=== PATIENT | female | born 1945 | race Caucasian/White ===

== ENCOUNTER 2017-03-15 09:43 | Outpatient (RCR) | payer MEDICARE, SELFPAY | END 2017-04-03 23:59 | LOC: NS 09:43 | PROVIDERS: Family Provider Internal Medicine; PCP Internal Medicine; Visit Provider Internal Medicine | DX: E11.65 Type 2 diabetes mellitus with hyperglycemia (principal); E23.2 Diabetes insipidus; Z71.3 Dietary counseling and surveillance | CPT/HCPCS: 97803 ==

== ENCOUNTER → 2017-04-09 09:12 | Outpatient (CLI) | payer MEDICARE, SELFPAY ==
[2017-02-08 08:31] VITALS: BMI 37.8
[2017-02-08 09:07] VITALS: BP 148/72
[2017-04-10 08:54] LABS: PTHIN 168.1 pg/mL (18.4-80.1)
== END ==
PROVIDERS: Family Provider Internal Medicine; PCP Internal Medicine; Visit Provider Internal Medicine Nephrology
DX: E21.3 Hyperparathyroidism, unspecified (principal)
CPT/HCPCS: 36415; 83970

== ENCOUNTER 2017-04-18 09:30 | Outpatient (RCR) | payer MEDICARE, SELFPAY ==
[2017-02-08 08:31] VITALS: BMI 37.8
[2017-02-08 09:07] VITALS: BP 148/72
== END 2017-04-18 09:31 ==
LOC: NS 09:30
PROVIDERS: Family Provider Internal Medicine; PCP Internal Medicine; Visit Provider Internal Medicine
DX: E11.65 Type 2 diabetes mellitus with hyperglycemia (principal); E23.2 Diabetes insipidus; Z68.38 Body mass index [BMI] 38.0-38.9, adult; Z71.3 Dietary counseling and surveillance
CPT/HCPCS: 97803

== ENCOUNTER → 2017-04-29 10:37 | Outpatient (CLI) | payer MEDICARE, SELFPAY ==
[2017-04-29 16:34] LABS: Albumin, Serum 3.4 g/dL (3.2-5.0); BUN 39 mg/dL (7-18); Calcium,Total 8.6 mg/dL (8.5-10.1); Chloride 111 mmol/L (98-107); Creatinine, Serum 1.77 mg/dL (0.55-1.02); EST Glomerular Filtration Rate 30 mL/min (>60); Est Glom Filt Rate - Afr Amer 36 mL/min (>60); Glucose 195 mg/dL (74-106); Phosphorus 4.2 mg/dL (2.5-4.9); Potassium 4.4 mmol/L (3.5-5.1); Sodium Level 142 mmol/L (136-145)
== END ==
LOC: MTLAB 10:39 → POLAB3 14:54
PROVIDERS: Family Provider Internal Medicine; PCP Internal Medicine; Visit Provider Internal Medicine Nephrology
DX: N18.3 Chronic kidney disease, stage 3 (moderate) (principal)
CPT/HCPCS: 36415; 80069

== ENCOUNTER → 2017-04-30 11:54 | Outpatient (CLI) | payer MEDICARE, SELFPAY ==
[2017-04-30 14:12] LABS: Protein, Urine (Random) 175.6 mg/dL (<11.9); Protein:Creat Ratio 2201 mg/g CRE (0-200)
== END ==
PROVIDERS: Family Provider Internal Medicine; PCP Internal Medicine; Visit Provider Internal Medicine Nephrology
DX: E11.22 Type 2 diabetes mellitus with diabetic chronic kidney disease (principal)
CPT/HCPCS: 82570; 84156

== ENCOUNTER → 2017-05-16 08:44 | Outpatient (CLI) | payer MEDICARE, SELFPAY ==
--- NOTE | 2017-05-16 08:47 | RDU_ITS ---
Reason For Study: renovascular HTN Right Renal Artery Left Renal Artery Right renal artery ostium 167/30.6 Left renal artery ostium 137/14.7 RSV/EDV. PSV/EDV. Right renal artery proximal Left renal artery proximal PSV/EDV 144/18.3 PSV/EDV. 182/18.3 . Right renal artery mid 156/15.9 Left renal artery mid 121/18.3 PSV/EDV. PSV/EDV . Right renal artery distal 125/18.3 Left renal artery distal 132/18.3 PSV/EDV. PSV/EDV. Right Renal Parenchyma Left Renal Parenchyma Upper Pole Medula 36.0/7.75 Left upper pole medulla 57.4/8.56 PSV/EDV. PSV/EDV . Right upper pole medulla EDR .22 . Left upper pole medulla EDR .15 . Right upper pole medulla R.I. .78 . Left upper pole medulla R.I. .85 . Upper [place] Cortx 22.6 PSV/EDV. UP Cortex 25.1 PSV/EDV. Right upper pole cortex EDR 0 . Left upper pole cortex EDR 0 . Right upper pole cortex R.I. 1.0 . Left upper pole cortex R.I. 1.0 . Right lower Pole medulla 26.3/5.5 Left lower Pole medulla 35.6/5.47 PSV/EDV . PSV/EDV . Right lower pole medulla EDR .21 . Left lower pole medulla EDR .15 . Right lower pole medulla R.I. .79 . Left lower pole medulla R.I. .85 . Lower Pole Cortex 13.8/3.97 Lower Pole Cortx 20.1 PSV/EDV. PSV/EDV. Left lower pole cortex EDR 0 . Right lower pole cortex EDR .29 . Left lower pole cortex R.I. 1.0 . Right lower pole cortex R.I. .71 . Left Renal Hilar Right Renal Hilar Left hilar acceleration time 81 Right hilar acceleration time 59 m/sec. m/sec. LT Hilar avg 52.6/7.33 PSV/EDV . Right Hilar avg 60.6/6.38 PSV/EDV. Left Renal Dimensions Right Renal Dimensions Left kidney size 11.1 cm . Right kidney size 11.2 cm . Left cortical dimension 1.34 cm . Right cortical dimension 1.46 cm . Aorta Proximal abdominal aorta 1.38 x 1.46 cm . Proximal abdominal aorta peak systolic velocity is 107 cm/sec . Limited views of the Aorta due to bowel gas and pt body habitus. Interpretation Summary <60% stenosis bilateral renal arteries with renal artery to aortic ratio not possible secondary to mildly elevated aortic velocity. Maintained renal length at 11.2 cm on the right and 11.1 cm on the left. Notably abnormal renal resistivity indices consistent with intrinsic renal parenchymal disease. Findings are not significantly different from a previous exam of 02/20/13 regarding renal artery flow. Ordering Physician: Ivanna Aguilar Performed By: Reyes Moreno RVT
== END ==
PROVIDERS: Family Provider Internal Medicine; PCP Internal Medicine; Visit Provider Internal Medicine Nephrology
DX: I15.0 Renovascular hypertension (principal)
CPT/HCPCS: 93975

== ENCOUNTER → 2017-05-20 07:15 | Outpatient (CLI) | payer MEDICARE, SELFPAY ==
[2017-05-20 10:10] LABS: Absolute Lymphocyte Count 1.49 X10^3/ul (0.83-4.51); Absolute Neutrophil Count 5.5 X10^3/uL (2.0-7.7); Basophil# 0.02 X10^3/uL; Basophil% 0.2 % (0-1); Eosinophil# 0.72 X10^3/uL; Eosinophils% 8.3 % (0-5); Hematocrit 30.3 % (37-47); Hemoglobin 10.1 g/dl (12.0-15.0); Lymphocyte # 1.49 X10^3/ul (4.0); Lymphocyte % 17.2 % (19-41); Mean Corp Hgb Conc 33.3 g/gl (32-36); Mean Corpuscular Hgb 30.4 pg (27.0-32.0); Mean Corpuscular Volume 91.3 fL (81-99); Mean Platelet Vol. 10.7 fl (6.2-12.0); Monocyte# 0.89 X10^3/uL; Monocyte% 10.3 % (0-10); Neutrophil # 5.52 X10^3/uL (2.7-7.7); Neutrophil % 63.9 % (47-70); POSITIVE COUNT NO; POSITIVE DIFFERENTIAL NO; POSITIVE MORPHOLOGY NO; Platelet Count 168 K/mm3 (150-450); RBC Distribution Width CV 13.2 % (11.6-14.6); RBC Distribution Width SD 43.8 fl (35.1-43.9); Red Blood Count 3.32 M/mm3 (4.2-5.4); White Blood Count 8.7 K/mm3 (4.4-11.0)
[2017-05-20 10:41] LABS: ALB/GLOB Ratio 1.1 RATIO (0.9-2.4); AST(SGOT) 22 U/L (15-37); Alanine Aminotransfer ALT/SGPT 36 U/L (13-56); Albumin, Serum 3.5 g/dL (3.2-5.0); Alkaline Phosphatase 83 U/L (45-117); Anion Gap 8 (5-15); BUN 36 mg/dL (7-18); BUN/Creat Ratio 18.8 RATIO (10-20); Calcium,Total 8.5 mg/dL (8.5-10.1); Chloride 113 mmol/L (98-107); Creatinine, Serum 1.92 mg/dL (0.55-1.02); EST Glomerular Filtration Rate 27 mL/min (>60); Est Glom Filt Rate - Afr Amer 33 mL/min (>60); Globulin 3.2 g/dL (2.2-4.2); Glucose 65 mg/dL (74-106); Potassium 4.1 mmol/L (3.5-5.1); Protein, Total 6.7 g/dL (6.4-8.2); Sodium Level 143 mmol/L (136-145)
== END ==
PROVIDERS: Family Provider Internal Medicine; PCP Internal Medicine; Visit Provider Internal Medicine Rheumatology
DX: L40.59 Other psoriatic arthropathy (principal); K21.0 Gastro-esophageal reflux disease with esophagitis; M17.0 Bilateral primary osteoarthritis of knee; L40.8 Other psoriasis; M65.30 Trigger finger, unspecified finger; E10.9 Type 1 diabetes mellitus without complications; I10 Essential (primary) hypertension
CPT/HCPCS: 36415; 80053; 85025

== ENCOUNTER → 2017-05-22 11:34 | Outpatient (CLI) | payer MEDICARE, SELFPAY ==
[2017-05-22 14:45] LABS: Hemoglobin A1c 6.6 % (4.2-6.3)
== END ==
PROVIDERS: Family Provider Internal Medicine; PCP Internal Medicine; Visit Provider Nurse Practitioner Family
DX: E11.9 Type 2 diabetes mellitus without complications (principal); Z79.4 Long term (current) use of insulin
CPT/HCPCS: 36415; 82043; 82570; 83036

== ENCOUNTER → 2017-05-28 11:26 | Outpatient (CLI) | payer MEDICARE, SELFPAY ==
[2017-05-28 14:54] LABS: Microalbumin:Creatinine Ratio 895.8 mg/g CRE (<30 mg/g CRE)
== END ==
PROVIDERS: Family Provider Internal Medicine; PCP Internal Medicine; Visit Provider Internal Medicine
DX: E11.9 Type 2 diabetes mellitus without complications (principal); Z79.4 Long term (current) use of insulin
CPT/HCPCS: 82043; 82570

== ENCOUNTER → 2017-06-07 11:21 | Outpatient (CLI) | payer MEDICARE, SELFPAY ==
[2017-06-07 13:11] LABS: Albumin, Serum 3.5 g/dL (3.2-5.0); BUN 32 mg/dL (7-18); BUN/Creat Ratio 17.5 RATIO (10-20); Calcium,Total 8.9 mg/dL (8.5-10.1); Chloride 113 mmol/L (98-107); Creatinine, Serum 1.83 mg/dL (0.55-1.02); EST Glomerular Filtration Rate 29 mL/min (>60); Est Glom Filt Rate - Afr Amer 35 mL/min (>60); Glucose 101 mg/dL (74-106); Potassium 4.4 mmol/L (3.5-5.1); Sodium Level 144 mmol/L (136-145)
== END ==
PROVIDERS: Family Provider Internal Medicine; PCP Internal Medicine; Visit Provider Internal Medicine Nephrology
DX: N18.3 Chronic kidney disease, stage 3 (moderate) (principal)
CPT/HCPCS: 36415; 80069

== ENCOUNTER → 2017-07-08 09:03 | Outpatient (CLI) | payer MEDICARE, SELFPAY ==
[2017-07-08 09:55] LABS: Absolute Lymphocyte Count 1.41 X10^3/ul (0.83-4.51); Absolute Neutrophil Count 5.4 X10^3/uL (2.0-7.7); Basophil# 0.03 X10^3/uL; Basophil% 0.4 % (0-1); Eosinophils% 8.4 % (0-5); Hematocrit 29.6 % (37-47); Hemoglobin 9.8 g/dl (12.0-15.0); Lymphocyte # 1.41 X10^3/ul (4.0); Lymphocyte % 16.9 % (19-41); Mean Corp Hgb Conc 33.1 g/gl (32-36); Mean Corpuscular Hgb 30.7 pg (27.0-32.0); Mean Corpuscular Volume 92.8 fL (81-99); Mean Platelet Vol. 10.4 fl (6.2-12.0); Monocyte# 0.77 X10^3/uL; Monocyte% 9.2 % (0-10); Neutrophil # 5.41 X10^3/uL (2.7-7.7); Neutrophil % 64.9 % (47-70); Platelet Count 163 K/mm3 (150-450); RBC Distribution Width CV 13.9 % (11.6-14.6); RBC Distribution Width SD 45.5 fl (35.1-43.9); Red Blood Count 3.19 M/mm3 (4.2-5.4); White Blood Count 8.3 K/mm3 (4.4-11.0)
[2017-07-08 10:14] LABS: POSITIVE COUNT NO; POSITIVE DIFFERENTIAL NO; POSITIVE MORPHOLOGY NO
[2017-07-08 10:18] LABS: AST(SGOT) 19 U/L (15-37); Alanine Aminotransfer ALT/SGPT 33 U/L (13-56); Albumin, Serum 3.3 g/dL (3.2-5.0); Alkaline Phosphatase 77 U/L (45-117); Anion Gap 7 (5-15); BUN 28 mg/dL (7-18); BUN/Creat Ratio 15.6 RATIO (10-20); Calcium,Total 8.6 mg/dL (8.5-10.1); Chloride 117 mmol/L (98-107); Creatinine, Serum 1.79 mg/dL (0.55-1.02); EST Glomerular Filtration Rate 30 mL/min (>60); Est Glom Filt Rate - Afr Amer 36 mL/min (>60); Globulin 3.3 g/dL (2.2-4.2); Glucose 106 mg/dL (74-106); Potassium 4.5 mmol/L (3.5-5.1); Protein, Total 6.6 g/dL (6.4-8.2); Sodium Level 146 mmol/L (136-145)
== END ==
PROVIDERS: Family Provider Internal Medicine; PCP Internal Medicine; Visit Provider Internal Medicine Rheumatology
DX: L40.59 Other psoriatic arthropathy (principal); M17.0 Bilateral primary osteoarthritis of knee; L40.8 Other psoriasis; M65.30 Trigger finger, unspecified finger; E10.9 Type 1 diabetes mellitus without complications; I10 Essential (primary) hypertension; K21.0 Gastro-esophageal reflux disease with esophagitis
CPT/HCPCS: 36415; 80053; 85025

== ENCOUNTER 2017-08-02 05:57 | Inpatient (IN) | payer MEDICARE, SELFPAY ==
[2017-08-02] VITALS (14 sets, daily range): BP systolic 160–233; BP diastolic 52–84; PULSE 66–87; RESP 11–20; TEMP 36.7–36.9; O2SAT 94–97; BMI 36.6
--- NOTE | 2017-08-02 06:00 | ED.RN ---
CALLED FOR EKG PER RN REQUEST, PULLED OLD EKG'S FOR
--- NOTE | 2017-08-02 06:35 | RAD_ITS ---
STUDY: X-RAY CHEST REASON FOR EXAM: Female, 71 years old. Shortness of breath TECHNIQUE: PA and lateral views of the chest. COMPARISON: February 19, 2013 FINDINGS: There are monitoring devices. There is interstitial accentuation. There are right perihilar and lower lung groundglass opacities. There is thickening of the fissure and blunting of the right costophrenic recess with small effusion. There is mild cardiac enlargement. Normal mediastinum and everardo. There is prominence of the pulmonary hilar arteries and peripheral pulmonary arteries, consistent with congestive heart failure (CHF). Normal visualized aortic arch and descending thoracic aorta. Normal visualized thoracic spine. Normal visualized ribs, clavicles, and shoulders. There is no demonstrated abnormality of the visualized soft tissue structures of the upper abdomen. RAD/Chest PA and Lateral IMPRESSION: CHF with right lower lung infiltrate or edema. Small pleural effusion. Electronically Signed: Sreekanth Guadarrama MD at 8:08 EDT , Service support ,
--- NOTE | 2017-08-02 06:35 | EKG12_ITS ---
Test Reason : Blood Pressure : / mmHG Vent. Rate : 075 BPM Atrial Rate : 075 BPM P-R Int : 132 ms QRS Dur : 084 ms QT Int : 390 ms P-R-T Axes : 059 024 059 degrees QTc Int : 435 ms Sinus rhythm with occasional Premature ventricular complexes Nonspecific ST abnormality Abnormal ECG Confirmed by EVA HEALY ([id number]), state editor GABRIELLE CORDERO ([id number]) on 08/12/2017 6:21:39 PM Referred By: AIDA Confirmed By:EVA HEALY
--- NOTE | 2017-08-02 06:37 | ED.VISSUMM ---
- ER Visit Summary Date of Service: 08/02/17 Chief Complaint: Dyspnea History of Present Illness: The patient is a 71 F increasing dyspnea over the past month. Symptoms worse with exertion. No chest pains. No cough. Increased leg swelling over the past couple weeks. No history of coronary disease or congestive heart failure. Denies recent travel, surgeries, or immobilizations. No history of PE or DVT. History of malignant hypertension on medications. States 3 chronic kidney disease with creatinine at baseline at 3 followed by nephrology, Dr. Aguilar. Denies headaches nausea, vomiting. States has been noticing intermittent dark stools over the past 5 weeks. 10 days ago started on iron supplements for anemia with blood checks by her application operations engineer. Denies any NSAID use. She does take baby aspirins. Physical Examination: General: Alert and oriented ?3, no acute distress HEENT: Normocephalic, atraumatic. Mild pale conjunctiva moist mucosa membranes Neck: supple, nontender. Cardiovascular: Regular rate and rhythm, no murmurs Respiratory: Normal breath sounds, symmetric, no distress Abdomen: Soft, nontender, nondistended Rectal: Extremities: Nontender, no edema, pulses intact ?4 Neuro: no focal neurological deficits. skin: Mild pallor Test Results: [] Emergency Department Course and Treatment: Patient worked up for her dyspnea symptoms. Pulse ox stable. Heart rate stable. She elevated blood pressure on arrival, monitoring transiently slowly improving. She history of malignant hypertension on multiple medications along with renal artery stenosis, she states her blood pressure normally runs high and fluctuates. Denies headaches or chest pains. No clinical leg swelling. Labs and images obtained. Patient will be signed out to morning physician for follow-up on testing. Treatment Plan: [] Disposition: Pending Impression: 1. Dyspnea This note was generated with [employer] software. It may contain incorrect words, spelling, and punctuation that were not noted in review of the chart prior to signing ED Disposition - Plan for ED Patient: Disposition: Acute Care Hospital [facility] Chief Complaint: Shortness of Breath
[2017-08-02 06:44] LABS: Absolute Lymphocyte Count 1.45 X10^3/ul (0.83-4.51); Basophil# 0.02 X10^3/uL; Basophil% 0.3 % (0-1); Eosinophil# 0.68 X10^3/uL; Eosinophils% 8.8 % (0-5); Hematocrit 28.3 % (37-47); Hemoglobin 9.3 g/dl (12.0-15.0); Lymphocyte # 1.45 X10^3/ul (4.0); Lymphocyte % 18.7 % (19-41); Mean Corp Hgb Conc 32.9 g/gl (32-36); Mean Corpuscular Hgb 29.7 pg (27.0-32.0); Mean Corpuscular Volume 90.4 fL (81-99); Mean Platelet Vol. 10.3 fl (6.2-12.0); Monocyte# 0.63 X10^3/uL; Monocyte% 8.1 % (0-10); Neutrophil # 4.95 X10^3/uL (2.7-7.7); Platelet Count 154 K/mm3 (150-450); RBC Distribution Width CV 14.3 % (11.6-14.6); RBC Distribution Width SD 46.9 fl (35.1-43.9); Red Blood Count 3.13 M/mm3 (4.2-5.4); White Blood Count 7.7 K/mm3 (4.4-11.0)
[2017-08-02 06:49] LABS: POSITIVE COUNT NO; POSITIVE DIFFERENTIAL NO; POSITIVE MORPHOLOGY NO
--- NOTE | 2017-08-02 06:59 | NURSING ---
BLUE TOP HEMOLIZED, LAB WILL REPRINT LABEL
[2017-08-02 07:03] LABS: Anion Gap 8 (5-15); BUN 29 mg/dL (7-18); BUN/Creat Ratio 15.8 RATIO (10-20); Calcium,Total 8.6 mg/dL (8.5-10.1); Chloride 116 mmol/L (98-107); Creatinine, Serum 1.84 mg/dL (0.55-1.02); EST Glomerular Filtration Rate 29 mL/min (>60); Est Glom Filt Rate - Afr Amer 35 mL/min (>60); Glucose 158 mg/dL (74-106); Potassium 4.2 mmol/L (3.5-5.1); Sodium Level 145 mmol/L (136-145)
--- NOTE | 2017-08-02 07:37 | NURSING ---
BLUE TOP NEEDS REDRAWN, RN AWARE
--- NOTE | 2017-08-02 08:25 | NURSING ---
CALLED LAB, TALKED TO ОЛЕГ IN [facility]. BTNP WILL BE [address] SEGURA AWARE
[2017-08-02 08:32] LABS: International Normalized Ratio 1.1; Prothrombin Time (Protime)PT. 13.7 SECONDS (11.7-14.9)
[2017-08-02 08:33] LABS: Partial Thromboplast Time 29.2 Seconds (24.1-36.2)
[2017-08-02] MEDS: Ipratropium/Albuterol Sulfate 3 ML AMPUL.NEB INHALATION (08:49)
--- NOTE | 2017-08-02 08:51 | NURSING ---
DR KARINE SEGURA
--- NOTE | 2017-08-02 08:52 | NURSING ---
PCU DYSPNEA, CHF, ANEMIA KARINE SEGURA
--- NOTE | 2017-08-02 08:53 | ED.VISSUMM ---
- ER Visit Summary Date of Service: 08/02/17 Chief Complaint: [Dyspnea] History of Present Illness: The patient is a 71 F [presented to ER with complaint of dyspnea and was fully evaluated by Dr. Gutierrez Aguilar. Care of patient turned over to me awaiting lab results and final disposition. Patient's chest x-ray was interpreted by radiology as CHF with edema in the right lower lobe. Patient became very dyspneic on return from restroom and tachypneic with respiratory rate in the mid 20s. Patient had some expiratory wheezes noted. Patient was ordered a DuoNeb aerosol and 40 mg of Lasix IV.] Physical Examination: [] Test Results: [BT BUILDING CUSTODIAN pending.] Emergency Department Course and Treatment: [] Treatment Plan: [Admit for further workup and evaluation of her new onset CHF] Disposition: [Admit] Impression: [Dyspnea CHF Anemia] This note was generated with [employer] dictation software. It may contain incorrect words, spelling, and punctuation that were not noted in review of the chart prior to signing ED Disposition - Plan for ED Patient: Chief Complaint: Shortness of Breath Referrals: Hamzah Wallis MD [Primary Care Provider] -
--- NOTE | 2017-08-02 08:59 | CASEMGMT ---
Social Work Note SW in to complete initial assessment. Introduced self and role at [facility]. Pt presents with pleasant affect as evidenced by smiling throughout conversation, and is accompanied by her spouse during assessment. Reports to live with her spouse in a one-story home with three entry steps. Denies access issues and is independent with ADL's. Still drives. No DME in the home, but does not anticipate need for DME at discharge. Confirms that her HCPOA is her spouse, Marcos, and believes we have her advanced directives on file. Confirms that her PCP is Dr. Wallis and her preferred pharmacy is [facility] in [place]. Other specialists she sees are Dr. Hui, Dr. Aguilar and Dr. Mace. Anticipates returning home at discharge. RN CM to follow for discharge planning as needed. Plan: Home Yuliet Clayton, SOCIAL PROBLEMS SPECIALIST, TUBE COREMAKER
[2017-08-02] MEDS: Furosemide 40 MG/4 ML Vial IV ×2 (09:30→17:06)
--- NOTE | 2017-08-02 10:10 | NURSING ---
CALLED LAB, TALKED TO ОЛЕГ. BTNP WILL BE DONE IN 7 MIN.
[2017-08-02 10:18] LABS: BNP,B-Type NATRIURETIC PEPTIDE 281.9 pg/mL (0-100)
--- NOTE | 2017-08-02 10:25 | NURSING ---
PT WITH SYSTOLIC BP OF >200 CONTINUES AND OFFGOING MD AWARE WELL DAYSHIFT DRGanga WITH NO ORDERS
--- NOTE | 2017-08-02 10:42 | ECHOD_ITS ---
Reason For Study: CHF Procedure This was a 2D Doppler, Color Flow transthoracic echocardiogram. Exam performed portable in patient room. Left Ventricle Moderate concentric left ventricular hypertrophy. The estimated ejection fraction is 65 %. Stage 2 diastolic dysfunction. No regional wall motion abnormalities noted. Right Ventricle Normal size and thickness. Normal systolic function. Atria The left atrium is moderately enlarged. Normal right atrium. Normal atrial septum. Mitral Valve The mitral valve is structurally normal. No prolapse or stenosis seen. Trivial mitral valve insufficiency. Tricuspid Valve Normal tricuspid valve. Trivial tricuspid valve insufficiency. Right ventricular systolic pressure estimated to be 51 mmHg. Moderate pulmonary hypertension. Aortic Valve Normal aortic valve. Trisinus/trileaflet aortic valve. Pulmonic Valve Normal pulmonic valve. Trivial pulmonic valve insufficiency. Great Vessels Normal aortic root. Normal arch. Normal inferior vena cava. Inferior vena cava collapse with sniff. Pericardium/Pleural No pericardial effusion. MMode/2D Measurements & Calculations LVIDd: 4.7 cm IVSd: 1.5 cm Ao root diam: 3.1 cm LVIDs: 2.7 cm LVPWd: 1.3 cm LA dimension: 4.4 cm FS: 43.1 % LAV(MOD-bp): 77.4 ml LA A4 area: 25.4 cm2 RA A4 area: 19.7 cm2 LAV(MOD-bp) Indexed: 37.7 ml/m2 LAV(MOD-sp2): 59.1 ml LAV(MOD-sp4): 86.8 ml Time Measurements MV dec time: 0.16 sec Doppler Measurements & Calculations MV E max oj: 110.4 cm/sec Lat Peak E' Oj: 8.6 cm/sec Med Peak E' Oj: 7.2 cm/sec MV A max oj: 91.3 cm/sec E/E' lat: 12.9 E/E' med: 15.3 MV E/A: 1.2 MV V2 max: 124.1 cm/sec MV P1/2t max oj: 124.1 cm/sec Ao V2 max: 155.9 cm/sec MV max P.2 mmHg MV P1/2t: 79.0 msec Ao max P.7 mmHg MV V2 mean: 73.1 cm/sec MV dec slope: 460.3 cm/sec2 Ao V2 mean: 95.3 cm/sec MV mean P.5 mmHg MVA(P1/2t): 2.8 cm2 Ao mean P.3 mmHg MV V2 VTI: 37.3 cm Ao V2 VTI: 32.8 cm LV V1 max: 113.4 cm/sec PA V2 max: 129.5 cm/sec TR max oj: 337.5 cm/sec LV V1 max P.1 mmHg TR max P.6 mmHg LV V1 mean P.6 mmHg LV V1 mean: 76.1 cm/sec LV V1 VTI: 28.0 cm Interpretation Summary Moderate concentric left ventricular hypertrophy. The estimated ejection fraction is 65 %. Stage 2 diastolic dysfunction. The left atrium is moderately enlarged. Trivial mitral valve insufficiency. Trivial tricuspid valve insufficiency. Right ventricular systolic pressure estimated to be 51 mmHg. Moderate pulmonary hypertension. Compared to echo report dated 02/19/2013, LV function has remained the same, but RVSP has increased from 30 to 51 mm Hg. Ordering Physician: Bebeto Lubin Referring Physician: Hamzah Wallis Performed By: Rock Moura RCS
[2017-08-02 11:35] LABS: Bedside Glucose 176 mg/dL (70-110)
--- NOTE | 2017-08-02 12:08 | PCM.HP.STD ---
<Greg Guerra - Last Filed: 08/02/17 12:08> Problem List (1) CHF (congestive heart failure) Status: Acute (2) GERD (gastroesophageal reflux disease) Status: Acute (3) Chronic kidney disease, stage 3 (moderate) Status: Chronic (4) HLD (hyperlipidemia) Status: Chronic (5) HTN (hypertension) Status: Chronic (6) Diabetes mellitus Status: Chronic History of Present Illness Date of Admission: 08/02/17 Chief Complaint: sob The patient is a 71 year old F with a hx of uncontrolled HTN, TIA, obesity, dmt2, CKDIII, HLD, GERD, who presented to the ER with increased SOB for the last month most severely the last 2 days with increased wheezing and swelling of her legs. She is worse with light exertion, even walking across the room. She has a hx of HTN and nonspecific palpitations for which she sees Dr. Hui. She does not have a history of CHF. She has noticed increased weight gain of 15 pounds. She sleeps with the head of her bed raised and wakes up in the morning coughing, SOB, and wheezing. She has no hx of COPD/asthma/smoking. She has no fevers or chills. She has no difficulty emptying her bladder and has been urinating frequently since receiving lasix in the ER. She does have some midsternal chest pain that she associates with eating. She denies any recent changes to her cardiac medications. [] Past Medical History Past Medical History (Chronic Problems): Chronic Problems (Last Reviewed 07/10/17 @ 13:35 by Christal De Leon) Bilateral edema of lower extremity (Chronic) Shortness of breath (Chronic) GERD (gastroesophageal reflux disease) (Chronic) Uncontrolled hypertension (Chronic) Chronic kidney disease, stage 3 (moderate) (Chronic) HLD (hyperlipidemia) (Chronic) HTN (hypertension) (Chronic) Type 2 diabetes mellitus treated with insulin (Chronic) Controlled type 2 diabetes mellitus with insulin therapy (Chronic) Left carotid bruit (Chronic) HTN (hypertension), malignant (Chronic) 5 drug therapy Rheumatoid arthritis (Chronic) Diabetes mellitus (Chronic) History of diverticulosis (Chronic) History of esophageal reflux (Chronic) Simple obesity (Chronic) Psoriasis (Chronic) Systolic hypertension with cerebrovascular disease (Chronic) multiple lacunar strokes related to HTN left tongue deviation Renal artery atherosclerosis (Chronic) moderate 3 renal arteries on left, anatomical variation Medical History: Medical History (Last Reviewed 07/10/17 @ 13:35 by Christal De Leon) Uncontrolled hypertension (Chronic) I10 Chronic kidney disease, stage 3 (moderate) (Chronic) N18.3 HLD (hyperlipidemia) (Chronic) E78.5 HTN (hypertension) (Chronic) I10 Hx of mini strokes Chronic osteoarthritis M19.90 GERD (gastroesophageal reflux disease) K21.9 GERD (gastroesophageal reflux disease) K21.9 Hyperlipidemia E78.5 Hypertension I10 Neuropathy G62.9 kidney ds Allergies amlodipine Allergy (Verified 08/02/17 06:48) Unknown azithromycin [From Zithromax] Allergy (Verified 08/02/17 06:48) Unknown bumetanide Allergy (Verified 08/02/17 06:48) Unknown chlorthalidone Allergy (Verified 08/02/17 06:48) Unknown clonidine HCl [From Catapres] Allergy (Verified 08/02/17 06:48) Rash diltiazem Allergy (Verified 08/02/17 06:48) Unknown furosemide Allergy (Verified 08/02/17 06:48) Unknown gemfibrozil Allergy (Verified 08/02/17 06:48) Unknown hydralazine [Hydralazine] Allergy (Verified 08/02/17 06:48) Swelling losartan [Losartan] Allergy (Verified 08/02/17 06:48) Unknown minoxidil Allergy (Verified 08/02/17 06:48) Unknown nifedipine Allergy (Verified 08/02/17 06:48) Unknown simvastatin [From Zocor] Allergy (Verified 08/02/17 06:48) Unknown triamterene [From Dyazide] Allergy (Verified 08/02/17 06:48) Unknown valdecoxib [From Bextra] Allergy (Verified 08/02/17 06:48) Unknown verapamil [Verapamil] Allergy (Verified 08/02/17 06:48) Unknown atorvastatin Adverse Reaction (Unknown, Verified 08/02/17 10:56) Swelling and cramping of the legs clonidine [From Catapres] Adverse Reaction (Unknown, Verified 08/02/17 10:56) Unknown esomeprazole [From Nexium] Adverse Reaction (Unknown, Verified 08/02/17 10:56) Swelling metformin [From Glucophage] Adverse Reaction (Unknown, Verified 08/02/17 10:56) Other kidney fxn worsened rosuvastatin [From Crestor] Adverse Reaction (Unknown, Unverified 08/02/17 10:56) leg cramps/ swelling atorvastatin calcium [From Lipitor] Adverse Reaction (Verified 08/02/17 06:48) Leg cramps/aching celecoxib [From Celebrex] Adverse Reaction (Verified 08/02/17 06:48) Leg aching hydrochlorothiazide Adverse Reaction (Verified 08/02/17 06:48) Legs aching indapamide Adverse Reaction (Verified 08/02/17 06:48) Other insulin detemir [From Levemir] Adverse Reaction (Verified 08/02/17 06:48) Unknown lansoprazole [From Prevacid] Adverse Reaction (Verified 08/02/17 06:48) Legs aching metformin HCl [From Glucophage] Adverse Reaction (Verified 08/02/17 06:48) Diarrhea pravastatin Adverse Reaction (Verified 08/02/17 06:48) Legs aching rosuvastatin calcium [From Crestor] Adverse Reaction (Verified 08/02/17 06:48) Legs aching amiloride + hydrochlorothiazide Adverse Reaction (Unknown, Uncoded 08/02/17 06:48) Unknown Home Medications: Ambulatory Orders Medication Instructions Recorded Carvedilol [Coreg] 25 mg PO BID 10/31/16 Hydroxychloroquine [Plaquenil] 200 mg PO BIDCM 10/31/16 traMADol [Ultram (G)] 50 mg PO Q4H PRN PRN 10/31/16 ascorbate calcium 500 mg capsule 500 mg PO QDAY 02/07/17 lisinopril 40 mg tablet 40 mg PO QDAY 02/07/17 aspirin 81 mg tablet,delayed 81 mg PO QDAY 02/13/17 release coenzyme Q10 100 mg capsule 100 mg PO QDAY 02/13/17 glucose 4 gram chewable tablet 4 g PO ONCE PRN #30 tab 02/13/17 doxazosin 2 mg tablet 2 mg PO QDAY #30 tab 03/06/17 insulin glargine (U-100) 100 50 unit SC QDAY ml 04/12/17 unit/mL (3 mL) subcutaneous pen omeprazole 20 mg capsule,delayed 20 mg PO BID cap 06/11/17 release amlodipine 10 mg tablet 10 mg PO DAILY tab 07/25/17 furosemide 20 mg tablet 20 mg PO QDAY tab 07/25/17 Glimepiride [Amaryl] 2 mg PO QDAY 08/02/17 Surgical History: Surgical History (Last Reviewed 07/10/17 @ 13:35 by Christal De Leon) History of appendectomy Z90.49 S/P breast lumpectomy Z98.890 benign gallbladder removed surgery on finger due to infection Surgical History: appendectomy, cholecystectomy Psychiatric History: 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psych hx [employer] History: 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[employer] history Lives: Spouse/ Significant Other Smoking Status: Never smoker Tobacco Use: Non-smoker Alcohol: None Drugs: None - *Family History Maternal Family History: Family History (Last Reviewed 07/10/17 @ 13:35 by Christal De Leon) Mother Diabetes Heart disease CVA (cerebral vascular accident) Myocardial infarction Father Cancer Brother Kidney disease Sister Diabetes Hypertension Mother Diabetes Heart disease CVA (cerebral vascular accident) Myocardial infarction Father Cancer Sister Hypertension Diabetes History Items: 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history Review of Systems Constitutional: Denies: Chills, Fever, Weight Change HEENT: Denies: Head Aches, Sinus Congestion, Sinus Drainage Cardiovascular: Reports: Chest Pressure, Edema. Denies: Chest Pain, Palpitations Respiratory: Reports: Cough, Shortness of Breath, Shortness of breath at rest, Shortness of breath upon exertion, Sputum production, Wheezing Gastrointestinal: Denies: Abdominal Pain, Nausea, Vomiting Genitourinary: Denies: Dysuria Musculoskeletal: Denies: Joint Pain, Joint Tenderness Skin: Denies: Rash, Wounds Neurological: Denies: Numbness, Tingling, Focal weakness Psychiatric: Denies: Anxiety, Depression, Homicidal Ideations, Suicidal Ideations Hematologic/ Lymphatic: Denies: Easy Bruising, Easy Bleeding VTE Information - Inpt Only VTE Present on Admission: No VTE Mechan Device Prophylaxis: None VTE Pharm Prophylaxis ordered?: Yes Patient Problems: Active and Suspected Problems (Last Reviewed 07/10/17 @ 13:35 by Christal De Leon) CHF (congestive heart failure) (Acute) - Physical Exam General: Alert, Oriented x3, Cooperative HEENT: Atraumatic, PERRLA, EOMI, Normocephalic Neck: Supple, No JVD, Negative Carotid Bruits Lungs: Wheezes - faint end exp Cardiovascular: Regular rate, No murmurs Abdomen: Bowel Sounds Present, Soft, Non Tender Extremities: Capillary Refill Less than 3 Seconds, Edema - 2+ pitting edema BLE Skin: No rashes, No breakdown Musculoskeletal: No Tenderness to Palpation of Joints or Extremities Neurological: Cranial nerves II-XII grossly intact Psych/Mental Status: Normal Affect, Appropriate, Alert and oriented to time, place, person, mood and affect Vital Signs Temp Pulse Resp BP Pulse Ox 98.3 F 75 14 221/84 H 94 08/02/17 10:52 08/02/17 10:52 08/02/17 10:52 08/02/17 10:53 08/02/17 10:52 Oxygen Delivery Method Room Air Weight: 99.881 kg Body Mass Index (BMI) 36.6 Laboratory Tests Past 24 Hrs 08/02/17 11:00 Troponin I < 0.015 POC Glucose 08/02/17 11:16 POC Glucose 176 H Assessment/Plan All Active Problems (Last Reviewed 07/10/17 @ 13:35 by Christal De Leon) CHF (congestive heart failure) (Acute) 1. Acute CHF exacerbation - subtype unclear. Pt of Dr. Hui, no prior hx. Maintain on tele. Provide IV lasix. -cxr c/w CHF, elevated BNP -BL LE edema, 15 pound weight gain, + orthopnea -Obtain Echo -maintain on tele -trop neg x 2. -already on carlos, BB 2. HTN urgency - as evidenced by Systolic >200 in the presence of heart failure, DC hydralazine as she has allergy - swelling. Add IV lopressor. Numerous drug allergies to antihtn agents. 3. CKD III - trend. Pt of Dr. Aguilar 4. DMt2 with obesity - continue home insulin + SSI 5. Anemia - normocytic - trend. Stool occult blood neg. Suspect 2/2 chronic dz, CKD. 6. Hx of psoriasis - on plaquenil 7. HLD - statin allergic. 8. Hx TIA - on asa, statin intolerant, needs improved HTN control. DVT ppx: heparin DC planning: home when stable This patient was seen by Greg Guerra PA-C under the supervision of Doctor Tristian. <Bebeto Lubin - Last Filed: 08/02/17 16:36> Problem List (1) CHF (congestive heart failure) Status: Acute (2) GERD (gastroesophageal reflux disease) Status: Chronic Qualifiers: (3) Uncontrolled hypertension Status: Chronic (4) Chronic kidney disease, stage 3 (moderate) Status: Chronic (5) HLD (hyperlipidemia) Status: Chronic (6) HTN (hypertension) Status: Chronic Qualifiers: (7) Type 2 diabetes mellitus treated with insulin Status: Chronic (8) HTN (hypertension), malignant Status: Chronic Comment: 5 drug therapy (9) Rheumatoid arthritis Status: Chronic Qualifiers: Rheumatoid arthritis location: multiple sites Rheumatoid factor presence: unspecified presence Qualified Code(s): M06.9 - Rheumatoid arthritis, unspecified; M06.9 - Rheumatoid arthritis, unspecified; M06.9 - Rheumatoid arthritis, unspecified; M06.9 - Rheumatoid arthritis, unspecified (10) History of diverticulosis Status: Chronic (11) History of esophageal reflux Status: Chronic (12) Simple obesity Status: Chronic (13) Psoriasis Status: Chronic History of Present Illness The patient is a 71 year old F is with a long month long history of shortness of breath on exertion. In the emergency room patient had a BMP that was slightly elevated in the 200s chest x-ray is negative. Concern was for the patient's symptoms and was for heart failure. Patient herself denies any chest pain but did receive Lasix in the emergency room. [] Past Medical History Medical History: Medical History (Last Reviewed 08/02/17 @ 16:33 by Bebeto Lubin DO) Uncontrolled hypertension (Chronic) I10 Chronic kidney disease, stage 3 (moderate) (Chronic) N18.3 HLD (hyperlipidemia) (Chronic) E78.5 HTN (hypertension) (Chronic) I10 Hx of mini strokes Chronic osteoarthritis M19.90 GERD (gastroesophageal reflux disease) K21.9 GERD (gastroesophageal reflux disease) K21.9 Hyperlipidemia E78.5 Hypertension I10 Neuropathy G62.9 kidney ds Allergies amlodipine Allergy (Verified 08/02/17 06:48) Unknown azithromycin [From Zithromax] Allergy (Verified 08/02/17 06:48) Unknown bumetanide Allergy (Verified 08/02/17 06:48) Unknown chlorthalidone Allergy (Verified 08/02/17 06:48) Unknown clonidine HCl [From Catapres] Allergy (Verified 08/02/17 06:48) Rash diltiazem Allergy (Verified 08/02/17 06:48) Unknown furosemide Allergy (Verified 08/02/17 06:48) Unknown gemfibrozil Allergy (Verified 08/02/17 06:48) Unknown hydralazine [Hydralazine] Allergy (Verified 08/02/17 06:48) Swelling losartan [Losartan] Allergy (Verified 08/02/17 06:48) Unknown minoxidil Allergy (Verified 08/02/17 06:48) Unknown nifedipine Allergy (Verified 08/02/17 06:48) Unknown simvastatin [From Zocor] Allergy (Verified 08/02/17 06:48) Unknown triamterene [From Dyazide] Allergy (Verified 08/02/17 06:48) Unknown valdecoxib [From Bextra] Allergy (Verified 08/02/17 06:48) Unknown verapamil [Verapamil] Allergy (Verified 08/02/17 06:48) Unknown atorvastatin Adverse Reaction (Unknown, Verified 08/02/17 10:56) Swelling and cramping of the legs clonidine [From Catapres] Adverse Reaction (Unknown, Verified 08/02/17 10:56) Unknown esomeprazole [From Nexium] Adverse Reaction (Unknown, Verified 08/02/17 10:56) Swelling metformin [From Glucophage] Adverse Reaction (Unknown, Verified 08/02/17 10:56) Other kidney fxn worsened rosuvastatin [From Crestor] Adverse Reaction (Unknown, Verified 08/02/17 16:25) leg cramps/ swelling atorvastatin calcium [From Lipitor] Adverse Reaction (Verified 08/02/17 06:48) Leg cramps/aching celecoxib [From Celebrex] Adverse Reaction (Verified 08/02/17 06:48) Leg aching hydrochlorothiazide Adverse Reaction (Verified 08/02/17 06:48) Legs aching indapamide Adverse Reaction (Verified 08/02/17 06:48) Other insulin detemir [From Levemir] Adverse Reaction (Verified 08/02/17 06:48) Unknown lansoprazole [From Prevacid] Adverse Reaction (Verified 08/02/17 06:48) Legs aching metformin HCl [From Glucophage] Adverse Reaction (Verified 08/02/17 06:48) Diarrhea pravastatin Adverse Reaction (Verified 08/02/17 06:48) Legs aching rosuvastatin calcium [From Crestor] Adverse Reaction (Verified 08/02/17 06:48) Legs aching amiloride + hydrochlorothiazide Adverse Reaction (Unknown, Uncoded 08/02/17 06:48) Unknown Surgical History: Surgical History (Last Reviewed 07/10/17 @ 13:35 by Christal De Leon) History of appendectomy Z90.49 S/P breast lumpectomy Z98.890 benign gallbladder removed surgery on finger due to infection Surgical History: appendectomy, cholecystectomy Psychiatric History: 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psych hx [employer] History: 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[employer] history Lives: Spouse/ Significant Other Smoking Status: Never smoker Tobacco Use: Non-smoker Alcohol: None Drugs: None - *Family History Maternal Family History: Family History (Last Reviewed 08/02/17 @ 16:33 by Bebeto Lubin DO) Mother Diabetes Heart disease CVA (cerebral vascular accident) Myocardial infarction Father Cancer Brother Kidney disease Sister Diabetes Hypertension Mother Diabetes Heart disease CVA (cerebral vascular accident) Myocardial infarction Father Cancer Sister Hypertension Diabetes Review of Systems Constitutional: Denies: Chills, Fever, Weight Change HEENT: Denies: Head Aches, Sinus Congestion, Sinus Drainage Cardiovascular: Reports: Chest Pressure, Edema. Denies: Chest Pain, Palpitations Respiratory: Reports: Cough, Shortness of Breath, Shortness of breath at rest, Shortness of breath upon exertion, Sputum production, Wheezing Gastrointestinal: Denies: Abdominal Pain, Nausea, Vomiting Genitourinary: Denies: Dysuria Musculoskeletal: Denies: Joint Pain, Joint Tenderness Skin: Denies: Rash, Wounds Neurological: Denies: Focal weakness, Numbness, Tingling Psychiatric: Denies: Anxiety, Depression, Homicidal Ideations, Suicidal Ideations Hematologic/ Lymphatic: Denies: Easy Bruising, Easy Bleeding VTE Information - Inpt Only VTE Present on Admission: No VTE Mechan Device Prophylaxis: None VTE Pharm Prophylaxis ordered?: Yes - Physical Exam General: Alert, Cooperative, - - No respiratory distress. No conversational dyspnea. HEENT: Atraumatic, Normocephalic Neck: No Nodes, Thyroid Normal Size and Texture Lungs: Clear to auscultation, Normal air movement, No rhonchi, No wheeze Cardiovascular: Regular rate, Regular Rhythm, Normal S1, Normal S2 Abdomen: Bowel Sounds Present, Soft, Non Tender, Non-Distended Extremities: No Calf Tenderness, Edema Skin: No rashes, No breakdown Musculoskeletal: No Tenderness to Palpation of Joints or Extremities, No Muscle Wasting Neurological: Neuro grossly intact, Sensory exam intact to light touch and pain Psych/Mental Status: Normal Affect, Appropriate Vital Signs Temp Pulse Resp BP Pulse Ox 36.7 C 69 16 160/78 H 96 08/02/17 16:25 08/02/17 16:25 08/02/17 16:25 08/02/17 16:25 08/02/17 16:25 Oxygen Delivery Method Room Air Weight: 99.881 kg Body Mass Index (BMI) 36.6 Intake and Output for Last 24 Hours 07/31/17 08/01/17 08/02/17 23:59 23:59 23:59 Intake Total 120 / 120 Balance 120 / 120 Laboratory Tests Past 24 Hrs 08/02/17 08/02/17 11:00 13:30 Troponin I < 0.015 < 0.015 POC Glucose 08/02/17 11:16 POC Glucose 176 H Chest x-ray reviewed and showed no acute process. Assessment/Plan Patient seen and examined independently. Data reviewed. I agree with the above note by the physician legislative assistant. 1. Suspected acute CHF exacerbation Echocardiogram pending Continue with IV Lasix for now Given the patient's symptoms would be concerned about right heart failure. Patient does endorse that her tells her she snores. 2. Hypertensive urgency Blood pressure was in the 200s systolic in the emergency room but has improved into the 160s for now. 3. Advanced care planning: Patient wishes to be full CODE STATUS at this time. Code Visit Inpatient E&M: [id number] Init Hosp L3
[2017-08-02] MEDS: Carvedilol 25 MG Tablet PO ×2 (12:17→21:18)
[2017-08-02] MEDS: Glimepiride 2 MG Tablet PO (12:17)
[2017-08-02] MEDS: Heparin Injection (Vial) 5,000 UNIT/ML VIAL 5000 UNIT SC ×2 (12:18→21:18)
[2017-08-02] MEDS: Aspirin E.C. 81 MG Tablet PO (12:18)
--- NOTE | 2017-08-02 12:18 | HP.PCM_ITS ---
<Greg Guerra - Last Filed: 08/02/17 12:08> Problem List (1) CHF (congestive heart failure) Status: Acute (2) GERD (gastroesophageal reflux disease) Status: Acute (3) Chronic kidney disease, stage 3 (moderate) Status: Chronic (4) HLD (hyperlipidemia) Status: Chronic (5) HTN (hypertension) Status: Chronic (6) Diabetes mellitus Status: Chronic History of Present Illness Date of Admission: 08/02/17 Chief Complaint: sob The patient is a 71 year old F with a hx of uncontrolled HTN, TIA, obesity, dmt2 , CKDIII, HLD, GERD, who presented to the ER with increased SOB for the last month most severely the last 2 days with increased wheezing and swelling of her legs. She is worse with light exertion, even walking across the room. She has a hx of HTN and nonspecific palpitations for which she sees Dr. Hui. She does not have a history of CHF. She has noticed increased weight gain of 15 pounds. She sleeps with the head of her bed raised and wakes up in the morning coughing , SOB, and wheezing. She has no hx of COPD/asthma/smoking. She has no fevers or chills. She has no difficulty emptying her bladder and has been urinating frequently since receiving lasix in the ER. She does have some midsternal chest pain that she associates with eating. She denies any recent changes to her cardiac medications. [] Past Medical History Past Medical History (Chronic Problems): Chronic Problems (Last Reviewed 07/10/17 @ 13:35 by Christal De Leon) Bilateral edema of lower extremity (Chronic) Shortness of breath (Chronic) GERD (gastroesophageal reflux disease) (Chronic) Uncontrolled hypertension (Chronic) Chronic kidney disease, stage 3 (moderate) (Chronic) HLD (hyperlipidemia) (Chronic) HTN (hypertension) (Chronic) Type 2 diabetes mellitus treated with insulin (Chronic) Controlled type 2 diabetes mellitus with insulin therapy (Chronic) Left carotid bruit (Chronic) HTN (hypertension), malignant (Chronic) 5 drug therapy Rheumatoid arthritis (Chronic) Diabetes mellitus (Chronic) History of diverticulosis (Chronic) History of esophageal reflux (Chronic) Simple obesity (Chronic) Psoriasis (Chronic) Systolic hypertension with cerebrovascular disease (Chronic) multiple lacunar strokes related to HTN left tongue deviation Renal artery atherosclerosis (Chronic) moderate 3 renal arteries on left, anatomical variation Medical History: Medical History (Last Reviewed 07/10/17 @ 13:35 by Christal De Leon) Uncontrolled hypertension (Chronic) I10 Chronic kidney disease, stage 3 (moderate) (Chronic) N18.3 HLD (hyperlipidemia) (Chronic) E78.5 HTN (hypertension) (Chronic) I10 Hx of mini strokes Chronic osteoarthritis M19.90 GERD (gastroesophageal reflux disease) K21.9 GERD (gastroesophageal reflux disease) K21.9 Hyperlipidemia E78.5 Hypertension I10 Neuropathy G62.9 kidney ds Allergies amlodipine Allergy (Verified 08/02/17 06:48) Unknown azithromycin [From Zithromax] Allergy (Verified 08/02/17 06:48) Unknown bumetanide Allergy (Verified 08/02/17 06:48) Unknown chlorthalidone Allergy (Verified 08/02/17 06:48) Unknown clonidine HCl [From Catapres] Allergy (Verified 08/02/17 06:48) Rash diltiazem Allergy (Verified 08/02/17 06:48) Unknown furosemide Allergy (Verified 08/02/17 06:48) Unknown gemfibrozil Allergy (Verified 08/02/17 06:48) Unknown hydralazine [Hydralazine] Allergy (Verified 08/02/17 06:48) Swelling losartan [Losartan] Allergy (Verified 08/02/17 06:48) Unknown minoxidil Allergy (Verified 08/02/17 06:48) Unknown nifedipine Allergy (Verified 08/02/17 06:48) Unknown simvastatin [From Zocor] Allergy (Verified 08/02/17 06:48) Unknown triamterene [From Dyazide] Allergy (Verified 08/02/17 06:48) Unknown valdecoxib [From Bextra] Allergy (Verified 08/02/17 06:48) Unknown verapamil [Verapamil] Allergy (Verified 08/02/17 06:48) Unknown atorvastatin Adverse Reaction (Unknown, Verified 08/02/17 10:56) Swelling and cramping of the legs clonidine [From Catapres] Adverse Reaction (Unknown, Verified 08/02/17 10:56) Unknown esomeprazole [From Nexium] Adverse Reaction (Unknown, Verified 08/02/17 10:56) Swelling metformin [From Glucophage] Adverse Reaction (Unknown, Verified 08/02/17 10:56) Other kidney fxn worsened rosuvastatin [From Crestor] Adverse Reaction (Unknown, Unverified 08/02/17 10:56 ) leg cramps/ swelling atorvastatin calcium [From Lipitor] Adverse Reaction (Verified 08/02/17 06:48) Leg cramps/aching celecoxib [From Celebrex] Adverse Reaction (Verified 08/02/17 06:48) Leg aching hydrochlorothiazide Adverse Reaction (Verified 08/02/17 06:48) Legs aching indapamide Adverse Reaction (Verified 08/02/17 06:48) Other insulin detemir [From Levemir] Adverse Reaction (Verified 08/02/17 06:48) Unknown lansoprazole [From Prevacid] Adverse Reaction (Verified 08/02/17 06:48) Legs aching metformin HCl [From Glucophage] Adverse Reaction (Verified 08/02/17 06:48) Diarrhea pravastatin Adverse Reaction (Verified 08/02/17 06:48) Legs aching rosuvastatin calcium [From Crestor] Adverse Reaction (Verified 08/02/17 06:48) Legs aching amiloride + hydrochlorothiazide Adverse Reaction (Unknown, Uncoded 08/02/17 06: 48) Unknown Home Medications: Ambulatory Orders Medication Instructions Recorded Carvedilol [Coreg] 25 mg PO BID 10/31/16 Hydroxychloroquine [Plaquenil] 200 mg PO BIDCM 10/31/16 traMADol [Ultram (G)] 50 mg PO Q4H PRN PRN 10/31/16 ascorbate calcium 500 mg capsule 500 mg PO QDAY 02/07/17 lisinopril 40 mg tablet 40 mg PO QDAY 02/07/17 aspirin 81 mg tablet,delayed 81 mg PO QDAY 02/13/17 release coenzyme Q10 100 mg capsule 100 mg PO QDAY 02/13/17 glucose 4 gram chewable tablet 4 g PO ONCE PRN #30 tab 02/13/17 doxazosin 2 mg tablet 2 mg PO QDAY #30 tab 03/06/17 insulin glargine (U-100) 100 50 unit SC QDAY ml 04/12/17 unit/mL (3 mL) subcutaneous pen omeprazole 20 mg capsule,delayed 20 mg PO BID cap 06/11/17 release amlodipine 10 mg tablet 10 mg PO DAILY tab 07/25/17 furosemide 20 mg tablet 20 mg PO QDAY tab 07/25/17 Glimepiride [Amaryl] 2 mg PO QDAY 08/02/17 Surgical History: Surgical History (Last Reviewed 07/10/17 @ 13:35 by Christal De Leon) History of appendectomy Z90.49 S/P breast lumpectomy Z98.890 benign gallbladder removed surgery on finger due to infection Surgical History: appendectomy, cholecystectomy Psychiatric History: 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psych hx [employer] History: 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 Lives: Spouse/ Significant Other Smoking Status: Never smoker Tobacco Use: Non-smoker Alcohol: None Drugs: None - *Family History Maternal Family History: Family History (Last Reviewed 07/10/17 @ 13:35 by Christal De Leon) Mother Diabetes Heart disease CVA (cerebral vascular accident) Myocardial infarction Father Cancer Brother Kidney disease Sister Diabetes Hypertension Mother Diabetes Heart disease CVA (cerebral vascular accident) Myocardial infarction Father Cancer Sister Hypertension Diabetes History Items: 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history Review of Systems Constitutional: Denies: Chills, Fever, Weight Change HEENT: Denies: Head Aches, Sinus Congestion, Sinus Drainage Cardiovascular: Reports: Chest Pressure, Edema. Denies: Chest Pain, Palpitations Respiratory: Reports: Cough, Shortness of Breath, Shortness of breath at rest, Shortness of breath upon exertion, Sputum production, Wheezing Gastrointestinal: Denies: Abdominal Pain, Nausea, Vomiting Genitourinary: Denies: Dysuria Musculoskeletal: Denies: Joint Pain, Joint Tenderness Skin: Denies: Rash, Wounds Neurological: Denies: Numbness, Tingling, Focal weakness Psychiatric: Denies: Anxiety, Depression, Homicidal Ideations, Suicidal Ideations Hematologic/ Lymphatic: Denies: Easy Bruising, Easy Bleeding VTE Information - Inpt Only VTE Present on Admission: No VTE Mechan Device Prophylaxis: None VTE Pharm Prophylaxis ordered?: Yes Patient Problems: Active and Suspected Problems (Last Reviewed 07/10/17 @ 13:35 by Christal De Leon ) CHF (congestive heart failure) (Acute) - Physical Exam General: Alert, Oriented x3, Cooperative HEENT: Atraumatic, PERRLA, EOMI, Normocephalic Neck: Supple, No JVD, Negative Carotid Bruits Lungs: Wheezes - faint end exp Cardiovascular: Regular rate, No murmurs Abdomen: Bowel Sounds Present, Soft, Non Tender Extremities: Capillary Refill Less than 3 Seconds, Edema - 2+ pitting edema BLE Skin: No rashes, No breakdown Musculoskeletal: No Tenderness to Palpation of Joints or Extremities Neurological: Cranial nerves II-XII grossly intact Psych/Mental Status: Normal Affect, Appropriate, Alert and oriented to time, place, person, mood and affect Vital Signs Temp Pulse Resp BP Pulse Ox 98.3 F 75 14 221/84 H 94 08/02/17 10:52 08/02/17 10:52 08/02/17 10:52 08/02/17 10:53 08/02/17 10:52 Oxygen Delivery Method Room Air Weight: 99.881 kg Body Mass Index (BMI) 36.6 Laboratory Tests Past 24 Hrs 08/02/17 11:00 Troponin I < 0.015 POC Glucose 08/02/17 11:16 POC Glucose 176 H Assessment/Plan All Active Problems (Last Reviewed 07/10/17 @ 13:35 by Christal De Leon) CHF (congestive heart failure) (Acute) 1. Acute CHF exacerbation - subtype unclear. Pt of Dr. Hui, no prior hx. Maintain on tele. Provide IV lasix. -cxr c/w CHF, elevated BNP -BL LE edema, 15 pound weight gain, + orthopnea -Obtain Echo -maintain on tele -trop neg x 2. -already on carlos, BB 2. HTN urgency - as evidenced by Systolic >200 in the presence of heart failure , DC hydralazine as she has allergy - swelling. Add IV lopressor. Numerous drug allergies to antihtn agents. 3. CKD III - trend. Pt of Dr. Aguilar 4. DMt2 with obesity - continue home insulin + SSI 5. Anemia - normocytic - trend. Stool occult blood neg. Suspect 2/2 chronic dz, CKD. 6. Hx of psoriasis - on plaquenil 7. HLD - statin allergic. 8. Hx TIA - on asa, statin intolerant, needs improved HTN control. DVT ppx: heparin DC planning: home when stable This patient was seen by Greg Guerra PA-C under the supervision of Doctor Tristian. <Bebeto Lubin - Last Filed: 08/02/17 16:36> Problem List (1) CHF (congestive heart failure) Status: Acute (2) GERD (gastroesophageal reflux disease) Status: Chronic Qualifiers: (3) Uncontrolled hypertension Status: Chronic (4) Chronic kidney disease, stage 3 (moderate) Status: Chronic (5) HLD (hyperlipidemia) Status: Chronic (6) HTN (hypertension) Status: Chronic Qualifiers: (7) Type 2 diabetes mellitus treated with insulin Status: Chronic (8) HTN (hypertension), malignant Status: Chronic Comment: 5 drug therapy (9) Rheumatoid arthritis Status: Chronic Qualifiers: Rheumatoid arthritis location: multiple sites Rheumatoid factor presence: unspecified presence Qualified Code(s): M06.9 - Rheumatoid arthritis, unspecified; M06.9 - Rheumatoid arthritis, unspecified; M06.9 - Rheumatoid arthritis, unspecified; M06.9 - Rheumatoid arthritis, unspecified (10) History of diverticulosis Status: Chronic (11) History of esophageal reflux Status: Chronic (12) Simple obesity Status: Chronic (13) Psoriasis Status: Chronic History of Present Illness The patient is a 71 year old F is with a long month long history of shortness of breath on exertion. In the emergency room patient had a BMP that was slightly elevated in the 200s chest x-ray is negative. Concern was for the patient's symptoms and was for heart failure. Patient herself denies any chest pain but did receive Lasix in the emergency room. [] Past Medical History Medical History: Medical History (Last Reviewed 08/02/17 @ 16:33 by Bebeto Lubin DO) Uncontrolled hypertension (Chronic) I10 Chronic kidney disease, stage 3 (moderate) (Chronic) N18.3 HLD (hyperlipidemia) (Chronic) E78.5 HTN (hypertension) (Chronic) I10 Hx of mini strokes Chronic osteoarthritis M19.90 GERD (gastroesophageal reflux disease) K21.9 GERD (gastroesophageal reflux disease) K21.9 Hyperlipidemia E78.5 Hypertension I10 Neuropathy G62.9 kidney ds Allergies amlodipine Allergy (Verified 08/02/17 06:48) Unknown azithromycin [From Zithromax] Allergy (Verified 08/02/17 06:48) Unknown bumetanide Allergy (Verified 08/02/17 06:48) Unknown chlorthalidone Allergy (Verified 08/02/17 06:48) Unknown clonidine HCl [From Catapres] Allergy (Verified 08/02/17 06:48) Rash diltiazem Allergy (Verified 08/02/17 06:48) Unknown furosemide Allergy (Verified 08/02/17 06:48) Unknown gemfibrozil Allergy (Verified 08/02/17 06:48) Unknown hydralazine [Hydralazine] Allergy (Verified 08/02/17 06:48) Swelling losartan [Losartan] Allergy (Verified 08/02/17 06:48) Unknown minoxidil Allergy (Verified 08/02/17 06:48) Unknown nifedipine Allergy (Verified 08/02/17 06:48) Unknown simvastatin [From Zocor] Allergy (Verified 08/02/17 06:48) Unknown triamterene [From Dyazide] Allergy (Verified 08/02/17 06:48) Unknown valdecoxib [From Bextra] Allergy (Verified 08/02/17 06:48) Unknown verapamil [Verapamil] Allergy (Verified 08/02/17 06:48) Unknown atorvastatin Adverse Reaction (Unknown, Verified 08/02/17 10:56) Swelling and cramping of the legs clonidine [From Catapres] Adverse Reaction (Unknown, Verified 08/02/17 10:56) Unknown esomeprazole [From Nexium] Adverse Reaction (Unknown, Verified 08/02/17 10:56) Swelling metformin [From Glucophage] Adverse Reaction (Unknown, Verified 08/02/17 10:56) Other kidney fxn worsened rosuvastatin [From Crestor] Adverse Reaction (Unknown, Verified 08/02/17 16:25) leg cramps/ swelling atorvastatin calcium [From Lipitor] Adverse Reaction (Verified 08/02/17 06:48) Leg cramps/aching celecoxib [From Celebrex] Adverse Reaction (Verified 08/02/17 06:48) Leg aching hydrochlorothiazide Adverse Reaction (Verified 08/02/17 06:48) Legs aching indapamide Adverse Reaction (Verified 08/02/17 06:48) Other insulin detemir [From Levemir] Adverse Reaction (Verified 08/02/17 06:48) Unknown lansoprazole [From Prevacid] Adverse Reaction (Verified 08/02/17 06:48) Legs aching metformin HCl [From Glucophage] Adverse Reaction (Verified 08/02/17 06:48) Diarrhea pravastatin Adverse Reaction (Verified 08/02/17 06:48) Legs aching rosuvastatin calcium [From Crestor] Adverse Reaction (Verified 08/02/17 06:48) Legs aching amiloride + hydrochlorothiazide Adverse Reaction (Unknown, Uncoded 08/02/17 06: 48) Unknown Surgical History: Surgical History (Last Reviewed 07/10/17 @ 13:35 by Christal De Leon) History of appendectomy Z90.49 S/P breast lumpectomy Z98.890 benign gallbladder removed surgery on finger due to infection Surgical History: appendectomy, cholecystectomy Psychiatric History: 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psych hx [employer] History: 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 Lives: Spouse/ Significant Other Smoking Status: Never smoker Tobacco Use: Non-smoker Alcohol: None Drugs: None - *Family History Maternal Family History: Family History (Last Reviewed 08/02/17 @ 16:33 by Bebeto Lubin DO) Mother Diabetes Heart disease CVA (cerebral vascular accident) Myocardial infarction Father Cancer Brother Kidney disease Sister Diabetes Hypertension Mother Diabetes Heart disease CVA (cerebral vascular accident) Myocardial infarction Father Cancer Sister Hypertension Diabetes Review of Systems Constitutional: Denies: Chills, Fever, Weight Change HEENT: Denies: Head Aches, Sinus Congestion, Sinus Drainage Cardiovascular: Reports: Chest Pressure, Edema. Denies: Chest Pain, Palpitations Respiratory: Reports: Cough, Shortness of Breath, Shortness of breath at rest, Shortness of breath upon exertion, Sputum production, Wheezing Gastrointestinal: Denies: Abdominal Pain, Nausea, Vomiting Genitourinary: Denies: Dysuria Musculoskeletal: Denies: Joint Pain, Joint Tenderness Skin: Denies: Rash, Wounds Neurological: Denies: Focal weakness, Numbness, Tingling Psychiatric: Denies: Anxiety, Depression, Homicidal Ideations, Suicidal Ideations Hematologic/ Lymphatic: Denies: Easy Bruising, Easy Bleeding VTE Information - Inpt Only VTE Present on Admission: No VTE Mechan Device Prophylaxis: None VTE Pharm Prophylaxis ordered?: Yes - Physical Exam General: Alert, Cooperative, - - No respiratory distress. No conversational dyspnea. HEENT: Atraumatic, Normocephalic Neck: No Nodes, Thyroid Normal Size and Texture Lungs: Clear to auscultation, Normal air movement, No rhonchi, No wheeze Cardiovascular: Regular rate, Regular Rhythm, Normal S1, Normal S2 Abdomen: Bowel Sounds Present, Soft, Non Tender, Non-Distended Extremities: No Calf Tenderness, Edema Skin: No rashes, No breakdown Musculoskeletal: No Tenderness to Palpation of Joints or Extremities, No Muscle Wasting Neurological: Neuro grossly intact, Sensory exam intact to light touch and pain Psych/Mental Status: Normal Affect, Appropriate Vital Signs Temp Pulse Resp BP Pulse Ox 36.7 C 69 16 160/78 H 96 08/02/17 16:25 08/02/17 16:25 08/02/17 16:25 08/02/17 16:25 08/02/17 16:25 Oxygen Delivery Method Room Air Weight: 99.881 kg Body Mass Index (BMI) 36.6 Intake and Output for Last 24 Hours 07/31/17 08/01/17 08/02/17 23:59 23:59 23:59 Intake Total 120 / 120 Balance 120 / 120 Laboratory Tests Past 24 Hrs 08/02/17 08/02/17 11:00 13:30 Troponin I < 0.015 < 0.015 POC Glucose 08/02/17 11:16 POC Glucose 176 H Chest x-ray reviewed and showed no acute process. Assessment/Plan Patient seen and examined independently. Data reviewed. I agree with the above note by the physician psychiatric technician assistant. 1. Suspected acute CHF exacerbation * Echocardiogram pending * Continue with IV Lasix for now * Given the patient's symptoms would be concerned about right heart failure. Patient does endorse that her tells her she snores. 2. Hypertensive urgency * Blood pressure was in the 200s systolic in the emergency room but has improved into the 160s for now. 3. Advanced care planning: Patient wishes to be full CODE STATUS at this time. Code Visit Inpatient E&M: 17822 Init Hosp L3
[2017-08-02] MEDS: amLODIPine 10 MG Tablet PO (12:19)
[2017-08-02] MEDS: Lisinopril 40 MG Tablet PO (12:19)
[2017-08-02] MEDS: Pantoprazole Sodium 20 MG Tablet PO ×2 (12:20→21:18)
[2017-08-02] MEDS: Doxazosin 1 MG Tablet 2 MG PO (12:20)
[2017-08-02] MEDS: Ascorbic Acid 500 MG Tablet PO (12:20)
--- NOTE | 2017-08-02 14:41 | CASEMGMT ---
RN CM Assessment Completed. DC PLAN: home. -Pt states is independent, no needs identified. Beverly YEPEZN RN ACM
[2017-08-02] MEDS: Metoprolol Tartrate 5 MG/5 ML Vial IV (15:31)
[2017-08-02] MEDS: Hydroxychloroquine 200 MG Tablet PO (17:07)
--- NOTE | 2017-08-02 17:12 | NURSING ---
checked pt blood sugar, reading of 50. gave pt 240 ml of orange juice, cookies and pt eating potato soup for dinner. will reassess
[2017-08-02 17:16] LABS: Bedside Glucose 50 mg/dL (70-110)
[2017-08-02 22:35] LABS: Bedside Glucose 90 mg/dL (70-110)
[2017-08-03] VITALS (16 sets, daily range): BP systolic 118–205; BP diastolic 52–81; PULSE 62–75; RESP 16–20; TEMP 36.6–37.1; O2SAT 95–99
[2017-08-03] MEDS: 0.9% NaCl Peripheral Flush Adult/Peds IV ×2 (00:16→07:24)
[2017-08-03] MEDS: Metoprolol Tartrate 5 MG/5 ML Vial IV ×3 (00:16→16:23)
[2017-08-03 06:44] LABS: Anion Gap 10 (5-15); BUN 34 mg/dL (7-18); BUN/Creat Ratio 17.5 RATIO (10-20); Calcium,Total 8.8 mg/dL (8.5-10.1); Chloride 116 mmol/L (98-107); Creatinine, Serum 1.94 mg/dL (0.55-1.02); EST Glomerular Filtration Rate 27 mL/min (>60); Est Glom Filt Rate - Afr Amer 33 mL/min (>60); Estimated Creatinine Clearance 24.28 ml/min; Glucose 65 mg/dL (74-106); Sodium Level 149 mmol/L (136-145)
[2017-08-03 07:00] LABS: Bedside Glucose 85 mg/dL (70-110)
[2017-08-03] MEDS: Glimepiride 2 MG Tablet PO (08:15)
[2017-08-03] MEDS: Aspirin E.C. 81 MG Tablet PO (08:15)
[2017-08-03] MEDS: Hydroxychloroquine 200 MG Tablet PO ×2 (08:16→16:28)
[2017-08-03] MEDS: Doxazosin 1 MG Tablet 2 MG PO ×2 (08:16→11:16)
[2017-08-03] MEDS: Heparin Injection (Vial) 5,000 UNIT/ML VIAL 5000 UNIT SC ×2 (08:16→21:15)
[2017-08-03] MEDS: Carvedilol 25 MG Tablet PO ×2 (08:16→21:15)
[2017-08-03] MEDS: Furosemide 40 MG/4 ML Vial IV (08:17)
[2017-08-03] MEDS: amLODIPine 10 MG Tablet PO (08:17)
[2017-08-03] MEDS: Pantoprazole Sodium 20 MG Tablet PO ×2 (08:17→21:15)
[2017-08-03] MEDS: Lisinopril 40 MG Tablet PO (08:18)
[2017-08-03] MEDS: Ascorbic Acid 500 MG Tablet PO (08:18)
[2017-08-03 11:26] LABS: Bedside Glucose 144 mg/dL (70-110)
--- NOTE | 2017-08-03 15:21 | PCM.PROGNOTE ---
<Greg Guerra - Last Filed: 08/03/17 15:21> Patient Problems: Active and Suspected Problems (Last Reviewed 08/02/17 @ 16:33 by Bebeto Lubin DO) CHF (congestive heart failure) (Acute) Subjective: No shortness of breath, edema is drastically improved overnight. No chest pain, dizziness, lightheadedness, palpitations. No headache. No blurry vision. Blood pressure remains significantly elevated. Patient has had no reaction to Lasix despite listed allergy. - Physical Exam General: Alert, Oriented x3, Cooperative HEENT: Atraumatic, PERRLA, EOMI, Normocephalic Neck: Supple, No JVD, Negative Carotid Bruits Lungs: Clear to auscultation, Normal air movement Cardiovascular: Regular rate, No murmurs Abdomen: Bowel Sounds Present, Soft, Non Tender Extremities: No edema, Capillary Refill Less than 3 Seconds Skin: No rashes, No breakdown Musculoskeletal: No Tenderness to Palpation of Joints or Extremities Neurological: Cranial nerves II-XII grossly intact Psych/Mental Status: Normal Affect, Appropriate, Alert and oriented to time, place, person, mood and affect Vital Signs Temp Pulse Resp BP Pulse Ox 98.1 F 66 18 144/81 H 96 08/03/17 11:17 08/03/17 11:17 08/03/17 11:17 08/03/17 11:17 08/03/17 11:17 Oxygen Delivery Method Room Air Weight: 98.1 kg Body Mass Index (BMI) 36.6 Intake and Output for Last 24 Hours 08/01/17 08/02/17 08/03/17 23:59 23:59 23:59 Intake Total 780 / 780 60 / 60 Output Total 1480 / 1480 210 / 210 Balance -700 / -700 -150 / -150 Laboratory Tests Past 24 Hrs 08/03/17 06:15 Sodium 149 H Potassium 4.0 Chloride 116 H Carbon Dioxide 23.0 Anion Gap 10 BUN 34 H Creatinine 1.94 H Estim Creat Clear Calc 24.28 Est GFR (MDRD) Af Amer 33 L Est GFR (MDRD) Non-Af 27 L BUN/Creatinine Ratio 17.5 Glucose 65 L Calcium 8.8 POC Glucose 08/03/17 08/03/17 08/02/17 11:14 06:51 21:17 POC Glucose 144 H 85 90 08/02/17 17:02 POC Glucose 50 L Medical Necessity - Tobacco Use Smoking Status: Never smoker Tobacco Use: Non-smoker Assessment/Plan All Active Problems (Last Reviewed 08/02/17 @ 16:33 by Bebeto Lubin DO) CHF (congestive heart failure) (Acute) 1. Acute CHF exacerbation -significantly improved, will transition to p.o. Lasix. Creatinine has increased, will recheck BMP in the morning. 2. HTN urgency - as evidenced by Systolic >200 in the presence of heart failure. -Increased Cardura, seems to have improved since the additional dose this morning. -As needed Lopressor -If remains uncontrolled will need to trial other agents that have questionable allergic reactions 3. CKD III - trend. Pt of Dr. Aguilar 4. DMt2 with obesity - continue home insulin + SSI 5. Anemia - normocytic -chronic. 6. Hx of psoriasis - on plaquenil 7. HLD - statin allergic. 8. Hx TIA - on asa, statin intolerant, needs improved HTN control. DVT ppx: heparin DC planning: home when stable, probably tomorrow This patient was seen by Greg Guerra PA-C under the supervision of Doctor Tristian. <Bebeto Lubin - Last Filed: 08/03/17 15:41> Subjective: Better. Less dyspnea on exertion. Decreased edema in the lower extremities. - Physical Exam General: Alert HEENT: Atraumatic, Normocephalic Neck: No JVD Lungs: Clear to auscultation, Normal air movement, No rhonchi, No wheeze Abdomen: Bowel Sounds Present, Soft, Non Tender, Non-Distended Extremities: No Calf Tenderness Skin: No rashes, No breakdown Psych/Mental Status: Normal Affect, Appropriate Vital Signs Temp Pulse Resp BP Pulse Ox 36.7 C 66 18 144/81 H 96 08/03/17 11:17 08/03/17 11:17 08/03/17 11:17 08/03/17 11:17 08/03/17 11:17 Oxygen Delivery Method Room Air Weight: 98.1 kg Body Mass Index (BMI) 36.6 Intake and Output for Last 24 Hours 08/01/17 08/02/17 08/03/17 23:59 23:59 23:59 Intake Total 780 / 780 60 / 60 Output Total 1480 / 1480 210 / 210 Balance -700 / -700 -150 / -150 Laboratory Tests Past 24 Hrs 08/03/17 06:15 Sodium 149 H Potassium 4.0 Chloride 116 H Carbon Dioxide 23.0 Anion Gap 10 BUN 34 H Creatinine 1.94 H Estim Creat Clear Calc 24.28 Est GFR (MDRD) Af Amer 33 L Est GFR (MDRD) Non-Af 27 L BUN/Creatinine Ratio 17.5 Glucose 65 L Calcium 8.8 POC Glucose 08/03/17 08/03/17 08/02/17 11:14 06:51 21:17 POC Glucose 144 H 85 90 08/02/17 17:02 POC Glucose 50 L Assessment/Plan Patient seen and examined independently. Data reviewed. I agree with the above note by the physician senior care assistant. 1. Acute CHF exacerbation Overall improved. Lasix transitioned over to oral. Continue to monitor for now. 2. Hypertensive urgency Still with systolic blood pressure in the 200s at times but overall improved. Continue to monitor while she is here in the hospital. I would be concerned the patient may have some flash pulmonary edema due to her poorly controlled blood pressure but will monitor. Code Visit Inpatient E&M: 30820 Subs Hosp L2
--- NOTE | 2017-08-03 15:25 | PN_ITS ---
<Greg Guerra - Last Filed: 08/03/17 15:21> Patient Problems: Active and Suspected Problems (Last Reviewed 08/02/17 @ 16:33 by Bebeto Lubin DO) CHF (congestive heart failure) (Acute) Subjective: No shortness of breath, edema is drastically improved overnight. No chest pain , dizziness, lightheadedness, palpitations. No headache. No blurry vision. Blood pressure remains significantly elevated. Patient has had no reaction to Lasix despite listed allergy. - Physical Exam General: Alert, Oriented x3, Cooperative HEENT: Atraumatic, PERRLA, EOMI, Normocephalic Neck: Supple, No JVD, Negative Carotid Bruits Lungs: Clear to auscultation, Normal air movement Cardiovascular: Regular rate, No murmurs Abdomen: Bowel Sounds Present, Soft, Non Tender Extremities: No edema, Capillary Refill Less than 3 Seconds Skin: No rashes, No breakdown Musculoskeletal: No Tenderness to Palpation of Joints or Extremities Neurological: Cranial nerves II-XII grossly intact Psych/Mental Status: Normal Affect, Appropriate, Alert and oriented to time, place, person, mood and affect Vital Signs Temp Pulse Resp BP Pulse Ox 98.1 F 66 18 144/81 H 96 08/03/17 11:17 08/03/17 11:17 08/03/17 11:17 08/03/17 11:17 08/03/17 11:17 Oxygen Delivery Method Room Air Weight: 98.1 kg Body Mass Index (BMI) 36.6 Intake and Output for Last 24 Hours 08/01/17 08/02/17 08/03/17 23:59 23:59 23:59 Intake Total 780 / 780 60 / 60 Output Total 1480 / 1480 210 / 210 Balance -700 / -700 -150 / -150 Laboratory Tests Past 24 Hrs 08/03/17 06:15 Sodium 149 H Potassium 4.0 Chloride 116 H Carbon Dioxide 23.0 Anion Gap 10 BUN 34 H Creatinine 1.94 H Estim Creat Clear Calc 24.28 Est GFR (MDRD) Af Amer 33 L Est GFR (MDRD) Non-Af 27 L BUN/Creatinine Ratio 17.5 Glucose 65 L Calcium 8.8 POC Glucose 08/03/17 08/03/17 08/02/17 11:14 06:51 21:17 POC Glucose 144 H 85 90 08/02/17 17:02 POC Glucose 50 L Medical Necessity - Tobacco Use Smoking Status: Never smoker Tobacco Use: Non-smoker Assessment/Plan All Active Problems (Last Reviewed 08/02/17 @ 16:33 by Bebeto Lubin DO) CHF (congestive heart failure) (Acute) 1. Acute CHF exacerbation -significantly improved, will transition to p.o. Lasix. Creatinine has increased, will recheck BMP in the morning. 2. HTN urgency - as evidenced by Systolic >200 in the presence of heart failure. -Increased Cardura, seems to have improved since the additional dose this morning. -As needed Lopressor -If remains uncontrolled will need to trial other agents that have questionable allergic reactions 3. CKD III - trend. Pt of Dr. Aguilar 4. DMt2 with obesity - continue home insulin + SSI 5. Anemia - normocytic -chronic. 6. Hx of psoriasis - on plaquenil 7. HLD - statin allergic. 8. Hx TIA - on asa, statin intolerant, needs improved HTN control. DVT ppx: heparin DC planning: home when stable, probably tomorrow This patient was seen by Greg Guerra PA-C under the supervision of Doctor Tristian. <Bebeto Lubin - Last Filed: 08/03/17 15:41> Subjective: Better. Less dyspnea on exertion. Decreased edema in the lower extremities. - Physical Exam General: Alert HEENT: Atraumatic, Normocephalic Neck: No JVD Lungs: Clear to auscultation, Normal air movement, No rhonchi, No wheeze Abdomen: Bowel Sounds Present, Soft, Non Tender, Non-Distended Extremities: No Calf Tenderness Skin: No rashes, No breakdown Psych/Mental Status: Normal Affect, Appropriate Vital Signs Temp Pulse Resp BP Pulse Ox 36.7 C 66 18 144/81 H 96 08/03/17 11:17 08/03/17 11:17 08/03/17 11:17 08/03/17 11:17 08/03/17 11:17 Oxygen Delivery Method Room Air Weight: 98.1 kg Body Mass Index (BMI) 36.6 Intake and Output for Last 24 Hours 08/01/17 08/02/17 08/03/17 23:59 23:59 23:59 Intake Total 780 / 780 60 / 60 Output Total 1480 / 1480 210 / 210 Balance -700 / -700 -150 / -150 Laboratory Tests Past 24 Hrs 08/03/17 06:15 Sodium 149 H Potassium 4.0 Chloride 116 H Carbon Dioxide 23.0 Anion Gap 10 BUN 34 H Creatinine 1.94 H Estim Creat Clear Calc 24.28 Est GFR (MDRD) Af Amer 33 L Est GFR (MDRD) Non-Af 27 L BUN/Creatinine Ratio 17.5 Glucose 65 L Calcium 8.8 POC Glucose 08/03/17 08/03/17 08/02/17 11:14 06:51 21:17 POC Glucose 144 H 85 90 08/02/17 17:02 POC Glucose 50 L Assessment/Plan Patient seen and examined independently. Data reviewed. I agree with the above note by the physician printing assistant. 1. Acute CHF exacerbation * Overall improved. Lasix transitioned over to oral. Continue to monitor for now. 2. Hypertensive urgency * Still with systolic blood pressure in the 200s at times but overall improved. Continue to monitor while she is here in the hospital. I would be concerned the patient may have some flash pulmonary edema due to her poorly controlled blood pressure but will monitor. Code Visit Inpatient E&M: 78222 Subs Hosp L2
[2017-08-03 16:20] LABS: Bedside Glucose 41 mg/dL (70-110)
[2017-08-03 16:35] LABS: Bedside Glucose 65 mg/dL (70-110)
[2017-08-03 17:05] LABS: Bedside Glucose 109 mg/dL (70-110)
[2017-08-03 21:25] LABS: Bedside Glucose 84 mg/dL (70-110)
[2017-08-04] VITALS (9 sets, daily range): BP systolic 151–169; BP diastolic 68–83; PULSE 63–71; RESP 16–18; TEMP 36.7–37.2; O2SAT 96–98
[2017-08-04] MEDS: Metoprolol Tartrate 5 MG/5 ML Vial IV (04:22)
[2017-08-04 04:26] LABS: Bedside Glucose 53 mg/dL (70-110)
[2017-08-04 05:41] LABS: Bedside Glucose 112 mg/dL (70-110)
[2017-08-04 06:22] LABS: Anion Gap 10 (5-15); BUN 37 mg/dL (7-18); BUN/Creat Ratio 18.3 RATIO (10-20); Calcium,Total 8.3 mg/dL (8.5-10.1); Chloride 113 mmol/L (98-107); Creatinine, Serum 2.02 mg/dL (0.55-1.02); EST Glomerular Filtration Rate 26 mL/min (>60); Est Glom Filt Rate - Afr Amer 31 mL/min (>60); Estimated Creatinine Clearance 23.32 ml/min; Glucose 117 mg/dL (74-106); Potassium 3.7 mmol/L (3.5-5.1); Sodium Level 147 mmol/L (136-145)
[2017-08-04 07:11] LABS: Bedside Glucose 98 mg/dL (70-110)
[2017-08-04] MEDS: Glimepiride 2 MG Tablet PO (07:59)
[2017-08-04] MEDS: Aspirin E.C. 81 MG Tablet PO (07:59)
[2017-08-04] MEDS: Hydroxychloroquine 200 MG Tablet PO (07:59)
[2017-08-04] MEDS: Pantoprazole Sodium 20 MG Tablet PO (09:28)
[2017-08-04] MEDS: Carvedilol 25 MG Tablet PO (09:28)
[2017-08-04] MEDS: Lisinopril 40 MG Tablet PO (09:29)
[2017-08-04] MEDS: amLODIPine 10 MG Tablet PO (09:29)
[2017-08-04] MEDS: Ascorbic Acid 500 MG Tablet PO (09:29)
[2017-08-04] MEDS: Doxazosin 4 MG Tablet PO (09:33)
[2017-08-04] MEDS: Heparin Injection (Vial) 5,000 UNIT/ML VIAL 5000 UNIT SC (09:33)
[2017-08-04] MEDS: Furosemide 40 MG Tablet PO (09:33)
[2017-08-04 11:15] LABS: Bedside Glucose 202 mg/dL (70-110)
--- NOTE | 2017-08-04 11:45 | DCINST_ITS ---
- Discharge Diagnoses Current Active Problems: Current Active and Chronic Problems (Last Reviewed 08/02/17 @ 16:33 by Bebeto Lubin DO) CHF (congestive heart failure) (Acute) You will use the following diet at home:: Calorie/Carbohydrate Controlled ( specify 1200, 1400, etc) - 1800 ivjay / day, Cardiac - <2 g sodium daily Your food should be the consistency of: Regular Your liquids should be the consistency of: Regular/Thin Discharge Activity: Return to Normal Activity Additional Instructions: LATHA wrap or compression socks for edema. Check weight daily in the morning upon waking, and record them in a log. Allergies/Adverse Reactions: Allergies azithromycin [From Zithromax] Allergy (Verified 08/02/17 06:48) Unknown bumetanide Allergy (Verified 08/02/17 06:48) Unknown chlorthalidone Allergy (Verified 08/02/17 06:48) Unknown clonidine HCl [From Catapres] Allergy (Verified 08/02/17 06:48) Rash diltiazem Allergy (Verified 08/02/17 06:48) Unknown gemfibrozil Allergy (Verified 08/02/17 06:48) Unknown hydralazine [Hydralazine] Allergy (Verified 08/02/17 06:48) Swelling losartan [Losartan] Allergy (Verified 08/02/17 06:48) Unknown minoxidil Allergy (Verified 08/02/17 06:48) Unknown nifedipine Allergy (Verified 08/02/17 06:48) Unknown simvastatin [From Zocor] Allergy (Verified 08/02/17 06:48) Unknown triamterene [From Dyazide] Allergy (Verified 08/02/17 06:48) Unknown valdecoxib [From Bextra] Allergy (Verified 08/02/17 06:48) Unknown verapamil [Verapamil] Allergy (Verified 08/02/17 06:48) Unknown atorvastatin Adverse Reaction (Unknown, Verified 08/02/17 10:56) Swelling and cramping of the legs clonidine [From Catapres] Adverse Reaction (Unknown, Verified 08/02/17 10:56) Unknown esomeprazole [From Nexium] Adverse Reaction (Unknown, Verified 08/02/17 10:56) Swelling metformin [From Glucophage] Adverse Reaction (Unknown, Verified 08/02/17 10:56) Other kidney fxn worsened rosuvastatin [From Crestor] Adverse Reaction (Unknown, Verified 08/02/17 16:25) leg cramps/ swelling atorvastatin calcium [From Lipitor] Adverse Reaction (Verified 08/02/17 06:48) Leg cramps/aching celecoxib [From Celebrex] Adverse Reaction (Verified 08/02/17 06:48) Leg aching hydrochlorothiazide Adverse Reaction (Verified 08/02/17 06:48) Legs aching indapamide Adverse Reaction (Verified 08/02/17 06:48) Other insulin detemir [From Levemir] Adverse Reaction (Verified 08/02/17 06:48) Unknown lansoprazole [From Prevacid] Adverse Reaction (Verified 08/02/17 06:48) Legs aching metformin HCl [From Glucophage] Adverse Reaction (Verified 08/02/17 06:48) Diarrhea pravastatin Adverse Reaction (Verified 08/02/17 06:48) Legs aching rosuvastatin calcium [From Crestor] Adverse Reaction (Verified 08/02/17 06:48) Legs aching amiloride + hydrochlorothiazide Adverse Reaction (Unknown, Uncoded 08/02/17 06: 48) Unknown Medications to take at Discharge Carvedilol [Coreg] 25 mg PO BID 10/31/16 Hydroxychloroquine [Plaquenil] 200 mg PO BIDCM 10/31/16 traMADol [Ultram] 50 mg PO Q4H PRN PRN 10/31/16 ascorbate calcium 500 mg capsule 500 mg PO QDAY 02/07/17 lisinopril 40 mg tablet 40 mg PO QDAY 02/07/17 aspirin 81 mg tablet,delayed release 81 mg PO QDAY 02/13/17 coenzyme Q10 100 mg capsule 100 mg PO QDAY 02/13/17 glucose 4 gram chewable tablet 4 g PO ONCE PRN #30 tab 02/13/17 omeprazole 20 mg capsule,delayed release 20 mg PO BID cap 06/11/17 amlodipine 10 mg tablet 10 mg PO DAILY tab 07/25/17 Glimepiride [Amaryl] 2 mg PO QDAY 08/02/17 Doxazosin Mesylate [Cardura] 4 mg PO DAILY #30 tab 08/04/17 Furosemide [Lasix] 40 mg PO DAILY #30 tab 08/04/17 Insulin Glargine [Lantus SoloStar Pen] 35 units SC DAILY pen 08/04/17 The following prescriptions were given: Doxazosin Mesylate [Cardura] 4 mg PO DAILY #30 tab Furosemide [Lasix] 40 mg PO DAILY #30 tab Primary Care Physician: Hamzah Wallis MD [Primary Care Provider] - Please follow up with your Primary Care Physician in: 2 weeks Please Follow Up With: Clifford Hui MD When: Keep current appointment Please Follow Up With: Ivanna Aguilar DO When: 1-2 weeks Proposed Discharge Date: 08/04/17
--- NOTE | 2017-08-04 13:52 | DS.PCM_ITS ---
<Greg Guerra - Last Filed: 08/04/17 13:41> Discharge Date and Diagnosis Date of Admission: 08/02/17 Date of Discharge: 08/04/17 - Primary Discharge Diagnosis Acute Diastolic CHF HTN urgency Moderate pulmonary htn CKD III DMt2 with hypoglycemia Chronic normocytic anemia, suspect 2/2 chronic dz HLD Hx TIA - Secondary Discharge Diagnosis Chronic Problems (Last Reviewed 08/02/17 @ 16:33 by Bebeto Lubin DO) Bilateral edema of lower extremity (Chronic) Shortness of breath (Chronic) GERD (gastroesophageal reflux disease) (Chronic) Uncontrolled hypertension (Chronic) Chronic kidney disease, stage 3 (moderate) (Chronic) HLD (hyperlipidemia) (Chronic) HTN (hypertension) (Chronic) Type 2 diabetes mellitus treated with insulin (Chronic) Controlled type 2 diabetes mellitus with insulin therapy (Chronic) Left carotid bruit (Chronic) HTN (hypertension), malignant (Chronic) 5 drug therapy Rheumatoid arthritis (Chronic) Diabetes mellitus (Chronic) History of diverticulosis (Chronic) History of esophageal reflux (Chronic) Simple obesity (Chronic) Psoriasis (Chronic) Systolic hypertension with cerebrovascular disease (Chronic) multiple lacunar strokes related to HTN left tongue deviation Renal artery atherosclerosis (Chronic) moderate 3 renal arteries on left, anatomical variation Hospital Course and Treatment Imaging Results: Echo: Interpretation Summary Moderate concentric left ventricular hypertrophy. The estimated ejection fraction is 65 %. Stage 2 diastolic dysfunction. The left atrium is moderately enlarged. Trivial mitral valve insufficiency. Trivial tricuspid valve insufficiency. Right ventricular systolic pressure estimated to be 51 mmHg. Moderate pulmonary hypertension. Compared to echo report dated 02/19/2013, LV function has remained the same, but RVSP has increased from 30 to 51 mm Hg. RAD/Chest PA and Lateral IMPRESSION: CHF with right lower lung infiltrate or edema. Small pleural effusion. Operations: None Procedures: 2-D Echocardiogram Summary of Care Provided: Physical exam on day of discharge: General: Resting comfortably NAD Psych: A/Ox3 normal affect HEENT: PEARRLA AT NC Neck: Supple NT CV: RRR no m/t/r/g/h Resp: CTA Abd: [id number] Soft NT no guarding or rigidity Ext: DP2+= no edema Skin: W/D normal turgor Lymph/Heme: No active bleeding or adenopathy Neuro: CN2-12 intact Hospital course: The patient is a 71 year old F with a hx of uncontrolled HTN - pt of Dr. Hui, CKD III - pt of Dr. Aguilar, HLD, DMt2, prior TIA, GERD, who presented to the ER with increased SOB for about a month severely worsening the 2 days prior to admission, with increased wheezing and swelling of her BLE. She had also noted 15 pound weight gain as well. She had an elevated BNP, CXR c/w CHF, and edema c/ w CHF. BP was poorly controlled in the 200s systolic and she had numerous medication allergies to antihypertensives. She was admitted to PCU and started on IV lasix. She responded very well to this with dramatic improvement in her edema and SOB. She underwent an echo which showed preserved EF at 65% with grade 2 diastolic dyfxn, modereately enlarged Left atrium, moderate LVH, moderate pulmonary HTN with RVSP 51 mmHg. She continued to have severely elevated BP, but it did respond to increasing her cardura dose. Her edema and SOB were resolved, so she was discharged home in stable condition. Her creatinine had somewhat bumped, so we advised her to follow up with nephrology. She has an appointment with her senior compliance analyst Dr. Hui next week and we advised her to keep this and have a BMP in 3 days. She should also follow up with her PCP. I did also advise her to start checking daily weights and keeping a log, and that she should call her physician if she experiences a 5 pound weight gain in 24 hours, and that she needs to restrict her sodium in her diet with a goal of less than 2 g per day. This patient was seen by Greg Guerra PA-C under the supervision of Doctor Tristian. [] Discharge Diet: Low fat/ Low Cholesterol, 1800 Calorie Control Diet, 2000 mg Sodium Diet Discharge Activity: Return to Normal Activity Home Medications: Medications to take at Discharge Carvedilol [Coreg] 25 mg PO BID 10/31/16 Hydroxychloroquine [Plaquenil] 200 mg PO BIDCM 10/31/16 traMADol [Ultram] 50 mg PO Q4H PRN PRN 10/31/16 ascorbate calcium 500 mg capsule 500 mg PO QDAY 02/07/17 lisinopril 40 mg tablet 40 mg PO QDAY 02/07/17 aspirin 81 mg tablet,delayed release 81 mg PO QDAY 02/13/17 coenzyme Q10 100 mg capsule 100 mg PO QDAY 02/13/17 glucose 4 gram chewable tablet 4 g PO ONCE PRN #30 tab 02/13/17 omeprazole 20 mg capsule,delayed release 20 mg PO BID cap 06/11/17 amlodipine 10 mg tablet 10 mg PO DAILY tab 07/25/17 Glimepiride [Amaryl] 2 mg PO QDAY 08/02/17 Doxazosin Mesylate [Cardura] 4 mg PO DAILY #30 tab 08/04/17 Furosemide [Lasix] 40 mg PO DAILY #30 tab 08/04/17 Insulin Glargine [Lantus SoloStar Pen] 35 units SC DAILY pen 08/04/17 Following Prescrptions Were Given to Patient: Doxazosin Mesylate [Cardura] 4 mg PO DAILY #30 tab Furosemide [Lasix] 40 mg PO DAILY #30 tab Primary Care Physician: Hamzah Wallis MD [Primary Care Provider] - Please follow up with your Primary Care Physician in: 2 weeks Please Follow Up With: Clifford Hui MD When: Keep current appointment Please Follow Up With: Ivanna Aguilar DO When: 1-2 weeks Additional Instructions: Daily weights, sodium restriction, Dameon wraps or compression socks for edema Disposition: Home Minutes spent on discharge:: 35 Patient Condition:: Stable Medical Necessity - Tobacco Use Smoking Status: Never smoker Tobacco Use: Non-smoker Meaningful Use Info Meaningful Use Diagnoses (Choose all that apply): CHF - CHF DAMEON/ARB ordered at discharge?: Yes Documented LVEF (%): 65 <Bebeto Lubin - Last Filed: 08/04/17 14:26> Discharge Date and Diagnosis - Secondary Discharge Diagnosis Chronic Problems (Last Reviewed 08/02/17 @ 16:33 by Bebeto Lubin DO) Bilateral edema of lower extremity (Chronic) Shortness of breath (Chronic) GERD (gastroesophageal reflux disease) (Chronic) Uncontrolled hypertension (Chronic) Chronic kidney disease, stage 3 (moderate) (Chronic) HLD (hyperlipidemia) (Chronic) HTN (hypertension) (Chronic) Type 2 diabetes mellitus treated with insulin (Chronic) Controlled type 2 diabetes mellitus with insulin therapy (Chronic) Left carotid bruit (Chronic) HTN (hypertension), malignant (Chronic) 5 drug therapy Rheumatoid arthritis (Chronic) Diabetes mellitus (Chronic) History of diverticulosis (Chronic) History of esophageal reflux (Chronic) Simple obesity (Chronic) Psoriasis (Chronic) Systolic hypertension with cerebrovascular disease (Chronic) multiple lacunar strokes related to HTN left tongue deviation Renal artery atherosclerosis (Chronic) moderate 3 renal arteries on left, anatomical variation Hospital Course and Treatment Operations: None Procedures: 2-D Echocardiogram Summary of Care Provided: Patient seen and examined independently. Data reviewed. I agree with the above note by the physician family medicine physician assistant. The patient is a 71 year old F presents with shortness of breath. Chest x-ray showed some subtle edema and BNP was slightly elevated at 282. Patient was started on IV Lasix. Additionally, patient was noted to be in hypertensive urgency with systolic over the 200s. Patient diuresed well with the IV Lasix but I did have to be changed over to oral as her creatinine went from 1.84-1.94 and today is 2.02. Patient will continue with the Lasix. Patient is also on other medications for blood pressure which for the most part are at their maximum allowable limits. Patient continue with Lasix and hopefully that will help with her blood pressure. Patient's recent blood pressure was 151/82. Patient does have chronic kidney disease stage III-IV. Patient is scheduled to see Dr. Aguilar in the coming months. Patient will be following up with Dr. Hui next week. [] Discharge Diet: Low fat/ Low Cholesterol, 1800 Calorie Control Diet, 2000 mg Sodium Diet Discharge Activity: Return to Normal Activity Disposition: Home Patient Condition:: Stable Meaningful Use Info Meaningful Use Diagnoses (Choose all that apply): CHF - CHF DAMEON/ARB ordered at discharge?: Yes Documented LVEF (%): 65 Code Visit Inpatient E&M: 79403 Disch Hosp
== END 2017-08-04 13:24 | disposition home or self-care (01) | DRG 291 ==
LOC: ED 06:43 → PCU 09:59
PROVIDERS: Physician Assistant; Emergency Provider Emergency Medicine; Family Provider Internal Medicine; PCP Internal Medicine
DX: I13.0 Hypertensive heart and chronic kidney disease with heart failure and stage 1 through stage 4 chronic kidney disease, or unspecified chronic kidney disease (principal); I50.31 Acute diastolic (congestive) heart failure; N18.3 Chronic kidney disease, stage 3 (moderate); E11.22 Type 2 diabetes mellitus with diabetic chronic kidney disease; E78.5 Hyperlipidemia, unspecified; E66.9 Obesity, unspecified; Z68.36 Body mass index [BMI] 36.0-36.9, adult; L40.9 Psoriasis, unspecified; Z79.899 Other long term (current) drug therapy; Z86.73 Personal history of transient ischemic attack (TIA), and cerebral infarction without residual deficits; I16.0 Hypertensive urgency; I27.20 Pulmonary hypertension, unspecified; D63.8 Anemia in other chronic diseases classified elsewhere; E11.649 Type 2 diabetes mellitus with hypoglycemia without coma; K21.9 Gastro-esophageal reflux disease without esophagitis; Z79.4 Long term (current) use of insulin; M06.9 Rheumatoid arthritis, unspecified
CPT/HCPCS: 36415; 71046; 80048; 82274; 82962; 83880; 84484; 85025; 85610; 85730; 93005; 93306; 94640; 99285; Q9957; A4216; J1940

== ENCOUNTER → 2017-08-07 08:37 | Outpatient (CLI) | payer MEDICARE, SELFPAY ==
--- NOTE | 2017-08-07 08:37 | DT_ITS ---
This patient was seen during an EMR downtime August 05, 2017 - August 12, 2017. This patient may have a combination of paper and electronic documentation or all paper documentation. All documentation is viewable within the e-chart portion of [employer] for each patient visit.
[2017-08-12 15:35] LABS: Anion Gap 10 (5-15); BUN 39 mg/dL (7-18); BUN/Creat Ratio 18.8 RATIO (10-20); Calcium,Total 8.7 mg/dL (8.5-10.1); Chloride 113 mmol/L (98-107); Creatinine, Serum 2.07 mg/dL (0.55-1.02); EST Glomerular Filtration Rate 25 mL/min (>60); Est Glom Filt Rate - Afr Amer 30 mL/min (>60); Glucose 159 mg/dL (74-106); Potassium 4.7 mmol/L (3.5-5.1); Sodium Level 144 mmol/L (136-145)
== END ==
PROVIDERS: Family Provider Internal Medicine; PCP Internal Medicine; Visit Provider Physician Assistant
DX: I50.9 Heart failure, unspecified (principal); Z79.899 Other long term (current) drug therapy
CPT/HCPCS: 36415; 80048

== ENCOUNTER → 2017-09-24 14:52 | Outpatient (CLI) | payer MEDICARE, SELFPAY ==
[2017-09-24 18:03] LABS: Absolute Lymphocyte Count 1.46 X10^3/ul (0.83-4.51); Absolute Neutrophil Count 5.8 X10^3/uL (2.0-7.7); Basophil# 0.02 X10^3/uL; Basophil% 0.2 % (0-1); Eosinophil# 0.55 X10^3/uL; Eosinophils% 6.4 % (0-5); Hematocrit 31.9 % (37-47); Hemoglobin 10.7 g/dl (12.0-15.0); Lymphocyte # 1.46 X10^3/ul (4.0); Lymphocyte % 16.9 % (19-41); Mean Corp Hgb Conc 33.5 g/gl (32-36); Mean Corpuscular Hgb 29.4 pg (27.0-32.0); Mean Corpuscular Volume 87.6 fL (81-99); Mean Platelet Vol. 10.7 fl (6.2-12.0); Monocyte# 0.77 X10^3/uL; Monocyte% 8.9 % (0-10); Neutrophil # 5.81 X10^3/uL (2.7-7.7); Neutrophil % 67.5 % (47-70); Platelet Count 197 K/mm3 (150-450); Red Blood Count 3.64 M/mm3 (4.2-5.4); White Blood Count 8.6 K/mm3 (4.4-11.0)
[2017-09-24 18:16] LABS: POSITIVE COUNT NO; POSITIVE DIFFERENTIAL NO; POSITIVE MORPHOLOGY NO
[2017-09-24 18:23] LABS: Hemoglobin A1c 8.2 % (4.2-6.3)
[2017-09-24 19:07] LABS: ALB/GLOB Ratio 0.9 RATIO (0.9-2.4); AST(SGOT) 18 U/L (15-37); Alanine Aminotransfer ALT/SGPT 34 U/L (13-56); Albumin, Serum 3.4 g/dL (3.2-5.0); Alkaline Phosphatase 93 U/L (45-117); Anion Gap 9 (5-15); BUN 40 mg/dL (7-18); BUN/Creat Ratio 21.2 RATIO (10-20); Calcium,Total 8.8 mg/dL (8.5-10.1); Chloride 112 mmol/L (98-107); Creatinine, Serum 1.89 mg/dL (0.55-1.02); EST Glomerular Filtration Rate 28 mL/min (>60); Est Glom Filt Rate - Afr Amer 34 mL/min (>60); Ferritin 99 ng/mL (8-252); Globulin 3.7 g/dL (2.2-4.2); Glucose 163 mg/dL (74-106); Iron 43 ug/dL (50-170); Iron Binding Capacity,Total 276 ug/dL (250-450); Protein, Total 7.1 g/dL (6.4-8.2); Sodium Level 144 mmol/L (136-145); T4 Free Direct 1.12 ng/dL (0.76-1.46); Thyroid Stim Hormone (TSH) 2.61 uIU/mL (0.358-3.74)
== END ==
PROVIDERS: Family Provider Internal Medicine; PCP Internal Medicine; Visit Provider Internal Medicine
DX: I50.33 Acute on chronic diastolic (congestive) heart failure (principal); Z79.4 Long term (current) use of insulin; E11.9 Type 2 diabetes mellitus without complications; I10 Essential (primary) hypertension
CPT/HCPCS: 36415; 80053; 82728; 83036; 83540; 83550; 84439; 84443; 85025

== ENCOUNTER → 2017-10-03 08:54 | Outpatient (CLI) | payer MEDICARE, SELFPAY ==
--- NOTE | 2017-10-03 11:11 | PFT ---
INTRODUCTION: The patient is a 71-year-old female that presents for pulmonary function testing secondary to a diagnosis of shortness of breath. Respiratory therapy reports good patient effort. Bronchodilators were used during testing. INTERPRETATION: Forced expiration spirometry demonstrates no evidence of a large airways obstructive ventilatory defect. There was no significant response to aerosolized bronchodilators, based upon strict ATS criteria. Spirograms are of good quality and plateau normally. Body plethysmography was performed and reveals a decreased TLC to 4.1 L, 82% of predicted, indicative of a mild restrictive ventilatory defect. The remainder of the lung volumes are symmetrically reduced. Diffusing capacity by single breath CO is severely reduced at 38% of predicted. IMPRESSION: These pulmonary function studies demonstrate the presence of a mild restrictive ventilatory defect with a disproportionate severe reduction in diffusing capacity. This pattern could represent the presence of evolving interstitial lung process and/or pulmonary vascular disorder, such as pulmonary hypertension.
== END ==
PROVIDERS: Family Provider Internal Medicine; PCP Internal Medicine; Visit Provider Internal Medicine
DX: R06.02 Shortness of breath (principal)
CPT/HCPCS: 94060; 94726; 94729

== ENCOUNTER → 2017-10-08 09:38 | Outpatient (CLI) | payer MEDICARE, SELFPAY ==
[2017-10-08 12:37] LABS: Hematocrit 32.4 % (37-47); Mean Corpuscular Hgb 30.2 pg (27.0-32.0); Mean Platelet Vol. 11.6 fl (6.2-12.0); Platelet Count 191 K/mm3 (150-450); RBC Distribution Width CV 12.6 % (11.6-14.6); RBC Distribution Width SD 39.8 fl (35.1-43.9); Red Blood Count 3.64 M/mm3 (4.2-5.4); White Blood Count 11.9 K/mm3 (4.4-11.0)
[2017-10-08 12:38] LABS: Scan Indicated on CBC? Y/N NO
[2017-10-08 12:45] LABS: Protein, Urine (Random) 116.8 mg/dL (<11.9); Protein:Creat Ratio 531 mg/g CRE (0-200)
[2017-10-08 12:47] LABS: Albumin, Serum 3.4 g/dL (3.2-5.0); BUN 60 mg/dL (7-18); BUN/Creat Ratio 26.2 RATIO (10-20); Calcium,Total 8.9 mg/dL (8.5-10.1); Chloride 107 mmol/L (98-107); Creatinine, Serum 2.29 mg/dL (0.55-1.02); EST Glomerular Filtration Rate 22 mL/min (>60); Est Glom Filt Rate - Afr Amer 27 mL/min (>60); Glucose 264 mg/dL (74-106); Potassium 3.7 mmol/L (3.5-5.1); Sodium Level 144 mmol/L (136-145)
[2017-10-09 09:54] LABS: PTHIN 194.6 pg/mL (18.4-80.1)
== END ==
PROVIDERS: Family Provider Internal Medicine; PCP Internal Medicine; Visit Provider Internal Medicine Nephrology
DX: N18.3 Chronic kidney disease, stage 3 (moderate) (principal); E11.22 Type 2 diabetes mellitus with diabetic chronic kidney disease
CPT/HCPCS: 36415; 80069; 82570; 83970; 84156; 85027

== ENCOUNTER → 2017-10-15 09:49 | Outpatient (CLI) | payer MEDICARE, SELFPAY | PROVIDERS: Family Provider Internal Medicine; PCP Internal Medicine; Visit Provider Internal Medicine | DX: Z12.31 Encounter for screening mammogram for malignant neoplasm of breast (principal) | CPT/HCPCS: 77063; 77067 ==

== ENCOUNTER → 2017-10-18 20:33 | Outpatient (CLI) | payer MEDICARE, SELFPAY | PROVIDERS: Family Provider Internal Medicine; PCP Internal Medicine; Visit Provider Internal Medicine | DX: G47.30 Sleep apnea, unspecified (principal) | CPT/HCPCS: 95810 ==

== ENCOUNTER → 2017-10-28 11:17 | Outpatient (CLI) | payer MEDICARE, SELFPAY ==
[2017-10-28 14:00] LABS: Albumin, Serum 3.1 g/dL (3.2-5.0); BUN 36 mg/dL (7-18); BUN/Creat Ratio 19.4 RATIO (10-20); Calcium,Total 8.8 mg/dL (8.5-10.1); Chloride 111 mmol/L (98-107); Creatinine, Serum 1.86 mg/dL (0.55-1.02); EST Glomerular Filtration Rate 28 mL/min (>60); Est Glom Filt Rate - Afr Amer 34 mL/min (>60); Glucose 182 mg/dL (74-106); Potassium 4.1 mmol/L (3.5-5.1); Sodium Level 142 mmol/L (136-145)
== END ==
PROVIDERS: Family Provider Internal Medicine; PCP Internal Medicine; Visit Provider Internal Medicine Nephrology
DX: N17.9 Acute kidney failure, unspecified (principal); N18.3 Chronic kidney disease, stage 3 (moderate); E11.22 Type 2 diabetes mellitus with diabetic chronic kidney disease
CPT/HCPCS: 36415; 80069

== ENCOUNTER → 2017-12-10 14:57 | Outpatient (CLI) | payer MEDICARE, SELFPAY ==
[2017-12-10 17:55] LABS: Albumin, Serum 3.6 g/dL (3.2-5.0); BUN 45 mg/dL (7-18); BUN/Creat Ratio 21.6 RATIO (10-20); Calcium,Total 9.1 mg/dL (8.5-10.1); Chloride 116 mmol/L (98-107); Creatinine, Serum 2.08 mg/dL (0.55-1.02); EST Glomerular Filtration Rate 25 mL/min (>60); Est Glom Filt Rate - Afr Amer 30 mL/min (>60); Glucose 235 mg/dL (74-106); Phosphorus 3.3 mg/dL (2.5-4.9); Potassium 5.1 mmol/L (3.5-5.1); Sodium Level 143 mmol/L (136-145)
== END ==
PROVIDERS: Family Provider Internal Medicine; PCP Internal Medicine; Visit Provider Internal Medicine Nephrology
DX: N17.9 Acute kidney failure, unspecified (principal)
CPT/HCPCS: 36415; 80069

== ENCOUNTER → 2017-12-17 20:00 | Outpatient (CLI) | payer MEDICARE, SELFPAY | PROVIDERS: Family Provider Internal Medicine; PCP Internal Medicine; Visit Provider Nurse Practitioner Acute Care | DX: G47.33 Obstructive sleep apnea (adult) (pediatric) (principal) | CPT/HCPCS: 95811 ==

== ENCOUNTER → 2017-12-25 15:27 | Outpatient (CLI) | payer MEDICARE, SELFPAY ==
[2017-12-25 17:13] LABS: PTHIN 139.4 pg/mL (18.4-80.1)
== END ==
PROVIDERS: Family Provider Internal Medicine; PCP Internal Medicine; Visit Provider Internal Medicine Nephrology
DX: E21.3 Hyperparathyroidism, unspecified (principal)
CPT/HCPCS: 36415; 83970

== ENCOUNTER → 2017-12-31 11:04 | Outpatient (CLI) | payer MEDICARE, SELFPAY ==
[2017-12-31 11:54] LABS: Absolute Lymphocyte Count 1.36 X10^3/ul (0.83-4.51); Absolute Neutrophil Count 6.9 X10^3/uL (2.0-7.7); Basophil# 0.01 X10^3/uL; Basophil% 0.1 % (0-1); Eosinophil# 0.22 X10^3/uL; Eosinophils% 2.4 % (0-5); Hematocrit 30.3 % (37-47); Hemoglobin 10.2 g/dl (12.0-15.0); Lymphocyte # 1.36 X10^3/ul (4.0); Lymphocyte % 14.7 % (19-41); Mean Corp Hgb Conc 33.7 g/gl (32-36); Mean Corpuscular Hgb 30.3 pg (27.0-32.0); Mean Corpuscular Volume 89.9 fL (81-99); Mean Platelet Vol. 9.8 fl (6.2-12.0); Monocyte# 0.68 X10^3/uL; Monocyte% 7.4 % (0-10); Neutrophil # 6.93 X10^3/uL (2.7-7.7); Neutrophil % 75.1 % (47-70); Platelet Count 155 K/mm3 (150-450); RBC Distribution Width CV 13.6 % (11.6-14.6); RBC Distribution Width SD 43.1 fl (35.1-43.9); Red Blood Count 3.37 M/mm3 (4.2-5.4); White Blood Count 9.2 K/mm3 (4.4-11.0)
[2017-12-31 11:55] LABS: POSITIVE COUNT NO; POSITIVE DIFFERENTIAL NO; POSITIVE MORPHOLOGY NO
[2017-12-31 12:11] LABS: BUN 39 mg/dL (7-18); Creatinine, Serum 1.97 mg/dL (0.55-1.02); EST Glomerular Filtration Rate 27 mL/min (>60); Glucose 218 mg/dL (74-106)
[2017-12-31 12:12] LABS: AST(SGOT) 20 U/L (15-37); Alanine Aminotransfer ALT/SGPT 35 U/L (13-56); Albumin, Serum 3.6 g/dL (3.2-5.0); Alkaline Phosphatase 89 U/L (45-117); Anion Gap 11 (5-15); BUN/Creat Ratio 19.8 RATIO (10-20); Calcium,Total 8.9 mg/dL (8.5-10.1); Chloride 112 mmol/L (98-107); Est Glom Filt Rate - Afr Amer 32 mL/min (>60); Globulin 3.7 g/dL (2.2-4.2); Potassium 4.5 mmol/L (3.5-5.1); Protein, Total 7.3 g/dL (6.4-8.2); Sodium Level 141 mmol/L (136-145)
== END ==
PROVIDERS: Family Provider Internal Medicine; PCP Internal Medicine; Referring Provider Internal Medicine Rheumatology; Visit Provider Internal Medicine Rheumatology
DX: L40.59 Other psoriatic arthropathy (principal); M17.0 Bilateral primary osteoarthritis of knee; L40.8 Other psoriasis; M65.30 Trigger finger, unspecified finger; E10.9 Type 1 diabetes mellitus without complications; I10 Essential (primary) hypertension; K21.0 Gastro-esophageal reflux disease with esophagitis
CPT/HCPCS: 36415; 80053; 85025

== ENCOUNTER → 2018-01-20 12:37 | Outpatient (CLI) | payer MEDICARE, SELFPAY ==
[2018-01-20 06:15] VITALS: BMI 35.3
[2018-01-20 15:04] LABS: Albumin, Serum 3.5 g/dL (3.2-5.0); BUN 43 mg/dL (7-18); BUN/Creat Ratio 18.7 RATIO (10-20); Calcium,Total 8.9 mg/dL (8.5-10.1); Chloride 112 mmol/L (98-107); EST Glomerular Filtration Rate 22 mL/min (>60); Est Glom Filt Rate - Afr Amer 27 mL/min (>60); Glucose 263 mg/dL (74-106); Phosphorus 4.2 mg/dL (2.5-4.9); Potassium 4.9 mmol/L (3.5-5.1); Sodium Level 143 mmol/L (136-145)
== END ==
LOC: LAB.FUTURE 12:38 → MTLAB 12:40
PROVIDERS: Family Provider Internal Medicine; PCP Internal Medicine; Referring Provider Internal Medicine Nephrology; Visit Provider Internal Medicine Nephrology
DX: N18.4 Chronic kidney disease, stage 4 (severe) (principal)
CPT/HCPCS: 36415; 80069

== ENCOUNTER → 2018-03-13 14:01 | Outpatient (CLI) | payer MEDICARE, SELFPAY ==
[2018-02-13 14:54] VITALS: BMI 36.0
[2018-03-13 15:50] LABS: Albumin, Serum 3.3 g/dL (3.2-5.0); BUN 33 mg/dL (7-18); BUN/Creat Ratio 16.8 RATIO (10-20); Calcium,Total 9.2 mg/dL (8.5-10.1); Chloride 110 mmol/L (98-107); Creatinine, Serum 1.97 mg/dL (0.55-1.02); EST Glomerular Filtration Rate 27 mL/min (>60); Est Glom Filt Rate - Afr Amer 32 mL/min (>60); Glucose 216 mg/dL (74-106); Phosphorus 3.7 mg/dL (2.5-4.9); Potassium 4.4 mmol/L (3.5-5.1); Sodium Level 143 mmol/L (136-145)
[2018-03-13 15:54] LABS: PTHIN 106.8 pg/mL (18.4-80.1)
== END ==
PROVIDERS: Family Provider Internal Medicine; PCP Internal Medicine; Referring Provider Internal Medicine Nephrology; Visit Provider Internal Medicine Nephrology
DX: N18.4 Chronic kidney disease, stage 4 (severe) (principal); N25.81 Secondary hyperparathyroidism of renal origin
CPT/HCPCS: 36415; 80069; 83970

== ENCOUNTER → 2018-04-03 10:46 | Outpatient (CLI) | payer MEDICARE, SELFPAY ==
[2018-03-21 11:05] VITALS: BMI 36.0
--- NOTE | 2018-04-03 10:55 | BD_ITS ---
STUDY: DUAL ENERGY X-RAY ABSORPTIOMETRY / DXA REASON FOR EXAM: Female, 72 years old. The patient is postmenopausal. Loss of height. TECHNIQUE: Bone Mineral Density (BMD) measurements of lumbar spine and bilateral hips were obtained. COMPARISON: Comparison is made with prior study dated December 14, 2010. FINDINGS: Lumbar Spine (L1-L4): g/cm2 (1.400) / T-score (1.9) / Z-score (3.6) Findings are suggestive of normal bone density with a low fracture risk. Left Femur Total: g/cm2 (0.927) / T-score (-0.6) / Z-score (0.9) Left Femoral Neck: g/cm2 (0.691) / T-score (-2.5) / Z-score (-0.8) Right Femur Total: g/cm2 (0.976) / T-score (-0.3) / Z-score (1.3) Right Femoral Neck: g/cm2 (0.750) / T-score (-2.1) / Z-score (-0.3) The T-Scores on the most recent prior examination were: Lumbar Spine (L1-L4): There has been improvement of bone density since the previous examination. Left Femur Total: which represents a worsening of 15.7%. Right Femur Total: which represents a worsening of 11.3%. BD/Dexa Bone Density Study IMPRESSION: The patient is considered osteopenic as outlined below according to World Jon Organization (WHO) criteria with a high fracture risk. There has been worsening of bone density since the previous examination. Reference Information: The T-score is the number of standard deviations above or below the standard which is normal for young adults at their peak bone mineral density. The World Health Organization (WHO) interprets the T-scores as follows: Above -1 Normal bone density Between -1 and -2.5 Osteopenia Equal to / or below -2.5 Osteoporosis As a practical clinical guideline, osteopenia may be graded as follows: Mild -1 through -1.5 Moderate -1.6 through -2.0 Severe -2.1 through -2.4 The Z-score is the number of standard deviations above or below age-matched controls. A Z-score of less than -1.5 would be considered abnormal. References: 1. NIH Osteoporosis and Related Bone Diseases http://www.osteo.org 2. International Society for Clinical Densitometry http://www.iscd.org 3. National Osteoporosis Foundation http://www.nof.org Electronically Signed: Warren Coombs MD at 9:31 EST , Service support ,
== END ==
PROVIDERS: Family Provider Internal Medicine; PCP Internal Medicine; Referring Provider Internal Medicine; Visit Provider Internal Medicine
DX: Z78.0 Asymptomatic menopausal state (principal)
CPT/HCPCS: 77080

== ENCOUNTER → 2018-05-19 11:44 | Outpatient (CLI) | payer MEDICARE, SELFPAY ==
[2018-03-21 11:05] VITALS: BMI 36.0
[2018-05-19 14:02] LABS: Absolute Lymphocyte Count 1.29 X10^3/ul (0.83-4.51); Basophil# 0.03 X10^3/uL; Basophil% 0.3 % (0-1); Eosinophil# 0.35 X10^3/uL; Eosinophils% 3.7 % (0-5); Hematocrit 30.7 % (37-47); Hemoglobin 9.8 g/dl (12.0-15.0); Lymphocyte # 1.29 X10^3/ul (4.0); Lymphocyte % 13.5 % (19-41); Mean Corp Hgb Conc 31.9 g/gl (32-36); Mean Corpuscular Hgb 28.7 pg (27.0-32.0); Mean Platelet Vol. 10.8 fl (6.2-12.0); Monocyte# 0.93 X10^3/uL; Monocyte% 9.7 % (0-10); Neutrophil # 6.96 X10^3/uL (2.7-7.7); Neutrophil % 72.6 % (47-70); Platelet Count 185 K/mm3 (150-450); RBC Distribution Width CV 13.7 % (11.6-14.6); RBC Distribution Width SD 43.7 fl (35.1-43.9); Red Blood Count 3.41 M/mm3 (4.2-5.4); White Blood Count 9.6 K/mm3 (4.4-11.0)
[2018-05-19 14:06] LABS: POSITIVE COUNT NO; POSITIVE DIFFERENTIAL NO; POSITIVE MORPHOLOGY NO
[2018-05-19 14:15] LABS: AST(SGOT) 15 U/L (15-37); Alanine Aminotransfer ALT/SGPT 25 U/L (13-56); Albumin, Serum 3.6 g/dL (3.2-5.0); Alkaline Phosphatase 89 U/L (45-117); Anion Gap 5 (5-15); BUN 39 mg/dL (7-18); BUN/Creat Ratio 15.9 RATIO (10-20); Calcium,Total 8.8 mg/dL (8.5-10.1); Chloride 115 mmol/L (98-107); Creatinine, Serum 2.46 mg/dL (0.55-1.02); EST Glomerular Filtration Rate 21 mL/min (>60); Est Glom Filt Rate - Afr Amer 25 mL/min (>60); Globulin 3.6 g/dL (2.2-4.2); Glucose 229 mg/dL (74-106); Potassium 4.4 mmol/L (3.5-5.1); Protein, Total 7.2 g/dL (6.4-8.2); Sodium Level 140 mmol/L (136-145)
== END ==
PROVIDERS: Family Provider Internal Medicine; PCP Internal Medicine; Referring Provider Internal Medicine Rheumatology; Visit Provider Internal Medicine Rheumatology
DX: L40.59 Other psoriatic arthropathy (principal); M17.0 Bilateral primary osteoarthritis of knee; L40.8 Other psoriasis; M65.30 Trigger finger, unspecified finger; E10.9 Type 1 diabetes mellitus without complications; I10 Essential (primary) hypertension; K21.0 Gastro-esophageal reflux disease with esophagitis
CPT/HCPCS: 36415; 80053; 85025

== ENCOUNTER → 2018-07-08 11:13 | Outpatient (CLI) | payer MEDICARE, SELFPAY ==
[2018-06-06 14:34] VITALS: BMI 36.0
[2018-07-08 13:49] LABS: Absolute Lymphocyte Count 1.32 X10^3/ul (0.83-4.51); Absolute Neutrophil Count 5.7 X10^3/uL (2.0-7.7); Basophil# 0.02 X10^3/uL; Basophil% 0.2 % (0-1); Eosinophil# 0.37 X10^3/uL; Eosinophils% 4.5 % (0-5); Hemoglobin 10.8 g/dl (12.0-15.0); Lymphocyte # 1.32 X10^3/ul (4.0); Lymphocyte % 16.1 % (19-41); Mean Corp Hgb Conc 32.7 g/gl (32-36); Mean Corpuscular Hgb 28.4 pg (27.0-32.0); Mean Corpuscular Volume 86.8 fL (81-99); Mean Platelet Vol. 10.7 fl (6.2-12.0); Monocyte# 0.82 X10^3/uL; Neutrophil # 5.65 X10^3/uL (2.7-7.7); Platelet Count 164 K/mm3 (150-450); RBC Distribution Width CV 13.9 % (11.6-14.6); RBC Distribution Width SD 42.7 fl (35.1-43.9); White Blood Count 8.2 K/mm3 (4.4-11.0)
[2018-07-08 13:51] LABS: POSITIVE COUNT NO; POSITIVE DIFFERENTIAL NO; POSITIVE MORPHOLOGY NO
[2018-07-08 14:18] LABS: AST(SGOT) 20 U/L (15-37); Alanine Aminotransfer ALT/SGPT 26 U/L (13-56); Albumin, Serum 3.6 g/dL (3.2-5.0); Alkaline Phosphatase 87 U/L (45-117); Anion Gap 8 (5-15); BUN 34 mg/dL (7-18); BUN/Creat Ratio 15.7 RATIO (10-20); Calcium,Total 8.9 mg/dL (8.5-10.1); Chloride 111 mmol/L (98-107); Creatinine, Serum 2.16 mg/dL (0.55-1.02); EST Glomerular Filtration Rate 24 mL/min (>60); Est Glom Filt Rate - Afr Amer 29 mL/min (>60); Globulin 3.7 g/dL (2.2-4.2); Glucose 239 mg/dL (74-106); Potassium 4.2 mmol/L (3.5-5.1); Protein, Total 7.3 g/dL (6.4-8.2); Sodium Level 142 mmol/L (136-145)
== END ==
PROVIDERS: Family Provider Internal Medicine; PCP Internal Medicine; Referring Provider Internal Medicine Rheumatology; Visit Provider Internal Medicine Rheumatology
DX: L40.59 Other psoriatic arthropathy (principal); M79.7 Fibromyalgia; M17.0 Bilateral primary osteoarthritis of knee; L40.8 Other psoriasis; M65.30 Trigger finger, unspecified finger; M47.897 Other spondylosis, lumbosacral region
CPT/HCPCS: 36415; 80053; 85025

== ENCOUNTER → 2018-07-18 10:13 | Outpatient (CLI) | payer MEDICARE, SELFPAY ==
[2018-06-06 14:34] VITALS: BMI 36.0
[2018-07-18 12:33] LABS: Hematocrit 30.9 % (37-47); Hemoglobin 10.2 g/dl (12.0-15.0); Mean Corpuscular Hgb 28.7 pg (27.0-32.0); Mean Platelet Vol. 10.9 fl (6.2-12.0); Platelet Count 144 K/mm3 (150-450); RBC Distribution Width CV 13.9 % (11.6-14.6); RBC Distribution Width SD 42.5 fl (35.1-43.9); Red Blood Count 3.55 M/mm3 (4.2-5.4); White Blood Count 8.6 K/mm3 (4.4-11.0)
[2018-07-18 12:35] LABS: Scan Indicated on CBC? Y/N NO
[2018-07-18 12:45] LABS: PTHIN 163.3 pg/mL (18.4-80.1)
[2018-07-18 12:47] LABS: Albumin, Serum 3.5 g/dL (3.2-5.0); BUN 42 mg/dL (7-18); BUN/Creat Ratio 16.6 RATIO (10-20); Calcium,Total 8.7 mg/dL (8.5-10.1); Chloride 110 mmol/L (98-107); Creatinine, Serum 2.53 mg/dL (0.55-1.02); EST Glomerular Filtration Rate 20 mL/min (>60); Est Glom Filt Rate - Afr Amer 24 mL/min (>60); Glucose 422 mg/dL (74-106); Phosphorus 4.1 mg/dL (2.5-4.9); Potassium 4.7 mmol/L (3.5-5.1); Sodium Level 136 mmol/L (136-145)
== END ==
PROVIDERS: Family Provider Internal Medicine; PCP Internal Medicine; Referring Provider Internal Medicine Nephrology; Visit Provider Internal Medicine Nephrology
DX: N18.4 Chronic kidney disease, stage 4 (severe) (principal); N25.81 Secondary hyperparathyroidism of renal origin
CPT/HCPCS: 36415; 80069; 83970; 85027

== ENCOUNTER → 2018-08-20 | Outpatient (CLI) | payer MEDICARE, SELFPAY ==
[2018-06-06 14:34] VITALS: BMI 36.0
--- NOTE | 2018-08-20 13:42 | ECHOD_ITS ---
Reason For Study: PHTN Procedure This was a 2D Doppler, Color Flow transthoracic echocardiogram. Exam performed in department. Left Ventricle Mild concentric left ventricular hypertrophy. The estimated ejection fraction is 65 %. Stage 1 diastolic dysfunction. No regional wall motion abnormalities noted. Right Ventricle Normal size and thickness. Normal systolic function. Atria Normal left atrium. Normal right atrium. Normal atrial septum. Mitral Valve The mitral valve is structurally normal. No prolapse or stenosis seen. Trivial mitral valve insufficiency. Tricuspid Valve Normal tricuspid valve. Mild (1+) tricuspid valve insufficiency. Right ventricular systolic pressure estimated to be 53 mmHg. Moderate pulmonary hypertension. Aortic Valve Trisinus/trileaflet aortic valve. Trivial aortic valve insufficiency. Pulmonic Valve Normal pulmonic valve. Trivial pulmonic valve insufficiency. Great Vessels Normal aortic root. Normal arch. Normal inferior vena cava. Inferior vena cava collapse with sniff. Pericardium/Pleural No pericardial effusion. MMode/2D Measurements & Calculations LVIDd: 5.0 cm IVSd: 1.4 cm Ao root diam: 2.8 cm LVIDs: 3.5 cm LVPWd: 1.3 cm RVDd: 3.5 cm FS: 29.4 % LAV(MOD-bp): 63.6 ml LA A4 area: 21.9 cm2 LA dimension(2D): 4.3 cm LAV(MOD-bp) Indexed: 32.2 ml/m2 LAV(MOD-sp2): 49.2 ml LAV(MOD-sp4): 69.0 ml RA A4 area: 10.3 cm2 Doppler Measurements & Calculations MV E max oj: 97.9 cm/sec Lat Peak E' Oj: 6.5 cm/sec Med Peak E' Oj: 4.5 cm/sec MV A max oj: 90.8 cm/sec E/E' lat: 15.1 E/E' med: 21.9 MV E/A: 1.1 Ao V2 max: 141.6 cm/sec LV V1 max: 110.8 cm/sec PA V2 max: 107.6 cm/sec Ao max P.0 mmHg LV V1 max P.9 mmHg TR max oj: 330.7 cm/sec TR max P.0 mmHg Interpretation Summary The estimated ejection fraction is 65 %. Stage 1 diastolic dysfunction. Trivial mitral valve insufficiency. Mild (1+) tricuspid valve insufficiency. Right ventricular systolic pressure estimated to be 53 mmHg. Moderate pulmonary hypertension. Trivial aortic valve insufficiency. Compared to echo report dated 08/03/2017, no appreciable changes noted. Ordering Physician: Josué Amaro Referring Physician: Hamzah Wallis Performed By: Natalia Bonilla RDCS
== END | disposition home or self-care (01) ==
LOC: CVS 13:41
PROVIDERS: Family Provider Internal Medicine; PCP Internal Medicine; Referring Provider Internal Medicine Critical Care Medicine; Visit Provider Internal Medicine Critical Care Medicine
DX: I27.20 Pulmonary hypertension, unspecified (principal); R60.0 Localized edema; G47.33 Obstructive sleep apnea (adult) (pediatric)
CPT/HCPCS: 93306

== ENCOUNTER → 2018-09-09 10:42 | Outpatient (CLI) | payer MEDICARE, SELFPAY ==
[2018-02-05 08:44] VITALS: BMI 34.8
[2018-09-05 15:25] VITALS: BMI 37.0
[2018-09-09 11:00] VITALS: PULSE 102; PULSE 103; PULSE 104; PULSE 70; PULSE 75; PULSE 90; PULSE 93; PULSE 99; O2SAT 95; O2SAT 97; O2SAT 98; O2SAT 99
--- NOTE | 2018-09-09 15:23 | PCM.PSN.6M ---
PSN 6 Minute Walk Test - 6 Minute Walk Test 6 Minute Walk Test: 6 Minute Walk Test PSN:6-Minute Walk Test Start: 09/09/18 11:17 Freq: Status: Active Protocol: RESP.6MINW Document 09/09/18 11:00 HG (Rec: 09/09/18 11:19 HG [id number]) 6 Minute Walk Test Date Performed 09/09/18 Time Performed 11:00 Height 5 ft 4 in Weight: 93.44 kg Weight in Pounds 206.[address]: Josué Amaro Assistive device used: None Pre-test Oxygen Delivery Method Room Air Pulse Ox (%) 98 Pulse Rate (60-100 beats/min) 75 Dyspnea Saige Scale (0-10) 0 Exertion Saige Scale (6-20) 6 1st minute Oxygen Delivery Method Room Air Pulse Ox (%) 97 Pulse Rate (60-100 beats/min) 70 2nd minute Oxygen Delivery Method Room Air Pulse Ox (%) 95 Pulse Rate (60-100 beats/min) 90 3rd minute Oxygen Delivery Method Room Air Pulse Ox (%) 98 Pulse Rate (60-100 beats/min) 99 4th minute Oxygen Delivery Method Room Air Pulse Ox (%) 99 Pulse Rate (60-100 beats/min) 102 H Reported Symptoms Increased Work of Breathing 5th minute Oxygen Delivery Method Room Air Pulse Ox (%) 98 Pulse Rate (60-100 beats/min) 104 H Reported Symptoms Increased Work of Breathing 6th minute Oxygen Delivery Method Room Air Pulse Ox (%) 95 Pulse Rate (60-100 beats/min) 103 H Reported Symptoms Increased Work of Breathing Post-test Oxygen Delivery Method Room Air Pulse Ox (%) 97 Pulse Rate (60-100 beats/min) 93 Dyspnea Saige Scale (0-10) 3 Exertion Saige Scale (6-20) 13 Full Laps Walked 16 Partial Lap, Number of Tiles Walked 0 Total Distance Walked (ft) 944 - Interpretation Interpretation: The patient was able to ambulate 944 feet over the course of 6 minutes on room air with no significant desaturation and mild tachycardia. These findings are consistent with deconditioning. - Recommendations Recommendations: No supplemental oxygen is indicated at this time.
== END ==
PROVIDERS: Family Provider Internal Medicine; PCP Internal Medicine; Referring Provider Internal Medicine Critical Care Medicine; Visit Provider Internal Medicine Critical Care Medicine
DX: R06.02 Shortness of breath (principal)
CPT/HCPCS: 94618

== ENCOUNTER → 2018-09-25 13:19 | Outpatient (CLI) | payer MEDICARE, SELFPAY ==
[2018-08-22 10:21] VITALS: BMI 37.0
[2018-09-05 15:25] VITALS: BMI 37.0
--- NOTE | 2018-09-25 14:40 | PFTCOMP_ITS ---
COMPLETE PULMONARY FUNCTION TEST INTERPRETATION Brief HPI: Patient is a 72 year old female, currently under the care of myself, who presents to [facility] for complete pulmonary function tests secondary to diagnosis of dyspnea. Respiratory therapist reports good effort and reproducible results. Interpretation: Forced expiration spirometry shows no large airways obstructive ventilatory defect with an FEV1 of 70% predicted. There is no significant bronchodilator response by strict ATS criteria. Spirograms are of good quality and plateau normally. The respiratory flow volume loop shows a normal pattern. Lung volumes by body plethysmography show a reduced total lung capacity at 3.57 L, 74% predicted. All other lung volumes are reduced symmetrically. Diffusion capacity by carbon monoxide is decreased at 28% predicted. The airway resistance is elevated. Compared to previous pulmonary function tests from 10/03/2017, there is been a significant reduction in all measured values by at least 13%. Impression: Mild restrictive ventilatory defect with a severe reduction in diffusing capacity and significant worsening compared to previous study.
== END ==
PROVIDERS: Family Provider Internal Medicine; PCP Internal Medicine; Referring Provider Nurse Practitioner Acute Care; Visit Provider Nurse Practitioner Acute Care
DX: R06.02 Shortness of breath (principal)
CPT/HCPCS: 94060; 94726; 94729

== ENCOUNTER → 2018-09-30 10:46 | Outpatient (CLI) | payer MEDICARE, SELFPAY ==
[2018-09-05 15:25] VITALS: BMI 37.0
[2018-09-30 12:10] LABS: Hematocrit 29.3 % (37-47); Mean Corp Hgb Conc 34.1 g/dL (32-36); Mean Corpuscular Hgb 30.2 pg (27.0-32.0); Mean Corpuscular Volume 88.5 fL (81-99); Mean Platelet Vol. 10.7 fl (6.2-12.0); Platelet Count 132 K/mm3 (150-450); RBC Distribution Width CV 13.5 % (11.6-14.6); RBC Distribution Width SD 43.8 fl (35.1-43.9); Red Blood Count 3.31 M/mm3 (4.2-5.4); White Blood Count 7.3 K/mm3 (4.4-11.0)
[2018-09-30 12:36] LABS: Albumin, Serum 3.3 g/dL (3.2-5.0); BUN 37 mg/dL (7-18); BUN/Creat Ratio 18.2 RATIO (10-20); Calcium,Total 8.5 mg/dL (8.5-10.1); Chloride 114 mmol/L (98-107); Creatinine, Serum 2.03 mg/dL (0.55-1.02); EST Glomerular Filtration Rate 26 mL/min (>60); Est Glom Filt Rate - Afr Amer 31 mL/min (>60); Glucose 247 mg/dL (74-106); Potassium 4.2 mmol/L (3.5-5.1); Sodium Level 143 mmol/L (136-145)
== END ==
PROVIDERS: Family Provider Internal Medicine; PCP Internal Medicine; Referring Provider Internal Medicine Nephrology; Visit Provider Internal Medicine Nephrology
DX: N18.4 Chronic kidney disease, stage 4 (severe) (principal); N25.81 Secondary hyperparathyroidism of renal origin; E11.22 Type 2 diabetes mellitus with diabetic chronic kidney disease; N17.9 Acute kidney failure, unspecified
CPT/HCPCS: 36415; 80069; 82570; 83970; 84156; 85027

== ENCOUNTER → 2018-10-01 14:09 | Outpatient (CLI) | payer MEDICARE, SELFPAY ==
[2018-09-05 15:25] VITALS: BMI 37.0
[2018-10-01 15:58] LABS: Protein, Urine (Random) 249.7 mg/dL (<11.9); Protein:Creat Ratio 1403 mg/g CRE (0-200)
== END ==
PROVIDERS: Family Provider Internal Medicine; PCP Internal Medicine; Referring Provider Internal Medicine Nephrology; Visit Provider Internal Medicine Nephrology
DX: N18.4 Chronic kidney disease, stage 4 (severe) (principal); N17.9 Acute kidney failure, unspecified; E11.22 Type 2 diabetes mellitus with diabetic chronic kidney disease; N25.81 Secondary hyperparathyroidism of renal origin
CPT/HCPCS: 82570; 84156

== ENCOUNTER 2018-12-08 05:13 | Observation (INO) | payer MEDICARE, SELFPAY ==
[2018-11-27 10:08] VITALS: BMI 36.4
[2018-12-08] VITALS (14 sets, daily range): BP systolic 174–214; BP diastolic 40–105; PULSE 61–88; RESP 15–18; TEMP 36.6–37.1; O2SAT 94–98; BMI 39.2; BMI 37.3
--- NOTE | 2018-12-08 05:33 | RAD_ITS ---
STUDY: X-RAY CHEST REASON FOR EXAM: Female, 73 years old. Chest pain TECHNIQUE: Portable chest COMPARISON: 08/02/2017 FINDINGS: The lungs are clear and expanded. There is no demonstrated pleural abnormality. There is stable cardiomegaly. Normal mediastinum and everardo. Normal visualized pulmonary arteries. Normal visualized aortic arch and descending thoracic aorta. Normal visualized thoracic spine. Normal visualized ribs, clavicles, and shoulders. There is no demonstrated abnormality of the visualized soft tissue structures of the upper abdomen. RAD/Chest 1 View (Portable) IMPRESSION: Stable cardiomegaly Electronically Signed: Aaron Yeh, at 5:57 EDT Tel , Service support ,
--- NOTE | 2018-12-08 05:33 | EKG12_ITS ---
Test Reason : CP Blood Pressure : / mmHG Vent. Rate : 067 BPM Atrial Rate : 067 BPM P-R Int : 134 ms QRS Dur : 094 ms QT Int : 414 ms P-R-T Axes : 057 022 049 degrees QTc Int : 437 ms Normal sinus rhythm Normal ECG Confirmed by SUMAN BALTAZAR, BARRY ([id number]), photographic editor SHRUTHI MCFARLANE ([id number]) on 12/10/2018 1:41:22 PM Referred By: SHARLA Confirmed By:BARRY WILL MD
--- NOTE | 2018-12-08 05:34 | ED.DCSUM_ITS ---
- ER Visit Summary Date of Service: 12/08/18 Chief Complaint: Chest pain History of Present Illness: The patient is a 73 F who presents with chest pain that began this morning. Patient states she woke up and noted some pain in her chest. Patient states the pain is over the left lower sternal area and epig astric area. Patient describes the pain as stabbing. Patient states this lasted 1 to 2 hours. Patient states the pain has resolved by now. Patient states nothing makes it better or worse. Patient admits to a cough and some shortness of breath. Patient also admits to some lightheadedness and palpitations. Patient denies any diaphoresis. Patient denies any nausea or vomiting. Physical Examination: Vital signs are stable except for an elevated blood pressure of 184/105. Patient is afebrile. Patient is in no acute distress. Oral mucosa is pink and moist. Neck is supple. Trachea is midline. There is no JVD noted. Heart was regular rate and rhythm. Lungs are clear and equal bilaterally. Abdomen is soft. Bowel sounds are normal. There is no tenderness. There is no guarding noted. Skin is warm dry. Cranial nerves II through XII are intact. There are no focal motor or sensory deficits noted. Test Results: EKG showed normal sinus rhythm with a rate of 67. There are no acute ST or T wave changes noted. This was unchanged compared to previous EKG dated 08/02/2017. Portable chest x-ray was obtained and showed cardiomegaly. The re is no acute cardiopulmonary process. This was interpreted by the radiologist and myself. CBC showed a mild anemia with hemoglobin of 9.4. This was stable compared to previous results. Basic metabolic profile showed a creatinine of 2.05. This was also stable compared to previous results. Troponin was less than 0.015. Emergency Department Course and Treatment: Patient was given aspirin. Patient has a HEART score of 5. Patient is a MIR risk score of 3. Patient has not had a recent stress test. Patient is feeling better on reevaluation. Given her risk factors and increased HEART and MIR risk scores, patient was discussed with the hospitalist. She will be in to evaluate the patient and admit the patient to her service. Disposition: Admit to hospital Impression: 1. Chest pain This note was generated with [employer] Guides[employer] software. It may contain incorrect words, spelling, and punctuation that were not noted in review of the chart prior to signing ED Disposition - Plan for ED Patient: Disposition: Acute Care Hospital [facility], [place] Diagnosis: Chest pain Referrals: Hamzah Wallis MD [Primary Care Provider] -
[2018-12-08 06:01] LABS: Absolute Lymphocyte Count 1.84 X10^3/uL (0.83-4.51); Basophil# 0.03 X10^3/uL; Basophil% 0.3 % (0-1); Eosinophils% 5.4 % (0-5); Hematocrit 28.5 % (37-47); Hemoglobin 9.4 g/dL (12.0-15.0); Lymphocyte # 1.84 X10^3/ul (4.0); Lymphocyte % 19.7 % (19-41); Mean Corpuscular Volume 91.1 fL (81-99); Mean Platelet Vol. 10.7 fl (6.2-12.0); Monocyte# 0.89 X10^3/uL; Monocyte% 9.5 % (0-10); NRBC Flagged by Analyzer 0 % (0-5); Neutrophil # 6.01 X10^3/uL (2.7-7.7); Neutrophil % 64.6 % (47-70); Platelet Count 155 K/mm3 (150-450); RBC Distribution Width CV 13.2 % (11.6-14.6); RBC Distribution Width SD 43.7 fl (35.1-43.9); Red Blood Count 3.13 M/mm3 (4.2-5.4); White Blood Count 9.3 K/mm3 (4.4-11.0)
[2018-12-08 06:04] LABS: Anion Gap 9 (5-15); BUN 30 mg/dL (7-18); BUN/Creat Ratio 14.6 RATIO (10-20); Calcium,Total 8.4 mg/dL (8.5-10.1); Chloride 114 mmol/L (98-107); Creatinine, Serum 2.05 mg/dL (0.55-1.02); EST Glomerular Filtration Rate 25 mL/min (>60); Est Glom Filt Rate - Afr Amer 31 mL/min (>60); Estimated Creatinine Clearance 20.52 ml/min; Glucose 89 mg/dL (74-106); Potassium 4.1 mmol/L (3.5-5.1); Sodium Level 146 mmol/L (136-145)
[2018-12-08] MEDS: Aspirin 81 MG TAB.CHEW 324 MG PO (06:07)
--- NOTE | 2018-12-08 07:46 | ECHOD_ITS ---
Reason For Study: CP Procedure This was a 2D Doppler, Color Flow transthoracic echocardiogram. Exam performed portable in patient room. Left Ventricle Moderate concentric left ventricular hypertrophy. The estimated ejection fraction is 65 %. Stage 2 diastolic dysfunction. No regional wall motion abnormalities noted. Right Ventricle Normal size and thickness. Normal systolic function. Atria The left atrium is mildly enlarged. Normal right atrium. Normal atrial septum. Mitral Valve The mitral valve is structurally normal. No prolapse or stenosis seen. Trivial mitral valve insufficiency. Tricuspid Valve Normal tricuspid valve. Mild (1+) tricuspid valve insufficiency. Right ventricular systolic pressure estimated to be 49 mmHg. Moderate pulmonary hypertension. Aortic Valve Normal aortic valve. Trisinus/trileaflet aortic valve. Pulmonic Valve Normal pulmonic valve. Great Vessels Normal aortic root. Normal arch. Normal inferior vena cava. Inferior vena cava collapse with sniff. Pericardium/Pleural No pericardial effusion. MMode/2D Measurements & Calculations LVIDd: 4.7 cm IVSd: 1.5 cm Ao root diam: 3.3 cm LVIDs: 2.3 cm LVPWd: 1.3 cm LA dimension: 4.3 cm RVDd: 3.5 cm FS: 51.4 % LAV(MOD-bp): 70.3 ml LA A4 area: 22.1 cm2 RA A4 area: 14.5 cm2 LAV(MOD-bp) Indexed: 34.9 ml/m2 LAV(MOD-sp2): 61.8 ml LAV(MOD-sp4): 67.4 ml Time Measurements MV dec time: 0.19 sec Doppler Measurements & Calculations MV E max oj: 124.4 cm/sec Lat Peak E' Oj: 7.2 cm/sec Med Peak E' Oj: 5.9 cm/sec MV A max oj: 94.8 cm/sec E/E' lat: 17.2 E/E' med: 21.2 MV E/A: 1.3 MV V2 max: 133.0 cm/sec MV P1/2t max oj: 133.0 cm/sec Ao V2 max: 152.7 cm/sec MV max P.1 mmHg MV P1/2t: 54.9 msec Ao max P.3 mmHg MV V2 mean: 73.2 cm/sec MV dec slope: 709.2 cm/sec2 Ao V2 mean: 98.2 cm/sec MV mean P.5 mmHg MVA(P1/2t): 4.0 cm2 Ao mean P.4 mmHg MV V2 VTI: 36.1 cm Ao V2 VTI: 34.8 cm LV V1 max: 105.7 cm/sec PA V2 max: 122.4 cm/sec TR max oj: 328.8 cm/sec LV V1 max P.5 mmHg TR max P.2 mmHg LV V1 mean P.3 mmHg LV V1 mean: 72.0 cm/sec LV V1 VTI: 29.0 cm Interpretation Summary Moderate concentric left ventricular hypertrophy. The estimated ejection fraction is 65 %. Stage 2 diastolic dysfunction. The left atrium is mildly enlarged. Trivial mitral valve insufficiency. Mild (1+) tricuspid valve insufficiency. Right ventricular systolic pressure estimated to be 49 mmHg. Moderate pulmonary hypertension. Compared to echo report dated 08/20/2018, no appreciable changes noted. Ordering Physician: Jessi Cardoza Referring Physician: Hamzah Wallis Performed By: Rock Moura RCS
--- NOTE | 2018-12-08 07:46 | EKG12_ITS ---
Test Reason : CP ADMISSION Blood Pressure : / mmHG Vent. Rate : 066 BPM Atrial Rate : 066 BPM P-R Int : 130 ms QRS Dur : 090 ms QT Int : 424 ms P-R-T Axes : 052 019 070 degrees QTc Int : 444 ms Normal sinus rhythm Nonspecific T wave abnormality Abnormal ECG Confirmed by SUMAN BALTAZAR, BARRY ([id number]), news assignment editor SHRUTHI MCFARLANE ([id number]) on 12/10/2018 2:36:55 PM Referred By: JANETH Confirmed By:BARRY WILL MD
--- NOTE | 2018-12-08 08:17 | PCM.HP.STD ---
Problem List (1) Chest pain Status: Acute (2) Cough Status: Acute (3) Pulmonary hypertension Status: Chronic Comment: RVSP 53 (4) Bilateral edema of lower extremity Status: Chronic (5) KHANG (obstructive sleep apnea) Status: Chronic (6) CKD (chronic kidney disease), stage IV Status: Chronic (7) Hypersomnolence Status: Chronic (8) Bilateral edema of lower extremity Status: Chronic (9) GERD (gastroesophageal reflux disease) Status: Chronic Qualifiers: (10) Uncontrolled hypertension Status: Chronic (11) HLD (hyperlipidemia) Status: Chronic Qualifiers: Comment: untreated (12) Type 2 diabetes mellitus treated with insulin Status: Chronic (13) Left carotid bruit Status: Chronic (14) Rheumatoid arthritis Status: Chronic Qualifiers: (15) History of diverticulosis Status: Chronic (16) History of esophageal reflux Status: Chronic (17) Psoriasis Status: Chronic (18) Systolic hypertension with cerebrovascular disease Status: Chronic Comment: multiple lacunar strokes related to HTN left tongue deviation (19) Renal artery atherosclerosis Status: Chronic Comment: moderate 3 renal arteries on left, anatomical variation (20) Chronic renal failure, stage 4 (severe) Status: Chronic (21) Morbid obesity Status: Chronic Comment: BMI 39 on 12/08/18 (22) Chronic diastolic (congestive) heart failure Status: Chronic History of Present Illness Date of Admission: 12/08/18 Chief Complaint: Chest pain The patient is a 73 year old F past medical history of hypertension, diabetes mellitus type 2, GERD, hyperlipidemia, KHANG, morbid obesity, chronic renal failure stage IV, pulmonary hypertension, renal artery atherosclerosis and stage I diastolic dysfunction presented to the emergency department at [facility] early in the morning on 12/08/2018 complaining of chest pain located beneath the left breast. The chest pain started at rest while she was lying in bed, it did not wake her up she had just been to the bathroom. There was no radiation of the pain and there was no diaphoresis, no nausea, no shortness of breath, no palpitations and no lightheadedness. Lasted for a few hours and then went away by itself. EKG in the emergency room was normal. There was no ST elevation or significant ST or T wave changes. Chest x-ray showed cardiomegaly but no pleural effusions, infiltrates or pulmonary vascular congestion. Initial troponin was less than 0.015. Hemoglobin is low at 9.4 with normochromic normocytic indices. Platelets and white blood cell count were within normal limits. Sodium is increased at 146 and the chloride is 114. The BUN is 30 and the creatinine is 2.05 which is within her baseline. Creatinine clearance is 20.5. She is being admitted to a monitored bed on PCU. Dr. Lovelace has been consulted. IF the CE's are negative will proceed with t a Dobutamine stress ECHO in the AM. She is compliant with BIPAP and she follows with Dr. Josué Amaro. Her last sleep study was approximately 1 year ago. Her compliance rate in September 2018 was 83% of the time for an average of 4 hours and 58 minutes on BiPAP 14/11 PFTs in September 2018 showed a mild restrictive ventilatory defect with a severe reduction in diffusing capacity and significant worsening compared to previous study. 6-minute walk in September 2018 with no significant desaturation and no supplemental oxygen was prescribed. Past Medical History Past Medical History (Chronic Problems): Chronic Problems (Last Reviewed 12/08/18 @ 08:40 by Jessi Cardoza DO) Chronic renal failure, stage 4 (severe) (Chronic) Morbid obesity (Chronic) BMI 39 on 12/08/18 Chronic diastolic (congestive) heart failure (Chronic) Pulmonary hypertension (Chronic) RVSP 53 Bilateral edema of lower extremity (Chronic) KHANG (obstructive sleep apnea) (Chronic) CKD (chronic kidney disease), stage IV (Chronic) Hypersomnolence (Chronic) Bilateral edema of lower extremity (Chronic) GERD (gastroesophageal reflux disease) (Chronic) Uncontrolled hypertension (Chronic) HLD (hyperlipidemia) (Chronic) untreated Type 2 diabetes mellitus treated with insulin (Chronic) Left carotid bruit (Chronic) Rheumatoid arthritis (Chronic) History of diverticulosis (Chronic) History of esophageal reflux (Chronic) Psoriasis (Chronic) Systolic hypertension with cerebrovascular disease (Chronic) multiple lacunar strokes related to HTN left tongue deviation Renal artery atherosclerosis (Chronic) moderate 3 renal arteries on left, anatomical variation Medical History: Medical History (Last Reviewed 12/08/18 @ 08:40 by Jessi Cardoza DO) CKD (chronic kidney disease), stage IV (Chronic) N18.4 Hypersomnolence (Chronic) G47.10 Bilateral edema of lower extremity (Chronic) R60.0 GERD (gastroesophageal reflux disease) (Chronic) K21.9 Uncontrolled hypertension (Chronic) I10 HLD (hyperlipidemia) (Chronic) E78.5 untreated Type 2 diabetes mellitus treated with insulin (Chronic) E11.9, Z79.4 Left carotid bruit (Chronic) R09.89 Rheumatoid arthritis (Chronic) M06.9 History of diverticulosis (Chronic) Z87.19 History of esophageal reflux (Chronic) Z87.19 Psoriasis (Chronic) L40.9 Systolic hypertension with cerebrovascular disease (Chronic) I67.4 multiple lacunar strokes related to HTN left tongue deviation Renal artery atherosclerosis (Chronic) I70.1 moderate 3 renal arteries on left, anatomical variation Chronic osteoarthritis M19.90 GERD (gastroesophageal reflux disease) K21.9 GERD (gastroesophageal reflux disease) K21.9 Hyperlipidemia E78.5 Hypertension I10 Neuropathy G62.9 kidney ds Acute on chronic diastolic (congestive) heart failure (Resolved) I50.33 HTN (hypertension), malignant (Resolved) I10 5 drug therapy Hx of mini strokes Allergies calcium Allergy (Unknown, Verified 12/08/18 05:17) constipation furosemide Allergy (Unknown, Verified 12/08/18 05:17) Constpation bumetanide Allergy (Verified 12/08/18 05:17) Unknown chlorthalidone Allergy (Verified 12/08/18 05:17) Unknown clonidine HCl [From Catapres] Allergy (Verified 12/08/18 05:17) Rash diltiazem Allergy (Verified 12/08/18 05:17) Unknown gemfibrozil Allergy (Verified 12/08/18 05:17) Unknown hydralazine [Hydralazine] Allergy (Verified 12/08/18 05:17) Swelling losartan [Losartan] Allergy (Verified 12/08/18 05:17) Unknown minoxidil Allergy (Verified 12/08/18 05:17) Unknown nifedipine Allergy (Verified 12/08/18 05:17) Unknown simvastatin [From Zocor] Allergy (Verified 12/08/18 05:17) Unknown triamterene [From Dyazide] Allergy (Verified 12/08/18 05:17) Unknown valdecoxib [From Bextra] Allergy (Verified 12/08/18 05:17) Unknown verapamil [Verapamil] Allergy (Verified 12/08/18 05:17) Unknown atorvastatin Adverse Reaction (Unknown, Verified 12/08/18 05:17) Swelling and cramping of the legs clonidine [From Catapres] Adverse Reaction (Unknown, Verified 12/08/18 05:17) Unknown esomeprazole [From Nexium] Adverse Reaction (Unknown, Verified 12/08/18 05:17) Swelling metformin [From Glucophage] Adverse Reaction (Unknown, Verified 12/08/18 05:17) Other kidney fxn worsened rosuvastatin [From Crestor] Adverse Reaction (Unknown, Verified 12/08/18 05:17) leg cramps/ swelling atorvastatin calcium [From Lipitor] Adverse Reaction (Verified 12/08/18 05:17) Leg cramps/aching celecoxib [From Celebrex] Adverse Reaction (Verified 12/08/18 05:17) Leg aching hydrochlorothiazide Adverse Reaction (Verified 12/08/18 05:17) Legs aching indapamide Adverse Reaction (Verified 12/08/18 05:17) Other insulin detemir [From Levemir] Adverse Reaction (Verified 12/08/18 05:17) Unknown lansoprazole [From Prevacid] Adverse Reaction (Verified 12/08/18 05:17) Legs aching metformin HCl [From Glucophage] Adverse Reaction (Verified 12/08/18 05:17) Diarrhea pravastatin Adverse Reaction (Verified 12/08/18 05:17) Legs aching rosuvastatin calcium [From Crestor] Adverse Reaction (Verified 12/08/18 05:17) Legs aching amiloride + hydrochlorothiazide Adverse Reaction (Unknown, Uncoded 12/08/18 05:17) Unknown Home Medications: Ambulatory Orders Medication Instructions Recorded Hydroxychloroquine [Plaquenil] 200 mg PO BIDCM 10/31/16 calcitriol 0.25 mcg capsule 0.25 mcg PO DAILY 11/01/17 tramadol 50 mg tablet 50 mg PO Q4H PRN PRN tab 11/01/17 coenzyme Q10 100 mg capsule 100 mg PO DAILY 02/13/18 doxazosin 4 mg tablet 2 mg PO QHS tab 10/21/18 Amlodipine Besylate 7 mg PO DAILY 12/08/18 Ascorbate Calcium [Calcium 500 mg PO DAILY 12/08/18 Ascorbate] Ascorbate Calcium/Bioflavonoid 500 mg PO DAILY 12/08/18 [Jeannette-C 500 mg Tablet] Aspirin [Aspirin, Baby] 81 mg PO DAILY@0800 12/08/18 Carvedilol 25 mg PO BID 12/08/18 Dextrose [Glucose] 4 gm PO PRN PRN 12/08/18 Ferrous Gluconate [Iron] 65 mg PO DAILY 12/08/18 Furosemide 40 mg PO DAILY 12/08/18 Glimepiride [Amaryl] 2 mg PO DAILY 12/08/18 Insulin Glargine,Hum.rec.anlog 35 unit SUBCUT DAILY 12/08/18 [Basaglar Kwikpen U-100] Lisinopril [Zestril] 40 mg PO QDAY 12/08/18 Omeprazole 20 mg PO BID 12/08/18 Sitagliptin Phosphate [Januvia] 50 mg PO DAILY 12/08/18 Spironolactone 50 mg PO DAILY 12/08/18 Surgical History: Surgical History (Last Reviewed 12/08/18 @ 08:40 by Jessi Cardoza DO) History of appendectomy Z90.49 S/P breast lumpectomy Z98.890 benign gallbladder removed surgery on finger due to infection Surgical History: appendectomy, cholecystectomy Psychiatric History: 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psych hx 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 Lives: Spouse/ Significant Other Smoking Status: Never smoker Tobacco Use: Non-smoker Alcohol: None Drugs: None - *Family History Maternal Family History: Family History (Last Reviewed 12/08/18 @ 08:41 by Jessi Cardoza DO) Mother Diabetes Heart disease CVA (cerebral vascular accident) Myocardial infarction Father Cancer Brother Kidney disease Sister Diabetes Hypertension Mother Diabetes Heart disease CVA (cerebral vascular accident) Myocardial infarction Father Cancer Sister Hypertension Diabetes History Items: 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history Review of Systems Constitutional: Denies: Chills, Fever, Weight Change HEENT: Denies: Head Aches, Nasal Congestion, Sinus Congestion, Sinus Drainage, Sore Throat Cardiovascular: Reports: Chest Pain, Edema, Palpitations - she has these occasionally but she had no Palpitations with the chest pain today. Denies: Light Headedness, Orthopnea, Paroxysmal Noc. Dyspnea, Syncope Respiratory: Reports: Cough - dry cough with occasional wheezing. Denies any hx of asthma or COPD. Denies: Shortness of breath at rest, Sputum production Gastrointestinal: Denies: Abdominal Pain, Nausea, Vomiting Genitourinary: Denies: Dysuria Musculoskeletal: Reports: Joint Tenderness. Denies: Joint Pain, Leg Pain Skin: Denies: Rash, Wounds Neurological: Reports: Numbness - inher feet. Denies: Focal weakness, Tingling Psychiatric: Denies: Anxiety, Depression, Homicidal Ideations, Suicidal Ideations Endocrine: Denies: Hx of Thyroiditis Hematologic/ Lymphatic: Denies: Easy Bruising, Easy Bleeding, Hx of blood clot VTE Information - Inpt Only VTE Present on Admission: No VTE Mechan Device Prophylaxis: SCD's, Knee High JOANNA Hose VTE Pharm Prophylaxis ordered?: Yes Patient Problems: Active and Suspected Problems (Last Reviewed 12/08/18 @ 08:40 by Jessi Cardoza DO) Chest pain (Acute) - Physical Exam General: Alert, Oriented x3, Cooperative, No apparent distress, Well developed, Well nourished HEENT: Atraumatic, PERRLA, EOMI, Normocephalic Oral: Dry Mucosa, - - Tongue deviates left Neck: Supple, No JVD, Negative Carotid Bruits, No Nodes, Trachea Midline, - - Brisk carotid upstroke with good pulse volume Lungs: Clear to auscultation, No rhonchi, No wheeze, No rales, Diminished Cardiovascular: Regular rate, Regular Rhythm, Normal S1, Normal S2, No murmurs, No rub noted, No Gallop Abdomen: Bowel Sounds Present, Soft, Non Tender, Non-Distended, No Hepato-splenomegaly Extremities: No clubbing, No cyanosis, No edema, Capillary Refill Less than 3 Seconds, No Calf Tenderness, Peripheral Pulses Normal Skin: No rashes, No breakdown Musculoskeletal: No Tenderness to Palpation of Joints or Extremities Neurological: Cranial nerves II-XII grossly intact, Neuro grossly intact Psych/Mental Status: Normal Affect, Appropriate Vital Signs Temp Pulse Resp BP Pulse Ox 98.4 F 61 15 206/61 H 98 12/08/18 05:13 12/08/18 07:04 12/08/18 07:04 12/08/18 07:04 12/08/18 07:04 Oxygen Flow Rate (L/min) 2 Oxygen Delivery Method Room Air Weight: 217 lb 6.012 oz Body Mass Index (BMI) 37.3 Finger Stick Blood Glucose 175 Laboratory Tests Past 24 Hrs 12/08/18 12/08/18 05:20 05:20 WBC 9.3 RBC 3.13 L Hgb 9.4 L Hct 28.5 L MCV 91.1 MCH 30.0 MCHC 33.0 RDW Std Deviation 43.7 RDW Coeff of Pepe 13.2 Plt Count 155 MPV 10.7 Immature Gran % (Auto) 0.500 Neut % (Auto) 64.6 Lymph % (Auto) 19.7 Glasscock % (Auto) 9.5 Eos % (Auto) 5.4 H Baso % (Auto) 0.3 Absolute Neuts (auto) 6.0 Absolute Lymphs (auto) 1.84 Nucleated RBC % 0 Sodium 146 H Potassium 4.1 Chloride 114 H Carbon Dioxide 23.0 Anion Gap 9 BUN 30 H Creatinine 2.05 H Estim Creat Clear Calc 20.52 Est GFR (MDRD) Af Amer 31 L Est GFR (MDRD) Non-Af 25 L BUN/Creatinine Ratio 14.6 Glucose 89 Calcium 8.4 L Troponin I < 0.015 Assessment/Plan All Active Problems (Last Reviewed 12/08/18 @ 08:40 by Jessi Cardoza DO) Chest pain (Acute) Cough (Acute) Acute on chronic diastolic (congestive) heart failure (Resolved) HTN (hypertension), malignant (Resolved) Impressions 1. Atypical chest pain in a patient with multiple risk factors for coronary artery disease and a heart score of 5. EKG revealed no ischemic changes and no ST elevation. Initial troponin was less than 0.015. Echocardiogram has been ordered. Dr. Lovelace was consulted. If serial CE's are negative will order Dobutamine stress ECHO for the AM. 2. Normochromic normocytic anemia-possibly secondary to stage IV chronic renal failure 3. Hypernatremia 4. Diabetes mellitus type 2 5. KHANG-compliant with BiPAP 6. Hyperlipidemia-LDL is 110 with an low HDL of 44 - her heart score is 5 and ASCVD risk calculator shows a 10 year risk of cardiac events of almost 30 %. Started on Atorvastatin 10 mg....she is agreeable to this. 7. Pulmonary hypertension with a PA systolic estimated at 53 consistent with moderate pulmonary hypertension. Followed by Dr. Amaro 8. Chronic renal failure stage IV-follows with Dr. Ivanna Aguilar 9. GERD 10. Uncontrolled hypertension 11. Rheumatoid arthritis-follows with Dr. flood and is on Plaquenil 200 mg twice daily 12. Morbid obesity 13. Chronic diastolic congestive heart failure-follows with Dr. Hui Code Visit OBSV E&M: [id number] Initial observation care L3
--- NOTE | 2018-12-08 08:27 | STE_ITS ---
Reason For Study: Chest Pain Stress Results Protocol: Dobutamine Stress Echo Maximum Predicted HR: 148 bpm Target HR: 126 bpm % Maximum Predicted HR: 67 % Heart Stage Duration Rate BP Comment (mm:ss) (bpm) BP 182/74 Prior to Test, NTG 0.4 MG Given SL X 1, BP after NTG 150/60; Test Began, BP Increased to 250/70 at 30 MCGS Dobutamine; Test Stopped Baseline 72 148/60and Hydralazine 10 MG Given IVP Per Order; BP Prior to Resuming Test was 148/60. Dobutamine Restarted at 10 MCGS DSE 10 MCG 3:00 76 158/60No Chest Pain DSE 20 MCG 3:00 86 184/52No Chest Pain DSE 30 MCG 3:37 99 182/60No Chest Pain; Mild Headache DSE 40 MCG 1:50 86 240/64No Chest Pain; Moderate Headache; Atropine 0.5 MG Given IVP Recovery 83 164/62No Chest Pain; No Headache Stress Duration: 11:27 mm:ss Maximum Stress HR: 99 bpm METS: 1 Baseline Echocardiogram Findings The estimated ejection fraction is 65 %. Stress Echo Wall motion Data Resting WM Intermediate WM Stress WM Resting Wall Motion Wall Motion Stress No regional wall motion No regional wall motion abnormalities noted. abnormalities noted. EKG Data The baseline ECG displays normal sinus rhythm. The patient was titrated from 10 mcg to a maximum of 40 mcg of dobutamine during the stress. The maximum heart rate attained was 100 beats per minute. This was 67% of maximum predicted heart rate. During dobutamine infusion, there were no ST or T wave changes noted to suggest ischemia. No clinical angina was noted. Interpretation Summary The estimated ejection fraction is 65 %. Normal, adequate, dobutamine echocardiogram. Negative for ischemia by EKG and echocardiographic criteria. No anginal symptoms noted. Rare PVCs noted. Hypertensive blood pressure response to dobutamine despite sublingual nitroglycerin and IV hydralazine. Although the patient's heart rate did not reach target, heart rate pressure product of 21,120 demonstrates an adequate test. Test terminated due to exaggerated and hypertensive blood pressure response to dobutamine. Final LVEF is 75%. Patient tolerated procedure well. Ordering Physician: Arleen Cardoza Referring Physician: Richi Lovelace Performed By: Ruby Wood RDCS, RVT
[2018-12-08 08:57] LABS: Hemoglobin A1c 7.3 % (4.2-6.3)
[2018-12-08 09:01] LABS: Cholesterol 179 mg/dL (200); High Density Lipoprotein 44 mg/dL; Triglycerides 125 mg/dL; Very Low Density Lipoprotein 25 mg/dL (5-40)
--- NOTE | 2018-12-08 10:03 | CASEMGMT ---
POA form scanned into summary tab of echart. Pt does not have a separate living will but the living will provisions are addressed in pt's POA form. Pt has Marcos Hobson listed as Healthcare POA. [facility]
--- NOTE | 2018-12-08 11:39 | CON.PCM_ITS ---
Problem List (1) Chest pain Status: Acute (2) Morbid obesity Status: Chronic Comment: BMI 39 on 12/08/18 (3) Chronic diastolic (congestive) heart failure Status: Chronic (4) Pulmonary hypertension Status: Chronic Comment: RVSP 53 (5) Bilateral edema of lower extremity Status: Chronic (6) KHANG (obstructive sleep apnea) Status: Chronic (7) Type 2 diabetes mellitus treated with insulin Status: Chronic (8) Systolic hypertension with cerebrovascular disease Status: Chronic Comment: multiple lacunar strokes related to HTN left tongue deviation Reason for Consult Date of Consultation: 12/08/18 Reason for Consultation: Chest pain, dyspnea on exertion, shortness of breath, diabetes, chronic renal insufficiency, morbid obesity, obstructive sleep apnea History of Present Illness: The patient is a 73 year old F with a history of morbid obesity, diabetes, h ypertension, hypercholesterolemia, no previous known coronary artery disease, markedly decreased DLCO, previous TIA with complete resolution several years ago, previously seen by Dr. Hui. Patient was in good health up until around 3 AM this morning when she went up to go to the bathroom, came back to her bed and developed midsternal chest pressure which was described as a dullness and heaviness, nonradiating, with no associated shortness of breath or dyspnea on exertion. When this did not improve she came to the emergency room for further evaluation. Upon arrival her EKG was performed which showed normal sinus rhythm, no acute changes. Her initial troponin was negative. Her chest x-ray was negative. Her most recent echocardiogram was in 2016 which showed normal intact LV function w ith an EF of 65% and at least moderate pulmonary hypertension with an RVSP of 53 mmHg. I see no old stress test in the computer in the recent past. On further history the patient reports that over the last month she has had progressively worsening dyspnea on exertion walking on a flat surface. She is unable to walk upstairs due to her arthritis. She denies any exertional chest pain or anginal symptoms. She has never had a coronary catheterization. She reports that she is compliant with her CPAP on a regular basis and sees Dr. Amaro as an outpatient. Her most recent PFTs as of 09/16/2018 are as follows: Mild restrictive ventilatory defect with a severe reduction in diffusing capacity and significant worsening compared to previous study. The patient is compliant with her medications, and unfortunately is unable to take statins or gemfibrozil. [] Past Medical History Allergies/Adverse Reactions: Allergies calcium Allergy (Unknown, Verified 12/08/18 05:17) constipation furosemide Allergy (Unknown, Verified 12/08/18 05:17) Constpation bumetanide Allergy (Verified 12/08/18 05:17) Unknown chlorthalidone Allergy (Verified 12/08/18 05:17) Unknown clonidine HCl [From Catapres] Allergy (Verified 12/08/18 05:17) Rash diltiazem Allergy (Verified 12/08/18 05:17) Unknown gemfibrozil Allergy (Verified 12/08/18 05:17) Unknown hydralazine [Hydralazine] Allergy (Verified 12/08/18 05:17) Swelling losartan [Losartan] Allergy (Verified 12/08/18 05:17) Unknown minoxidil Allergy (Verified 12/08/18 05:17) Unknown nifedipine Allergy (Verified 12/08/18 05:17) Unknown simvastatin [From Zocor] Allergy (Verified 12/08/18 05:17) Unknown triamterene [From Dyazide] Allergy (Verified 12/08/18 05:17) Unknown valdecoxib [From Bextra] Allergy (Verified 12/08/18 05:17) Unknown verapamil [Verapamil] Allergy (Verified 12/08/18 05:17) Unknown atorvastatin Adverse Reaction (Unknown, Verified 12/08/18 05:17) Swelling and cramping of the legs clonidine [From Catapres] Adverse Reaction (Unknown, Verified 12/08/18 05:17) Unknown esomeprazole [From Nexium] Adverse Reaction (Unknown, Verified 12/08/18 05:17) Swelling metformin [From Glucophage] Adverse Reaction (Unknown, Verified 12/08/18 05:17) Other kidney fxn worsened rosuvastatin [From Crestor] Adverse Reaction (Unknown, Verified 12/08/18 05:17) leg cramps/ swelling atorvastatin calcium [From Lipitor] Adverse Reaction (Verified 12/08/18 05:17) Leg cramps/aching celecoxib [From Celebrex] Adverse Reaction (Verified 12/08/18 05:17) Leg aching hydrochlorothiazide Adverse Reaction (Verified 12/08/18 05:17) Legs aching indapamide Adverse Reaction (Verified 12/08/18 05:17) Other insulin detemir [From Levemir] Adverse Reaction (Verified 12/08/18 05:17) Unknown lansoprazole [From Prevacid] Adverse Reaction (Verified 12/08/18 05:17) Legs aching metformin HCl [From Glucophage] Adverse Reaction (Verified 12/08/18 05:17) Diarrhea pravastatin Adverse Reaction (Verified 12/08/18 05:17) Legs aching rosuvastatin calcium [From Crestor] Adverse Reaction (Verified 12/08/18 05:17) Legs aching amiloride + hydrochlorothiazide Adverse Reaction (Unknown, Uncoded 12/08/18 05:17) Unknown Home Medications: Ambulatory Orders Medication Instructions Recorded Hydroxychloroquine [Plaquenil] 200 mg PO BIDCM 10/31/16 calcitriol 0.25 mcg capsule 0.25 mcg PO DAILY 11/01/17 tramadol 50 mg tablet 50 mg PO Q4H PRN PRN tab 11/01/17 coenzyme Q10 100 mg capsule 100 mg PO DAILY 02/13/18 doxazosin 4 mg tablet 2 mg PO QHS tab 10/21/18 Amlodipine Besylate 7 mg PO DAILY 12/08/18 Ascorbate Calcium [Calcium 500 mg PO DAILY 12/08/18 Ascorbate] Ascorbate Calcium/Bioflavonoid 500 mg PO DAILY 12/08/18 [Jeannette-C 500 mg Tablet] Aspirin [Aspirin, Baby] 81 mg PO DAILY@0800 12/08/18 Carvedilol 25 mg PO BID 12/08/18 Dextrose [Glucose] 4 gm PO PRN PRN 12/08/18 Ferrous Gluconate [Iron] 65 mg PO DAILY 12/08/18 Furosemide 40 mg PO DAILY 12/08/18 Glimepiride [Amaryl] 2 mg PO DAILY 12/08/18 Insulin Glargine,Hum.rec.anlog 35 unit SUBCUT DAILY 12/08/18 [Basaglar Kwikpen U-100] Lisinopril [Zestril] 40 mg PO QDAY 12/08/18 Omeprazole 20 mg PO BID 12/08/18 Sitagliptin Phosphate [Januvia] 50 mg PO DAILY 12/08/18 Spironolactone 50 mg PO DAILY 12/08/18 Past Medical History (Chronic Problems): Chronic Problems (Last Reviewed 12/08/18 @ 08:40 by Jessi Cardoza DO) Chronic renal failure, stage 4 (severe) (Chronic) Morbid obesity (Chronic) BMI 39 on 12/08/18 Chronic diastolic (congestive) heart failure (Chronic) Pulmonary hypertension (Chronic) RVSP 53 Bilateral edema of lower extremity (Chronic) KHANG (obstructive sleep apnea) (Chronic) CKD (chronic kidney disease), stage IV (Chronic) Hypersomnolence (Chronic) Bilateral edema of lower extremity (Chronic) GERD (gastroesophageal reflux disease) (Chronic) Uncontrolled hypertension (Chronic) HLD (hyperlipidemia) (Chronic) untreated Type 2 diabetes mellitus treated with insulin (Chronic) Left carotid bruit (Chronic) Rheumatoid arthritis (Chronic) History of diverticulosis (Chronic) History of esophageal reflux (Chronic) Psoriasis (Chronic) Systolic hypertension with cerebrovascular disease (Chronic) multiple lacunar strokes related to HTN left tongue deviation Renal artery atherosclerosis (Chronic) moderate 3 renal arteries on left, anatomical variation Surgical History: appendectomy, cholecystectomy Psychiatric History: 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: 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 - *Family History Maternal Family History: Family History (Last Reviewed 12/08/18 @ 08:41 by Jessi Cardoza DO) Mother Diabetes Heart disease CVA (cerebral vascular accident) Myocardial infarction Father Cancer Brother Kidney disease Sister Diabetes Hypertension Mother Diabetes Heart disease CVA (cerebral vascular accident) Myocardial infarction Father Cancer Sister Hypertension Diabetes History Items: 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history Lives: Spouse/ Significant Other Smoking Status: Never smoker Tobacco Use: Non-smoker Alcohol: None Drugs: None Review of Systems - Review of Systems General: Denies: Fever, Night Sweats, Fatigue Cardiovascular: Reports: Chest Discomfort, Chest Discomfort at Rest, Shortness of Breath, Shortness of Breath with Exertion, Peripheral Edema. Denies: Orthopnea, PND, Palpitations, Lightheadedness, Dizziness, Near Syncope, Syncope Respiratory: Denies: Cough, Sputum Production, Hemoptysis Gastrointestinal: Denies: Hematemesis, Hematochezia, Melena Genitourinary: Denies: Dysuria, Hematuria Skin: Denies: Rash Subjectve: Patient is resting comfortably, no acute distress. Objective: Vital Signs Temp Pulse Resp BP Pulse Ox 98.4 F 65 15 206/61 H 98 12/08/18 05:13 12/08/18 08:05 12/08/18 07:04 12/08/18 07:04 12/08/18 07:04 Oxygen Flow Rate (L/min) 2 Oxygen Delivery Method Room Air Weight: 217 lb 6.012 oz Body Mass Index (BMI) 37.3 Finger Stick Blood Glucose 175 General: Awake, Alert, Oriented x 3 HEENT: PERRL, EOMI, Sclera Non Icteric Neck: Supple, Good ROM, No Lymph Node Enlargement Lungs: Clear to auscultation Cardiovascular: Regular Rhythm, Normal S2, No Rubs, No Gallops Murmur Murmur: Grade 2/6, Holosystolic Vascular: No Carotid Bruits, Normal Femoral Pulses, Normal Radial Pulses, Normal Dorsalis Pedal Pulse, Normal Posterior Tibial Pulses Abdomen: Bowel Sounds Present, Soft, Non Tender, No HSM, No Organomegaly Extremities: No Cyanosis, No Clubbing, No edema Neurological: No Focal Motor or Sensory Deficit 12/08/18 05:20: WBC 9.3, RBC 3.13 L, Hgb 9.4 L, Hct 28.5 L, MCV 91.1, MCH 30.0, MCHC 33.0, Plt Count 155, MPV 10.7, Immature Gran % (Auto) 0.500, Neut % (Auto) 64.6, Lymph % (Auto) 19.7, Ritchie % (Auto) 9.5, Eos % (Auto) 5.4 H, Baso % (Auto) 0.3, Absolute Neuts (auto) 6.0, Nucleated RBC % 0 12/08/18 05:20: Sodium 146 H, Potassium 4.1, Chloride 114 H, Carbon Dioxide 23.0, Anion Gap 9, BUN 30 H, Creatinine 2.05 H, Est GFR (MDRD) Af Amer 31 L, Est GFR (MDRD) Non-Af 25 L, BUN/Creatinine Ratio 14.6, Glucose 89, Calcium 8.4 L, Troponin I < 0.015 12/08/18 08:24: Troponin I < 0.015 12/08/18 08:24: Triglycerides 125, Cholesterol 179, LDL Cholesterol 110, VLDL Cholesterol 25, HDL Cholesterol 44 12/08/18 08:24: Hemoglobin A1c 7.3 H Rhythm: EKG: ECHO: Stress Test: Cardiac Cath: PCI: CT Surgery: Holter monitor: EPS: PPM: CXR: Chest CT Scan: Assessment/Plan 1. New onset chest pain: The patient has new onset midsternal chest pain which is nonradiating and no associated shortness of breath, diaphoresis. Her EKG is unremarkable and shows no dynamic changes. Her initial troponin is negative and we are awaiting a second 1. Her most recent echocardiogram from 08/20/2018 shows intact LV function with an EF of 65% and an RVSP of approximately 53 mmHg consistent with at least moderate pulmonary hypertension. I recommend the patient undergo a non-walking dobutamine echocardiogram to assess for possible ischemia given her chest pain and her risk factors. If this is grossly abnormal for ischemia, the patient may require diagnostic coronary a ngiogram as well as a right heart catheterization to confirm her pulmonary pressures. If however it is negative for inducible ischemia, I would recommend continuing baby aspirin, spironolactone, Lasix, Coreg, and lisinopril. We may want to consider discontinuation of her amlodipine as it may be contributing to her lower extremity edema, and switching her to Imdur 30 mg p.o. daily for systemic hypertension and pulmonary arterial hypertension control. If the patient requires a catheterization she will need to be loaded with 300 mg of Plavix x1 followed by 75 mg p.o. daily. 2. Pulmonary hypertension: The patient has at least moderate pulmonary hypertension by echocardiogram which may be a combination of her obstructive sleep apnea and acutely reduced DLCO on PFTs. Again she may benefit from discontinuation of amlodipine and switching to Fish is a pulmonary vasodilator. 3. Hyperlipidemia: Unfortunately the patient is unable to tolerate statins or gemfibrozil. Continue therapeutic lifestyle changes. 4. Thank you very much for the opportunity to precipitate in the cardiac care of your patient. Consultation time took place between 830 and 9 AM. 5. If the patient's stress test is negative for inducible ischemia, she may be discharged home to follow up with Dr. Hui. Code Visit Inpatient E&M: 20137 Init Hosp L2
[2018-12-08] MEDS: amLODIPine 5 MG Tablet PO (11:54)
[2018-12-08] MEDS: Pantoprazole Sodium 20 MG Tablet PO ×2 (11:54→22:30)
[2018-12-08] MEDS: hydrALAZINE 50 MG Tablet PO (11:57)
[2018-12-08] MEDS: Aspirin E.C. 81 MG Tablet PO (11:57)
[2018-12-08 12:06] LABS: Bedside Glucose 169 mg/dL (70-110)
[2018-12-08] MEDS: Carvedilol 25 MG Tablet PO ×2 (15:03→22:30)
[2018-12-08] MEDS: Hydroxychloroquine 200 MG Tablet PO (16:35)
[2018-12-08 16:45] LABS: Bedside Glucose 113 mg/dL (70-110)
[2018-12-08] MEDS: Furosemide 40 MG Tablet PO (17:53)
[2018-12-08] MEDS: Isosorbide Mononitrate 30 MG Tablet PO (17:53)
[2018-12-08] MEDS: Doxazosin 4 MG Tablet PO (22:30)
[2018-12-08] MEDS: Atorvastatin Calcium 10 MG Tablet PO (22:30)
[2018-12-08] MEDS: hydrALAZINE 50 MG Tablet 100 MG PO (22:31)
[2018-12-08 22:45] LABS: Bedside Glucose 169 mg/dL (70-110)
[2018-12-09] VITALS (8 sets, daily range): BP systolic 156–175; BP diastolic 48–66; PULSE 62–76; RESP 18; TEMP 36.7–37.4; O2SAT 98–99
[2018-12-09] MEDS: hydrALAZINE 50 MG Tablet 100 MG PO ×2 (04:59→13:29)
[2018-12-09 07:16] LABS: Bedside Glucose 158 mg/dL (70-110)
[2018-12-09] MEDS: Calcitriol 0.25 MCG Capsule PO (08:17)
[2018-12-09] MEDS: Lisinopril 40 MG Tablet PO (08:17)
[2018-12-09] MEDS: LINAGLIPTIN 5 MG TABLET PO (08:17)
[2018-12-09] MEDS: Glimepiride 2 MG Tablet PO (08:17)
[2018-12-09] MEDS: Furosemide 40 MG Tablet PO (08:17)
[2018-12-09] MEDS: Aspirin E.C. 81 MG Tablet PO (08:17)
[2018-12-09] MEDS: Pantoprazole Sodium 20 MG Tablet PO (08:17)
[2018-12-09] MEDS: Hydroxychloroquine 200 MG Tablet PO (08:18)
[2018-12-09] MEDS: Carvedilol 25 MG Tablet PO (08:18)
[2018-12-09] MEDS: Isosorbide Mononitrate 30 MG Tablet PO (08:18)
--- NOTE | 2018-12-09 09:00 | PCM.PN.CARD ---
Subjectve: Patient feeling much better this morning after blood pressure has been better controlled. No 24-hour events. Telemetry negative. Objective: Vital Signs Temp Pulse Resp BP Pulse Ox 98.1 F 76 18 156/48 H 98 12/09/18 08:06 12/09/18 08:06 12/09/18 08:06 12/09/18 08:06 12/09/18 08:06 Oxygen Flow Rate (L/min) 2 Oxygen Delivery Method Room Air Weight: 217 lb 6.012 oz Body Mass Index (BMI) 37.3 Finger Stick Blood Glucose 175 Intake and Output for Last 24 Hours 12/07/18 12/08/18 12/09/18 23:59 23:59 23:59 Intake Total 810 / 1050 240 / 240 Balance 810 / 1050 240 / 240 General: Awake, Alert, Oriented x 3 HEENT: PERRL, EOMI, Sclera Non Icteric Neck: Supple, Good ROM, No Lymph Node Enlargement Lungs: Clear to auscultation Cardiovascular: Regular Rhythm, Normal S1, Normal S2, No Murmurs, No Rubs, No Gallops Vascular: No Carotid Bruits, Normal Femoral Pulses, Normal Radial Pulses, Normal Dorsalis Pedal Pulse, Normal Posterior Tibial Pulses Abdomen: Bowel Sounds Present, Soft, Non Tender, No HSM, No Organomegaly Extremities: No Cyanosis, No Clubbing, No edema Neurological: No Focal Motor or Sensory Deficit 12/08/18 08:24: Triglycerides 125, Cholesterol 179, LDL Cholesterol 110, VLDL Cholesterol 25, HDL Cholesterol 44 12/08/18 11:26: Troponin I < 0.015 Rhythm: EKG: ECHO: EF of 65%, RVSP of 53 mmHg. Stress Test: Negative for inducible ischemia despite not achieving heart rate, rate pressure product was adequate. Cardiac Cath: PCI: CT Surgery: Holter monitor: EPS: PPM: CXR: Chest CT Scan: Medical Necessity - Tobacco Use Smoking Status: Never smoker Tobacco Use: Non-smoker Assessment/Plan 1. New onset chest pain: The patient has new onset midsternal chest pain which is nonradiating and no associated shortness of breath, diaphoresis. Her EKG is unremarkable and shows no dynamic changes. Her initial troponin is negative times 2. Her most recent echocardiogram from 08/20/2018 shows intact LV function with an EF of 65% and an RVSP of approximately 53 mmHg consistent with at least moderate pulmonary hypertension. Patient underwent a dobutamine echocardiogram yesterday, with hypertensive blood pressure response to dobutamine despite sublingual nitroglycerin and IV hydralazine. Nonetheless her rate pressure product demonstrated that it was an adequate test, and she had no overt ischemia or chest pain symptoms during infusion. Therefore, I do not believe she requires a diagnostic coronary angiogram at this time. Once the patient is able to ambulate with adequate blood pressure control, she may be discharged home. 2. Pulmonary hypertension: The patient has at least moderate pulmonary hypertension by echocardiogram which may be a combination of her obstructive sleep apnea and acutely reduced DLCO on PFTs. Given her lower extremity edema, I recommend discontinuation of her amlodipine, and switching her to Imdur 30 mg p.o. daily and titrating up from there. In addition we will increase her lisinopril to 40 mg a day, increase Lasix to 40 mg p.o. twice daily, continue Coreg 25 mg p.o. twice daily, and hydralazine 100 mg 3 times daily for pulmonary and systemic vasodilatation. I believe a good portion of the patient's symptoms are related to significant systemic and pulmonary hypertension. I believe she already sees Dr. Amaro and may benefit from additional pulmonary vasodilatation therapy under his guidance. 3. Hyperlipidemia: Unfortunately the patient is unable to tolerate statins or gemfibrozil. Continue therapeutic lifestyle changes. 4. Thank you very much for the opportunity to precipitate in the cardiac care of your patient. Discussed with Dr. Cardoza. 5. She may be discharged home to follow up with Dr. Hui to discharge. Code Visit Inpatient E&M: 22210 Subs Hosp L2
--- NOTE | 2018-12-09 10:00 | CASEMGMT ---
Case Management Progress Note: This financial underwriter went to patient bedside, introduced self and role. Explained and reviewed with patient PADILLA form in regards to current treatment this hospital admission. Notified patient that outpatient billing is determined by her insurance policy and status during hospital stay is reviewed for changes in condition that may warrant inpatient stay. Patient states understanding and PADILLA form signed and placed in patient chart. Patient provided a copy of PADILLA form. Denies any questions or concerns at this time. Althea Gonzalez RNCM
[2018-12-09 11:50] LABS: Bedside Glucose 207 mg/dL (70-110)
--- NOTE | 2018-12-09 13:32 | PCM.DC ---
- Discharge Diagnoses Current Active Problems: Current Active and Chronic Problems (Last Reviewed 12/08/18 @ 08:40 by Jessi Cardoza DO) Chest pain (Acute) Chronic renal failure, stage 4 (severe) (Chronic) Morbid obesity (Chronic) BMI 39 on 12/08/18 Chronic diastolic (congestive) heart failure (Chronic) You will use the following diet at home:: Calorie/Carbohydrate Controlled (specify 1200, 1400, etc), Cardiac - low fat and low salt Your food should be the consistency of: Regular Your liquids should be the consistency of: Regular/Thin Discharge Activity: Return to Normal Activity, - - Try and exercise or 30 minutes 5 times a week. For people with arthritis who have trouble walking water exercise is very therapeutic because it offloads weight and takes the stress off the joints. You can swim at the high school or at the in [place] or exercise in the pool at [facility]. Another good exercise for people with arthritis is a Nu-step. This is a machine they have at health point that you sit on and push pedals and pull on handles with your arms......it is non-weight bearing. It will take a while to build your exercise tolerance up but, it will help control the blood sugars, help with weight loss and be good for your heart. I go there and there is a good crowd of us old folks on M, W, F and everyone is very nice. There are folks well into their 80's exercising.....that is how you get to be in your 80's and 90's/regular exercise. The memebership is not very expensive and some people have insurance that will pay for the membership. Call your doctor if you observe: Fever of 101 or Higher, Inability to urinate, Shortness of breath, Dizziness, Fainting spells, Chest pain Instructions: Aerobic Exercise for a Healthy Heart Additional Instructions: 1. Your heart squeezes well but it does not relax well.....this is called diastolic dysfunction and you have a history of diastolic congestive heart failure. It is very important to control the BP and get rid of excess fluid with diastolic CHF. Dr. Lovelace has increased the Lasix to twice a day and added a medication called Imdur to help with this. I started you on Hydralazine for BP and we discontinued the Amlodipine because a major side effect is to cause swelling in the legs. 2. The stress test was negative this time BUT, with DM, High LDL (bad cholesterol), uncontrolled high blood pressure, low HDL (good cholesterol and age your risk for having a cardiac event over the next 10 years is almost 30%. We have to do everything we can to prevent future cardiac events and strokes. This means good BS control, good BP control, weight loss and getting the LDL down to 70 or less. I have started you on a very low dose of Lipitor to get the LDL down. Dr. Wallis will want you recheck the cholesterol and the liver in about 6 weeks to see how the lipitor is working. Your BP is comiong down with the changes in the medications. You have not had any side effects yet with the chnages in the medications. If you think one of the medications is causing a side effect do NOT stop the medication without talking with Dr. Wallis first. Severe allergic reactions include rash and itching, SOB/wheezing and very low BP. Most of the medications that you list as allergies are not allergies, they are side effects of the drug. For instance Lasix causes constipation because it decreases the fluid in the body and this makes the stool hard and makes you constipated. this is not an allergy......this is just what happens with diuretics. To counterattack this you may need to start a stool softener like Miralax of Metamucil to help prevent constipation. Always discuss ANY problems you are having with medications with Dr. Wallis prior to stopping the medication......sometimes we will need to change the medication but, sometimes it is not a allergy and we can continue the medication. 4. Try and lose some weight. Even a 10 lb weight loss can bring the BP down. The process stripper's have a program at the hospital called [employer]. All you will need is a referral from Dr. Wallis to be seen. 5. You can do this.....commit to becoming more healthy so you can enjoy your rao years for many years to come. Pending Tests on Discharge: none Allergies/Adverse Reactions: Allergies calcium Allergy (Unknown, Verified 12/08/18 05:17) constipation furosemide Allergy (Unknown, Verified 12/08/18 05:17) Constpation bumetanide Allergy (Verified 12/08/18 05:17) Unknown chlorthalidone Allergy (Verified 12/08/18 05:17) Unknown clonidine HCl [From Catapres] Allergy (Verified 12/08/18 05:17) Rash diltiazem Allergy (Verified 12/08/18 05:17) Unknown gemfibrozil Allergy (Verified 12/08/18 05:17) Unknown hydralazine [Hydralazine] Allergy (Verified 12/08/18 05:17) Swelling losartan [Losartan] Allergy (Verified 12/08/18 05:17) Unknown minoxidil Allergy (Verified 12/08/18 05:17) Unknown nifedipine Allergy (Verified 12/08/18 05:17) Unknown simvastatin [From Zocor] Allergy (Verified 12/08/18 05:17) Unknown triamterene [From Dyazide] Allergy (Verified 12/08/18 05:17) Unknown valdecoxib [From Bextra] Allergy (Verified 12/08/18 05:17) Unknown verapamil [Verapamil] Allergy (Verified 12/08/18 05:17) Unknown atorvastatin Adverse Reaction (Unknown, Verified 12/08/18 05:17) Swelling and cramping of the legs clonidine [From Catapres] Adverse Reaction (Unknown, Verified 12/08/18 05:17) Unknown esomeprazole [From Nexium] Adverse Reaction (Unknown, Verified 12/08/18 05:17) Swelling metformin [From Glucophage] Adverse Reaction (Unknown, Verified 12/08/18 05:17) Other kidney fxn worsened rosuvastatin [From Crestor] Adverse Reaction (Unknown, Verified 12/08/18 05:17) leg cramps/ swelling atorvastatin calcium [From Lipitor] Adverse Reaction (Verified 12/08/18 05:17) Leg cramps/aching celecoxib [From Celebrex] Adverse Reaction (Verified 12/08/18 05:17) Leg aching hydrochlorothiazide Adverse Reaction (Verified 12/08/18 05:17) Legs aching indapamide Adverse Reaction (Verified 12/08/18 05:17) Other insulin detemir [From Levemir] Adverse Reaction (Verified 12/08/18 05:17) Unknown lansoprazole [From Prevacid] Adverse Reaction (Verified 12/08/18 05:17) Legs aching metformin HCl [From Glucophage] Adverse Reaction (Verified 12/08/18 05:17) Diarrhea pravastatin Adverse Reaction (Verified 12/08/18 05:17) Legs aching rosuvastatin calcium [From Crestor] Adverse Reaction (Verified 12/08/18 05:17) Legs aching amiloride + hydrochlorothiazide Adverse Reaction (Unknown, Uncoded 12/08/18 05:17) Unknown Medications to take at Discharge Hydroxychloroquine [Plaquenil] 200 mg PO BIDCM 10/31/16 calcitriol 0.25 mcg capsule 0.25 mcg PO DAILY 11/01/17 tramadol 50 mg tablet 50 mg PO Q4H PRN PRN tab 11/01/17 coenzyme Q10 100 mg capsule 100 mg PO DAILY 02/13/18 Ascorbate Calcium [Calcium Ascorbate] 500 mg PO DAILY 12/08/18 Ascorbate Calcium/Bioflavonoid [Jeannette-C 500 mg Tablet] 500 mg PO DAILY 12/08/18 Aspirin [Aspirin, Baby] 81 mg PO DAILY@0800 12/08/18 Carvedilol 25 mg PO BID 12/08/18 Dextrose [Glucose] 4 gm PO PRN PRN 12/08/18 Ferrous Gluconate [Iron] 65 mg PO DAILY 12/08/18 Glimepiride [Amaryl] 2 mg PO DAILY 12/08/18 Insulin Glargine,Hum.rec.anlog [Basaglar Kwikpen U-100] 35 unit SUBCUT DAILY 12/08/18 Lisinopril [Zestril] 40 mg PO QDAY 12/08/18 Omeprazole 20 mg PO BID 12/08/18 Sitagliptin Phosphate [Januvia] 50 mg PO DAILY 12/08/18 Spironolactone 50 mg PO DAILY 12/08/18 Atorvastatin Calcium [Lipitor] 10 mg PO QHS #30 tab 12/09/18 Doxazosin Mesylate 4 mg PO QHS #0 tab 12/09/18 Furosemide [Lasix] 40 mg PO BID@1000,1800 #60 tab 12/09/18 Hydralazine HCl 100 mg PO TID #90 tab 12/09/18 Isosorbide Mononitrate [Imdur] 30 mg PO DAILY #30 tab 12/09/18 The following prescriptions were given: Hydralazine HCl 100 mg PO TID #90 tab Transmission Status: Pending to [id number] Isosorbide Mononitrate [Imdur] 30 mg PO DAILY #30 tab Transmission Status: Pending to [id number] Furosemide [Lasix] 40 mg PO BID@1000,1800 #60 tab Transmission Status: Pending to [id number] Atorvastatin Calcium [Lipitor] 10 mg PO QHS #30 tab Transmission Status: Pending to [id number] Primary Care Physician: Hamzah Wallis MD [Primary Care Provider] - Please follow up with your Primary Care Physician in: 1 week Test Results: Test results from this visit will be discussed in further detail at your follow-up appointment, if applicable. Please Follow Up With: Clifford Hui MD When: 1 month Proposed Discharge Date: 12/09/18
--- NOTE | 2018-12-09 14:01 | DS.PCM_ITS ---
Discharge Date and Diagnosis - Problem List Patient Problems: Active and Suspected Problems (Last Reviewed 12/08/18 @ 08:40 by Jessi Cardoza DO) Chest pain (Acute) Date of Admission: 12/08/18 Date of Discharge: 12/09/18 - Primary Discharge Diagnosis Active and Suspected Problems (Last Reviewed 12/08/18 @ 08:40 by Jessi Cardoza DO) Chest pain (Acute) - Secondary Discharge Diagnosis Chronic Problems (Last Reviewed 12/08/18 @ 08:40 by Jessi Cardoza DO) Chronic renal failure, stage 4 (severe) (Chronic) Morbid obesity (Chronic) BMI 39 on 12/08/18 Chronic diastolic (congestive) heart failure (Chronic) Pulmonary hypertension (Chronic) RVSP 53 KHANG (obstructive sleep apnea) (Chronic) Hypersomnolence (Chronic) Bilateral edema of lower extremity (Chronic) GERD (gastroesophageal reflux disease) (Chronic) Uncontrolled hypertension (Chronic) HLD (hyperlipidemia) (Chronic) Type 2 diabetes mellitus treated with insulin (Chronic) Left carotid bruit (Chronic) Rheumatoid arthritis (Chronic) History of diverticulosis (Chronic) Psoriasis (Chronic) Systolic hypertension with cerebrovascular disease (Chronic) multiple lacunar strokes related to HTN left tongue deviation Renal artery atherosclerosis (Chronic) moderate 3 renal arteries on left, anatomical variation Hospital Course and Treatment Imaging Results: Clinical Impression(s) from Imaging Studies Chest X-Ray 12/08/18 05:33 IMPRESSION: Stable cardiomegaly Electronically Signed: Aaron Yeh, at 5:57 EDT Tel , Service support , Laboratory Tests 12/09/18 12/09/18 12/08/18 Range/Units 11:44 06:47 22:27 WBC (4.4-11.0) K/mm3 RBC (4.2-5.4) M/mm3 Hgb (12.0-15.0) g/dL Hct (37-47) % MCV (81-99) fL MCH (27.0-32.0) pg MCHC (32-36) g/dL RDW Std Deviation (35.1-43.9) fl RDW Coeff of Pepe (11.6-14.6) % Plt Count (150-450) K/mm3 MPV (6.2-12.0) fl Immature Gran % (Auto) (0.0-0.9) % Neut % (Auto) (47-70) % Lymph % (Auto) (19-41) % Harris % (Auto) (0-10) % Eos % (Auto) (0-5) % Baso % (Auto) (0-1) % Absolute Neuts (auto) (2.0-7.7) X10^3/uL Absolute Lymphs (auto) (0.83-4.51) X10^3/uL Nucleated RBC % (0-5) % Sodium (136-145) mmol/L Potassium (3.5-5.1) mmol/L Chloride (98-107) mmol/L Carbon Dioxide (21.0-32.0) mmol/L Anion Gap (5-15) BUN (7-18) mg/dL Creatinine (0.55-1.02) mg/dL Estim Creat Clear Calc ml/min Est GFR (MDRD) Af Amer (>60) mL/min Est GFR (MDRD) Non-Af (>60) mL/min BUN/Creatinine Ratio (10-20) RATIO Glucose (74-106) mg/dL Hemoglobin A1c (4.2-6.3) % Calcium (8.5-10.1) mg/dL Troponin I (<0.045) ng/mL Triglycerides ( - 199) mg/dL Cholesterol (200) mg/dL LDL Cholesterol (0-130) mg/dL VLDL Cholesterol (5-40) mg/dL HDL Cholesterol (40 - ) mg/dL POC Glucose 207 H 158 H 169 H (70-110) mg/dL 12/08/18 12/08/18 12/08/18 Range/Units 16:34 12:02 11:26 WBC (4.4-11.0) K/mm3 RBC (4.2-5.4) M/mm3 Hgb (12.0-15.0) g/dL Hct (37-47) % MCV (81-99) fL MCH (27.0-32.0) pg MCHC (32-36) g/dL RDW Std Deviation (35.1-43.9) fl RDW Coeff of Pepe (11.6-14.6) % Plt Count (150-450) K/mm3 MPV (6.2-12.0) fl Immature Gran % (Auto) (0.0-0.9) % Neut % (Auto) (47-70) % Lymph % (Auto) (19-41) % Harris % (Auto) (0-10) % Eos % (Auto) (0-5) % Baso % (Auto) (0-1) % Absolute Neuts (auto) (2.0-7.7) X10^3/uL Absolute Lymphs (auto) (0.83-4.51) X10^3/uL Nucleated RBC % (0-5) % Sodium (136-145) mmol/L Potassium (3.5-5.1) mmol/L Chloride (98-107) mmol/L Carbon Dioxide (21.0-32.0) mmol/L Anion Gap (5-15) BUN (7-18) mg/dL Creatinine (0.55-1.02) mg/dL Estim Creat Clear Calc ml/min Est GFR (MDRD) Af Amer (>60) mL/min Est GFR (MDRD) Non-Af (>60) mL/min BUN/Creatinine Ratio (10-20) RATIO Glucose (74-106) mg/dL Hemoglobin A1c (4.2-6.3) % Calcium (8.5-10.1) mg/dL Troponin I < 0.015 (<0.045) ng/mL Triglycerides ( - 199) mg/dL Cholesterol (200) mg/dL LDL Cholesterol (0-130) mg/dL VLDL Cholesterol (5-40) mg/dL HDL Cholesterol (40 - ) mg/dL POC Glucose 113 H 169 H (70-110) mg/dL 12/08/18 12/08/18 12/08/18 Range/Units 08:24 08:24 08:24 WBC (4.4-11.0) K/mm3 RBC (4.2-5.4) M/mm3 Hgb (12.0-15.0) g/dL Hct (37-47) % MCV (81-99) fL MCH (27.0-32.0) pg MCHC (32-36) g/dL RDW Std Deviation (35.1-43.9) fl RDW Coeff of Pepe (11.6-14.6) % Plt Count (150-450) K/mm3 MPV (6.2-12.0) fl Immature Gran % (Auto) (0.0-0.9) % Neut % (Auto) (47-70) % Lymph % (Auto) (19-41) % Harris % (Auto) (0-10) % Eos % (Auto) (0-5) % Baso % (Auto) (0-1) % Absolute Neuts (auto) (2.0-7.7) X10^3/uL Absolute Lymphs (auto) (0.83-4.51) X10^3/uL Nucleated RBC % (0-5) % Sodium (136-145) mmol/L Potassium (3.5-5.1) mmol/L Chloride (98-107) mmol/L Carbon Dioxide (21.0-32.0) mmol/L Anion Gap (5-15) BUN (7-18) mg/dL Creatinine (0.55-1.02) mg/dL Estim Creat Clear Calc ml/min Est GFR (MDRD) Af Amer (>60) mL/min Est GFR (MDRD) Non-Af (>60) mL/min BUN/Creatinine Ratio (10-20) RATIO Glucose (74-106) mg/dL Hemoglobin A1c 7.3 H (4.2-6.3) % Calcium (8.5-10.1) mg/dL Troponin I < 0.015 (<0.045) ng/mL Triglycerides 125 ( - 199) mg/dL Cholesterol 179 (200) mg/dL LDL Cholesterol 110 (0-130) mg/dL VLDL Cholesterol 25 (5-40) mg/dL HDL Cholesterol 44 (40 - ) mg/dL POC Glucose (70-110) mg/dL 12/08/18 12/08/18 Range/Units 05:20 05:20 WBC 9.3 (4.4-11.0) K/mm3 RBC 3.13 L (4.2-5.4) M/mm3 Hgb 9.4 L (12.0-15.0) g/dL Hct 28.5 L (37-47) % MCV 91.1 (81-99) fL MCH 30.0 (27.0-32.0) pg MCHC 33.0 (32-36) g/dL RDW Std Deviation 43.7 (35.1-43.9) fl RDW Coeff of Pepe 13.2 (11.6-14.6) % Plt Count 155 (150-450) K/mm3 MPV 10.7 (6.2-12.0) fl Immature Gran % (Auto) 0.500 (0.0-0.9) % Neut % (Auto) 64.6 (47-70) % Lymph % (Auto) 19.7 (19-41) % Harris % (Auto) 9.5 (0-10) % Eos % (Auto) 5.4 H (0-5) % Baso % (Auto) 0.3 (0-1) % Absolute Neuts (auto) 6.0 (2.0-7.7) X10^3/uL Absolute Lymphs (auto) 1.84 (0.83-4.51) X10^3/uL Nucleated RBC % 0 (0-5) % Sodium 146 H (136-145) mmol/L Potassium 4.1 (3.5-5.1) mmol/L Chloride 114 H (98-107) mmol/L Carbon Dioxide 23.0 (21.0-32.0) mmol/L Anion Gap 9 (5-15) BUN 30 H (7-18) mg/dL Creatinine 2.05 H (0.55-1.02) mg/dL Estim Creat Clear Calc 20.52 ml/min Est GFR (MDRD) Af Amer 31 L (>60) mL/min Est GFR (MDRD) Non-Af 25 L (>60) mL/min BUN/Creatinine Ratio 14.6 (10-20) RATIO Glucose 89 (74-106) mg/dL Hemoglobin A1c (4.2-6.3) % Calcium 8.4 L (8.5-10.1) mg/dL Troponin I < 0.015 (<0.045) ng/mL Triglycerides ( - 199) mg/dL Cholesterol (200) mg/dL LDL Cholesterol (0-130) mg/dL VLDL Cholesterol (5-40) mg/dL HDL Cholesterol (40 - ) mg/dL POC Glucose (70-110) mg/dL Dr. Richi [facility] Operations: None Procedures: 2-D Echocardiogram - Interpretation Summary Moderate concentric left ventricular hypertrophy. The estimated ejection fraction is 65 %. Stage 2 diastolic dysfunction. The left atrium is mildly enlarged. Trivial mitral valve insufficiency. Mild (1+) tricuspid valve insufficiency. Right ventricular systolic pressure estimated to be 49 mmHg. Moderate pulmonary hypertension. Compared to echo report dated 08/20/2018, no appreciable changes noted., Stress test - Interpretation Summary The estimated ejection fraction is 65 %. Normal, adequate, dobutamine echocardiogram. Negative for ischemia by EKG and echocardiographic criteria. No anginal symptoms noted. Rare PVCs noted. Hypertensive blood pressure response to dobutamine despite sublingual nitroglycerin and IV hydralazine. Although the patient's heart rate did not reach target, heart rate pressure product of 21,120 demonstrates an adequate test. Test terminated due to exaggerated and hypertensive blood pressure response to dobutamine. Final LVEF is 75%. Patient tolerated procedure well. Summary of Care Provided: The patient is a 73 year old F with a past medical history of hypertension, diabetes mellitus type 2, GERD, hyperlipidemia, KHANG(compliant with BIPAP, morbid obesity, chronic renal failure stage IV, pulmonary hypertension, renal artery atherosclerosis and stage I diastolic dysfunction who presented to the emergency department at [facility] early in the morning on 12/08/2018 complaining of chest pain located beneath the left breast. The chest pain started at rest while she was lying in bed, it did not wake her up she had just been to the bathroom. There was no radiation of the pain and there was no diaphoresis, no nausea, no shortness of breath, no palpitations and no lightheadedness. The pain lasted for a few hours and then went away by itself. Vital signs at presentation to the emergency room were temperature 98.4, pulse rate 80, blood pressure 184/105, respiratory rate 18 and she was 98% saturated on room air. EKG in the emergency room was normal. There was no ST elevation or significant ST or T wave changes. Chest x-ray showed cardiomegaly but no pleural effusions, infiltrates or pulmonary vascular congestion. Initial troponin was less than 0.015. Hemoglobin was low at 9.4 with normochromic normocytic indices. Platelets and white blood cell count were within normal limits. Sodium was increased at 146 and the chloride was 114. The BUN is 30 and the creatinine is 2.05 which is within her baseline. Creatinine clearance was 20.5. She was admitted to a monitored bed on PCU. Dr. Lovelace was consulted and an ECHO was ordered. The second troponin was less than 0.015. A transthoracic echocardiogram showed moderate concentric left ventricular hypertrophy with an estimated ejection fraction of 65% and no wall motion abn ormalities. Review of stage I diastolic dysfunction has now progressed to be stage II diastolic dysfunction. Left atrium was mildly enlarged and there was no significant valvular heart disease. The right ventricular systolic pressure was estimated to be 49. She underwent a dobutamine stress echo that showed an ejection fraction of 65% and it was negative for stress-induced ischemia. Dr. Lovelace discontinued Amlodipine due to a complaint of leg swelling. He started her on Imdur and increased the Lasix to BID. Hydralazine was added to her drug regimen and she was started on Lipitor 10 mg Q HS. The LDL was 110 with a low HDL of 44. Triglycerides were normal at 125. Hemoglobin A1c was 7.3. Telemetry showed NSR with frequent PVC's and no NSVT. Blood pressure on 12/09/2018 at 8 AM was 156/48. A recheck blood pressure just prior to discharge was 163/66 and still not optimally controlled but hydralazine and Imdur have recently been started. She had no CP, no SOB, no muscle pain and no lightheadedness at the time of DC. She was agreeable to trying the low dose Atorvastatin and Hydralazine. We discussed trying to lose some weight to aid in BS and BP control. Her goals of treatment were explained and were BP < 130/80, LDL <70, HGBA1C less than 7. She may benefit from a referral to the [facility] program at the hospital run by the lead javascript engineer's for diet counselling. I suggested she consider a membership to [facility] and that way she will have access to machines for aerobic exercise without weight bearing. She is going to follow up with Dr. Wallis in 1 week for a BP check and a BMP and mag. She will follow up with Dr. Hui in 1 month. PHYSICAL EXAM: GENERAL: alert, oriented X 3, Cooperative, NAD ORAL: dry mucosa, no mucosal lesions, tongue deviates to the left NECK: No JVD, supple, trachea midline, brisk carotid upstroke with good pulse volume LUNGS: CTA, symmetric chest expansion, diminished HEART: RRR, Normal S1 and S2, no rub, no gallop, no murmur ABDOMEN: soft, NT, ND, BS present, no guarding with palpation EXTREMITIES: no edema, no cyanosis, no calf tenderness SKIN: No rashes, no breakdown NEUROLOGIC: no focal neurologic deficits PSYCH: appropriate, normal affect, pleasant This note was generated with [employer] dictation software. It may contain incorrect words, spelling, and punctuation that were not noted in checking the note before signing. Patient Problems: Active and Suspected Problems (Last Reviewed 12/08/18 @ 08:40 by Jessi Cardoza DO) Chest pain (Acute) - Physical Exam Vital Signs Temp Pulse Resp BP Pulse Ox 99.4 F H 73 18 163/66 H 98 12/09/18 13:27 12/09/18 13:29 12/09/18 13:27 12/09/18 13:29 12/09/18 13:27 Oxygen Flow Rate (L/min) 2 Oxygen Delivery Method Room Air Weight: 217 lb 6.012 oz Body Mass Index (BMI) 37.3 Finger Stick Blood Glucose 175 Intake and Output for Last 24 Hours 12/07/18 12/08/18 12/09/18 23:59 23:59 23:59 Intake Total 810 / 1050 240 / 240 Balance 810 / 1050 240 / 240 POC Glucose 12/09/18 12/09/18 12/08/18 11:44 06:47 22:27 POC Glucose 207 H 158 H 169 H 12/08/18 16:34 POC Glucose 113 H Discharge Activity: Return to Normal Activity, - - Try and exercise or 30 minutes 5 times a week. For people with arthritis who have trouble walking water exercise is very therapeutic because it offloads weight and takes the stress off the joints. You can swim at the high school or at the in [place] or exercise in the pool at [facility]. Another good exercise for people with arthritis is a Nu-step. This is a machine they have at [facility] that you sit on and push pedals and pull on handles with your arms......it is non-weight bearing. It will take a while to build your exercise tolerance up but, it will help control the blood sugars, help with weight loss and be good for your heart. I go there and there is a good crowd of us old folks on M, W, F and everyone is very nice. There are folks well into their 80's exercising.....that is how you get to be in your 80's and 90's/regular exercise. The memebership is not very expensive and some people have insurance that will pay for the membership. Call your doctor if you observe: Fever of 101 or Higher, Inability to urinate, Shortness of breath, Dizziness, Fainting spells, Chest pain Home Medications: Medications to take at Discharge Hydroxychloroquine [Plaquenil] 200 mg PO BIDCM 10/31/16 calcitriol 0.25 mcg capsule 0.25 mcg PO DAILY 11/01/17 tramadol 50 mg tablet 50 mg PO Q4H PRN PRN tab 11/01/17 coenzyme Q10 100 mg capsule 100 mg PO DAILY 02/13/18 Ascorbate Calcium [Calcium Ascorbate] 500 mg PO DAILY 12/08/18 Ascorbate Calcium/Bioflavonoid [Jeannette-C 500 mg Tablet] 500 mg PO DAILY 12/08/18 Aspirin [Aspirin, Baby] 81 mg PO DAILY@0800 12/08/18 Carvedilol 25 mg PO BID 12/08/18 Dextrose [Glucose] 4 gm PO PRN PRN 12/08/18 Ferrous Gluconate [Iron] 65 mg PO DAILY 12/08/18 Glimepiride [Amaryl] 2 mg PO DAILY 12/08/18 Insulin Glargine,Hum.rec.anlog [Basaglar Kwikpen U-100] 35 unit SUBCUT DAILY 12/08/18 Lisinopril [Zestril] 40 mg PO QDAY 12/08/18 Omeprazole 20 mg PO BID 12/08/18 Sitagliptin Phosphate [Januvia] 50 mg PO DAILY 12/08/18 Spironolactone 50 mg PO DAILY 12/08/18 Atorvastatin Calcium [Lipitor] 10 mg PO QHS #30 tab 12/09/18 Doxazosin Mesylate 4 mg PO QHS #0 tab 12/09/18 Furosemide [Lasix] 40 mg PO BID@1000,1800 #60 tab 12/09/18 Hydralazine HCl 100 mg PO TID #90 tab 12/09/18 Isosorbide Mononitrate [Imdur] 30 mg PO DAILY #30 tab 12/09/18 Following Prescrptions Were Given to Patient: Hydralazine HCl 100 mg PO TID #90 tab Transmission Status: Pending to [id number] Isosorbide Mononitrate [Imdur] 30 mg PO DAILY #30 tab Transmission Status: Pending to [id number] Furosemide [Lasix] 40 mg PO BID@1000,1800 #60 tab Transmission Status: Pending to [id number] Atorvastatin Calcium [Lipitor] 10 mg PO QHS #30 tab Transmission Status: Pending to [id number] Primary Care Physician: Hamzah Wallis MD [Primary Care Provider] - Please follow up with your Primary Care Physician in: 1 week Please Follow Up With: Clifford Hui MD When: 1 month Patient Instructions: Aerobic Exercise for a Healthy Heart Minutes spent on discharge:: 35 Patient Condition:: Good Medical Necessity - Tobacco Use Smoking Status: Never smoker Tobacco Use: Non-smoker Meaningful Use Info Meaningful Use Diagnoses (Choose all that apply): None applicable Code Visit OBSV E&M: 21527 Observation care discharge
== END 2018-12-09 14:01 | disposition home or self-care (01) ==
LOC: ED 07:04 → PCU 12-09 06:06
PROVIDERS: Admitting Provider Internal Medicine; Emergency Provider Emergency Medicine; Family Provider Internal Medicine; PCP Internal Medicine; Visit Provider Internal Medicine
DX: R07.89 Other chest pain (principal); R42 Dizziness and giddiness; I13.0 Hypertensive heart and chronic kidney disease with heart failure and stage 1 through stage 4 chronic kidney disease, or unspecified chronic kidney disease; E11.22 Type 2 diabetes mellitus with diabetic chronic kidney disease; N18.4 Chronic kidney disease, stage 4 (severe); I50.32 Chronic diastolic (congestive) heart failure; G47.33 Obstructive sleep apnea (adult) (pediatric); E66.01 Morbid (severe) obesity due to excess calories; L40.9 Psoriasis, unspecified; E11.40 Type 2 diabetes mellitus with diabetic neuropathy, unspecified; K21.9 Gastro-esophageal reflux disease without esophagitis; I27.20 Pulmonary hypertension, unspecified; E78.5 Hyperlipidemia, unspecified; D64.9 Anemia, unspecified; E87.0 Hyperosmolality and hypernatremia; Z79.899 Other long term (current) drug therapy; Z79.82 Long term (current) use of aspirin; Z71.3 Dietary counseling and surveillance; Z68.37 Body mass index [BMI] 37.0-37.9, adult; Z79.4 Long term (current) use of insulin
CPT/HCPCS: 36415; 71045; 80048; 80061; 82962; 83036; 84484; 85025; 93005; 93017; 93306; 93350; 99218; 99284; J7040; Q9957; A4216; G0378

== ENCOUNTER → 2018-12-26 13:22 | Outpatient (CLI) | payer MEDICARE, SELFPAY ==
[2018-12-08 08:12] VITALS: BMI 37.3
[2018-12-26 13:58] LABS: Absolute Lymphocyte Count 1.51 X10^3/uL (0.83-4.51); Absolute Neutrophil Count 7.4 X10^3/uL (2.0-7.7); Basophil# 0.04 X10^3/uL; Basophil% 0.4 % (0-1); Eosinophils% 6.6 % (0-5); Hematocrit 29.2 % (37-47); Hemoglobin 9.6 g/dL (12.0-15.0); Lymphocyte # 1.51 X10^3/ul (4.0); Lymphocyte % 14.2 % (19-41); Mean Corp Hgb Conc 32.9 g/dL (32-36); Mean Corpuscular Hgb 30.3 pg (27.0-32.0); Mean Corpuscular Volume 92.1 fL (81-99); Monocyte# 0.93 X10^3/uL; Monocyte% 8.7 % (0-10); NRBC Flagged by Analyzer 0 % (0-5); Neutrophil % 69.6 % (47-70); Platelet Count 171 K/mm3 (150-450); RBC Distribution Width CV 13.1 % (11.6-14.6); RBC Distribution Width SD 44.1 fl (35.1-43.9); Red Blood Count 3.17 M/mm3 (4.2-5.4); White Blood Count 10.6 K/mm3 (4.4-11.0)
[2018-12-26 14:36] LABS: ALB/GLOB Ratio 1.1 RATIO (0.9-2.4); AST(SGOT) 22 U/L (15-37); Alanine Aminotransfer ALT/SGPT 24 U/L (13-56); Albumin, Serum 3.5 g/dL (3.2-5.0); Alkaline Phosphatase 76 U/L (45-117); Anion Gap 7 (5-15); BUN 35 mg/dL (7-18); BUN/Creat Ratio 15.6 RATIO (10-20); Calcium,Total 8.3 mg/dL (8.5-10.1); Chloride 114 mmol/L (98-107); Creatinine, Serum 2.25 mg/dL (0.55-1.02); EST Glomerular Filtration Rate 23 mL/min (>60); Est Glom Filt Rate - Afr Amer 28 mL/min (>60); Globulin 3.1 g/dL (2.2-4.2); Glucose 175 mg/dL (74-106); Potassium 3.8 mmol/L (3.5-5.1); Protein, Total 6.6 g/dL (6.4-8.2); Sodium Level 142 mmol/L (136-145)
== END ==
PROVIDERS: Family Provider Internal Medicine; PCP Internal Medicine; Referring Provider Internal Medicine Rheumatology; Visit Provider Internal Medicine Rheumatology
DX: L40.59 Other psoriatic arthropathy (principal); M79.7 Fibromyalgia; M15.9 Polyosteoarthritis, unspecified; M17.0 Bilateral primary osteoarthritis of knee; L40.8 Other psoriasis; M65.30 Trigger finger, unspecified finger; M47.897 Other spondylosis, lumbosacral region; K21.0 Gastro-esophageal reflux disease with esophagitis; E11.9 Type 2 diabetes mellitus without complications
CPT/HCPCS: 36415; 80053; 85025

== ENCOUNTER → 2019-01-13 10:45 | Outpatient (CLI) | payer MEDICARE, SELFPAY ==
[2019-01-13 10:26] VITALS: BMI 36.6
[2019-01-13 12:24] LABS: Absolute Neutrophil Count 5.4 X10^3/uL (2.0-7.7); Basophil# 0.04 X10^3/uL; Basophil% 0.5 % (0-1); Eosinophil# 0.63 X10^3/uL; Eosinophils% 7.7 % (0-5); Hematocrit 31.5 % (37-47); Hemoglobin 9.9 g/dL (12.0-15.0); Lymphocyte % 15.9 % (19-41); Mean Corp Hgb Conc 31.4 g/dL (32-36); Mean Corpuscular Hgb 29.4 pg (27.0-32.0); Mean Corpuscular Volume 93.5 fL (81-99); Mean Platelet Vol. 11.7 fl (6.2-12.0); Monocyte# 0.75 X10^3/uL; Monocyte% 9.2 % (0-10); NRBC Flagged by Analyzer 0 % (0-5); Neutrophil % 66.2 % (47-70); Platelet Count 161 K/mm3 (150-450); RBC Distribution Width CV 13.4 % (11.6-14.6); Red Blood Count 3.37 M/mm3 (4.2-5.4); White Blood Count 8.2 K/mm3 (4.4-11.0)
[2019-01-13 13:03] LABS: AST(SGOT) 24 U/L (15-37); Alanine Aminotransfer ALT/SGPT 30 U/L (13-56); Albumin, Serum 3.3 g/dL (3.2-5.0); Alkaline Phosphatase 69 U/L (45-117); Anion Gap 7 (5-15); BUN 31 mg/dL (7-18); Calcium,Total 8.3 mg/dL (8.5-10.1); Chloride 115 mmol/L (98-107); Creatinine, Serum 2.38 mg/dL (0.55-1.02); EST Glomerular Filtration Rate 21 mL/min (>60); Est Glom Filt Rate - Afr Amer 26 mL/min (>60); Globulin 3.2 g/dL (2.2-4.2); Glucose 215 mg/dL (74-106); Magnesium 1.7 mg/dL (1.6-2.6); Potassium 4.1 mmol/L (3.5-5.1); Protein, Total 6.5 g/dL (6.4-8.2); Sodium Level 146 mmol/L (136-145)
== END ==
PROVIDERS: Family Provider Internal Medicine; PCP Internal Medicine; Visit Provider Internal Medicine
DX: R07.9 Chest pain, unspecified (principal); N18.4 Chronic kidney disease, stage 4 (severe); I12.9 Hypertensive chronic kidney disease with stage 1 through stage 4 chronic kidney disease, or unspecified chronic kidney disease
CPT/HCPCS: 36415; 80053; 83735; 85025

== ENCOUNTER → 2019-01-28 11:12 | Outpatient (CLI) | payer MEDICARE, SELFPAY ==
[2019-01-13 10:26] VITALS: BMI 36.6
[2019-01-23 14:47] VITALS: BMI 36.6
--- NOTE | 2019-01-28 11:15 | BI_ITS ---
MAMMOGRAPHY - BILATERAL SCREENING 3-D TOMOSYNTHESIS REASON FOR EXAM: Female, 73 years old. PERTINENT HISTORY: No significant family history. TECHNIQUE: 2-D mammograms and 3-D Tomosynthesis of the breast (s) were performed. CAD was performed. COMPARISON: October 15, 2017. FINDINGS: The breast composition is fatty Scattered benign calcifications are seen. No dense spiculated masses or suspicious microcalcifications are identified. No architectural distortion is identified. There is no skin thickening or nipple retraction. A metallic clip is seen around 10:00 o'clock on the left. There has been no significant change since the prior study of October 15, 2017 BI/SCREEN MAMM (CAD) W/MAURY BILAT IMPRESSION: No mammographic signs of malignancy. Routine yearly mammograms recommended. ASSESSMENT CATEGORY: BIRADS Category 1: Negative. A letter regarding these results will be sent to the patient by the facility within 30 days. FOLLOW UP RECOMMENDATION: Yearly follow up mammogram recommended. (A) Approximately 10% of breast cancers are not detected by mammography. A normal mammogram should not delay biopsy of a clinically suspicious abnormality. As the is seen. Computed central canal and Electronically Signed: Angela Garcia, at 11:34 EST Tel , Service support ,
== END ==
PROVIDERS: Family Provider Internal Medicine; PCP Internal Medicine; Referring Provider Internal Medicine; Visit Provider Internal Medicine
DX: Z12.31 Encounter for screening mammogram for malignant neoplasm of breast (principal)
CPT/HCPCS: 77063; 77067

== ENCOUNTER → 2019-02-16 13:19 | Outpatient (CLI) | payer MEDICARE, SELFPAY ==
[2019-01-23 14:47] VITALS: BMI 36.6
[2019-02-16 15:08] LABS: Hematocrit 31.9 % (37-47); Hemoglobin 10.2 g/dL (12.0-15.0); Mean Corpuscular Hgb 29.1 pg (27.0-32.0); Mean Corpuscular Volume 91.1 fL (81-99); Mean Platelet Vol. 11.6 fl (6.2-12.0); Platelet Count 169 K/mm3 (150-450); RBC Distribution Width CV 13.1 % (11.6-14.6); White Blood Count 9.1 K/mm3 (4.4-11.0)
[2019-02-16 15:20] LABS: Albumin, Serum 3.5 g/dL (3.2-5.0); BUN 34 mg/dL (7-18); BUN/Creat Ratio 13.9 RATIO (10-20); Calcium,Total 8.5 mg/dL (8.5-10.1); Chloride 110 mmol/L (98-107); Creatinine, Serum 2.44 mg/dL (0.55-1.02); EST Glomerular Filtration Rate 21 mL/min (>60); Est Glom Filt Rate - Afr Amer 25 mL/min (>60); Glucose 191 mg/dL (74-106); Phosphorus 4.4 mg/dL (2.5-4.9); Potassium 3.8 mmol/L (3.5-5.1); Sodium Level 141 mmol/L (136-145)
[2019-02-16 15:29] LABS: BNP,B-Type NATRIURETIC PEPTIDE 220.8 pg/mL (0-100)
== END ==
PROVIDERS: Family Provider Internal Medicine; PCP Internal Medicine; Referring Provider Internal Medicine Nephrology; Visit Provider Internal Medicine Nephrology
DX: N17.9 Acute kidney failure, unspecified (principal); N18.4 Chronic kidney disease, stage 4 (severe); D63.1 Anemia in chronic kidney disease; N25.81 Secondary hyperparathyroidism of renal origin
CPT/HCPCS: 36415; 80069; 83880; 85027

== ENCOUNTER → 2019-02-26 11:55 | Outpatient (CLI) | payer MEDICARE, SELFPAY ==
[2019-01-23 14:47] VITALS: BMI 36.6
[2019-02-26 13:01] LABS: PTHIN 329.7 pg/mL (18.4-80.1)
== END ==
PROVIDERS: Family Provider Internal Medicine; PCP Internal Medicine; Visit Provider Internal Medicine Nephrology
DX: N25.81 Secondary hyperparathyroidism of renal origin (principal)
CPT/HCPCS: 36415; 83970

== ENCOUNTER → 2019-03-27 10:23 | Outpatient (CLI) | payer MEDICARE, SELFPAY ==
[2019-03-20 10:32] VITALS: BMI 36.6
[2019-03-27 12:48] LABS: Anion Gap 7 (5-15); BUN 28 mg/dL (7-18); BUN/Creat Ratio 12.9 RATIO (10-20); Calcium,Total 8.7 mg/dL (8.5-10.1); Chloride 111 mmol/L (98-107); Creatinine, Serum 2.17 mg/dL (0.55-1.02); EST Glomerular Filtration Rate 24 mL/min (>60); Est Glom Filt Rate - Afr Amer 29 mL/min (>60); Glucose 150 mg/dL (74-106); Potassium 3.8 mmol/L (3.5-5.1); Sodium Level 143 mmol/L (136-145)
== END ==
PROVIDERS: PCP Internal Medicine; Referring Provider Nurse Practitioner Family; Visit Provider Nurse Practitioner Family
DX: I10 Essential (primary) hypertension (principal)
CPT/HCPCS: 36415; 80048

== ENCOUNTER → 2019-04-15 14:07 | Outpatient (CLI) | payer MEDICARE, SELFPAY ==
[2019-04-14 10:33] VITALS: BMI 36.6
== END ==
PROVIDERS: PCP Internal Medicine; Referring Provider Internal Medicine; Visit Provider Internal Medicine
DX: E11.9 Type 2 diabetes mellitus without complications (principal)
CPT/HCPCS: 82043; 82570

== ENCOUNTER → 2019-04-23 10:41 | Outpatient (CLI) | payer MEDICARE, SELFPAY ==
[2018-11-27 10:08] VITALS: BMI 36.4
[2019-04-14 10:33] VITALS: BMI 36.6
--- NOTE | 2019-04-23 15:29 | PFTCOMP_ITS ---
COMPLETE PULMONARY FUNCTION TEST INTERPRETATION Brief HPI: Patient is a 73 year old female, currently under the care of myself, who presents to [facility] for complete pulmonary function tests secondary to diagnosis of pulmonary hypertension. Respiratory therapist reports good effort and reproducible results. Interpretation: Forced expiration spirometry shows no large airways obstructive ventilatory defect with an FEV1 of 72% predicted. There is no significant bronchodilator response by strict ATS criteria. Spirograms are of good quality and plateau normally. The respiratory flow volume loop shows a normal pattern. Lung volumes by body plethysmography show a decreased total lung capacity at 3.24 L, 68% predicted. All other lung volumes are reduced symmetrically. Diffusion capacity by carbon monoxide is decreased at 44% predicted. The airway resistance is slightly elevated. Compared to previous pulmonary function tests from 09/25/2018, there is been a significant improvement in DLCO by 36%. Impression: Mild restrictive ventilatory defect with a disproportionate reduction in diffusing capacity and some improvement compared to previous study.
== END ==
PROVIDERS: Family Provider Internal Medicine; PCP Internal Medicine; Referring Provider Internal Medicine Critical Care Medicine; Visit Provider Internal Medicine Critical Care Medicine
DX: I27.20 Pulmonary hypertension, unspecified (principal)
CPT/HCPCS: 94060; 94726; 94729

== ENCOUNTER → 2019-07-28 14:03 | Outpatient (CLI) | payer MEDICARE, SELFPAY ==
[2019-07-28 11:14] VITALS: BMI 35.4
[2019-07-28 15:19] LABS: Hemoglobin A1c 7.3 % (3.8-5.6)
[2019-07-28 15:23] LABS: ALB/GLOB Ratio 0.9 RATIO (0.9-2.4); AST(SGOT) 19 U/L (15-37); Alanine Aminotransfer ALT/SGPT 24 U/L (13-56); Albumin, Serum 3.2 g/dL (3.2-5.0); Alkaline Phosphatase 86 U/L (45-117); Anion Gap 8 (5-15); BUN 39 mg/dL (7-18); BUN/Creat Ratio 16.3 RATIO (10-20); Calcium,Total 8.8 mg/dL (8.5-10.1); Chloride 111 mmol/L (98-107); Creatinine, Serum 2.39 mg/dL (0.55-1.02); EST Glomerular Filtration Rate 21 mL/min (>60); Est Glom Filt Rate - Afr Amer 26 mL/min (>60); Globulin 3.4 g/dL (2.2-4.2); Glucose 226 mg/dL (74-106); Potassium 3.9 mmol/L (3.5-5.1); Protein, Total 6.6 g/dL (6.4-8.2); Sodium Level 143 mmol/L (136-145)
== END ==
PROVIDERS: PCP Internal Medicine; Referring Provider Internal Medicine; Visit Provider Internal Medicine
DX: E11.9 Type 2 diabetes mellitus without complications (principal)
CPT/HCPCS: 80053; 82043; 82570; 83036

== ENCOUNTER → 2019-09-07 10:04 | Outpatient (CLI) | payer MEDICARE, SELFPAY ==
[2019-05-05 08:05] VITALS: BMI 35.4
[2019-08-14 10:57] VITALS: BMI 35.4
[2019-09-07 12:55] LABS: Hemoglobin 8.7 g/dL (12.0-15.0); Mean Corp Hgb Conc 31.1 g/dL (32-36); Mean Corpuscular Hgb 29.7 pg (27.0-32.0); Mean Corpuscular Volume 95.6 fL (81-99); Mean Platelet Vol. 11.1 fl (6.2-12.0); Platelet Count 142 K/mm3 (150-450); RBC Distribution Width CV 13.8 % (11.6-14.6); RBC Distribution Width SD 48.3 fl (35.1-43.9); Red Blood Count 2.93 M/mm3 (4.2-5.4); White Blood Count 8.4 K/mm3 (4.4-11.0)
[2019-09-07 13:20] LABS: PTHIN 175.2 pg/mL (18.4-80.1); Protein:Creat Ratio 4257 mg/g CRE (0-200)
[2019-09-07 13:39] LABS: Albumin, Serum 3.3 g/dL (3.2-5.0); BUN 44 mg/dL (7-18); BUN/Creat Ratio 19.2 RATIO (10-20); Calcium,Total 8.8 mg/dL (8.5-10.1); Chloride 114 mmol/L (98-107); Creatinine, Serum 2.29 mg/dL (0.55-1.02); EST Glomerular Filtration Rate 22 mL/min (>60); Est Glom Filt Rate - Afr Amer 27 mL/min (>60); Ferritin 112 ng/mL (8-252); Glucose 187 mg/dL (74-106); Iron 50 ug/dL (50-170); Iron Binding Capacity,Total 269 ug/dL (250-450); PERCENT IRON SATURATION 18.6 % (15.0-55.0); Phosphorus 3.9 mg/dL (2.5-4.9); Potassium 3.7 mmol/L (3.5-5.1); Sodium Level 146 mmol/L (136-145)
== END ==
PROVIDERS: PCP Internal Medicine; Referring Provider Internal Medicine Nephrology; Visit Provider Internal Medicine Nephrology
DX: E11.22 Type 2 diabetes mellitus with diabetic chronic kidney disease (principal); N18.4 Chronic kidney disease, stage 4 (severe); D63.8 Anemia in other chronic diseases classified elsewhere; N25.81 Secondary hyperparathyroidism of renal origin
CPT/HCPCS: 36415; 80069; 82570; 82728; 83540; 83550; 83970; 84156; 85027

== ENCOUNTER → 2019-09-17 11:46 | Outpatient (CLI) | payer MEDICARE, SELFPAY ==
[2019-09-15 15:41] VITALS: BMI 35.2
[2019-09-17 11:53] LABS: Mucous, Urine 0 SEEN /hpf (<or=2+); Red Blood Cells-Urine 0 SEEN /hpf (0-5)
[2019-09-17 12:36] LABS: Color, Urine Yellow (Yellow); Glucose, Dipstick Normal (Normal); Ketone-Dipstick 5 mg/dl (Negative); Leukocyte Esterase-Dipstick 25 /ul (Negative); Nitrite-Dipstick Negative (Negative); Occult Blood-Urine Negative /ul (Negative); Protein-Dipstick 500 mg/dl (Negative); Urine Bilirubin Dipstick Negative (Negative); Urine Clarity Sl. Cloudy (Clear); Urine Urobilinogen Normal (Normal)
[2019-09-17 13:11] LABS: Bacteria 2+ /hpf (None Seen); Squamous Epithelial Cells - UA 0-5 SEEN /hpf (5-10); White Blood Cells 0-5 SEEN /hpf (0-5)
== END ==
PROVIDERS: PCP Internal Medicine; Referring Provider Internal Medicine Medical Oncology; Visit Provider Internal Medicine Medical Oncology
DX: E21.3 Hyperparathyroidism, unspecified (principal); D63.8 Anemia in other chronic diseases classified elsewhere
CPT/HCPCS: 81001; 82274

== ENCOUNTER 2019-10-12 07:44 | Day surgery (SDC) | payer MEDICARE, SELFPAY ==
--- NOTE | 2019-09-29 08:24 | HP_ITS ---
Intake Vital Signs 09/29/19 BMI 34.7 09/29/19 Height 5 ft 4 in 09/29/19 Weight: 203 lb 8 oz 09/29/19 BMI 34.9 09/29/19 BP 211/67 H 09/29/19 Blood Pressure Location Rt brachial 09/29/19 Position Sitting 09/29/19 Respiration 18 09/29/19 Pulse 69 09/29/19 Pulse Source Monitor 09/29/19 Temp 96.5 F L 09/29/19 Temp Source Temporal 09/29/19 Pulse Oximetry (%) 98 09/29/19 Oxygen Delivery Method room air Intake Visit Reasons: Blood in stool Chief Complaint: positive occult blood/c-scope Communications Advisor Required: No Is patient in pain?: No Allergies calcium Allergy (Unknown, Verified 09/29/19 08:21) constipation furosemide Allergy (Unknown, Verified 09/29/19 08:21) Constpation amiloride Allergy (Verified 09/29/19 08:21) NEEDS FOLLOW-UP amlodipine Allergy (Verified 09/29/19 08:21) NEEDS FOLLOW-UP azithromycin [From Zithromax Z-Rickey] Allergy (Verified 09/29/19 08:21) NEEDS FOLLOW-UP bumetanide Allergy (Verified 09/29/19 08:21) Unknown chlorthalidone Allergy (Verified 09/29/19 08:21) Unknown clonidine HCl [From Catapres] Allergy (Verified 09/29/19 08:21) Rash diltiazem Allergy (Verified 09/29/19 08:21) Unknown gemfibrozil Allergy (Verified 09/29/19 08:21) Unknown hydralazine [Hydralazine] Allergy (Verified 09/29/19 08:21) Swelling lisinopril Allergy (Verified 09/29/19 08:21) NEEDS FOLLOW-UP losartan [Losartan] Allergy (Verified 09/29/19 08:21) Unknown minoxidil Allergy (Verified 09/29/19 08:21) Unknown nifedipine Allergy (Verified 09/29/19 08:21) Unknown simvastatin [From Zocor] Allergy (Verified 09/29/19 08:21) Unknown triamterene [From Dyazide] Allergy (Verified 09/29/19 08:21) Unknown valdecoxib [From Bextra] Allergy (Verified 07/28/20 08:21) Unknown verapamil [Verapamil] Allergy (Verified 09/29/19 08:21) Unknown atorvastatin Adverse Reaction (Unknown, Verified 09/29/19 08:21) Swelling clonidine [From Catapres] Adverse Reaction (Unknown, Verified 09/29/19 08:21) Unknown esomeprazole [From Nexium] Adverse Reaction (Unknown, Verified 09/29/19 08:21) Swelling metformin [From Glucophage] Adverse Reaction (Unknown, Verified 09/29/19 08:21) Other rosuvastatin [From Crestor] Adverse Reaction (Unknown, Verified 09/29/19 08:21) leg cramps/ swelling atorvastatin calcium [From Lipitor] Adverse Reaction (Verified 09/29/19 08:21) Leg cramps/aching celecoxib [From Celebrex] Adverse Reaction (Verified 09/29/19 08:21) Leg aching hydrochlorothiazide Adverse Reaction (Verified 09/29/19 08:21) Legs aching indapamide Adverse Reaction (Verified 09/29/19 08:21) Other insulin detemir [From Levemir] Adverse Reaction (Verified 09/29/19 08:21) Unknown lansoprazole [From Prevacid] Adverse Reaction (Verified 09/29/19 08:21) Legs aching metformin HCl [From Glucophage] Adverse Reaction (Verified 09/29/19 08:21) Diarrhea pravastatin Adverse Reaction (Verified 09/29/19 08:21) Legs aching rosuvastatin calcium [From Crestor] Adverse Reaction (Verified 09/29/19 08:21) Legs aching Medications calcitriol 0.25 mcg capsule 0.25 mcg PO DAILY 11/01/17 [History Confirmed 09/29/19] tramadol 50 mg tablet 50 mg PO DAILY tab 11/01/17 [History Confirmed 09/29/19] atorvastatin 10 mg tablet 10 mg PO QHS #90 tab 12/27/18 [Rx Confirmed 09/29/19] carvedilol 25 mg tablet 25 mg PO BID #180 tab 01/08/19 [Rx Confirmed 09/29/19] insulin glargine 100 unit/mL (3 mL) subcutaneous pen 42 unit SUBCUT DAILY ml 01/13/19 [History Confirmed 09/29/19] valsartan 160 mg tablet 160 mg PO DAILY #30 tab 03/20/19 [Rx Confirmed 09/29/19] lancets See Rx Instructions .ROUTE .MEDSUPPLY #50 ea 04/03/19 [Rx Confirmed 09/29/19] pen needle, diabetic 29 gauge x 1/2 See Rx Instructions .ROUTE .MEDSUPPLY #30 ea 04/03/19 [Rx Confirmed 09/29/19] sitagliptin 100 mg tablet 100 mg PO DAILY #90 tab 07/14/19 [Rx Confirmed 09/29/19] doxazosin 4 mg tablet 8 mg PO BID tab 07/23/19 [History Confirmed 09/29/19] duloxetine 30 mg capsule,delayed release 30 ea PO DAILY 07/23/19 [History Confirmed 09/29/19] furosemide 40 mg tablet 20 mg PO DAILY tab 07/23/19 [History Confirmed 09/29/19] hydroxychloroquine 200 mg tablet 200 mg PO BID tab 07/23/19 [History Confirmed 09/29/19] omeprazole 20 mg capsule,delayed release 20 mg PO DAILY cap 07/23/19 [History Confirmed 09/29/19] hydralazine 100 mg tablet 100 mg PO TID #90 tab 08/05/19 [Rx Confirmed 09/29/19] Ascorbate Calcium/Bioflavonoid [Jeannette-C 500 mg Tablet] 1 ea PO DAILY 09/11/19 [History Confirmed 09/29/19] Grape Seed Extract [Meganatural-Bp] 200 mg PO DAILY 09/11/19 [History Confirmed 09/29/19] Ubidecarenone [Coq-10] 100 mg PO DAILY 09/11/19 [History Confirmed 09/29/19] Iron Carbonyl [Feosol] 45 mg PO DAILY 09/15/19 [History Confirmed 09/29/19] Isosorbide Mononitrate [Isosorbide Mononitrate ER] 60 mg PO DAILY 09/15/19 [History Confirmed 09/29/19] Multivit-Min/FA/Lycopen/Lutein [Centrum Silver Tablet] 1 tab PO DAILY 09/15/19 [History Confirmed 09/29/19] [facility], [facility] Medical History Chronic diastolic (congestive) heart failure (Chronic) Secondary pulmonary arterial hypertension (Chronic) Essential (primary) hypertension (Chronic) HLD (hyperlipidemia) (Chronic) Chronic renal failure, stage 4 (severe) (Chronic) KHANG (obstructive sleep apnea) (Chronic) Hypersomnolence (Chronic) Bilateral edema of lower extremity (Chronic) Diverticular disease (Acute) Hyperkalemia (Acute) Hyperparathyroidism (Acute) Anemia of chronic disease (Chronic) Chronic osteoarthritis (Chronic) GERD (gastroesophageal reflux disease) (Chronic) History of diverticulosis (Chronic) Left carotid bruit (Chronic) Morbid obesity (Chronic) Neuropathy (Chronic) Psoriasis (Chronic) Renal artery atherosclerosis (Chronic) Rheumatoid arthritis (Chronic) Systolic hypertension with cerebrovascular disease (Chronic) Type 2 diabetes mellitus treated with insulin (Chronic) Acute on chronic diastolic (congestive) heart failure (Resolved) HTN (hypertension), malignant (Resolved) Hx of mini strokes (Resolved) Uncontrolled hypertension (Inactive) Surgical History History of appendectomy (Resolved) S/P breast lumpectomy (Resolved) gallbladder removed (Resolved) surgery on finger due to infection (Resolved) Family History Mother Diabetes Heart disease CVA (cerebral vascular accident) Myocardial infarction had [place] in 70s Father Cancer lung, passed at 70 Brother Kidney disease of renal failure at 65. Sister Diabetes Hypertension Mother Diabetes Heart disease CVA (cerebral vascular accident) Myocardial infarction age 70s Father Cancer lung CA Sister Hypertension Diabetes Social History (Updated 09/29/19 @ 08:[address] Richi Le MD) household members: spouse housing: house pets and animals: Yes pets and animals: dog(s) Smoking Status: Never smoker second hand exposure: No alcohol intake: never substance use type: does not use caffeine: Yes Type: tea Number of servings: 4 what type of physical activity do you participate in: walking, weight training, other details: NuStep frequency: 3-4 times per week duration: 15-30 minutes/day seatbelt use: always do you feel safe at home: Yes HPI HPI Surgical H&P: Yes HPI: KAYLI PELAEZ, is a 73 F who presents to the office today for Evaluation for endoscopy. Patient has a hemoglobin of 10.1 and was noted to have blood in her stool. She is not noticing any blood on a regular basis. She is not complaining of any abdominal pain. Patient does have a history of gastroesophageal reflux disease and does take omeprazole on a regular basis. She is asymptomatic at the current time. Patient states that she has had a colonoscopy in the remote past but cannot remember exactly when it was done she also states that she is never had an EGD. ROS General General: Yes fatigue; no weight change, appetite, colon cancer, breast cancer or weakness HEENT HEENT: No difficulty swallowing, eye injury, eye surgery, swollen glands or hoarseness Endo Endocrine: Yes diabetes mellitus; no thyroid disease, thyroid cancer, Hair loss, heat intolerance or cold intolerance Skin Skin: Yes rash; no changing moles Breast Breast: No left breast lump, right breast lump, nipple discharge, breast pain, abnormal mammogram, abnormal US or breast enlargement Musc Musculoskeletal: Yes back problems, arthritis and rheumatoid arthritis; no gout or joint pain Cardio Cardiovascular: Yes heart disease and high blood pressure; no murmur, pacemaker, atrial fibrillation, heart attack, heart stent, palpitations, shortness of breat with exertion or chest pain Psych Psychiatric: No depression, anxiety or hearing voices Resp Respiratory: Yes shortness of breath, Yes sleep apnea, No cough, No COPD, No asthma, No emphysema, No wheezing Gastro Gastrointestinal: No abdominal pain, No nausea or vomiting, Yes diarrhea, Yes constipation, No blood in stool, Yes acid reflux, No hemorrhoids, No ulcers, No gallbladder problem, No black,tarry stools Mert Hematologic: No blood thinners, No blood disorders, No bleeding, Yes anemia, No blood clots Neuro Neurologic: No system reviewed and no additional complaints, except as docu, No as per HPI, No abnormal walking, No abnormal hearing, No abnormal movements, No abnormal speech, No behavioral changes, No burning sensations, No confusion, No seizure-like activity, No unsteadiness, No dizziness, No localized weakness, No frequent falls, No headache(s), No lack of coordination, No loss of vision, No memory loss, Yes numbness, No other visual disturbances, No radiating pain, No restless legs, No sensory deficit, No fainting, Yes tingling, No tremor(s), No weakness, No other Exam Const General: no acute distress, well developed, well hydrated Orientation: oriented to person, oriented to place, oriented to time [facility] Head: normocephalic, atraumatic Ears: external ears normal Mouth: moist mucous membranes Eyes Sclera: sclerae normal Pupils: normal by confrontation Neck Neck: no lymphadenopathy noted Neck mass: No Thyroid: thyroid normal, symmetrical Chest Chest palpation & inspection: normal inspection of the chest Breast Palpation: No nipple discharge Resp Effort & Inspection: normal respiratory effort Auscultation: clear to auscultation bilaterally Percussion: percussion normal Cardio Rate: regular rate Rhythm: regular rhythm Heart Sounds: no murmurs GI Palpation: soft, no hepatosplenomegaly, no masses, nontender Rectal Exam: other Other: Rectal exam deferred. Extrem General: normal to inspection, no clubbing, cyanosis or edema Assessment & Plan Problems 1. Anemia due to chronic kidney disease, unspecified CKD stage N18.9 2. Heme positive stool R19.5 Plan I have discussed the above with the patient. I have offered the patient colonoscopy As well as an EGD for evaluation. I have explained the risks/benefits of the procedure and described the procedure. I have discussed the risks with the patient, including but not limited to: infection, bleeding, perforation of the GI tract requiring emergency surgery, inability to complete the procedure, injury to any internal organs, complications of anesthesia, etc. - the patient understands and agrees to proceed. I have answered all the patient's questions to the patient's satisfaction and the patient has no further questions. The patient has been given instructions for the colon cleansing preparation. Coding Level of Care Code Off vis,new,level 3 Diagnoses Anemia due to chronic kidney disease, unspecified CKD stage N18.9 ??Anemia type: due to chronic kidney disease ??Chronic kidney disease stage: unspecified stage Heme positive stool R19.5 COVID (Procedure Consent) Procedure Criteria Procedure Criteria: Yes Elective The surgeon/proceduralist and patient have discussed in detail the risk of exposure to and/or potential harm posed by the COVID-19 virus with having a surgery/procedure at this time versus the risk of? delaying the surgery/procedure. It is not possible to know either the risk of delaying the surgery or procedure or chance of getting an infection with perfect accuracy, but a joint decision was made between the patient and the surgeon/proceduralist ?to proceed at this time with the scheduled surgery/procedure as indicated on the consent form. 09/29/19 0824 <Electronically signed by Rcihi reed MD> Date _ Richi Le MD I have re-examined the patient. There are no clinical changes since date of exam.
[2019-09-29 09:03] VITALS: BMI 34.7
[2019-10-12 08:31] VITALS: BP 222/67; PULSE 70; RESP 18; TEMP 36.4; O2SAT 98; BMI 35.1
[2019-10-12] MEDS: Lactated Ringers 1,000 ML 100 ML IV (08:50)
[2019-10-12 08:56] LABS: Bedside Glucose 219 mg/dL (70-110)
--- NOTE | 2019-10-12 09:00 | EGD_PTH ---
PATIENT: KAYLI PELAEZ LOC: EN U#:[id number] AGE/SX: 73/F ROOM: RE10/12/[address]: Dr. Richi Le MD : 1945 BED: DIS: 10/12/2019 SPEC #: [id number] RECD: 10/12/19 10:24 STATUS: LEE CHICHI #: [id number] MAKAYLA: 10/12/19 09:[address]: Richi Le DEPT: SURGICAL PATHOLOGY RECD BY: Jacky Bradley ENTERED: 10/12/19 11:04 SP TYPE: EGD BIOPSY OT DR: Dr. Hamzah Wallis MD Tissues: A - Gastric mucous membrane B - Stomach, NOS Procedures: Surgery Specimen Level IV HEADER OPERATION: Colonoscopy, EGD ([facility]) PRE-OP DIAGNOSIS: Anemia, heme-positive stool TISSUE SUBMITTED: A - Antrum biopsy for histo and H. pylori, B - Fundic gland polyp biopsy MICROSCOPIC DIAGNOSIS A. Antrum biopsy: Mild gastritis. See microscopic description and comment. B. Fundic gland polyp, biopsy: Consistent with hyperplastic/inflammatory polyp. EUGENIA:perry 10/13/19 COMMENT A. The results of immunohistochemistry for Helicobacter pylori will be reported separately ([id number]). MICROSCOPIC DESCRIPTION Slides are reviewed. A. The specimen shows fragments of gastric mucosa with chronic inflammatory cell infiltrates in the lamina propria consisting of lymphocytes and plasma cells, consistent with mild chronic gastritis. GROSS DESCRIPTION A - Received in fixative is one container labeled with the patient's name and designated antrum biopsy. The specimen consists of two irregular fragments of light beckett soft tissue that in aggregate measure 0.5 x 0.3 x 0.1 cm. The specimen is totally submitted in one cassette. B - Received in fixative is one container labeled with the patient's name and designated fundic gland polyp. The specimen consists of one irregular fragment of light beckett soft tissue that measures 0.3 x 0.3 x 0.1 cm. The specimen is totally submitted in one cassette. / SJ:perry 10/12/19 TC:3 CPT: 10248 x2
--- NOTE | 2019-10-12 09:00 | IMM_PTH ---
PATIENT: KAYLI PELAEZ LOC: EN U#:[id number] AGE/SX: 73/F ROOM: RE10/12/[address]: Dr. Richi Le MD : 1945 BED: DIS: 10/12/2019 SPEC #: [id number] RECD: 10/12/19 11:39 STATUS: SOUSalbador REQ #: [id number] MAKAYLA: 10/12/19 09:[address]: Richi Le DEPT: IMMUNOHISTOCHEMISTRY RECD BY: Shayna Ernandez ENTERED: 10/12/19 11:40 SP TYPE: IMMUNO OTHR DR: Dr. Hamzah Wallis MD Tissues: A - Stomach, NOS Procedures: H Pylori (initial) PHYSICIAN & INSTITUTION [place] [id number] SPECIMEN INFORMATION: Tissue Source: A - Antrum biopsy Clinical Info: Anemia, heme-positive stool Specimen Number: [id number] CPT code: 53718 METHODOLOGY: Deparaffinized sections of prefer/formalin-fixed tissue or PAP/DQ stained slides are incubated with monoclonal/polyclonal antibodies/oligonucleotide probes. Localization is made via biotin free immunoperoxidase method. Appropriate controls are performed and reacted as expected. Results on target cell population are indicated in the following table: RESULTS: ANTIBODY / CLONE RESULT Block A H Pylori (polyclonal) negative These tests were developed and their performance characteristics determined by [facility]. They may not have been cleared or approved by the U.S. Food and Drug Administration. The FDA has determined that such clearance or approval is not necessary. INTERPRETATION: A. Antrum biopsy: Negative for Helicobacter pylori organisms. SJ:perry 10/13/19
--- NOTE | 2019-10-12 09:20 | OP.CCLET_ITS ---
10/12/2019 Hamzah Wallis MD [address] [place] [address] [place] [address] Re : Upper GI endoscopy procedure for Gisel Hobson Dear Dr. Wallis This procedure was performed on Saturday, October 12, 2019. My impressions and recommendations are as follows: Impressions : - Normal esophagus. - A few gastric polyps. Resected and retrieved. - Normal stomach. Biopsied. - Normal examined duodenum. No specimens collected. Recommendations : - Discharge patient to home. - Resume previous diet. - Continue present medications. - Await pathology results. - Repeat upper endoscopy (date not yet determined) for surveillance. - Return to primary care physician (date not yet determined). My findings are described in the full procedure note, which is enclosed. If I can be of further assistance, please feel free to contact me at Doctor phone number(s): , Fax: [phone], Work: . Sincerely, MD Richi Stuart MD 10/12/2019 9:20:12 AM This report has been signed electronically.
--- NOTE | 2019-10-12 09:20 | OP.EGD_ITS ---
Patient Name: Gisel Hobson Procedure Date: 10/12/2019 8:51 AM Date of : 1945 Age: 73 Procedure: Upper GI endoscopy Indications: Unexplained iron deficiency anemia Providers: Richi Le MD Referring MD: Hamzah Wallis MD Medicines: See the Anesthesia note for documentation of the administered medications Patient Profile: This is a 73 year old female. Refer to note in patient chart for documentation of history and physical. Complications: No immediate complications. Procedure: Pre-Anesthesia Assessment: - Prior to the procedure, a History and Physical was performed, and patient medications and allergies were reviewed. The patient's tolerance of previous anesthesia was also reviewed. The risks and benefits of the procedure and the sedation options and risks were discussed with the patient. All questions were answered, and informed consent was obtained. Prior Anticoagulants: The patient has taken no previous anticoagulant or antiplatelet agents. ASA Grade Assessment: III - A patient with severe systemic disease. After reviewing the risks and benefits, the patient was deemed in satisfactory condition to undergo the procedure. After obtaining informed consent, the endoscope was passed under direct vision. Throughout the procedure, the patient's blood pressure, pulse, and oxygen saturations were monitored continuously. The Endoscope was introduced through the mouth, and advanced to the second part of duodenum. The upper GI endoscopy was accomplished without difficulty. The patient tolerated the procedure well. Scope In: 9:00:26 AM Scope Out: 9:03:07 AM Total Procedure Duration Time 0 hours 2 minutes 41 seconds Findings: The examined esophagus was normal. A few 3 mm sessile polyps with no bleeding and no stigmata of recent bleeding were found in the gastric antrum. The polyp was removed with a jumbo cold forceps. Resection and retrieval were complete. The entire examined stomach was normal. Biopsies were taken with a cold forceps for Helicobacter pylori testing. The examined duodenum was normal. No biopsies or other specimens were collected for this exam. Impression: - Normal esophagus. - A few gastric polyps. Resected and retrieved. - Normal stomach. Biopsied. - Normal examined duodenum. No specimens collected. Recommendation: - Discharge patient to home. - Resume previous diet. - Continue present medications. - Await pathology results. - Repeat upper endoscopy (date not yet determined) for surveillance. - Return to primary care physician (date not yet determined). Procedure Code(s): --- Professional --- 69848, Esophagogastroduodenoscopy, flexible, transoral; with biopsy, single or multiple Diagnosis Code(s): --- Professional --- K31.7, Polyp of stomach and duodenum D50.9, Iron deficiency anemia, unspecified CPT copyright 2017 [employer]. All rights reserved. The codes documented in this report are preliminary and upon account adjuster review may be revised to meet current compliance requirements. MD Richi Stuart MD 10/12/2019 9:20:12 AM This report has been signed electronically. Number of Addenda: 0 Note Initiated On: 10/12/2019 8:51 AM
--- NOTE | 2019-10-12 09:22 | OP.COLON_ITS ---
Patient Name: Gisel Hobson Procedure Date: 10/12/2019 9:03 AM Date of : 1945 Age: 73 Procedure: Colonoscopy Indications: Heme positive stool, Unexplained iron deficiency anemia Providers: Richi Le MD Referring MD: Hamzah Wallis MD Medicines: See the Anesthesia note for documentation of the administered medications Patient Profile: This is a 73 year old female. Refer to note in patient chart for documentation of history and physical. Last Colonoscopy: more than 10 years ago. Complications: No immediate complications. Procedure: Pre-Anesthesia Assessment: - Prior to the procedure, a History and Physical was performed, and patient medications and allergies were reviewed. The patient's tolerance of previous anesthesia was also reviewed. The risks and benefits of the procedure and the sedation options and risks were discussed with the patient. All questions were answered, and informed consent was obtained. Prior Anticoagulants: The patient has taken no previous anticoagulant or antiplatelet agents. ASA Grade Assessment: III - A patient with severe systemic disease. After reviewing the risks and benefits, the patient was deemed in satisfactory condition to undergo the procedure. After I obtained informed consent, the scope was passed under direct vision. Throughout the procedure, the patient's blood pressure, pulse, and oxygen saturations were monitored continuously. The adult colonoscope was introduced through the anus and advanced to the cecum, identified by appendiceal orifice and ileocecal valve. The colonoscopy was performed without difficulty. The patient tolerated the procedure well. The quality of the bowel preparation was good. Scope In: 9:05:18 AM Scope Withdrawal Time 0 hours 6 minutes 3 seconds Scope Out: 9:14:35 AM Total Procedure Duration Time 0 hours 9 minutes 17 seconds Findings: The exam was otherwise without abnormality on direct and retroflexion views. Impression: - The examination was otherwise normal on direct and retroflexion views. - No specimens collected. Recommendation: - Discharge patient to home. - Resume previous diet. - Continue present medications. - Repeat colonoscopy in 10 years for screening purposes. - Return to primary care physician (date not yet determined). Procedure Code(s): --- Professional --- 47057, Colonoscopy, flexible; diagnostic, including collection of specimen(s) by brushing or washing, when performed (separate procedure) Diagnosis Code(s): --- Professional --- R19.5, Other fecal abnormalities D50.9, Iron deficiency anemia, unspecified CPT copyright 2017 [employer]. All rights reserved. The codes documented in this report are preliminary and upon rn traveling review may be revised to meet current compliance requirements. MD Richi Stuart MD 10/12/2019 9:21:50 AM This report has been signed electronically. Number of Addenda: 0 Note Initiated On: 10/12/2019 9:03 AM
--- NOTE | 2019-10-12 09:22 | OP.CCLET_ITS ---
10/12/2019 Hamzah Wallis MD [address] [place] [address] [place] [address] Re : Colonoscopy procedure for Gisel Hobson Dear Dr. Wallis This procedure was performed on Saturday, October 12, 2019. My impressions and recommendations are as follows: Impressions : - The examination was otherwise normal on direct and retroflexion views. - No specimens collected. Recommendations : - Discharge patient to home. - Resume previous diet. - Continue present medications. - Repeat colonoscopy in 10 years for screening purposes. - Return to primary care physician (date not yet determined). My findings are described in the full procedure note, which is enclosed. If I can be of further assistance, please feel free to contact me at Doctor phone number(s): , Fax: [phone], Work: . Sincerely, MD Richi Stuart MD 10/12/2019 9:21:50 AM This report has been signed electronically.
[2019-10-12 09:23] VITALS: BP 155/53; BP 222/67; PULSE 64; RESP 18; TEMP 36.2; O2SAT 97
[2019-10-12 09:25] VITALS: BP 174/45; BP 222/67; PULSE 65; RESP 16; O2SAT 96
[2019-10-12 09:30] VITALS: BP 182/73; BP 222/67; PULSE 68; RESP 16; O2SAT 97
[2019-10-12 09:34] VITALS: BP 169/75; BP 222/67; PULSE 71; RESP 16; TEMP 36.4; O2SAT 97
[2019-10-12 09:57] VITALS: BP 222/67
== END 2019-10-12 10:03 | disposition home or self-care (01) ==
LOC: EN 07:44 → AC 07:46
PROVIDERS: Anesthesiology; PCP Internal Medicine; Referring Provider Internal Medicine; Visit Provider Surgery
PROC: 0DJD8ZZ Inspection of Lower Intestinal Tract, Via Natural or Artificial Opening Endoscopic (ICD-10-PCS; CPT 45378; principal; 2019-10-12 08:55)
DX: K29.50 Unspecified chronic gastritis without bleeding (principal); D50.9 Iron deficiency anemia, unspecified; K31.7 Polyp of stomach and duodenum; R19.5 Other fecal abnormalities; D63.1 Anemia in chronic kidney disease; K21.9 Gastro-esophageal reflux disease without esophagitis; G47.33 Obstructive sleep apnea (adult) (pediatric); E78.5 Hyperlipidemia, unspecified; I12.9 Hypertensive chronic kidney disease with stage 1 through stage 4 chronic kidney disease, or unspecified chronic kidney disease; E66.01 Morbid (severe) obesity due to excess calories; I70.1 Atherosclerosis of renal artery; M06.9 Rheumatoid arthritis, unspecified; N18.2 Chronic kidney disease, stage 2 (mild); Z79.4 Long term (current) use of insulin; Z88.1 Allergy status to other antibiotic agents; Z88.6 Allergy status to analgesic agent; Z88.8 Allergy status to other drugs, medicaments and biological substances
CPT/HCPCS: 43239; 45378; 82962; 87635; 88305; 88342; 94799; J7120; J2405; U0003

== ENCOUNTER → 2019-10-20 13:36 | Outpatient (CLI) | payer MEDICARE, SELFPAY ==
[2019-10-12 08:31] VITALS: BMI 35.1
[2019-10-20 15:29] LABS: Absolute Neutrophil Count 4.5 X10^3/uL (2.0-7.7); Basophil# 0.02 X10^3/uL; Basophil% 0.3 % (0-1); Eosinophil# 0.38 X10^3/uL; Eosinophils% 5.7 % (0-5); Hematocrit 30.1 % (37-47); Lymphocyte % 15.1 % (19-41); Mean Corp Hgb Conc 33.2 g/dL (32-36); Mean Corpuscular Hgb 30.2 pg (27.0-32.0); Mean Corpuscular Volume 90.9 fL (81-99); Mean Platelet Vol. 11.5 fl (6.2-12.0); Monocyte# 0.67 X10^3/uL; Monocyte% 10.1 % (0-10); NRBC Flagged by Analyzer 0 % (0-5); Neutrophil # 4.54 X10^3/uL (2.7-7.7); Neutrophil % 68.3 % (47-70); Platelet Count 139 K/mm3 (150-450); RBC Distribution Width CV 12.6 % (11.6-14.6); RBC Distribution Width SD 41.9 fl (35.1-43.9); Red Blood Count 3.31 M/mm3 (4.2-5.4); White Blood Count 6.6 K/mm3 (4.4-11.0)
[2019-10-20 15:41] LABS: ALB/GLOB Ratio 1.1 RATIO (0.9-2.4); AST(SGOT) 29 U/L (15-37); Alanine Aminotransfer ALT/SGPT 37 U/L (13-56); Albumin, Serum 3.5 g/dL (3.2-5.0); Alkaline Phosphatase 64 U/L (45-117); Anion Gap 5 (5-15); BUN 40 mg/dL (7-18); Calcium,Total 8.8 mg/dL (8.5-10.1); Chloride 112 mmol/L (98-107); EST Glomerular Filtration Rate 20 mL/min (>60); Est Glom Filt Rate - Afr Amer 24 mL/min (>60); Globulin 3.2 g/dL (2.2-4.2); Glucose 157 mg/dL (74-106); Potassium 3.7 mmol/L (3.5-5.1); Protein, Total 6.7 g/dL (6.4-8.2); Sodium Level 142 mmol/L (136-145)
[2019-10-20 15:44] LABS: LDH 261 U/L (84-246)
== END ==
PROVIDERS: Internal Medicine Medical Oncology; PCP Internal Medicine; Referring Provider Internal Medicine Rheumatology; Visit Provider Internal Medicine Rheumatology
DX: L40.59 Other psoriatic arthropathy (principal); M79.7 Fibromyalgia; M17.0 Bilateral primary osteoarthritis of knee; L40.8 Other psoriasis; M65.30 Trigger finger, unspecified finger; M47.897 Other spondylosis, lumbosacral region; K21.0 Gastro-esophageal reflux disease with esophagitis; E11.9 Type 2 diabetes mellitus without complications; I10 Essential (primary) hypertension
CPT/HCPCS: 36415; 80053; 83615; 85025

== ENCOUNTER → 2019-12-25 10:56 | Outpatient (CLI) | payer MEDICARE, SELFPAY ==
[2019-11-23 10:54] VITALS: BMI 35.2
[2019-12-25 12:16] LABS: Absolute Lymphocyte Count 0.92 X10^3/uL (0.83-4.51); Absolute Neutrophil Count 6.9 X10^3/uL (2.0-7.7); Basophil# 0.03 X10^3/uL; Basophil% 0.3 % (0-1); Eosinophil# 0.46 X10^3/uL; Hematocrit 29.4 % (37-47); Hemoglobin 9.6 g/dL (12.0-15.0); Lymphocyte # 0.92 X10^3/ul (4.0); Lymphocyte % 10.1 % (19-41); Mean Corp Hgb Conc 32.7 g/dL (32-36); Mean Corpuscular Hgb 30.8 pg (27.0-32.0); Mean Corpuscular Volume 94.2 fL (81-99); Mean Platelet Vol. 11.5 fl (6.2-12.0); Monocyte# 0.76 X10^3/uL; Monocyte% 8.3 % (0-10); NRBC Flagged by Analyzer 0 % (0-5); Neutrophil # 6.92 X10^3/uL (2.7-7.7); Neutrophil % 76.1 % (47-70); Platelet Count 156 K/mm3 (150-450); RBC Distribution Width CV 12.9 % (11.6-14.6); Red Blood Count 3.12 M/mm3 (4.2-5.4); White Blood Count 9.1 K/mm3 (4.4-11.0)
[2019-12-25 12:32] LABS: ALB/GLOB Ratio 1.1 RATIO (0.9-2.4); AST(SGOT) 25 U/L (15-37); Alanine Aminotransfer ALT/SGPT 34 U/L (13-56); Albumin, Serum 3.6 g/dL (3.2-5.0); Alkaline Phosphatase 66 U/L (45-117); Anion Gap 9 (5-15); BUN 53 mg/dL (7-18); BUN/Creat Ratio 15.5 RATIO (10-20); Calcium,Total 8.7 mg/dL (8.5-10.1); Chloride 111 mmol/L (98-107); Creatinine, Serum 3.41 mg/dL (0.55-1.02); EST Glomerular Filtration Rate 14 mL/min (>60); Est Glom Filt Rate - Afr Amer 17 mL/min (>60); Globulin 3.2 g/dL (2.2-4.2); Glucose 160 mg/dL (74-106); Potassium 4.3 mmol/L (3.5-5.1); Protein, Total 6.8 g/dL (6.4-8.2); Sodium Level 142 mmol/L (136-145)
== END ==
PROVIDERS: PCP Internal Medicine; Referring Provider Internal Medicine Rheumatology; Visit Provider Internal Medicine Rheumatology
DX: L40.59 Other psoriatic arthropathy (principal); M79.7 Fibromyalgia; M17.0 Bilateral primary osteoarthritis of knee; L40.8 Other psoriasis; M65.30 Trigger finger, unspecified finger; M47.897 Other spondylosis, lumbosacral region; E11.9 Type 2 diabetes mellitus without complications; I10 Essential (primary) hypertension
CPT/HCPCS: 36415; 80053; 85025

== ENCOUNTER → 2020-01-12 09:43 | Outpatient (CLI) | payer MEDICARE, SELFPAY ==
[2019-08-14 10:57] VITALS: BMI 35.4
[2019-11-23 10:54] VITALS: BMI 35.2
[2020-01-12 12:23] LABS: Hematocrit 28.4 % (37-47); Hemoglobin 9.2 g/dL (12.0-15.0); Mean Corp Hgb Conc 32.4 g/dL (32-36); Mean Corpuscular Hgb 30.5 pg (27.0-32.0); Mean Platelet Vol. 11.4 fl (6.2-12.0); Platelet Count 147 K/mm3 (150-450); RBC Distribution Width CV 12.6 % (11.6-14.6); RBC Distribution Width SD 43.5 fl (35.1-43.9); Red Blood Count 3.02 M/mm3 (4.2-5.4); White Blood Count 7.5 K/mm3 (4.4-11.0)
[2020-01-12 12:41] LABS: Albumin, Serum 3.5 g/dL (3.2-5.0); BUN 61 mg/dL (7-18); Calcium,Total 8.6 mg/dL (8.5-10.1); Chloride 115 mmol/L (98-107); EST Glomerular Filtration Rate 17 mL/min (>60); Est Glom Filt Rate - Afr Amer 21 mL/min (>60); Glucose 166 mg/dL (74-106); Potassium 4.3 mmol/L (3.5-5.1); Sodium Level 145 mmol/L (136-145)
[2020-01-12 12:42] LABS: PTHIN 208.7 pg/mL (18.4-80.1)
== END ==
PROVIDERS: PCP Internal Medicine; Referring Provider Internal Medicine Nephrology; Visit Provider Internal Medicine Nephrology
DX: N18.4 Chronic kidney disease, stage 4 (severe) (principal)
CPT/HCPCS: 36415; 80069; 83970; 85027

== ENCOUNTER 2020-03-09 12:06 | Observation (INO) | payer MEDICARE, SELFPAY ==
[2020-03-09] VITALS (13 sets, daily range): BP systolic 180–211; BP diastolic 48–67; PULSE 63–83; RESP 16–69; TEMP 35.8–37.6; O2SAT 93–100; BMI 38.2; BMI 40.2; BMI 37.9
--- NOTE | 2020-03-09 12:09 | EKG12_ITS ---
Test Reason : CODE BLUE Blood Pressure : / mmHG Vent. Rate : 072 BPM Atrial Rate : 072 BPM P-R Int : 136 ms QRS Dur : 094 ms QT Int : 458 ms P-R-T Axes : 063 053 111 degrees QTc Int : 501 ms Suspect unspecified pacemaker failure Normal sinus rhythm Nonspecific ST and T wave abnormality Prolonged QT Abnormal ECG Confirmed by CINDY BALTAZAR, BRYAN ([id number]), managing editor JAN URBAN ([id number]) on 03/11/2020 8:38:18 AM Referred By: IMELDA Confirmed By:BRYAN WHITE MD
--- NOTE | 2020-03-09 12:09 | CT_ITS ---
STUDY: CT CERVICAL SPINE WITHOUT CONTRAST REASON FOR EXAM: Female, 74 years old. PATIENT HAD A SYNCOPAL EPISODE FELL AND CODED. RADIATION DOSAGE (If Supplied By Facility): CTDIvol = ( 33.61 ) mGy, DLP = ( 842.55 ) mGycm TECHNIQUE: High resolution transaxial imaging was performed without contrast material. Sagittal and coronal images were reconstructed. Individualized dose optimization techniques were used for this CT. COMPARISON: None FINDINGS: Normal craniovertebral junction. There are degenerative changes of the anterior atlantoaxial articulation. Normal odontoid process. Normal cervical lordosis. Normal vertebral bodies and posterior osseous elements. C2-3: Normal endplates. Normal disc height and morphology. Normal central canal and intervertebral neuroforamina. C3-4: Normal endplates. Normal disc height and morphology. Normal central canal and intervertebral neuroforamina. C4-5: Normal endplates. Normal disc height and morphology. Normal central canal and intervertebral neuroforamina. C5-6: Moderate degree of disc space narrowing. Uncovertebral arthrosis. Mild degree of bilateral neural foraminal stenosis. C6-7: Moderate degree of disc space narrowing. Spondylosis. No significant stenosis is seen. C7-T1: Normal endplates. Normal disc height and morphology. Normal central canal and intervertebral neuroforamina. Normal visualized soft tissue structures. CT/Spine Cervical without Contras IMPRESSION: Multilevel degenerative changes, as described above. Electronically Signed: Warren Coombs, at 13:20 EST , Service support ,
--- NOTE | 2020-03-09 12:10 | CM.ED ---
Social Work Responding to Code Blue. Patient spouse present, Marcos. Support provided. Marcos wanting to be with patient in room. This social worker palliative care facilitated Marcos being with patient in room. Will continue to follow as needed. Juli MONTENEGRO, SERENITY
--- NOTE | 2020-03-09 12:20 | CM.ED ---
Social Work This social services assistant following up with patient spouse, Marcos in room. Patient is now speaking with staff and alert. Marcos reports I am doing fine. Marcos reports understanding of current situation and plan of care. Juli MONTENEGRO, SERENITY
--- NOTE | 2020-03-09 12:42 | CHAPLAIN ---
Type of Pastoral Visit ___ Initial Visit ___ Follow-up Visit ___ On-call Visit ___ General Patient Visit ___ Spiritual Assessment ___ Family Conference ___ Bereavement ___ Rapid Response _x__ Code Blue ___ Other (describe below) Pastoral Care Referral From ___ Patient ___ Family ___ Nurse ___ Physician ___ Dressing Room Porter ___ Sculpture Conservator _x__ Other (describe below) Sacrament/Intervention ___ Active listening ___ Anointing ___ Nondenominational ___ Bereavement ___ Communion ___ Asya exploration ___ ___ Life review ___ Prayer ___ Reconciliation ___ Sacrament of Sick _x__ Supportive presence ___ Wedding ___ Other (describe below) Pastoral Comments on stand by as medical team worked on patient; spouse had been offered support by JOSE DAVID and he was in room with the patient during life saving measures; pt responded to measures; JOSE DAVID states that spouse appears to be doing ok; reminded staff of availability of this industrial electrical engineer as needed
--- NOTE | 2020-03-09 12:45 | CT_ITS ---
STUDY: CT BRAIN WITHOUT CONTRAST REASON FOR EXAM: Female, 74 years old. PATIENT HAD A SYNCOPAL EPISODE FELL AND CODED. RADIATION DOSAGE (If Supplied By Facility): CTDIvol = ( 44.99 ) mGy, DLP = ( 779.24 ) mGycm TECHNIQUE: Transaxial CT imaging of the brain was performed without administration of intravenous contrast material. Individualized dose optimization techniques were used for this CT. COMPARISON: No relevant priors. FINDINGS: Normal soft tissue structures. There is hyperostosis frontalis internus. There is mild cerebral atrophy with widening of the extra-axial spaces and ventricular dilatation. There are areas of decreased attenuation within the white matter tracts of the supratentorial brain, consistent with microvascular disease changes. Stable old lacunar infarct in the left basal ganglion. Normal brainstem. Normal cerebellum. There is no intracranial hemorrhage. There are no findings of an acute ischemic infarction. Normal visualized paranasal sinuses. CT/Brain/Head without Contrast IMPRESSION: Chronic involutional changes of the brain. Electronically Signed: Warren Coombs, at 13:08 EST , Service support ,
[2020-03-09 12:46] LABS: Absolute Lymphocyte Count 0.91 X10^3/uL (0.83-4.51); Absolute Neutrophil Count 6.4 X10^3/uL (2.0-7.7); Basophil# 0.06 X10^3/uL; Basophil% 0.7 % (0-1); Eosinophil# 0.96 X10^3/uL; Eosinophils% 10.6 % (0-5); Hematocrit 26.9 % (37-47); Hemoglobin 8.5 g/dL (12.0-15.0); Lymphocyte # 0.91 X10^3/ul (4.0); Mean Corp Hgb Conc 31.6 g/dL (32-36); Mean Corpuscular Hgb 30.2 pg (27.0-32.0); Mean Corpuscular Volume 95.7 fL (81-99); Mean Platelet Vol. 11.5 fl (6.2-12.0); Monocyte# 0.59 X10^3/uL; Monocyte% 6.5 % (0-10); NRBC Flagged by Analyzer 0 % (0-5); Neutrophil # 6.38 X10^3/uL (2.7-7.7); Neutrophil % 70.1 % (47-70); Platelet Count 140 K/mm3 (150-450); RBC Distribution Width CV 14.5 % (11.6-14.6); RBC Distribution Width SD 50.7 fl (35.1-43.9); Red Blood Count 2.81 M/mm3 (4.2-5.4); White Blood Count 9.1 K/mm3 (4.4-11.0)
[2020-03-09 12:48] LABS: Anion Gap 11 (5-15); BUN 47 mg/dL (7-18); BUN/Creat Ratio 15.9 RATIO (10-20); Chloride 116 mmol/L (98-107); Creatinine, Serum 2.96 mg/dL (0.55-1.02); EST Glomerular Filtration Rate 17 mL/min (>60); Est Glom Filt Rate - Afr Amer 20 mL/min (>60); Estimated Creatinine Clearance 14.62 ml/min; Glucose 216 mg/dL (74-106); Potassium 3.9 mmol/L (3.5-5.1); Sodium Level 142 mmol/L (136-145)
--- NOTE | 2020-03-09 12:55 | RAD_ITS ---
STUDY: X-RAY CHEST REASON FOR EXAM: Female, 74 years old. Syncope TECHNIQUE: Single AP portable view of the chest. COMPARISON: Comparison is made with prior study 12/08/2018. FINDINGS: EKG electrodes are seen. The lungs are clear and expanded. There is no demonstrated pleural abnormality. There is mild cardiac enlargement. Normal mediastinum and everardo. Normal visualized pulmonary arteries. There is atherosclerotic calcification of the aortic arch with tortuosity. There are diffuse degenerative changes of the visualized thoracic spine. Normal visualized ribs, clavicles, and shoulders. There is no demonstrated abnormality of the visualized soft tissue structures of the upper abdomen. RAD/Chest 1 View (Portable) IMPRESSION: Cardiomegaly. The lungs are clear. Electronically Signed: Warren Coombs, at 13:45 EST , Service support ,
--- NOTE | 2020-03-09 13:12 | ED.DCSUM_ITS ---
- ER Visit Summary Date of Service: 03/09/20 Chief Complaint: [Unresponsive episode] History of Present Illness: The patient is a 74 F [presents to the emergency department after sustaining an unresponsive episode today. Patient apparently was getting an injection of Neupogen and after 20 minutes left the department and was leaving the hospital to go out to the car where her was waiting and apparently she collapsed and hit her head on the side of the car. I have a rapid response team was called and on arrival nursing staff stated that the patient had agonal respirations and a thready pulse. Patient was attempting to speak and answer questions but then apparently became completely unresponsive on route to the hospital emergency department and lost the pulse therefore CPR was initiated by nursing staff. CPR was in progress as patient arrived. states that she had otherwise been feeling well and has not been feeling ill recently. Patient does have history of hypertension, diabetes, chronic kidney disease, and history of CHF. I had the staff discontinue CPR and transfer her to our cot and we were preparing to intubate the patient. When we placed her on her monitor patient had a normal sinus rhythm and when we felt for pulse she had a normal carotid as well as radial and femoral pulse therefore CPR was discontinued. Patient began to open her eyes and answer questions. GCS went from initially a 3 to 15 in short order.] Patient denied any chest pain or headache or any complaints. When security reviewed the videotape she was noted that patient struck her head on the car. Physical Examination: [HEENT-PERRLA, EOMI. Cranial nerves II through XII grossly intact. TMs clear. Mucous membranes moist. No adenopathy. No external evidence of trauma to her head. Cardiovascular-regular rate and rhythm without murmur or ectopy Lungs-clear to auscultation, chest wall stable without crepitus or subcu emphysema Abdomen-normoactive bowel sounds, soft, nontender, no rebound or rigidity, no peritoneal signs. Patient had a small area of ecchymosis to her abdomen. SPECT the ecchymosis is from insulin injections. Extremities-intact ?4, normal range of motion, normal pulses, atraumatic] Test Results: [EKG obtained arrival shows sinus rhythm with a ventricular rate of [address] changes. CBC with differential showed a white count 9.1, hemoglobin 8.5, hematocrit 27, plates 140. Chemistries unremarkable. BUN was 47 and creatinine 2.96. Troponin was less than 0.015. CT scan of the brain without contrast was obtained which on my interpretation I do not appreciate any intracranial hemorrhage or skull fracture however official report from radiology pending. CT of the C-spine obtained interpreted by myself initially as degenerative changes without evidence of fractures or dislocations and again official radiology report pending. Chest x-ray obtained read by myself as poor inspiration with some mild cardiomegaly and without any evidence of pneumothorax or acute disease process. Official radiology report pending.] Emergency Department Course and Treatment: [Line established. Patient placed on a criminal justice professor.] Treatment Plan: [Admit] Disposition: [Admit] Impression: [Syncope-etiology uncertain Closed head injury Renal insufficiency Closed head injury] This note was generated with Be Spotted dictation software. It may contain incorrect words, spelling, and punctuation that were not noted in review of the chart prior to signing ED Disposition - Plan for ED Patient: Referrals: Hamzah Wallis MD [Primary Care Provider] -
--- NOTE | 2020-03-09 13:24 | NURSING ---
1145 PERSONAL SERVICE REPRESENTATIVE CALLED 1153 CODE BLUE CALLED BOTH BEFORE PATIENT CAME TO ER
--- NOTE | 2020-03-09 13:25 | NURSING ---
PCU KARINE OBS SYNCOPE, RENAL INSUFFICIENCY, HEAD INJURY
--- NOTE | 2020-03-09 13:31 | NURSING ---
DR MILTON IN ROOM
[2020-03-09] MEDS: 0.9% Normal Saline 1,000 ML 150 ML IV (13:34)
--- NOTE | 2020-03-09 13:44 | HP.PCM_ITS ---
Problem List (1) Dyspnea on minimal exertion Status: Chronic (2) Type 2 diabetes mellitus Status: Chronic Qualifiers: (3) Anemia Status: Chronic Qualifiers: (4) GI bleed Status: Resolved Qualifiers: (5) Gastritis determined by endoscopy Status: Chronic (6) Chronic diastolic (congestive) heart failure Status: Chronic (7) Secondary pulmonary arterial hypertension Status: Chronic (8) Essential (primary) hypertension Status: Chronic (9) HLD (hyperlipidemia) Status: Chronic Qualifiers: Comment: (10) Chronic renal failure, stage 4 (severe) Status: Chronic (11) KHANG (obstructive sleep apnea) Status: Chronic (12) Hypersomnolence Status: Chronic (13) Bilateral edema of lower extremity Status: Chronic (14) Syncope Status: Acute History of Present Illness Date of Admission: 03/09/20 Chief Complaint: syncope The patient is a 74 year old F leaving the infusion center where she had received Epo. Patient was feeling unsteady and not well. Was rest herself against a wall. Patient was good to be picked up by her and then she passed out. A rapid response team was called. No pulse was obtained and CPR was initiated. Patient was sent to the emergency room where she was found to be in normal sinus rhythm and did have a pulse. CPR was discontinued. Patient was alert and oriented shortly thereafter. Patient was actually hypertensive in the emergency room with systolics over 200. Patient has no recollection of the events. Patient states that she has been chronically short of breath with exertion. She denies any fever chills nor any contact with anyone with COVID- 19. [] Past Medical History Past Medical History (Chronic Problems): Chronic Problems (Last Reviewed 03/09/20 @ 10:15 by Ani Davalos) Dyspnea on minimal exertion (Chronic) Type 2 diabetes mellitus (Chronic) Anemia (Chronic) Gastritis determined by endoscopy (Chronic) Chronic diastolic (congestive) heart failure (Chronic) Secondary pulmonary arterial hypertension (Chronic) Essential (primary) hypertension (Chronic) HLD (hyperlipidemia) (Chronic) Chronic renal failure, stage 4 (severe) (Chronic) KHANG (obstructive sleep apnea) (Chronic) Hypersomnolence (Chronic) Bilateral edema of lower extremity (Chronic) Medical History: Medical History (Last Reviewed 03/09/20 @ 13:[address] Bebeto Lubin DO) Chronic diastolic (congestive) heart failure (Chronic) I50.32 Secondary pulmonary arterial hypertension (Chronic) I27.21 Essential (primary) hypertension (Chronic) I10 HLD (hyperlipidemia) (Chronic) E78.5 Chronic renal failure, stage 4 (severe) (Chronic) N18.4 KHANG (obstructive sleep apnea) (Chronic) G47.33 Hypersomnolence (Chronic) G47.10 Bilateral edema of lower extremity (Chronic) R60.0 Diverticular disease K57.90 Hyperkalemia E87.5 Hyperparathyroidism E21.3 Anemia of chronic disease D63.8 Chronic osteoarthritis M19.90 GERD (gastroesophageal reflux disease) K21.9 History of diverticulosis Z87.19 Left carotid bruit R09.89 Morbid obesity E66.01 BMI 39 on 12/08/18 Neuropathy G62.9 Psoriasis L40.9 Renal artery atherosclerosis I70.1 moderate 3 renal arteries on left, anatomical variation Rheumatoid arthritis M06.9 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 multiple lacunar strokes related to HTN left tongue deviation Type 2 diabetes mellitus treated with insulin E11.9, Z79.4 Acute on chronic diastolic (congestive) heart failure (Resolved) I50.33 HTN (hypertension), malignant (Resolved) I10 5 drug therapy Hx of mini strokes Uncontrolled hypertension I10 Allergies calcium Allergy (Unknown, Verified 03/09/20 12:28) constipation furosemide Allergy (Unknown, Verified 03/09/20 12:28) Constpation amiloride Allergy (Verified 03/09/20 12:28) NEEDS FOLLOW-UP azithromycin [From Zithromax Z-Rickey] Allergy (Verified 03/09/20 12:28) NEEDS FOLLOW-UP bumetanide Allergy (Verified 03/09/20 12:28) Unknown chlorthalidone Allergy (Verified 03/09/20 12:28) Unknown clonidine HCl [From Catapres] Allergy (Verified 03/09/20 12:28) Rash diltiazem Allergy (Verified 03/09/20 12:28) Unknown gemfibrozil Allergy (Verified 03/09/20 12:28) Unknown hydralazine [Hydralazine] Allergy (Verified 03/09/20 12:28) Swelling lisinopril Allergy (Verified 03/09/20 12:28) NEEDS FOLLOW-UP losartan [Losartan] Allergy (Verified 03/09/20 12:28) Unknown minoxidil Allergy (Verified 03/09/20 12:) Unknown nifedipine Allergy (Verified 03/09/20:) Unknown simvastatin [From Zocor] Allergy (Verified 03/09/20) Unknown triamterene [From Dyazide] Allergy (Verified 03/09/20:) Unknown valdecoxib [From Bextra] Allergy (Verified 03/09/20 12:) Unknown verapamil [Verapamil] Allergy (Verified 03/09/20) Unknown atorvastatin Adverse Reaction (Unknown, Verified 03/09/20) Swelling and cramping of the legs clonidine [From Catapres] Adverse Reaction (Unknown, Verified 03/09/20:) Unknown esomeprazole [From Nexium] Adverse Reaction (Unknown, Verified 03/09/20) Swelling metformin [From Glucophage] Adverse Reaction (Unknown, Verified 03/09/20) Other kidney fxn worsened rosuvastatin [From Crestor] Adverse Reaction (Unknown, Verified 03/09/20) leg cramps/ swelling atorvastatin calcium [From Lipitor] Adverse Reaction (Verified 03/09/20:) Leg cramps/aching celecoxib [From Celebrex] Adverse Reaction (Verified 03/09/20:) Leg aching hydrochlorothiazide Adverse Reaction (Verified 03/09/20:) Legs aching indapamide Adverse Reaction (Verified 03/09/20:) Other insulin detemir [From Levemir] Adverse Reaction (Verified 03/09/20:) Unknown lansoprazole [From Prevacid] Adverse Reaction (Verified 03/09/20:) Legs aching metformin HCl [From Glucophage] Adverse Reaction (Verified 03/09/20 12:) Diarrhea pravastatin Adverse Reaction (Verified 03/09/20 12:) Legs aching rosuvastatin calcium [From Crestor] Adverse Reaction (Verified 03/09/20:) Legs aching Home Medications: Ambulatory Orders Medication Instructions Recorded Ubidecarenone [Coq-10] 100 mg PO DAILY 09/11/19 Multivit-Min/FA/Lycopen/Lutein 1 tab PO DAILY 09/15/19 [Centrum Silver Tablet] atorvastatin 10 mg tablet 10 mg PO QHS #90 tab 09/29/19 calcitriol 0.25 mcg capsule 0.25 mcg PO DAILY #90 cap 09/29/19 duloxetine 30 mg capsule,delayed 30 mg PO DAILY #90 cap 09/29/19 release sitagliptin 100 mg tablet 100 mg PO DAILY #90 tab 09/29/19 Doxazosin Mesylate [Cardura] 4 mg PO BID 10/06/19 Hydroxychloroquine [Plaquenil] 200 mg PO BIDCM 10/06/19 Iron,Carbonyl [Carbonyl Iron] 65 mg PO DAILY 10/06/19 hydralazine 100 mg tablet 100 mg PO TID #270 tab 10/28/19 furosemide 40 mg tablet 20 mg PO DAILY tab 11/03/19 omeprazole 20 mg capsule,delayed 20 mg PO DAILY cap 11/13/19 release tramadol 50 mg tablet 50 mg PO TID PRN tab 11/13/19 carvedilol 25 mg tablet 25 mg PO BID #180 tab 01/13/20 Ascorbate Calcium/Bioflavonoid 1 tab PO DAILY 03/09/20 [Jeannette-C 500 mg Tablet] Insulin Glargine [Lantus SoloStar 38 unit SC DAILY 03/09/20 Pen] Isosorbide Mononitrate [Isosorbide 60 mg PO DAILY 03/09/20 Mononitrate ER] Valsartan [Diovan] 160 mg PO DAILY 03/09/20 Surgical History: Surgical History (Last Reviewed 03/09/20 @ 13:[address] Bebeto Lubin DO) History of appendectomy Z90.49 S/P breast lumpectomy Z98.890 benign gallbladder removed surgery on finger due to infection Surgical History: appendectomy, cholecystectomy Psychiatric History: 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psych hx [employer] History: 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[employer] history Smoking Status: Never smoker - *Family History Maternal Family History: Family History (Last Reviewed 03/09/20 @ 13:[address] Bebeto Lubin DO) Mother Diabetes Heart disease CVA (cerebral vascular accident) Myocardial infarction Father Cancer Brother Kidney disease Sister Diabetes Hypertension Mother Diabetes Heart disease CVA (cerebral vascular accident) Myocardial infarction Father Cancer Sister Hypertension Diabetes History Items: 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history Review of Systems Constitutional: Denies: Anorexia, Chills, Fever, Night Sweats Eyes: Denies: Blurred vision, Double vision HEENT: Denies: Head Aches, Sinus Congestion, Sinus Drainage Cardiovascular: Denies: Chest Pain, Palpitations Respiratory: Reports: Shortness of breath upon exertion. Denies: Cough, Shortness of breath at rest, Sputum production Gastrointestinal: Denies: Abdominal Pain, Nausea, Vomiting Genitourinary: Denies: Dysuria Musculoskeletal: Denies: Joint Pain, Joint Tenderness Skin: Denies: Rash, Wounds Neurological: Denies: Numbness, Tingling, Focal weakness Comment: All review of systems were negative except as mentioned above in the history of present illness and the other review of systems. VTE Information - Inpt Only VTE Present on Admission: No VTE Mechan Device Prophylaxis: None VTE Pharm Prophylaxis ordered?: No Reason prophylaxis not ordered:: Treatment Not Indicated - Physical Exam Vitals/I&O's: Vital Signs Temp Pulse Resp BP Pulse Ox 36.1 C L 65 17 180/61 H 97 03/09/20 12:33 03/09/20 13:32 03/09/20 13:32 03/09/20 13:32 03/09/20 13:32 Oxygen Flow Rate (L/min) 2 Oxygen Delivery Method Nasal Cannula Weight: 106.3 kg Body Mass Index (BMI) 40.2 Finger Stick Blood Glucose 175 General: Alert, Cooperative, No apparent distress HEENT: Atraumatic, PERRLA, EOMI, Normocephalic Oral: Moist Mucosa, No Gingival or Mucosal Lesions/ Ulcerations Neck: No Nodes, Thyroid Normal Size and Texture Lungs: Clear to auscultation, Normal air movement, No rhonchi, No wheeze, No rales Cardiovascular: Regular rate, Regular Rhythm, Normal S1, Normal S2 Abdomen: Bowel Sounds Present, Soft, Non Tender, Non-Distended, No Hepato- splenomegaly Extremities: No edema, No Calf Tenderness Skin: No rashes, No breakdown Musculoskeletal: No Tenderness to Palpation of Joints or Extremities, No Muscle Wasting Neurological: Cranial nerves II-XII grossly intact, Motor Exam 5/5 strength throughout, Muscle tone normal Psych/Mental Status: Appropriate, Flat Affect Laboratory Results 03/09/20 12:14: WBC 9.1, RBC 2.81 L, Hgb 8.5 L, Hct 26.9 L, MCV 95.7, MCH 30.2, MCHC 31.6 L, RDW Std Deviation 50.7 H, RDW Coeff of Pepe 14.5, Plt Count 140 L, MPV 11.5, Immature Gran % (Auto) 2.100 H, Neut % (Auto) 70.1 H, Lymph % (Auto) 10.0 L, [place] % (Auto) 6.5, Eos % (Auto) 10.6 H, Baso % (Auto) 0.7, Absolute Neuts (auto) 6.4, Absolute Lymphs (auto) 0.91, Nucleated RBC % 0 03/09/20 12:14: Sodium 142, Potassium 3.9, Chloride 116 H, Carbon Dioxide 15.0 L , Anion Gap 11, BUN 47 H, Creatinine 2.96 H, Estim Creat Clear Calc 14.62, Est GFR (MDRD) Af Amer 20 L, Est GFR (MDRD) Non-Af 17 L, BUN/Creatinine Ratio 15.9, Glucose 216 H, Calcium 8.0 L, Troponin I < 0.015 EKG reviewed and showed normal sinus rhythm with some baseline artifact and some PVCs. No other acute changes noted. Chest x-ray reviewed and showed no acute infiltrate or pulmonary vascular congestion. Clinical Impression(s) from Imaging Studies Cervical Spine CT 03/09/20 12:09 IMPRESSION: Multilevel degenerative changes, as described above. Electronically Signed: Warren Coombs, at 13:20 EST , Service support , Brain CT 03/09/20 12:45 IMPRESSION: Chronic involutional changes of the brain. Electronically Signed: Warren Coombs, at 13:08 EST , Service support , Chest X-Ray 03/09/20 12:55 IMPRESSION: Cardiomegaly. The lungs are clear. Electronically Signed: Warren Coombs, at 13:45 EST , Service support , Current Medications Sodium Chloride () 1,000 mls @ 150 mls/hr IV .[id number] JUANITA Last Admin: 03/09/20 13:34 Dose: 150 mls/hr Documented by: Assessment/Plan All Active Problems (Last Reviewed 03/09/20 @ 10:15 by Ani Davalos) GI bleed (Resolved) Syncope (Acute) Acute on chronic diastolic (congestive) heart failure (Resolved) Chest pain (Resolved) HTN (hypertension), malignant (Resolved) 1. syncope: suspect vasovagal. Rule infectious etiology: COVID 19 and UTI. Check orthostatic vital signs. Hold furosemide. CPR performed in field, but likely could not palpate weak pulse rather than cardiopulmonary arrest given rapid resolution of symptoms. Monitor on telemetry. Cycle troponins. Check echo (last done Dec 2018). Was feeling short of breath with ambulation (chronic), check ambulatory pulse ox prior to dc. 2. HTN urgency: likely was hypotensive during event. Continue home meds (carvedilol, dardura, hydralazine, idsosorbide and valsartan. PRN IV hydralazine. 3. DM2: insulin-dependent. continue basal insulin + SSI. 4. Anemia: received Epo today. Doubt a factor into her presentation. Monitor H/H. 5. VTE prophylaxis: not indicated as she is observation status at this time. 6. Advanced care planning: pt unsure. Will leave as full code at this time. OBSV E&M: [id number] Initial observation care L3
--- NOTE | 2020-03-09 16:14 | ECHOD_ITS ---
Reason For Study: syncope Procedure This was a 2D Doppler, Color Flow transthoracic echocardiogram. The study was technically difficult. Due to body habitus. Left Ventricle Normal LV size. Moderate concentric left ventricular hypertrophy. Left ventricular systolic function is normal. The estimated ejection fraction is 65 %. Stage 2 diastolic dysfunction. No regional wall motion abnormalities noted. Right Ventricle Normal RV size. Normal systolic function. Atria The left atrium is mildly enlarged. Normal right atrium. Mitral Valve Bileaflet diffuse mitral valve thickening. Mild (1+) eccentric mitral valve insufficiency. Tricuspid Valve Normal tricuspid valve. Mild to moderate (1-2+) tricuspid valve insufficiency. Pulmonary artery systolic pressure is 52 mmHg. Aortic Valve Normal aortic valve. Pulmonic Valve Normal pulmonic valve. Great Vessels Normal aortic root. The pulmonary artery is normal size. Normal inferior vena cava. Pericardium/Pleural Small pericardial effusion. MMode/2D Measurements & Calculations LVIDd: 5.4 cm IVSd: 1.4 cm Ao root diam: 3.0 cm LVIDs: 3.5 cm LVPWd: 1.2 cm FS: 35.3 % LAV(MOD-bp): 83.0 ml LA A4 area: 24.5 cm2 LA dimension(2D): 4.5 cm LAV(MOD-bp) Indexed: 39.7 ml/m2 LAV(MOD-sp2): 77.8 ml LAV(MOD-sp4): 79.7 ml Time Measurements MV dec time: 0.21 sec Doppler Measurements & Calculations MV E max oj: 119.7 cm/sec Lat Peak E' Oj: 7.0 cm/sec Med Peak E' Oj: 6.0 cm/sec MV A max oj: 85.3 cm/sec E/E' lat: 17.2 E/E' med: 19.9 MV E/A: 1.4 Ao V2 max: 151.2 cm/sec LV V1 max: 105.8 cm/sec PA V2 max: 113.0 cm/sec Ao max P.1 mmHg LV V1 max P.5 mmHg TR max oj: 344.9 cm/sec TR max P.6 mmHg Interpretation Summary Normal LV size. Moderate concentric left ventricular hypertrophy. Left ventricular systolic function is normal. The estimated ejection fraction is 65 %. Stage 2 diastolic dysfunction. The left atrium is mildly enlarged. Ordering Physician: Bebeto Lubin Referring Physician: Hamzah Wallis Performed By: Ruby Wood RDCS, RVT
[2020-03-09 16:37] LABS: Magnesium 2.4 mg/dL (1.6-2.6)
[2020-03-09] MEDS: hydrALAZINE 50 MG Tablet 100 MG PO ×2 (17:08→21:34)
[2020-03-09] MEDS: Hydroxychloroquine 200 MG Tablet PO (17:09)
[2020-03-09 17:15] LABS: Bedside Glucose 102 mg/dL (70-110)
[2020-03-09 17:29] LABS: Bacteria 0 SEEN /hpf (None Seen); Mucous, Urine 0 SEEN /hpf (<or=2+)
[2020-03-09 17:36] LABS: Color, Urine Yellow (Yellow); Glucose, Dipstick Normal (Normal); Ketone-Dipstick Negative (Negative); Leukocyte Esterase-Dipstick Negative /ul (Negative); Nitrite-Dipstick Negative (Negative); Occult Blood-Urine 10 /ul (Negative); Protein-Dipstick 500 mg/dl (Negative); Urine Bilirubin Dipstick Negative (Negative); Urine Clarity Clear (Clear); Urine Urobilinogen Normal (Normal)
[2020-03-09 17:44] LABS: Amorphous Sediment 2+; Red Blood Cells-Urine 0-5 SEEN /hpf (0-5); Squamous Epithelial Cells - UA 0-5 SEEN /hpf (5-10); White Blood Cells 0-5 SEEN /hpf (0-5)
[2020-03-09 17:45] LABS: Hyaline Cast 0-5 SEEN /lpf (0-5)
[2020-03-09] MEDS: Acetaminophen 325 MG Tablet 650 MG PO (18:50)
[2020-03-09] MEDS: Carvedilol 25 MG Tablet PO (21:34)
[2020-03-09] MEDS: Atorvastatin Calcium 10 MG Tablet PO (21:34)
[2020-03-09] MEDS: Doxazosin 4 MG Tablet PO (21:34)
[2020-03-09] MEDS: Insulin Lispro 100 UNIT/ML INSULN.PEN SC (21:39)
[2020-03-09 21:50] LABS: Bedside Glucose 157 mg/dL (70-110)
[2020-03-10] VITALS (16 sets, daily range): BP systolic 123–188; BP diastolic 51–77; PULSE 66–82; RESP 18; TEMP 37.1–37.3; O2SAT 92–97
[2020-03-10] MEDS: Acetaminophen 325 MG Tablet 650 MG PO ×2 (01:00→07:54)
--- NOTE | 2020-03-10 01:22 | PCS.PANDOC ---
PANDEMIC DOCUMENTATION INITIATED: Date: 03/10/2020 Time: 7297
[2020-03-10 02:53] LABS: Absolute Lymphocyte Count 1.18 X10^3/uL (0.83-4.51); Absolute Neutrophil Count 7.2 X10^3/uL (2.0-7.7); Basophil# 0.03 X10^3/uL; Basophil% 0.3 % (0-1); Eosinophil# 0.47 X10^3/uL; Eosinophils% 4.8 % (0-5); Hematocrit 25.2 % (37-47); Hemoglobin 7.9 g/dL (12.0-15.0); Lymphocyte # 1.18 X10^3/ul (4.0); Mean Corp Hgb Conc 31.3 g/dL (32-36); Mean Corpuscular Volume 95.8 fL (81-99); Mean Platelet Vol. 10.3 fl (6.2-12.0); Monocyte# 0.98 X10^3/uL; Monocyte% 9.9 % (0-10); NRBC Flagged by Analyzer 0 % (0-5); Neutrophil # 7.16 X10^3/uL (2.7-7.7); Neutrophil % 72.6 % (47-70); Platelet Count 148 K/mm3 (150-450); RBC Distribution Width CV 14.8 % (11.6-14.6); Red Blood Count 2.63 M/mm3 (4.2-5.4); White Blood Count 9.9 K/mm3 (4.4-11.0)
[2020-03-10 03:09] LABS: Anion Gap 8 (5-15); BUN 47 mg/dL (7-18); Calcium,Total 8.6 mg/dL (8.5-10.1); Chloride 117 mmol/L (98-107); Creatinine, Serum 2.77 mg/dL (0.55-1.02); EST Glomerular Filtration Rate 18 mL/min (>60); Est Glom Filt Rate - Afr Amer 22 mL/min (>60); Estimated Creatinine Clearance 15.62 ml/min; Glucose 91 mg/dL (74-106); Potassium 3.3 mmol/L (3.5-5.1); Sodium Level 145 mmol/L (136-145)
[2020-03-10] MEDS: 0.9% Saline Lock 10 ML Syringe IV ×2 (03:36→07:55)
[2020-03-10] MEDS: hydrALAZINE 20 MG/ML Vial 10 MG IV (03:36)
[2020-03-10] MEDS: hydrALAZINE 50 MG Tablet 100 MG PO ×3 (06:37→21:44)
[2020-03-10 06:51] LABS: Bedside Glucose 99 mg/dL (70-110)
[2020-03-10] MEDS: Multivitamins,Ther W-Minerals Tablet 1 TABLET PO (07:54)
[2020-03-10] MEDS: Hydroxychloroquine 200 MG Tablet PO ×2 (07:54→17:58)
[2020-03-10] MEDS: Ascorbic Acid 500 MG Tablet PO (09:42)
[2020-03-10] MEDS: Calcitriol 0.25 MCG Capsule PO (09:42)
[2020-03-10] MEDS: Carvedilol 25 MG Tablet PO ×2 (09:43→21:45)
[2020-03-10] MEDS: LINAGLIPTIN 5 MG TABLET PO (09:43)
[2020-03-10] MEDS: Isosorbide Mononitrate 60 MG Tablet PO (09:43)
[2020-03-10] MEDS: Doxazosin 4 MG Tablet PO ×2 (09:43→21:44)
[2020-03-10] MEDS: Pantoprazole Sodium 20 MG Tablet PO (09:43)
[2020-03-10] MEDS: DULoxetine Hcl 30 MG Capsule PO (09:43)
[2020-03-10] MEDS: Insulin Lispro 100 UNIT/ML INSULN.PEN SC (10:59)
[2020-03-10 11:06] LABS: Bedside Glucose 163 mg/dL (70-110)
--- NOTE | 2020-03-10 12:09 | PCM.PN.HOSP ---
Patient Problems: Active and Suspected Problems (Last Reviewed 03/09/20 @ 13:[address] Bebeto Lubin, DO) Syncope (Acute) Subjective: Patient seen and examined. She was admitted with a complaint of syncope. She went to see her oncologist on account of anemia and seizure was waiting for her to pick her up but she felt lightheaded and unsteady. She passed out and a rapid response was called. CPR was initiated as no pulse was obtained. However she was subsequently revived after CPR and sent to the ER where she did have a pulse and was found to be normal sinus rhythm. She was markedly hypertensive in the ER with systolic over 200. She has no complaints this morning and feels well. Review of symptoms otherwise negative. Labs and vitals reviewed. BP still remains elevated with blood pressure up in the 180s systolic. Vitals/I&O's: Vital Signs Temp Pulse Resp BP Pulse Ox 98.8 F 73 18 188/61 H 96 03/10/20 09:40 03/10/20 09:40 03/10/20 09:40 03/10/20 09:40 03/10/20 09:40 Oxygen Flow Rate (L/min) 2 Oxygen Delivery Method Room Air Weight: 222 lb 0.088 oz Body Mass Index (BMI) 37.9 Finger Stick Blood Glucose 175 Orthostatic Vital Signs Start: 03/10/20 06:32 Freq: q24h Status: Active Protocol: Activity Type Activity Date Activity User E-Sign Co-Sign Detail Recorded Client Recorded Date Recorded By Document 03/10/20 06:32 [id number] 03/10/20 06:37 TM 03/10/20 06:32 Orthostatic Vitals Standing -Blood Pressure (90/60-120/80 mm Hg) 162/77 H -Extremity Use Left Arm -Pulse Rate (60-100 beats/min) 80 Sitting -Blood Pressure (90/60-120/80 mm Hg) 160/67 H -Extremity Use Left Arm -Pulse Rate (60-100 beats/min) 77 Lying -Blood Pressure (90/60-120/80 mm Hg) 156/60 H -Extremity Use Left Arm -Pulse Rate (60-100 beats/min) 74 Intake and Output for Last 24 Hours 03/08/20 03/09/20 03/10/20 23:59 23:59 23:59 Intake Total 815 / 935 120 / 120 Output Total 400 / 400 Balance 815 / 535 -280 / -280 General: Alert, Oriented x3, Cooperative HEENT: Atraumatic, PERRLA, EOMI, Normocephalic Oral: Dry Mucosa Neck: Supple, No JVD, Negative Carotid Bruits Lungs: Clear to auscultation, Normal air movement, No rhonchi, No wheeze, No rales Cardiovascular: Regular rate, Regular Rhythm, Normal S1, Normal S2, No murmurs Abdomen: Bowel Sounds Present, Soft, Non Tender, Non-Distended, No Hepato-splenomegaly Extremities: No clubbing, No cyanosis, No edema, Capillary Refill Less than 3 Seconds Skin: No rashes, No breakdown Musculoskeletal: No Tenderness to Palpation of Joints or Extremities Lymphatic: No Cervical, Supraclavicular, or Inguinal Adenopathy Neurological: Cranial nerves II-XII grossly intact, Neuro grossly intact, Motor Exam 5/5 strength throughout Psych/Mental Status: Normal Affect, Appropriate, Alert and oriented to time, place, person, mood and affect Microbiology Past 72 Hours 03/09/20 14:12 Mucosa - Nose SARS-CoV-2 Antigen (Rapid) - Final Laboratory Results 03/09/20 12:14: WBC 9.1, RBC 2.81 L, Hgb 8.5 L, Hct 26.9 L, MCV 95.7, MCH 30.2, MCHC 31.6 L, RDW Std Deviation 50.7 H, RDW Coeff of Pepe 14.5, Plt Count 140 L, MPV 11.5, Immature Gran % (Auto) 2.100 H, Neut % (Auto) 70.1 H, Lymph % (Auto) 10.0 L, [place] % (Auto) 6.5, Eos % (Auto) 10.6 H, Baso % (Auto) 0.7, Absolute Neuts (auto) 6.4, Absolute Lymphs (auto) 0.91, Nucleated RBC % 0 03/09/20 12:14: Sodium 142, Potassium 3.9, Chloride 116 H, Carbon Dioxide 15.0 L, Anion Gap 11, BUN 47 H, Creatinine 2.96 H, Estim Creat Clear Calc 14.62, Est GFR (MDRD) Af Amer 20 L, Est GFR (MDRD) Non-Af 17 L, BUN/Creatinine Ratio 15.9, Glucose 216 H, Calcium 8.0 L, Troponin I < 0.015 03/09/20 12:14: Magnesium 2.4 03/09/20 17:00: POC Glucose 102 03/09/20 17:15: Urine Color Yellow, Urine Clarity Clear, Urine pH 5.0, Ur Specific [place] 1.020, Urine Protein 500 H, Urine Glucose (UA) Normal, Urine Ketones Negative, Urine Occult Blood 10 H, Urine Nitrite Negative, Urine Bilirubin Negative, Urine Urobilinogen Normal, Ur Leukocyte Esterase Negative, Urine RBC 0-5 SEEN, Urine WBC 0-5 SEEN, Ur Squamous Epith Cells 0-5 SEEN, Amorphous Sediment 2+, Urine Bacteria 0 SEEN, Hyaline Casts 0-5 SEEN, Urine Mucus 0 SEEN 03/09/20 21:29: Troponin I 0.061 H 03/09/20 21:35: POC Glucose 157 H 03/10/20 00:30: Troponin I 0.054 H 03/10/20 02:46: WBC 9.9, RBC 2.63 L, Hgb 7.9 L, Hct 25.2 L, MCV 95.8, MCH 30.0, MCHC 31.3 L, RDW Std Deviation 51.0 H, RDW Coeff of [place] 14.8 H, Plt Count 148 L, MPV 10.3, Immature Gran % (Auto) 0.400, Neut % (Auto) 72.6 H, Lymph % (Auto) 12.0 L, [place] % (Auto) 9.9, Eos % (Auto) 4.8, Baso % (Auto) 0.3, Absolute Neuts (auto) 7.2, Absolute Lymphs (auto) 1.18, Nucleated RBC % 0 03/10/20 02:46: Sodium 145, Potassium 3.3 L, Chloride 117 H, Carbon Dioxide 20.0 L, Anion Gap 8, BUN 47 H, Creatinine 2.77 H, Estim Creat Clear Calc 15.62, Est GFR (MDRD) Af Amer 22 L, Est GFR (MDRD) Non-Af 18 L, BUN/Creatinine Ratio 17.0, Glucose 91, Calcium 8.6 03/10/20 02:46: Troponin I 0.048 H 03/10/20 06:41: POC Glucose 99 03/10/20 10:57: POC Glucose 163 H Diagnostic Data Cervical Spine CT 03/09/20 12:09 IMPRESSION: Multilevel degenerative changes, as described above. Electronically Signed: Warren Coombs, at 13:20 EST , Service support , Brain CT 03/09/20 12:45 IMPRESSION: Chronic involutional changes of the brain. Electronically Signed: Warren Malvin, at 13:08 EST , Service support , Chest X-Ray 03/09/20 12:55 IMPRESSION: Cardiomegaly. The lungs are clear. Electronically Signed: Warren Reyesmel, at 13:45 EST , Service support , Current Medications Acetaminophen (Acetaminophen 325 Mg Tablet) 650 mg PO Q6H PRN PRN PRN Reason: Pain Score 1-10/Temp > 100.7 F Last Admin: 03/10/20 07:54 Dose: 650 mg Documented by: Ascorbic Acid (Ascorbic Acid 500 Mg Tablet) 500 mg PO DAILY [facility] Last Admin: 03/10/20 09:42 Dose: 500 mg Documented by: Atorvastatin Calcium (Atorvastatin Calcium 10 Mg Tablet) 10 mg PO QHS [facility] Last Admin: 03/09/20 21:34 Dose: 10 mg Documented by: Calcitriol (Calcitriol 0.25 Mcg Capsule) 0.25 mcg PO DAILY [facility] Last Admin: 03/10/20 09:42 Dose: 0.25 mcg Documented by: Carvedilol (Carvedilol 25 Mg Tablet) 25 mg PO BID [facility] Last Admin: 03/10/20 09:43 Dose: 25 mg Documented by: Dextrose (Dextrose 50%-Water 25 Gm/50 Ml Disp.Syrin) 0 gm IV X1 PRN; Protocol PRN Reason: Hypoglycemia Doxazosin Mesylate (Doxazosin 4 Mg Tablet) 4 mg PO BID [facility] Last Admin: 03/10/20 09:43 Dose: 4 mg Documented by: Duloxetine HCl (Duloxetine Hcl 30 Mg Capsule) 30 mg PO DAILY [facility] Last Admin: 03/10/20 09:43 Dose: 30 mg Documented by: Glucagon (Glucagon 1 Mg/Ml Syringe) 1 mg IM .X1 PRN PRN Reason: Hypoglycemia Hydralazine HCl (Hydralazine 50 Mg Tablet) 100 mg PO TID [facility] Last Admin: 03/10/20 06:37 Dose: 100 mg Documented by: Hydralazine HCl (Hydralazine 20 Mg/Ml Vial) 10 mg IV Q4H PRN PRN PRN Reason: BLOOD PRESSURE Last Admin: 03/10/20 03:36 Dose: 10 mg Documented by: Hydroxychloroquine Sulfate ([facility]ine 200 Mg Tablet) [facility] Last Admin: 03/10/20 07:54 Dose: 200 mg Documented by: Insulin Glargine (Insulin Glargine 100 Units/Ml Pen) 38 units SC DAILY [facility] Last Admin: 03/10/20 10:59 Dose: 38 units Documented by: Insulin Human Lispro (Insulin Lispro 100 Unit/Ml Insuln.Pen) 0 unit [facility]; Protocol Last Admin: 03/10/20 10:59 Dose: 1 units Documented by: Iron (Iron Carbonyl 45 Mg Capsule) 45 mg PO DAILY [facility] Last Admin: 03/10/20 09:43 Dose: 45 mg Documented by: Isosorbide Mononitrate (Isosorbide Mononitrate 60 Mg Tablet) 60 mg PO DAILY [facility] Last Admin: 03/10/20 09:43 Dose: 60 mg Documented by: Linagliptin (Linagliptin 5 Mg Tablet) 5 mg PO DAILY [facility] Last Admin: 03/10/20 09:43 Dose: 5 mg Documented by: Multivitamins/Minerals (Multivitamins,Ther W-Minerals Tablet) [facility] Last Admin: 03/10/20 07:54 Dose: 1 tablet Documented by: Non-Formulary Medication (Valsartan) 160 mg PO DAILY [facility] Ondansetron HCl (Ondansetron 4 Mg/2 Ml Vial) 4 mg IV Q8H PRN PRN PRN Reason: NAUSEA/VOMITING Pantoprazole Sodium (Pantoprazole Sodium 20 Mg Tablet) 20 mg PO DAILY [facility] Last Admin: 03/10/20 09:43 Dose: 20 mg Documented by: Sodium Chloride (0.9% Saline Lock 10 Ml Syringe) 10 - 40 ml IV UD PRN PRN Reason: SALINE FLUSH Last Admin: 03/10/20 07:55 Dose: 10 ml Documented by: STROKE Vital Signs/Narrative: Vital Signs Temp Pulse Resp BP Pulse Ox 03/10/20 09:40 98.8 F 73 18 188/61 H 96 Medical Necessity - Tobacco Use Smoking Status: Never smoker Tobacco Use: Non-smoker Assessment/Plan All Active Problems (Last Reviewed 03/09/20 @ 13:[address] Bebeto Lubin, DO) GI bleed (Resolved) Syncope (Acute) Acute on chronic diastolic (congestive) heart failure (Resolved) Chest pain (Resolved) HTN (hypertension), malignant (Resolved) #Syncope Orthostatics were positive. Syncope was likely vasovagal. Furosemide on hold. Initial troponin trended up slightly to 0.061 but this was likely due to the CPR she had. PT OT on board. Fall precautions. Hydrate very gently with half-normal saline. 2D echo showed moderate concentric left ventricular hypertrophy with normal EF of 65% and stage II diastolic dysfunction with no regional wall motion abnormalities noted. #Hypertensive emergency Blood pressure was up in the 200s on admission and has remained poorly controlled. Blood pressure now in the 180 systolic. On carvedilol 25 mg twice daily, Cardura 4 mg twice daily and valsartan 160 mg daily. Also on hydralazine IV hydralazine prn. will adjust patient's meds based on her BP trend #Chrobic anemia; follows with hematology. Received an epogen shot yesterday. Trend hemoglobin. Globin today 7.9. # Type 2 diabetes mellitus: Linagliptin. Also on Lantus 38 units daily. Insulin sliding scale. Accu-Cheks AC at bedtime. Hypokalemia: Potassium is 3.3 today. Will replace #CKD stage 4: eGFR is 18,. and Cr is 2.77. This is chronic. Will monitor DVT prophylaxis: Lovenox CODE STATUS: Full code OBSV E&M: 44245 Subsequent observation care L2
--- NOTE | 2020-03-10 13:59 | CASEMGMT ---
This RN CM to room with PADILLA form at this time, explanation done-pt voices understanding, and signs PADILLA form at this time. Original to chart and copy to chart at this time. Pt has copy of MCR IP vs OBS booklet at bedside already. Pt declines need for HHC or OP therapy at this time. Pt/ aware to notify if she changes her mind or she can call PCP once home if she feels she needs HHC or OP, voices understanding. SStaten CHANO CM
[2020-03-10 16:40] LABS: Bedside Glucose 224 mg/dL (70-110)
[2020-03-10 17:45] LABS: Bedside Glucose 87 mg/dL (70-110)
[2020-03-10] MEDS: Atorvastatin Calcium 10 MG Tablet PO (21:46)
[2020-03-10 21:55] LABS: Bedside Glucose 139 mg/dL (70-110)
[2020-03-11] VITALS (13 sets, daily range): BP systolic 128–196; BP diastolic 48–77; PULSE 66–78; RESP 18; TEMP 36.8–37.2; O2SAT 95–98
[2020-03-11] MEDS: Acetaminophen 325 MG Tablet 650 MG PO ×2 (00:15→09:19)
[2020-03-11] MEDS: hydrALAZINE 20 MG/ML Vial 10 MG IV (03:47)
[2020-03-11] MEDS: 0.9% Saline Lock 10 ML Syringe IV (03:48)
[2020-03-11 06:36] LABS: Absolute Lymphocyte Count 1.14 X10^3/uL (0.83-4.51); Absolute Neutrophil Count 7.2 X10^3/uL (2.0-7.7); Basophil# 0.04 X10^3/uL; Basophil% 0.4 % (0-1); Eosinophil# 0.89 X10^3/uL; Eosinophils% 8.9 % (0-5); Hematocrit 25.2 % (37-47); Lymphocyte # 1.14 X10^3/ul (4.0); Lymphocyte % 11.4 % (19-41); Mean Corp Hgb Conc 31.7 g/dL (32-36); Mean Corpuscular Hgb 30.4 pg (27.0-32.0); Mean Corpuscular Volume 95.8 fL (81-99); Mean Platelet Vol. 10.6 fl (6.2-12.0); Monocyte# 0.72 X10^3/uL; Monocyte% 7.2 % (0-10); NRBC Flagged by Analyzer 0 % (0-5); Neutrophil # 7.18 X10^3/uL (2.7-7.7); Neutrophil % 71.6 % (47-70); Platelet Count 150 K/mm3 (150-450); RBC Distribution Width CV 14.8 % (11.6-14.6); Red Blood Count 2.63 M/mm3 (4.2-5.4)
[2020-03-11] MEDS: hydrALAZINE 50 MG Tablet 100 MG PO (06:40)
[2020-03-11 06:58] LABS: Anion Gap 6 (5-15); BUN 43 mg/dL (7-18); BUN/Creat Ratio 15.5 RATIO (10-20); Calcium,Total 8.6 mg/dL (8.5-10.1); Chloride 118 mmol/L (98-107); Creatinine, Serum 2.78 mg/dL (0.55-1.02); EST Glomerular Filtration Rate 18 mL/min (>60); Est Glom Filt Rate - Afr Amer 22 mL/min (>60); Estimated Creatinine Clearance 15.56 ml/min; Glucose 73 mg/dL (74-106); Potassium 3.5 mmol/L (3.5-5.1); Sodium Level 145 mmol/L (136-145)
[2020-03-11 08:33] LABS: Bedside Glucose 77 mg/dL (70-110)
[2020-03-11] MEDS: Hydroxychloroquine 200 MG Tablet PO (09:12)
[2020-03-11] MEDS: Pantoprazole Sodium 20 MG Tablet PO (09:12)
[2020-03-11] MEDS: DULoxetine Hcl 30 MG Capsule PO (09:12)
[2020-03-11] MEDS: Ascorbic Acid 500 MG Tablet PO (09:12)
[2020-03-11] MEDS: Calcitriol 0.25 MCG Capsule PO (09:12)
[2020-03-11] MEDS: Multivitamins,Ther W-Minerals Tablet 1 TABLET PO (09:12)
[2020-03-11] MEDS: Doxazosin 4 MG Tablet PO (09:12)
[2020-03-11] MEDS: LINAGLIPTIN 5 MG TABLET PO (09:13)
[2020-03-11] MEDS: Isosorbide Mononitrate 60 MG Tablet PO (09:13)
[2020-03-11] MEDS: Carvedilol 25 MG Tablet PO (09:13)
[2020-03-11] MEDS: Furosemide 20 MG Tablet PO (09:18)
[2020-03-11 11:16] LABS: Bedside Glucose 118 mg/dL (70-110)
--- NOTE | 2020-03-11 11:32 | DCINST_ITS ---
- Discharge Diagnoses Current Active Problems: Current Active and Chronic Problems (Last Reviewed 03/09/20 @ 13:[address] Bebeto Lubin, DO) Dyspnea on minimal exertion (Chronic) Type 2 diabetes mellitus (Chronic) Anemia (Chronic) Gastritis determined by endoscopy (Chronic) Syncope (Acute) Chronic diastolic (congestive) heart failure (Chronic) Secondary pulmonary arterial hypertension (Chronic) Essential (primary) hypertension (Chronic) HLD (hyperlipidemia) (Chronic) Chronic renal failure, stage 4 (severe) (Chronic) KHANG (obstructive sleep apnea) (Chronic) Hypersomnolence (Chronic) Bilateral edema of lower extremity (Chronic) You will use the following diet at home:: Cardiac Your food should be the consistency of: Regular Your liquids should be the consistency of: Regular/Thin Discharge Activity: Return to Normal Activity Weight Bearing Status: Weight bearing as tolerated Call your doctor if you observe: Shortness of breath, Dizziness, Fainting spells, Swelling in the ankles, Chest pain Instructions: Possible Causes of Dizziness or Fainting, ED Fainting, Vagal Reaction, ED Fainting, Uncertain Cause Additional Instructions: check BP at home morning and evening, and present BP log to your PCP for medication adjustment as needed. Allergies/Adverse Reactions: Allergies calcium Allergy (Unknown, Verified 03/09/20 12:28) constipation furosemide Allergy (Unknown, Verified 03/09/20 12:28) Constpation amiloride Allergy (Verified 03/09/20 12:28) NEEDS FOLLOW-UP azithromycin [From Zithromax Z-Rickey] Allergy (Verified 03/09/20 12:28) NEEDS FOLLOW-UP bumetanide Allergy (Verified 03/09/20 12:28) Unknown chlorthalidone Allergy (Verified 03/09/20 12:28) Unknown clonidine HCl [From Catapres] Allergy (Verified 03/09/20 12:28) Rash diltiazem Allergy (Verified 03/09/20 12:28) Unknown gemfibrozil Allergy (Verified 03/09/20 12:28) Unknown hydralazine [Hydralazine] Allergy (Verified 03/09/20 12:28) Swelling lisinopril Allergy (Verified 03/09/20 12:28) NEEDS FOLLOW-UP losartan [Losartan] Allergy (Verified 03/09/20 12:28) Unknown minoxidil Allergy (Verified 03/09/20 12:28) Unknown nifedipine Allergy (Verified 03/09/20:) Unknown simvastatin [From Zocor] Allergy (Verified 03/09/20 12:) Unknown triamterene [From Dyazide] Allergy (Verified 03/09/20:) Unknown valdecoxib [From Bextra] Allergy (Verified 03/09/20:) Unknown verapamil [Verapamil] Allergy (Verified 03/09/20 12:) Unknown atorvastatin Adverse Reaction (Unknown, Verified 03/09/20) Swelling and cramping of the legs clonidine [From Catapres] Adverse Reaction (Unknown, Verified 03/09/20:) Unknown esomeprazole [From Nexium] Adverse Reaction (Unknown, Verified 03/09/20) Swelling metformin [From Glucophage] Adverse Reaction (Unknown, Verified 03/09/20) Other kidney fxn worsened rosuvastatin [From Crestor] Adverse Reaction (Unknown, Verified 03/09/20 12:) leg cramps/ swelling atorvastatin calcium [From Lipitor] Adverse Reaction (Verified 03/09/20:) Leg cramps/aching celecoxib [From Celebrex] Adverse Reaction (Verified 03/09/20:) Leg aching hydrochlorothiazide Adverse Reaction (Verified 03/09/20:) Legs aching indapamide Adverse Reaction (Verified 03/09/20:) Other insulin detemir [From Levemir] Adverse Reaction (Verified 03/09/20:) Unknown lansoprazole [From Prevacid] Adverse Reaction (Verified 03/09/20:) Legs aching metformin HCl [From Glucophage] Adverse Reaction (Verified 03/09/20 12:) Diarrhea pravastatin Adverse Reaction (Verified 03/09/20:) Legs aching rosuvastatin calcium [From Crestor] Adverse Reaction (Verified 03/09/20 12:) Legs aching Medications to take at Discharge Ubidecarenone [Coq-10] 100 mg PO DAILY 09/11/19 Multivit-Min/FA/Lycopen/Lutein [Centrum Silver Tablet] 1 tab PO DAILY 09/15/19 atorvastatin 10 mg tablet 10 mg PO QHS #90 tab 09/29/19 calcitriol 0.25 mcg capsule 0.25 mcg PO DAILY #90 cap 09/29/19 duloxetine 30 mg capsule,delayed release 30 mg PO DAILY #90 cap 09/29/19 sitagliptin 100 mg tablet 100 mg PO DAILY #90 tab 09/29/19 Doxazosin Mesylate [Cardura] 4 mg PO BID 10/06/19 Hydroxychloroquine [Plaquenil] 200 mg PO BIDCM 10/06/19 Iron,Carbonyl [Carbonyl Iron] 65 mg PO DAILY 10/06/19 hydralazine 100 mg tablet 100 mg PO TID #270 tab 10/28/19 furosemide 40 mg tablet 20 mg PO DAILY tab 11/03/19 omeprazole 20 mg capsule,delayed release 20 mg PO DAILY cap 11/13/19 tramadol 50 mg tablet 50 mg PO TID PRN tab 11/13/19 carvedilol 25 mg tablet 25 mg PO BID #180 tab 01/13/20 Ascorbate Calcium/Bioflavonoid [Jeannette-C 500 mg Tablet] 1 tab PO DAILY 03/09/20 Insulin Glargine [Lantus SoloStar Pen] 38 unit SC DAILY 03/09/20 Isosorbide Mononitrate [Isosorbide Mononitrate ER] 60 mg PO DAILY 03/09/20 Valsartan [Diovan] 160 mg PO DAILY 03/09/20 Primary Care Physician: Hamzah Wallis MD [Primary Care Provider] - Please follow up with your Primary Care Physician in: 1-2 weeks Test Results: Test results from this visit will be discussed in further detail at your follow- up appointment, if applicable. Proposed Discharge Date: 03/11/20
--- NOTE | 2020-03-11 11:35 | DS.PCM_ITS ---
Discharge Date and Diagnosis - Problem List Patient Problems: Active and Suspected Problems (Last Reviewed 03/09/20 @ 13:[address] Bebeto Lubin DO) Syncope (Acute) Date of Admission: 03/09/20 Date of Discharge: 03/11/20 - Primary Discharge Diagnosis Acute Problems: Active Problems (Last Reviewed 03/09/20 @ 13:[address] Bebeto Lubin DO) Syncope (Acute) - Secondary Discharge Diagnosis Chronic Problems: Chronic Problems (Last Reviewed 03/09/20 @ 13:[address] Bebeto Lubin DO) Dyspnea on minimal exertion (Chronic) Type 2 diabetes mellitus (Chronic) Anemia (Chronic) Gastritis determined by endoscopy (Chronic) Chronic diastolic (congestive) heart failure (Chronic) Secondary pulmonary arterial hypertension (Chronic) Essential (primary) hypertension (Chronic) HLD (hyperlipidemia) (Chronic) Chronic renal failure, stage 4 (severe) (Chronic) KHANG (obstructive sleep apnea) (Chronic) Hypersomnolence (Chronic) Bilateral edema of lower extremity (Chronic) Hospital Course and Treatment Imaging Results: Diagnostic Data Cervical Spine CT 03/09/20 12:09 IMPRESSION: Multilevel degenerative changes, as described above. Electronically Signed: Warren Coombs, at 13:20 EST , Service support , Brain CT 03/09/20 12:45 IMPRESSION: Chronic involutional changes of the brain. Electronically Signed: Warren Coombs, at 13:08 EST , Service support , Chest X-Ray 03/09/20 12:55 IMPRESSION: Cardiomegaly. The lungs are clear. Electronically Signed: Warren Coombs, at 13:45 EST , Service support , Operations: None Procedures: None Summary of Care Provided: The patient is a 74 year old F with a past medical history as outlined was admitted through the ED on 03/09/2020 after she passed out at the outpatient center. Patient has a history of chronic anemia and has been following up with hematology. 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 After her appointment, whilst waiting for her to bring the car around, she started feeling unsteady on her feet. She felt dizzy and lightheaded and was resting itself against the wall when she passed out. Rapid response was called. Apparently, no pulse was obtained and CPR was started. However on arrival in the ED, she was found to be normal sinus rhythm and did have a pulse at that time so CPR was discontinued. Patient came around and was very alert and oriented. She was markedly hypertensive in the ED with systolic blood pressure of over 200. Review of systems is otherwise negative. She was admitted and managed for syncope likely vasovagal. She was hydrated with IV f luids. Orthostatics checked was positive. Diuretics were held. Initial troponin trended up slightly to 0.061 but this was thought to be due to the CPR that she had had. 2D echo done showed concentric left ventricular hypertrophy with EF of 65% and stage II diastolic dysfunction with no regional wall motion abnormalities noted. Patient's blood pressure still remained elevated above 1 was checked with a manual machine, blood pressure was down to 128/60. Patient did tell me that her blood pressure has been elevated and was usually in [id number] and 190s systolic and she had been following up with PCP for this. Patient remained stable and did not have any episodes of syncope throughout the admission. He was counseled to keep a blood pressure log at home and check her blood pressure in the mornings and evenings. She is to follow-up with her PCP with his blood pressure log for her medications to be adjusted as needed. She was discharged home on her home medications of furosemide, carvedilol, Cardura and valsartan as well as hydralazine. She is to follow-up with her primary care doctor in 1 to 2 weeks. Patient seen and examined prior to discharge. She had no complaints and felt well. Review of symptoms otherwise negative. Labs and vitals reviewed. Home medication reviewed and reconciled. O/e: Vital Signs Temp Pulse Resp BP Pulse Ox 98.2 F 66 18 154/77 H 98 03/11/20 14:17 03/11/20 14:17 03/11/20 14:17 03/11/20 14:17 03/11/20 14:17 [] General: Alert, Oriented x3, Cooperative HEENT: Atraumatic, PERRLA, EOMI, Normocephalic Oral: Dry Mucosa Neck: Supple, No JVD, Negative Carotid Bruits Lungs: Clear to auscultation, Normal air movement, No rhonchi, No wheeze, No rales Cardiovascular: Regular rate, Regular Rhythm, Normal S1, Normal S2, No murmurs Abdomen: Bowel Sounds Present, Soft, Non Tender, Non-Distended, No Hepato- splenomegaly Extremities: No clubbing, No cyanosis, No edema, Capillary Refill Less than 3 Seconds Skin: No rashes, No breakdown Musculoskeletal: No Tenderness to Palpation of Joints or Extremities Lymphatic: No Cervical, Supraclavicular, or Inguinal Adenopathy Neurological: Cranial nerves II-XII grossly intact, Neuro grossly intact, Motor Exam 5/5 strength throughout Psych/Mental Status: Normal Affect, Appropriate, Alert and oriented to time, place, person, mood and affect None is for discharge home today. Patient counseled to keep well-hydrated at home. Patient Problems: Active and Suspected Problems (Last Reviewed 03/09/20 @ 13:[address] Bebeto Lubin, DO) Syncope (Acute) - Physical Exam Vitals/I&O's: Vital Signs Temp Pulse Resp BP Pulse Ox 98.7 F 66 18 128/60 H 97 03/11/20 09:29 03/11/20 10:54 03/11/20 09:29 03/11/20 10:28 03/11/20 09:38 Oxygen Flow Rate (L/min) 2 Oxygen Delivery Method Room Air Weight: 222 lb 10.67 oz Body Mass Index (BMI) 37.9 Finger Stick Blood Glucose 175 Orthostatic Vital Signs Start: 03/10/20 06:32 Freq: q24h Status: Active Protocol: Activity Type Activity Date Activity User E-Sign Co-Sign Detail Recorded Client Recorded Date Recorded By Document 03/11/20 06:32 AMERICO [id number] 03/11/20 06:49 AMERICO 03/11/20 06:32 Orthostatic Vitals Standing -Blood Pressure (90/60-120/80 mm Hg) 179/59 H -Extremity Use Right Arm -Pulse Rate (60-100 beats/min) 74 Sitting -Blood Pressure (90/60-120/80 mm Hg) 163/48 H -Extremity Use Right Arm -Pulse Rate (60-100 beats/min) 78 Lying -Blood Pressure (90/60-120/80 mm Hg) 152/52 H -Extremity Use Right Arm -Pulse Rate (60-100 beats/min) 73 Intake and Output for Last 24 Hours 03/09/20 03/10/20 03/11/20 23:59 23:59 23:59 Intake Total 815 / 935 1460 / 1460 240 / 240 Output Total 400 / 400 Balance 815 / 535 1060 / 1060 240 / 240 Microbiology Past 72 Hours 03/09/20 14:12 Mucosa - Nose SARS-CoV-2 Antigen (Rapid) - Final Laboratory Results 03/09/20 11:59: POC Glucose 224 H 03/10/20 17:39: POC Glucose 87 03/10/20 21:42: POC Glucose 139 H 03/11/20 05:50: WBC 10.0, RBC 2.63 L, Hgb 8.0 L, Hct 25.2 L, MCV 95.8, MCH 30.4, MCHC 31.7 L, RDW Std Deviation 51.0 H, RDW Coeff of Pepe 14.8 H, Plt Count 150, MPV 10.6, Immature Gran % (Auto) 0.500, Neut % (Auto) 71.6 H, Lymph % (Auto) 11.4 L, [place] % (Auto) 7.2, Eos % (Auto) 8.9 H, Baso % (Auto) 0.4, Absolute Neuts (auto) 7.2, Absolute Lymphs (auto) 1.14, Nucleated RBC % 0 03/11/20 05:50: Sodium 145, Potassium 3.5, Chloride 118 H, Carbon Dioxide 21.0, Anion Gap 6, BUN 43 H, Creatinine 2.78 H, Estim Creat Clear Calc 15.56, Est GFR (MDRD) Af Amer 22 L, Est GFR (MDRD) Non-Af 18 L, BUN/Creatinine Ratio 15.5, Glucose 73 L, Calcium 8.6 03/11/20 06:37: POC Glucose 77 03/11/20 10:51: POC Glucose 118 H Current Medications Acetaminophen (Acetaminophen 325 Mg Tablet) 650 mg PO Q6H PRN PRN PRN Reason: Pain Score 1-10/Temp > 100.7 F Last Admin: 03/11/20 09:19 Dose: 650 mg Documented by: Ascorbic Acid (Ascorbic Acid 500 Mg Tablet) 500 mg PO DAILY [facility] Last Admin: 03/11/20 09:12 Dose: 500 mg Documented by: Atorvastatin Calcium (Atorvastatin Calcium 10 Mg Tablet) 10 mg PO QHS [facility] Last Admin: 03/10/20 21:46 Dose: 10 mg Documented by: Calcitriol (Calcitriol 0.25 Mcg Capsule) 0.25 mcg PO DAILY [facility] Last Admin: 03/11/20 09:12 Dose: 0.25 mcg Documented by: Carvedilol (Carvedilol 25 Mg Tablet) 25 mg PO BID [facility] Last Admin: 03/11/20 09:13 Dose: 25 mg Documented by: Dextrose (Dextrose 50%-Water 25 Gm/50 Ml Disp.Syrin) 0 gm IV X1 PRN; Protocol PRN Reason: Hypoglycemia Doxazosin Mesylate (Doxazosin 4 Mg Tablet) 4 mg PO BID [facility] Last Admin: 03/11/20 09:12 Dose: 4 mg Documented by: Duloxetine HCl (Duloxetine Hcl 30 Mg Capsule) 30 mg PO DAILY [facility] Last Admin: 03/11/20 09:12 Dose: 30 mg Documented by: Furosemide (Furosemide 20 Mg Tablet) 20 mg PO DAILY [facility] Last Admin: 03/11/20 09:18 Dose: 20 mg Documented by: Glucagon (Glucagon 1 Mg/Ml Syringe) 1 mg IM .X1 PRN PRN Reason: Hypoglycemia Hydralazine HCl (Hydralazine 50 Mg Tablet) 100 mg PO TID [facility] Last Admin: 03/11/20 06:40 Dose: 100 mg Documented by: Hydralazine HCl (Hydralazine 20 Mg/Ml Vial) 10 mg IV Q4H PRN PRN PRN Reason: BLOOD PRESSURE Last Admin: 03/11/20 03:47 Dose: 10 mg Documented by: [facility]xychloroquine Sulfate ([facility] 200 [facility]) [facility] Last Admin: 03/11/20 09:12 Dose: 200 mg Documented by: Insulin Glargine (Insulin Glargine 100 Units/Ml Pen) 38 units SC DAILY [facility] Last Admin: 03/11/20 09:14 Dose: 38 units Documented by: Insulin Human Lispro (Insulin Lispro 100 Unit/Ml Insuln.Pen) 0 unit SC ACHS [facility]; Protocol Last Admin: 03/11/20 11:17 Dose: Not Given Documented by: Iron (Iron Carbonyl 45 Mg Capsule) 45 mg PO DAILY [facility] Last Admin: 03/11/20 09:13 Dose: 45 mg Documented by: Isosorbide Mononitrate (Isosorbide Mononitrate 60 Mg Tablet) 60 mg PO DAILY [facility] Last Admin: 03/11/20 09:13 Dose: 60 mg Documented by: Linagliptin (Linagliptin 5 Mg Tablet) 5 mg PO DAILY [facility] Last Admin: 03/11/20 09:13 Dose: 5 mg Documented by: Multivitamins/Minerals (Multivitamins,Ther W-Minerals Tablet) [facility] Last Admin: 03/11/20 09:12 Dose: 1 tablet Documented by: Ondansetron HCl (Ondansetron 4 Mg/2 Ml Vial) 4 mg IV Q8H PRN PRN PRN Reason: NAUSEA/VOMITING Pantoprazole Sodium (Pantoprazole Sodium 20 Mg Tablet) 20 mg PO DAILY [facility] Last Admin: 03/11/20 09:12 Dose: 20 mg Documented by: Sodium Chloride (0.9% Saline Lock 10 Ml Syringe) 10 - 40 ml IV UD PRN PRN Reason: SALINE FLUSH Last Admin: 03/11/20 03:48 Dose: 20 ml Documented by: Valsartan (Valsartan 160 Mg Tablet) 160 mg PO DAILY [facility] Last Admin: 03/11/20 09:13 Dose: 160 mg Documented by: Discharge Activity: Return to Normal Activity Weight Bearing Status: Weight bearing as tolerated Call your doctor if you observe: Shortness of breath, Dizziness, Fainting spells, Swelling in the ankles, Chest pain Home Medications: Medications to take at Discharge Ubidecarenone [Coq-10] 100 mg PO DAILY 09/11/19 Multivit-Min/FA/Lycopen/Lutein [Centrum Silver Tablet] 1 tab PO DAILY 09/15/19 atorvastatin 10 mg tablet 10 mg PO QHS #90 tab 09/29/19 calcitriol 0.25 mcg capsule 0.25 mcg PO DAILY #90 cap 09/29/19 duloxetine 30 mg capsule,delayed release 30 mg PO DAILY #90 cap 09/29/19 sitagliptin 100 mg tablet 100 mg PO DAILY #90 tab 09/29/19 Doxazosin Mesylate [Cardura] 4 mg PO BID 10/06/19 Hydroxychloroquine [Plaquenil] 200 mg PO BIDCM 10/06/19 Iron,Carbonyl [Carbonyl Iron] 65 mg PO DAILY 10/06/19 hydralazine 100 mg tablet 100 mg PO TID #270 tab 10/28/19 furosemide 40 mg tablet 20 mg PO DAILY tab 11/03/19 omeprazole 20 mg capsule,delayed release 20 mg PO DAILY cap 11/13/19 tramadol 50 mg tablet 50 mg PO TID PRN tab 11/13/19 carvedilol 25 mg tablet 25 mg PO BID #180 tab 01/13/20 Ascorbate Calcium/Bioflavonoid [Jeannette-C 500 mg Tablet] 1 tab PO DAILY 03/09/20 Insulin Glargine [Lantus SoloStar Pen] 38 unit SC DAILY 03/09/20 Isosorbide Mononitrate [Isosorbide Mononitrate ER] 60 mg PO DAILY 03/09/20 Valsartan [Diovan] 160 mg PO DAILY 03/09/20 Primary Care Physician: Hamzah Wallis MD [Primary Care Provider] - Please follow up with your Primary Care Physician in: 1-2 weeks Patient Instructions: Possible Causes of Dizziness or Fainting, ED Fainting, Vagal Reaction, ED Fainting, Uncertain Cause Disposition: Home Minutes spent on discharge:: 45 Patient Condition:: Stable Medical Necessity - Tobacco Use Smoking Status: Never smoker Tobacco Use: Non-smoker Meaningful Use Info Meaningful Use Diagnoses (Choose all that apply): None applicable Inpatient E&M: [id number] [facility]
--- NOTE | 2020-03-11 12:35 | CASEMGMT ---
Therapy is just recommending WW for pt at this time and after speaking with , pt states they do not have a WW at home. Pt states has gotten equipment from [employer] at this time and would prefer to use them at this time. Order faxed to [employer] at this time and call to [facility] [place] to notify of referral, voices understanding. Pt states no further questions/concerns/needs at this time. SStleonard MADDEN CM
== END 2020-03-11 11:41 | disposition home or self-care (01) ==
LOC: ED 12:34 → PCU 15:26
PROVIDERS: Emergency Provider Emergency Medicine; PCP Internal Medicine; Visit Provider Student in an Organized Health Care Education/Training Program
DX: R55 Syncope and collapse (principal); E11.22 Type 2 diabetes mellitus with diabetic chronic kidney disease; I13.0 Hypertensive heart and chronic kidney disease with heart failure and stage 1 through stage 4 chronic kidney disease, or unspecified chronic kidney disease; I50.32 Chronic diastolic (congestive) heart failure; I27.21 Secondary pulmonary arterial hypertension; E78.5 Hyperlipidemia, unspecified; N18.4 Chronic kidney disease, stage 4 (severe); G47.33 Obstructive sleep apnea (adult) (pediatric); E11.40 Type 2 diabetes mellitus with diabetic neuropathy, unspecified; R60.0 Localized edema; E66.01 Morbid (severe) obesity due to excess calories; K21.9 Gastro-esophageal reflux disease without esophagitis; Z68.39 Body mass index [BMI] 39.0-39.9, adult; M19.90 Unspecified osteoarthritis, unspecified site; L40.9 Psoriasis, unspecified; I70.1 Atherosclerosis of renal artery; M06.9 Rheumatoid arthritis, unspecified; Z79.899 Other long term (current) drug therapy; Z79.4 Long term (current) use of insulin; I16.1 Hypertensive emergency; E87.6 Hypokalemia; N17.9 Acute kidney failure, unspecified; D63.1 Anemia in chronic kidney disease
CPT/HCPCS: 36415; 70450; 71045; 72125; 80048; 80053; 81001; 82728; 82962; 83540; 83550; 83735; 84484; 85025; 87426; 93005; 93306; 96361; 96374; 96376; 97162; 97166; 97530; 99218; 99285; J7030; A4216; G0378; Q5106

== ENCOUNTER 2020-04-08 14:55 | Inpatient (IN) | payer MEDICARE, SELFPAY ==
[2020-04-06 13:49] VITALS: BMI 40.3
[2020-04-08] VITALS (15 sets, daily range): BP systolic 178–227; BP diastolic 51–83; PULSE 72–80; RESP 16–24; TEMP 36.6–37.2; O2SAT 95–99; BMI 41.8; BMI 38.9
--- NOTE | 2020-04-08 15:24 | EKG12_ITS ---
Test Reason : Blood Pressure : / mmHG Vent. Rate : 073 BPM Atrial Rate : 073 BPM P-R Int : 138 ms QRS Dur : 098 ms QT Int : 424 ms P-R-T Axes : 066 034 091 degrees QTc Int : 467 ms Normal sinus rhythm Cannot rule out Anterior infarct , age undetermined Abnormal ECG Confirmed by SUMAN BALTAZAR, BARRY ([id number]), editorial specialist JAN URBAN ([id number]) on 04/11/2020 2:18:59 PM Referred By: ALBERT Confirmed By:BARRY WILL MD
--- NOTE | 2020-04-08 15:27 | ED.VIS.DYS ---
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 Negative for: Fever, Sweats Chest Pain: None Narrative: 74-year-old female states she went to ENT because she is having trouble breathing through her nose and has been feeling very congested, she was so short of breath while there that she was sent directly here to the emergency department. She states she has been having shortness of breath probably for a couple months but it had not been this bad until the last several days especially. Her legs have been a lot more swollen than usual. She has had to sleep in a recliner for the last several weeks due to orthopnea. She denies having any chest pain, fevers, chills, contact with coronavirus that she knows of, or having had COVID-19 in the past. She has a history of congestive heart failure. She states she is on no diuretic and declares multiple adverse side effects to diuretics. - Past Medical History (1) Anemia Status: Chronic (2) Chronic diastolic (congestive) heart failure Status: Chronic (3) Chronic renal failure, stage 4 (severe) Status: Chronic (4) Essential (primary) hypertension Status: Chronic (5) HLD (hyperlipidemia) Status: Chronic Comment: (6) KHANG (obstructive sleep apnea) Status: Chronic (7) Secondary pulmonary arterial hypertension Status: Chronic (8) Type 2 diabetes mellitus Status: Chronic Past Medical History - Allergies and Home Meds Allergies/Adverse Reactions: Allergies calcium Allergy (Unknown, Verified 04/06/20 13:47) constipation furosemide Allergy (Unknown, Verified 04/06/20 13:47) Constpation amiloride Allergy (Verified 04/06/20 13:47) NEEDS FOLLOW-UP azithromycin [From Zithromax Z-Rickey] Allergy (Verified 04/06/20 13:47) NEEDS FOLLOW-UP bumetanide Allergy (Verified 04/06/20 13:47) Unknown chlorthalidone Allergy (Verified 04/06/20 13:47) Unknown clonidine HCl [From Catapres] Allergy (Verified 04/06/20 13:47) Rash diltiazem Allergy (Verified 04/06/20 13:47) Unknown gemfibrozil Allergy (Verified 04/06/20 13:47) Unknown hydralazine [Hydralazine] Allergy (Verified 04/06/20 13:47) Swelling lisinopril Allergy (Verified 04/06/20 13:47) NEEDS FOLLOW-UP losartan [Losartan] Allergy (Verified 04/06/20 13:47) Unknown minoxidil Allergy (Verified 04/06/20 13:47) Unknown nifedipine Allergy (Verified 04/06/20 13:47) Unknown simvastatin [From Zocor] Allergy (Verified 04/06/20 13:47) Unknown triamterene [From Dyazide] Allergy (Verified 04/06/20 13:47) Unknown valdecoxib [From Bextra] Allergy (Verified 04/06/20 13:47) Unknown verapamil [Verapamil] Allergy (Verified 04/06/20 13:47) Unknown atorvastatin Adverse Reaction (Unknown, Verified 04/06/20 13:47) Swelling and cramping of the legs clonidine [From Catapres] Adverse Reaction (Unknown, Verified 04/06/20 13:47) Unknown esomeprazole [From Nexium] Adverse Reaction (Unknown, Verified 04/06/20 13:47) Swelling metformin [From Glucophage] Adverse Reaction (Unknown, Verified 04/06/20 13:47) Other kidney fxn worsened rosuvastatin [From Crestor] Adverse Reaction (Unknown, Verified 04/06/20 13:47) leg cramps/ swelling atorvastatin calcium [From Lipitor] Adverse Reaction (Verified 04/06/20 13:47) Leg cramps/aching celecoxib [From Celebrex] Adverse Reaction (Verified 04/06/20 13:47) Leg aching hydrochlorothiazide Adverse Reaction (Verified 04/06/20 13:47) Legs aching indapamide Adverse Reaction (Verified 04/06/20 13:47) Other insulin detemir [From Levemir] Adverse Reaction (Verified 04/06/20 13:47) Unknown lansoprazole [From Prevacid] Adverse Reaction (Verified 04/06/20 13:47) Legs aching metformin HCl [From Glucophage] Adverse Reaction (Verified 04/06/20 13:47) Diarrhea pravastatin Adverse Reaction (Verified 04/06/20 13:47) Legs aching rosuvastatin calcium [From Crestor] Adverse Reaction (Verified 04/06/20 13:47) Legs aching Primary Care Physician: Hamzah Wallis MD [Primary Care Provider] - Doctors: cardiology: Korina Surgical History: appendectomy, cholecystectomy Lives: Spouse/ Significant Other Smoking Status: Never smoker - Family History Maternal Family History: Family History (Last Reviewed 04/06/20 @ 13:47 by Ani Davalos) Mother Diabetes Heart disease CVA (cerebral vascular accident) Myocardial infarction Father Cancer Brother Kidney disease Sister Diabetes Hypertension Mother Diabetes Heart disease CVA (cerebral vascular accident) Myocardial infarction Father Cancer Sister Hypertension Diabetes Family History: Reports: 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history Review of Systems General: Reports: Malaise. Denies: Chills, Fever, Sweats Eyes: Denies: Visual changes - bilaterally, Diplopia ENT: Denies: Bilateral ear pain, Rhinorrhea, Sore throat Cardiovascular: Denies: Chest pain, Palpitations Respiratory: Reports: Dyspnea, Cough - chronic, BACK PANEL PADDER, unchanged, Dyspnea on exertion, Orthopnea, Paroxysmal nocturnal dyspnea. Denies: Sputum Gastrointestinal: Denies: Abdominal pain, Nausea, Vomiting, Diarrhea, Melena, Hematochezia Genitourinary: Denies: Dysuria, Hematuria, Frequency Musculoskeletal: Reports: Swelling. Denies: Myalgias, Back pain, Extremity Pain Skin: Denies: Rash, Wounds Neurological: Denies: Headache, Weakness, Numbness Physical Exam Vital Signs/Narrative: Vital Signs Temp Pulse Resp BP Pulse Ox 04/08/20 15:05 97.9 F 74 18 226/51 H 95 04/08/20 14:57 97.9 F 74 18 226/51 H 95 Inital Vital Signs reviewed: Yes General: Well nourished, Well developed, No Acute Distress - but tachypneic at rest Head: Normocephalic, Atraumatic Eyes: Perrl, EOMI ENT: Moist mucous membranes, No rhinorrhea Neck: Supple, Nontender, - - +JVD Cardiovascular: Regular rate, Regular rhythm, No murmurs Respiratory: No distress, Chest nontender, Wheezing. Negative for: Rales, Rhonchi Abdomen: Soft, Nontender, Nondistended, Normal bowel sounds Back: Nontender, Normal Inspection Extremities: Nontender, Edema - 3+ BLE to knees, symmetric. Negative for: Calf Tenderness Skin: Normal color, No rash, No Trauma Neurological: Alert, Oriented x3, Cranial nerves II-XII grossly intact, Normal Strength, Normal Sensation Psychological: Normal affect, Normal Mood Diagnostic/Tx/Re-eval Chest X-Ray - ED: 1 View, Read by ED Physician, CHF Impressions Chest X-Ray 04/08/20 16:05 IMPRESSION: Mild pulmonary vascular congestion. Electronically Signed: Josué Murdock MD at 16:21 EST Tel , Service support , 04/08/20 16:05 Chest 1 View (Portable) [RAD] Stat 04/08/20 15:50 Mucosa - Nose SARS-CoV-2 Antigen (Rapid) - Final Laboratory Results 04/08/20 04/08/20 15:50 15:50 WBC 7.8 RBC 2.70 L Hgb 8.1 L Hct 25.3 L MCV 93.7 MCH 30.0 MCHC 32.0 RDW Std Deviation 52.1 H RDW Coeff of Pepe 15.3 H Plt Count 90 L MPV 12.0 Immature Gran % (Auto) 0.400 Neut % (Auto) 76.7 H Lymph % (Auto) 6.9 L [place] % (Auto) 8.4 Eos % (Auto) 7.2 H Baso % (Auto) 0.4 Absolute Neuts (auto) 6.0 Absolute Lymphs (auto) 0.54 L Nucleated RBC % 0 Sodium 143 Potassium 4.3 Chloride 117 H Carbon Dioxide 19.0 L Anion Gap 7 BUN 33 H Creatinine 3.11 H Estim Creat Clear Calc 13.91 Est GFR (MDRD) Af Amer 19 L Est GFR (MDRD) Non-Af 16 L BUN/Creatinine Ratio 10.6 Glucose 212 H Calcium 9.2 Troponin I 0.030 - Rhythm Strip Rhythm Strip: Sinus Rhythm Rate: 73 Ectopy: None - EKG Initial EKG Interpretation: Sinus Rhythm, No Acute Injury Pattern Treatment - Dyspnea: NTG SL, - - zaroxylyn - Medical Decision Making Initially was going to give the patient Lasix, but it showed up on her allergy list which is lengthy. Therefore she was given a dose of Zaroxolyn and nitroglycerin. She states she is breathing a little better but her blood pressure still around 220 systolic. Her work-up is consistent with decompensated congestive heart failure. On further discussion with her about her Lasix, as she initially stated that she was not on a diuretic, she states that she is supposed to be taking her Lasix but stopped taking it a couple of months ago because she was getting short of breath and swollen and thought that meant she was allergic to it. I cleared this up with her, she does not get angioedema or hives/urticaria, and I think the symptoms are more indicative of her congestive heart failure for which she needs the Lasix. She understood that and so I also gave her a dose of Lasix. She is not hypoxic however has respiratory insufficiency given that she is dyspneic with rest, so plan is to admit to the hospital. Her Covid test is negative. Discussed with the hospitalist Dr. Aguilar. ED Disposition - Plan for ED Patient: Disposition: Acute Care Hospital [facility] Diagnosis: Acute exacerbation of CHF (congestive heart failure), Acute respiratory insufficiency, Anemia in chronic kidney disease (CKD), Chronic renal failure, stage 4 (severe) Referrals: Hamzah Wallis MD [Primary Care Provider] -
[2020-04-08] MEDS: metOLazone 5 MG Tablet PO (15:56)
--- NOTE | 2020-04-08 16:05 | RAD_ITS ---
STUDY: X-RAY CHEST REASON FOR EXAM: Female, 74 years old. Shortness of breath TECHNIQUE: Frontal view of the chest COMPARISON: 03/09/20 FINDINGS: There are mild congestive changes noted. The lungs are otherwise clear. There are no pleural effusions. There is no pneumothorax. The heart is large, but stable. In size. The visualized osseous structures are within normal limits. RAD/Chest 1 View (Portable) IMPRESSION: Mild pulmonary vascular congestion. Electronically Signed: Josué Murdock MD at 16:21 EST Tel , Service support ,
[2020-04-08 16:35] LABS: Anion Gap 7 (5-15); BUN 33 mg/dL (7-18); BUN/Creat Ratio 10.6 RATIO (10-20); Calcium,Total 9.2 mg/dL (8.5-10.1); Chloride 117 mmol/L (98-107); Creatinine, Serum 3.11 mg/dL (0.55-1.02); EST Glomerular Filtration Rate 16 mL/min (>60); Est Glom Filt Rate - Afr Amer 19 mL/min (>60); Estimated Creatinine Clearance 13.91 ml/min; Glucose 212 mg/dL (74-106); Potassium 4.3 mmol/L (3.5-5.1); Sodium Level 143 mmol/L (136-145)
[2020-04-08] MEDS: Nitroglycerin SL (ED/IMG/CATH) 0.4 MG TABLET SUBLINGUAL (16:45)
[2020-04-08 17:18] LABS: Absolute Lymphocyte Count 0.54 X10^3/uL (0.83-4.51); Basophil# 0.03 X10^3/uL; Basophil% 0.4 % (0-1); Eosinophil# 0.56 X10^3/uL; Eosinophils% 7.2 % (0-5); Hematocrit 25.3 % (37-47); Hemoglobin 8.1 g/dL (12.0-15.0); Lymphocyte # 0.54 X10^3/ul (4.0); Lymphocyte % 6.9 % (19-41); Mean Corpuscular Volume 93.7 fL (81-99); Monocyte# 0.65 X10^3/uL; Monocyte% 8.4 % (0-10); NRBC Flagged by Analyzer 0 % (0-5); Neutrophil # 5.97 X10^3/uL (2.7-7.7); Neutrophil % 76.7 % (47-70); POSITIVE COUNT YES; POSITIVE DIFFERENTIAL YES; Platelet Count 90 K/mm3 (150-450); RBC Distribution Width CV 15.3 % (11.6-14.6); RBC Distribution Width SD 52.1 fl (35.1-43.9); White Blood Count 7.8 K/mm3 (4.4-11.0)
[2020-04-08 17:20] LABS: Differential Indicated SCAN CRITERIA MET
[2020-04-08 17:28] LABS: Anisocytosis RARE; Macrocytosis RARE; Red Cell Morphology N CHROM NORMAL (NORM C&C)
[2020-04-08 17:29] LABS: Hypochromasia RARE; Platelet Estimate MOD DEC (ADEQ)
[2020-04-08] MEDS: Furosemide 40 MG/4 ML Vial IV (17:49)
--- NOTE | 2020-04-08 18:28 | HP.PCM_ITS ---
History of Present Illness Date of Admission: 04/08/20 Ms. Hobson is a 74 year old WF with an extensive past medical history that includes HFpEF, anemia of chronic renal disease, OA, CKD stage IV, diverticular disease, HTN, GERD, diverticulosis, HPL, TIA, secondary hyperparathyroidism, morbid obesity, KHANG, psoriasis, rheumatoid arthritis, PAH, DM 2, and chronic pain who presented to the emergency department on 04/08/2020 with a chief complaint of shortness of breath. [place] [id number] with a syncopal episode and she states that since then she has had some increasing shortness of breath that has progressively gotten worse with time. At admission her blood pressure had been markedly elevated and per her primary care follow-up note this is been an issue for a couple years prior to that admission. She also notes that her legs have been much more swollen than usual and her confirms this. She has been sleeping in her recliner at home as it is difficult for her to lie flat secondary to orthopnea. She complains of chills but denies fevers, chest pain, nausea, vomiting, tingling, numbness, or weakness. She denied being on a diuretic but her med reconciliation shows that she is on Lasix 40 mg a day at home. She has chronic kidney disease and follows with Dr. Aguilar. She is afebrile with a normal heart rate but is considerably hypertensive in the emergency department with blood pressure ranges 178/80 3-2 27/53. Her respiratory rate is within normal limits and her oxygen saturations are 96 to 99% on 2 L nasal cannula. Her CBC shows a chronic stable anemia with a hemoglobin of 8.1, thrombocytopenia with a platelet count of 90,000. Her BMP shows a serum chloride of 117, carbon dioxide of 19, a BUN of 33 and a creatinine of 3.11 which appears close to her baseline, her troponin was 0.03 is actually improved when compared to previous troponins and her BUN was 1188 which is her highest of record here. X-ray shows mild pulmonary vascular congestion. She had a recent echo done on 03/10/2020 that showed normal LV size with moderate concentric LVH, EF of 65%, stage II diastolic dysfunction and a mildly enlarged left atrium. She will be admitted to PCU for further diuresis. Past Medical History Past Medical History (Chronic Problems): Chronic Problems (Last Reviewed 04/06/20 @ 13:47 by Ani Davalos) Dyspnea on minimal exertion (Chronic) Type 2 diabetes mellitus (Chronic) Anemia (Chronic) Gastritis determined by endoscopy (Chronic) Acute exacerbation of CHF (congestive heart failure) (Chronic) Anemia in chronic kidney disease (CKD) (Chronic) Chronic diastolic (congestive) heart failure (Chronic) Secondary pulmonary arterial hypertension (Chronic) Essential (primary) hypertension (Chronic) HLD (hyperlipidemia) (Chronic) Chronic renal failure, stage 4 (severe) (Chronic) KHANG (obstructive sleep apnea) (Chronic) Hypersomnolence (Chronic) Bilateral edema of lower extremity (Chronic) Medical History: Medical History (Last Reviewed 04/08/20 @ 19:[address] Ale Aguilar, DO) Chronic diastolic (congestive) heart failure (Chronic) I50.32 Secondary pulmonary arterial hypertension (Chronic) I27.21 Essential (primary) hypertension (Chronic) I10 HLD (hyperlipidemia) (Chronic) E78.5 Chronic renal failure, stage 4 (severe) (Chronic) N18.4 KHANG (obstructive sleep apnea) (Chronic) G47.33 Hypersomnolence (Chronic) G47.10 Bilateral edema of lower extremity (Chronic) R60.0 Diverticular disease K57.90 Hyperkalemia E87.5 Hyperparathyroidism E21.3 Anemia of chronic disease D63.8 Chronic osteoarthritis M19.90 GERD (gastroesophageal reflux disease) K21.9 History of diverticulosis Z87.19 Left carotid bruit R09.89 Morbid obesity E66.01 BMI 39 on 12/08/18 Neuropathy G62.9 Psoriasis L40.9 Renal artery atherosclerosis I70.1 moderate 3 renal arteries on left, anatomical variation Rheumatoid arthritis M06.9 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 multiple lacunar strokes related to HTN left tongue deviation Type 2 diabetes mellitus treated with insulin E11.9, Z79.4 Acute on chronic diastolic (congestive) heart failure (Resolved) I50.33 HTN (hypertension), malignant (Resolved) I10 5 drug therapy Hx of mini strokes Uncontrolled hypertension I10 Allergies calcium Allergy (Unknown, Verified 04/06/20 13:47) constipation furosemide Allergy (Unknown, Verified 04/06/20 13:47) Constpation amiloride Allergy (Verified 04/06/20 13:47) NEEDS FOLLOW-UP azithromycin [From Zithromax Z-Rickey] Allergy (Verified 04/06/20 13:47) NEEDS FOLLOW-UP bumetanide Allergy (Verified 04/06/20 13:47) Unknown chlorthalidone Allergy (Verified 04/06/20 13:47) Unknown clonidine HCl [From Catapres] Allergy (Verified 04/06/20 13:47) Rash diltiazem Allergy (Verified 04/06/20 13:47) Unknown gemfibrozil Allergy (Verified 04/06/20 13:47) Unknown hydralazine [Hydralazine] Allergy (Verified 04/06/20 13:47) Swelling lisinopril Allergy (Verified 04/06/20 13:47) NEEDS FOLLOW-UP losartan [Losartan] Allergy (Verified 04/06/20 13:47) Unknown minoxidil Allergy (Verified 04/06/20 13:47) Unknown nifedipine Allergy (Verified 04/06/20 13:47) Unknown simvastatin [From Zocor] Allergy (Verified 04/06/20 13:47) Unknown triamterene [From Dyazide] Allergy (Verified 04/06/20 13:47) Unknown valdecoxib [From Bextra] Allergy (Verified 04/06/20 13:47) Unknown verapamil [Verapamil] Allergy (Verified 04/06/20 13:47) Unknown atorvastatin Adverse Reaction (Unknown, Verified 04/06/20 13:47) Swelling and cramping of the legs clonidine [From Catapres] Adverse Reaction (Unknown, Verified 04/06/20 13:47) Unknown esomeprazole [From Nexium] Adverse Reaction (Unknown, Verified 04/06/20 13:47) Swelling metformin [From Glucophage] Adverse Reaction (Unknown, Verified 04/06/20 13:47) Other kidney fxn worsened rosuvastatin [From Crestor] Adverse Reaction (Unknown, Verified 04/06/20 13:47) leg cramps/ swelling atorvastatin calcium [From Lipitor] Adverse Reaction (Verified 04/06/20 13:47) Leg cramps/aching celecoxib [From Celebrex] Adverse Reaction (Verified 04/06/20 13:47) Leg aching hydrochlorothiazide Adverse Reaction (Verified 04/06/20 13:47) Legs aching indapamide Adverse Reaction (Verified 04/06/20 13:47) Other insulin detemir [From Levemir] Adverse Reaction (Verified 04/06/20 13:47) Unknown lansoprazole [From Prevacid] Adverse Reaction (Verified 04/06/20 13:47) Legs aching metformin HCl [From Glucophage] Adverse Reaction (Verified 04/06/20 13:47) Diarrhea pravastatin Adverse Reaction (Verified 04/06/20 13:47) Legs aching rosuvastatin calcium [From Crestor] Adverse Reaction (Verified 04/06/20 13:47) Legs aching Home Medications: Ambulatory Orders Medication Instructions Recorded atorvastatin 10 mg tablet 10 mg PO QHS #90 tab 09/29/19 calcitriol 0.25 mcg capsule 0.25 mcg PO DAILY #90 cap 09/29/19 duloxetine 30 mg capsule,delayed 30 mg PO DAILY #90 cap 09/29/19 release sitagliptin 100 mg tablet 100 mg PO DAILY #90 tab 09/29/19 Doxazosin Mesylate [Cardura] 4 mg PO BID 10/06/19 Hydroxychloroquine [Plaquenil] 200 mg PO BIDCM 10/06/19 Iron,Carbonyl [Carbonyl Iron] 65 mg PO DAILY 10/06/19 hydralazine 100 mg tablet 100 mg PO TID #270 tab 10/28/19 tramadol 50 mg tablet 50 mg PO TID PRN tab 11/13/19 carvedilol 25 mg tablet 25 mg PO BID #180 tab 01/13/20 Ascorbate Calcium/Bioflavonoid 1 tab PO DAILY 03/09/20 [Jeannette-C 500 mg Tablet] Insulin Glargine [Lantus SoloStar 38 unit SC DAILY 03/09/20 Pen] Isosorbide Mononitrate [Isosorbide 60 mg PO DAILY 03/09/20 Mononitrate ER] coenzyme Q10 100 mg capsule 100 mg PO DAILY cap 03/23/20 furosemide 40 mg tablet 40 mg PO DAILY tab 03/23/20 omeprazole 20 mg capsule,delayed 20 mg PO DAILY #90 cap 04/04/20 release Amlodipine [Norvasc] 5 mg PO DAILY 04/08/20 Surgical History: Surgical History (Last Reviewed 04/08/20 @ 19:[address] Ale Aguilar DO) History of appendectomy Z90.49 S/P breast lumpectomy Z98.890 benign gallbladder removed surgery on finger due to infection Surgical History: appendectomy, cholecystectomy Psychiatric History: 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psych hx RENAL DIALYSIS RN History: 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RENAL DIALYSIS RN history Lives: Spouse/ Significant Other Smoking Status: Never smoker Tobacco Use: Non-smoker Alcohol: None Drugs: None - *Family History Maternal Family History: Family History (Last Reviewed 04/08/20 @ 19:[address] Ale Aguilar DO) Mother Diabetes Heart disease CVA (cerebral vascular accident) Myocardial infarction Father Cancer Brother Kidney disease Sister Diabetes Hypertension Mother Diabetes Heart disease CVA (cerebral vascular accident) Myocardial infarction Father Cancer Sister Hypertension Diabetes History Items: 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history Review of Systems Constitutional: Reports: Chills, Weakness. Denies: Anorexia, Fever, Night Sweats, Malaise, Weight Change Eyes: Denies: Blurred vision, Cataracts, Conjunctivae Inflammation, Double vision, Drainage, Eyelid Inflammation, Pain, Vision Change HEENT: Reports: Difficulty Hearing. Denies: Ear Pain, Eye Pain, Hard of Hearing, Head Aches, Nasal bleeding, Nasal Congestion, Post Nasal Drip, Sinus Congestion, Sinus Drainage, Sore Throat, Visual Changes Cardiovascular: Reports: Edema, Orthopnea. Denies: Chest Pain, Claudication, Chest Pressure, Chest Tightness, Heaviness, Light Headedness, Palpitations, Paroxysmal Noc. Dyspnea, Syncope Respiratory: Reports: Shortness of Breath, Shortness of breath upon exertion. Denies: Cough, Hemoptysis, Pleuritic Pain, Shortness of breath at rest, Sputum production, Wheezing Gastrointestinal: Reports: Diarrhea - Chronic. Denies: Abdominal Pain, Constipation, Dyspepsia, Hematemesis, Hematochezia, Nausea, Melena, Vomiting Genitourinary: Reports: Incontinence, Nocturia. Denies: Dysuria, Frequency, Hematuria, Hesitancy, Retention, Urgency Musculoskeletal: Denies: Back Pain, Joint Pain, Joint stiffness, Joint swelling, Joint Tenderness, Muscle pain, Neck Pain Skin: Denies: Dryness, Jaundice, Lesions, Pruritis, Rash, Skin Changes, Wounds Neurological: Denies: Balance problems, Blurred vision, Double vision, Change in Speech, Slurred speech, Confusion, Difficulty swallowing, Focal weakness, Headaches, Incoordination, Numbness, Tingling, Tremor, Seizures Psychiatric: Denies: Anxiety, Depression Endocrine: Denies: Change in Body Habitus, Heat/ Cold Intolerance, Polydipsia, Polyuria Hematologic/ Lymphatic: Denies: Adenopathy, Anemia, Easy Bruising, Easy Bleeding, Petechiae, Purpura VTE Information - Inpt Only VTE Present on Admission: No VTE Mechan Device Prophylaxis: SCD's VTE Pharm Prophylaxis ordered?: Yes Patient Problems: Active and Suspected Problems (Last Reviewed 04/06/20 @ 13:47 by Ani Davalos) Acute respiratory insufficiency (Acute) - Physical Exam Vitals/I&O's: Vital Signs Temp Pulse Resp BP Pulse Ox 98.0 F 77 18 221/61 H 96 04/08/20 17:28 04/08/20 17:51 04/08/20 17:51 04/08/20 17:51 04/08/20 17:51 Oxygen Flow Rate (L/min) 2 Oxygen Delivery Method Nasal Cannula Weight: 110.4 kg Body Mass Index (BMI) 41.8 Finger Stick Blood Glucose 175 General: Alert, Oriented x3, Cooperative, No apparent distress, Well developed, Well nourished, - - An older white female who appears older than stated age, sitting up in bed, at bedside, appears very tired but nontoxic HEENT: Atraumatic, PERRLA, EOMI, EAC Clear Oral: Moist Mucosa, No Gingival or Mucosal Lesions/ Ulcerations, - - Short thick neck Neck: Supple, Negative Carotid Bruits, No Nodes, No Nuchal Rigidity, Trachea Midline, Thyroid Normal Size and Texture, JVD, Bilateral, - - Positive hepatojugular reflux Lungs: No rhonchi, No wheeze, Diminished - Lateral bases, Rales - Bilateral bases, Short of Breath - Especially with longer conversations Cardiovascular: Regular rate, Regular Rhythm, Normal S1, Normal S2, No murmurs, No Ectopic Activity, No rub noted, - - S4 present Abdomen: Bowel Sounds Present, Soft, Non Tender, Non-Distended, Obese Extremities: No clubbing, No cyanosis, Capillary Refill Less than 3 Seconds, Edema - 2+ bilateral lower extremity pitting edema, Peripheral Pulses Normal Skin: No rashes, No breakdown, - - Lower extremity skin appears taut and shiny Musculoskeletal: No Tenderness to Palpation of Joints or Extremities, No Muscle Wasting, Arthritic Changes Lymphatic: No Cervical, Supraclavicular, or Inguinal Adenopathy Neurological: Cranial nerves II-XII grossly intact, Neuro grossly intact, Muscle tone normal, Coordination normal Psych/Mental Status: Appropriate, Flat Affect Microbiology Past 72 Hours 04/08/20 15:50 Mucosa - Nose SARS-CoV-2 Antigen (Rapid) - Final Laboratory Results 04/08/20 15:50: WBC 7.8, RBC 2.70 L, Hgb 8.1 L, Hct 25.3 L, MCV 93.7, MCH 30.0, MCHC 32.0, RDW Std Deviation 52.1 H, RDW Coeff of Pepe 15.3 H, Plt Count 90 L, MPV 12.0, Immature Gran % (Auto) 0.400, Neut % (Auto) 76.7 H, Lymph % (Auto) 6.9 L, Glynn % (Auto) 8.4, Eos % (Auto) 7.2 H, Baso % (Auto) 0.4, Absolute Neuts (auto) 6.0, Absolute Lymphs (auto) 0.54 L, Nucleated RBC % 0, Differential Comment SEE COMMENT, Platelet Estimate MOD DEC, RBC Morphology N CHROM, Hypochromasia RARE, Anisocytosis RARE, Macrocytosis RARE 04/08/20 15:50: Sodium 143, Potassium 4.3, Chloride 117 H, Carbon Dioxide 19.0 L , Anion Gap 7, BUN 33 H, Creatinine 3.11 H, Estim Creat Clear Calc 13.91, Est GFR (MDRD) Af Amer 19 L, Est GFR (MDRD) Non-Af 16 L, BUN/Creatinine Ratio 10.6, Glucose 212 H, Calcium 9.2, Troponin I 0.030 04/08/20 15:50: B-Natriuretic Peptide 1188.0 H Current Medications Acetaminophen (Acetaminophen 325 Mg Tablet) 650 mg PO Q6H PRN PRN PRN Reason: Pain Score 1-10/Temp > 100.7 F Al Hydroxide/Mg Hydroxide (Mag Hydrox/Al Hydrox/Simeth 30 Ml Udc) 30 ml PO Q6H PRN PRN PRN Reason: Gastric Burning Albuterol Sulfate (Albuterol 2.5 Mg/3 Ml Vial.Neb.) 2.5 mg INHALATION Q2H PRN PRN PRN Reason: SOB/Wheezing Amlodipine Besylate (Amlodipine 5 Mg Tablet) 5 mg PO DAILY [facility] Atorvastatin Calcium (Atorvastatin Calcium 10 Mg Tablet) 10 mg PO QHS [facility] Calcitriol (Calcitriol 0.25 Mcg Capsule) 0.25 mcg PO DAILY [facility] Carvedilol (Carvedilol 25 Mg Tablet) 25 mg PO BID [facility] Doxazosin Mesylate (Doxazosin 4 Mg Tablet) 4 mg PO BID [facility] Duloxetine HCl (Duloxetine Hcl 30 Mg Capsule) 30 mg PO DAILY [facility] Heparin Sodium (Porcine) (Heparin Injection (Vial) 5,000 Unit/Ml Vial) 5,000 unit SC Q8 [facility] Hydroxychloroquine Sulfate (Hydroxychloroquine 200 Mg Tablet) [facility] Furosemide 500 mg/ N/A 50 mls @ 1 mls/hr CONT INF .Q50H [facility] Insulin Glargine (Insulin Glargine 100 Units/Ml Pen) 38 units SC DAILY [facility] Insulin Human Lispro (Insulin Lispro 100 Unit/Ml Insuln.Pen) 0 unit SC ACHS [facility]UAN[facility]; Protocol Iron (Iron Carbonyl 45 Mg Capsule) 65 mg PO DAILY [facility] Isosorbide Mononitrate (Isosorbide Mononitrate 60 Mg Tablet) 60 mg PO DAILY [facility] Melatonin (Melatonin 3 Mg Tablet) 3 mg PO QHS PRN PRN PRN Reason: INSOMNIA Nitroglycerin (Nitroglycerin Oint 1 Inch Packet) 1 inch TD X1 ONE Stop: 04/08/20 18:22 Non-Formulary Medication (Hydralazine Hcl) 100 mg PO TID [facility] Non-Formulary Medication (Omeprazole) 20 mg PO DAILY [facility] Ondansetron HCl (Ondansetron 4 Mg/2 Ml Vial) 4 mg IV Q8H PRN PRN PRN Reason: NAUSEA/VOMITING Senna/Docusate Sodium (Senna/Docusate Sodium 1 Tablet) 2 tablet PO BID PRN PRN PRN Reason: Constipation Sodium Chloride (0.9% Saline Lock 10 Ml Syringe) 10 - 40 ml IV UD PRN PRN Reason: SALINE FLUSH Tramadol HCl (Tramadol 50 Mg Tablet) 50 mg PO TID PRN PRN Reason: Pain Score 1-10 Assessment/Plan All Active Problems (Last Reviewed 04/06/20 @ 13:47 by Ani Davalos) GI bleed (Resolved) Syncope (Acute) Acute respiratory insufficiency (Acute) Acute on chronic diastolic (congestive) heart failure (Resolved) Chest pain (Resolved) HTN (hypertension), malignant (Resolved) Acute hypoxic respiratory insufficiency secondary to decompensated HFpEF -No need to repeat echo as patient just had one earlier this month -chest x-ray shows volume overload -Continue supplemental oxygen and wean as able -I suspect her heart failure at this time is related to her severe hypertension and volume overload(40 mg of Lasix is lately not enough given her renal failure) -BNP is 1188 -Initiate Lasix drip -Monitor serum creatinine closely -Strict I's and O's -Daily weights--> it appears that the patient is a at least 3 pounds since her last office visit with her primary care physician in mid March -Cardiac diet with fluid restriction at 1500 cc -Telemetry -Nitropaste -May need to continue metolazone addition to Lasix if patient tolerates at discharge Hypertensive urgency -Continue carvedilol 25 mg twice daily -Continue Cardura 4 mg twice daily -Continue hydralazine 100 mg 3 times daily -Continue Norvasc 5 mg daily -Continue isosorbide mononitrate 60 mg daily -Nitropaste -May need further titration of medications if blood pressure remains elevated -Current goal blood pressure is systolic of approximately 180 secondary to marked elevation Non anion gap metabolic acidosis secondary to hyperchloremia -Repeat BMP in a.m. -Diuresis CKD stage IV -This is nonoliguric renal failure -Creatinine appears close to baseline -Watch closely with diuresis -Consider nephrology consult if creatinine worsens HPL -Continue statin Chronic anemia secondary to renal disease -Hemoglobin is stable -Repeat CBC in a.m. -Sinew iron supplementation Thrombocytopenia -Appears somewhat chronic -Repeat CBC in a.m. -Okay for DVT prophylaxis at this time -Should improve with volume contraction DM-2 -Continue Lantus 38 units at at bedtime -SSI -Hold oral diabetic medications Depression -Continue duloxetine GERD -Continue PPI KHANG -Patient noncompliant Morbid obesity -Recommend weight loss -Complicates overall medical complexity RA -Continue chloroquine DVT prophylaxis -Subcu heparin 3 times daily CODE STATUS -DNR CCA no intubation Inpatient E&M: 52034 Init Hosp L3
[2020-04-08] MEDS: Nitroglycerin Oint 1 INCH PACKET TD (18:54)
[2020-04-08] MEDS: hydrALAZINE 50 MG Tablet 100 MG PO (18:56)
[2020-04-08] MEDS: Furosemide 500 MG in Empty Viaflex 50 mL 1 EACH CONT INF (20:02)
[2020-04-08] MEDS: 0.9% Saline Lock 10 ML Syringe IV (20:05)
[2020-04-08] MEDS: Atorvastatin Calcium 10 MG Tablet PO (22:28)
[2020-04-08] MEDS: Carvedilol 25 MG Tablet PO (22:28)
[2020-04-08] MEDS: Heparin Injection (Vial) 5,000 UNIT/ML VIAL 5000 UNIT SC (22:28)
[2020-04-08] MEDS: Doxazosin 4 MG Tablet PO (22:28)
[2020-04-08 22:35] LABS: Bedside Glucose 170 mg/dL (70-110)
--- NOTE | 2020-04-08 22:47 | PCS.PANDOC ---
PANDEMIC DOCUMENTATION INITIATED: Date: 04/08/2020 Time: 190
[2020-04-09] VITALS (19 sets, daily range): BP systolic 122–201; BP diastolic 51–85; PULSE 62–78; RESP 16–22; TEMP 36.4–37.3; O2SAT 95–100
[2020-04-09] MEDS: hydrALAZINE 20 MG/ML Vial 5 MG IV ×2 (00:58→11:26)
[2020-04-09] MEDS: 0.9% Saline Lock 10 ML Syringe IV ×4 (00:59→23:17)
[2020-04-09] MEDS: Albuterol 2.5 MG/3 ML VIAL.NEB. INHALATION (01:40)
[2020-04-09] MEDS: Sodium Chloride 0.65% 1 SPRAY SPRAY.BTL 2 SPRAY NASAL ×3 (02:29→20:46)
[2020-04-09] MEDS: Heparin Injection (Vial) 5,000 UNIT/ML VIAL 5000 UNIT SC ×3 (06:31→23:17)
[2020-04-09] MEDS: hydrALAZINE 50 MG Tablet 100 MG PO ×3 (06:33→20:47)
[2020-04-09 06:41] LABS: Bedside Glucose 158 mg/dL (70-110)
[2020-04-09 07:57] LABS: Absolute Lymphocyte Count 0.77 X10^3/uL (0.83-4.51); Absolute Neutrophil Count 6.3 X10^3/uL (2.0-7.7); Basophil# 0.03 X10^3/uL; Basophil% 0.3 % (0-1); Eosinophils% 8.1 % (0-5); Hematocrit 25.6 % (37-47); Lymphocyte # 0.77 X10^3/ul (4.0); Lymphocyte % 8.9 % (19-41); Mean Corp Hgb Conc 31.3 g/dL (32-36); Mean Corpuscular Hgb 29.5 pg (27.0-32.0); Mean Corpuscular Volume 94.5 fL (81-99); Mean Platelet Vol. 10.7 fl (6.2-12.0); Monocyte# 0.79 X10^3/uL; Monocyte% 9.2 % (0-10); NRBC Flagged by Analyzer 0 % (0-5); Neutrophil % 73.2 % (47-70); Platelet Count 124 K/mm3 (150-450); RBC Distribution Width CV 15.2 % (11.6-14.6); RBC Distribution Width SD 52.7 fl (35.1-43.9); Red Blood Count 2.71 M/mm3 (4.2-5.4); White Blood Count 8.6 K/mm3 (4.4-11.0)
[2020-04-09 08:16] LABS: Anion Gap 9 (5-15); BUN 33 mg/dL (7-18); BUN/Creat Ratio 10.7 RATIO (10-20); Calcium,Total 9.1 mg/dL (8.5-10.1); Chloride 113 mmol/L (98-107); Creatinine, Serum 3.08 mg/dL (0.55-1.02); EST Glomerular Filtration Rate 16 mL/min (>60); Est Glom Filt Rate - Afr Amer 19 mL/min (>60); Estimated Creatinine Clearance 14.05 ml/min; Glucose 182 mg/dL (74-106); Magnesium 2.1 mg/dL (1.6-2.6); Phosphorus 4.4 mg/dL (2.5-4.9); Potassium 3.5 mmol/L (3.5-5.1); Sodium Level 144 mmol/L (136-145)
[2020-04-09] MEDS: Hydroxychloroquine 200 MG Tablet PO ×2 (08:29→16:39)
[2020-04-09] MEDS: Doxazosin 4 MG Tablet PO ×2 (08:29→20:47)
[2020-04-09] MEDS: Carvedilol 25 MG Tablet PO ×2 (08:29→20:47)
[2020-04-09] MEDS: DULoxetine Hcl 30 MG Capsule PO (08:30)
[2020-04-09] MEDS: Isosorbide Mononitrate 60 MG Tablet PO (08:30)
[2020-04-09] MEDS: amLODIPine 5 MG Tablet PO (08:31)
[2020-04-09] MEDS: Pantoprazole Sodium 20 MG Tablet PO (08:31)
[2020-04-09] MEDS: Calcitriol 0.25 MCG Capsule PO (08:32)
[2020-04-09 11:41] LABS: Bedside Glucose 191 mg/dL (70-110)
--- NOTE | 2020-04-09 13:53 | PCM.PN.HOSP ---
Patient Problems: Active and Suspected Problems (Last Reviewed 04/08/20 @ 19:[address] Ale Aguilar, DO) Acute respiratory insufficiency (Acute) Subjective: Doing well, no issues overnight. Feels little bit better than yesterday. Swelling is little bit improved Vitals/I&O's: Vital Signs Temp Pulse Resp BP Pulse Ox 98.2 F 66 17 184/85 H 98 04/09/20 08:06 04/09/20 11:26 04/09/20 08:06 04/09/20 11:26 04/09/20 08:06 Oxygen Flow Rate (L/min) 2 Oxygen Delivery Method Nasal Cannula Weight: 224 lb 6.889 oz Body Mass Index (BMI) 38.9 Finger Stick Blood Glucose 175 Intake and Output for Last 24 Hours 04/07/20 04/08/20 04/09/20 23:59 23:59 23:59 Intake Total 100 / 100 430 / 430 Output Total 2150 / 2150 Balance 100 / 100 -1720 / -1720 General: Alert, Oriented x3, Cooperative, No apparent distress HEENT: Atraumatic, PERRLA, EOMI, Normocephalic Oral: Moist Mucosa Neck: Supple, No JVD Lungs: Normal air movement, No rhonchi, No wheeze, No rales, Diminished Cardiovascular: Regular rate, Regular Rhythm, Normal S1, Normal S2, No murmurs Abdomen: Soft, Non Tender, Non-Distended, No Hepato-splenomegaly Extremities: No edema, Capillary Refill Less than 3 Seconds Skin: No rashes, No breakdown Neurological: Neuro grossly intact, Sensory exam intact to light touch and pain Psych/Mental Status: Normal Affect, Appropriate Microbiology Past 72 Hours 04/08/20 15:50 Mucosa - Nose SARS-CoV-2 Antigen (Rapid) - Final Laboratory Results 04/08/20 15:50: WBC 7.8, RBC 2.70 L, Hgb 8.1 L, Hct 25.3 L, MCV 93.7, MCH 30.0, MCHC 32.0, RDW Std Deviation 52.1 H, RDW Coeff of Pepe 15.3 H, Plt Count 90 L, MPV 12.0, Immature Gran % (Auto) 0.400, Neut % (Auto) 76.7 H, Lymph % (Auto) 6.9 L, [place] % (Auto) 8.4, Eos % (Auto) 7.2 H, Baso % (Auto) 0.4, Absolute Neuts (auto) 6.0, Absolute Lymphs (auto) 0.54 L, Nucleated RBC % 0, Differential Comment SEE COMMENT, Platelet Estimate MOD DEC, RBC Morphology N CHROM, Hypochromasia RARE, Anisocytosis RARE, Macrocytosis RARE 04/08/20 15:50: Sodium 143, Potassium 4.3, Chloride 117 H, Carbon Dioxide 19.0 L, Anion Gap 7, BUN 33 H, Creatinine 3.11 H, Estim Creat Clear Calc 13.91, Est GFR (MDRD) Af Amer 19 L, Est GFR (MDRD) Non-Af 16 L, BUN/Creatinine Ratio 10.6, Glucose 212 H, Calcium 9.2, Troponin I 0.030 04/08/20 15:50: B-Natriuretic Peptide 1188.0 H 04/08/20 22:25: POC Glucose 170 H 04/09/20 06:27: POC Glucose 158 H 04/09/20 07:12: WBC 8.6, RBC 2.71 L, Hgb 8.0 L, Hct 25.6 L, MCV 94.5, MCH 29.5, MCHC 31.3 L, RDW Std Deviation 52.7 H, RDW Coeff of Pepe 15.2 H, Plt Count 124 L, MPV 10.7, Immature Gran % (Auto) 0.300, Neut % (Auto) 73.2 H, Lymph % (Auto) 8.9 L, [place] % (Auto) 9.2, Eos % (Auto) 8.1 H, Baso % (Auto) 0.3, Absolute Neuts (auto) 6.3, Absolute Lymphs (auto) 0.77 L, Nucleated RBC % 0 04/09/20 07:12: Sodium 144, Potassium 3.5, Chloride 113 H, Carbon Dioxide 22.0, Anion Gap 9, BUN 33 H, Creatinine 3.08 H, Estim Creat Clear Calc 14.05, Est GFR (MDRD) Af Amer 19 L, Est GFR (MDRD) Non-Af 16 L, BUN/Creatinine Ratio 10.7, Glucose 182 H, Calcium 9.1, Phosphorus 4.4, Magnesium 2.1 04/09/20 11:17: POC Glucose 191 H Current Medications Acetaminophen (Acetaminophen 325 Mg Tablet) 650 mg PO Q6H PRN PRN PRN Reason: Pain Score 1-10/Temp > 100.7 F Al Hydroxide/Mg Hydroxide (Mag Hydrox/Al Hydrox/Simeth 30 Ml Udc) 30 ml PO Q6H PRN PRN PRN Reason: Gastric Burning Albuterol Sulfate (Albuterol 2.5 Mg/3 Ml Vial.Neb.) 2.5 mg INHALATION Q2H PRN PRN PRN Reason: SOB/Wheezing Last Admin: 04/09/20 01:40 Dose: 2.5 mg Documented by: Amlodipine Besylate (Amlodipine 5 Mg Tablet) 5 mg PO DAILY [facility] Last Admin: 04/09/20 08:31 Dose: 5 mg Documented by: Atorvastatin Calcium (Atorvastatin Calcium 10 Mg Tablet) 10 mg PO QHS [facility] Last Admin: 04/08/20 22:28 Dose: 10 mg Documented by: Calcitriol (Calcitriol 0.25 Mcg Capsule) 0.25 mcg PO DAILY [facility] Last Admin: 04/09/20 08:32 Dose: 0.25 mcg Documented by: Carvedilol (Carvedilol 25 Mg Tablet) 25 mg PO BID [facility] Last Admin: 04/09/20 08:29 Dose: 25 mg Documented by: Doxazosin Mesylate (Doxazosin 4 Mg Tablet) 4 mg PO BID [facility] Last Admin: 04/09/20 08:29 Dose: 4 mg Documented by: Duloxetine HCl (Duloxetine Hcl 30 Mg Capsule) 30 mg PO DAILY [facility] Last Admin: 04/09/20 08:30 Dose: 30 mg Documented by: Heparin Sodium (Porcine) (Heparin Injection (Vial) 5,000 Unit/Ml Vial) 5,000 unit SC Q8 [facility] Last Admin: 04/09/20 06:31 Dose: 5,000 unit Documented by: Hydralazine HCl (Hydralazine 50 Mg Tablet) 100 mg PO TID [facility] Last Admin: 04/09/20 06:33 Dose: 100 mg Documented by: Hydralazine HCl (Hydralazine 20 Mg/Ml Vial) 5 mg IV Q4H PRN PRN PRN Reason: SBP > 180 Last Admin: 04/09/20 11:26 Dose: 5 mg Documented by: Hydroxychloroquine Sulfate ([facility] 200 [facility]) [facility] Last Admin: 04/09/20 08:29 Dose: 200 mg Documented by: Furosemide 500 mg/ N/A 50 mls @ 1 mls/hr CONT INF .Q50H [facility] Last Admin: 04/08/20 20:02 Dose: 10 mg/hr, 1 mls/hr Documented by: Insulin Glargine (Insulin Glargine 100 Units/Ml Pen) 38 units SC DAILY [facility] Last Admin: 04/09/20 08:30 Dose: 38 units Documented by: Insulin Human Lispro (Insulin Lispro 100 Unit/Ml Insuln.Pen) 0 unit SC ACHS [facility]; Protocol Last Admin: 04/09/20 11:18 Dose: Not Given Documented by: Iron (Iron Carbonyl 45 Mg Capsule) 45 mg PO DAILY [facility] Last Admin: 04/09/20 08:30 Dose: 45 mg Documented by: Isosorbide Mononitrate (Isosorbide Mononitrate 60 Mg Tablet) 60 mg PO DAILY [facility] Last Admin: 04/09/20 08:30 Dose: 60 mg Documented by: Melatonin (Melatonin 3 Mg Tablet) 3 mg PO QHS PRN PRN PRN Reason: INSOMNIA Ondansetron HCl (Ondansetron 4 Mg/2 Ml Vial) 4 mg IV Q8H PRN PRN PRN Reason: NAUSEA/VOMITING Pantoprazole Sodium (Pantoprazole Sodium 20 Mg Tablet) 20 mg PO DAILY [facility] Last Admin: 04/09/20 08:31 Dose: 20 mg Documented by: Senna/Docusate Sodium (Senna/Docusate Sodium 1 Tablet) 2 tablet PO BID PRN PRN PRN Reason: Constipation Sodium Chloride (0.9% Saline Lock 10 Ml Syringe) 10 - 40 ml IV UD PRN PRN Reason: SALINE FLUSH Last Admin: 04/09/20 11:27 Dose: 10 ml Documented by: Sodium Chloride (Sodium Chloride 0.65% 1 [place].Btl) 2 spray NASAL TID PRN PRN PRN Reason: NASAL DRYNESS Last Admin: 04/09/20 08:35 Dose: 2 spray Documented by: Tramadol HCl (Tramadol 50 Mg Tablet) 50 mg PO TID PRN PRN Reason: Pain Score 1-10 STROKE Vital Signs/Narrative: Vital Signs Pulse BP BP 04/09/20 11:26 66 184/85 H 04/09/20 11:23 184/55 H 04/09/20 10:17 66 Medical Necessity - Tobacco Use Smoking Status: Never smoker Tobacco Use: Non-smoker Assessment/Plan All Active Problems (Last Reviewed 04/08/20 @ 19:[address] Ale Aguilar, DO) GI bleed (Resolved) Syncope (Acute) Acute respiratory insufficiency (Acute) Acute on chronic diastolic (congestive) heart failure (Resolved) Chest pain (Resolved) HTN (hypertension), malignant (Resolved) 1. Acute hypoxic respiratory insufficiency secondary to acute on chronic diastolic CHF/hypertensive urgency/HLD -Continue with Lasix drip -Blood pressure is stable, continue with her home blood pressure medications -Continue with statin -Continue with nasal cannula 2 L -BNP of 1188 partly secondary to her CKD 4 -Tricked I's and O's, and fluid restriction 1500 cc -We will likely need to be discharged on increased Lasix dose 2. DM 2/morbid obesity/CKD/anemia of chronic disease -Creatinine is improving on the Lasix drip -Hemoglobin is stable -Continue with Lantus 38 units at night, sliding scale insulin. We will hold her home medications -Discussed lifestyle modifications, her BMI is 38. -Accu-Cheks AC at bedtime 3. Depression/anxiety -Stable -Continue Cymbalta 4. GERD - -Continue with Plaquenil -Continue PPI 5. KHANG -Noncompliant 6. RA -Stable -Continue with Plaquenil DVT: Heparin Inpatient E&M: 22786 Subs Hosp L2
--- NOTE | 2020-04-09 16:39 | NURSING ---
Blood sugar 86. No adverse reaction noted. Offered snack/juice while waiting for dinner to arrive. Patient refused.
[2020-04-09 17:06] LABS: Bedside Glucose 86 mg/dL (70-110)
[2020-04-09] MEDS: Atorvastatin Calcium 10 MG Tablet PO (20:47)
[2020-04-09] MEDS: Ondansetron 4 MG/2 ML Vial IV (23:17)
[2020-04-09 23:30] LABS: Bedside Glucose 96 mg/dL (70-110)
[2020-04-10] VITALS (16 sets, daily range): BP systolic 150–169; BP diastolic 64–77; PULSE 61–76; RESP 16–20; TEMP 36.6–37.2; O2SAT 92–97
[2020-04-10] MEDS: Heparin Injection (Vial) 5,000 UNIT/ML VIAL 5000 UNIT SC ×3 (06:00→21:32)
[2020-04-10] MEDS: hydrALAZINE 50 MG Tablet 100 MG PO ×3 (06:00→21:32)
[2020-04-10] MEDS: Furosemide 500 MG in Empty Viaflex 50 mL 1 EACH CONT INF (06:32)
[2020-04-10 06:55] LABS: Bedside Glucose 88 mg/dL (70-110)
[2020-04-10 07:17] LABS: Absolute Lymphocyte Count 1.01 X10^3/uL (0.83-4.51); Absolute Neutrophil Count 5.9 X10^3/uL (2.0-7.7); Basophil# 0.02 X10^3/uL; Basophil% 0.2 % (0-1); Eosinophil# 0.72 X10^3/uL; Eosinophils% 8.4 % (0-5); Hematocrit 25.2 % (37-47); Lymphocyte # 1.01 X10^3/ul (4.0); Lymphocyte % 11.7 % (19-41); Mean Corp Hgb Conc 31.7 g/dL (32-36); Mean Corpuscular Hgb 30.1 pg (27.0-32.0); Mean Corpuscular Volume 94.7 fL (81-99); Monocyte# 0.88 X10^3/uL; Monocyte% 10.2 % (0-10); NRBC Flagged by Analyzer 0 % (0-5); Neutrophil # 5.94 X10^3/uL (2.7-7.7); Neutrophil % 69.2 % (47-70); Platelet Count 124 K/mm3 (150-450); RBC Distribution Width SD 51.4 fl (35.1-43.9); Red Blood Count 2.66 M/mm3 (4.2-5.4); White Blood Count 8.6 K/mm3 (4.4-11.0)
[2020-04-10 07:47] LABS: Anion Gap 8 (5-15); BUN 35 mg/dL (7-18); BUN/Creat Ratio 10.5 RATIO (10-20); Calcium,Total 8.8 mg/dL (8.5-10.1); Chloride 111 mmol/L (98-107); Creatinine, Serum 3.34 mg/dL (0.55-1.02); EST Glomerular Filtration Rate 14 mL/min (>60); Est Glom Filt Rate - Afr Amer 17 mL/min (>60); Estimated Creatinine Clearance 12.95 ml/min; Glucose 78 mg/dL (74-106); Potassium 3.3 mmol/L (3.5-5.1); Sodium Level 143 mmol/L (136-145)
[2020-04-10] MEDS: Doxazosin 4 MG Tablet PO ×2 (09:38→21:32)
[2020-04-10] MEDS: Calcitriol 0.25 MCG Capsule PO (09:38)
[2020-04-10] MEDS: DULoxetine Hcl 30 MG Capsule PO (09:38)
[2020-04-10] MEDS: Hydroxychloroquine 200 MG Tablet PO ×2 (09:38→17:21)
[2020-04-10] MEDS: amLODIPine 5 MG Tablet PO (09:38)
[2020-04-10] MEDS: Pantoprazole Sodium 20 MG Tablet PO (09:38)
[2020-04-10] MEDS: Carvedilol 25 MG Tablet PO ×2 (09:39→21:32)
[2020-04-10] MEDS: Isosorbide Mononitrate 60 MG Tablet PO (09:40)
[2020-04-10 09:56] LABS: Bedside Glucose 112 mg/dL (70-110)
--- NOTE | 2020-04-10 12:15 | PCM.PN.HOSP ---
Patient Problems: Active and Suspected Problems (Last Reviewed 04/08/20 @ 19:[address] Ale Aguilar, DO) Acute respiratory insufficiency (Acute) Subjective: Doing well, seems to be breathing little bit better. Swelling is significantly improved and she is down 8 pounds. Vitals/I&O's: Vital Signs Temp Pulse Resp BP Pulse Ox 99.0 F 70 16 167/69 H 97 04/10/20 09:34 04/10/20 09:34 04/10/20 09:34 04/10/20 09:34 04/10/20 09:34 Oxygen Flow Rate (L/min) 2 Oxygen Delivery Method Nasal Cannula Weight: 219 lb 9.286 oz Body Mass Index (BMI) 38.9 Finger Stick Blood Glucose 175 Intake and Output for Last 24 Hours 04/08/20 04/09/20 04/10/20 23:59 23:59 23:59 Intake Total 100 / 100 1030 / 1030 154.5 / 154.5 Output Total 3550 / 3550 250 / 250 Balance 100 / 100 -2520 / -2520 -95.5 / -95.5 General: Alert, Oriented x3, Cooperative, No apparent distress HEENT: Atraumatic, PERRLA, EOMI, Normocephalic Oral: Moist Mucosa Neck: Supple, No JVD Lungs: Normal air movement, No rhonchi, No wheeze, No rales, Diminished Cardiovascular: Regular rate, Regular Rhythm, Normal S1, Normal S2, No murmurs Abdomen: Soft, Non Tender, Non-Distended, No Hepato-splenomegaly Extremities: No edema, Capillary Refill Less than 3 Seconds Skin: No rashes, No breakdown Neurological: Neuro grossly intact, Sensory exam intact to light touch and pain Psych/Mental Status: Normal Affect, Appropriate Microbiology Past 72 Hours 04/08/20 15:50 Mucosa - Nose SARS-CoV-2 Antigen (Rapid) - Final Laboratory Results 04/09/20 16:36: POC Glucose 86 04/09/20 23:12: POC Glucose 96 04/10/20 05:45: WBC 8.6, RBC 2.66 L, Hgb 8.0 L, Hct 25.2 L, MCV 94.7, MCH 30.1, MCHC 31.7 L, RDW Std Deviation 51.4 H, RDW Coeff of Pepe 15.0 H, Plt Count 124 L, MPV 11.0, Immature Gran % (Auto) 0.300, Neut % (Auto) 69.2, Lymph % (Auto) 11.7 L, [place] % (Auto) 10.2 H, Eos % (Auto) 8.4 H, Baso % (Auto) 0.2, Absolute Neuts (auto) 5.9, Absolute Lymphs (auto) 1.01, Nucleated RBC % 0 04/10/20 05:45: Sodium 143, Potassium 3.3 L, Chloride 111 H, Carbon Dioxide 24.0, Anion Gap 8, BUN 35 H, Creatinine 3.34 H, Estim Creat Clear Calc 12.95, Est GFR (MDRD) Af Amer 17 L, Est GFR (MDRD) Non-Af 14 L, BUN/Creatinine Ratio 10.5, Glucose 78, Calcium 8.8 04/10/20 06:31: POC Glucose 88 04/10/20 09:30: POC Glucose 112 H Current Medications Acetaminophen (Acetaminophen 325 Mg Tablet) 650 mg PO Q6H PRN PRN PRN Reason: Pain Score 1-10/Temp > 100.7 F Al Hydroxide/Mg Hydroxide (Mag Hydrox/Al Hydrox/Simeth 30 Ml Udc) 30 ml PO Q6H PRN PRN PRN Reason: Gastric Burning Albuterol Sulfate (Albuterol 2.5 Mg/3 Ml Vial.Neb.) 2.5 mg INHALATION Q2H PRN PRN PRN Reason: SOB/Wheezing Last Admin: 04/09/20 01:40 Dose: 2.5 mg Documented by: Amlodipine Besylate (Amlodipine 5 Mg Tablet) 5 mg PO DAILY [facility] Last Admin: 04/10/20 09:38 Dose: 5 mg Documented by: Atorvastatin Calcium (Atorvastatin Calcium 10 Mg Tablet) 10 mg PO QHS [facility] Last Admin: 04/09/20 20:47 Dose: 10 mg Documented by: Calcitriol (Calcitriol 0.25 Mcg Capsule) 0.25 mcg PO DAILY [facility] Last Admin: 04/10/20 09:38 Dose: 0.25 mcg Documented by: Carvedilol (Carvedilol 25 Mg Tablet) 25 mg PO BID [facility] Last Admin: 04/10/20 09:39 Dose: 25 mg Documented by: Doxazosin Mesylate (Doxazosin 4 Mg Tablet) 4 mg PO BID [facility] Last Admin: 04/10/20 09:38 Dose: 4 mg Documented by: Duloxetine HCl (Duloxetine Hcl 30 Mg Capsule) 30 mg PO DAILY [facility] Last Admin: 04/10/20 09:38 Dose: 30 mg Documented by: Furosemide (Furosemide 40 Mg/4 Ml Vial) 40 mg IV BID@1000,1800 [facility] Heparin Sodium (Porcine) (Heparin Injection (Vial) 5,000 Unit/Ml Vial) 5,000 unit SC Q8 [facility] Last Admin: 04/10/20 06:00 Dose: 5,000 unit Documented by: Hydralazine HCl (Hydralazine 50 Mg Tablet) 100 mg PO TID [facility] Last Admin: 04/10/20 06:00 Dose: 100 mg Documented by: Hydralazine HCl (Hydralazine 20 Mg/Ml Vial) 5 mg IV Q4H PRN PRN PRN Reason: SBP > 180 Last Admin: 04/09/20 11:26 Dose: 5 mg Documented by: Hydroxychloroquine Sulfate (Hydroxychloroquine 200 Mg Tablet) 200 mg PO BIDCM [facility] Last Admin: 04/10/20 09:38 Dose: 200 mg Documented by: Insulin Glargine (Insulin Glargine 100 Units/Ml Pen) 38 units SC DAILY [facility] Last Admin: 04/10/20 09:40 Dose: 38 units Documented by: Insulin Human Lispro (Insulin Lispro 100 Unit/Ml Insuln.Pen) 0 unit SC ACHS [facility]; Protocol Last Admin: 04/10/20 06:31 Dose: Not Given Documented by: Iron (Iron Carbonyl 45 Mg Capsule) 45 mg PO DAILY [facility] Last Admin: 04/10/20 09:39 Dose: 45 mg Documented by: Isosorbide Mononitrate (Isosorbide Mononitrate 60 Mg Tablet) 60 mg PO DAILY [facility] Last Admin: 04/10/20 09:40 Dose: 60 mg Documented by: Melatonin (Melatonin 3 Mg Tablet) 3 mg PO QHS PRN PRN PRN Reason: INSOMNIA Ondansetron HCl (Ondansetron 4 Mg/2 Ml Vial) 4 mg IV Q8H PRN PRN PRN Reason: NAUSEA/VOMITING Last Admin: 04/09/20 23:17 Dose: 4 mg Documented by: Pantoprazole Sodium (Pantoprazole Sodium 20 Mg Tablet) 20 mg PO DAILY [facility] Last Admin: 04/10/20 09:38 Dose: 20 mg Documented by: Senna/Docusate Sodium (Senna/Docusate Sodium 1 Tablet) 2 tablet PO BID PRN PRN PRN Reason: Constipation Sodium Chloride (0.9% Saline Lock 10 Ml Syringe) 10 - 40 ml IV UD PRN PRN Reason: SALINE FLUSH Last Admin: 04/09/20 23:17 Dose: 10 ml Documented by: Sodium Chloride (Sodium Chloride 0.65% 1 [place].Btl) 2 spray NASAL TID PRN PRN PRN Reason: NASAL DRYNESS Last Admin: 04/09/20 20:46 Dose: 2 spray Documented by: Tramadol HCl (Tramadol 50 Mg Tablet) 50 mg PO TID PRN PRN Reason: Pain Score 1-10 STROKE Vital Signs/Narrative: Vital Signs Temp Pulse Resp BP Pulse Ox 04/10/20 09:34 99.0 F 70 16 167/69 H 97 Medical Necessity - Tobacco Use Smoking Status: Never smoker Tobacco Use: Non-smoker Assessment/Plan All Active Problems (Last Reviewed 04/08/20 @ 19:[address] Ale Aguilar, DO) GI bleed (Resolved) Syncope (Acute) Acute respiratory insufficiency (Acute) Acute on chronic diastolic (congestive) heart failure (Resolved) Chest pain (Resolved) HTN (hypertension), malignant (Resolved) 1. Acute hypoxic respiratory insufficiency secondary to acute on chronic diastolic CHF/hypertensive urgency/HLD -Transition to twice daily dosing of her Lasix, creatinine zari to 3.34 -Blood pressure is stable, continue with her home blood pressure medications -Continue with statin -Continue with nasal cannula 2 L, wean as able -BNP of 1188 partly secondary to her CKD 4 -Direct I's and O's, and fluid restriction 1500 cc -We will likely need to be discharged on increased Lasix dose 2. DM 2/morbid obesity/CKD/anemia of chronic disease -Hemoglobin is stable -Continue with Lantus 38 units at night, sliding scale insulin. We will hold her home medications -Discussed lifestyle modifications, her BMI is 38. -Accu-Cheks AC at bedtime 3. Depression/anxiety -Stable -Continue Cymbalta 4. GERD -Stable -Continue PPI 5. KHANG -Noncompliant 6. RA -Stable -Continue with Plaquenil DVT: Heparin Inpatient E&M: 25959 Subs Hosp L2
[2020-04-10 12:51] LABS: Bedside Glucose 141 mg/dL (70-110)
[2020-04-10] MEDS: Furosemide 40 MG/4 ML Vial IV (17:23)
[2020-04-10] MEDS: 0.9% Saline Lock 10 ML Syringe IV (17:23)
[2020-04-10 17:40] LABS: Bedside Glucose 95 mg/dL (70-110)
[2020-04-10] MEDS: Atorvastatin Calcium 10 MG Tablet PO (21:32)
[2020-04-10 22:21] LABS: Bedside Glucose 110 mg/dL (70-110)
[2020-04-11] VITALS (11 sets, daily range): BP systolic 135–170; BP diastolic 58–72; PULSE 71–77; RESP 18; TEMP 37–37.3; O2SAT 86–94
[2020-04-11] MEDS: Acetaminophen 325 MG Tablet 650 MG PO (03:13)
[2020-04-11] MEDS: Heparin Injection (Vial) 5,000 UNIT/ML VIAL 5000 UNIT SC (06:43)
[2020-04-11] MEDS: hydrALAZINE 50 MG Tablet 100 MG PO ×2 (06:43→15:43)
[2020-04-11 07:00] LABS: Anion Gap 8 (5-15); BUN 41 mg/dL (7-18); BUN/Creat Ratio 11.3 RATIO (10-20); Calcium,Total 8.7 mg/dL (8.5-10.1); Chloride 114 mmol/L (98-107); Creatinine, Serum 3.63 mg/dL (0.55-1.02); EST Glomerular Filtration Rate 13 mL/min (>60); Est Glom Filt Rate - Afr Amer 16 mL/min (>60); Estimated Creatinine Clearance 11.92 ml/min; Glucose 97 mg/dL (74-106); Potassium 3.5 mmol/L (3.5-5.1); Sodium Level 147 mmol/L (136-145)
[2020-04-11 07:01] LABS: Bedside Glucose 93 mg/dL (70-110)
--- NOTE | 2020-04-11 08:08 | PCM.PN.HOSP ---
Patient Problems: Active and Suspected Problems (Last Reviewed 04/08/20 @ 19:[address] Ale Aguilar DO) Acute respiratory insufficiency (Acute) Vitals/I&O's: Vital Signs Temp Pulse Resp BP Pulse Ox 99.1 F 72 18 170/72 H 92 04/11/20 03:10 04/11/20 07:00 04/11/20 03:10 04/11/20 06:43 04/11/20 03:10 Oxygen Flow Rate (L/min) 2 Oxygen Delivery Method Room Air Weight: 214 lb 8.156 oz Body Mass Index (BMI) 38.9 Finger Stick Blood Glucose 175 Intake and Output for Last 24 Hours 04/09/20 04/10/20 04/11/20 23:59 23:59 23:59 Intake Total 1030 / 1030 819.97 / 819.97 60 / 60 Output Total 3550 / 3550 1600 / 1600 550 / 550 Balance -2520 / -2520 -780.03 / -780.03 -490 / -490 Microbiology Past 72 Hours 04/08/20 15:50 Mucosa - Nose SARS-CoV-2 Antigen (Rapid) - Final Laboratory Results 04/10/20 09:30: POC Glucose 112 H 04/10/20 12:39: POC Glucose 141 H 04/10/20 17:14: POC Glucose 95 04/10/20 21:28: POC Glucose 110 04/11/20 06:00: Sodium 147 H, Potassium 3.5, Chloride 114 H, Carbon Dioxide 25.0, Anion Gap 8, BUN 41 H, Creatinine 3.63 H, Estim Creat Clear Calc 11.92, Est GFR (MDRD) Af Amer 16 L, Est GFR (MDRD) Non-Af 13 L, BUN/Creatinine Ratio 11.3, Glucose 97, Calcium 8.7 04/11/20 06:39: POC Glucose 93 Current Medications Acetaminophen (Acetaminophen 325 Mg Tablet) 650 mg PO Q6H PRN PRN PRN Reason: Pain Score 1-10/Temp > 100.7 F Last Admin: 04/11/20 03:13 Dose: 650 mg Documented by: Al Hydroxide/Mg Hydroxide (Mag Hydrox/Al Hydrox/Simeth 30 Ml Udc) 30 ml PO Q6H PRN PRN PRN Reason: Gastric Burning Albuterol Sulfate (Albuterol 2.5 Mg/3 Ml Vial.Neb.) 2.5 mg INHALATION Q2H PRN PRN PRN Reason: SOB/Wheezing Last Admin: 04/09/20 01:40 Dose: 2.5 mg Documented by: Amlodipine Besylate (Amlodipine 10 Mg Tablet) 10 mg PO DAILY [facility] Atorvastatin Calcium (Atorvastatin Calcium 10 Mg Tablet) 10 mg PO QHS [facility] Last Admin: 04/10/20 21:32 Dose: 10 mg Documented by: Calcitriol (Calcitriol 0.25 Mcg Capsule) 0.25 mcg PO DAILY [facility] Last Admin: 04/10/20 09:38 Dose: 0.25 mcg Documented by: Carvedilol (Carvedilol 25 Mg Tablet) 25 mg PO BID [facility] Last Admin: 04/10/20 21:32 Dose: 25 mg Documented by: Doxazosin Mesylate (Doxazosin 4 Mg Tablet) 4 mg PO BID [facility] Last Admin: 04/10/20 21:32 Dose: 4 mg Documented by: Duloxetine HCl (Duloxetine Hcl 30 Mg Capsule) 30 mg PO DAILY [facility] Last Admin: 04/10/20 09:38 Dose: 30 mg Documented by: Furosemide (Furosemide 40 Mg Tablet) 40 mg PO DAILY [facility] Heparin Sodium (Porcine) (Heparin Injection (Vial) 5,000 Unit/Ml Vial) 5,000 unit SC Q8 [facility] Last Admin: 04/11/20 06:43 Dose: 5,000 unit Documented by: Hydralazine HCl (Hydralazine 50 Mg Tablet) 100 mg PO TID [facility] Last Admin: 04/11/20 06:43 Dose: 100 mg Documented by: Hydralazine HCl (Hydralazine 20 Mg/Ml Vial) 5 mg IV Q4H PRN PRN PRN Reason: SBP > 180 Last Admin: 04/09/20 11:26 Dose: 5 mg Documented by: Hydralazine HCl (Hydralazine 20 Mg/Ml Vial) 10 mg IV Q4H PRN PRN PRN Reason: SBP > 160 Hydroxychloroquine Sulfate (Hydroxychloroquine 200 Mg Tablet) 200 mg PO BIDCM [facility] Last Admin: 04/10/20 17:21 Dose: 200 mg Documented by: Insulin Glargine (Insulin Glargine 100 Units/Ml Pen) 38 units SC DAILY [facility] Last Admin: 04/10/20 09:40 Dose: 38 units Documented by: Insulin Human Lispro (Insulin Lispro 100 Unit/Ml Insuln.Pen) 0 unit SC ACHS [facility]; Protocol Last Admin: 04/11/20 06:44 Dose: Not Given Documented by: Iron (Iron Carbonyl 45 Mg Capsule) 45 mg PO DAILY [facility] Last Admin: 04/10/20 09:39 Dose: 45 mg Documented by: Isosorbide Mononitrate (Isosorbide Mononitrate 60 Mg Tablet) 60 mg PO DAILY [facility] Last Admin: 04/10/20 09:40 Dose: 60 mg Documented by: Melatonin (Melatonin 3 Mg Tablet) 3 mg PO QHS PRN PRN PRN Reason: INSOMNIA Ondansetron HCl (Ondansetron 4 Mg/2 Ml Vial) 4 mg IV Q8H PRN PRN PRN Reason: NAUSEA/VOMITING Last Admin: 04/09/20 23:17 Dose: 4 mg Documented by: Pantoprazole Sodium (Pantoprazole Sodium 20 Mg Tablet) 20 mg PO DAILY [facility] Last Admin: 04/10/20 09:38 Dose: 20 mg Documented by: Senna/Docusate Sodium (Senna/Docusate Sodium 1 Tablet) 2 tablet PO BID PRN PRN PRN Reason: Constipation Sodium Chloride (0.9% Saline Lock 10 Ml Syringe) 10 - 40 ml IV UD PRN PRN Reason: SALINE FLUSH Last Admin: 04/10/20 17:23 Dose: 20 ml Documented by: Sodium Chloride (Sodium Chloride 0.65% 1 [place].Btl) 2 spray NASAL TID PRN PRN PRN Reason: NASAL DRYNESS Last Admin: 04/09/20 20:46 Dose: 2 spray Documented by: Tramadol HCl (Tramadol 50 Mg Tablet) 50 mg PO TID PRN PRN Reason: Pain Score 1-10 STROKE Vital Signs/Narrative: Vital Signs Pulse BP BP 04/11/20 07:00 72 04/11/20 06:43 74 170/72 H 04/11/20 06:42 74 170/72 H Medical Necessity - Tobacco Use Smoking Status: Never smoker Tobacco Use: Non-smoker Assessment/Plan All Active Problems (Last Reviewed 04/08/20 @ 19:[address] Ale Aguilar DO) GI bleed (Resolved) Syncope (Acute) Acute respiratory insufficiency (Acute) Acute on chronic diastolic (congestive) heart failure (Resolved) Chest pain (Resolved) HTN (hypertension), malignant (Resolved)
[2020-04-11] MEDS: Carvedilol 25 MG Tablet PO (08:31)
[2020-04-11] MEDS: Doxazosin 4 MG Tablet PO (08:31)
[2020-04-11] MEDS: Hydroxychloroquine 200 MG Tablet PO (08:31)
[2020-04-11] MEDS: Isosorbide Mononitrate 60 MG Tablet PO (08:32)
[2020-04-11] MEDS: DULoxetine Hcl 30 MG Capsule PO (08:32)
[2020-04-11] MEDS: Pantoprazole Sodium 20 MG Tablet PO (08:33)
[2020-04-11] MEDS: Calcitriol 0.25 MCG Capsule PO (08:33)
[2020-04-11] MEDS: amLODIPine 10 MG Tablet PO (09:15)
[2020-04-11] MEDS: Furosemide 40 MG Tablet PO (09:15)
--- NOTE | 2020-04-11 10:30 | CASEMGMT ---
CHANO CORTEZ assessement: Face to Face with patient for initial transition planning/care coordination assessment. CHANO CORTEZ introduced self and role at [facility], pt voices understanding and consents to assessment at this time. Pt is sitting up in chair on room air in no distress at this time. Pt is A/Ox4 at this time and answers all questions appropriately at this time. Care providers, pharmacy, and demographics verified at this time. Presentation: Increasing SOB over last couple weeks Admitting dx: Decompensated HFpEF PCP: Kadi Specialists: Korina, cardio; Jeff, nephro; [facility] body man Preferred Pharmacy: [facility] Insurance: [employer] Prescription Benefit: [employer] Living Will/HPOA: Pt has LW/HPOA and is aware that they are on file at [facility] at this time. Pt's HPOA is , Marcos Hobson. LNOK: Marcos Hboson, ; Silvia Hobson, daughter Living Arrangements: Pt states lives with in 1 story home with laundry in basement. Pt states daughter has been helping with laundry. Pt states is normally independent with ADL's. Transportation: Pt states drives self and states no transportation concerns at this time. DME/HHC: Pt states has the following DME: cane, WW, and shower chair. CM to follow for home oxygen qualification. Pt states no hx of HHC or SNF. Pt provided with list of in-network HHC agencies at this time. Pt states no concerns with going home at time of discharge. Pt is retired. Pt states does not smoke or drink ETOH. Pt states no further concerns/needs at this time. CM to follow for PT/OT evals, home oxygen testing, and for any further discharge planning/needs. Advised pt to ask for CM if any further questions/concerns/needs arise, voices understanding. Pt Goal: Home Plan: Home w/ HHC, possible home oxygen. [place] CHANO CORTEZ
--- NOTE | 2020-04-11 11:07 | CASEMGMT ---
Addendum entered by Elida Best 04/11/20 15:46: Call to Rylee at [facility] and she states they can take pt at this time and she is aware that pt discharging today. Pt is ready for discharge. Jael MADDEN CM Addendum entered by Elida Best 04/11/20 13:20: Pt is agreeable to [facility] SN, PT/OT at this time and had previously been provided in-network list of [facility] agencies. Pt states no preference for [facility] agency at this time. Referral faxed to [facility] at this time and call to [facility] to notify of referral at this time. CM to follow. Jael MADDEN CM Original Note: Per Willie MADDEN, pt does qualify for 2L home oxygen w/ exertion at this time. After list of local in-network DME providers, pt states preference is for [facility] as she has used them recently for DME. Order faxed to [facility] at this time. Call to [facility] to notify of referral and probable d/c today, voices understanding. CM to follow. Jael MADDEN CM
[2020-04-11 11:35] LABS: Bedside Glucose 107 mg/dL (70-110)
--- NOTE | 2020-04-11 11:35 | DCINST_ITS ---
- Discharge Diagnoses Current Active Problems: Current Active and Chronic Problems (Last Reviewed 04/08/20 @ 19:[address] Ale Aguilar, DO) 1. Acute hypoxic respiratory insufficiency secondary to acute on chronic diastolic CHF exacerbation 2. Hypertensive urgency 3. Acute on Chronic Stage IV Kidney Disease 4. 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 Anemia, Fe deficiency/AOCD 6. Hyperlipidemia 7. Obesity 8. Rheumatoid arthritis 9. History of CVA 10. History of moderate renal artery atherosclerosis You will use the following diet at home:: Calorie/Carbohydrate Controlled (specify 1200, 1400, etc) - 1800 ADA, cardiac, low protein/low potassium diet. Recommend 1 additional week of limited fluid intake to 1500 ml daily. Your food should be the consistency of: Regular Your liquids should be the consistency of: Regular/Thin Discharge Activity: - - Continue usage of oxygen with activity as you were noted to drop your oxygenation with activity but maintain appropriate levels with usage of 2L. Please continue until weaned to off by your primary care physician. May resume sexual activity in: 10-14 days Weight Bearing Status: Weight bearing as tolerated Call your doctor if you observe: Fever of 101 or Higher, Inability to urinate, Inability to have a bowel movement, Shortness of breath, Dizziness, Fainting spells, Chest pain, Uncontrolled pain, - - Monitor your weight and if recurrent increase >5 lbs contact your Occupational Therapy Instructor/Primary care physicain to review options. Instructions: What Is Heart Failure?, Heart Failure: Warning Signs of a Flare- Up, Heart Failure: Tracking Your Weight, Heart Failure: Being Active, Taking Medications for Your Heart, ED Chronic Kidney Disease (CKD), ED Diet for Chronic Kidney Disease, Taking Your Blood Pressure, High Blood Pressure and Kidney Disease, Taking Blood Pressure Medications, Traveling with Oxygen, Using Oxygen Safely, Using Oxygen at Home Additional Instructions: Please continue your current medication regimen including the altered Januvia secondary to your worsening renal function. We have maintained you at discharge on lasix 40 mg daily only because of your creatinine rise. Please have repeat basic metabolic panel at follow-up with Dr. Aguilar (nephrology) this coming Saturday at follow-up and review your admission. Please continue your supplemental oxygen until appropriately weaned to off by either your primary care physician or Cardiology. Allergies/Adverse Reactions: Allergies calcium Allergy (Unknown, Verified 04/06/20 13:47) constipation furosemide Allergy (Unknown, Verified 04/06/20 13:47) Constpation amiloride Allergy (Verified 04/06/20 13:47) NEEDS FOLLOW-UP azithromycin [From Zithromax Z-Rickey] Allergy (Verified 04/06/20 13:47) NEEDS FOLLOW-UP bumetanide Allergy (Verified 04/06/20 13:47) Unknown chlorthalidone Allergy (Verified 04/06/20 13:47) Unknown clonidine HCl [From Catapres] Allergy (Verified 04/06/20 13:47) Rash diltiazem Allergy (Verified 04/06/20 13:47) Unknown gemfibrozil Allergy (Verified 04/06/20 13:47) Unknown hydralazine [Hydralazine] Allergy (Verified 04/06/20 13:47) Swelling lisinopril Allergy (Verified 04/06/20 13:47) NEEDS FOLLOW-UP losartan [Losartan] Allergy (Verified 04/06/20 13:47) Unknown minoxidil Allergy (Verified 04/06/20 13:47) Unknown nifedipine Allergy (Verified 04/06/20 13:47) Unknown simvastatin [From Zocor] Allergy (Verified 04/06/20 13:47) Unknown triamterene [From Dyazide] Allergy (Verified 04/06/20 13:47) Unknown valdecoxib [From Bextra] Allergy (Verified 04/06/20 13:47) Unknown verapamil [Verapamil] Allergy (Verified 04/06/20 13:47) Unknown atorvastatin Adverse Reaction (Unknown, Verified 04/06/20 13:47) Swelling and cramping of the legs clonidine [From Catapres] Adverse Reaction (Unknown, Verified 04/06/20 13:47) Unknown esomeprazole [From Nexium] Adverse Reaction (Unknown, Verified 04/06/20 13:47) Swelling metformin [From Glucophage] Adverse Reaction (Unknown, Verified 04/06/20 13:47) Other kidney fxn worsened rosuvastatin [From Crestor] Adverse Reaction (Unknown, Verified 04/06/20 13:47) leg cramps/ swelling atorvastatin calcium [From Lipitor] Adverse Reaction (Verified 04/06/20 13:47) Leg cramps/aching celecoxib [From Celebrex] Adverse Reaction (Verified 04/06/20 13:47) Leg aching hydrochlorothiazide Adverse Reaction (Verified 04/06/20 13:47) Legs aching indapamide Adverse Reaction (Verified 04/06/20 13:47) Other insulin detemir [From Levemir] Adverse Reaction (Verified 04/06/20 13:47) Unknown lansoprazole [From Prevacid] Adverse Reaction (Verified 04/06/20 13:47) Legs aching metformin HCl [From Glucophage] Adverse Reaction (Verified 04/06/20 13:47) Diarrhea pravastatin Adverse Reaction (Verified 04/06/20 13:47) Legs aching rosuvastatin calcium [From Crestor] Adverse Reaction (Verified 04/06/20 13:47) Legs aching Medications to take at Discharge atorvastatin 10 mg tablet 10 mg PO QHS #90 tab 09/29/19 calcitriol 0.25 mcg capsule 0.25 mcg PO DAILY #90 cap 09/29/19 duloxetine 30 mg capsule,delayed release 30 mg PO DAILY #90 cap 09/29/19 Doxazosin Mesylate [Cardura] 4 mg PO BID 10/06/19 Hydroxychloroquine [Plaquenil] 200 mg PO BIDCM 10/06/19 Iron,Carbonyl [Carbonyl Iron] 65 mg PO DAILY 10/06/19 hydralazine 100 mg tablet 100 mg PO TID #270 tab 10/28/19 tramadol 50 mg tablet 50 mg PO TID PRN tab 11/13/19 carvedilol 25 mg tablet 25 mg PO BID #180 tab 01/13/20 Ascorbate Calcium/Bioflavonoid [Jeannette-C 500 mg Tablet] 1 tab PO DAILY 03/09/20 Insulin Glargine [Lantus SoloStar Pen] 38 unit SC DAILY 03/09/20 Isosorbide Mononitrate [Isosorbide Mononitrate ER] 60 mg PO DAILY 03/09/20 coenzyme Q10 100 mg capsule 100 mg PO DAILY cap 03/23/20 furosemide 40 mg tablet 40 mg PO DAILY tab 03/23/20 omeprazole 20 mg capsule,delayed release 20 mg PO DAILY #90 cap 04/04/20 Amlodipine [Norvasc] 5 mg PO DAILY 04/08/20 Amlodipine [Norvasc] 10 mg PO DAILY #30 tab 04/11/20 Sitagliptin Phosphate [Januvia] 25 mg PO DAILY #30 tab 04/11/20 The following prescriptions were given: Sitagliptin Phosphate [Januvia] 25 mg PO DAILY #30 tab Transmission Status: Pending to [id number] Amlodipine [Norvasc] 10 mg PO DAILY #30 tab Transmission Status: Pending to [id number] Primary Care Physician: Hamzah Wallis MD [Primary Care Provider] - Please follow up with your Primary Care Physician in: Follow-up within 2-3 days to review admission. Test Results: Test results from this visit will be discussed in further detail at your follow- up appointment, if applicable. Please Follow Up With: Ivanna Aguilar DO When: Keep current Saturday appt. Have repeat BMP at your visit. Please Follow Up With: Clifford Hui MD When: Please follow-up within 2-4 weeks, may see HANGER OFF. Proposed Discharge Date: 04/11/20
--- NOTE | 2020-04-11 11:44 | PCM.DC.SUM ---
Discharge Date and Diagnosis - Problem List Patient Problems: Active and Suspected Problems (Last Reviewed 04/08/20 @ 19:[address] Ale Aguilar DO) Acute respiratory insufficiency (Acute) Date of Admission: 04/08/20 Date of Discharge: 04/11/20 - Primary Discharge Diagnosis Acute Problems: Active Problems (Last Reviewed 04/08/20 @ 19:[address] Ale Aguilar DO) 1. Acute hypoxic respiratory insufficiency secondary to acute on chronic diastolic CHF exacerbation 2. Hypertensive urgency 3. Acute on Chronic Stage IV Kidney Disease 4. 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 Anemia, Fe deficiency/AOCD 6. Hyperlipidemia 7. Obesity 8. Rheumatoid arthritis 9. History of CVA 10. History of moderate renal artery atherosclerosis - Secondary Discharge Diagnosis Chronic Problems: Chronic Problems (Last Reviewed 04/08/20 @ 19:[address] Ale Aguilar DO) Dyspnea on minimal exertion (Chronic) Type 2 diabetes mellitus (Chronic) Anemia (Chronic) Gastritis determined by endoscopy (Chronic) Acute exacerbation of CHF (congestive heart failure) (Chronic) Anemia in chronic kidney disease (CKD) (Chronic) Chronic diastolic (congestive) heart failure (Chronic) Secondary pulmonary arterial hypertension (Chronic) Essential (primary) hypertension (Chronic) HLD (hyperlipidemia) (Chronic) Chronic renal failure, stage 4 (severe) (Chronic) KHANG (obstructive sleep apnea) (Chronic) Hypersomnolence (Chronic) Bilateral edema of lower extremity (Chronic) Hospital Course and Treatment Discussed case with patient Hat Lining Blocker Dr. Aguilar, no formal consult placed Operations: None Procedures: EKG Summary of Care Provided: The patient is a 74 y/o F w/ PMHx: Chronic diastolic CHF, HTN, HLD, CKD stage IV, Diabetes mellitus type II, Obesity, Chronic anemia/Fe deficiency anemia, Rheumatoid arthritis, Hx CVA, Hx moderate renal artery atherosclerosis who presented to the [facility] ED on 04/08/20 with history of worsening dyspnea, worse with exertion with weight gain, lower extremity swelling, orthopnea prompting ED evaluation. Work-up in the ED included CBC with stable anemia of hemoglobin 8.1, BMP with BUN/creatinine 33/3.11 similar to her prior baseline, troponin 0 0.03 improved from previously with a BNP of 1188, chest x-ray with pulmonary vascular congestion evident. Patient had a recent echocardiogram 03/10/2020 with normal LV size, moderate concentric LVH, EF 65%, stage II diastolic dysfunction, mildly enlarged left atrium. Patient was admitted to the PCU, maintain on telemetry monitoring, continued with IV Lasix diuresis until oral transition once clinically improved, monitor I's and O's, maintained on intake restriction, continued medical therapy, magnesium level obtained and noted to be normal, echocardiogram as noted recently performed thus not repeated. Patient clinically improved and discussed case with patient's wood technologist as recent upcoming planned visit 2 days following plan discharge date. Patient renal function did increase to BUN/creatinine 41/3.63 felt secondary to recent IV Lasix diuresis with resumption at discharge of oral 40 mg once daily per prior. Encourage patient to continue fluid restriction. Given patient clinical improvement and per her report returned to baseline oxygenation assessment was performed prior to her planned discharge with noted 93% on room air at rest however with exertion patient did decrease to 86% but improved to 94% with 2 L supplementation. Patient blood pressures also significantly improved with BP regimen adjustments were continued upon discharge to home. Patient felt appropriate still for discharge to home therefore discharged with continued oxygen supplementation with planned close early follow-up with her PCP as well as cardiology and nephrology with planned repeat renal function assessment with nephrology at her follow-up appointment on 04/13/2020. DAY OF DISCHARGE PROGRESS NOTE: Subjective: Patient without acute event overnight per self and nursing report. Patient feels as though she is returned to her baseline with decreased weight dropped from initial presentation self-reported to 43 pounds however waited at 1830 on the same day to 27 pounds down at discharge to 219 pounds with resolved lower extremity edema as well as resolve dyspnea even with exertion despite oxygen need. Patient denies fever, chills, nausea, emesis, abdominal pain, chest pain or dyspnea. Patient agreeable to discharge to home on oxygen given oxygenation trial as noted. Patient will be discharged with follow-up with primary care physician within 3-5 days in addition to follow-up with cardiology and nephrology. Objective: T 98.6, heart rate 71, BP 135/58, respiratory rate 18, 93% on room air at rest. Physical Examination: General: awake, alert, oriented x 3 and cooperative, seated upright in the PCU bed, NAD. Skin: normal color, turgor, no icterus, cyanosis. HEENT: AT/NC, EOMI, PERRLA, MMM. Lungs: CTA bilaterally, moderate effort, mild decrease BL bases, no rales, ronchi or wheezing; Heart: Regular rate and rhythm; no gallop, rub audible. Abdomen: soft, obese, NTTP, ND, normal BS. Extremities: no cyanosis or clubbing, significantly improved bilateral lower extremity edema, Dameon wraps in place and loosening secondary to resolving edema, no longer pitting. Neurological: patient awake, alert, oriented as noted; cognitive function appears intact upon questioning; pupils equally reactive to light and accomodation; cranial nerves II-XII grossly normal, moving all 4 extremities, strength improved, mildly global decreased, nearing baseline. Psychiatric: affect appears normal, no acute evidence of depressive or anxiety feelings. Assessment and Plan: Please see hospital summary above. Patient Problems: Active and Suspected Problems (Last Reviewed 04/08/20 @ 19:[address] Ale Aguilar, DO) Acute respiratory insufficiency (Acute) - Physical Exam Vitals/I&O's: Vital Signs Temp Pulse Resp BP Pulse Ox 99.2 F H 77 18 165/60 H 93 04/11/20 08:28 04/11/20 08:28 04/11/20 08:28 04/11/20 08:28 04/11/20 10:57 Oxygen Flow Rate (L/min) [ 2 AMBULATION with Oxygen] Oxygen Flow Rate (L/min) [ 0 AMBULATING on Room Air] Oxygen Flow Rate (L/min) [At 0 REST on Room Air] Oxygen Flow Rate (L/min) 2 Oxygen Delivery Method Room Air Weight: 219 lb 9.286 oz Body Mass Index (BMI) 38.9 Finger Stick Blood Glucose 175 Intake and Output for Last 24 Hours 04/09/20 04/10/20 04/11/20 23:59 23:59 23:59 Intake Total 1030 / 1030 819.97 / 819.97 60 / 60 Output Total 3550 / 3550 1600 / 1600 550 / 550 Balance -2520 / -2520 -780.03 / -780.03 -490 / -490 Microbiology Past 72 Hours 04/08/20 15:50 Mucosa - Nose SARS-CoV-2 Antigen (Rapid) - Final Laboratory Results 04/10/20 12:39: POC Glucose 141 H 04/10/20 17:14: POC Glucose 95 04/10/20 21:28: POC Glucose 110 04/11/20 06:00: Sodium 147 H, Potassium 3.5, Chloride 114 H, Carbon Dioxide 25.0, Anion Gap 8, BUN 41 H, Creatinine 3.63 H, Estim Creat Clear Calc 11.92, Est GFR (MDRD) Af Amer 16 L, Est GFR (MDRD) Non-Af 13 L, BUN/Creatinine Ratio 11.3, Glucose 97, Calcium 8.7 04/11/20 06:39: POC Glucose 93 04/11/20 11:04: POC Glucose 107 Current Medications Acetaminophen (Acetaminophen 325 Mg Tablet) 650 mg PO Q6H PRN PRN PRN Reason: Pain Score 1-10/Temp > 100.7 F Last Admin: 04/11/20 03:13 Dose: 650 mg Documented by: Al Hydroxide/Mg Hydroxide (Mag Hydrox/Al Hydrox/Simeth 30 Ml Udc) 30 ml PO Q6H PRN PRN PRN Reason: Gastric Burning Albuterol Sulfate (Albuterol 2.5 Mg/3 Ml Vial.Neb.) 2.5 mg INHALATION Q2H PRN PRN PRN Reason: SOB/Wheezing Last Admin: 04/09/20 01:40 Dose: 2.5 mg Documented by: Amlodipine Besylate (Amlodipine 10 Mg Tablet) 10 mg PO DAILY [facility] Last Admin: 04/11/20 09:15 Dose: 10 mg Documented by: Atorvastatin Calcium (Atorvastatin Calcium 10 Mg Tablet) 10 mg PO QHS [facility] Last Admin: 04/10/20 21:32 Dose: 10 mg Documented by: Calcitriol (Calcitriol 0.25 Mcg Capsule) 0.25 mcg PO DAILY [facility] Last Admin: 04/11/20 08:33 Dose: 0.25 mcg Documented by: Carvedilol (Carvedilol 25 Mg Tablet) 25 mg PO BID [facility] Last Admin: 04/11/20 08:31 Dose: 25 mg Documented by: Doxazosin Mesylate (Doxazosin 4 Mg Tablet) 4 mg PO BID [facility] Last Admin: 04/11/20 08:31 Dose: 4 mg Documented by: Duloxetine HCl (Duloxetine Hcl 30 Mg Capsule) 30 mg PO DAILY [facility] Last Admin: 04/11/20 08:32 Dose: 30 mg Documented by: Furosemide (Furosemide 40 Mg Tablet) 40 mg PO DAILY [facility] Last Admin: 04/11/20 09:15 Dose: 40 mg Documented by: Heparin Sodium (Porcine) (Heparin Injection (Vial) 5,000 Unit/Ml Vial) 5,000 unit SC Q8 [facility] Last Admin: 04/11/20 06:43 Dose: 5,000 unit Documented by: Hydralazine HCl (Hydralazine 50 Mg Tablet) 100 mg PO TID [facility] Last Admin: 04/11/20 06:43 Dose: 100 mg Documented by: Hydralazine HCl (Hydralazine 20 Mg/Ml Vial) 5 mg IV Q4H PRN PRN PRN Reason: SBP > 180 Last Admin: 04/09/20 11:26 Dose: 5 mg Documented by: Hydralazine HCl (Hydralazine 20 Mg/Ml Vial) 10 mg IV Q4H PRN PRN PRN Reason: SBP > 160 Hydroxychloroquine Sulfate (Hydroxychloroquine 200 Mg Tablet) 200 mg PO BIDCM [facility] Last Admin: 04/11/20 08:31 Dose: 200 mg Documented by: Insulin Glargine (Insulin Glargine 100 Units/Ml Pen) 38 units SC DAILY [facility] Last Admin: 04/11/20 08:35 Dose: 38 units Documented by: Insulin Human Lispro (Insulin Lispro 100 Unit/Ml Insuln.Pen) 0 unit SC [facility]; Protocol Last Admin: 04/11/20 11:22 Dose: Not Given Documented by: Iron (Iron Carbonyl 45 Mg Capsule) 45 mg PO DAILY [facility] Last Admin: 04/11/20 08:32 Dose: 45 mg Documented by: Isosorbide Mononitrate (Isosorbide Mononitrate 60 Mg Tablet) 60 mg PO DAILY [facility] Last Admin: 04/11/20 08:32 Dose: 60 mg Documented by: Melatonin (Melatonin 3 Mg Tablet) 3 mg PO QHS PRN PRN PRN Reason: INSOMNIA Nutritional Formula (Lactose Free) (Glucerna Shake 120 Ml Liquid) 120 ml PO TIDCM [facility] Ondansetron HCl (Ondansetron 4 Mg/2 Ml Vial) 4 mg IV Q8H PRN PRN PRN Reason: NAUSEA/VOMITING Last Admin: 04/09/20 23:17 Dose: 4 mg Documented by: Pantoprazole Sodium (Pantoprazole Sodium 20 Mg Tablet) 20 mg PO DAILY [facility] Last Admin: 04/11/20 08:33 Dose: 20 mg Documented by: Senna/Docusate Sodium (Senna/Docusate Sodium 1 Tablet) 2 tablet PO BID PRN PRN PRN Reason: Constipation Sodium Chloride (0.9% Saline Lock 10 Ml Syringe) 10 - 40 ml IV UD PRN PRN Reason: SALINE FLUSH Last Admin: 04/10/20 17:23 Dose: 20 ml Documented by: Sodium Chloride (Sodium Chloride 0.65% 1 [place]y Langley.Btl) 2 spray NASAL TID PRN PRN PRN Reason: NASAL DRYNESS Last Admin: 04/09/20 20:46 Dose: 2 spray Documented by: Tramadol HCl (Tramadol 50 Mg Tablet) 50 mg PO TID PRN PRN Reason: Pain Score 1-10 Discharge Activity: - - Continue usage of oxygen with activity as you were noted to drop your oxygenation with activity but maintain appropriate levels with usage of 2L. Please continue until weaned to off by your primary care physician. May resume sexual activity in: 10-14 days Weight Bearing Status: Weight bearing as tolerated Call your doctor if you observe: Fever of 101 or Higher, Inability to urinate, Inability to have a bowel movement, Shortness of breath, Dizziness, Fainting spells, Chest pain, Uncontrolled pain, - - Monitor your weight and if recurrent increase >5 lbs contact your Dining Room Helper/Primary care physicain to review options. Home Medications: Medications to take at Discharge atorvastatin 10 mg tablet 10 mg PO QHS #90 tab 09/29/19 calcitriol 0.25 mcg capsule 0.25 mcg PO DAILY #90 cap 09/29/19 duloxetine 30 mg capsule,delayed release 30 mg PO DAILY #90 cap 09/29/19 Doxazosin Mesylate [Cardura] 4 mg PO BID 10/06/19 Hydroxychloroquine [Plaquenil] 200 mg PO BIDCM 10/06/19 Iron,Carbonyl [Carbonyl Iron] 65 mg PO DAILY 10/06/19 hydralazine 100 mg tablet 100 mg PO TID #270 tab 10/28/19 tramadol 50 mg tablet 50 mg PO TID PRN tab 11/13/19 carvedilol 25 mg tablet 25 mg PO BID #180 tab 01/13/20 Ascorbate Calcium/Bioflavonoid [Jeannette-C 500 mg Tablet] 1 tab PO DAILY 03/09/20 Insulin Glargine [Lantus SoloStar Pen] 38 unit SC DAILY 03/09/20 Isosorbide Mononitrate [Isosorbide Mononitrate ER] 60 mg PO DAILY 03/09/20 coenzyme Q10 100 mg capsule 100 mg PO DAILY cap 03/23/20 furosemide 40 mg tablet 40 mg PO DAILY tab 03/23/20 omeprazole 20 mg capsule,delayed release 20 mg PO DAILY #90 cap 04/04/20 Amlodipine [Norvasc] 10 mg PO DAILY #30 tab 04/11/20 Sitagliptin Phosphate [Januvia] 25 mg PO DAILY #30 tab 04/11/20 Following Prescriptions Were Given to Patient: Sitagliptin Phosphate [Januvia] 25 mg PO DAILY #30 tab Transmission Status: Received by [id number] Amlodipine [Norvasc] 10 mg PO DAILY #30 tab Transmission Status: Received by [id number] Primary Care Physician: Hamzah Wallis MD [Primary Care Provider] - Please follow up with your Primary Care Physician in: Follow-up within 2-3 days to review admission. Please Follow Up With: Ivanna Aguilar DO When: Keep current Saturday appt. Have repeat BMP at your visit. Please Follow Up With: Clifford Hui MD When: Please follow-up within 2-4 weeks, may see ART OBJECTS SALESPERSON. Patient Instructions: What Is Heart Failure?, Heart Failure: Warning Signs of a Flare-Up, Heart Failure: Tracking Your Weight, Heart Failure: Being Active, Traveling with Oxygen, Using Oxygen Safely, Using Oxygen at Home, Taking Medications for Your Heart, Taking Your Blood Pressure, High Blood Pressure and Kidney Disease, Taking Blood Pressure Medications, ED Chronic Kidney Disease (CKD), ED Diet for Chronic Kidney Disease Disposition: Home with Home Health Minutes spent on discharge:: 35 Patient Condition:: Fair Medical Necessity - Tobacco Use Smoking Status: Never smoker Tobacco Use: Non-smoker Meaningful Use Info Meaningful Use Diagnoses (Choose all that apply): CHF - CHF DAMEON/ARB ordered at discharge?: No Reason DAMEON/ARB not ordered?: Worsening renal function Documented LVEF (%): 65 Inpatient E&M: 62156 Disch Hosp
[2020-04-11] MEDS: Ondansetron 4 MG/2 ML Vial IV (12:01)
[2020-04-11] MEDS: Glucerna Shake 120 ML LIQUID PO (12:06)
--- NOTE | 2020-04-11 12:10 | PHA.DC.MC ---
Pharmacy Service has performed discharge medication reconciliation and counseling for this patient. The patient was counseled on the following discharge medications and changes in medications for homegoing were reviewed. 1. NORVASC 5mg --> 10MG DOSE CHANGE 2. JANUVIA 100MG --> 25MG DOSE CHANGE The Reason for Use, instructions for use, and potential side effects were reviewed for all new medications. The patient's questions regarding all of their medications were answered. The patient was able to verbally demonstrate an understanding of their discharge medications. Home Medications atorvastatin 10 mg tablet 10 mg PO QHS #90 tab 09/29/19 calcitriol 0.25 mcg capsule 0.25 mcg PO DAILY #90 cap 09/29/19 duloxetine 30 mg capsule,delayed release 30 mg PO DAILY #90 cap 09/29/19 Doxazosin Mesylate [Cardura] 4 mg PO BID 10/06/19 Hydroxychloroquine [Plaquenil] 200 mg PO BIDCM 10/06/19 Iron,Carbonyl [Carbonyl Iron] 65 mg PO DAILY 10/06/19 hydralazine 100 mg tablet 100 mg PO TID #270 tab 10/28/19 tramadol 50 mg tablet 50 mg PO TID PRN tab 11/13/19 carvedilol 25 mg tablet 25 mg PO BID #180 tab 01/13/20 Ascorbate Calcium/Bioflavonoid [Jeannette-C 500 mg Tablet] 1 tab PO DAILY 03/09/20 Insulin Glargine [Lantus SoloStar Pen] 38 unit SC DAILY 03/09/20 Isosorbide Mononitrate [Isosorbide Mononitrate ER] 60 mg PO DAILY 03/09/20 coenzyme Q10 100 mg capsule 100 mg PO DAILY cap 03/23/20 furosemide 40 mg tablet 40 mg PO DAILY tab 03/23/20 omeprazole 20 mg capsule,delayed release 20 mg PO DAILY #90 cap 04/04/20 Amlodipine [Norvasc] 10 mg PO DAILY #30 tab 04/11/20 Sitagliptin Phosphate [Januvia] 25 mg PO DAILY #30 tab 04/11/20 The patient's discharge medication list was reviewed for discrepancies and discrepancies were resolved.
--- NOTE | 2020-04-12 11:48 | CASEMGMT ---
[facility] PHONE CALL DC DATE: 04/11/20 DC Disposition: Home Diagnosis on Discharge: LACE/STRATA: 01/04 Transition of care to [facility]. Call to Starr @ [facility]. They have contacted patient and start of care is tomorrow. Beverly NELSON RN AC
== END 2020-04-11 16:44 | disposition home health service (06) | DRG 291 ==
LOC: ED 17:34 → PCU 18:50
PROVIDERS: Family Medicine; Admitting Provider Internal Medicine; Emergency Provider Emergency Medicine; PCP Internal Medicine; Visit Provider Family Medicine
DX: I13.0 Hypertensive heart and chronic kidney disease with heart failure and stage 1 through stage 4 chronic kidney disease, or unspecified chronic kidney disease (principal); I50.33 Acute on chronic diastolic (congestive) heart failure; N18.4 Chronic kidney disease, stage 4 (severe); E87.2 Acidosis; Z68.41 Body mass index [BMI] 40.0-44.9, adult; E11.22 Type 2 diabetes mellitus with diabetic chronic kidney disease; I16.0 Hypertensive urgency; E87.8 Other disorders of electrolyte and fluid balance, not elsewhere classified; D63.1 Anemia in chronic kidney disease; D69.6 Thrombocytopenia, unspecified; F32.9 Major depressive disorder, single episode, unspecified; K21.9 Gastro-esophageal reflux disease without esophagitis; G47.33 Obstructive sleep apnea (adult) (pediatric); E66.01 Morbid (severe) obesity due to excess calories; M06.9 Rheumatoid arthritis, unspecified; Z79.4 Long term (current) use of insulin; Z91.19 Patient's noncompliance with other medical treatment and regimen; E78.5 Hyperlipidemia, unspecified; F41.9 Anxiety disorder, unspecified; D50.9 Iron deficiency anemia, unspecified; Z86.73 Personal history of transient ischemic attack (TIA), and cerebral infarction without residual deficits; Z66 Do not resuscitate; Z79.899 Other long term (current) drug therapy; Z82.3 Family history of stroke; Z82.49 Family history of ischemic heart disease and other diseases of the circulatory system; Z83.3 Family history of diabetes mellitus; Z90.49 Acquired absence of other specified parts of digestive tract; I70.1 Atherosclerosis of renal artery; I27.21 Secondary pulmonary arterial hypertension; R09.89 Other specified symptoms and signs involving the circulatory and respiratory systems; R06.89 Other abnormalities of breathing
CPT/HCPCS: 36415; 71045; 80048; 80053; 82728; 82962; 83540; 83550; 83615; 83735; 83880; 83970; 84100; 84484; 85025; 87426; 93005; 94640; 97110; 97116; 97162; 97530; 99251; 99285; A4216; G0463; J1940; J2405

== ENCOUNTER → 2020-04-20 12:41 | Outpatient (CLI) | payer MEDICARE, SELFPAY ==
[2020-04-08 18:30] VITALS: BMI 38.9
--- NOTE | 2020-04-20 12:50 | VDUE_ITS ---
Reason For Study: CKD stage 4 Right Arm Left Arm Right Cephalic Vein at the wrist measures Left Cephalic Vein at the wrist measures 0.16 x 0.16 cm. 0.13 x 0.15 cm. Right Cephalic Vein in the forearm measures Left Cephalic Vein in the forearm measures 0.15 x 0.15 cm. 0.20 x 0.20 cm. Right Cephalic Vein below antecub measures Left Cephalic Vein below antecub measures 0.18 x 0.18 cm. 0.24 x 0.24 cm. Right Cephalic Vein above antecub measures Left Cephalic Vein above antecub measures 0.14 x 0.13 cm. 0.18 x 0.16 cm. Right Cephalic Vein mid bicep measures 0.09 Left Cephalic Vein at mid bicep measures x 0.10 cm. 0.13 x 0.13 cm. Right Cephalic Vein at the shoulder measures Left Cephalic Vein at the shoulder measures 0.13 x 0.14 cm. 0.12 x 0.13 cm. Right Basilic Vein at the origin measures Basilic vein at origin measures 0.41 x 0.42 0.36 x 0.35 cm. cm. Right Basilic Vein mid bicep measures 0.28 x Basilic vein at bicep measures 0.37 x 0.37 0.28 cm. cm. Right Basilic Vein above antecub measures Basilic vein above antecub measures 0.40 x 0.37 x 0.38 cm. 0.39 cm. Right Brachial artery measures 0.35 x 0.35 Left Brachial artery measures 0.38 x 0.39 cm cm with a velocity of 190.6 cm/sec. with a velocity of 134.4 cm/sec. Right Radial artery measures 0.24 x 0.22 cm Left Radial artery measures 0.26 x 0.27 cm with a velocity of 88.8 cm/sec. with a velocity of 110.6 cm/sec. Interpretation Summary Patent and compressible bilateral upper extremity cephalic and basilic veins as noted. It is of note that bilateral cephalic veins appeared generally small. Bilateral upper arm basilic veins would appear to be adequate for fistula creation. Bilateral brachial and radial arteries of normal diameter and flow Ordering Physician: Ivanna Aguilar Referring Physician: Hamzah Wallis Performed By: Elida Aggarwal RVT ?
== END ==
PROVIDERS: PCP Internal Medicine; Referring Provider Internal Medicine Nephrology; Visit Provider Internal Medicine Nephrology
DX: Z01.818 Encounter for other preprocedural examination (principal); N18.4 Chronic kidney disease, stage 4 (severe)
CPT/HCPCS: 93970

== ENCOUNTER 2020-05-06 05:25 | Day surgery (SDC) | payer MEDICARE, SELFPAY ==
[2020-04-26 13:32] VITALS: BMI 36.6
[2020-04-29 14:51] VITALS: BMI 36.3
--- NOTE | 2020-05-04 11:46 | EKG12_ITS ---
Test Reason : PREOP Blood Pressure : / mmHG Vent. Rate : 069 BPM Atrial Rate : 069 BPM P-R Int : 130 ms QRS Dur : 100 ms QT Int : 432 ms P-R-T Axes : 059 017 091 degrees QTc Int : 462 ms Normal sinus rhythm Nonspecific ST and T wave abnormality Abnormal ECG Confirmed by SUMAN BALTAZAR, BARRY ([id number]), senior technical editor SHRUTHI MCFARLANE ([id number]) on 05/05/2020 1:07:17 PM Referred By: Aaron Devi Confirmed By:BARRY WILL MD
[2020-05-04 13:29] LABS: Hematocrit 22.9 % (37-47); Hemoglobin 7.3 g/dL (12.0-15.0); Mean Corp Hgb Conc 31.9 g/dL (32-36); Mean Corpuscular Hgb 29.8 pg (27.0-32.0); Mean Corpuscular Volume 93.5 fL (81-99); Mean Platelet Vol. 11.2 fl (6.2-12.0); Platelet Count 119 K/mm3 (150-450); RBC Distribution Width SD 51.2 fl (35.1-43.9); Red Blood Count 2.45 M/mm3 (4.2-5.4); White Blood Count 8.3 K/mm3 (4.4-11.0)
[2020-05-04 13:52] LABS: Anion Gap 9 (5-15); BUN 62 mg/dL (7-18); BUN/Creat Ratio 15.5 RATIO (10-20); Calcium,Total 9.1 mg/dL (8.5-10.1); Chloride 116 mmol/L (98-107); Creatinine, Serum 4.01 mg/dL (0.55-1.02); EST Glomerular Filtration Rate 12 mL/min (>60); Est Glom Filt Rate - Afr Amer 14 mL/min (>60); Glucose 108 mg/dL (74-106); Potassium 3.8 mmol/L (3.5-5.1); Sodium Level 145 mmol/L (136-145)
[2020-05-06] VITALS (7 sets, daily range): BP systolic 99–195; BP diastolic 47–73; PULSE 63–68; RESP 16–18; TEMP 36.2–37; O2SAT 92–97; BMI 36.8
--- NOTE | 2020-05-06 06:07 | PCM.HP.BLA ---
Problem List (1) Anemia in chronic kidney disease (CKD) Status: Chronic Qualifiers: Chronic kidney disease stage: stage 4 (severe) Qualified Code(s): N18.4 - Chronic kidney disease, stage 4 (severe); D63.1 - Anemia in chronic kidney disease History and Physical Date of Admission: 05/06/20 Intake Visit Reasons: FISTULA, VM 04/13 Chief Complaint: discuss fistula Gastroenterology Physician Required: No Is patient in pain?: No Allergies calcium Allergy (Unknown, Verified 04/26/20 13:32) constipation furosemide Allergy (Unknown, Verified 04/26/20 13:32) Constpation amiloride Allergy (Verified 04/26/20 13:32) NEEDS FOLLOW-UP azithromycin [From Zithromax Z-Rickey] Allergy (Verified 04/26/20 13:32) NEEDS FOLLOW-UP bumetanide Allergy (Verified 04/26/20 13:32) Unknown chlorthalidone Allergy (Verified 04/26/20 13:32) Unknown clonidine HCl [From Catapres] Allergy (Verified 04/26/20 13:32) Rash diltiazem Allergy (Verified 04/26/20 13:32) Unknown gemfibrozil Allergy (Verified 04/26/20 13:32) Unknown hydralazine [Hydralazine] Allergy (Verified 04/26/20 13:32) Swelling lisinopril Allergy (Verified 04/26/20 13:32) NEEDS FOLLOW-UP losartan [Losartan] Allergy (Verified 04/26/20 13:32) Unknown minoxidil Allergy (Verified 04/26/20 13:32) Unknown nifedipine Allergy (Verified 04/26/20 13:32) Unknown simvastatin [From Zocor] Allergy (Verified 04/26/20 13:32) Unknown triamterene [From Dyazide] Allergy (Verified 04/26/20 13:32) Unknown valdecoxib [From Bextra] Allergy (Verified 04/26/20 13:32) Unknown verapamil [Verapamil] Allergy (Verified 04/26/20 13:32) Unknown atorvastatin Adverse Reaction (Unknown, Verified 04/26/20 13:32) Swelling clonidine [From Catapres] Adverse Reaction (Unknown, Verified 04/26/20 13:32) Unknown esomeprazole [From Nexium] Adverse Reaction (Unknown, Verified 04/26/20 13:32) Swelling metformin [From Glucophage] Adverse Reaction (Unknown, Verified 04/26/20 13:32) Other rosuvastatin [From Crestor] Adverse Reaction (Unknown, Verified 04/26/20 13:32) leg cramps/ swelling atorvastatin calcium [From Lipitor] Adverse Reaction (Verified 04/26/20 13:32) Leg cramps/aching celecoxib [From Celebrex] Adverse Reaction (Verified 04/26/20 13:32) Leg aching hydrochlorothiazide Adverse Reaction (Verified 04/26/20 13:32) Legs aching indapamide Adverse Reaction (Verified 04/26/20 13:32) Other insulin detemir [From Levemir] Adverse Reaction (Verified 04/26/20 13:32) Unknown lansoprazole [From Prevacid] Adverse Reaction (Verified 04/26/20 13:32) Legs aching metformin HCl [From Glucophage] Adverse Reaction (Verified 04/26/20 13:32) Diarrhea pravastatin Adverse Reaction (Verified 04/26/20 13:32) Legs aching rosuvastatin calcium [From Crestor] Adverse Reaction (Verified 04/26/20 13:32) Legs aching Medications atorvastatin 10 mg tablet 10 mg PO QHS #90 tab 09/29/19 [Rx Confirmed 04/26/20] calcitriol 0.25 mcg capsule 0.25 mcg PO DAILY #90 cap 09/29/19 [Rx Confirmed 04/26/20] duloxetine 30 mg capsule,delayed release 30 mg PO DAILY #90 cap 09/29/19 [Rx Confirmed 04/26/20] Doxazosin Mesylate [Cardura] 4 mg PO BID 10/06/19 [History Confirmed 04/26/20] Hydroxychloroquine [Plaquenil] 200 mg PO BIDCM 10/06/19 [History Confirmed 04/26/20] Iron,Carbonyl [Carbonyl Iron] 65 mg PO DAILY 10/06/19 [History Confirmed 04/26/20] hydralazine 100 mg tablet 100 mg PO TID #270 tab 10/28/19 [Rx Confirmed 04/26/20] tramadol 50 mg tablet 50 mg PO TID PRN tab 11/13/19 [History Confirmed 04/26/20] carvedilol 25 mg tablet 25 mg PO BID #180 tab 01/13/20 [Rx Confirmed 04/26/20] Ascorbate Calcium/Bioflavonoid [Jeannette-C 500 mg Tablet] 1 tab PO DAILY 03/09/20 [History Confirmed 04/26/20] Insulin Glargine [Lantus SoloStar Pen] 38 unit SC DAILY 03/09/20 [History Confirmed 04/26/20] Isosorbide Mononitrate [Isosorbide Mononitrate ER] 60 mg PO DAILY 03/09/20 [History Confirmed 04/26/20] coenzyme Q10 100 mg capsule 100 mg PO DAILY cap 03/23/20 [History Confirmed 04/26/20] omeprazole 20 mg capsule,delayed release 20 mg PO DAILY #90 cap 04/04/20 [Rx Confirmed 04/26/20] Amlodipine [Norvasc] 10 mg PO DAILY #30 tab 04/11/20 [Rx Confirmed 04/26/20] Sitagliptin Phosphate [Januvia] 25 mg PO DAILY #30 tab 04/11/20 [Rx Confirmed 04/26/20] furosemide 40 mg tablet 40 mg PO DAILY #90 tab 04/13/20 [Rx Confirmed 04/26/20] PFS Medical History Chronic diastolic (congestive) heart failure (Chronic) Secondary pulmonary arterial hypertension (Chronic) Essential (primary) hypertension (Chronic) HLD (hyperlipidemia) (Chronic) Chronic renal failure, stage 4 (severe) (Chronic) KHANG (obstructive sleep apnea) (Chronic) Hypersomnolence (Chronic) Bilateral edema of lower extremity (Chronic) Diverticular disease (Acute) Hyperkalemia (Acute) Hyperparathyroidism (Acute) Anemia of chronic disease (Chronic) Chronic osteoarthritis (Chronic) GERD (gastroesophageal reflux disease) (Chronic) History of diverticulosis (Chronic) Left carotid bruit (Chronic) Morbid obesity (Chronic) Neuropathy (Chronic) Psoriasis (Chronic) Renal artery atherosclerosis (Chronic) Rheumatoid arthritis (Chronic) Systolic hypertension with cerebrovascular disease (Chronic) Type 2 diabetes mellitus treated with insulin (Chronic) Acute on chronic diastolic (congestive) heart failure (Resolved) HTN (hypertension), malignant (Resolved) Hx of mini strokes (Resolved) Uncontrolled hypertension (Inactive) Surgical History History of appendectomy (Resolved) S/P breast lumpectomy (Resolved) gallbladder removed (Resolved) surgery on finger due to infection (Resolved) Family History Mother Diabetes Heart disease CVA (cerebral vascular accident) Myocardial infarction had IA in 70s Father Cancer lung, passed at 70 Brother Kidney disease of renal failure at 65. Sister Diabetes Hypertension Mother Diabetes Heart disease CVA (cerebral vascular accident) Myocardial infarction age 70s Father Cancer lung CA Sister Hypertension Diabetes Social History (Updated 04/26/20 @ 13:[address] Aaron Devi MD) Smoking Status: Never smoker HPI HPI HPI: KAYLI PELAEZ, is a 74 F who presents to the office today forSurgical consultation regarding stage IV chronic renal sufficiency and need for a arteriovenous hemodialysis fistula. The patient is referred by Dr. Ivanna Aguilar and a written copy my surgical consult recommendations will return to her. The patient states that she has been hospitalized twice this past year. Most recently she was in congestive heart failure. She had retained a significant amount of fluid. She states that she is now improving. She is doing physical therapy to try to regain some of her strength. As noted below on April 20, 2020 she had bilateral upper extremity vein mapping. This demonstrates that bilateral cephalic veins are quite small likely due to repetitive accessing during her hospitalizations. Her bilateral upper arm basilic veins however are adequate. As of April 08, 2020 Covid testing was negative As of April 11, 2020 BUN was 41 with a creatinine of 3.63 and an estimated GFR of 13 The patient is right arm dominant. She was brought in on a wheelchair however she is able to get up on the exam table with minimal assist. She claims that previously she had some wheezingWhen she was fluid overloaded but that is resolved. She denies any chest pain. She states that she does not recall having had coronary catheterization or coronary stents. She is not on any anticoagulants. She previously was on a low-dose aspirin 81 mg daily. That was in the past. She thinks that she just simply stopped taking it. [facility] [place] [address] Saphenous Vein Mapping, Bilat 04/20/20 1258 MR#: [id number] Name: KAYLI PELAEZ [facility] #:[id number] : 1945 74From: Aaron Devi MD Attending Dr: Dr. Ivanna Aguilar, DOStatus: REG CLI Ordering Dr: Ivanna Aguilar DODate: 04/20/20 Location:CVSSex:FC Admitted: Reason For Study: CKD stage 4 Right Arm Left Arm Right Cephalic Vein at the wrist measures Left Cephalic Vein at the wrist measures 0.16 x 0.16 cm. 0.13 x 0.15 cm. Right Cephalic Vein in the forearm measures Left Cephalic Vein in the forearm measures 0.15 x 0.15 cm. 0.20 x 0.20 cm. Right Cephalic Vein below antecub measures Left Cephalic Vein below antecub measures 0.18 x 0.18 cm. 0.24 x 0.24 cm. Right Cephalic Vein above antecub measures Left Cephalic Vein above antecub measures 0.14 x 0.13 cm. 0.18 x 0.16 cm. Right Cephalic Vein mid bicep measures 0.09 Left Cephalic Vein at mid bicep measures x 0.10 cm. 0.13 x 0.13 cm. Right Cephalic Vein at the shoulder measures Left Cephalic Vein at the shoulder measures 0.13 x 0.14 cm. 0.12 x 0.13 cm. Right Basilic Vein at the origin measures Basilic vein at origin measures 0.41 x 0.42 0.36 x 0.35 cm. cm. Right Basilic Vein mid bicep measures 0.28 x Basilic vein at bicep measures 0.37 x 0.37 0.28 cm. cm. Right Basilic Vein above antecub measures Basilic vein above antecub measures 0.40 x 0.37 x 0.38 cm. 0.39 cm. Right Brachial artery measures 0.35 x 0.35 Left Brachial artery measures 0.38 x 0.39 cm cm with a velocity of 190.6 cm/sec. with a velocity of 134.4 cm/sec. Right Radial artery measures 0.24 x 0.22 cm Left Radial artery measures 0.26 x 0.27 cm with a velocity of 88.8 cm/sec. with a velocity of 110.6 cm/sec. Interpretation Summary Patent and compressible bilateral upper extremity cephalic and basilic veins as noted. It is of note that bilateral cephalic veins appeared generally small. Bilateral upper arm basilic veins would appear to be adequate for fistula creation. Bilateral brachial and radial arteries of normal diameter and flow Ordering Physician: Ivanna Aguilar Referring Physician: Hamzah Wallis Performed By: Elida Aggarwal RVT ? 04/20/20 1610 Date Aaron Devi MD HPI HPI HPI: KAYLI PELAEZ, is a 74 F who presents to the office today for ROS General General: Yes fatigue; no weight change, appetite, colon cancer, breast cancer or weakness HEENT HEENT: No difficulty swallowing, eye injury, eye surgery, swollen glands or hoarseness Endo Endocrine: Yes diabetes mellitus; no thyroid disease, thyroid cancer, Hair loss, heat intolerance or cold intolerance Skin Skin: No rash or changing moles Breast Breast: No left breast lump, right breast lump, nipple discharge, breast pain, abnormal mammogram, abnormal US or breast enlargement Musc Musculoskeletal: Yes arthritis and rheumatoid arthritis; no back problems, gout or joint pain Cardio Cardiovascular: Yes heart disease and high blood pressure; no murmur, pacemaker, atrial fibrillation, heart attack, heart stent, palpitations, shortness of breat with exertion or chest pain Psych Psychiatric: No depression, anxiety or hearing voices Resp Respiratory: Yes shortness of breath, Yes sleep apnea, No cough, No COPD, No asthma, No emphysema, No wheezing Gastro Gastrointestinal: No abdominal pain, No nausea or vomiting, Yes diarrhea, Yes constipation, No blood in stool, Yes acid reflux, No hemorrhoids, No ulcers, No gallbladder problem, No black,tarry stools Mert Hematologic: No blood thinners, No blood disorders, No bleeding, Yes anemia, No blood clots Neuro Neurologic: No system reviewed and no additional complaints, except as docu, No as per HPI, No abnormal walking, No abnormal hearing, No abnormal movements, No abnormal speech, No behavioral changes, No burning sensations, No confusion, No seizure-like activity, No unsteadiness, No dizziness, No localized weakness, No frequent falls, No headache(s), No lack of coordination, No loss of vision, No memory loss, No numbness, No other visual disturbances, No radiating pain, No restless legs, No sensory deficit, No fainting, No tingling, No tremor(s), No weakness, No other Exam Const General: cooperative, comfortable, no acute distress Nutritional Appearance: obese Orientation: alert, awake HENHI Head: normal to inspection Eyes General: appearance normal, both eyes and all related structures Chest Chest palpation & inspection: normal inspection of the chest Breast Palpation: No nipple discharge Resp Other: Slightly diminished respiratory excursion, clear however throughout Cardio Rate: regular rate Rhythm: regular rhythm Heart Sounds: no murmurs GI Palpation: soft Auscultation: normal bowel sounds Other: Notably overweight,, Nontender Skin General: no rashes or lesions noted Extrem Other: Mild bilateral extremity nonpitting edema I performed ultrasound inspection of the left upper extremity. The basilic vein was noted and its patent and compressible although deeply placed. There appears to be an antecubital communication that directly overlies the brachial artery Psych Affect: normal affect Assessment & Plan Problems 1. Chronic renal failure, stage 4 (severe) N18.4 Plan I have recommended to the patient that she initiate a 81 mg aspirin daily and take that every other day. This will facilitate maintenance of her arteriovenous hemodialysis fistula. I have offered her a left upper arm stage I brachial to basilic arteriovenous hemodialysis fistula creation. As noted the basilic vein/antecubital component passes directly over the antecubital space and brachial artery. I believe that stage I could be achieved rather expeditiously. I have discussed with the patient and her present the technique, benefit, risks, alternatives. The patient is very much aware that a future stage II transposition will be required. She has had an opportunity to ask and have questions answered. She is interested in pursuing creation of the fistula knowing that it could take up to 3 months for full maturation. She is aware that additional intervention may Be required to help with maturation or maintain patency. Very much appreciate the kind opportunity of assisting with his surgical care Copy: Dr. Ivanna Aguilar and Dr Hamzah Devi M.D., F.A.C.S. Coding Level of Care Code 61831 Diagnoses Chronic renal failure, stage 4 (severe) N18.4 I have re-examined the patient. There are no clinical changes since date of exam. Procedure Criteria Procedure Type: Elective COVID Risk Discussion: The surgeon/proceduralist and patient have discussed in detail the risk of exposure to and/or potential harm posed by the COVID-19 virus with having a surgery/procedure at this time versus the risk of delaying the surgery/procedure. It is not possible to know either the risk of delaying the surgery or procedure or chance of getting an infection with perfect accuracy, but a joint decision was made between the patient and the surgeon/proceduralist to proceed at this time with the scheduled surgery/procedure as indicated on the consent form.
--- NOTE | 2020-05-06 06:08 | DCINST_ITS ---
Discharge Diet: Renal Diet Discharge Activity: May Not Drive - for 2-3 days or while taking narcotic pain medications., May Shower, May Take a Tub Bath - in 5 days. Lifting Restrictions: 5 pounds Keep extremity elevated above heart level: - - Keep arm elevated above the heart level for 3 days. Additional Activity Instructions:: Exercise hand vigorously with a stress ball. Call your doctor if your incision/area has: Continuous Slow Oozing, Sudden Increased Bleeding - apply pressure and call your doctor., Increased Pain/ Swelling, Increased Redness, Foul Smelling Discharge Call your doctor if you observe: Fever of 101 or Higher Suture Line Care: Avoid Pulling/Pushing, Avoid Pinching/Bending Cleanse incision/area with: Keep Dressing Clean & Dry Additional Dressing/Incision Instructions:: Change or remove dressing in 1-2 days. May protect with a gauze bandaid. Allergies/Adverse Reactions: Allergies calcium Allergy (Unknown, Verified 05/06/20 05:59) constipation furosemide Allergy (Unknown, Verified 05/06/20 05:59) Constpation amiloride Allergy (Verified 05/06/20 05:59) NEEDS FOLLOW-UP azithromycin [From Zithromax Z-Rickey] Allergy (Verified 05/06/20 05:59) NEEDS FOLLOW-UP bumetanide Allergy (Verified 05/06/20 05:59) Unknown chlorthalidone Allergy (Verified 05/06/20 05:59) Unknown clonidine HCl [From Catapres] Allergy (Verified 05/06/20 05:59) Rash diltiazem Allergy (Verified 05/06/20 05:59) Unknown gemfibrozil Allergy (Verified 05/06/20 05:59) Unknown hydralazine [Hydralazine] Allergy (Verified 05/06/20 05:59) Swelling lisinopril Allergy (Verified 05/06/20 05:59) NEEDS FOLLOW-UP losartan [Losartan] Allergy (Verified 05/06/20 05:59) Unknown minoxidil Allergy (Verified 05/06/20 05:59) Unknown nifedipine Allergy (Verified 05/06/20 05:59) Unknown simvastatin [From Zocor] Allergy (Verified 05/06/20 05:59) Unknown triamterene [From Dyazide] Allergy (Verified 05/06/20 05:59) Unknown valdecoxib [From Bextra] Allergy (Verified 03/05/21 05:59) Unknown verapamil [Verapamil] Allergy (Verified 05/06/20 05:59) Unknown atorvastatin Adverse Reaction (Unknown, Verified 05/06/20 05:59) Swelling and cramping of the legs clonidine [From Catapres] Adverse Reaction (Unknown, Verified 05/06/20 05:59) Unknown esomeprazole [From Nexium] Adverse Reaction (Unknown, Verified 05/06/20 05:59) Swelling metformin [From Glucophage] Adverse Reaction (Unknown, Verified 05/06/20 05:59) Other kidney fxn worsened rosuvastatin [From Crestor] Adverse Reaction (Unknown, Verified 05/06/20 05:59) leg cramps/ swelling atorvastatin calcium [From Lipitor] Adverse Reaction (Verified 05/06/20 05:59) Leg cramps/aching celecoxib [From Celebrex] Adverse Reaction (Verified 05/06/20 05:59) Leg aching hydrochlorothiazide Adverse Reaction (Verified 05/06/20 05:59) Legs aching indapamide Adverse Reaction (Verified 05/06/20 05:59) Other insulin detemir [From Levemir] Adverse Reaction (Verified 05/06/20 05:59) Unknown lansoprazole [From Prevacid] Adverse Reaction (Verified 05/06/20 05:59) Legs aching metformin HCl [From Glucophage] Adverse Reaction (Verified 05/06/20 05:59) Diarrhea pravastatin Adverse Reaction (Verified 05/06/20 05:59) Legs aching rosuvastatin calcium [From Crestor] Adverse Reaction (Verified 05/06/20 05:59) Legs aching Medications to take at Discharge atorvastatin 10 mg tablet 10 mg PO QHS #90 tab 09/29/19 calcitriol 0.25 mcg capsule 0.25 mcg PO DAILY #90 cap 09/29/19 duloxetine 30 mg capsule,delayed release 30 mg PO DAILY #90 cap 09/29/19 Doxazosin Mesylate [Cardura] 4 mg PO BID 10/06/19 Hydroxychloroquine [Plaquenil] 200 mg PO BIDCM 10/06/19 Iron,Carbonyl [Carbonyl Iron] 65 mg PO DAILY 10/06/19 hydralazine 100 mg tablet 100 mg PO TID #270 tab 10/28/19 tramadol 50 mg tablet 50 mg PO DAILY tab 11/13/19 carvedilol 25 mg tablet 25 mg PO BID #180 tab 01/13/20 Insulin Glargine [Lantus SoloStar Pen] 38 unit SC DAILY 03/09/20 Isosorbide Mononitrate [Isosorbide Mononitrate ER] 60 mg PO LUNCH 03/09/20 coenzyme Q10 100 mg capsule 50 mg PO DAILY cap 03/23/20 omeprazole 20 mg capsule,delayed release 20 mg PO DAILY #90 cap 04/04/20 Sitagliptin Phosphate [Januvia] 25 mg PO DAILY #30 tab 04/11/20 furosemide 40 mg tablet 40 mg PO DAILY #90 tab 04/13/20 amoxicillin 875 mg tablet 875 tab PO BID 04/29/20 Amlodipine [Norvasc] 10 mg PO LUNCH 05/03/20 Ascorbate Calcium/Bioflavonoid [Jeannette-C 500 mg Tablet] 1 ea PO DAILY 05/03/20 Aspirin [Adult Low Dose Aspirin EC] 81 mg PO DAILY 05/03/20 Cyanocobalamin [Vitamin B12] 2,000 mcg PO DAILY@0800 05/03/20 Valsartan 80 mg PO QHS 05/03/20 Primary Care Physician: Hamzah Wallis MD [Primary Care Provider] - Test Results: Test results from this visit will be discussed in further detail at your follow- up appointment, if applicable. Please Follow Up With: Aaron Devi MD - [phone] When: Call to make an appointment for suture removal and follow up in 10 days
[2020-05-06 06:30] LABS: Bedside Glucose 171 mg/dL (70-110)
[2020-05-06] MEDS: Bupivacaine Mpf 0.5% 30 ML VIAL (07:49)
[2020-05-06] MEDS: Heparin Injection (Vial) 5,000 UNIT/ML VIAL 5000 UNIT (07:49)
[2020-05-06] MEDS: Lidocaine 1% (30 ml sdv) 30 ML Vial (07:49)
--- NOTE | 2020-05-06 08:47 | PCM.OPRPT ---
Problem List (1) Anemia in chronic kidney disease (CKD) Status: Chronic Qualifiers: Chronic kidney disease stage: stage 4 (severe) Qualified Code(s): N18.4 - Chronic kidney disease, stage 4 (severe); D63.1 - Anemia in chronic kidney disease Report of Operation Date of Procedure: 05/06/20 Pre-Operative Diagnosis: Stage IV chronic renal insufficiency Post-Operative Diagnosis: Same Surgery/Procedure Performed:: Stage I left upper extremity basilic vein to brachial artery arteriovenous hemodialysis fistula creation Description of Surgical Findings:: Timeout and informed consent was obtained. 74-year-old female was taken to the operating place upon the table. She underwent monitored anesthesia care. Clean procedure no antibiotics required. The left upper extremity was sterilely prepped and draped. 1% lidocaine mixed 50-50 with 0.5% Marcaine was used as a local anesthetic. Total of 15 cc was used. Local was instilled. An oblique incision was made in the left antecubital space. Sharp and blunt dissection was used to identify the basilic vein. It was circumferentially dissected free. Side branches were secured with hemoclips. Small the anatomy was closed with a [id number] suture of 7-0 Prolene. Then sharp and blunt dissection was used to identify the brachial artery and it was circumferentially controlled. The patient then received 2000 units of heparin IV. After adequate circulating time peripheral vascular clamps were placed on the brachial artery. The vein was ligated distally with a Hemoclip and then it was spatulated. A arteriotomy was created with 11 blade and extended with Burr scissors. A end-to-side venous to arterial anastomosis was created with running 7-0 Prolene. Prior to completion there was good antegrade and retrograde flow. The anastomosis was completed a single repair suture of 7-0 Prolene was required. There was good flow in the fistula with a palpable thrill. Hemostasis was intact. The hand was viable. The wound was closed with a deep layer of interrupted 3-0 Vicryl and then a running septic or 4-0 Monocryl. Steri-Strips Telfa tape dressings applied. Sponge and instrument and needle counts were reported to the surgeon to be correct. Specimens none. Drains none. Blood loss minimal. The patient was taken to the recovery area in satisfactory edition without apparent complication Aaron Devi M.D., F.A.C.S. Type of Anesthesia:: Local MAC Anesthesiologist: Kelly Leggett
== END 2020-05-06 10:32 | disposition home or self-care (01) ==
LOC: SDC 05:26 → AC 05:26
PROVIDERS: PCP Internal Medicine; Referring Provider Surgery; Visit Provider Surgery
PROC: (CPT 36821; principal; 2020-05-06 07:15)
DX: I13.0 Hypertensive heart and chronic kidney disease with heart failure and stage 1 through stage 4 chronic kidney disease, or unspecified chronic kidney disease (principal); N18.4 Chronic kidney disease, stage 4 (severe); D63.1 Anemia in chronic kidney disease; I27.21 Secondary pulmonary arterial hypertension; K21.9 Gastro-esophageal reflux disease without esophagitis; G47.33 Obstructive sleep apnea (adult) (pediatric); E78.5 Hyperlipidemia, unspecified; I50.32 Chronic diastolic (congestive) heart failure; E11.22 Type 2 diabetes mellitus with diabetic chronic kidney disease; Z79.4 Long term (current) use of insulin; Z79.82 Long term (current) use of aspirin; Z88.1 Allergy status to other antibiotic agents; Z88.6 Allergy status to analgesic agent; Z88.8 Allergy status to other drugs, medicaments and biological substances
CPT/HCPCS: 36821; 36415; 80048; 82962; 85027; 87426; 93005; C9803; J7120; J2405

== ENCOUNTER 2020-05-10 11:57 | Outpatient (RCR) | payer MEDICARE, SELFPAY ==
[2020-05-06 05:56] VITALS: BMI 36.8
[2020-05-10] MEDS: COVID-19 VACC, MRNA(PFIZER)/PF 30 MCG/0.3 ML SYRINGE IM (13:38)
[2020-05-31] MEDS: COVID-19 VACC, MRNA(PFIZER)/PF 30 MCG/0.3 ML SYRINGE IM (13:30)
== END 2020-08-09 23:59 ==
LOC: IMMUN 11:57
PROVIDERS: PCP Internal Medicine; Visit Provider Family Medicine
DX: Z23 Encounter for immunization (principal)
CPT/HCPCS: 0001A; 0002A; 91300

== ENCOUNTER → 2020-05-18 09:20 | Outpatient (CLI) | payer MEDICARE, SELFPAY ==
[2020-04-08 18:30] VITALS: BMI 38.9
[2020-05-06 05:56] VITALS: BMI 36.8
[2020-05-18 10:04] LABS: 24 Hour Urine Protein 1223.8 mg/24HR (<150 MG/24HR); 24HR. UA Prot. Total Volume 1250 mL; Urine Protein (24 Hour) 97.9 mg/dL (<11.9)
[2020-05-18 10:58] LABS: Hematocrit 21.3 % (37-47); Hemoglobin 6.6 g/dL (12.0-15.0); Mean Corpuscular Volume 96.8 fL (81-99); Platelet Count 169 K/mm3 (150-450); RBC Distribution Width CV 16.1 % (11.6-14.6); White Blood Count 8.1 K/mm3 (4.4-11.0)
[2020-05-18 11:37] LABS: Albumin, Serum 3.7 g/dL (3.2-5.0); BUN 68 mg/dL (7-18); BUN/Creat Ratio 15.4 RATIO (10-20); Chloride 116 mmol/L (98-107); Creatinine, Serum 4.41 mg/dL (0.55-1.02); EST Glomerular Filtration Rate 10 mL/min (>60); Est Glom Filt Rate - Afr Amer 13 mL/min (>60); Glucose 115 mg/dL (74-106); Potassium 3.9 mmol/L (3.5-5.1); Sodium Level 144 mmol/L (136-145)
[2020-05-18 12:17] LABS: Creat.Clear Total Volume 1250 mL; Creatinine Clearance 15 ml/min (100-200); Creatinine Serum Creat 4.4 mg/dL (0.6-1.0); Creatinine Urine 74.6 mg/dL (NO RANGE EST.); EST Glomerular Filtration Rate 10 mL/min (>60); Est Glom Filt Rate - Afr Amer 13 mL/min (>60)
== END ==
PROVIDERS: PCP Internal Medicine; Referring Provider Internal Medicine Nephrology; Visit Provider Internal Medicine Nephrology
DX: N18.4 Chronic kidney disease, stage 4 (severe) (principal); D63.8 Anemia in other chronic diseases classified elsewhere
CPT/HCPCS: 36415; 80069; 81050; 82575; 84156; 85027

== ENCOUNTER → 2020-06-09 12:41 | Outpatient (CLI) | payer MEDICARE, SELFPAY ==
[2020-05-06 05:56] VITALS: BMI 36.8
[2020-06-08 11:02] VITALS: BMI 37.0
--- NOTE | 2020-06-09 12:44 | AVDS_ITS ---
Reason For Study: Venous outflow obstruction LEFT Inflow artery, 229.6/49.4 cm/sec. Inflow artery, 512.3 ml/min. Prox anastomosis, 388.3/77.9 cm/sec. Prox anastomosis, 562.4 ml/min. Prox graft, 406.5/101.5cm/sec. Prox graft, 404.7 ml/min. Mid graft, 59.7/17.9 cm/sec. Mid graft, 434.9 ml/min. Distal graft, 28.2/10.7 cm/sec. Distal graft, 218.3 ml/min Outflow vein, 47.4/15.1 cm/sec. Outflow vein, 327.1 ml/min. Pseudoaneurysm noted at proximal graft measuring approximently 2.1 x 2.3 cm. With a neck measuring approximently 0.29 cm. Prelim called to Miri. VL/AV Fistula/Dialysis Graft Scan Interpretation Summary Diminished flow left forearm arteriovenous fistula with 2.1 x 2.3 cm pseudoaneu rysm proximal fistula with a 0.29cm neck. Ordering Physician: Deborah Osborn Referring Physician: Hamzah Wallis Performed By: Elida Aggarwal RVT
== END ==
PROVIDERS: PCP Internal Medicine; Referring Provider Surgery; Visit Provider Surgery
DX: N18.4 Chronic kidney disease, stage 4 (severe) (principal)
CPT/HCPCS: 93990

== ENCOUNTER → 2020-06-23 14:40 | Outpatient (CLI) | payer MEDICARE, SELFPAY ==
[2020-06-22 13:36] VITALS: BMI 35.9
[2020-06-23 15:11] LABS: Hematocrit 26.2 % (37-47); Mean Corp Hgb Conc 30.5 g/dL (32-36); Mean Corpuscular Hgb 29.7 pg (27.0-32.0); Mean Corpuscular Volume 97.4 fL (81-99); Mean Platelet Vol. 11.3 fl (6.2-12.0); Platelet Count 140 K/mm3 (150-450); RBC Distribution Width CV 16.2 % (11.6-14.6); RBC Distribution Width SD 56.5 fl (35.1-43.9); Red Blood Count 2.69 M/mm3 (4.2-5.4); White Blood Count 8.4 K/mm3 (4.4-11.0)
== END ==
PROVIDERS: PCP Internal Medicine; Visit Provider Internal Medicine Nephrology
DX: N18.9 Chronic kidney disease, unspecified (principal); D63.1 Anemia in chronic kidney disease
CPT/HCPCS: 36415; 85027

== ENCOUNTER → 2020-07-08 09:35 | Outpatient (CLI) | payer MEDICARE, SELFPAY ==
[2020-06-22 13:36] VITALS: BMI 35.9
[2020-07-06 14:35] VITALS: BMI 34.1
--- NOTE | 2020-07-08 09:37 | AVDS_ITS ---
Reason For Study: Malfunction of vascular device. LEFT Inflow artery, 154.5/17.1 cm/sec. Inflow artery, 284.9 ml/min. Prox anastomosis, 269 cm/sec. Prox anastomosis, 203 ml/min. Prox graft, 239.7/114.3 cm/sec. Prox graft, 68.1 ml/min. Mid graft, 136.3/19.7 cm/sec. Mid graft, 523.3 ml/min. Distal graft, 43.5/14.9 cm/sec. Distal graft, 200.6 ml/min Outflow vein, 46.8/19.3 cm/sec. Outflow vein, 278.5 ml/min. Pseudoaneurysm noted at proximal graft measuring approximently 2.14 x 3.22 x 2.89 cm. With a neck measuring approximently 0.26 cm. VL/AV Fistula/Dialysis Graft Scan Interpretation Summary Diminished flow throughout the left upper extremity arteriovenous fistula. 2.14 x 3.22 x 2.89 cm pseudoaneurysm proximal fistula with neck measuring 0.26 cm This has enlarged since the previous examination of June 09, 2020 Ordering Physician: Aaron Devi Referring Physician: Hamzah Wallis Performed By: Elida Aggarwal RVT
== END ==
PROVIDERS: PCP Internal Medicine; Referring Provider Surgery; Visit Provider Surgery
DX: T82.898A Other specified complication of vascular prosthetic devices, implants and grafts, initial encounter (principal)
CPT/HCPCS: 93990

== ENCOUNTER → 2020-07-13 09:35 | Outpatient (CLI) | payer MEDICARE, SELFPAY ==
[2020-07-06 14:35] VITALS: BMI 34.1
[2020-07-12 07:42] VITALS: BMI 33.6
--- NOTE | 2020-07-13 11:47 | OP.PCM_ITS ---
Report of Operation Date of Procedure: 07/13/20 Pre-Operative Diagnosis: Pseudoaneurysm left antecubital space related to a bra chial to basilic arteriovenous hemodialysis fistula Post-Operative Diagnosis: Same Surgery/Procedure Performed:: Ultrasound-guided thrombin injection left antecubital space brachial to basilic arteriovenous hemodialysis fistula pseudoaneurysm Description of Surgical Findings:: The patient was taken to an ultrasound location. The left arm was gently extended and prepped with Betadine. Under ultrasound guidance 1% lidocaine was instilled as a local anesthetic. 1 cc was used. Then under ultrasound guidance thrombin 5000 units was selected. Under ultrasound guidance carefully at the furthest distance away from the jet point of the pseudoaneurysm 0.1 cc was injected. That caused immediate thrombosis of the pseudoaneurysm. Images were obtained suggesting continued to flow in the fistula and in the brachial artery. The patient pre and post procedure had an excellent 3+ left radial pulse. Her hand is completely asymptomatic. It has good color and good warmth. She had no discomfort whatsoever throughout the procedure. The patient now will be observed for 1 hour prior to discharge. It is anticipated that a duplex exam of her pseudoaneurysm of the left upper arm will be pursued tomorrow for immediate follow-up. Aaron Devi M.D., F.A.C.S. tube machine operator: Deborah Osborn Type of Anesthesia: Local
== END ==
PROVIDERS: PCP Internal Medicine; Referring Provider Surgery; Visit Provider Surgery
DX: T82.510D Breakdown (mechanical) of surgically created arteriovenous fistula, subsequent encounter (principal); T82.898A Other specified complication of vascular prosthetic devices, implants and grafts, initial encounter; I72.1 Aneurysm of artery of upper extremity
CPT/HCPCS: 93931

== ENCOUNTER → 2020-07-14 12:43 | Outpatient (CLI) | payer MEDICARE, SELFPAY ==
[2020-07-12 07:42] VITALS: BMI 33.6
[2020-07-14 10:28] VITALS: BMI 34.1
== END ==
PROVIDERS: PCP Internal Medicine; Referring Provider Physician Assistant; Visit Provider Physician Assistant
DX: T82.510A Breakdown (mechanical) of surgically created arteriovenous fistula, initial encounter (principal); N18.4 Chronic kidney disease, stage 4 (severe); D63.1 Anemia in chronic kidney disease
CPT/HCPCS: 36415; 85025; 93931; 96365; 96366; 96372; J1756; J7050; Q5106

== ENCOUNTER → 2020-07-28 07:23 | Outpatient (CLI) | payer MEDICARE, SELFPAY ==
[2020-07-25 11:11] VITALS: BMI 33.6
[2020-07-27 13:30] VITALS: BMI 34.1
[2020-07-28 10:44] LABS: PTHIN 160.5 pg/mL (18.4-80.1)
[2020-07-28 11:18] LABS: Albumin, Serum 3.5 g/dL (3.2-5.0); BUN 43 mg/dL (7-18); BUN/Creat Ratio 13.6 RATIO (10-20); Calcium,Total 9.1 mg/dL (8.5-10.1); Chloride 113 mmol/L (98-107); Creatinine, Serum 3.17 mg/dL (0.55-1.02); EST Glomerular Filtration Rate 15 mL/min (>60); Est Glom Filt Rate - Afr Amer 18 mL/min (>60); Glucose 104 mg/dL (74-106); Phosphorus 5.3 mg/dL (2.5-4.9); Potassium 3.4 mmol/L (3.5-5.1); Sodium Level 145 mmol/L (136-145)
== END ==
PROVIDERS: PCP Internal Medicine; Referring Provider Internal Medicine Nephrology; Visit Provider Internal Medicine Nephrology
DX: N18.4 Chronic kidney disease, stage 4 (severe) (principal); N25.81 Secondary hyperparathyroidism of renal origin
CPT/HCPCS: 36415; 80069; 83970

== ENCOUNTER → 2020-08-02 10:38 | Outpatient (CLI) | payer MEDICARE, SELFPAY ==
[2020-07-18 09:08] VITALS: BMI 33.6
[2020-08-02 05:40] VITALS: BMI 34.1
== END ==
PROVIDERS: PCP Internal Medicine; Referring Provider Surgery; Visit Provider Surgery
DX: T82.510A Breakdown (mechanical) of surgically created arteriovenous fistula, initial encounter (principal)
CPT/HCPCS: 93931

== ENCOUNTER 2020-08-04 12:38 | Day surgery (SDC) | payer MEDICARE, SELFPAY ==
[2020-07-18 09:08] VITALS: BMI 33.6
[2020-08-03 13:04] VITALS: BMI 33.8
[2020-08-04] VITALS (12 sets, daily range): BP systolic 175–199; BP diastolic 61–92; PULSE 67–72; RESP 16–18; TEMP 36.6–36.8; O2SAT 93–98; BMI 32.8
--- NOTE | 2020-08-04 13:41 | PCM.HP.BLA ---
History and Physical Date of Admission: 08/04/20 Intake Visit Reasons: discuss US/ OR Chief Complaint: check fistula Honey Producer Required: No Is patient in pain?: No Allergies calcium Allergy (Unknown, Verified 08/02/20 12:24) constipation amiloride Allergy (Verified 08/02/20 12:24) NEEDS FOLLOW-UP azithromycin [From Zithromax Z-Rickey] Allergy (Verified 08/02/20 12:24) NEEDS FOLLOW-UP bumetanide Allergy (Verified 08/02/20 12:24) Unknown chlorthalidone Allergy (Verified 08/02/20 12:24) Unknown clonidine HCl [From Catapres] Allergy (Verified 08/02/20 12:24) Rash diltiazem Allergy (Verified 08/02/20 12:) Unknown gemfibrozil Allergy (Verified 08/02/20:24) Unknown lisinopril Allergy (Verified 08/02/20:24) NEEDS FOLLOW-UP losartan [Losartan] Allergy (Verified 08/02/20 12:24) Unknown minoxidil Allergy (Verified 08/02/20:) Unknown nifedipine Allergy (Verified 08/02/20 12:24) Unknown simvastatin [From Zocor] Allergy (Verified 08/02/20 12:24) Unknown triamterene [From Dyazide] Allergy (Verified 08/02/20:24) Unknown valdecoxib [From Bextra] Allergy (Verified 08/02/20:24) Unknown verapamil [Verapamil] Allergy (Verified 08/02/20 12:24) Unknown atorvastatin Adverse Reaction (Unknown, Verified 08/02/20 12:24) Swelling clonidine [From Catapres] Adverse Reaction (Unknown, Verified 08/02/20 12:24) Unknown esomeprazole [From Nexium] Adverse Reaction (Unknown, Verified 08/02/20 12:24) Swelling metformin [From Glucophage] Adverse Reaction (Unknown, Verified 08/02/20 12:24) Other rosuvastatin [From Crestor] Adverse Reaction (Unknown, Verified 08/02/20 12:24) leg cramps/ swelling atorvastatin calcium [From Lipitor] Adverse Reaction (Verified 08/02/20 12:24) Leg cramps/aching celecoxib [From Celebrex] Adverse Reaction (Verified 08/02/20 12:24) Leg aching hydrochlorothiazide Adverse Reaction (Verified 08/02/20 12:24) Legs aching indapamide Adverse Reaction (Verified 08/02/20 12:24) Other insulin detemir [From Levemir] Adverse Reaction (Verified 08/02/20 12:24) Unknown lansoprazole [From Prevacid] Adverse Reaction (Verified 08/02/20 12:24) Legs aching metformin HCl [From Glucophage] Adverse Reaction (Verified 08/02/20 12:24) Diarrhea pravastatin Adverse Reaction (Verified 08/02/20 12:24) Legs aching rosuvastatin calcium [From Crestor] Adverse Reaction (Verified 08/02/20 12:24) Legs aching Medications atorvastatin 10 mg tablet 10 mg PO QHS #90 tablet 09/29/19 [Rx Confirmed 08/02/20] iron, carbonyl 65 mg PO DAILY 10/06/19 [History Confirmed 08/02/20] hydralazine 100 mg tablet 100 mg PO TID #270 tablet 10/28/19 [Rx Confirmed 08/02/20] tramadol 50 mg tablet 50 mg PO DAILY tablet 11/13/19 [History Confirmed 08/02/20] carvedilol 25 mg tablet 25 mg PO BID #180 tablet 01/13/20 [Rx Confirmed 08/02/20] coenzyme Q10 100 mg capsule 50 mg PO DAILY cap 03/23/20 [History Confirmed 08/02/20] omeprazole 20 mg capsule,delayed release 20 mg PO DAILY #90 cap 04/04/20 [Rx Confirmed 08/02/20] ascorbate calcium-bioflavonoid [Jeannette-C with Bioflavonoids] 1 each PO DAILY 05/03/20 [History Confirmed 08/02/20] cyanocobalamin (vitamin B-12) 2,000 mcg PO DAILY@0800 05/03/20 [History Confirmed 08/02/20] pen needle, diabetic 29 gauge x 1/2 #100 each 05/17/20 [Rx Confirmed 08/02/20] disability placard #1 each 05/27/20 [Rx Confirmed 08/02/20] valsartan 80 mg tablet See Rx Instructions .ROUTE .COMPLEX #30 tab 06/08/20 [Rx Confirmed 08/02/20] doxazosin 4 mg tablet 4 mg PO BID tablet 06/13/20 [History Confirmed 08/02/20] furosemide 40 mg tablet 20 mg PO DAILY tablet 06/13/20 [History Confirmed 08/02/20] isosorbide mononitrate 60 mg tablet,extended release 24 hr 60 mg PO LUNCH tablet 06/13/20 [History Confirmed 08/02/20] sitagliptin 25 mg tablet 25 mg PO DAILY tablet 06/13/20 [History Confirmed 08/02/20] insulin glargine 100 unit/mL (3 mL) subcutaneous pen 15 unit SC DAILY #15 ml 06/24/20 [Rx Confirmed 08/02/20] hydroxychloroquine 200 mg tablet 200 mg PO DAILY tab 07/06/20 [History Confirmed 08/02/20] amlodipine 10 mg PO DAILY 07/28/20 [History Confirmed 08/02/20] calcitriol [Rocaltrol] 0.25 mcg PO DAILY 07/28/20 [History Confirmed 08/02/20] [facility] Medical History Acute on chronic diastolic (congestive) heart failure Anemia Anemia of chronic disease Bilateral edema of lower extremity Cataract Chronic diastolic (congestive) heart failure Chronic osteoarthritis Chronic renal failure, stage 4 (severe) Diverticular disease Essential (primary) hypertension GERD (gastroesophageal reflux disease) History of diverticulosis HLD (hyperlipidemia) HTN (hypertension), malignant Hx of mini strokes Hyperkalemia Hyperparathyroidism Hypersomnolence Intraocular pressure increase Left carotid bruit Morbid obesity Neuropathy KHANG (obstructive sleep apnea) Problem with dialysis access Pseudoaneurysm of arteriovenous dialysis fistula Psoriasis Renal artery atherosclerosis Rheumatoid arthritis 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 Sister Diabetes Hypertension Mother Diabetes Heart disease CVA (cerebral vascular accident) Myocardial infarction age 70s Father Cancer lung CA Sister Hypertension Diabetes Social History (Reviewed 08/02/20 @ 12:24 by Raya Kumar household members: spouse housing: house pets and animals: Yes pets and animals: dog(s) Smoking Status: Never smoker alcohol intake: never substance use type: does not use caffeine: Yes Type: tea Number of servings: 4 what type of physical activity do you participate in: none seatbelt use: always do you feel safe at home: Yes HPI HPI HPI: KAYLI PELAEZ, is a 74 F who presents to the office today for ongoing surgical consultation regarding a pseudoaneurysm at a left upper arm brachial basilic arteriovenous hemodialysis fistula creation site. I did attempt ultrasound-guided thrombin injection. This initially seemed to progress well. A follow-up duplex imaging exam however demonstrated reestablished flow. The patient initially had a stage I left upper extremity brachiobasilic arteriovenous hemodialysis fistula created per myself Report of Operation Date of Procedure: 07/13/20 Pre-Operative Diagnosis: Pseudoaneurysm left antecubital space related to a brachial to basilic arteriovenous hemodialysis fistula Post-Operative Diagnosis: Same Surgery/Procedure Performed:: Ultrasound-guided thrombin injection left antecubital space brachial to basilic arteriovenous hemodialysis fistula pseudoaneurysm Description of Surgical Findings:: The patient was taken to an ultrasound location. The left arm was gently extended and prepped with Betadine. Under ultrasound guidance 1% lidocaine was instilled as a local anesthetic. 1 cc was used. Then under ultrasound guidance thrombin 5000 units was selected. Under ultrasound guidance carefully at the furthest distance away from the jet point of the pseudoaneurysm 0.1 cc was injected. That caused immediate thrombosis of the pseudoaneurysm. Images were obtained suggesting continued to flow in the fistula and in the brachial artery. The patient pre and post procedure had an excellent 3+ left radial pulse. Her hand is completely asymptomatic. It has good color and good warmth. She had no discomfort whatsoever throughout the procedure. The patient now will be observed for 1 hour prior to discharge. It is anticipated that a duplex exam of her pseudoaneurysm of the left upper arm will be pursued tomorrow for immediate follow-up. Aaron Devi M.D., F.A.C.S. director of sales marketing: Deborah Osborn Type of Anesthesia: Local ROS General General: Yes weight change and fatigue; No appetite, colon cancer, breast cancer or weakness HEENT HEENT: No difficulty swallowing, eye injury, eye surgery, swollen glands or hoarseness Endo Endocrine: Yes diabetes mellitus; No thyroid disease, thyroid cancer, Hair loss, heat intolerance or cold intolerance Skin Skin: No rash or changing moles Musc Musculoskeletal: Yes arthritis and rheumatoid arthritis; No back problems, gout or joint pain Cardio Cardiovascular: Yes heart disease and high blood pressure; No murmur, pacemaker, atrial fibrillation, heart attack, heart stent, palpitations, shortness of breat with exertion or chest pain Psych Psychiatric: No depression, anxiety or hearing voices Resp Respiratory: Yes shortness of breath, Yes sleep apnea, No cough, No COPD, No asthma, No emphysema and No wheezing Gastro Gastrointestinal: No abdominal pain, No nausea or vomiting, Yes diarrhea, Yes constipation, No blood in stool, Yes acid reflux, No hemorrhoids, No ulcers, No gallbladder problem and No black,tarry stools Mert Hematologic: No blood thinners, No blood disorders, No bleeding, Yes anemia and No blood clots Neuro Neurologic: No weakness Exam Const General: cooperative and comfortable HENWA Head: normal to inspection Ears: hearing grossly normal bilaterally Chest Chest palpation & inspection: normal inspection of the chest Resp Effort & Inspection: normal respiratory effort Auscultation: clear to auscultation bilaterally Cardio Rate: regular rate Other: Soft 2/6 systolic ejection murmur GI Palpation: soft and nontender Auscultation: normal bowel sounds Skin General: no rashes or lesions noted Neuro General: patient alert, patient awake and patient oriented x3 Extrem Other: Left antecubital space pulsatile pseudoaneurysm, erythema has resolved, well-healed surgical incision, nontender, 3+ left radial pulse, 2+ left ulnar pulse, hand is warm and viable Psych Affect: normal affect Assessment and Plan Assessment and Plan (1) Pseudoaneurysm of arteriovenous dialysis fistula: Status: Acute Qualifiers: Encounter type: subsequent encounter Qualified Code(s): T82.510D - Breakdown (mechanical) of surgically created arteriovenous fistula, subsequent encounter Plan Details Additional Comments: I had a thorough discussion with the patient and her today. The patient's hemoglobin has recovered to 9.6. I performed a thrombin injection of her left antecubital pseudoaneurysm however it has rapidly reconstituted flow. I do not believe that this will be a good long-term resolution. I propose for her a direct exploration of the area. I anticipate potential opportunity to salvage the fistula but an equally potential opportunity to have this sacrifice the fistula. I may need to use portion of the vein is a patchy graft for the brachial artery. She is complaining of some intermittent prickly sensations. She is aware that this is neurologic in origin. She is aware that tissue planes will be distorted. She is aware that this may be technically a very challenging procedure to accomplish. I anticipate placing a blood pressure cuff to the left upper extremity. She likely will require anticoagulation in order to perform the procedure. She is aware of the technique, benefit, risk and alternatives. She is aware of potential ischemia to the left hand and difficulties with reestablishing left brachial arterial flow. She has had an opportunity to ask and have questions answered. The pseudoaneurysm currently is not at its maximum size but is recannulating quickly. I do not believe that reinjection will provide a long-term resolution. She has had an opportunity to ask and have questions answered. We will schedule and proceed at her discretion. Aaron Devi M.D., F.A.C.S. Coding Level of Care Code Off vis,est,level 2 Diagnoses Pseudoaneurysm of arteriovenous dialysis fistula T82.510D Encounter type: subsequent encounter I have re-examined the patient. There are no clinical changes since date of exam.
--- NOTE | 2020-08-04 13:43 | PCM.DC ---
Discharge Instructions Diet Discharge Diet: Renal Diet Activity Discharge Activity: May Not Drive (for 2-3 days or while taking narcotic pain medications.), May Shower and May Take a Tub Bath (in 5 days.) Lifting Restrictions: 5 pounds Keep extremity elevated above heart level: - (Keep arm elevated above the heart level for 3 days.) Dressing / Incision Call your doctor if your incision/area has: Continuous Slow Oozing, Sudden Increased Bleeding (apply pressure and call your doctor.), Increased Pain/ Swelling, Increased Redness and Foul Smelling Discharge Call your doctor if you observe: Fever of 101 or Higher Suture Line Care: Avoid Pulling/Pushing and Avoid Pinching/Bending Cleanse incision/area with: Keep Dressing Clean & Dry Additional Dressing/Incision Instructions:: Change or remove dressing in one day. May protect with a gauze bandaid. Follow Up Care Please Follow Up With: Aaron Devi MD When: Please call [phone] for office appointment on August 10, 2020 for wound inspection and suture removal Elevate your left arm for comfort Leave the elastic dressing on for 2 to 3 days if well tolerated Test Results: Test results from this visit will be discussed in further detail at your follow-up appointment, if applicable. Discharge Plan Admission Primary Reason for Your Visit: Pseudoaneurysm left upper arm brachial to basilic arteriovenous hemodialysi Attending Provider: Aaron Devi Primary Care Provider: Hamzah Wallis Discharge Orders/Prescriptions Prescriptions: No Action atorvastatin 10 mg tablet 10 mg PO QHS Qty: 90 RF: 3 Januvia 25 mg tablet 25 mg PO DAILY RF: 0 furosemide [Lasix] 40 mg tablet 20 mg PO DAILY RF: 0 insulin glargine 100 unit/mL (3 mL) insulin pen 15 unit SC DAILY Qty: 15 RF: 3 tramadol 50 mg tablet 50 mg PO DAILY RF: 0 coenzyme Q10 100 mg capsule 50 mg PO DAILY RF: 0 iron, carbonyl 45 MG tablet 65 mg PO DAILY RF: 0 doxazosin [Cardura] 4 mg tablet 4 mg PO BID RF: 0 hydroxychloroquine [Plaquenil] 200 mg tablet 200 mg PO DAILY RF: 0 isosorbide mononitrate 60 mg tablet extended release 24 hr 60 mg PO LUNCH RF: 0 cyanocobalamin (vitamin B-12) 500 MCG tablet 2,000 mcg PO DAILY@0800 RF: 0 Jeannette-C with Bioflavonoids 1 EACH tablet 1 each PO DAILY RF: 0 calcitriol [Rocaltrol] 0.25 mcg capsule 0.25 mcg PO DAILY RF: 0 amlodipine 10 mg tablet 10 mg PO DAILY RF: 0 hydralazine 100 mg tablet 100 mg PO TID Qty: 270 RF: 3 carvedilol 25 mg tablet 25 mg PO BID Qty: 180 RF: 3 omeprazole 20 mg capsule,delayed release(DR/EC) 20 mg PO DAILY Qty: 90 RF: 1 (DME) pen needle, diabetic [BD Ultra-Fine Orig Pen Needle] 29 gauge x 1/2 needle See Rx Instructions .ROUTE .MEDSUPPLY Qty: 100 RF: 3 (DME) disability placard See Rx Instructions .Route .MEDSUPPLY Qty: 1 RF: 0 valsartan 80 mg tablet 80 mg PO DAILY Qty: 90 RF: 0 Referrals / Follow Up: Hamzah Wallis MD [Primary Care Provider] - Disposition Disposition (needs filled in before D/C Order can be placed): Home, self care
[2020-08-04] MEDS: 0.9% Normal Saline 1,000 ML 100 ML IV (13:45)
[2020-08-04 13:50] LABS: Bedside Glucose 139 mg/dL (70-110)
[2020-08-04] MEDS: Cefazolin 2 GM in 0.9% Normal Saline 100 ML IV (14:15)
[2020-08-04] MEDS: Bupivacaine Mpf 0.5% 30 ML VIAL (15:50)
[2020-08-04] MEDS: Lidocaine 1% (30 ml sdv) 30 ML Vial (15:54)
--- NOTE | 2020-08-04 16:08 | OP.PCM_ITS ---
Problems Associated Problem List Diagnoses (1) Pseudoaneurysm of arteriovenous dialysis fistula: Report of Operation Date of Procedure: 08/04/20 Pre-Operative Diagnosis: Pseudoaneurysm left upper extremity brachial to basilic arteriovenous hemodialysis fistula Post-Operative Diagnosis: Same Surgery/Procedure Performed:: Left upper arm exploration with repair brachial artery and control of pseudoaneurysm with ligation of basilic vein Description of Surgical Findings:: Timeout and informed consent was obtained. The patient was taken to the operating placed supine on the table. She underwent general anesthesia. Ancef 2 g were given intravenously. The left upper extremity was sterilely prepped draped. A tourniquet was applied. The patient received 9000 units of heparin. After 3 minutes circulating time the tourniquet was insufflated to initially 300 mmHg pressure and then that was decreased to 290 mmHg pressure. An oblique incision was made at the left antecubital space at the site of the previous incision. The periincisional areas anesthetized with 1% lidocaine mixed 50-50 with 0.5% Marcaine. A total of 12 cc was used. Blunt dissection was used dissect around the pseudoaneurysm. I then made an incision in the anterior surface of the pseudoaneurysm dissected down was able to see what I thought was suture line there is clot within the aneurysm there was evidence of pulsatile flow. At that site I then secured that with several [id number] sutures of 6-0 Prolene. The in order to see that site the tourniquet was deflated. Radial pulse could be felt throughout. No further bleeding was coming from the apparent defect site. The radial artery was intact. Because of the amount of soft tissue distortion identifying precisely the brachial artery and fistula connection was not possible. I felt that I had controlled the source of the pseudoaneurysm bleeding. I felt that further attempts at identification would likely be brought with potential harm. [place] that identify the basilic vein outflow and ligated that with a [id number] suture of 3-0 Vicryl. I then reapproximated the pseudoaneurysm sac and placed FloSeal internally. There was diffuse tissue ooze from the sharply and bluntly dissected tissue around the pseudoaneurysm site closed FloSeal and then Surgicel and pressure to help control that. I approximated the skin incision with interrupted 3-0 Vicryl subdermal stitches and then multiple simple sutures of 4-0 nylon. Direct pressure continue to be held throughout the procedure. At the completion felt that hemostasis was intact with a good viable hand. Telfa soft roll Dameon wrap applied. Sponge and instrument and needle counts reported to the surgeon be correct. It is of note that once the site of the bleeding had been identified and the Prolene sutures inserted the patient received 30 mg of protamine as reversal. She was subsequently taken to the recovery room in satisfactory condition no apparent complication Specimen none. Drains none. Blood loss 150 cc Aaron Devi M.D., F.A.C.S. Type of Anesthesia: General and Local Anesthesiologist: Silvio Maher
[2020-08-04] MEDS: hydrALAZINE 20 MG/ML Vial 5 MG IV (16:30)
== END 2020-08-04 18:29 | disposition home or self-care (01) ==
LOC: SDC 12:39 → AC 12:40
PROVIDERS: PCP Internal Medicine; Referring Provider Surgery; Visit Provider Surgery
PROC: (CPT 37607; principal; 2020-08-04 14:50)
DX: T82.510D Breakdown (mechanical) of surgically created arteriovenous fistula, subsequent encounter (principal); I72.1 Aneurysm of artery of upper extremity; Z88.1 Allergy status to other antibiotic agents; Z88.6 Allergy status to analgesic agent; Z88.8 Allergy status to other drugs, medicaments and biological substances; Z99.2 Dependence on renal dialysis; E78.5 Hyperlipidemia, unspecified; G47.33 Obstructive sleep apnea (adult) (pediatric); I13.0 Hypertensive heart and chronic kidney disease with heart failure and stage 1 through stage 4 chronic kidney disease, or unspecified chronic kidney disease; E11.22 Type 2 diabetes mellitus with diabetic chronic kidney disease; N18.4 Chronic kidney disease, stage 4 (severe); I50.32 Chronic diastolic (congestive) heart failure; D63.1 Anemia in chronic kidney disease; Z79.4 Long term (current) use of insulin
CPT/HCPCS: 01844; 36833; 82962; J7040; J2405

== ENCOUNTER → 2020-09-21 07:21 | Outpatient (CLI) | payer MEDICARE, SELFPAY ==
[2020-09-07 13:59] VITALS: BMI 34.1
[2020-09-14 13:14] VITALS: BMI 34.1
== END ==
PROVIDERS: PCP Internal Medicine; Referring Provider Surgery; Visit Provider Surgery
DX: N18.5 Chronic kidney disease, stage 5 (principal); D63.1 Anemia in chronic kidney disease; N25.81 Secondary hyperparathyroidism of renal origin; T82.510A Breakdown (mechanical) of surgically created arteriovenous fistula, initial encounter
CPT/HCPCS: 36415; 85025; 93931; 96372; Q5106

== ENCOUNTER 2020-10-10 07:45 | Day surgery (SDC) | payer MEDICARE, SELFPAY ==
[2020-09-07 13:59] VITALS: BMI 34.1
[2020-09-30 13:04] VITALS: BMI 33.1
[2020-10-10] VITALS (10 sets, daily range): BP systolic 212–238; BP diastolic 53–73; PULSE 72–85; RESP 16; TEMP 36.2–36.7; O2SAT 95–98; BMI 32.3
[2020-10-10 09:20] LABS: Bedside Glucose 196 mg/dL (70-110)
[2020-10-10 10:08] LABS: Hematocrit 33.3 % (37-47); Hemoglobin 10.6 g/dL (12.0-15.0); Mean Corp Hgb Conc 31.8 g/dL (32-36); Mean Corpuscular Hgb 29.2 pg (27.0-32.0); Mean Corpuscular Volume 91.7 fL (81-99); Mean Platelet Vol. 10.2 fl (6.2-12.0); Platelet Count 144 K/mm3 (150-450); RBC Distribution Width CV 16.2 % (11.6-14.6); RBC Distribution Width SD 54.5 fl (35.1-43.9); Red Blood Count 3.63 M/mm3 (4.2-5.4); White Blood Count 10.2 K/mm3 (4.4-11.0)
[2020-10-10 10:25] LABS: Anion Gap 9 (5-15); BUN 53 mg/dL (7-18); BUN/Creat Ratio 14.7 RATIO (10-20); Calcium,Total 9.3 mg/dL (8.5-10.1); Chloride 113 mmol/L (98-107); Creatinine, Serum 3.61 mg/dL (0.55-1.02); EST Glomerular Filtration Rate 13 mL/min (>60); Est Glom Filt Rate - Afr Amer 16 mL/min (>60); Estimated Creatinine Clearance 11.99 ml/min; Glucose 185 mg/dL (74-106); Potassium 3.7 mmol/L (3.5-5.1); Sodium Level 142 mmol/L (136-145)
[2020-10-10] MEDS: Vancomycin IV 1,000 MG/200 ML BAG 200 MG IV (11:15)
--- NOTE | 2020-10-10 11:25 | HP.PCM_ITS ---
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 Required: No Is patient in pain?: No Allergies calcium Allergy (Unknown, Verified 09/27/20 13:42) constipation amiloride Allergy (Verified 09/27/20 13:42) NEEDS FOLLOW-UP azithromycin [From Zithromax Z-Rickey] Allergy (Verified 09/27/20 13:42) NEEDS FOLLOW-UP bumetanide Allergy (Verified 09/27/20 13:42) Unknown chlorthalidone Allergy (Verified 09/27/20 13:42) Unknown clonidine HCl [From Catapres] Allergy (Verified 09/27/20 13:42) Rash diltiazem Allergy (Verified 09/27/20 13:42) Unknown gemfibrozil Allergy (Verified 09/27/20 13:42) Unknown lisinopril Allergy (Verified 09/27/20 13:42) NEEDS FOLLOW-UP losartan [Losartan] Allergy (Verified 09/27/20 13:42) Unknown minoxidil Allergy (Verified 09/27/20 13:42) Unknown nifedipine Allergy (Verified 09/27/20 13:42) Unknown simvastatin [From Zocor] Allergy (Verified 09/27/20 13:42) Unknown triamterene [From Dyazide] Allergy (Verified 09/27/20 13:42) Unknown valdecoxib [From Bextra] Allergy (Verified 09/27/20 13:42) Unknown verapamil [Verapamil] Allergy (Verified 09/27/20 13:42) Unknown atorvastatin Adverse Reaction (Unknown, Verified 09/27/20 13:42) Swelling clonidine [From Catapres] Adverse Reaction (Unknown, Verified 09/27/20 13:42) Unknown esomeprazole [From Nexium] Adverse Reaction (Unknown, Verified 09/27/20 13:42) Swelling metformin [From Glucophage] Adverse Reaction (Unknown, Verified 09/27/20 13:42) Other rosuvastatin [From Crestor] Adverse Reaction (Unknown, Verified 09/27/20 13:42) leg cramps/ swelling atorvastatin calcium [From Lipitor] Adverse Reaction (Verified 09/27/20 13:42) Leg cramps/aching celecoxib [From Celebrex] Adverse Reaction (Verified 09/27/20 13:42) Leg aching hydrochlorothiazide Adverse Reaction (Verified 09/27/20 13:42) Legs aching indapamide Adverse Reaction (Verified 09/27/20 13:42) Other insulin detemir [From Levemir] Adverse Reaction (Verified 09/27/20 13:42) Unknown lansoprazole [From Prevacid] Adverse Reaction (Verified 09/27/20 13:42) Legs aching metformin HCl [From Glucophage] Adverse Reaction (Verified 09/27/20 13:42) Diarrhea pravastatin Adverse Reaction (Verified 09/27/20 13:42) Legs aching rosuvastatin calcium [From Crestor] Adverse Reaction (Verified 09/27/20 13:42) Legs aching Medications atorvastatin 10 mg tablet 10 mg PO QHS #90 tablet 09/29/19 [Rx Confirmed 09/27/20] iron, carbonyl 65 mg PO DAILY 10/06/19 [History Confirmed 09/27/20] hydralazine 100 mg tablet 100 mg PO TID #270 tablet 10/28/19 [Rx Confirmed 09/27/20] tramadol 50 mg tablet 50 mg PO DAILY tablet 11/13/19 [History Confirmed 09/27/20] carvedilol 25 mg tablet 25 mg PO BID #180 tablet 01/13/20 [Rx Confirmed 09/27/20] coenzyme Q10 100 mg capsule 50 mg PO DAILY cap 03/23/20 [History Confirmed 09/27/20] ascorbate calcium-bioflavonoid [Jeannette-C with Bioflavonoids] 1 each PO DAILY 05/03/20 [History Confirmed 09/27/20] cyanocobalamin (vitamin B-12) 2,000 mcg PO DAILY@0800 05/03/20 [History Confirmed 09/27/20] pen needle, diabetic 29 gauge x 1/2 #100 each 05/17/20 [Rx Confirmed 09/27/20] disability placard #1 each 05/27/20 [Rx Confirmed 09/27/20] doxazosin 4 mg tablet 4 mg PO BID tablet 06/13/20 [History Confirmed 09/27/20] furosemide 40 mg tablet 20 mg PO DAILY tablet 06/13/20 [History Confirmed 09/27/20] isosorbide mononitrate 60 mg tablet,extended release 24 hr 60 mg PO LUNCH tablet 06/13/20 [History Confirmed 09/27/20] insulin glargine 100 unit/mL (3 mL) subcutaneous pen 15 unit SC DAILY #15 ml 06/24/20 [Rx Confirmed 09/27/20] hydroxychloroquine 200 mg tablet 200 mg PO DAILY tab 07/06/20 [History Confirmed 09/27/20] amlodipine 10 mg PO DAILY 07/28/20 [History Confirmed 09/27/20] calcitriol [Rocaltrol] 0.25 mcg PO DAILY 07/28/20 [History Confirmed 09/27/20] valsartan 80 mg tablet 80 mg PO DAILY #90 tablet 08/03/20 [Rx Confirmed 09/27/20] Januvia 25 mg tablet 25 mg PO DAILY #90 tab NS 08/16/20 [Rx Confirmed 09/27/20] omeprazole 20 mg capsule,delayed release 20 mg PO DAILY #90 cap 09/22/20 [Rx Confirmed 09/27/20] Is last menstrual period known: No Post menopausal: Yes Patient : No Nurse's Note: pt BP very elevated--pt states this has become her normal despite medication and Dr. Wallis is aware, note will be sent to PCP to ensure their knowledge. pt states even with home reading it is only minimally better than this number. pt advised if BP is this high day of surgery anesthesia may refuse to sedate. pt verbalizes understanding. [facility] Medical History Acute on chronic diastolic (congestive) heart failure Anemia Anemia of chronic disease Bilateral edema of lower extremity Cataract Chronic diastolic (congestive) heart failure Chronic osteoarthritis Chronic renal failure, stage 4 (severe) Diverticular disease Essential (primary) hypertension GERD (gastroesophageal reflux disease) History of diverticulosis HLD (hyperlipidemia) HTN (hypertension), malignant Hx of mini strokes Hyperkalemia Hyperparathyroidism Hypersomnolence Intraocular pressure increase Left carotid bruit Morbid obesity Neuropathy KHANG (obstructive sleep apnea) Problem with dialysis access Pseudoaneurysm of arteriovenous dialysis fistula Psoriasis Renal artery atherosclerosis Rheumatoid arthritis 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 Sister Diabetes Hypertension Mother Diabetes Heart disease CVA (cerebral vascular accident) Myocardial infarction age 70s Father Cancer lung CA Sister Hypertension Diabetes Social History household members: spouse housing: house pets and animals: Yes pets and animals: dog(s) Smoking Status: Never smoker alcohol intake: never substance use type: does not use caffeine: Yes Type: tea Number of servings: 4 what type of physical activity do you participate in: none seatbelt use: always do you feel safe at home: Yes HPI HPI HPI: KAYLI PELAEZ, is a 74 F who presents to the office today for wound check Previous notes reflect the following She denies fever, chills. She is not currently on dialysis. She has routine follow-up with Dr. Ivanna Aguilar Patient's previous history: Patient has noted a decrease in swelling. She has been taking the recommended dosage of antibiotics. Her culture returned as Staph aureus. She has noted another area along the incision which has opened and started to drain bloody serous drainage. Patient notes improvement in pain. She has two days left of antibiotics. Patient is a 74 y/o F I am following for pseudoaneurysm of the left upper extremity fistula. Dr. Devi performed a left upper extremity exploration with repair brachial artery and control of pseudoaneurysm with ligation of basilic vein on 08/04/20. Patient tolerated the procedure well. She notes some discomfort. She has been elevating her arm and using ice for swelling. She is not currently on dialysis. Dr. Aguilar is her correction officer head. Her most recent appointment with Dr. Aguilar was last week. Per patient, Dr. Aguilar's recommendation is to continue with a fistula creation with patient needing dialysis in the near future. Patient notes she is continuing to work with hematology on hemoglobin level. Patient returned to our office yesterday, 08/31, for an update history and physical and schedule a fistula creation. She has unfortunately noted a change at the area of the previous incision of the left upper extremity. She stated on Saturday she noted the area was warm and erythematous. Dr. Devi performed an incision and drainage in return had a large amount of pus come from the wound. Patient was placed Augmentin x 10 days. She has not started this medication as of her appointment today. She notes pain in the area. She returns today for a dressing change and re-evaluation. Culture preliminary is showing staph aureus. Dr. Devi will plan to perform a right upper extremity brachial to basilic arteriovenous fistula creation in October. Patient will be re-evaluated in 2 weeks. Patient will need pre-op antibiotics for this procedure which will cover for Staph Aureus. Update H&P will be completed at next appointment. Patient thinks that her left antecubital space has improved. It is of note that on September 21, 2020 of duplex exam was performed at that left upper extremity. The pseudoaneurysm previously seen is no longer vascularized and currently measures 1.45 x 2.35 x 2.38 cm. The left brachial artery is patent proximally and throughout that area. The left radial and ulnar artery are patent. She claims that occasionally feels twinges of discomfort. No fever or chills. The redness has abated but has left her slightly hyperpigmented. She has no left hand pain. ROS General General: Yes weight change and fatigue; No appetite, colon cancer, breast cancer or weakness HEENT HEENT: No difficulty swallowing, eye injury, eye surgery, swollen glands or hoarseness Endo Endocrine: Yes diabetes mellitus; No thyroid disease, thyroid cancer, Hair loss, heat intolerance or cold intolerance Skin Skin: No rash or changing moles Musc Musculoskeletal: Yes arthritis and rheumatoid arthritis; No back problems, gout or joint pain Cardio Cardiovascular: Yes heart disease and high blood pressure; No murmur, pacemaker, atrial fibrillation, heart attack, heart stent, palpitations, shortness of breat with exertion or chest pain Psych Psychiatric: No depression, anxiety or hearing voices Resp Respiratory: Yes shortness of breath, Yes sleep apnea, No cough, No COPD, No asthma, No emphysema and No wheezing Gastro Gastrointestinal: No abdominal pain, No nausea or vomiting, Yes diarrhea, Yes constipation, No blood in stool, Yes acid reflux, No hemorrhoids, No ulcers, No gallbladder problem and No black,tarry stools Mert Hematologic: No blood thinners, No blood disorders, No bleeding, Yes anemia and No blood clots Neuro Neurologic: No weakness Exam Const General: cooperative, comfortable and no acute distress Nutritional Appearance: obese [facility] Head: normal to inspection Eyes General: appearance normal, both eyes and all related structures Resp Effort & Inspection: normal respiratory effort Auscultation: clear to auscultation bilaterally Cardio Rate: regular rate Rhythm: regular rhythm GI Palpation: soft Skin Other: Left antecubital space hyperpigmented. Soft and spongy. Nontender. Brachial pulses easily palpable and transmitted. No bruit. No drainage. Extrem Other: Right upper extremity unremarkable. No visible superficial veins. Brachial artery is 2+. Right radial artery diminished at 1-2+. Psych Affect: normal affect COVID (Procedure Consent) Procedure Criteria Procedure Criteria: Yes Elective The surgeon/proceduralist and patient have discussed in detail the risk of exposure to and/or potential harm posed by the COVID-19 virus with having a surgery/procedure at this time versus the risk of delaying the surgery/procedure. It is not possible to know either the risk of delaying the surgery or procedure or chance of getting an infection with perfect accuracy, but a joint decision was made between the patient and the surgeon/proceduralist to proceed at this time with the scheduled surgery/procedure as indicated on the consent form. Assessment and Plan Assessment and Plan (1) Chronic renal failure, stage 4 (severe): Status: Chronic Plan - Dr. Aaron Devi MD: 74-year-old female seems to be making steady slow progress regarding her left antecubital space and previously staph infected pseudoaneurysm repair of the brachial artery. She is currently scheduled on October 10, 2020 to have an attempt at the right upper extremity. This would be stage I. She is clearly aware of the technique, benefit, risk, alternatives. She is aware that we would anticipate IV vancomycin being given. She has had an opportunity to ask and have questions answered. We will proceed as noted. Because of her difficulty with staph infection in the left antecubital space I would anticipate the patient arriving an extra hour early and be initiated on vancomycin therapy at the appropriate 1 hour infusion prior to be taken back to surgery. She has had an opportunity ask and have questions answered. She is agreeable to proceeding. Copy: Dr. Ivanna Aguilar and Dr. Hamzah Devi M.D., F.A.C.S. Coding Level of Care Code Off vis,est,level 2 Diagnoses Chronic renal failure, stage 4 (severe) N18.4 I have re-examined the patient. There are no clinical changes since date of exam. Aaron Devi M.D., F.A.C.S.
--- NOTE | 2020-10-10 11:27 | EX.PCM.DISCH ---
Discharge Instructions Procedure Fistula Diet Discharge Diet: Renal Diet Activity Discharge Activity: May Not Drive (for 2-3 days or while taking narcotic pain medications.), May Shower and May Take a Tub Bath (in 5 days.) Lifting Restrictions: 5 pounds Keep extremity elevated above heart level: - (Keep arm elevated above the heart level for 3 days.) Dressing / Incision Call your doctor if your incision/area has: Continuous Slow Oozing, Sudden Increased Bleeding (apply pressure and call your doctor.), Increased Pain/ Swelling, Increased Redness and Foul Smelling Discharge Call your doctor if you observe: Fever of 101 or Higher Suture Line Care: Avoid Pulling/Pushing and Avoid Pinching/Bending Cleanse incision/area with: Keep Dressing Clean & Dry Additional Dressing/Incision Instructions:: Change or remove dressing in one day. May protect with a gauze bandaid. Follow Up Care Please Follow Up With: Aaron Devi MD When: Call [phone] to make an appointment for suture removal and follow up in 1 week. Test Results: Test results from this visit will be discussed in further detail at your follow-up appointment, if applicable. Discharge Plan Admission Attending Provider: Aaron Devi Primary Care Provider: Hamzah Wallis Discharge Orders/Prescriptions Prescriptions: No Action atorvastatin 10 mg tablet 10 mg PO QHS Qty: 90 RF: 3 (DME) blood sugar diagnostic Strip See Rx Instructions .ROUTE .MEDSUPPLY Qty: 10 RF: 0 tramadol 50 mg tablet 50 mg PO DAILY RF: 0 coenzyme Q10 100 mg capsule 50 mg PO DAILY RF: 0 iron, carbonyl 45 MG tablet 65 mg PO DAILY RF: 0 doxazosin [Cardura] 4 mg tablet 4 mg PO BID RF: 0 hydroxychloroquine [Plaquenil] 200 mg tablet 200 mg PO BID RF: 0 isosorbide mononitrate 60 mg tablet extended release 24 hr 60 mg PO LUNCH RF: 0 cyanocobalamin (vitamin B-12) 500 MCG tablet 2,000 mcg PO DAILY@0800 RF: 0 Jeannette-C with Bioflavonoids 1 EACH tablet 1 each PO DAILY RF: 0 calcitriol [Rocaltrol] 0.25 mcg capsule 0.25 mcg PO DAILY RF: 0 amlodipine 10 mg tablet 10 mg PO LUNCH RF: 0 furosemide [Lasix] 40 mg tablet 40 mg PO DAILY RF: 0 valsartan 160 mg tablet 160 mg PO DAILY RF: 0 Januvia 25 mg tablet 25 mg PO DAILY RF: 0 hydralazine 100 mg tablet 100 mg PO TID Qty: 270 RF: 3 carvedilol 25 mg tablet 25 mg PO BID Qty: 180 RF: 3 (DME) pen needle, diabetic [BD Ultra-Fine Orig Pen Needle] 29 gauge x 1/2 needle See Rx Instructions .ROUTE .MEDSUPPLY Qty: 100 RF: 3 (DME) disability placard See Rx Instructions .Route .MEDSUPPLY Qty: 1 RF: 0 omeprazole 20 mg capsule,delayed release(DR/EC) 20 mg PO DAILY Qty: 90 RF: 1
[2020-10-10] MEDS: Bupivacaine Mpf 0.5% 30 ML VIAL (12:30)
[2020-10-10] MEDS: Lidocaine 1% (30 ml sdv) 30 ML Vial (12:30)
[2020-10-10] MEDS: Heparin Injection (Vial) 5,000 UNIT/ML VIAL 5000 UNIT (12:30)
[2020-10-10] MEDS: Protamine Sulfate 50 MG/5 ML Vial IV (13:00)
--- NOTE | 2020-10-10 13:02 | OP.PCM_ITS ---
Problems Associated Problem List Diagnoses (1) Chronic renal failure, stage 4 (severe): Report of Operation Date of Procedure: 10/10/20 Pre-Operative Diagnosis: Stage IV chronic renal insufficiency in need of arteriovenous hemodialysis access Post-Operative Diagnosis: Same Surgery/Procedure Performed:: Stage I right upper extremity brachial to basilic arteriovenous fistula creation Description of Surgical Findings:: Timeout and informed consent was obtained. 74-year-old female was taken to the operating placed upon the table underwent monitored anesthesia care. Because of previous wound infection issues left upper extremity she received a gram of vancomycin intravenously. Right upper extremity was sterilely prepped and draped after ultrasound mapping was performed. 1% lidocaine mixed 50-50 with 0.5% Marcaine was used as a local anesthetic. 8 cc was used. A slightly oblique incision was created sharp blunt dissection was used to identify the basilic vein this was dissected free to a branch point. Then sharp and blunt dissection was used to identify the brachial artery. The patient received 5000 units of heparin intravenously. The vein was ligated distally with hemoclips and then at the branch point was spatulated. Peripheral vascular clamps were placed on the brachial artery and 11 blade used to make an arteriotomy which was extended with Burr scissors. A end-to-side venous to arterial anastomosis was created with running 7-0 Prolene. Widely patent anastomosis was achieved. A single repair suture of 7-0 Prolene was utilized. At the completion there was an excellent cobra head. There was excellent flow and a palpable thrill. Hand was viable with a 3+ radial pulse. The patient received 20 mg of protamine as reversal. The subcutaneous tissue was approximated up to 3-0 Vicryl. Skin edges proximal and running subdermal 4- 0 Monocryl. Steri-Strips Telfa OpSite dressings applied. Specimen none. Drains none. Blood loss minimal. The patient was taken to recovery area in satisfactory addition without apparent complication Aaron Devi M.D., F.A.C.S. Surgeon: Aaron Devi
--- NOTE | 2020-10-10 15:28 | SUR.PHASEII ---
Pressure held for 15 mintues on right AV fistula op site per Dr. Devi orders. Dressing changed per order with telfa and microprore tape. Patient tolerated. Educated on bleeding. Will monitor for 30 minutes more; 1545 will be 30 minutes of monitoring post pressure held.
== END 2020-10-10 16:58 | disposition home or self-care (01) ==
LOC: SDC 07:45 → AC 07:47
PROVIDERS: PCP Internal Medicine; Referring Provider Surgery; Visit Provider Surgery
PROC: (CPT 36821; principal; 2020-10-10 10:45)
DX: I12.9 Hypertensive chronic kidney disease with stage 1 through stage 4 chronic kidney disease, or unspecified chronic kidney disease (principal); N18.4 Chronic kidney disease, stage 4 (severe); I72.1 Aneurysm of artery of upper extremity; Z88.1 Allergy status to other antibiotic agents; Z88.6 Allergy status to analgesic agent; Z88.8 Allergy status to other drugs, medicaments and biological substances; E66.9 Obesity, unspecified; D63.1 Anemia in chronic kidney disease; G47.33 Obstructive sleep apnea (adult) (pediatric); E11.22 Type 2 diabetes mellitus with diabetic chronic kidney disease; Z79.4 Long term (current) use of insulin; M06.9 Rheumatoid arthritis, unspecified
CPT/HCPCS: 01844; 36821; 80048; 82962; 85027; J7030

== ENCOUNTER → 2020-11-10 10:39 | Outpatient (CLI) | payer MEDICARE, SELFPAY ==
[2020-09-28 10:59] VITALS: BMI 32.9
== END ==
PROVIDERS: PCP Internal Medicine; Referring Provider Surgery; Visit Provider Surgery
DX: I72.1 Aneurysm of artery of upper extremity (principal)
CPT/HCPCS: 93931

== ENCOUNTER → 2020-12-15 12:18 | Outpatient (CLI) | payer MEDICARE, SELFPAY ==
[2020-12-14 10:41] LABS: Hematocrit 29.8 % (37-47); Hemoglobin 9.6 g/dL (12.0-15.0); Mean Corp Hgb Conc 32.2 g/dL (32-36); Mean Corpuscular Hgb 29.9 pg (27.0-32.0); Mean Corpuscular Volume 92.8 fL (81-99); Mean Platelet Vol. 10.2 fl (6.2-12.0); Platelet Count 160 K/mm3 (150-450); RBC Distribution Width CV 16.9 % (11.6-14.6); RBC Distribution Width SD 56.7 fl (35.1-43.9); Red Blood Count 3.21 M/mm3 (4.2-5.4); White Blood Count 11.2 K/mm3 (4.4-11.0)
[2020-12-14 11:11] LABS: Anion Gap 9 (5-15); BUN 45 mg/dL (7-18); BUN/Creat Ratio 11.3 RATIO (10-20); Calcium,Total 8.6 mg/dL (8.5-10.1); Chloride 115 mmol/L (98-107); Creatinine, Serum 3.98 mg/dL (0.55-1.02); EST Glomerular Filtration Rate 12 mL/min (>60); Est Glom Filt Rate - Afr Amer 14 mL/min (>60); Glucose 185 mg/dL (74-106); Potassium 3.4 mmol/L (3.5-5.1); Sodium Level 146 mmol/L (136-145)
[2020-12-15 08:23] VITALS: BP 176/52; PULSE 65; RESP 16; TEMP 36.7; O2SAT 96; BMI 34.9
[2020-12-15] MEDS: Vancomycin IV 1,000 MG/200 ML BAG 200 MG IV (09:00)
[2020-12-15 09:36] LABS: Bedside Glucose 154 mg/dL (70-110)
--- NOTE | 2020-12-15 09:45 | PCM.HP.BLA ---
History and Physical Date of Admission: 12/15/20 Intake Visit Reasons: Recheck Fistula Chief Complaint: F/u for Anemia and retacrit therapy. Allergies calcium Allergy (Unknown, Verified 11/29/20 13:41) constipation amiloride Allergy (Verified 11/29/20 13:41) NEEDS FOLLOW-UP azithromycin [From Zithromax Z-Rickey] Allergy (Verified 11/29/20 13:41) NEEDS FOLLOW-UP bumetanide Allergy (Verified 11/29/20 13:41) Unknown chlorthalidone Allergy (Verified 11/29/20 13:41) Unknown clonidine HCl [From Catapres] Allergy (Verified 11/29/20 13:41) Rash diltiazem Allergy (Verified 11/29/20 13:41) Unknown gemfibrozil Allergy (Verified 11/29/20 13:41) Unknown lisinopril Allergy (Verified 11/29/20 13:41) NEEDS FOLLOW-UP losartan [Losartan] Allergy (Verified 11/29/20 13:41) Unknown minoxidil Allergy (Verified 11/29/20 13:41) Unknown nifedipine Allergy (Verified 11/29/20 13:41) Unknown simvastatin [From Zocor] Allergy (Verified 11/29/20 13:41) Unknown triamterene [From Dyazide] Allergy (Verified 11/29/20 13:41) Unknown valdecoxib [From Bextra] Allergy (Verified 11/29/20 13:41) Unknown verapamil [Verapamil] Allergy (Verified 11/29/20 13:41) Unknown atorvastatin Adverse Reaction (Unknown, Verified 11/29/20 13:41) Swelling clonidine [From Catapres] Adverse Reaction (Unknown, Verified 11/29/20 13:41) Unknown esomeprazole [From Nexium] Adverse Reaction (Unknown, Verified 11/29/20 13:41) Swelling metformin [From Glucophage] Adverse Reaction (Unknown, Verified 11/29/20 13:41) Other rosuvastatin [From Crestor] Adverse Reaction (Unknown, Verified 11/29/20 13:41) leg cramps/ swelling atorvastatin calcium [From Lipitor] Adverse Reaction (Verified 11/29/20 13:41) Leg cramps/aching celecoxib [From Celebrex] Adverse Reaction (Verified 11/29/20 13:41) Leg aching hydrochlorothiazide Adverse Reaction (Verified 11/29/20 13:41) Legs aching indapamide Adverse Reaction (Verified 11/29/20 13:41) Other insulin detemir [From Levemir] Adverse Reaction (Verified 11/29/20 13:41) Unknown lansoprazole [From Prevacid] Adverse Reaction (Verified 11/29/20 13:41) Legs aching metformin HCl [From Glucophage] Adverse Reaction (Verified 11/29/20 13:41) Diarrhea pravastatin Adverse Reaction (Verified 11/29/20 13:41) Legs aching rosuvastatin calcium [From Crestor] Adverse Reaction (Verified 11/29/20 13:41) Legs aching Medications atorvastatin 10 mg tablet 10 mg PO QHS #90 tablet 09/29/19 [Rx Confirmed 11/29/20] iron, carbonyl 65 mg PO DAILY 10/06/19 [History Confirmed 11/29/20] tramadol 50 mg tablet 50 mg PO DAILY tablet 11/13/19 [History Confirmed 11/29/20] carvedilol 25 mg tablet 25 mg PO BID #180 tablet 01/13/20 [Rx Confirmed 11/29/20] coenzyme Q10 100 mg capsule 50 mg PO DAILY cap 03/23/20 [History Confirmed 11/29/20] ascorbate calcium-bioflavonoid [Jeannette-C with Bioflavonoids] 1 each PO DAILY 05/03/20 [History Confirmed 11/29/20] cyanocobalamin (vitamin B-12) 2,000 mcg PO DAILY@0800 05/03/20 [History Confirmed 11/29/20] pen needle, diabetic 29 gauge x 1/2 #100 each 05/17/20 [Rx Confirmed 11/29/20] disability placard #1 each 05/27/20 [Rx Confirmed 11/29/20] doxazosin 4 mg tablet 4 mg PO BID tablet 06/13/20 [History Confirmed 11/29/20] isosorbide mononitrate 60 mg tablet,extended release 24 hr 60 mg PO LUNCH tablet 06/13/20 [History Confirmed 11/29/20] hydroxychloroquine 200 mg tablet 200 mg PO BID tab 07/06/20 [History Confirmed 11/29/20] amlodipine 10 mg PO LUNCH 07/28/20 [History Confirmed 11/29/20] calcitriol [Rocaltrol] 0.25 mcg PO DAILY 07/28/20 [History Confirmed 11/29/20] omeprazole 20 mg capsule,delayed release 20 mg PO DAILY #90 cap 09/22/20 [Rx Confirmed 11/29/20] blood sugar diagnostic #10 ea 09/30/20 [History Confirmed 11/29/20] furosemide [Lasix] 40 mg PO DAILY 10/07/20 [History Confirmed 11/29/20] sitagliptin [Januvia] 25 mg PO DAILY 10/07/20 [History Confirmed 11/29/20] valsartan 160 mg PO DAILY 10/07/20 [History Confirmed 11/29/20] blood sugar diagnostic #100 ea 10/17/20 [Rx Confirmed 11/29/20] hydralazine 100 mg tablet 100 mg PO TID #270 tablet 11/02/20 [Rx Confirmed 11/29/20] [facility] Medical History Acute on chronic diastolic (congestive) heart failure Ambulates with cane Anemia Anemia of chronic disease Bilateral edema of lower extremity Blackout Cataract Cataracts, bilateral Chronic diastolic (congestive) heart failure Chronic osteoarthritis Chronic renal failure, stage 4 (severe) CPAP (continuous positive airway pressure) dependence Diverticular disease Easy bruising ESRD (end stage renal disease) Essential (primary) hypertension Eye pressure GERD (gastroesophageal reflux disease) History of CHF (congestive heart failure) History of diverticulosis HLD (hyperlipidemia) HTN (hypertension), malignant Hx of mini strokes Hyperkalemia Hyperparathyroidism Hypersomnolence Intraocular pressure increase Left carotid bruit Morbid obesity Neuropathy Non-smoker KHANG (obstructive sleep apnea) Problem with dialysis access Pseudoaneurysm of arteriovenous dialysis fistula Psoriasis Renal artery atherosclerosis Rheumatoid arthritis Secondary pulmonary arterial hypertension Shortness of breath on exertion Systolic hypertension with cerebrovascular disease Type 2 diabetes mellitus treated with insulin Uncontrolled hypertension Surgical History gallbladder removed History of appendectomy History of arteriovenostomy for renal dialysis (~05/2020) History of colonoscopy S/P breast lumpectomy surgery on finger due to infection Family History Mother Diabetes Heart disease CVA (cerebral vascular accident) Myocardial infarction had [place] in 70s Father Cancer lung, passed at 70 Brother Kidney disease of renal failure at 65. Sister Diabetes Hypertension Mother Diabetes Heart disease CVA (cerebral vascular accident) Myocardial infarction age 70s Father Cancer lung CA Sister Hypertension Diabetes Social History household members: spouse housing: house pets and animals: Yes pets and animals: dog(s) Smoking Status: Never smoker alcohol intake: never substance use type: does not use caffeine: Yes Type: tea Number of servings: 4 what type of physical activity do you participate in: none seatbelt use: always do you feel safe at home: Yes HPI HPI HPI: KAYLI PELAEZ, is a 74 F who presents to the office today for chronic renal failure. Dr. Devi performed stage I right upper extremity brachial to basilic arteriovenous fistula creation on 10/10/20. Patient returns for a follow-up. The fistula appears to be maturing well without any concerns or issues. She is not currently on dialysis. She does note slight amount of coldness to the right hand and some numbness/tingling of the posterior aspect of the thumb. Dr. Aguilar is her family practice doctor. She is a Jehovah Witness. She follows with hematology for chronic anemia and iron supplementation. ROS General General: Yes weight change and fatigue; No appetite, colon cancer, breast cancer or weakness HEENT HEENT: No difficulty swallowing, eye injury, eye surgery, swollen glands or hoarseness Endo Endocrine: Yes diabetes mellitus; No thyroid disease, thyroid cancer, Hair loss, heat intolerance or cold intolerance Skin Skin: No rash or changing moles Musc Musculoskeletal: Yes arthritis and rheumatoid arthritis; No back problems, gout or joint pain Cardio Cardiovascular: Yes heart disease and high blood pressure; No murmur, pacemaker, atrial fibrillation, heart attack, heart stent, palpitations, shortness of breat with exertion or chest pain Psych Psychiatric: No depression, anxiety or hearing voices Resp Respiratory: Yes shortness of breath, Yes sleep apnea, No cough, No COPD, No asthma, No emphysema and No wheezing Gastro Gastrointestinal: No abdominal pain, No nausea or vomiting, Yes diarrhea, Yes constipation, No blood in stool, Yes acid reflux, No hemorrhoids, No ulcers, No gallbladder problem and No black,tarry stools Mert Hematologic: No blood thinners, No blood disorders, No bleeding, Yes anemia and No blood clots Neuro Neurologic: No weakness Exam Const General: cooperative, healthy appearing, comfortable and no acute distress [facility] Head: normal to inspection Ears: hearing grossly normal bilaterally Eyes General: appearance normal, both eyes and all related structures Neck Neck: normal visual inspection Neck mass: No Resp Effort & Inspection: normal respiratory effort Cardio Rate: regular rate Rhythm: regular rhythm GI Inspection: normal to inspection Skin General: no rashes or lesions noted Other: left upper extremity- with dark staining of the skin from previous fistula site and clotting of the fistula. Neuro General: no focal motor deficits and CN's II-XI intact bilaterally Extrem General: normal to inspection Other: right upper extremity AV fistula- excellent pulse, bruit and thrill. Psych Appearance: grossly normal Affect: normal affect COVID (Procedure Consent) Procedure Criteria Procedure Criteria: Yes Elective The surgeon/proceduralist and patient have discussed in detail the risk of exposure to and/or potential harm posed by the COVID-19 virus with having a surgery/procedure at this time versus the risk of delaying the surgery/procedure. It is not possible to know either the risk of delaying the surgery or procedure or chance of getting an infection with perfect accuracy, but a joint decision was made between the patient and the surgeon/proceduralist to proceed at this time with the scheduled surgery/procedure as indicated on the consent form. Assessment and Plan Assessment and Plan (1) Chronic renal failure, stage 4 (severe): Status: Chronic Plan - Deborah SAUCEDO PABrittneyC: Dr. Devi will plan to perform stage II transposition of the right upper extremity brachial to basilic arteriovenous fistula. Procedure details, risks and benefits have been explained. Patient and her have had the opportunity to ask and have questions answered. Patient verbally understands and agrees with the plan. Patient is a Jehovah Witness and request not to receive blood products. She is not on any blood thinners. I have re-examined the patient. There are no clinical changes since date of exam. Aaron Devi M.D., F.A.C.S.
[2020-12-15 10:26] LABS: Bedside Glucose 175 mg/dL (70-110)
--- NOTE | 2020-12-15 10:40 | SUR.PREOP ---
pt c/o dizziness and nausea. snack given. bs 175, b/p 157/44, pulse 73, resp 18, temp 98.7 zofran given will cont to monitor
[2020-12-15 10:43] LABS: Absolute Lymphocyte Count 0.64 X10^3/uL (0.83-4.51); Absolute Neutrophil Count 4.9 X10^3/uL (2.0-7.7); Basophil# 0.03 X10^3/uL; Basophil% 0.4 % (0-1); Eosinophils% 14.9 % (0-5); Hematocrit 28.6 % (37-47); Hemoglobin 9.1 g/dL (12.0-15.0); Lymphocyte # 0.64 X10^3/ul (0.83-4.51); Lymphocyte % 8.7 % (19-41); Mean Corp Hgb Conc 31.8 g/dL (32-36); Mean Corpuscular Volume 94.4 fL (81-99); Mean Platelet Vol. 10.3 fl (6.2-12.0); Monocyte# 0.67 X10^3/uL; Monocyte% 9.1 % (0-10); NRBC Flagged by Analyzer 0 % (0-5); Neutrophil # 4.88 X10^3/uL (2.7-7.7); Platelet Count 141 K/mm3 (150-450); RBC Distribution Width CV 17.2 % (11.6-14.6); RBC Distribution Width SD 58.4 fl (35.1-43.9); Red Blood Count 3.03 M/mm3 (4.2-5.4); White Blood Count 7.4 K/mm3 (4.4-11.0)
[2020-12-15 11:05] LABS: BNP,B-Type NATRIURETIC PEPTIDE 540.1 pg/mL (0-100)
[2020-12-15 11:17] LABS: Anion Gap 10 (5-15); BUN 47 mg/dL (7-18); BUN/Creat Ratio 11.6 RATIO (10-20); Calcium,Total 8.7 mg/dL (8.5-10.1); Chloride 113 mmol/L (98-107); Creatinine, Serum 4.05 mg/dL (0.55-1.02); EST Glomerular Filtration Rate 12 mL/min (>60); Est Glom Filt Rate - Afr Amer 14 mL/min (>60); Estimated Creatinine Clearance 10.52 ml/min; Glucose 185 mg/dL (74-106); Potassium 3.2 mmol/L (3.5-5.1); Sodium Level 144 mmol/L (136-145)
== END ==
PROVIDERS: PCP Internal Medicine; Referring Provider Surgery; Visit Provider Surgery
DX: M79.89 Other specified soft tissue disorders (principal); R06.09 Other forms of dyspnea; Z53.09 Procedure and treatment not carried out because of other contraindication; E11.9 Type 2 diabetes mellitus without complications; D64.9 Anemia, unspecified; K29.70 Gastritis, unspecified, without bleeding; R55 Syncope and collapse; I50.9 Heart failure, unspecified; R06.89 Other abnormalities of breathing; N18.4 Chronic kidney disease, stage 4 (severe); D63.1 Anemia in chronic kidney disease; E61.1 Iron deficiency; E78.5 Hyperlipidemia, unspecified; I13.0 Hypertensive heart and chronic kidney disease with heart failure and stage 1 through stage 4 chronic kidney disease, or unspecified chronic kidney disease
CPT/HCPCS: 36415; 80048; 82962; 83880; 85025; 85027; J7040; J2405

== ENCOUNTER → 2020-12-26 07:48 | Outpatient (CLI) | payer MEDICARE, SELFPAY ==
[2020-12-26 10:19] LABS: Absolute Lymphocyte Count 0.91 X10^3/uL (0.83-4.51); Absolute Neutrophil Count 5.9 X10^3/uL (2.0-7.7); Basophil# 0.08 X10^3/uL; Basophil% 0.6 % (0-1); Eosinophils% 37.9 % (0-5); Hematocrit 28.9 % (37-47); Hemoglobin 9.2 g/dL (12.0-15.0); Lymphocyte # 0.91 X10^3/ul (0.83-4.51); Lymphocyte % 7.3 % (19-41); Mean Corp Hgb Conc 31.8 g/dL (32-36); Mean Corpuscular Hgb 30.1 pg (27.0-32.0); Mean Corpuscular Volume 94.4 fL (81-99); Mean Platelet Vol. 10.4 fl (6.2-12.0); Monocyte# 0.83 X10^3/uL; Monocyte% 6.7 % (0-10); NRBC Flagged by Analyzer 0 % (0-5); Neutrophil # 5.85 X10^3/uL (2.7-7.7); Neutrophil % 47.3 % (47-70); POSITIVE DIFFERENTIAL YES; Platelet Count 158 K/mm3 (150-450); RBC Distribution Width CV 16.9 % (11.6-14.6); RBC Distribution Width SD 57.2 fl (35.1-43.9); Red Blood Count 3.06 M/mm3 (4.2-5.4); White Blood Count 12.4 K/mm3 (4.4-11.0)
[2020-12-26 10:24] LABS: Eosinophil# 4.69 X10^3/uL
[2020-12-26 10:25] LABS: Differential Indicated SCAN CRITERIA MET
[2020-12-26 10:33] LABS: ALB/GLOB Ratio 0.8 RATIO (0.9-2.4); AST(SGOT) 20 U/L (15-37); Alanine Aminotransfer ALT/SGPT 26 U/L (13-56); Albumin, Serum 2.8 g/dL (3.2-5.0); Alkaline Phosphatase 81 U/L (45-117); Anion Gap 11 (5-15); BUN 50 mg/dL (7-18); BUN/Creat Ratio 11.2 RATIO (10-20); Calcium,Total 8.7 mg/dL (8.5-10.1); Chloride 112 mmol/L (98-107); Creatinine, Serum 4.45 mg/dL (0.55-1.02); EST Glomerular Filtration Rate 10 mL/min (>60); Est Glom Filt Rate - Afr Amer 12 mL/min (>60); Globulin 3.4 g/dL (2.2-4.2); Glucose 163 mg/dL (74-106); Potassium 3.2 mmol/L (3.5-5.1); Protein, Total 6.2 g/dL (6.4-8.2); Sodium Level 145 mmol/L (136-145); Uric Acid 11.1 mg/dL (2.6-6.0)
[2020-12-26 10:46] LABS: Differential Comment SCANNED; Hypochromasia 1+; Platelet Estimate ADEQUATE (ADEQ)
[2020-12-27 13:21] LABS: Pathologist Review Reviewed
== END ==
PROVIDERS: PCP Internal Medicine; Referring Provider Internal Medicine Rheumatology; Visit Provider Internal Medicine Rheumatology
DX: L40.59 Other psoriatic arthropathy (principal); M79.7 Fibromyalgia; M17.0 Bilateral primary osteoarthritis of knee; L40.8 Other psoriasis; M65.311 Trigger thumb, right thumb; M47.897 Other spondylosis, lumbosacral region; K21.00 Gastro-esophageal reflux disease with esophagitis, without bleeding; E11.9 Type 2 diabetes mellitus without complications; I10 Essential (primary) hypertension
CPT/HCPCS: 36415; 80053; 84550; 85025

== ENCOUNTER 2021-01-12 08:46 | Day surgery (SDC) | payer MEDICARE, SELFPAY ==
[2021-01-09 09:52] LABS: Hematocrit 31.8 % (37-47); Mean Corp Hgb Conc 31.4 g/dL (32-36); Mean Corpuscular Hgb 29.5 pg (27.0-32.0); Mean Corpuscular Volume 93.8 fL (81-99); Mean Platelet Vol. 9.8 fl (6.2-12.0); Platelet Count 126 K/mm3 (150-450); RBC Distribution Width CV 15.6 % (11.6-14.6); RBC Distribution Width SD 54.2 fl (35.1-43.9); Red Blood Count 3.39 M/mm3 (4.2-5.4); White Blood Count 7.7 K/mm3 (4.4-11.0)
[2021-01-09 10:45] LABS: Anion Gap 9 (5-15); BUN 54 mg/dL (7-18); BUN/Creat Ratio 12.5 RATIO (10-20); Chloride 114 mmol/L (98-107); Creatinine, Serum 4.32 mg/dL (0.55-1.02); EST Glomerular Filtration Rate 11 mL/min (>60); Est Glom Filt Rate - Afr Amer 13 mL/min (>60); Glucose 132 mg/dL (74-106); Potassium 3.7 mmol/L (3.5-5.1); Sodium Level 144 mmol/L (136-145)
[2021-01-12] VITALS (14 sets, daily range): BP systolic 150–183; BP diastolic 44–58; PULSE 62–69; RESP 16–18; TEMP 36.2–36.7; O2SAT 90–99; BMI 32.3
[2021-01-12 10:01] LABS: Bedside Glucose 186 mg/dL (70-110)
[2021-01-12] MEDS: Vancomycin IV 1,000 MG/200 ML BAG 200 MG IV (10:33)
--- NOTE | 2021-01-12 11:34 | HP.PCM_ITS ---
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: No Is patient in pain?: No Allergies calcium Allergy (Unknown, Verified 01/03/21:) constipation amiloride Allergy (Verified 01/03/21:) NEEDS FOLLOW-UP azithromycin [From Zithromax Z-Rickey] Allergy (Verified 01/03/21:) NEEDS FOLLOW-UP bumetanide Allergy (Verified 01/03/21:) Unknown chlorthalidone Allergy (Verified 01/03/21) Unknown clonidine HCl [From Catapres] Allergy (Verified 01/03/21:) Rash diltiazem Allergy (Verified 01/03/21) Unknown gemfibrozil Allergy (Verified 01/03/21) Unknown lisinopril Allergy (Verified 01/03/21:) NEEDS FOLLOW-UP losartan [Losartan] Allergy (Verified 01/03/21:) Unknown minoxidil Allergy (Verified 01/03/21:) Unknown nifedipine Allergy (Verified 01/03/21:) Unknown simvastatin [From Zocor] Allergy (Verified 01/03/21:) Unknown triamterene [From Dyazide] Allergy (Verified 01/03/21:) Unknown valdecoxib [From Bextra] Allergy (Verified 01/03/21:) Unknown verapamil [Verapamil] Allergy (Verified 01/03/21 13:) Unknown atorvastatin Adverse Reaction (Unknown, Verified 01/03/21:) Swelling clonidine [From Catapres] Adverse Reaction (Unknown, Verified 01/03/21:) Unknown esomeprazole [From Nexium] Adverse Reaction (Unknown, Verified 01/03/21 13:) Swelling metformin [From Glucophage] Adverse Reaction (Unknown, Verified 01/03/21:) Other rosuvastatin [From Crestor] Adverse Reaction (Unknown, Verified 01/03/21:) leg cramps/ swelling atorvastatin calcium [From Lipitor] Adverse Reaction (Verified 01/03/21 13:31) Leg cramps/aching celecoxib [From Celebrex] Adverse Reaction (Verified 01/03/21 13:31) Leg aching hydrochlorothiazide Adverse Reaction (Verified 01/03/21 13:31) Legs aching indapamide Adverse Reaction (Verified 01/03/21 13:31) Other insulin detemir [From Levemir] Adverse Reaction (Verified 01/03/21 13:31) Unknown lansoprazole [From Prevacid] Adverse Reaction (Verified 01/03/21 13:31) Legs aching metformin HCl [From Glucophage] Adverse Reaction (Verified 01/03/21 13:31) Diarrhea pravastatin Adverse Reaction (Verified 01/03/21 13:31) Legs aching rosuvastatin calcium [From Crestor] Adverse Reaction (Verified 01/03/21 13:31) Legs aching Medications atorvastatin 10 mg tablet 10 mg PO QHS #90 tablet 09/29/19 [Rx Confirmed 01/03/21] iron, carbonyl 65 mg PO DAILY 10/06/19 [History Confirmed 01/03/21] tramadol 50 mg tablet 50 mg PO DAILY tablet 11/13/19 [History Confirmed 01/03/21] coenzyme Q10 100 mg capsule 50 mg PO DAILY cap 03/23/20 [History Confirmed 01/03/21] ascorbate calcium-bioflavonoid [Jeannette-C with Bioflavonoids] 1 each PO DAILY 05/03/20 [History Confirmed 01/03/21] cyanocobalamin (vitamin B-12) 2,000 mcg PO DAILY@0800 05/03/20 [History Confirmed 01/03/21] pen needle, diabetic 29 gauge x 1/2 #100 each 05/17/20 [Rx Confirmed 01/03/21] disability placard #1 each 05/27/20 [Rx Confirmed 01/03/21] isosorbide mononitrate 60 mg tablet,extended release 24 hr 60 mg PO LUNCH tablet 06/13/20 [History Confirmed 01/03/21] hydroxychloroquine 200 mg tablet 200 mg PO BID tab 07/06/20 [History Confirmed 01/03/21] amlodipine 10 mg PO LUNCH 07/28/20 [History Confirmed 01/03/21] calcitriol [Rocaltrol] 0.25 mcg PO DAILY 07/28/20 [History Confirmed 01/03/21] omeprazole 20 mg capsule,delayed release 20 mg PO DAILY #90 cap 09/22/20 [Rx Confirmed 01/03/21] blood sugar diagnostic #10 ea 09/30/20 [History Confirmed 01/03/21] valsartan 160 mg PO DAILY 10/07/20 [History Confirmed 01/03/21] blood sugar diagnostic #100 ea 10/17/20 [Rx Confirmed 01/03/21] hydralazine 100 mg tablet 100 mg PO TID #270 tablet 11/02/20 [Rx Confirmed 01/03] sodium bicarbonate 650 mg PO BID 12/08/20 [History Confirmed 01/03/21] furosemide 40 mg tablet 40 mg PO BID tab 12/15/20 [History Confirmed 01/03/21] potassium chloride 10 mEq capsule,extended release 10 meq PO DAILY #30 cap 12/15/20 [Rx Confirmed 01/03/21] carvedilol 25 mg tablet 25 mg PO BID #180 tablet 12/29/20 [Rx Confirmed 01/03/21] sitagliptin 25 mg tablet 25 mg PO DAILY #90 tab 12/29/20 [Rx Confirmed 01/03/21] doxazosin 4 mg tablet 8 mg PO BID tab 01/03/21 [History Confirmed 01/03/21] [facility] Medical History (Updated 01/03/21 @ 15:45 by Deborah SAUCEDO, PA-C) (HFpEF) heart failure with preserved ejection fraction Acute on chronic diastolic (congestive) heart failure Ambulates with cane Anemia Anemia Anemia of chronic disease Bilateral edema of lower extremity Blackout Cataract Cataracts, bilateral Chronic diastolic (congestive) heart failure Chronic osteoarthritis Chronic renal failure, stage 4 (severe) CPAP (continuous positive airway pressure) dependence Diverticular disease Easy bruising ESRD (end stage renal disease) Essential (primary) hypertension Eye pressure Flatulence, eructation and gas pain Gastritis determined by endoscopy GERD (gastroesophageal reflux disease) GI bleed History of CHF (congestive heart failure) History of diverticulosis HLD (hyperlipidemia) HTN (hypertension), malignant Hx of mini strokes Hyperkalemia Hyperparathyroidism Hypersomnolence Intraocular pressure increase Left carotid bruit Morbid obesity Neuropathy Non-smoker KHANG (obstructive sleep apnea) Problem with dialysis access Pseudoaneurysm of arteriovenous dialysis fistula Psoriasis Renal artery atherosclerosis Rheumatoid arthritis Secondary pulmonary arterial hypertension Shortness of breath on exertion Syncope Systolic hypertension with cerebrovascular disease Type 2 diabetes mellitus treated with insulin Uncontrolled hypertension Surgical History gallbladder removed History of appendectomy History of arteriovenostomy for renal dialysis (~05/2020) History of arteriovenous graft History of colonoscopy S/P breast lumpectomy surgery on finger due to infection Family History Mother Diabetes Heart disease CVA (cerebral vascular accident) Myocardial infarction had [place] in 70s Father Cancer lung, passed at 70 Brother Kidney disease of renal failure at 65. Sister Diabetes Hypertension Mother Diabetes Heart disease CVA (cerebral vascular accident) Myocardial infarction age 70s Father Cancer lung CA Sister Hypertension Diabetes Social History household members: spouse housing: house pets and animals: Yes pets and animals: dog(s) Smoking Status: Never smoker alcohol intake: never substance use type: does not use caffeine: Yes Type: tea Number of servings: 4 what type of physical activity do you participate in: none seatbelt use: always do you feel safe at home: Yes HPI HPI HPI: KAYLI PELAEZ, is a 74 F who presents to the office today for chronic renal failure. Dr. Devi performed stage I right upper extremity brachial to basilic arteriovenous fistula creation on 10/10/20. Patient returns for a follow- up. The fistula appears to be maturing well without any concerns or issues. She is not currently on dialysis. She does note slight amount of coldness to the ri ght hand and some numbness/tingling of the posterior aspect of the thumb. Dr. Aguilar is her senior account representative. She is a Jehovah Witness. She follows with hematology for chronic anemia and iron supplementation. She presents for an update history and physical. She was previously scheduled for stage II and was canceled the same day due to CHF exacerbation. Patient has been cleared for cardiology, internal medication, and nephrology for the upcoming procedure. Nephrology did increase her blood pressure medication, Cardura from 4 mg to 8 mg BID. She denies any improvement in her blood pressure readings. She currently denies chest pain or shortness of breath. She notes feeling back to her baseline at this time. ROS General General: Yes weight change and fatigue; No appetite, colon cancer, breast cancer or weakness HEENT HEENT: No difficulty swallowing, eye injury, eye surgery, swollen glands or hoarseness Endo Endocrine: Yes diabetes mellitus; No thyroid disease, thyroid cancer, Hair loss, heat intolerance or cold intolerance Skin Skin: No rash or changing moles Musc Musculoskeletal: Yes arthritis and rheumatoid arthritis; No back problems, gout or joint pain Cardio Cardiovascular: Yes heart disease and high blood pressure; No murmur, pacemaker, atrial fibrillation, heart attack, heart stent, palpitations, shortness of breat with exertion or chest pain Psych Psychiatric: No depression, anxiety or hearing voices Resp Respiratory: Yes shortness of breath, Yes sleep apnea, No cough, No COPD, No asthma, No emphysema and No wheezing Gastro Gastrointestinal: No abdominal pain, No nausea or vomiting, Yes diarrhea, Yes constipation, No blood in stool, Yes acid reflux, No hemorrhoids, No ulcers, No gallbladder problem and No black,tarry stools Mert Hematologic: No blood thinners, No blood disorders, No bleeding, Yes anemia and No blood clots Neuro Neurologic: No weakness Exam Const General: cooperative, healthy appearing, comfortable and no acute distress HENMT Head: normal to inspection Eyes General: appearance normal, both eyes and all related structures Neck Neck: normal visual inspection Neck mass: No Resp Effort & Inspection: normal respiratory effort Auscultation: clear to auscultation bilaterally Cardio Rate: regular rate Rhythm: regular rhythm GI Inspection: normal to inspection Palpation: soft Auscultation: normal bowel sounds Skin General: no rashes or lesions noted Neuro General: no focal motor deficits and CN's II-XI intact bilaterally Extrem General: normal to inspection Psych Appearance: grossly normal Affect: normal affect COVID (Procedure Consent) Procedure Criteria Procedure Criteria: Yes Elective The surgeon/proceduralist and patient have discussed in detail the risk of exposure to and/or potential harm posed by the COVID-19 virus with having a surgery/procedure at this time versus the risk of delaying the surgery/procedure. It is not possible to know either the risk of delaying the surgery or procedure or chance of getting an infection with perfect accuracy, but a joint decision was made between the patient and the surgeon/proceduralist to proceed at this time with the scheduled surgery/procedure as indicated on the consent form. Assessment and Plan Assessment and Plan (1) Chronic renal failure, stage 4 (severe): Status: Acute Plan - Deborah SAUCEDO PA-C: Dr. Devi will plan to perform stage II transposition of the right upper extremity brachial to basilic arteriovenous fistula. Procedure details, risks and benefits have been explained. Patient and her have had the opportunity to ask and have questions answered. Patient verbally understands and agrees with the plan. Patient is a Jehovah Witness and request not to receive blood products. She is not on any blood thinners. Patient will need to present to surgery earlier than normal due to need for Vanco. Anesthesia may need to utilize Nitropaste the day of the procedure to assist with blood pressure. I have re-examined the patient. There are no clinical changes since date of exam. Aaron Devi M.D., F.A.C.S.
--- NOTE | 2021-01-12 11:49 | DCINST_ITS ---
Discharge Instructions Procedure Fistula Diet Discharge Diet: Renal Diet Activity Discharge Activity: May Not Drive (for 2-3 days or while taking narcotic pain medications.), May Shower and May Take a Tub Bath (in 5 days.) Lifting Restrictions: 5 pounds Keep extremity elevated above heart level: - (Keep arm elevated above the heart level for 3 days.) Dressing / Incision Call your doctor if your incision/area has: Continuous Slow Oozing, Sudden Increased Bleeding (apply pressure and call your doctor.), Increased Pain/ Swelling, Increased Redness and Foul Smelling Discharge Call your doctor if you observe: Fever of 101 or Higher Suture Line Care: Avoid Pulling/Pushing and Avoid Pinching/Bending Cleanse incision/area with: Keep Dressing Clean & Dry Additional Dressing/Incision Instructions:: Change or remove dressing in one day. May protect with a gauze bandaid. Follow Up Care Please Follow Up With: Aaron Devi MD When: Call [phone] to make an appointment for suture removal and follow up in 1 week. Test Results: Elevate your right arm for comfort and to limit swelling. Keep the elastic wrap in place for 2 days then you may remove it. Leave the Steri- Strips on for an additional week. Please keep the incision clean and dry for 4 days or longer if there is any oozing. Contact the office please for follow-up appointment in 7 to 10 days. Discharge Plan Admission Attending Provider: Aaron Devi Primary Care Provider: Hamzah Wallis Discharge Orders/Prescriptions Prescriptions: No Action atorvastatin 10 mg tablet 10 mg PO QHS Qty: 90 RF: 3 (DME) blood sugar diagnostic Strip See Rx Instructions .ROUTE .MEDSUPPLY Qty: 10 RF: 0 doxazosin [Cardura] 4 mg tablet 4 mg PO BID RF: 0 tramadol 50 mg tablet 50 mg PO DAILY RF: 0 coenzyme Q10 100 mg capsule 50 mg PO DAILY RF: 0 iron, carbonyl 45 MG tablet 65 mg PO DAILY RF: 0 hydroxychloroquine [Plaquenil] 200 mg tablet 200 mg PO BID RF: 0 isosorbide mononitrate 60 mg tablet extended release 24 hr 60 mg PO LUNCH RF: 0 cyanocobalamin (vitamin B-12) 500 MCG tablet 2,000 mcg PO DAILY@0800 RF: 0 Jeannette-C with Bioflavonoids 1 EACH tablet 1 each PO DAILY RF: 0 calcitriol [Rocaltrol] 0.25 mcg capsule 0.25 mcg PO DAILY RF: 0 amlodipine 10 mg tablet 10 mg PO LUNCH RF: 0 valsartan 160 mg tablet 160 mg PO DAILY RF: 0 sodium bicarbonate 650 mg Tablet 650 mg PO BID RF: 0 (DME) pen needle, diabetic [BD Ultra-Fine Orig Pen Needle] 29 gauge x 1/2 needle See Rx Instructions .ROUTE .MEDSUPPLY Qty: 100 RF: 3 (DME) disability placard See Rx Instructions .Route .MEDSUPPLY Qty: 1 RF: 0 omeprazole 20 mg capsule,delayed release(DR/EC) 20 mg PO DAILY Qty: 90 RF: 1 (DME) OneTouch Ultra Test Strip See Rx Instructions .ROUTE .MEDSUPPLY Qty: 100 RF: 3 hydralazine 100 mg tablet 100 mg PO TID Qty: 270 RF: 3 furosemide [Lasix] 40 mg tablet 40 mg PO BID RF: 0 carvedilol 25 mg tablet 25 mg PO BID Qty: 180 RF: 3 Januvia 25 mg tablet 25 mg PO DAILY Qty: 90 RF: 1 potassium chloride 10 mEq capsule, extended release 20 meq PO DAILY Qty: 180 RF: 3
[2021-01-12] MEDS: Lidocaine 1% (30 ml sdv) 30 ML Vial (12:18)
[2021-01-12] MEDS: Bupivacaine Mpf 0.5% 30 ML VIAL (12:18)
[2021-01-12] MEDS: Lidocaine 0.5% (50 ml) 50 ML Vial (12:18)
[2021-01-12] MEDS: Heparin Injection (Vial) 5,000 UNIT/ML VIAL 5000 UNIT (12:18)
--- NOTE | 2021-01-12 14:15 | OP.PCM_ITS ---
Problems Associated Problem List Diagnoses (1) Chronic renal failure, stage 4 (severe): Report of Operation Date of Procedure: 01/12/21 Pre-Operative Diagnosis: Stage IV chronic renal insufficiency Post-Operative Diagnosis: Same Surgery/Procedure Performed:: Stage II transposition right upper extremity basilic vein to brachial artery arteriovenous hemodialysis fistula creation Description of Surgical Findings:: Timeout informed consent was obtained. 75-year-old female was taken to the operating place upon the table where monitored anesthesia care. Throughout the procedure 32 cc of 1% lidocaine mixed 50-50 with 0.5% Marcaine and 32 cc of half percent lidocaine was used as local anesthetic. The right upper extremity was sterilely prepped and draped. The patient did receive vancomycin preoperatively because of her previous history of MRSA. Ultrasound mapping was performed. Local was instilled an oblique longitudinal incision made directly over the basilic vein it was quite deeply located. Tedious sharp and blunt dissection was required to identify the vein. Side branches were secured with 3-0 Vicryl ligatures and 4-0 Vicryl ligatures as well as hemoclips. Tediously the vein was dissected up to the proximal upper arm area. It was of nice caliber. [place] that I had adequate length measured the distance with 2 hemostats and a suture and then made a curvilinear tracking more on the dorsal aspect of the right upper arm. At the distal location I did sharp and blunt dissection to identify the brachial artery and it was circumferentially dissected free. The vein was ligated distally with 3-0 Vicryl suture ligature and then a tunneler was placed in the vein was secured to the tunneler and placed in its much more superficial position.. To have a good positional lie. 11 blade was used to make an arteriotomy which was extended with Burr scissors. End-to-side venous to arterial anastomosis was created with running 7-0 Prolene. Very nice anastomosis was achieved with instant hemostasis. There was a good pulse and thrill. The hand was inspected. Had a brief period of vasospasm but then pinked up nicely. Doppler signals were triphasic at the radial and biphasic the ulnar. And appear to be nicely viable the fistula itself functioning very well. The patient had received 9000 units of heparin prior to arterial clamping. At the completion in aliquots the patient received a total of 40 mg of protamine as reversal. The wound was closed in layers with deep soft tissue pleating sutures of 3-0 Vicryl. Subdermal tissues approximated the same. Skin edges approximated running subicular 4 Monocryl. Steri-Strips Telfa soft roll Dameon wrap applied. Sponge and instrument and needle counts were reported to the surgeon to be correct. Specimens none. Drains none. Blood loss 150 cc. She was taken to the recovery area in satisfactory addition without apparent complication Aaron Devi M.D., F.A.C.S. Surgeon: Aaron Devi Type of Anesthesia: Local MAC Anesthesiologist: Silvio Maher
[2021-01-12] MEDS: Acetaminophen 325 MG Tablet 650 MG PO (16:00)
== END 2021-01-12 17:40 | disposition home or self-care (01) ==
LOC: SDC 08:46 → AC 08:47
PROVIDERS: PCP Internal Medicine; Referring Provider Surgery; Visit Provider Surgery
PROC: (CPT 36819; principal; 2021-01-12 11:45)
DX: I13.0 Hypertensive heart and chronic kidney disease with heart failure and stage 1 through stage 4 chronic kidney disease, or unspecified chronic kidney disease (principal); I50.33 Acute on chronic diastolic (congestive) heart failure; N18.4 Chronic kidney disease, stage 4 (severe); E11.22 Type 2 diabetes mellitus with diabetic chronic kidney disease; G47.33 Obstructive sleep apnea (adult) (pediatric); E78.5 Hyperlipidemia, unspecified; K21.9 Gastro-esophageal reflux disease without esophagitis; D63.1 Anemia in chronic kidney disease; Z88.1 Allergy status to other antibiotic agents; Z88.6 Allergy status to analgesic agent; Z88.8 Allergy status to other drugs, medicaments and biological substances; Z86.14 Personal history of Methicillin resistant Staphylococcus aureus infection
CPT/HCPCS: 01844; 36819; 36415; 80048; 82962; 85025; 85027; J7040; J2405

== ENCOUNTER → 2021-02-23 09:31 | Outpatient (CLI) | payer MEDICARE, SELFPAY ==
[2021-02-23 13:04] LABS: Hepatitis B Surface Antigen Non-Reactive (Nonreactive)
== END ==
PROVIDERS: PCP Internal Medicine; Visit Provider Internal Medicine Nephrology
DX: N18.6 End stage renal disease (principal); N25.81 Secondary hyperparathyroidism of renal origin
CPT/HCPCS: 36415; 87340

== ENCOUNTER 2021-03-09 09:11 | Outpatient (CLI) | payer MEDICARE, SELFPAY ==
--- NOTE | 2021-03-09 09:36 | RAD_ITS ---
STUDY: X-RAY CHEST REASON FOR EXAM: Female, 75 years old. ESRD TECHNIQUE: Frontal and lateral views COMPARISON: 04/08/2020 FINDINGS: The lungs are expanded. Bilateral interstitial densities. Possible patchy basilar infiltrates. Cardiomegaly. Normal mediastinum and everardo. Normal visualized pulmonary arteries. Calcified aortic arch and descending thoracic aorta. Degenerative changes of the thoracic spine. Normal visualized ribs, clavicles, and shoulders. There is no demonstrated abnormality of the visualized soft tissue structures of the upper abdomen. RAD/Chest PA and Lateral IMPRESSION: Bilateral interstitial densities. Possible patchy basilar infiltrates. Cardiomegaly. Electronically Signed: Gregg Merrill DO at 17:02 EST Tel [phone], Service support ,
[2021-03-09 10:42] LABS: Hepatitis B Surface Antibody Non-Reactive
[2021-03-11 10:04] LABS: Hepatitis B Core Ab Total Negative (Negative)
== END 2021-03-09 23:59 | disposition short-term general hospital (02) ==
LOC: RAD 09:13
PROVIDERS: PCP Internal Medicine; Referring Provider Internal Medicine Nephrology; Visit Provider Internal Medicine Nephrology
DX: N18.6 End stage renal disease (principal)
CPT/HCPCS: 36415; 71046; 86704; 86706

== ENCOUNTER 2021-03-30 14:56 | Outpatient (CLI) | payer MEDICARE, SELFPAY ==
[2021-03-30 15:20] LABS: Absolute Lymphocyte Count 0.82 X10^3/uL (0.83-4.51); Absolute Neutrophil Count 3.7 X10^3/uL (2.0-7.7); Basophil# 0.06 X10^3/uL; Basophil% 0.8 % (0-1); Eosinophils% 27.7 % (0-5); Hemoglobin 9.6 g/dL (12.0-15.0); Lymphocyte # 0.82 X10^3/ul (0.83-4.51); Lymphocyte % 10.8 % (19-41); Mean Corpuscular Hgb 30.9 pg (27.0-32.0); Mean Corpuscular Volume 96.5 fL (81-99); Mean Platelet Vol. 9.9 fl (6.2-12.0); Monocyte# 0.85 X10^3/uL; Monocyte% 11.2 % (0-10); NRBC Flagged by Analyzer 0 % (0-5); Neutrophil # 3.74 X10^3/uL (2.7-7.7); Neutrophil % 49.1 % (47-70); POSITIVE DIFFERENTIAL YES; Platelet Count 142 K/mm3 (150-450); RBC Distribution Width CV 15.1 % (11.6-14.6); RBC Distribution Width SD 53.3 fl (35.1-43.9); Red Blood Count 3.11 M/mm3 (4.2-5.4); White Blood Count 7.6 K/mm3 (4.4-11.0)
[2021-03-30 15:43] LABS: Differential Indicated SCAN CRITERIA MET; Eosinophil# 2.11 X10^3/uL
[2021-03-30 15:45] LABS: Anisocytosis RARE; Platelet Estimate ADEQUATE (ADEQ); Red Cell Morphology N CHROM NORMAL (NORM C&C)
[2021-03-30 15:46] LABS: Macrocytosis RARE
[2021-03-30 15:47] LABS: Anion Gap 7 (5-15); BUN 20 mg/dL (7-18); BUN/Creat Ratio 5.3 RATIO (10-20); Calcium,Total 9.1 mg/dL (8.5-10.1); Chloride 107 mmol/L (98-107); Creatinine, Serum 3.74 mg/dL (0.55-1.02); EST Glomerular Filtration Rate 13 mL/min (>60); Est Glom Filt Rate - Afr Amer 15 mL/min (>60); Glucose 148 mg/dL (74-106); Potassium 3.2 mmol/L (3.5-5.1); Sodium Level 141 mmol/L (136-145)
== END 2021-03-30 23:59 | disposition short-term general hospital (02) ==
LOC: PAVLAB 14:57
PROVIDERS: PCP Internal Medicine; Referring Provider Physician Assistant; Visit Provider Physician Assistant
DX: N18.5 Chronic kidney disease, stage 5 (principal)
CPT/HCPCS: 36415; 80048; 85025

== ENCOUNTER 2021-04-06 08:56 | Day surgery (SDC) | payer MEDICARE, SELFPAY ==
[2021-04-05 08:00] VITALS: BMI 30.5
--- NOTE | 2021-04-06 10:19 | PCM.HP.BLA ---
History and Physical Date of Admission: 04/06/21 Intake Visit Reasons: F/U FISTULA CANNULATION Chief Complaint: recheck fistula Director Supply Required: No Is patient in pain?: No Allergies calcium Allergy (Unknown, Verified 03/30/21 14:34) constipation amiloride Allergy (Verified 03/30/21 14:34) NEEDS FOLLOW-UP azithromycin [From Zithromax Z-Rickey] Allergy (Verified 03/30/21 14:34) NEEDS FOLLOW-UP bumetanide Allergy (Verified 03/30/21 14:34) Unknown chlorthalidone Allergy (Verified 03/30/21 14:34) Unknown clonidine HCl [From Catapres] Allergy (Verified 03/30/21 14:34) Rash diltiazem Allergy (Verified 03/30/21 14:34) Unknown gemfibrozil Allergy (Verified 03/30/21 14:34) Unknown lisinopril Allergy (Verified 03/30/21 14:34) NEEDS FOLLOW-UP losartan [Losartan] Allergy (Verified 03/30/21 14:34) Unknown minoxidil Allergy (Verified 03/30/21 14:34) Unknown nifedipine Allergy (Verified 03/30/21 14:34) Unknown simvastatin [From Zocor] Allergy (Verified 03/30/21 14:34) Unknown triamterene [From Dyazide] Allergy (Verified 03/30/21 14:34) Unknown valdecoxib [From Bextra] Allergy (Verified 03/30/21 14:34) Unknown verapamil [Verapamil] Allergy (Verified 03/30/21 14:34) Unknown atorvastatin Adverse Reaction (Unknown, Verified 03/30/21 14:34) Swelling clonidine [From Catapres] Adverse Reaction (Unknown, Verified 03/30/21 14:34) Unknown esomeprazole [From Nexium] Adverse Reaction (Unknown, Verified 03/30/21 14:34) Swelling metformin [From Glucophage] Adverse Reaction (Unknown, Verified 03/30/21 14:34) Other rosuvastatin [From Crestor] Adverse Reaction (Unknown, Verified 03/30/21 14:34) leg cramps/ swelling atorvastatin calcium [From Lipitor] Adverse Reaction (Verified 03/30/21 14:34) Leg cramps/aching celecoxib [From Celebrex] Adverse Reaction (Verified 03/30/21 14:34) Leg aching hydrochlorothiazide Adverse Reaction (Verified 03/30/21 14:34) Legs aching indapamide Adverse Reaction (Verified 03/30/21 14:34) Other insulin detemir [From Levemir] Adverse Reaction (Verified 03/30/21 14:34) Unknown lansoprazole [From Prevacid] Adverse Reaction (Verified 03/30/21 14:34) Legs aching metformin HCl [From Glucophage] Adverse Reaction (Verified 03/30/21 14:34) Diarrhea pravastatin Adverse Reaction (Verified 03/30/21 14:34) Legs aching rosuvastatin calcium [From Crestor] Adverse Reaction (Verified 03/30/21 14:34) Legs aching Medications atorvastatin 10 mg tablet 10 mg PO QHS #90 tablet 09/29/19 [Rx Confirmed 03/30/21] iron, carbonyl 65 mg PO DAILY 10/06/19 [History Confirmed 03/30/21] tramadol 50 mg tablet 50 mg PO DAILY tablet 11/13/19 [History Confirmed 03/30/21] coenzyme Q10 100 mg capsule 50 mg PO DAILY cap 03/23/20 [History Confirmed 03/30/21] Jeannette-C with Bioflavonoids 1 each PO DAILY 05/03/20 [History Confirmed 03/30/21] cyanocobalamin (vitamin B-12) 2,000 mcg PO DAILY@0800 05/03/20 [History Confirmed 03/30/21] pen needle, diabetic 29 gauge x 1/2 #100 each 05/17/20 [Rx Confirmed 03/30/21] disability placard #1 each 05/27/20 [Rx Confirmed 03/30/21] isosorbide mononitrate 60 mg tablet,extended release 24 hr 60 mg PO LUNCH tablet 06/13/20 [History Confirmed 03/30/21] hydroxychloroquine 200 mg tablet 200 mg PO BID tab 07/06/20 [History Confirmed 03/30/21] amlodipine 10 mg PO LUNCH 07/28/20 [History Confirmed 03/30/21] calcitriol [Rocaltrol] 0.25 mcg PO DAILY 07/28/20 [History Confirmed 03/30/21] blood sugar diagnostic #10 ea 09/30/20 [History Confirmed 03/30/21] blood sugar diagnostic #100 ea 10/17/20 [Rx Confirmed 03/30/21] hydralazine 100 mg tablet 100 mg PO TID #270 tablet 11/02/20 [Rx Confirmed 03/30/21] sodium bicarbonate 650 mg PO BID 12/08/20 [History Confirmed 03/30/21] furosemide 40 mg tablet 40 mg PO BID tab 12/15/20 [History Confirmed 03/30/21] carvedilol 25 mg tablet 25 mg PO BID #180 tablet 12/29/20 [Rx Confirmed 03/30/21] sitagliptin 25 mg tablet 25 mg PO DAILY #90 tab 12/29/20 [Rx Confirmed 03/30/21] doxazosin 4 mg tablet 4 mg PO BID tab 01/03/21 [History Confirmed 03/30/21] potassium chloride 10 mEq capsule,extended release 20 meq PO DAILY #180 cap 01/09/21 [Rx Confirmed 03/30/21] omeprazole 20 mg capsule,delayed release 20 mg PO DAILY #90 cap 03/17/21 [Rx Confirmed 03/30/21] valsartan 160 mg tablet 160 mg PO DAILY #90 tab 03/28/21 [Rx Confirmed 03/30/21] Is last menstrual period known: No Post menopausal: Yes Patient : No PFSH Medical History (Updated 03/30/21 @ 14:50 by Deborah SAUCEDO PABrittneyC) (HFpEF) heart failure with preserved ejection fraction Acute on chronic diastolic (congestive) heart failure Ambulates with cane Anemia Anemia Anemia of chronic disease Bilateral edema of lower extremity Blackout Cardiology follow-up encounter Cataract Cataracts, bilateral Chronic diastolic (congestive) heart failure Chronic osteoarthritis Chronic renal failure, stage 4 (severe) Chronic renal failure, stage 5 CPAP (continuous positive airway pressure) dependence Dietary restriction Difficulty swallowing Diverticular disease Easy bruising ESRD (end stage renal disease) Essential (primary) hypertension Eye pressure Flatulence, eructation and gas pain Gastric reflux Gastritis determined by endoscopy GERD (gastroesophageal reflux disease) GI bleed High cholesterol History of CHF (congestive heart failure) History of diverticulosis History of echocardiogram History of edema History of pain when walking History of renal disease History of stress test HLD (hyperlipidemia) HTN (hypertension), malignant Hx of mini strokes Hyperkalemia Hyperparathyroidism Hypersomnolence Intraocular pressure increase Left carotid bruit Leg cramps Morbid obesity Neuropathy Non-smoker KHANG (obstructive sleep apnea) Problem with dialysis access Pseudoaneurysm of arteriovenous dialysis fistula Psoriasis Renal artery atherosclerosis Rheumatoid arthritis Secondary pulmonary arterial hypertension Shortness of breath on exertion Shortness of breath on exertion Syncope Systolic hypertension with cerebrovascular disease TIA (transient ischemic attack) Type 2 diabetes mellitus treated with insulin Uncontrolled hypertension Surgical History gallbladder removed History of appendectomy History of arteriovenostomy for renal dialysis (~05/2020) History of arteriovenous graft History of colonoscopy S/P breast lumpectomy surgery on finger due to infection Family History Mother Diabetes Heart disease CVA (cerebral vascular accident) Myocardial infarction had OR in 70s Father Cancer lung, passed at 70 Brother Kidney disease of renal failure at 65. Sister Diabetes Hypertension Mother Diabetes Heart disease CVA (cerebral vascular accident) Myocardial infarction age 70s Father Cancer lung CA Sister Hypertension Diabetes Social History household members: spouse housing: house pets and animals: Yes pets and animals: dog(s) Smoking Status: Never smoker alcohol intake: never substance use type: does not use caffeine: Yes Type: tea Number of servings: 4 what type of physical activity do you participate in: none seatbelt use: always do you feel safe at home: Yes HPI HPI HPI: KAYLI PELAEZ, is a 75 F who presents to the office today for difficulty with cannulation. Patient started dialysis approximately 2 weeks ago. She has noted 2 out of the 6 times she was unable to cannulate at all. she notes the other 4 times they have had difficulty with access. She has been infiltrated the very first time of access. She has a right upper extremity transposed brachial basilic arteriovenous fistula. She denies any recent hospitalizations or illnesses. ROS General General: Yes weight change and fatigue; No appetite, colon cancer, breast cancer or weakness HEENT HEENT: No difficulty swallowing, eye injury, eye surgery, swollen glands or hoarseness Endo Endocrine: Yes diabetes mellitus; No thyroid disease, thyroid cancer, Hair loss, heat intolerance or cold intolerance Skin Skin: No rash or changing moles Musc Musculoskeletal: Yes arthritis and rheumatoid arthritis; No back problems, gout or joint pain Cardio Cardiovascular: Yes heart disease and high blood pressure; No murmur, pacemaker, atrial fibrillation, heart attack, heart stent, palpitations, shortness of breat with exertion or chest pain Psych Psychiatric: No depression, anxiety or hearing voices Resp Respiratory: Yes shortness of breath, Yes sleep apnea, No cough, No COPD, No asthma, No emphysema and No wheezing Gastro Gastrointestinal: No abdominal pain, No nausea or vomiting, Yes diarrhea, Yes constipation, No blood in stool, Yes acid reflux, No hemorrhoids, No ulcers, No gallbladder problem and No black,tarry stools Mert Hematologic: No blood thinners, No blood disorders, No bleeding, Yes anemia and No blood clots Neuro Neurologic: No weakness Exam Const General: cooperative, healthy appearing, comfortable and no acute distress [facility] Head: normal to inspection Eyes General: appearance normal, both eyes and all related structures Neck Neck: normal visual inspection Neck mass: No Resp Effort & Inspection: normal respiratory effort Auscultation: clear to auscultation bilaterally Cardio Rate: regular rate Rhythm: regular rhythm GI Inspection: normal to inspection Palpation: soft Auscultation: normal bowel sounds Skin General: no rashes or lesions noted Neuro General: no focal motor deficits and CN's II-XI intact bilaterally Extrem Other: Right upper extremity AV fistula- good pulse, bruit and thrill. During ultrasound examination in the office, patient does have multiple turns in the fistula that may be causing difficulty accessing the fistula. Psych Appearance: grossly normal Affect: normal affect COVID (Procedure Consent) Procedure Criteria Procedure Criteria: Yes Elective The surgeon/proceduralist and patient have discussed in detail the risk of exposure to and/or potential harm posed by the COVID-19 virus with having a surgery/procedure at this time versus the risk of delaying the surgery/procedure. It is not possible to know either the risk of delaying the surgery or procedure or chance of getting an infection with perfect accuracy, but a joint decision was made between the patient and the surgeon/proceduralist to proceed at this time with the scheduled surgery/procedure as indicated on the consent form. Assessment and Plan Assessment and Plan (1) Chronic renal failure, stage 5: Status: Chronic Orders: Orders: Basic Metabolic Profile (BMP) Today CBC W/Diff, Automated Today Plan - Deborah SAUCEDO, PABrittneyC: Dr. Devi will plan to perform a right upper extremity fistulogram accessing via retrograde. Patient is a Jehovah Witness. She is not on any blood thinners. Procedure details, risks and benefits have been explained to the patient and her . Patient verbally understands and agrees with the plan. She is at dialysis on Saturday, Saturday and Saturday. We will plan for a Saturday or for the procedure. Dialysis may continue to access the fistula for treatment. Coding Level of Care Code Off vis,est,level 3 Diagnoses Chronic renal failure, stage 5 N18.5 I have re-examined the patient. There are no clinical changes since date of exam.
--- NOTE | 2021-04-06 10:50 | PCM.OPRPT ---
Problems Associated Problem List Diagnoses (1) Problem with dialysis access: Report of Operation Date of Procedure: 04/06/21 Pre-Operative Diagnosis: pROBLEM WITH DIALYSIS ACCESS RIGHT UPPER EXTREMITY Post-Operative Diagnosis: Widely patent transposed right upper extremity basilic vein to brachial artery arteriovenous hemodialysis fistula Surgery/Procedure Performed:: Right upper extremity fistulogram Description of Surgical Findings:: Timeout informed consent was obtained. 75-year-old female was taken to special procedures room. She was mildly hypertensive as she had not taking any of her medications today. In allotments she received a total of 10 mg of hydralazine IV for better blood pressure control. She received 50 mcg of fentanyl and 1 mg of Versed is intravenous sedation. The right upper extremity was sterilely prepped and draped. Ultrasound was used to identify the transposed basilic vein in the mid right upper arm in a location that we get access. Under ultrasound guidance 2% lidocaine was instilled. Micropuncture needle inserted. Micropuncture wire inserted retrograde with flow. 6 Cambodian short sheath dilator was inserted. Using an 0[address] was able to place a 4 Cambodian glide cath into the brachial artery proximal to the anastomosis. Using Isovue contrast at approximately 5 cc/inj. I was able to attain a right upper extremity fistulogram. She tolerated the procedure well catheter and wire were removed sheath was removed U suture of 4-0 nylon was placed hemostasis was intact. The transposed right upper extremity basilic vein has a widely patent anastomosis and the entire length of the basilic vein appears to be widely patent with adequate central venous outflow. There were no findings that would correlate with hemodynamically significant stenosis. Aaron Devi M.D., F.A.C.S. Surgeon: Aaron Devi Type of Anesthesia: Local
== END 2021-04-06 23:59 | disposition home or self-care (01) ==
LOC: CLSP 08:59
PROVIDERS: PCP Internal Medicine; Referring Provider Surgery; Visit Provider Surgery
DX: I13.2 Hypertensive heart and chronic kidney disease with heart failure and with stage 5 chronic kidney disease, or end stage renal disease (principal); I50.32 Chronic diastolic (congestive) heart failure; E11.40 Type 2 diabetes mellitus with diabetic neuropathy, unspecified; E11.22 Type 2 diabetes mellitus with diabetic chronic kidney disease; N18.5 Chronic kidney disease, stage 5; E78.00 Pure hypercholesterolemia, unspecified; E78.5 Hyperlipidemia, unspecified; Z79.84 Long term (current) use of oral hypoglycemic drugs
CPT/HCPCS: 36901; 76937; 99152; 99153; J7040; Q9967; C1769

== ENCOUNTER → 2021-07-24 | Outpatient (CLI) | payer MEDICARE, SELFPAY ==
[2021-07-24 15:23] LABS: Absolute Lymphocyte Count 1.03 X10^3/uL (0.83-4.51); Absolute Neutrophil Count 3.9 X10^3/uL (2.0-7.7); Basophil# 0.03 X10^3/uL; Basophil% 0.5 % (0-1); Eosinophil# 0.39 X10^3/uL; Eosinophils% 6.5 % (0-5); Hematocrit 34.2 % (37-47); Hemoglobin 11.6 g/dL (12.0-15.0); Lymphocyte # 1.03 X10^3/ul (0.83-4.51); Lymphocyte % 17.1 % (19-41); Mean Corp Hgb Conc 33.9 g/dL (32-36); Mean Corpuscular Hgb 32.5 pg (27.0-32.0); Mean Corpuscular Volume 95.8 fL (81-99); Monocyte# 0.66 X10^3/uL; NRBC Flagged by Analyzer 0 % (0-5); Neutrophil # 3.88 X10^3/uL (2.7-7.7); Neutrophil % 64.6 % (47-70); Platelet Count 157 K/mm3 (150-450); RBC Distribution Width CV 12.2 % (11.6-14.6); RBC Distribution Width SD 42.8 fl (35.1-43.9); Red Blood Count 3.57 M/mm3 (4.2-5.4)
[2021-07-24 15:48] LABS: BUN 19 mg/dL (7-18); Creatinine, Serum 2.91 mg/dL (0.55-1.02); Glucose 146 mg/dL (74-106)
[2021-07-24 15:49] LABS: AST(SGOT) 19 U/L (15-37); Alanine Aminotransfer ALT/SGPT 24 U/L (13-56); Albumin, Serum 3.8 g/dL (3.2-5.0); Alkaline Phosphatase 95 U/L (45-117); Anion Gap 8 (5-15); BUN/Creat Ratio 6.5 RATIO (10-20); Calcium,Total 9.7 mg/dL (8.5-10.1); Chloride 99 mmol/L (98-107); EST Glomerular Filtration Rate 17 mL/min (>60); Est Glom Filt Rate - Afr Amer 20 mL/min (>60); Globulin 3.7 g/dL (2.2-4.2); Potassium 3.3 mmol/L (3.5-5.1); Protein, Total 7.5 g/dL (6.4-8.2); Sodium Level 139 mmol/L (136-145); Uric Acid 2.4 mg/dL (2.6-6.0)
== END | disposition home or self-care (01) ==
LOC: MTLAB 12:36
PROVIDERS: PCP Internal Medicine; Referring Provider Internal Medicine Rheumatology; Visit Provider Internal Medicine Rheumatology
DX: L40.59 Other psoriatic arthropathy (principal); E11.9 Type 2 diabetes mellitus without complications; Z79.899 Other long term (current) drug therapy; M79.7 Fibromyalgia; M15.9 Polyosteoarthritis, unspecified; M17.0 Bilateral primary osteoarthritis of knee; L40.8 Other psoriasis; M65.30 Trigger finger, unspecified finger; M47.897 Other spondylosis, lumbosacral region; K21.00 Gastro-esophageal reflux disease with esophagitis, without bleeding; I10 Essential (primary) hypertension
CPT/HCPCS: 36415; 80053; 84550; 85025

== ENCOUNTER → 2021-08-24 | Outpatient (CLI) | payer MEDICARE, SELFPAY ==
[2021-08-25 16:14] LABS: Giardia Lamblia, Stool EIA Negative (Negative)
[2021-08-25 20:41] LABS: Calprotectin, Stool 82 ug/g (0-120)
== END | disposition home or self-care (01) ==
LOC: LABSPEC 08:08
PROVIDERS: PCP Internal Medicine; Referring Provider Nurse Practitioner Adult Health; Visit Provider Nurse Practitioner Adult Health
DX: D84.9 Immunodeficiency, unspecified (principal); K58.9 Irritable bowel syndrome, unspecified; K52.9 Noninfective gastroenteritis and colitis, unspecified
CPT/HCPCS: 83630; 83993; 87177; 87209; 87329; 87506

== ENCOUNTER → 2021-10-31 | Outpatient (CLI) | payer MEDICARE, SELFPAY ==
[2021-10-31 12:25] LABS: Absolute Lymphocyte Count 0.96 X10^3/uL (0.83-4.51); Absolute Neutrophil Count 7.3 X10^3/uL (2.0-7.7); Basophil# 0.04 X10^3/uL; Basophil% 0.4 % (0-1); Eosinophil# 0.32 X10^3/uL; Eosinophils% 3.4 % (0-5); Hematocrit 26.1 % (37-47); Hemoglobin 8.8 g/dL (12.0-15.0); Lymphocyte # 0.96 X10^3/ul (0.83-4.51); Lymphocyte % 10.2 % (19-41); Mean Corp Hgb Conc 33.7 g/dL (32-36); Mean Corpuscular Hgb 31.9 pg (27.0-32.0); Mean Corpuscular Volume 94.6 fL (81-99); Mean Platelet Vol. 12.3 fl (6.2-12.0); Monocyte# 0.78 X10^3/uL; Monocyte% 8.3 % (0-10); NRBC Flagged by Analyzer 0 % (0-5); Neutrophil # 7.28 X10^3/uL (2.7-7.7); Neutrophil % 77.2 % (47-70); Platelet Count 146 K/mm3 (150-450); RBC Distribution Width CV 12.8 % (11.6-14.6); RBC Distribution Width SD 44.3 fl (35.1-43.9); Red Blood Count 2.76 M/mm3 (4.2-5.4); White Blood Count 9.4 K/mm3 (4.4-11.0)
[2021-10-31 12:44] LABS: Vitamin B12 569 pg/mL (211-911)
[2021-10-31 13:01] LABS: ALB/GLOB Ratio 0.9 RATIO (0.9-2.4); AST(SGOT) 15 U/L (15-37); Alanine Aminotransfer ALT/SGPT 22 U/L (13-56); Albumin, Serum 3.1 g/dL (3.2-5.0); Alkaline Phosphatase 85 U/L (45-117); Anion Gap 13 (5-15); BUN 69 mg/dL (7-18); Calcium,Total 9.4 mg/dL (8.5-10.1); Chloride 107 mmol/L (98-107); Creatinine, Serum 9.79 mg/dL (0.55-1.02); EST Glomerular Filtration Rate 4 mL/min (>60); Est Glom Filt Rate - Afr Amer 5 mL/min (>60); Globulin 3.3 g/dL (2.2-4.2); Glucose 259 mg/dL (74-106); Potassium 3.2 mmol/L (3.5-5.1); Protein, Total 6.4 g/dL (6.4-8.2); Sodium Level 144 mmol/L (136-145)
== END | disposition home or self-care (01) ==
LOC: BIMLAB 09:45
PROVIDERS: PCP Internal Medicine; Visit Provider Internal Medicine
DX: G62.9 Polyneuropathy, unspecified (principal); N18.5 Chronic kidney disease, stage 5; E11.9 Type 2 diabetes mellitus without complications
CPT/HCPCS: 36415; 80053; 82607; 85025

== ENCOUNTER → 2021-12-14 | Outpatient (CLI) | payer MEDICARE, SELFPAY ==
--- NOTE | 2021-12-14 14:00 | BI_ITS ---
MAMMOGRAPHY - BILATERAL SCREENING REASON FOR EXAM: Female, 76 years old. Routine annual screening examination. PERTINENT HISTORY: Non-contributory. Remote right excisional breast biopsy. Left stereotactic breast biopsy. TECHNIQUE: Digital bilateral breast maury (3D mammographic acquisition) in the CC and MLO projections. 2-D mediolateral oblique (MLO) and craniocaudad (CC) views of both breasts were obtained. CAD: Full Field Digital Mammography with Computer Added Detection was performed. COMPARISON: Comparison is made with prior study 01/28/2019 and 10/15/2017. FINDINGS: Breast Composition: The breasts are almost entirely fatty. There are no dominant masses or suspicious calcifications. A tissue clip marker is seen in the deep upper medial portion of the left breast No other significant abnormalities are identified. There has been no significant change since the prior study. BI/SCRN MAMM (CAD)W/MAURY BILAT IMPRESSION: Stable bilateral screening mammogram. Yearly follow-up mammogram recommended. (A) ASSESSMENT CATEGORY: BIRADS Category 1: Negative. A letter regarding these results will be sent to the patient by the facility within 30 days. Approximately 10% of breast cancers are not detected by mammography. A normal mammogram should not delay biopsy of a clinically suspicious abnormality. [id number] Electronically Signed: Warren Coombs MD at 15:16 EDT ,
--- NOTE | 2021-12-14 14:28 | BD_ITS ---
STUDY: DUAL ENERGY X-RAY ABSORPTIOMETRY / DXA REASON FOR EXAM: Female, 76 years old. Osteopenia with high fracture risk TECHNIQUE: Bone Mineral Density (BMD) measurements of lumbar spine and bilateral hips were obtained. COMPARISON: Comparison is made with prior study dated 04/03/2018. FINDINGS: Lumbar Spine (L1-L4): g/cm2 (1.254) / T-score (1.9) / Z-score (4.3) Findings are suggestive of normal bone density with a low fracture risk. Left Femur Total: g/cm2 (0.795) / T-score (-1.2) / Z-score (0.6) Left Femoral Neck: g/cm2 (0.547) / T-score (-2.7) / Z-score (-0.6) Right Femur Total: g/cm2 (0.784) / T-score (-1.3) / Z-score (0.5) Right Femoral Neck: g/cm2 (0.646) / T-score (-1.8) / Z-score (0.3) The T-Scores on the most recent prior examination were: Lumbar Spine (L1-L4): There has been improvement of bone density since the previous examination. Left Femur Total: which represents a worsening of 8%. Right Femur Total: which represents a worsening of 13.8%. BD/Dexa Bone Density Study IMPRESSION: The patient is considered osteoporotic as outlined below according to World Jon Organization (WHO) criteria with a high fracture risk. There has been worsening of bone density since the previous examination. Reference Information: The T-score is the number of standard deviations above or below the standard which is normal for young adults at their peak bone mineral density. The World Health Organization (WHO) interprets the T-scores as follows: Above -1 Normal bone density Between -1 and -2.5 Osteopenia Equal to / or below -2.5 Osteoporosis As a practical clinical guideline, osteopenia may be graded as follows: Mild -1 through -1.5 Moderate -1.6 through -2.0 Severe -2.1 through -2.4 The Z-score is the number of standard deviations above or below age-matched controls. A Z-score of less than -1.5 would be considered abnormal. References: 1. NIH Osteoporosis and Related Bone Diseases www osteo.org 2. International Society for Clinical Densitometry www iscd.org 3. National Osteoporosis Foundation www nof.org Electronically Signed: Warren Coombs MD at 13:59 EDT ,
== END | disposition home or self-care (01) ==
LOC: OPBD 13:58
PROVIDERS: PCP Internal Medicine; Visit Provider Internal Medicine
DX: Z12.31 Encounter for screening mammogram for malignant neoplasm of breast (principal); M85.80 Other specified disorders of bone density and structure, unspecified site; Z78.0 Asymptomatic menopausal state
CPT/HCPCS: 77063; 77067; 77080

== ENCOUNTER → 2022-01-31 | Outpatient (CLI) | payer MEDICARE, SELFPAY | END | disposition home or self-care (01) | LOC: LABSPEC 10:38 | PROVIDERS: PCP Internal Medicine; Referring Provider Internal Medicine; Visit Provider Internal Medicine | DX: R19.7 Diarrhea, unspecified (principal) | CPT/HCPCS: 87493 ==

== ENCOUNTER 2022-02-02 13:44 | Inpatient (IN) | payer MEDICARE, SELFPAY ==
[2022-02-02] VITALS (19 sets, daily range): BP systolic 94–156; BP diastolic 43–62; PULSE 72–90; RESP 11–18; TEMP 35.9–36.7; O2SAT 96–100; BMI 27.4; BMI 25.8
--- NOTE | 2022-02-02 14:13 | EDS_ITS ---
HPI History of Present Illness Chief Complaint: General Illness Narrative Narrative: 76-year-old female presenting with nausea, vomiting, diarrhea. This has been ongoing for about 2 weeks. She is now having diffuse abdominal pain and cramping. He had an outpatient stool study performed and came back positive for C. difficile. Her physician sent her over to the emergency room to be evaluated. She has no recent history of antibiotic use. She is not had a fever. She does note that she was recently placed on home dialysis which she does every day this is for end-stage renal disease. She does home peritoneal dialysis. She does note that she has had chronic diarrhea. She has not had any sick contacts with C. difficile colitis. [facility] Medical History (HFpEF) heart failure with preserved ejection fraction Acute on chronic diastolic (congestive) heart failure Ambulates with cane Anemia Anemia of chronic disease Bilateral edema of lower extremity Blackout C. difficile diarrhea Cardiology follow-up encounter Cataracts, bilateral Chronic diarrhea Chronic diastolic (congestive) heart failure Chronic osteoarthritis Chronic renal failure, stage 4 (severe) Chronic renal failure, stage 5 CPAP (continuous positive airway pressure) dependence Diarrhea Dietary restriction Difficulty swallowing Diverticular disease Easy bruising ESRD (end stage renal disease) Essential (primary) hypertension Eye pressure Flatulence, eructation and gas pain Gastritis determined by endoscopy GERD (gastroesophageal reflux disease) GI bleed Health care maintenance High cholesterol History of CHF (congestive heart failure) History of diverticulosis History of echocardiogram History of edema History of pain when walking History of renal disease History of stress test HLD (hyperlipidemia) HTN (hypertension), malignant Hx of mini strokes Hyperkalemia Hyperparathyroidism Hypersomnolence Hypotension Intraocular pressure increase Left carotid bruit Leg cramps Malaise and fatigue Morbid obesity Neuropathy Non-smoker KHANG (obstructive sleep apnea) Problem with dialysis access Problem with dialysis access Pseudoaneurysm of arteriovenous dialysis fistula Psoriasis Renal artery atherosclerosis Rheumatoid arthritis Secondary pulmonary arterial hypertension Shortness of breath on exertion Syncope Systolic hypertension with cerebrovascular disease TIA (transient ischemic attack) Type 2 diabetes mellitus treated with insulin Uncontrolled hypertension Home Medications ascorbate calcium-bioflavonoid 500 mg-200 mg tablet (Jeannette-C with Bioflavonoids) 1 each PO DAILY SUPPLEMENT 05/03/20 [History Last Taken 02/01/22] disability placard #1 ea 03/26/21 [Rx Last Taken Unknown] hydroxychloroquine 200 mg tablet (Plaquenil) 200 mg PO BID arthritis 07/06/20 [History Last Taken 01/31/22] calcitriol 0.25 mcg capsule (Rocaltrol) 0.25 mcg PO DAILY SUPPLEMENT 07/28/20 [History Last Taken 02/01/22] blood sugar diagnostic #10 ea 09/30/20 [History Last Taken Unknown] blood sugar diagnostic ([employer]uch Ultra Test strips) #100 ea 10/17/20 [Rx Last Taken Unknown] valsartan 160 mg tablet 160 mg PO DAILY heart #90 tabs 03/28/21 [Rx Last Taken 02/02/22] isosorbide mononitrate 60 mg tablet,extended release 24 hr 60 mg PO LUNCH heart #90 tabs 03/31/21 [Rx Last Taken 02/01/22] coenzyme Q10 50 mg tablet 50 mg PO DAILY SUPPLEMENT 05/18/21 [History Last Taken 01/31/22] doxazosin 4 mg tablet (Cardura) 4 mg PO DAILY HEART 11/30/21 [History Last Taken 02/01/22] tramadol 50 mg tablet 50 mg PO DAILY MUSCLE RELAXANT 11/30/21 [History Last Taken 02/01/22] cholestyramine-aspartame 4 gram oral powder (Cholestyramine Light) 1 g PO BID diarrhea #239.4 grams 12/06/21 [Rx Last Taken Unknown] carvedilol 25 mg tablet 25 mg PO BID HEART #180 tabs 01/15/22 [Rx Last Taken 02/02/22] amlodipine 10 mg tablet 10 mg PO DAILY BP 02/02/22 [History Last Taken 02/01/22] hydralazine 100 mg tablet 100 mg PO TID ANXIETY 02/02/22 [History Last Taken 02/02/22] insulin glargine 100 unit/mL (3 mL) subcutaneous pen (Lantus Solostar U-100 Insulin) 25 unit subcut DAILY DM 02/02/22 [History Last Taken Unknown] omeprazole 20 mg capsule,delayed release 20 mg PO DAILY GERD 02/02/22 [History Last Taken 02/02/22] pen needle, diabetic 29 gauge x 1/2 (BD Ultra-Fine Original Pen Needle) 02/02/22 [History Last Taken Unknown] vitamin B complex and vitamin C no.20-folic acid 1 mg capsule (Renal Caps) 1 cap PO DAILY SUPPLEMENT 02/02/22 [History Last Taken 02/01/22] Allergy/AdvReac Type Severity Reaction Status Date / Time calcium Allergy Unknown constipatio Verified 02/02/22 13:49 n amiloride Allergy NEEDS Verified 02/02/22 13:49 FOLLOW-UP azithromycin Allergy NEEDS Verified 02/02/22 13:49 [From Zithromax Z-Rickey] FOLLOW-UP bumetanide Allergy Unknown Verified 02/02/22 13:49 chlorthalidone Allergy Unknown Verified 02/02/22 13:49 clonidine HCl [From Catapres] Allergy Rash Verified 02/02/22 13:49 diltiazem Allergy Unknown Verified 02/02/22 13:49 gemfibrozil Allergy Unknown Verified 02/02/22 13:49 lisinopril Allergy NEEDS Verified 02/02/22 13:49 FOLLOW-UP losartan [Losartan] Allergy Unknown Verified 02/02/22 13:49 minoxidil Allergy Unknown Verified 02/02/22 13:49 nifedipine Allergy Unknown Verified 02/02/22 13:49 simvastatin [From Zocor] Allergy Unknown Verified 02/02/22 13:49 triamterene [From Dyazide] Allergy Unknown Verified 02/02/22 13:49 valdecoxib [From Bextra] Allergy Unknown Verified 02/02/22 13:49 verapamil [Verapamil] Allergy Unknown Verified 02/02/22 13:49 atorvastatin AdvReac Unknown Swelling Verified 02/02/22 13:49 esomeprazole [From Nexium] AdvReac Unknown Swelling Verified 02/02/22 13:49 atorvastatin calcium AdvReac Leg Verified 02/02/22 13:49 [From Lipitor] cramps/aching celecoxib [From Celebrex] AdvReac Leg aching Verified 02/02/22 13:49 hydrochlorothiazide AdvReac Legs aching Verified 02/02/22 13:49 indapamide AdvReac Other Verified 02/02/22 13:49 insulin detemir AdvReac Unknown Verified 02/02/22 13:49 [From Levemir] lansoprazole [From Prevacid] AdvReac Legs aching Verified 02/02/22 13:49 metformin HCl AdvReac Diarrhea Verified 02/02/22 13:49 [From Glucophage] pravastatin AdvReac Legs aching Verified 02/02/22 13:49 rosuvastatin calcium AdvReac Legs aching Verified 02/02/22 13:49 [From Crestor] Family History Mother Diabetes Heart disease CVA (cerebral vascular accident) Myocardial infarction had [place] in 70s Father Cancer lung, passed at 70 Brother Kidney disease of renal failure at 65. Sister Diabetes Hypertension Mother Diabetes Heart disease CVA (cerebral vascular accident) Myocardial infarction age 70s Father Cancer lung CA Sister Hypertension Diabetes Surgical History gallbladder removed History of appendectomy History of arteriovenostomy for renal dialysis (~05/2020) History of arteriovenous graft History of colonoscopy S/P breast lumpectomy surgery on finger due to infection Social History household members: spouse housing: house pets and animals: Yes pets and animals: dog(s) Smoking Status: Never smoker alcohol intake: never substance use type: does not use caffeine: Yes Type: tea Number of servings: 4 what type of physical activity do you participate in: none seatbelt use: always do you feel safe at home: Yes ROS ROS ED Constitutional Constitutional ED: Denies chills or fever(s) Eyes Eyes: Denies change in vision ENT ENT ED: Denies rhinorrhea or sore throat Cardiovascular Cardiovascular: Denies chest pain or palpitations Respiratory/Chest Respiratory/Chest: Denies cough or dyspnea Gastrointestinal Gastrointestinal: Reports abdominal pain, diarrhea, nausea and vomiting Genitourinary Genitourinary ED: Denies dysuria or hematuria Musculoskeletal Musculoskeletal: Denies arthralgias Integumentary Denies abscess Psychiatric Psychiatric: Denies anxiety or depression EXAM Physical Exam Const Vital Signs: 02/02/22 13:45 02/02/22 13:47 02/02/22 15:21 Temperature 97.4 F L 97.4 F L Temperature Source Temporal Temporal Pulse Rate 90 90 76 Respiratory Rate 18 18 15 Blood Pressure 94/47 L 94/47 L 156/49 H Blood Pressure Mean 62 62 84 Pulse Ox 100 100 100 Oxygen Delivery Method Room Air Room Air Room Air 02/02/22 15:00 02/02/22 16:00 Temperature 97.5 F L 97.6 F L Temperature Source Oral Oral Pulse Rate 74 79 Respiratory Rate 12 14 Blood Pressure 117/48 L 150/52 H Blood Pressure Mean 71 84 Pulse Ox 100 99 Oxygen Delivery Method Room Air Room Air Positive well nourished General Appearance ED: NAD HEENT Reports moist mucous membranes Negative for trauma Eyes PERRL and EOMs intact bilaterally Chest Wall inspection of chest normal Resp normal respiratory effort and clear to auscultation bilaterally Auscultation: Negative for rales, rhonchi or wheezes Cardio regular rate and regular rhythm GI GI Narrative: Diffuse abdominal tenderness. No peritoneal signs. Neuro oriented x3 and CN's II-XII intact bilaterally Sensorium / Orientation: alert Motor Exam: strength 5/5 throughout Psych mental status grossly normal Skin no rashes or lesions noted MDM MDM MDM Narrative Medical decision making narrative: Reviewed the medical record shows that she is positive for C. difficile and is positive for the toxin. Blood work will be obtained. Patient has not had any treatment for C. difficile as of yet. Her blood pressure is a little low but she is been vomiting. She is given fentanyl for pain, Zofran for nausea, 250 bolus of normal saline. Her blood pressure did improve. CBC shows a leukocytosis of 15.2, hemoglobin hematocrit are stable. Platelets are normal. Creatinine is elevated but the patient has end-stage renal disease and does peritoneal dialysis at home. Her glucose is elevated at 601 and she has known diabetes. She has an anion gap of 20. Lipase was elevated at 1246. CT of the abdomen pelvis was performed which shows atherosclerosis of the aorta and surrounding vessels. Patient's blood pressure did respond to the fluid bolus. She is normotensive. With her nausea and vomiting as well as C. difficile colitis I will admit her. Her nausea is improved with Zofran. After speaking with the hospitalist she recommended an insulin drip given the glucose being elevated at 601. Patient will be admitted to the ICU for this reason. 1. DKA 2. C. difficile colitis 3. Nausea/vomiting 4. Acute pancreatitis Lab Data Attestation: I reviewed the patient's lab results. Labs: Laboratory Results - last 24 hr 02/02/22 02/02/22 14:10 14:10 WBC 15.2 H RBC 3.70 L Hgb 12.2 Hct 34.8 L MCV 94.1 MCH 33.0 H MCHC 35.1 RDW Std Deviation 50.3 H RDW Coeff of Pepe 14.9 H Plt Count 187 MPV 12.1 H Immature Gran % (Auto) 0.500 Neut % (Auto) 81.6 H Lymph % (Auto) 9.1 L Trigg % (Auto) 7.1 Eos % (Auto) 1.4 Baso % (Auto) 0.3 Absolute Neuts (auto) 12.4 H Absolute Lymphs (auto) 1.38 Nucleated RBC % 0 Sodium 130 L Potassium 4.4 Chloride 92 L Carbon Dioxide 18.0 L Anion Gap 20 H BUN 75 H Creatinine 16.40 H* Estim Creat Clear Calc 2.45 Est GFR (MDRD) Af Amer 3 L Est GFR (MDRD) Non-Af 2 L BUN/Creatinine Ratio 4.6 L Glucose 601 H* Calcium 10.3 H Total Bilirubin 0.60 AST 13 L ALT 20 Alkaline Phosphatase 100 Total Protein 7.4 Albumin 3.2 Globulin 4.2 Albumin/Globulin Ratio 0.8 L Lipase 1246 H Radiography Diagnostic Testing: Clinical Impression(s) from Imaging Studies Abdomen/Pelvis CT 02/02/22 14:56 IMPRESSION: Extensive atherosclerotic changes of the aorta and the major visceral branches. Status post cholecystectomy. Electronically Signed: Warren Coombs MD at 15:32 EST , Discharge Plan Triage Chief Complaint: General Illness ED Provider: Wiley Paz Dx/Rx/DC Orders Primary Care Provider: Hamzah Wallis
[2022-02-02 14:24] LABS: Absolute Lymphocyte Count 1.38 X10^3/uL (0.83-4.51); Absolute Neutrophil Count 12.4 X10^3/uL (2.0-7.7); Basophil# 0.05 X10^3/uL; Basophil% 0.3 % (0-1); Eosinophil# 0.21 X10^3/uL; Eosinophils% 1.4 % (0-5); Hematocrit 34.8 % (37-47); Hemoglobin 12.2 g/dL (12.0-15.0); Lymphocyte # 1.38 X10^3/ul (0.83-4.51); Lymphocyte % 9.1 % (19-41); Mean Corp Hgb Conc 35.1 g/dL (32-36); Mean Corpuscular Volume 94.1 fL (81-99); Mean Platelet Vol. 12.1 fl (6.2-12.0); Monocyte# 1.07 X10^3/uL; Monocyte% 7.1 % (0-10); NRBC Flagged by Analyzer 0 % (0-5); Neutrophil # 12.39 X10^3/uL (2.7-7.7); Neutrophil % 81.6 % (47-70); Platelet Count 187 K/mm3 (150-450); RBC Distribution Width CV 14.9 % (11.6-14.6); RBC Distribution Width SD 50.3 fl (35.1-43.9); White Blood Count 15.2 K/mm3 (4.4-11.0)
[2022-02-02] MEDS: Ondansetron 4 MG/2 ML Vial IV ×2 (14:27→22:48)
[2022-02-02] MEDS: fentaNYL 100 MCG/2 ML Ampul 25 MCG IV (14:27)
[2022-02-02 14:53] LABS: ALB/GLOB Ratio 0.8 RATIO (0.9-2.4); AST(SGOT) 13 U/L (15-37); Alanine Aminotransfer ALT/SGPT 20 U/L (13-56); Albumin, Serum 3.2 g/dL (3.2-5.0); Alkaline Phosphatase 100 U/L (45-117); Anion Gap 20 (5-15); BUN 75 mg/dL (7-18); BUN/Creat Ratio 4.6 RATIO (10-20); Calcium,Total 10.3 mg/dL (8.5-10.1); Chloride 92 mmol/L (98-107); EST Glomerular Filtration Rate 2 mL/min (>60); Est Glom Filt Rate - Afr Amer 3 mL/min (>60); Estimated Creatinine Clearance 2.45 ml/min; Globulin 4.2 g/dL (2.2-4.2); Glucose 601 mg/dL (74-106); Lipase 1246 U/L (73-393); Potassium 4.4 mmol/L (3.5-5.1); Protein, Total 7.4 g/dL (6.4-8.2); Sodium Level 130 mmol/L (136-145)
--- NOTE | 2022-02-02 14:56 | CT_ITS ---
STUDY: CT ABDOMEN AND PELVIS WITHOUT CONTRAST REASON FOR EXAM: Female, 76 years old. Abdominal pain, WITH C-DIFF. PERITONEAL DIALYSIS RADIATION DOSAGE (If Supplied By Facility): CTDIvol = ( 8.70 ) mGy, DLP = ( 427.98 ) mGycm TECHNIQUE: Transaxial images were obtained from the dome of the diaphragm to the symphysis pubis without oral contrast, and without intravenous contrast. Sagittal and coronal images were reconstructed. Individualized dose optimization techniques were used for this CT. COMPARISON: None. FINDINGS: The visualized lung bases are unremarkable. Coronary artery calcification. Calcification of the mitral valve annulus. There is a 1.1 cm cyst in the central portion of the right lobe of the liver. There are surgical clips in the gallbladder fossa consistent with a prior cholecystectomy. Normal spleen. Normal pancreas. Normal bilateral adrenal glands. Normal right kidney. Small left renal cyst. Normal visualized stomach. Normal small intestine. Normal colon. The appendix is visualized and appears normal. There is diffuse atherosclerotic calcification of the abdominal aorta and its major visceral branches, without a demonstrated aneurysm. Normal inferior vena cava. Surgical clips are seen in the right hemipelvis peritoneal fat most likely from a prior right renal transplantation. Normal urinary bladder. A peritoneal dialysis catheter is seen within the pelvis. Calcified fibroid uterus. Normal abdominal wall. There are diffuse degenerative changes of the visualized lumbar spine. Minimal anterior listhesis of L4 on L5 secondary to facet joint osteoarthritis. CT/Abdomen/Pelvis without Cont IMPRESSION: Extensive atherosclerotic changes of the aorta and the major visceral branches. Status post cholecystectomy. Electronically Signed: Warren Coombs MD at 15:32 EST ,
--- NOTE | 2022-02-02 16:51 | PCM.HP.STD ---
HPI - General General Date of Admission: 02/02/22 Date of Service: 02/02/22 Chief Complaint: N/V/D HPI Narrative The patient is a 76 y/o F w/ PMHx: ESRD on home daily peritoneal dialysis following with Dr. Aguilar, Chronic anemia/AOCD, HTN, HLD, Chronic Diastolic CHF, GERD, Hx TIA, KHANG, Diabetes mellitus type II who presents to the [facility] ED on 02/02/22 with history of persistent nausea, emesis as well as diarrhea in addition to diffuse abdominal pain and cramping ongoing for at least 2 weeks with recent outpatient stool studies with reportedly positive C. difficile colitis with referral to the ED for evaluation with no recent history of antibiotic use and no recent fevers. She does note that she recently was transition to home dialysis every day specifically peritoneal dialysis. She does have underlying chronic diarrhea however its been more persistent recently. Work-up in the ED included T96.8, heart rate 80, BP initially 92/52 with most recent repeat 156/49, respiratory rate 16, 100% on room air, CBC with WBC 15.2, hemoglobin 12.2, platelet 187 with left shift, CMP with sodium 130, chloride 92, carbon dioxide 18, anion gap elevated at 20, BUN/creatinine 75/16.40, glucose 601, calcium 10.3, hepatic profile with total bilirubin 0.60, AST/ALT 13/20, alk phos 100, lipase 1246, CT abdomen and pelvis with extensive atherosclerotic changes of the aorta and major visceral branches, status postcholecystectomy, normal-appearing pancreas despite elevated lipase. In the ED patient administered fentanyl as well as Zofran therapy, initiated on Insulin drip and administered oral vanc dose x 1. [facility] Medical History (HFpEF) heart failure with preserved ejection fraction Acute on chronic diastolic (congestive) heart failure Ambulates with cane Anemia Anemia of chronic disease Bilateral edema of lower extremity Blackout C. difficile diarrhea Cardiology follow-up encounter Cataracts, bilateral Chronic diarrhea Chronic diastolic (congestive) heart failure Chronic osteoarthritis Chronic renal failure, stage 4 (severe) Chronic renal failure, stage 5 CPAP (continuous positive airway pressure) dependence Diarrhea Dietary restriction Difficulty swallowing Diverticular disease Easy bruising ESRD (end stage renal disease) Essential (primary) hypertension Eye pressure Flatulence, eructation and gas pain Gastritis determined by endoscopy GERD (gastroesophageal reflux disease) GI bleed Health care maintenance High cholesterol History of CHF (congestive heart failure) History of diverticulosis History of echocardiogram History of edema History of pain when walking History of renal disease History of stress test HLD (hyperlipidemia) HTN (hypertension), malignant Hx of mini strokes Hyperkalemia Hyperparathyroidism Hypersomnolence Hypotension Intraocular pressure increase Left carotid bruit Leg cramps Malaise and fatigue Morbid obesity Neuropathy Non-smoker KHANG (obstructive sleep apnea) Problem with dialysis access Problem with dialysis access Pseudoaneurysm of arteriovenous dialysis fistula Psoriasis Renal artery atherosclerosis Rheumatoid arthritis Secondary pulmonary arterial hypertension Shortness of breath on exertion Syncope Systolic hypertension with cerebrovascular disease TIA (transient ischemic attack) Type 2 diabetes mellitus treated with insulin Uncontrolled hypertension Home Medications ascorbate calcium-bioflavonoid 500 mg-200 mg tablet (Jeannette-C with Bioflavonoids) 1 each PO DAILY SUPPLEMENT 05/03/20 [History Last Taken 02/01/22] disability placard #1 ea 05/27/20 [Rx Last Taken Unknown] hydroxychloroquine 200 mg tablet (Plaquenil) 200 mg PO BID arthritis 07/06/20 [History Last Taken 01/31/22] calcitriol 0.25 mcg capsule (Rocaltrol) 0.25 mcg PO DAILY SUPPLEMENT 07/28/20 [History Last Taken 02/01/22] blood sugar diagnostic #10 ea 09/30/20 [History Last Taken Unknown] blood sugar diagnostic ([employer] Ultra Test strips) #100 ea 10/17/20 [Rx Last Taken Unknown] valsartan 160 mg tablet 160 mg PO DAILY heart #90 tabs 03/28/21 [Rx Last Taken 02/02/22] isosorbide mononitrate 60 mg tablet,extended release 24 hr 60 mg PO LUNCH heart #90 tabs 03/31/21 [Rx Last Taken 02/01/22] coenzyme Q10 50 mg tablet 50 mg PO DAILY SUPPLEMENT 05/18/21 [History Last Taken 01/31/22] doxazosin 4 mg tablet (Cardura) 4 mg PO DAILY HEART 11/30/21 [History Last Taken 02/01/22] tramadol 50 mg tablet 50 mg PO DAILY MUSCLE RELAXANT 11/30/21 [History Last Taken 02/01/22] cholestyramine-aspartame 4 gram oral powder (Cholestyramine Light) 1 g PO BID diarrhea #239.4 grams 12/06/21 [Rx Last Taken Unknown] carvedilol 25 mg tablet 25 mg PO BID HEART #180 tabs 01/15/22 [Rx Last Taken 02/02/22] amlodipine 10 mg tablet 10 mg PO DAILY BP 02/02/22 [History Last Taken 02/01/22] hydralazine 100 mg tablet 100 mg PO TID ANXIETY 02/02/22 [History Last Taken 02/02/22] insulin glargine 100 unit/mL (3 mL) subcutaneous pen (Lantus Solostar U-100 Insulin) 25 unit subcut DAILY DM 02/02/22 [History Last Taken Unknown] omeprazole 20 mg capsule,delayed release 20 mg PO DAILY GERD 02/02/22 [History Last Taken 02/02/22] pen needle, diabetic 29 gauge x 1/2 (BD Ultra-Fine Original Pen Needle) 02/02/22 [History Last Taken Unknown] vitamin B complex and vitamin C no.20-folic acid 1 mg capsule (Renal Caps) 1 cap PO DAILY SUPPLEMENT 02/02/22 [History Last Taken 02/01/22] Allergy/AdvReac Type Severity Reaction Status Date / Time calcium Allergy Unknown constipatio Verified 02/02/22 13:49 n amiloride Allergy NEEDS Verified 02/02/22 13:49 FOLLOW-UP azithromycin Allergy NEEDS Verified 02/02/22 13:49 [From Zithromax Z-Rickey] FOLLOW-UP bumetanide Allergy Unknown Verified 02/02/22 13:49 chlorthalidone Allergy Unknown Verified 02/02/22 13:49 clonidine HCl [From Catapres] Allergy Rash Verified 02/02/22 13:49 diltiazem Allergy Unknown Verified 02/02/22 13:49 gemfibrozil Allergy Unknown Verified 02/02/22 13:49 lisinopril Allergy NEEDS Verified 02/02/22 13:49 FOLLOW-UP losartan [Losartan] Allergy Unknown Verified 02/02/22 13:49 minoxidil Allergy Unknown Verified 02/02/22 13:49 nifedipine Allergy Unknown Verified 02/02/22 13:49 simvastatin [From Zocor] Allergy Unknown Verified 02/02/22 13:49 triamterene [From Dyazide] Allergy Unknown Verified 02/02/22 13:49 valdecoxib [From Bextra] Allergy Unknown Verified 02/02/22 13:49 verapamil [Verapamil] Allergy Unknown Verified 02/02/22 13:49 atorvastatin AdvReac Unknown Swelling Verified 02/02/22 13:49 esomeprazole [From Nexium] AdvReac Unknown Swelling Verified 02/02/22 13:49 atorvastatin calcium AdvReac Leg Verified 02/02/22 13:49 [From Lipitor] cramps/aching celecoxib [From Celebrex] AdvReac Leg aching Verified 02/02/22 13:49 hydrochlorothiazide AdvReac Legs aching Verified 02/02/22 13:49 indapamide AdvReac Other Verified 02/02/22 13:49 insulin detemir AdvReac Unknown Verified 02/02/22 13:49 [From Levemir] lansoprazole [From Prevacid] AdvReac Legs aching Verified 02/02/22 13:49 metformin HCl AdvReac Diarrhea Verified 02/02/22 13:49 [From Glucophage] pravastatin AdvReac Legs aching Verified 02/02/22 13:49 rosuvastatin calcium AdvReac Legs aching Verified 02/02/22 13:49 [From Crestor] Family History Mother Diabetes Heart disease CVA (cerebral vascular accident) Myocardial infarction had [place] in 70s Father Cancer lung, passed at 70 Brother Kidney disease of renal failure at 65. Sister Diabetes Hypertension Mother Diabetes Heart disease CVA (cerebral vascular accident) Myocardial infarction age 70s Father Cancer lung CA Sister Hypertension Diabetes Surgical History gallbladder removed History of appendectomy History of arteriovenostomy for renal dialysis (~05/2020) History of arteriovenous graft History of colonoscopy S/P breast lumpectomy surgery on finger due to infection Social History household members: spouse housing: house pets and animals: Yes pets and animals: dog(s) Smoking Status: Never smoker alcohol intake: never substance use type: does not use caffeine: Yes Type: tea Number of servings: 4 what type of physical activity do you participate in: none seatbelt use: always do you feel safe at home: Yes ROS ROS Narrative Admission Review of Systems: CONSTITUTIONAL: No weight loss, fever, chills, + weakness or fatigue. HEENT: Eyes: No visual loss, blurred vision, double vision or yellow sclerae. Ears, Nose, Throat: No hearing loss, sneezing, congestion, runny nose or sore throat. SKIN: No rash or itching, lesions, wounds. CARDIOVASCULAR: No chest pain, chest pressure or chest discomfort, palpitations, edema, orthopnea, syncopal events. RESPIRATORY: No shortness of breath, cough or sputum, wheezing, hemoptysis. GASTROINTESTINAL: + anorexia, nausea, vomiting, diarrhea, abdominal pain, No melena, BRBPR. GENITOURINARY: No dysuria, frequency, urgency or retention. NEUROLOGICAL: No headache, dizziness, syncope, paralysis, ataxia, numbness or tingling in the extremities, focal weakness, change in bowel or bladder control, seizure. MUSCULOSKELETAL: + muscle, back pain, joint pain or stiffness. HEMATOLOGIC: + anemia, bleeding or bruising. LYMPHATICS: No enlarged nodes. No history of splenectomy. PSYCHIATRIC: No history of depression or anxiety. ENDOCRINOLOGIC: No reports of sweating, cold or heat intolerance. No polyuria or polydipsia. ALLERGIES: No history of asthma, hives, eczema or rhinitis. Vital Signs Vital Signs Vital Signs: 02/02/22 13:45 02/02/22 13:47 02/02/22 15:21 Temperature 97.4 F L 97.4 F L Temperature Source Temporal Temporal Pulse Rate 90 90 76 Respiratory Rate 18 18 15 Blood Pressure 94/47 L 94/47 L 156/49 H Blood Pressure Mean 62 62 84 Pulse Ox 100 100 100 Oxygen Delivery Method Room Air Room Air Room Air Weight Weight: 155 lb Body Mass Index (BMI) 27.4 Physical Exam Narrative Physical Examination: General: Awake, alert, oriented x 3 and cooperative, laying in the ED bed, fatigued appearing, no acute distress. Skin: Normal color, normal turgor, no icterus, no cyanosis except for occasional staged ecchymoses. HEENT: AT/NC, EOMI, PERRLA, dry MM, no carotid bruits or JVD noted. Lungs: Mildly diminished, greater bases, decreased effort, no rales, ronchi or wheezing. Heart: Regular rate and rhythm; no gallop, rub audible. Abdomen: Soft, mild discomfort to epigastric palpation but not severe and no rebound or guarding, mildly distended, hyperactive bowel sounds, no obvious HSM. Extremities: No cyanosis, no clubbing, no marked peripheral edema. Neurological: Patient awake, alert, oriented as noted, cognitive function intact; pupils equally reactive to light and accommodation, cranial nerves II-XII grossly normal, moving all 4 extremities, no focal deficits, strength moderately to severely global decrease secondary to acute complaints Psychiatric: Affect appears fatigued, no acute evidence of depressive or anxiety feelings. Results Lab / Micro Data Result Diagrams: 02/02/22 14:10 02/02/22 18:55 Labs: Laboratory Results - last 24 hr 02/02/22 14:10: WBC 15.2 H, RBC 3.70 L, Hgb 12.2, Hct 34.8 L, MCV 94.1, MCH 33.0 H, MCHC 35.1, RDW Std Deviation 50.3 H, RDW Coeff of Pepe 14.9 H, Plt Count 187, MPV 12.1 H, Immature Gran % (Auto) 0.500, Neut % (Auto) 81.6 H, Lymph % (Auto) 9.1 L, [place] % (Auto) 7.1, Eos % (Auto) 1.4, Baso % (Auto) 0.3, Absolute Neuts (auto) 12.4 H, Absolute Lymphs (auto) 1.38, Nucleated RBC % 0 02/02/22 14:10: Sodium 130 L, Potassium 4.4, Chloride 92 L, Carbon Dioxide 18.0 L, Anion Gap 20 H, BUN 75 H, Creatinine 16.40 H*, Estim Creat Clear Calc 2.45, Est GFR (MDRD) Af Amer 3 L, Est GFR (MDRD) Non-Af 2 L, BUN/Creatinine Ratio 4.6 L, Glucose 601 H*, Calcium 10.3 H, Total Bilirubin 0.60, AST 13 L, ALT 20, Alkaline Phosphatase 100, Total Protein 7.4, Albumin 3.2, Globulin 4.2, Albumin/Globulin Ratio 0.8 L, Lipase 1246 H Radiology Impression Abdomen/Pelvis CT 02/02/22 14:56 IMPRESSION: Extensive atherosclerotic changes of the aorta and the major visceral branches. Status post cholecystectomy. Electronically Signed: Warren Coombs MD at 15:32 EST , Assessment & Plan Assessment/Plan (1) C. difficile diarrhea: PLAN: Plan The patient is a 76 y/o F w/ PMHx: ESRD on home daily peritoneal dialysis following with Dr. Aguilar, Chronic anemia/AOCD, HTN, HLD, Chronic Diastolic CHF, GERD, Hx TIA, KHANG, Diabetes mellitus type II who presents to the [facility] ED on 02/02/22 with history of persistent nausea, emesis as well as diarrhea in addition to diffuse abdominal pain and cramping ongoing for at least 2 weeks with recent outpatient stool studies with reportedly positive C. difficile colitis with referral to the ED for evaluation with no recent history of antibiotic use and no recent fevers. #1. DKA w/ Diabetes mellitus type II: We will additionally obtain acetone level but currently patient does have elevated anion gap with hyperglycemia and in the acute setting certainly would be probable. Will admit to ICU, continue on insulin drip, check serial K+, glucose w/ IVF changes pending these levels, serial chemistry, obtain mag, phos daily w/ repletion as needed, transition to home SC regimen when gap closed w/ overlap on drip, nutrition consultation. Encouraged diet and insulin regimen compliance. #2. Acute C. difficile colitis: Recent history of ongoing persistent nausea, emesis, diarrhea likely associated also with potentially acute pancreatitis and #1, will maintain on judicious IV fluids, initiate oral vancomycin regimen, maintain on precautions, obtain stool enteric also to be thorough. #3. Acutely elevated lipase, concerning for acute pancreatitis however no stranding on CT imaging: Will maintain on judicious IVFs, NPO, PPI, IV/po pain control, trend lipase, CMP. Patient s/p prior cholecystectomy with CT A/P without overt findings and despite lipase elevation no marked stranding. Will FLP, denies EtOH use. #4. ESRD: Following w/ Dr. Aguilar, ongoing peritoneal dialysis daily, will consult Nephrology, especially given as noted need for hydration associated with her acute presentation #1, #2. #5. Chronic diastolic CHF: 03/09/2020 echocardiogram with normal LV size, moderate concentric LVH, LV systolic function normal, EF 65%, stage II diastolic dysfunction, mildly enlarged LA, will continue aspirin, noted statin allergy, continue home Coreg as well as valsartan and hydralazine regimen, not on diuretic but end-stage renal disease with ongoing peritoneal dialysis is noted #6. Hypertension: Continue home regimen including valsartan, isosorbide, doxazosin, hydralazine, Coreg, amlodipine, PRN hydralazine. #7. Hyperlipidemia: Noted statin allergy, not on regimen, FLP in a.m. given #2. #8. Chronic anemia/AOCD: Admission hemoglobin 12.2, baseline prior has primarily been 8-9 range, most recently prior to this 10/04/2021 hemoglobin 8.8, will repeat CBC in a.m. #9. GERD: Patient with notable allergy history, defer addition of prophylaxis especially also in the setting of C. difficile colitis. #10. History TIA: We will continue aspirin, noted statin allergy, continue hypertensive regimen and diabetic regimen with alterations as noted. #11. KHANG: CPAP q HS. #12. DVT prophylaxis: SCDs, heparin. #13. CODE status: Patient HCPGLADYS is her and living will is currently in place. Discussed CODE status at length including difference between FULL code, DNR-CCA and DNR-CC status. Following discussions about the differences in these status, requested DNR-CCA, no intubation status. Also declines any PRBC administration secondary to Jehovah witness status. Advanced Care Planning Face to Face Time: 16 minutes. Charges/Coding Visit Charges Inpatient E&M: 12722 Init Hosp L3 Procedures Hospitalists Procedures: 71532 Advncd Care Plan 30 Min
[2022-02-02] MEDS: Vancomycin 125 MG/5 ML Susp PO.SYRINGE PO (17:35)
[2022-02-02 18:00] LABS: Bedside Glucose 388 mg/dL (74-106)
[2022-02-02 18:40] LABS: Bedside Glucose 377 mg/dL (74-106)
[2022-02-02 18:53] LABS: Magnesium 2.6 mg/dL (1.6-2.6); Phosphorus 10.8 mg/dL (2.5-4.9)
[2022-02-02 19:26] LABS: Anion Gap 17 (5-15); BUN 73 mg/dL (7-18); BUN/Creat Ratio 4.9 RATIO (10-20); Calcium,Total 9.3 mg/dL (8.5-10.1); Chloride 103 mmol/L (98-107); EST Glomerular Filtration Rate 3 mL/min (>60); Est Glom Filt Rate - Afr Amer 3 mL/min (>60); Estimated Creatinine Clearance 2.92 ml/min; Glucose 266 mg/dL (74-106); Potassium 4.3 mmol/L (3.5-5.1); Sodium Level 138 mmol/L (136-145)
[2022-02-02] MEDS: 0.9% Normal Saline 1,000 ML 999 ML IV (19:34)
--- NOTE | 2022-02-02 20:19 | CPS ---
Patient stated that she has been told that she has sleep apnea, but does not like wearing the machine. She doesn't wish to wear one while here.
[2022-02-02] MEDS: Dext 5%-0.45% NS 1,000 ML 150 ML IV (20:40)
[2022-02-02] MEDS: Heparin Injection (Vial) 5,000 UNIT/ML VIAL 5000 UNIT SC (21:01)
[2022-02-02] MEDS: Hydroxychloroquine 200 MG Tablet PO (21:01)
[2022-02-02] MEDS: Carvedilol 25 MG Tablet PO (21:01)
[2022-02-02] MEDS: Cholestyramine/Sucrose 4 GM/PACKET PO (21:03)
--- NOTE | 2022-02-02 22:32 | NURSING ---
Pt does peritoneal dialysis daily overnight at home. Pt's brought in dialysis equipment this evening and began dialysis for her.
[2022-02-02] MEDS: traMADol 50 MG Tablet PO (22:48)
[2022-02-02] MEDS: 0.9% Saline Lock 10 ML Syringe IV (22:48)
[2022-02-02 23:17] LABS: Anion Gap 17 (5-15); BUN 73 mg/dL (7-18); BUN/Creat Ratio 4.7 RATIO (10-20); Calcium,Total 9.7 mg/dL (8.5-10.1); Chloride 103 mmol/L (98-107); EST Glomerular Filtration Rate 2 mL/min (>60); Est Glom Filt Rate - Afr Amer 3 mL/min (>60); Estimated Creatinine Clearance 2.84 ml/min; Glucose 179 mg/dL (74-106); Potassium 3.3 mmol/L (3.5-5.1); Sodium Level 140 mmol/L (136-145)
[2022-02-02] MEDS: Vancomycin HCl 250 MG Capsule 500 MG PO (23:39)
[2022-02-03] VITALS (25 sets, daily range): BP systolic 88–144; BP diastolic 34–81; PULSE 64–84; RESP 11–18; TEMP 36.3–36.6; O2SAT 95–100
[2022-02-03 02:59] LABS: Absolute Lymphocyte Count 2.12 X10^3/uL (0.83-4.51); Absolute Neutrophil Count 9.4 X10^3/uL (2.0-7.7); Basophil# 0.04 X10^3/uL; Basophil% 0.3 % (0-1); Eosinophil# 0.67 X10^3/uL; Eosinophils% 4.8 % (0-5); Hematocrit 30.1 % (37-47); Hemoglobin 10.2 g/dL (12.0-15.0); Lymphocyte # 2.12 X10^3/ul (0.83-4.51); Lymphocyte % 15.2 % (19-41); Mean Corp Hgb Conc 33.9 g/dL (32-36); Mean Corpuscular Hgb 31.9 pg (27.0-32.0); Mean Corpuscular Volume 94.1 fL (81-99); Mean Platelet Vol. 12.1 fl (6.2-12.0); Monocyte# 1.64 X10^3/uL; Monocyte% 11.8 % (0-10); NRBC Flagged by Analyzer 0 % (0-5); Neutrophil % 67.4 % (47-70); POSITIVE DIFFERENTIAL YES; Platelet Count 163 K/mm3 (150-450); RBC Distribution Width CV 15.1 % (11.6-14.6); RBC Distribution Width SD 50.2 fl (35.1-43.9); White Blood Count 13.9 K/mm3 (4.4-11.0)
[2022-02-03 03:01] LABS: Differential Indicated SCAN CRITERIA MET
[2022-02-03] MEDS: Dext 5%-0.45% NS 1,000 ML 150 ML IV ×2 (03:21→10:04)
[2022-02-03 03:54] LABS: ALB/GLOB Ratio 0.7 RATIO (0.9-2.4); AST(SGOT) 23 U/L (15-37); Alanine Aminotransfer ALT/SGPT 20 U/L (13-56); Albumin, Serum 2.6 g/dL (3.2-5.0); Alkaline Phosphatase 79 U/L (45-117); Anion Gap 17 (5-15); BUN 68 mg/dL (7-18); BUN/Creat Ratio 4.6 RATIO (10-20); Calcium,Total 9.2 mg/dL (8.5-10.1); Chloride 100 mmol/L (98-107); Cholesterol 141 mg/dL (200); EST Glomerular Filtration Rate 3 mL/min (>60); Est Glom Filt Rate - Afr Amer 3 mL/min (>60); Estimated Creatinine Clearance 2.94 ml/min; Globulin 3.5 g/dL (2.2-4.2); Glucose 123 mg/dL (74-106); High Density Lipoprotein 30 mg/dL; Lipase 997 U/L (73-393); Potassium 3.6 mmol/L (3.5-5.1); Protein, Total 6.1 g/dL (6.4-8.2); Sodium Level 140 mmol/L (136-145); Triglycerides 234 mg/dL; Very Low Density Lipoprotein 47 mg/dL (5-40)
[2022-02-03] MEDS: 0.9% Saline Lock 10 ML Syringe IV ×2 (04:09→14:22)
[2022-02-03 04:25] LABS: Differential Comment SCANNED
[2022-02-03 05:00] LABS: Bedside Glucose 188 mg/dL (74-106)
[2022-02-03 05:00] LABS: Bedside Glucose 164 mg/dL (74-106)
[2022-02-03 05:00] LABS: Bedside Glucose 160 mg/dL (74-106)
[2022-02-03 05:05] LABS: Bedside Glucose 168 mg/dL (74-106)
[2022-02-03 05:05] LABS: Bedside Glucose 125 mg/dL (74-106)
[2022-02-03 05:05] LABS: Bedside Glucose 86 mg/dL (74-106)
[2022-02-03 05:05] LABS: Bedside Glucose 191 mg/dL (74-106)
[2022-02-03 05:05] LABS: Bedside Glucose 134 mg/dL (74-106)
[2022-02-03 05:05] LABS: Bedside Glucose 103 mg/dL (74-106)
[2022-02-03 05:05] LABS: Bedside Glucose 111 mg/dL (74-106)
[2022-02-03] MEDS: Vancomycin HCl 250 MG Capsule 500 MG PO ×3 (05:48→17:27)
--- NOTE | 2022-02-03 05:51 | EX.PCM.CONCC ---
Assessment & Plan Assessment/Plan (1) C. difficile diarrhea: PLAN: Plan RECOMMENDATIONS: 1. Continue IV fluid resuscitation and insulin infusion per protocol. 2. Continue to monitor electrolytes closely and replete as necessary. 3. Once anion gap is closed x2, transition to basal and sliding scale insulin coverage. 4. The patient should remain n.p.o. for now. 5. Peritoneal dialysis per home regimen. 6. P.o. vancomycin to address C. difficile colitis. IMPRESSIONS: 1. Acute C. difficile colitis Continue supportive measures including IV fluid resuscitation and oral vancomycin as ordered. 2. Diabetic ketoacidosis Continue management per protocol with supplemental IV fluid hydration and continuous insulin infusion. Do not stop insulin infusion, regardless of blood glucose levels. The patient will remain on this infusion until anion gap has been closed x2. She should remain n.p.o. for now. 3. End-stage renal disease on peritoneal dialysis Continue supportive measures including routine peritoneal dialysis. Consider consultation to nephrology. 4. History of heart failure with preserved ejection fraction/hypertension/hyperlipidemia/GERD/anemia/obstructive sleep apnea Complicates care, management, recovery and prognosis. Continue home medications as indicated. This note was generated with [employer] dictation software. It may contain incorrect words, spelling, and punctuation that were not noted in checking the note before signing. HPI Consult Data Date of Consult: 02/04/22 HPI Narrative Reason for Consultation: DKA HPI Narrative: The patient is a 76-year-old female, with a history as outlined below, who presented to the emergency department on February 02 with nausea, vomiting and diarrhea in the setting of C. difficile colitis at the urging of her PCP. The patient has a history of end-stage renal disease on home peritoneal dialysis along with heart failure with preserved ejection fraction, sleep apnea and diabetes mellitus. On presentation to the emergency department, the patient was noted to have a temperature of 96.8 ?F. She was otherwise hypotensive with a presenting blood pressure of 92/52 mmHg. Initial laboratory evaluation revealed a white blood cell count of 15,000. Chemistry profile was notable for a sodium of 130, chloride of 92, bicarbonate of 18, anion gap of 20, BUN of 75 and creatinine of 16.4. Glucose was elevated at 601. Hemoglobin A1c on February 02 was noted to be 8.1. Lipase was elevated at 1246. Acetone level was negative. CT abdomen/pelvis demonstrated normal gallbladder, spleen and pancreas. The patient was started on supplemental IV fluids and a continuous insulin infusion. She was subsequently admitted to the medical intensive care unit for further management. This morning, she reported feeling much better than previous. She denies any abdominal pain, nausea or vomiting. [facility] Medical History (HFpEF) heart failure with preserved ejection fraction Acute on chronic diastolic (congestive) heart failure Ambulates with cane Anemia Anemia of chronic disease Bilateral edema of lower extremity Blackout C. difficile diarrhea Cardiology follow-up encounter Cataracts, bilateral Chronic diarrhea Chronic diastolic (congestive) heart failure Chronic osteoarthritis Chronic renal failure, stage 4 (severe) Chronic renal failure, stage 5 CPAP (continuous positive airway pressure) dependence Diarrhea Dietary restriction Difficulty swallowing Diverticular disease Easy bruising ESRD (end stage renal disease) Essential (primary) hypertension Eye pressure Flatulence, eructation and gas pain Gastritis determined by endoscopy GERD (gastroesophageal reflux disease) GI bleed Health care maintenance High cholesterol History of CHF (congestive heart failure) History of diverticulosis History of echocardiogram History of edema History of pain when walking History of renal disease History of stress test HLD (hyperlipidemia) HTN (hypertension), malignant Hx of mini strokes Hyperkalemia Hyperparathyroidism Hypersomnolence Hypotension Intraocular pressure increase Left carotid bruit Leg cramps Malaise and fatigue Morbid obesity Neuropathy Non-smoker KHANG (obstructive sleep apnea) Problem with dialysis access Problem with dialysis access Pseudoaneurysm of arteriovenous dialysis fistula Psoriasis Renal artery atherosclerosis Rheumatoid arthritis Secondary pulmonary arterial hypertension Shortness of breath on exertion Syncope Systolic hypertension with cerebrovascular disease TIA (transient ischemic attack) Type 2 diabetes mellitus treated with insulin Uncontrolled hypertension Home Medications ascorbate calcium-bioflavonoid 500 mg-200 mg tablet (Jeannette-C with Bioflavonoids) 1 each PO DAILY SUPPLEMENT 05/03/20 [History Last Taken 02/01/22] disability placard #1 ea 05/27/20 [Rx Last Taken Unknown] hydroxychloroquine 200 mg tablet (Plaquenil) 200 mg PO BID arthritis 07/06/20 [History Last Taken 01/31/22] calcitriol 0.25 mcg capsule (Rocaltrol) 0.25 mcg PO DAILY SUPPLEMENT 07/28/20 [History Last Taken 02/01/22] blood sugar diagnostic #10 ea 09/30/20 [History Last Taken Unknown] blood sugar diagnostic (OneTouch Ultra Test strips) #100 ea 10/17/20 [Rx Last Taken Unknown] valsartan 160 mg tablet 160 mg PO DAILY heart #90 tabs 03/28/21 [Rx Last Taken 02/02/22] isosorbide mononitrate 60 mg tablet,extended release 24 hr 60 mg PO LUNCH heart #90 tabs 03/31/21 [Rx Last Taken 02/01/22] coenzyme Q10 50 mg tablet 50 mg PO DAILY SUPPLEMENT 05/18/21 [History Last Taken 01/31/22] doxazosin 4 mg tablet (Cardura) 4 mg PO DAILY HEART 11/30/21 [History Last Taken 02/01/22] tramadol 50 mg tablet 50 mg PO DAILY MUSCLE RELAXANT 11/30/21 [History Last Taken 02/01/22] cholestyramine-aspartame 4 gram oral powder (Cholestyramine Light) 1 g PO BID diarrhea #239.4 grams 12/06/21 [Rx Last Taken Unknown] carvedilol 25 mg tablet 25 mg PO BID HEART #180 tabs 01/15/22 [Rx Last Taken 02/02/22] amlodipine 10 mg tablet 10 mg PO DAILY BP 02/02/22 [History Last Taken 02/01/22] hydralazine 100 mg tablet 100 mg PO TID ANXIETY 02/02/22 [History Last Taken 02/02/22] insulin glargine 100 unit/mL (3 mL) subcutaneous pen (Lantus Solostar U-100 Insulin) 25 unit subcut DAILY DM 02/02/22 [History Last Taken Unknown] omeprazole 20 mg capsule,delayed release 20 mg PO DAILY GERD 02/02/22 [History Last Taken 02/02/22] pen needle, diabetic 29 gauge x 1/2 (BD Ultra-Fine Original Pen Needle) 02/02/22 [History Last Taken Unknown] vitamin B complex and vitamin C no.20-folic acid 1 mg capsule (Renal Caps) 1 cap PO DAILY SUPPLEMENT 02/02/22 [History Last Taken 02/01/22] Allergy/AdvReac Type Severity Reaction Status Date / Time calcium Allergy Unknown constipatio Verified 02/02/22 13:49 n amiloride Allergy NEEDS Verified 02/02/22 13:49 FOLLOW-UP azithromycin Allergy NEEDS Verified 02/02/22 13:49 [From Zithromax Z-Rickey] FOLLOW-UP bumetanide Allergy Unknown Verified 02/02/22 13:49 chlorthalidone Allergy Unknown Verified 02/02/22 13:49 clonidine HCl [From Catapres] Allergy Rash Verified 02/02/22 13:49 diltiazem Allergy Unknown Verified 02/02/22 13:49 gemfibrozil Allergy Unknown Verified 02/02/22 13:49 lisinopril Allergy NEEDS Verified 02/02/22 13:49 FOLLOW-UP losartan [Losartan] Allergy Unknown Verified 02/02/22 13:49 minoxidil Allergy Unknown Verified 02/02/22 13:49 nifedipine Allergy Unknown Verified 02/02/22 13:49 simvastatin [From Zocor] Allergy Unknown Verified 02/02/22 13:49 triamterene [From Dyazide] Allergy Unknown Verified 02/02/22 13:49 valdecoxib [From Bextra] Allergy Unknown Verified 02/02/22 13:49 verapamil [Verapamil] Allergy Unknown Verified 02/02/22 13:49 atorvastatin AdvReac Unknown Swelling Verified 02/02/22 13:49 esomeprazole [From Nexium] AdvReac Unknown Swelling Verified 02/02/22 13:49 atorvastatin calcium AdvReac Leg Verified 02/02/22 13:49 [From Lipitor] cramps/aching celecoxib [From Celebrex] AdvReac Leg aching Verified 02/02/22 13:49 hydrochlorothiazide AdvReac Legs aching Verified 02/02/22 13:49 indapamide AdvReac Other Verified 02/02/22 13:49 insulin detemir AdvReac Unknown Verified 02/02/22 13:49 [From Levemir] lansoprazole [From Prevacid] AdvReac Legs aching Verified 02/02/22 13:49 metformin HCl AdvReac Diarrhea Verified 02/02/22 13:49 [From Glucophage] pravastatin AdvReac Legs aching Verified 02/02/22 13:49 rosuvastatin calcium AdvReac Legs aching Verified 02/02/22 13:49 [From Crestor] Family History Mother Diabetes Heart disease CVA (cerebral vascular accident) Myocardial infarction had [place] in 70s Father Cancer lung, passed at 70 Brother Kidney disease of renal failure at 65. Sister Diabetes Hypertension Mother Diabetes Heart disease CVA (cerebral vascular accident) Myocardial infarction age 70s Father Cancer lung CA Sister Hypertension Diabetes Surgical History gallbladder removed History of appendectomy History of arteriovenostomy for renal dialysis (~05/2020) History of arteriovenous graft History of colonoscopy S/P breast lumpectomy surgery on finger due to infection Social History household members: spouse housing: house pets and animals: Yes pets and animals: dog(s) Smoking Status: Never smoker alcohol intake: never substance use type: does not use caffeine: Yes Type: tea Number of servings: 4 what type of physical activity do you participate in: none seatbelt use: always do you feel safe at home: Yes ROS ROS Narrative 10 systems were reviewed with pertinent positives as noted in the HPI above. Physical Exam Const alert, oriented x3 and no apparent distress General Appearance: cooperative HEENT normocephalic and head/scalp atraumatic Eyes PERRL, EOMs intact bilaterally and conjunctivae normal Neck supple General: trachea midline Chest inspection of chest normal Resp normal respiratory effort Auscultation: Negative for rales, rhonchi or wheezes Cardio regular rate and regular rhythm GI normal to inspection, nondistended, normoactive bowel sounds GI Narrative: Currently receiving peritoneal dialysis. Extremity no clubbing, cyanosis or edema Skin no rashes or lesions noted Neuro oriented x3, CN's II-XII intact bilaterally, moves all extremities and no focal motor deficits Psych cooperative and affect normal Lab / Micro Data Result Diagrams: 02/03/22 02:45 02/03/22 11:07 Labs: Laboratory Results - last 24 hr 02/02/22 14:10: WBC 15.2 H, RBC 3.70 L, Hgb 12.2, Hct 34.8 L, MCV 94.1, MCH 33.0 H, MCHC 35.1, RDW Std Deviation 50.3 H, RDW Coeff of Pepe 14.9 H, Plt Count 187, MPV 12.1 H, Immature Gran % (Auto) 0.500, Neut % (Auto) 81.6 H, Lymph % (Auto) 9.1 L, Gilchrist % (Auto) 7.1, Eos % (Auto) 1.4, Baso % (Auto) 0.3, Absolute Neuts (auto) 12.4 H, Absolute Lymphs (auto) 1.38, Nucleated RBC % 0 02/02/22 14:10: Sodium 130 L, Potassium 4.4, Chloride 92 L, Carbon Dioxide 18.0 L, Anion Gap 20 H, BUN 75 H, Creatinine 16.40 H*, Estim Creat Clear Calc 2.45, Est GFR (MDRD) Af Amer 3 L, Est GFR (MDRD) Non-Af 2 L, BUN/Creatinine Ratio 4.6 L, Glucose 601 H*, Calcium 10.3 H, Total Bilirubin 0.60, AST 13 L, ALT 20, Alkaline Phosphatase 100, Total Protein 7.4, Albumin 3.2, Globulin 4.2, Albumin/Globulin Ratio 0.8 L, Lipase 1246 H 02/02/22 17:34: POC Glucose 388 H 02/02/22 17:35: Phosphorus 10.8 H*, Magnesium 2.6 02/02/22 17:35: Acetone Level NEGATIVE 02/02/22 18:21: POC Glucose 377 H 02/02/22 18:55: Sodium 138, Potassium 4.3, Chloride 103, Carbon Dioxide 18.0 L, Anion Gap 17 H, BUN 73 H, Creatinine 15.00 H*, Estim Creat Clear Calc 2.92, Est GFR (MDRD) Af Amer 3 L, Est GFR (MDRD) Non-Af 3 L, BUN/Creatinine Ratio 4.9 L, Glucose 266 H, Calcium 9.3 02/02/22 19:31: POC Glucose 188 H 02/02/22 20:42: POC Glucose 103 02/02/22 21:41: POC Glucose 160 H 02/02/22 22:41: POC Glucose 164 H 02/02/22 22:45: Sodium 140, Potassium 3.3 L, Chloride 103, Carbon Dioxide 20.0 L, Anion Gap 17 H, BUN 73 H, Creatinine 15.40 H*, Estim Creat Clear Calc 2.84, Est GFR (MDRD) Af Amer 3 L, Est GFR (MDRD) Non-Af 2 L, BUN/Creatinine Ratio 4.7 L, Glucose 179 H, Calcium 9.7 02/02/22 23:36: POC Glucose 134 H 02/03/22 00:39: POC Glucose 125 H 02/03/22 01:39: POC Glucose 86 02/03/22 02:32: POC Glucose 111 H 02/03/22 02:45: WBC 13.9 H, RBC 3.20 L, Hgb 10.2 L, Hct 30.1 L, MCV 94.1, MCH 31.9, MCHC 33.9, RDW Std Deviation 50.2 H, RDW Coeff of Pepe 15.1 H, Plt Count 163, MPV 12.1 H, Immature Gran % (Auto) 0.500, Neut % (Auto) 67.4, Lymph % (Auto) 15.2 L, Gilchrist % (Auto) 11.8 H, Eos % (Auto) 4.8, Baso % (Auto) 0.3, Absolute Neuts (auto) 9.4 H, Absolute Lymphs (auto) 2.12, Nucleated RBC % 0, Differential Comment SCANNED, Diff Path Review July02/03/22 02:45: Sodium 140, Potassium 3.6, Chloride 100, Carbon Dioxide 23.0, Anion Gap 17 H, BUN 68 H, Creatinine 14.90 H*, Estim Creat Clear Calc 2.94, Est GFR (MDRD) Af Amer 3 L, Est GFR (MDRD) Non-Af 3 L, BUN/Creatinine Ratio 4.6 L, Glucose 123 H, Calcium 9.2, Total Bilirubin 0.30, AST 23, ALT 20, Alkaline Phosphatase 79, Total Protein 6.1 L, Albumin 2.6 L, Globulin 3.5, Albumin/Globulin Ratio 0.7 L, Triglycerides 234 H, Cholesterol 141, LDL Cholesterol 64, VLDL Cholesterol 47 H, HDL Cholesterol 30 L, Lipase 997 H 02/03/22 03:49: POC Glucose 168 H 02/03/22 04:41: POC Glucose 191 H Radiology Impression Abdomen/Pelvis CT 02/02/22 14:56 IMPRESSION: Extensive atherosclerotic changes of the aorta and the major visceral branches. Status post cholecystectomy. Electronically Signed: Warren Coombs MD at 15:32 EST , Charges/Coding Visit Charges Inpatient E&M: 07919 Init Hosp L3
[2022-02-03 07:13] LABS: Anion Gap 15 (5-15); BUN 63 mg/dL (7-18); BUN/Creat Ratio 4.5 RATIO (10-20); Calcium,Total 9.9 mg/dL (8.5-10.1); Chloride 103 mmol/L (98-107); EST Glomerular Filtration Rate 3 mL/min (>60); Est Glom Filt Rate - Afr Amer 3 mL/min (>60); Glucose 130 mg/dL (74-106); Sodium Level 140 mmol/L (136-145)
[2022-02-03 07:26] LABS: Lactic Acid 1.1 mmol/L (0.4-1.9)
--- NOTE | 2022-02-03 07:45 | PN.HOSP_ITS ---
Subjective Subjective Patient was seen and examined today, her was in the room at the time my examination I talked with him. Patient still on an insulin drip, patient is on peritoneal dialysis at home, at this time this morning, patient's anion gap is closed. Potassium is 3. I talked with critical care about her care. Objective Data Objective Data Vital Signs: Vital Signs Temp Pulse Resp BP Pulse Ox O2 Del Method 97.9 F 74 12 144/56 H 98 Room Air 02/03/22 03:00 02/03/22 07:00 02/03/22 07:00 02/03/22 07:00 02/03/22 07:00 02/03/22 07:00 Oxygen Delivery Method Room Air Weight: 71 kg Body Mass Index (BMI) 25.8 Intake & Output: Intake and Output for Last 24 Hours 02/01/22 02/02/22 02/03/22 23:59 23:59 23:59 Intake Total 1275.78 / 1395.78 1203.69 / 1203.69 Balance 1275.78 / 1395.78 1203.69 / 1203.69 Lab / Micro Data Result Diagrams: 02/03/22 02:45 02/03/22 06:42 Labs: Laboratory Results - last 24 hr 02/02/22 14:10: WBC 15.2 H, RBC 3.70 L, Hgb 12.2, Hct 34.8 L, MCV 94.1, MCH 33.0 H, MCHC 35.1, RDW Std Deviation 50.3 H, RDW Coeff of Pepe 14.9 H, Plt Count 187, MPV 12.1 H, Immature Gran % (Auto) 0.500, Neut % (Auto) 81.6 H, Lymph % (Auto) 9.1 L, Maries % (Auto) 7.1, Eos % (Auto) 1.4, Baso % (Auto) 0.3, Absolute Neuts (auto) 12.4 H, Absolute Lymphs (auto) 1.38, Nucleated RBC % 0 02/02/22 14:10: Sodium 130 L, Potassium 4.4, Chloride 92 L, Carbon Dioxide 18.0 L, Anion Gap 20 H, BUN 75 H, Creatinine 16.40 H*, Estim Creat Clear Calc 2.45, Est GFR (MDRD) Af Amer 3 L, Est GFR (MDRD) Non-Af 2 L, BUN/Creatinine Ratio 4.6 L, Glucose 601 H*, Calcium 10.3 H, Total Bilirubin 0.60, AST 13 L, ALT 20, Alkaline Phosphatase 100, Total Protein 7.4, Albumin 3.2, Globulin 4.2, Albumi n/Globulin Ratio 0.8 L, Lipase 1246 H 02/02/22 17:34: POC Glucose 388 H 02/02/22 17:35: Phosphorus 10.8 H*, Magnesium 2.6 02/02/22 17:35: Acetone Level NEGATIVE 02/02/22 18:21: POC Glucose 377 H 02/02/22 18:55: Sodium 138, Potassium 4.3, Chloride 103, Carbon Dioxide 18.0 L, Anion Gap 17 H, BUN 73 H, Creatinine 15.00 H*, Estim Creat Clear Calc 2.92, Est GFR (MDRD) Af Amer 3 L, Est GFR (MDRD) Non-Af 3 L, BUN/Creatinine Ratio 4.9 L, Glucose 266 H, Calcium 9.3 02/02/22 19:31: POC Glucose 188 H 02/02/22 20:42: POC Glucose 103 02/02/22 21:41: POC Glucose 160 H 02/02/22 22:41: POC Glucose 164 H 02/02/22 22:45: Sodium 140, Potassium 3.3 L, Chloride 103, Carbon Dioxide 20.0 L , Anion Gap 17 H, BUN 73 H, Creatinine 15.40 H*, Estim Creat Clear Calc 2.84, Est GFR (MDRD) Af Amer 3 L, Est GFR (MDRD) Non-Af 2 L, BUN/Creatinine Ratio 4.7 L, Glucose 179 H, Calcium 9.7 02/02/22 23:36: POC Glucose 134 H 02/03/22 00:39: POC Glucose 125 H 02/03/22 01:39: POC Glucose 86 02/03/22 02:32: POC Glucose 111 H 02/03/22 02:45: WBC 13.9 H, RBC 3.20 L, Hgb 10.2 L, Hct 30.1 L, MCV 94.1, MCH 31.9, MCHC 33.9, RDW Std Deviation 50.2 H, RDW Coeff of Pepe 15.1 H, Plt Count 163, MPV 12.1 H, Immature Gran % (Auto) 0.500, Neut % (Auto) 67.4, Lymph % (Auto) 15.2 L, Maries % (Auto) 11.8 H, Eos % (Auto) 4.8, Baso % (Auto) 0.3, Abs olute Neuts (auto) 9.4 H, Absolute Lymphs (auto) 2.12, Nucleated RBC % 0, Differential Comment SCANNED, Diff Path Review July02/03/22 02:45: Sodium 140, Potassium 3.6, Chloride 100, Carbon Dioxide 23.0, Anion Gap 17 H, BUN 68 H, Creatinine 14.90 H*, Estim Creat Clear Calc 2.94, Est GFR (MDRD) Af Amer 3 L, Est GFR (MDRD) Non-Af 3 L, BUN/Creatinine Ratio 4.6 L, Glucose 123 H, Calcium 9.2, Total Bilirubin 0.30, AST 23, ALT 20, Alkaline Phosphatase 79, Total Protein 6.1 L, Albumin 2.6 L, Globulin 3.5, Albumin/Globulin Ratio 0.7 L, Triglycerides 234 H, Cholesterol 141, LDL Cholesterol 64, VLDL Cholesterol 47 H, HDL Cholesterol 30 L, Lipase 997 H 02/03/22 03:49: POC Glucose 168 H 02/03/22 04:41: POC Glucose 191 H 02/03/22 06:42: Sodium 140, Potassium 3.0 L, Chloride 103, Carbon Dioxide 22.0, Anion Gap 15, BUN 63 H, Creatinine 14.10 H*, Estim Creat Clear Calc 3.10, Est GFR (MDRD) Af Amer 3 L, Est GFR (MDRD) Non-Af 3 L, BUN/Creatinine Ratio 4.5 L, Glucose 130 H, Calcium 9.9 02/03/22 06:50: Lactic Acid 1.1 Radiography Diagnostic Testing: Radiology Impression Abdomen/Pelvis CT 02/02/22 14:56 IMPRESSION: Extensive atherosclerotic changes of the aorta and the major visceral branches. Status post cholecystectomy. Electronically Signed: Warren Coombs MD at 15:32 EST , Physical Exam Const alert, oriented x3, no apparent distress and average body habitus General Appearance: cooperative, well kempt and well developed Orientation / Consciousness: awake, oriented to person, oriented to place and oriented to time HEENT normocephalic, head/scalp atraumatic and moist oral mucous membranes Eyes PERRL, EOMs intact bilaterally and conjunctivae normal Neck supple, no JVD, thyroid normal and no carotid bruits General: trachea midline Resp normal respiratory effort, no retractions, no use of accessory muscles and clear to auscultation bilaterally Auscultation: Negative for rales, rhonchi or wheezes Cardio regular rate, regular rhythm, no murmurs, no rub and no gallops GI normal to inspection, nondistended, normoactive bowel sounds, soft to palpation, non-tender and non-distended GI Narrative: Patient has a peritoneal dialysis catheter Extremity normal to inspection and no clubbing, cyanosis or edema Skin no rashes or lesions noted General Skin Exam: no breakdown Neuro oriented x3, CN's II-XII intact bilaterally, no focal motor deficits and no sensory deficits noted Sensorium / Orientation: awake, alert, oriented to person, oriented to place and oriented to time Speech: speech normal Psych affect normal Assessment & Plan Assessment/Plan (1) C. difficile diarrhea: PLAN: Plan 1. DKA due to uncontrolled type 2 diabetes-patient will continue on insulin drip at this time, labs will be monitored, she is being seen by critical care #2 C. difficile colitis-patient is on oral vancomycin #3 end-stage renal disease-patient is on peritoneal dialysis #4 hypertension-patient remains on her present medications #5 hyperphosphatemia-this should correct with peritoneal dialysis #6 chronic diastolic congestive heart failure-patient will remain on her present medications Charges/Coding Visit Charges Inpatient E&M: 94875 Subs Hosp L2
[2022-02-03 07:58] LABS: Hemoglobin A1c 8.2 % (3.8-5.6)
[2022-02-03] MEDS: Potassium Chloride Oral Tablet 20 MEQ 60 MEQ PO (07:59)
[2022-02-03 09:10] LABS: Bedside Glucose 87 mg/dL (74-106)
[2022-02-03] MEDS: Doxazosin 4 MG Tablet PO (10:03)
[2022-02-03] MEDS: Cholestyramine/Sucrose 4 GM/PACKET PO ×2 (10:04→23:21)
[2022-02-03] MEDS: Calcitriol 0.25 MCG Capsule PO (10:04)
[2022-02-03] MEDS: amLODIPine 10 MG Tablet PO (10:04)
[2022-02-03] MEDS: Heparin Injection (Vial) 5,000 UNIT/ML VIAL 5000 UNIT SC ×2 (10:04→23:22)
[2022-02-03] MEDS: Hydroxychloroquine 200 MG Tablet PO ×2 (10:04→23:21)
[2022-02-03] MEDS: Carvedilol 25 MG Tablet PO ×2 (10:04→23:21)
[2022-02-03 10:16] LABS: Bedside Glucose 157 mg/dL (74-106)
[2022-02-03 10:16] LABS: Bedside Glucose 196 mg/dL (74-106)
[2022-02-03 10:31] LABS: Bedside Glucose 65 mg/dL (74-106)
[2022-02-03 11:43] LABS: Anion Gap 14 (5-15); BUN 63 mg/dL (7-18); BUN/Creat Ratio 4.5 RATIO (10-20); Calcium,Total 9.1 mg/dL (8.5-10.1); Chloride 101 mmol/L (98-107); EST Glomerular Filtration Rate 3 mL/min (>60); Est Glom Filt Rate - Afr Amer 3 mL/min (>60); Glucose 102 mg/dL (74-106); Phosphorus 8.7 mg/dL (2.5-4.9); Sodium Level 137 mmol/L (136-145)
--- NOTE | 2022-02-03 12:05 | CON.PCM.RE_ITS ---
HPI Consult Data Date of Consult: 02/03/22 HPI Narrative HPI Narrative: KAYLI PELAEZ, is a 76 F who presents [facility] Medical History (HFpEF) heart failure with preserved ejection fraction Acute on chronic diastolic (congestive) heart failure Ambulates with cane Anemia Anemia of chronic disease Bilateral edema of lower extremity Blackout C. difficile diarrhea Cardiology follow-up encounter Cataracts, bilateral Chronic diarrhea Chronic diastolic (congestive) heart failure Chronic osteoarthritis Chronic renal failure, stage 4 (severe) Chronic renal failure, stage 5 CPAP (continuous positive airway pressure) dependence Diarrhea Dietary restriction Difficulty swallowing Diverticular disease Easy bruising ESRD (end stage renal disease) Essential (primary) hypertension Eye pressure Flatulence, eructation and gas pain Gastritis determined by endoscopy GERD (gastroesophageal reflux disease) GI bleed Health care maintenance High cholesterol History of CHF (congestive heart failure) History of diverticulosis History of echocardiogram History of edema History of pain when walking History of renal disease History of stress test HLD (hyperlipidemia) HTN (hypertension), malignant Hx of mini strokes Hyperkalemia Hyperparathyroidism Hypersomnolence Hypotension Intraocular pressure increase Left carotid bruit Leg cramps Malaise and fatigue Morbid obesity Neuropathy Non-smoker KHANG (obstructive sleep apnea) Problem with dialysis access Problem with dialysis access Pseudoaneurysm of arteriovenous dialysis fistula Psoriasis Renal artery atherosclerosis Rheumatoid arthritis Secondary pulmonary arterial hypertension Shortness of breath on exertion Syncope Systolic hypertension with cerebrovascular disease TIA (transient ischemic attack) Type 2 diabetes mellitus treated with insulin Uncontrolled hypertension Home Medications ascorbate calcium-bioflavonoid 500 mg-200 mg tablet (Jeannette-C with Bioflavonoids) 1 each PO DAILY SUPPLEMENT 05/03/20 [History Last Taken 02/01/22] disability placard #1 ea 05/27/20 [Rx Last Taken Unknown] hydroxychloroquine 200 mg tablet (Plaquenil) 200 mg PO BID arthritis 07/06/20 [History Last Taken 01/31/22] calcitriol 0.25 mcg capsule (Rocaltrol) 0.25 mcg PO DAILY SUPPLEMENT 07/28/20 [History Last Taken 02/01/22] blood sugar diagnostic #10 ea 09/30/20 [History Last Taken Unknown] blood sugar diagnostic (Norse Ultra Test strips) #100 ea 10/17/20 [Rx Last Taken Unknown] valsartan 160 mg tablet 160 mg PO DAILY heart #90 tabs 03/28/21 [Rx Last Taken 02/02/22] isosorbide mononitrate 60 mg tablet,extended release 24 hr 60 mg PO LUNCH heart #90 tabs 03/31/21 [Rx Last Taken 02/01/22] coenzyme Q10 50 mg tablet 50 mg PO DAILY SUPPLEMENT 05/18/21 [History Last Taken 01/31/22] doxazosin 4 mg tablet (Cardura) 4 mg PO DAILY HEART 11/30/21 [History Last Taken 02/01/22] tramadol 50 mg tablet 50 mg PO DAILY MUSCLE RELAXANT 11/30/21 [History Last Taken 02/01/22] cholestyramine-aspartame 4 gram oral powder (Cholestyramine Light) 1 g PO BID diarrhea #239.4 grams 12/06/21 [Rx Last Taken Unknown] carvedilol 25 mg tablet 25 mg PO BID HEART #180 tabs 01/15/22 [Rx Last Taken 02/02/22] amlodipine 10 mg tablet 10 mg PO DAILY BP 02/02/22 [History Last Taken 02/01/22] hydralazine 100 mg tablet 100 mg PO TID ANXIETY 02/02/22 [History Last Taken 02/02/22] insulin glargine 100 unit/mL (3 mL) subcutaneous pen (Lantus Solostar U-100 Insulin) 25 unit subcut DAILY DM 02/02/22 [History Last Taken Unknown] omeprazole 20 mg capsule,delayed release 20 mg PO DAILY GERD 02/02/22 [History Last Taken 02/02/22] pen needle, diabetic 29 gauge x 1/2 (BD Ultra-Fine Original Pen Needle) 02/02/22 [History Last Taken Unknown] vitamin B complex and vitamin C no.20-folic acid 1 mg capsule (Renal Caps) 1 cap PO DAILY SUPPLEMENT 02/02/22 [History Last Taken 02/01/22] Allergy/AdvReac Type Severity Reaction Status Date / Time calcium Allergy Unknown constipatio Verified 02/02/22 13:49 n amiloride Allergy NEEDS Verified 02/02/22 13:49 FOLLOW-UP azithromycin Allergy NEEDS Verified 02/02/22 13:49 [From Zithromax Z-Rickey] FOLLOW-UP bumetanide Allergy Unknown Verified 02/02/22 13:49 chlorthalidone Allergy Unknown Verified 02/02/22 13:49 clonidine HCl [From Catapres] Allergy Rash Verified 02/02/22 13:49 diltiazem Allergy Unknown Verified 02/02/22 13:49 gemfibrozil Allergy Unknown Verified 02/02/22 13:49 lisinopril Allergy NEEDS Verified 02/02/22 13:49 FOLLOW-UP losartan [Losartan] Allergy Unknown Verified 02/02/22 13:49 minoxidil Allergy Unknown Verified 02/02/22 13:49 nifedipine Allergy Unknown Verified 02/02/22 13:49 simvastatin [From Zocor] Allergy Unknown Verified 02/02/22 13:49 triamterene [From Dyazide] Allergy Unknown Verified 02/02/22 13:49 valdecoxib [From Bextra] Allergy Unknown Verified 02/02/22 13:49 verapamil [Verapamil] Allergy Unknown Verified 02/02/22 13:49 atorvastatin AdvReac Unknown Swelling Verified 02/02/22 13:49 esomeprazole [From Nexium] AdvReac Unknown Swelling Verified 02/02/22 13:49 atorvastatin calcium AdvReac Leg Verified 02/02/22 13:49 [From Lipitor] cramps/aching celecoxib [From Celebrex] AdvReac Leg aching Verified 02/02/22 13:49 hydrochlorothiazide AdvReac Legs aching Verified 02/02/22 13:49 indapamide AdvReac Other Verified 02/02/22 13:49 insulin detemir AdvReac Unknown Verified 02/02/22 13:49 [From Levemir] lansoprazole [From Prevacid] AdvReac Legs aching Verified 02/02/22 13:49 metformin HCl AdvReac Diarrhea Verified 02/02/22 13:49 [From Glucophage] pravastatin AdvReac Legs aching Verified 02/02/22 13:49 rosuvastatin calcium AdvReac Legs aching Verified 02/02/22 13:49 [From Crestor] Family History Mother Diabetes Heart disease CVA (cerebral vascular accident) Myocardial infarction had [place] in 70s Father Cancer lung, passed at 70 Brother Kidney disease of renal failure at 65. Sister Diabetes Hypertension Mother Diabetes Heart disease CVA (cerebral vascular accident) Myocardial infarction age 70s Father Cancer lung CA Sister Hypertension Diabetes Surgical History gallbladder removed History of appendectomy History of arteriovenostomy for renal dialysis (~05/2020) History of arteriovenous graft History of colonoscopy S/P breast lumpectomy surgery on finger due to infection Social History household members: spouse housing: house pets and animals: Yes pets and animals: dog(s) Smoking Status: Never smoker alcohol intake: never substance use type: does not use caffeine: Yes Type: tea Number of servings: 4 what type of physical activity do you participate in: none seatbelt use: always do you feel safe at home: Yes Lab / Micro Data Result Diagrams: 02/03/22 02:45 02/03/22 11:07 Labs: Laboratory Results - last 24 hr 02/02/22 14:10: WBC 15.2 H, RBC 3.70 L, Hgb 12.2, Hct 34.8 L, MCV 94.1, MCH 33.0 H, MCHC 35.1, RDW Std Deviation 50.3 H, RDW Coeff of Pepe 14.9 H, Plt Count 187, MPV 12.1 H, Immature Gran % (Auto) 0.500, Neut % (Auto) 81.6 H, Lymph % (Auto) 9.1 L, [place] % (Auto) 7.1, Eos % (Auto) 1.4, Baso % (Auto) 0.3, Absolute Neuts (auto) 12.4 H, Absolute Lymphs (auto) 1.38, Nucleated RBC % 0 02/02/22 14:10: Sodium 130 L, Potassium 4.4, Chloride 92 L, Carbon Dioxide 18.0 L, Anion Gap 20 H, BUN 75 H, Creatinine 16.40 H*, Estim Creat Clear Calc 2.45, Est GFR (MDRD) Af Amer 3 L, Est GFR (MDRD) Non-Af 2 L, BUN/Creatinine Ratio 4.6 L, Glucose 601 H*, Calcium 10.3 H, Total Bilirubin 0.60, AST 13 L, ALT 20, Al kaline Phosphatase 100, Total Protein 7.4, Albumin 3.2, Globulin 4.2, Albumin/Globulin Ratio 0.8 L, Lipase 1246 H 02/02/22 17:34: POC Glucose 388 H 02/02/22 17:35: Phosphorus 10.8 H*, Magnesium 2.6 02/02/22 17:35: Acetone Level NEGATIVE 02/02/22 18:21: POC Glucose 377 H 02/02/22 18:55: Sodium 138, Potassium 4.3, Chloride 103, Carbon Dioxide 18.0 L, Anion Gap 17 H, BUN 73 H, Creatinine 15.00 H*, Estim Creat Clear Calc 2.92, Est GFR (MDRD) Af Amer 3 L, Est GFR (MDRD) Non-Af 3 L, BUN/Creatinine Ratio 4.9 L, Glucose 266 H, Calcium 9.3 02/02/22 19:31: POC Glucose 188 H 02/02/22 20:42: POC Glucose 103 02/02/22 21:41: POC Glucose 160 H 02/02/22 22:41: POC Glucose 164 H 02/02/22 22:45: Sodium 140, Potassium 3.3 L, Chloride 103, Carbon Dioxide 20.0 L , Anion Gap 17 H, BUN 73 H, Creatinine 15.40 H*, Estim Creat Clear Calc 2.84, Est GFR (MDRD) Af Amer 3 L, Est GFR (MDRD) Non-Af 2 L, BUN/Creatinine Ratio 4.7 L, Glucose 179 H, Calcium 9.7 02/02/22 23:36: POC Glucose 134 H 02/03/22 00:39: POC Glucose 125 H 02/03/22 01:39: POC Glucose 86 02/03/22 02:32: POC Glucose 111 H 02/03/22 02:45: WBC 13.9 H, RBC 3.20 L, Hgb 10.2 L, Hct 30.1 L, MCV 94.1, MCH 31.9, MCHC 33.9, RDW Std Deviation 50.2 H, RDW Coeff of Pepe 15.1 H, Plt Count 163, MPV 12.1 H, Immature Gran % (Auto) 0.500, Neut % (Auto) 67.4, Lymph % (Auto) 15.2 L, [place] % (Auto) 11.8 H, Eos % (Auto) 4.8, Baso % (Auto) 0.3, Absolute Neuts (auto) 9.4 H, Absolute Lymphs (auto) 2.12, Nucleated RBC % 0, Differential Comment SCANNED, Diff Path Review July02/03/22 02:45: Sodium 140, Potassium 3.6, Chloride 100, Carbon Dioxide 23.0, Anion Gap 17 H, BUN 68 H, Creatinine 14.90 H*, Estim Creat Clear Calc 2.94, Est GFR (MDRD) Af Amer 3 L, Est GFR (MDRD) Non-Af 3 L, BUN/Creatinine Ratio 4.6 L, Glucose 123 H, Calcium 9.2, Total Bilirubin 0.30, AST 23, ALT 20, Alkaline Phosphatase 79, Total Protein 6.1 L, Albumin 2.6 L, Globulin 3.5, Albumin/Globulin Ratio 0.7 L, Triglycerides 234 H, Cholesterol 141, LDL Cholesterol 64, VLDL Cholesterol 47 H, HDL Cholesterol 30 L, Lipase 997 H 02/03/22 02:45: Hemoglobin A1c 8.2 H 02/03/22 03:49: POC Glucose 168 H 02/03/22 04:41: POC Glucose 191 H 02/03/22 05:40: POC Glucose 157 H 02/03/22 06:40: POC Glucose 196 H 02/03/22 06:42: Sodium 140, Potassium 3.0 L, Chloride 103, Carbon Dioxide 22.0, Anion Gap 15, BUN 63 H, Creatinine 14.10 H*, Estim Creat Clear Calc 3.10, Est GFR (MDRD) Af Amer 3 L, Est GFR (MDRD) Non-Af 3 L, BUN/Creatinine Ratio 4.5 L, Glucose 130 H, Calcium 9.9 02/03/22 06:50: Lactic Acid 1.1 02/03/22 07:56: POC Glucose 87 02/03/22 08:59: POC Glucose 65 L 02/03/22 11:07: Sodium 137, Potassium 4.0, Chloride 101, Carbon Dioxide 22.0, Anion Gap 14, BUN 63 H, Creatinine 14.10 H*, Estim Creat Clear Calc 3.10, Est GFR (MDRD) Af Amer 3 L, Est GFR (MDRD) Non-Af 3 L, BUN/Creatinine Ratio 4.5 L, Glucose 102, Calcium 9.1, Phosphorus 8.7 H Radiology Impression Abdomen/Pelvis CT 02/02/22 14:56 IMPRESSION: Extensive atherosclerotic changes of the aorta and the major visceral branches. Status post cholecystectomy. Electronically Signed: Warren Coombs MD at 15:32 EST ,
--- NOTE | 2022-02-03 12:32 | PCM.CONS.R ---
Assessment & Plan Assessment/Plan (1) ESRD (end stage renal disease) on dialysis: PLAN: Continue CCPD. Use all 1.5% dextrose 2 L fill volume 5 exchanges over 10 hours. Send cell counts of PD fluid tomorrow morning since effluent not saved from last night. (2) C. difficile diarrhea: PLAN: On oral vancomycin (3) DKA (diabetic ketoacidosis): PLAN: On insulin drip. Sugars stable. (4) Hypotension: PLAN: Continue IV fluids. Blood pressure stable. Decrease IV fluid rate to 50 cc an hour since patient tends to get fluid overloaded. (5) Anemia in chronic kidney disease (CKD): QUALIFIERS: Chronic kidney disease stage: stage 4 (severe) Qualified Code(s): N18.4 - Chronic kidney disease, stage 4 (severe); D63.1 - Anemia in chronic kidney disease PLAN: Hemoglobin stable (6) Type 2 diabetes mellitus: QUALIFIERS: Diabetes mellitus complication status: with other specified complication Diabetes mellitus senior care insulin use: with exterminator helper use Qualified Code(s): E11.69 - Type 2 diabetes mellitus with other specified complication; Z79.4 - correction (current) use of insulin PLAN: Primary service (7) HLD (hyperlipidemia): QUALIFIERS: Qualified Code(s): E78.0 - Pure hypercholesterolemia (8) Acute pancreatitis: (9) Hypokalemia: PLAN: K3.0 improved to 4.0 with potassium supplement. (10) Hyperphosphatemia: PLAN: Resume phosphate binders follow low phosphorus diet HPI Consult Data Date of Consult: 02/03/22 HPI Narrative Reason for Consultation: ESRD on CCPD HPI Narrative: KAYLI PELAEZ, is a 76 F known to me with ESRD due to diabetes on CCPD. She presents with diffuse abdominal pain present for the past month and chronic diarrhea. She was seen by GI for her chronic diarrhea. She had stool for C. difficile positive on January 31. She was not treated for this at the time of admission. She denied any fever or chills. She had nausea and dry emesis. Abdominal pain is improved after receiving pain medications last night. She denied cloudy fluid with her PD. She was admitted to ICU for DKA on insulin drip. Sugar was 600+ on admission with stable sugars now. She has a history of hypertension. Blood pressure low normal for her. She is receiving IV fluids. She complains of a headache after receiving all her medications at once. Potassium was low at 3.0 treated with KCl 60 mEq today. Patient has been using all 2.5% solution at home. This was adjusted due to lower extremity edema and shortness of breath. Today on exam she appears dehydrated with no edema or shortness of breath. We will plan to switch her dextrose solution to all 1.5% solution today. [facility] Medical History (HFpEF) heart failure with preserved ejection fraction Acute on chronic diastolic (congestive) heart failure Ambulates with cane Anemia Anemia of chronic disease Bilateral edema of lower extremity Blackout C. difficile diarrhea Cardiology follow-up encounter Cataracts, bilateral Chronic diarrhea Chronic diastolic (congestive) heart failure Chronic osteoarthritis Chronic renal failure, stage 4 (severe) Chronic renal failure, stage 5 CPAP (continuous positive airway pressure) dependence Diarrhea Dietary restriction Difficulty swallowing Diverticular disease Easy bruising ESRD (end stage renal disease) Essential (primary) hypertension Eye pressure Flatulence, eructation and gas pain Gastritis determined by endoscopy GERD (gastroesophageal reflux disease) GI bleed Health care maintenance High cholesterol History of CHF (congestive heart failure) History of diverticulosis History of echocardiogram History of edema History of pain when walking History of renal disease History of stress test HLD (hyperlipidemia) HTN (hypertension), malignant Hx of mini strokes Hyperkalemia Hyperparathyroidism Hypersomnolence Hypotension Intraocular pressure increase Left carotid bruit Leg cramps Malaise and fatigue Morbid obesity Neuropathy Non-smoker KHANG (obstructive sleep apnea) Problem with dialysis access Problem with dialysis access Pseudoaneurysm of arteriovenous dialysis fistula Psoriasis Renal artery atherosclerosis Rheumatoid arthritis Secondary pulmonary arterial hypertension Shortness of breath on exertion Syncope Systolic hypertension with cerebrovascular disease TIA (transient ischemic attack) Type 2 diabetes mellitus treated with insulin Uncontrolled hypertension Home Medications ascorbate calcium-bioflavonoid 500 mg-200 mg tablet (Jeannette-C with Bioflavonoids) 1 each PO DAILY SUPPLEMENT 05/03/20 [History Last Taken 02/01/22] disability placard #1 ea 05/27/20 [Rx Last Taken Unknown] hydroxychloroquine 200 mg tablet (Plaquenil) 200 mg PO BID arthritis 07/06/20 [History Last Taken 01/31/22] calcitriol 0.25 mcg capsule (Rocaltrol) 0.25 mcg PO DAILY SUPPLEMENT 07/28/20 [History Last Taken 02/01/22] blood sugar diagnostic #10 ea 09/30/20 [History Last Taken Unknown] blood sugar diagnostic (Drug Response Dxuch Ultra Test strips) #100 ea 10/17/20 [Rx Last Taken Unknown] valsartan 160 mg tablet 160 mg PO DAILY heart #90 tabs 03/28/21 [Rx Last Taken 02/02/22] isosorbide mononitrate 60 mg tablet,extended release 24 hr 60 mg PO LUNCH heart #90 tabs 03/31/21 [Rx Last Taken 02/01/22] coenzyme Q10 50 mg tablet 50 mg PO DAILY SUPPLEMENT 05/18/21 [History Last Taken 01/31/22] doxazosin 4 mg tablet (Cardura) 4 mg PO DAILY HEART 11/30/21 [History Last Taken 02/01/22] tramadol 50 mg tablet 50 mg PO DAILY MUSCLE RELAXANT 11/30/21 [History Last Taken 02/01/22] cholestyramine-aspartame 4 gram oral powder (Cholestyramine Light) 1 g PO BID diarrhea #239.4 grams 12/06/21 [Rx Last Taken Unknown] carvedilol 25 mg tablet 25 mg PO BID HEART #180 tabs 01/15/22 [Rx Last Taken 02/02/22] amlodipine 10 mg tablet 10 mg PO DAILY BP 02/02/22 [History Last Taken 02/01/22] hydralazine 100 mg tablet 100 mg PO TID ANXIETY 02/02/22 [History Last Taken 02/02/22] insulin glargine 100 unit/mL (3 mL) subcutaneous pen (Lantus Solostar U-100 Insulin) 25 unit subcut DAILY DM 02/02/22 [History Last Taken Unknown] omeprazole 20 mg capsule,delayed release 20 mg PO DAILY GERD 02/02/22 [History Last Taken 02/02/22] pen needle, diabetic 29 gauge x 1/2 (BD Ultra-Fine Original Pen Needle) 02/02/22 [History Last Taken Unknown] vitamin B complex and vitamin C no.20-folic acid 1 mg capsule (Renal Caps) 1 cap PO DAILY SUPPLEMENT 02/02/22 [History Last Taken 02/01/22] Allergy/AdvReac Type Severity Reaction Status Date / Time calcium Allergy Unknown constipatio Verified 02/02/22 13:49 n amiloride Allergy NEEDS Verified 02/02/22 13:49 FOLLOW-UP azithromycin Allergy NEEDS Verified 02/02/22 13:49 [From Zithromax Z-Rickey] FOLLOW-UP bumetanide Allergy Unknown Verified 02/02/22 13:49 chlorthalidone Allergy Unknown Verified 02/02/22 13:49 clonidine HCl [From Catapres] Allergy Rash Verified 02/02/22 13:49 diltiazem Allergy Unknown Verified 02/02/22 13:49 gemfibrozil Allergy Unknown Verified 02/02/22 13:49 lisinopril Allergy NEEDS Verified 02/02/22 13:49 FOLLOW-UP losartan [Losartan] Allergy Unknown Verified 02/02/22 13:49 minoxidil Allergy Unknown Verified 02/02/22 13:49 nifedipine Allergy Unknown Verified 02/02/22 13:49 simvastatin [From Zocor] Allergy Unknown Verified 02/02/22 13:49 triamterene [From Dyazide] Allergy Unknown Verified 02/02/22 13:49 valdecoxib [From Bextra] Allergy Unknown Verified 02/02/22 13:49 verapamil [Verapamil] Allergy Unknown Verified 02/02/22 13:49 atorvastatin AdvReac Unknown Swelling Verified 02/02/22 13:49 esomeprazole [From Nexium] AdvReac Unknown Swelling Verified 02/02/22 13:49 atorvastatin calcium AdvReac Leg Verified 02/02/22 13:49 [From Lipitor] cramps/aching celecoxib [From Celebrex] AdvReac Leg aching Verified 02/02/22 13:49 hydrochlorothiazide AdvReac Legs aching Verified 02/02/22 13:49 indapamide AdvReac Other Verified 02/02/22 13:49 insulin detemir AdvReac Unknown Verified 02/02/22 13:49 [From Levemir] lansoprazole [From Prevacid] AdvReac Legs aching Verified 02/02/22 13:49 metformin HCl AdvReac Diarrhea Verified 02/02/22 13:49 [From Glucophage] pravastatin AdvReac Legs aching Verified 02/02/22 13:49 rosuvastatin calcium AdvReac Legs aching Verified 02/02/22 13:49 [From Crestor] Family History Mother Diabetes Heart disease CVA (cerebral vascular accident) Myocardial infarction had NE in 70s Father Cancer lung, passed at 70 Brother Kidney disease of renal failure at 65. Sister Diabetes Hypertension Mother Diabetes Heart disease CVA (cerebral vascular accident) Myocardial infarction age 70s Father Cancer lung CA Sister Hypertension Diabetes Surgical History gallbladder removed History of appendectomy History of arteriovenostomy for renal dialysis (~05/2020) History of arteriovenous graft History of colonoscopy S/P breast lumpectomy surgery on finger due to infection Social History household members: spouse housing: house pets and animals: Yes pets and animals: dog(s) Smoking Status: Never smoker alcohol intake: never substance use type: does not use caffeine: Yes Type: tea Number of servings: 4 what type of physical activity do you participate in: none seatbelt use: always do you feel safe at home: Yes ROS Constitutional Constitutional: Reports malaise and weakness; Denies chills or fever(s) Eyes Eyes: Denies change in vision ENT HEENT: Reports dry mouth Cardiovascular Cardiovascular: Denies chest pain, dyspnea on exertion, edema, palpitations or syncope Respiratory/Chest Respiratory/Chest: Denies dry cough Gastrointestinal Gastrointestinal: Reports abdominal pain, anorexia, diarrhea, dry heaves and nausea; Denies hematochezia, melena or vomiting Genitourinary Genitourinary: Denies difficulty urinating Musculoskeletal Musculoskeletal: Denies abnormal gait or joint swelling Integumentary Integumentary: Denies rash Neurologic Neurologic: Denies abnormal gait or confusion Psychiatric Psychiatric: Denies anxiety or confusion Hematologic/Lymphatic Hematologic/Lymphatic: Reports anemia Physical Exam Const alert and oriented x3 Constitutional Narrative: Dry mouth General Appearance: well developed HEENT normocephalic Neck supple Cardio regular rate GI non-tender and non-distended Auscultation: normoactive bowel sounds Skin No no wounds General Skin Exam: Negative for ecchymosis or erythema Neuro CN's II-XII intact bilaterally Sensorium / Orientation: awake and alert Psych cooperative Lab / Micro Data Result Diagrams: 02/03/22 02:45 02/03/22 11:07 Labs: Laboratory Results - last 24 hr 02/02/22 14:10: WBC 15.2 H, RBC 3.70 L, Hgb 12.2, Hct 34.8 L, MCV 94.1, MCH 33.0 H, MCHC 35.1, RDW Std Deviation 50.3 H, RDW Coeff of Pepe 14.9 H, Plt Count 187, MPV 12.1 H, Immature Gran % (Auto) 0.500, Neut % (Auto) 81.6 H, Lymph % (Auto) 9.1 L, Baldwin % (Auto) 7.1, Eos % (Auto) 1.4, Baso % (Auto) 0.3, Absolute Neuts (auto) 12.4 H, Absolute Lymphs (auto) 1.38, Nucleated RBC % 0 02/02/22 14:10: Sodium 130 L, Potassium 4.4, Chloride 92 L, Carbon Dioxide 18.0 L, Anion Gap 20 H, BUN 75 H, Creatinine 16.40 H*, Estim Creat Clear Calc 2.45, Est GFR (MDRD) Af Amer 3 L, Est GFR (MDRD) Non-Af 2 L, BUN/Creatinine Ratio 4.6 L, Glucose 601 H*, Calcium 10.3 H, Total Bilirubin 0.60, AST 13 L, ALT 20, Alkaline Phosphatase 100, Total Protein 7.4, Albumin 3.2, Globulin 4.2, Albumin/Globulin Ratio 0.8 L, Lipase 1246 H 02/02/22 17:34: POC Glucose 388 H 02/02/22 17:35: Phosphorus 10.8 H*, Magnesium 2.6 02/02/22 17:35: Acetone Level NEGATIVE 02/02/22 18:21: POC Glucose 377 H 02/02/22 18:55: Sodium 138, Potassium 4.3, Chloride 103, Carbon Dioxide 18.0 L, Anion Gap 17 H, BUN 73 H, Creatinine 15.00 H*, Estim Creat Clear Calc 2.92, Est GFR (MDRD) Af Amer 3 L, Est GFR (MDRD) Non-Af 3 L, BUN/Creatinine Ratio 4.9 L, Glucose 266 H, Calcium 9.3 02/02/22 19:31: POC Glucose 188 H 02/02/22 20:42: POC Glucose 103 02/02/22 21:41: POC Glucose 160 H 02/02/22 22:41: POC Glucose 164 H 02/02/22 22:45: Sodium 140, Potassium 3.3 L, Chloride 103, Carbon Dioxide 20.0 L, Anion Gap 17 H, BUN 73 H, Creatinine 15.40 H*, Estim Creat Clear Calc 2.84, Est GFR (MDRD) Af Amer 3 L, Est GFR (MDRD) Non-Af 2 L, BUN/Creatinine Ratio 4.7 L, Glucose 179 H, Calcium 9.7 02/02/22 23:36: POC Glucose 134 H 02/03/22 00:39: POC Glucose 125 H 02/03/22 01:39: POC Glucose 86 02/03/22 02:32: POC Glucose 111 H 02/03/22 02:45: WBC 13.9 H, RBC 3.20 L, Hgb 10.2 L, Hct 30.1 L, MCV 94.1, MCH 31.9, MCHC 33.9, RDW Std Deviation 50.2 H, RDW Coeff of Pepe 15.1 H, Plt Count 163, MPV 12.1 H, Immature Gran % (Auto) 0.500, Neut % (Auto) 67.4, Lymph % (Auto) 15.2 L, Baldwin % (Auto) 11.8 H, Eos % (Auto) 4.8, Baso % (Auto) 0.3, Absolute Neuts (auto) 9.4 H, Absolute Lymphs (auto) 2.12, Nucleated RBC % 0, Differential Comment SCANNED, Diff Path Review July02/03/22 02:45: Sodium 140, Potassium 3.6, Chloride 100, Carbon Dioxide 23.0, Anion Gap 17 H, BUN 68 H, Creatinine 14.90 H*, Estim Creat Clear Calc 2.94, Est GFR (MDRD) Af Amer 3 L, Est GFR (MDRD) Non-Af 3 L, BUN/Creatinine Ratio 4.6 L, Glucose 123 H, Calcium 9.2, Total Bilirubin 0.30, AST 23, ALT 20, Alkaline Phosphatase 79, Total Protein 6.1 L, Albumin 2.6 L, Globulin 3.5, Albumin/Globulin Ratio 0.7 L, Triglycerides 234 H, Cholesterol 141, LDL Cholesterol 64, VLDL Cholesterol 47 H, HDL Cholesterol 30 L, Lipase 997 H 02/03/22 02:45: Hemoglobin A1c 8.2 H 02/03/22 03:49: POC Glucose 168 H 02/03/22 04:41: POC Glucose 191 H 02/03/22 05:40: POC Glucose 157 H 02/03/22 06:40: POC Glucose 196 H 02/03/22 06:42: Sodium 140, Potassium 3.0 L, Chloride 103, Carbon Dioxide 22.0, Anion Gap 15, BUN 63 H, Creatinine 14.10 H*, Estim Creat Clear Calc 3.10, Est GFR (MDRD) Af Amer 3 L, Est GFR (MDRD) Non-Af 3 L, BUN/Creatinine Ratio 4.5 L, Glucose 130 H, Calcium 9.9 02/03/22 06:50: Lactic Acid 1.1 02/03/22 07:56: POC Glucose 87 02/03/22 08:59: POC Glucose 65 L 02/03/22 11:07: Sodium 137, Potassium 4.0, Chloride 101, Carbon Dioxide 22.0, Anion Gap 14, BUN 63 H, Creatinine 14.10 H*, Estim Creat Clear Calc 3.10, Est GFR (MDRD) Af Amer 3 L, Est GFR (MDRD) Non-Af 3 L, BUN/Creatinine Ratio 4.5 L, Glucose 102, Calcium 9.1, Phosphorus 8.7 H Radiology Impression Abdomen/Pelvis CT 02/02/22 14:56 IMPRESSION: Extensive atherosclerotic changes of the aorta and the major visceral branches. Status post cholecystectomy. Electronically Signed: Warren Coombs MD at 15:32 EST ,
[2022-02-03] MEDS: Acetaminophen 325 MG Tablet 650 MG PO (12:42)
[2022-02-03] MEDS: Insulin Glargine-YFGN 100 UNIT/ML Pen 15 UNIT SC ×2 (12:51→23:22)
[2022-02-03] MEDS: Folic Acid/Vitamin B Comp W-C 1 Capsule 1 CAP PO (14:22)
[2022-02-03] MEDS: Lactated Ringers 1,000 ML 999 ML IV (14:23)
[2022-02-03 15:55] LABS: Bedside Glucose 98 mg/dL (74-106)
[2022-02-03 15:55] LABS: Bedside Glucose 76 mg/dL (74-106)
[2022-02-03 16:35] LABS: Bedside Glucose 102 mg/dL (74-106)
--- NOTE | 2022-02-03 16:45 | CASEMGMT ---
CHANO CORTEZ PATIENT PORTAL CONCIERGE CM to room to meet with patient for initial transition planning/care coordination assessment. CHANO CORTEZ introduced self and role at [facility]. Pt voices understanding and consents to assessment at this time. Pt resting in bed in no distress at this time. Pt is A/O at this time and answers all questions appropriately. Care providers, pharmacy, and demographics verified/updated at this time. PCP: Dr Wallis Specialists: Dr Aguilar-nephrology. Pt does home peritoneal dialysis. Dr Hui-cardiology. [facility]walker in [place]--does not remember her name. Preferred Pharmacy: [facility] Retail Insurance: [facility] Prescription Benefit: yes Living Will/HPOA: Has done LW and HCPOA, who is her LNOK: , Marcos. Dtr, Silvia Living Arrangements: Lives w/ and dtr in one-story home w/2 steps to enter. Pt states she is independent w/ADL's and manages her own medications. She states she was able to do all home mgmt tasks up until about 1-2 months ago. Her family now assists. Transportation: Family DME: States has the following DME: cane for community distances. Has a walker available, but does not use. Has a CPAP but does not use d/t she could not sleep w/it on. Pt has a functioning glucometer w/supplies. She states she is getting low on the strips but plans to call PCP for refills. Pt states no need for further DME at this time. HHC/SNF: No hx SNF. Has had HHC in the past, but does not remember name of agency. CHANO CORTEZ discussed HHC w/pt, as therapy does recommend it. Pt states she does not want HHC at this time. She states she wishes to return home and see how she does. She was made aware, should she change her mind once returning home and would like HHC, to contact PCP to discuss. She voices understanding. Pt wishes to return home and states has no concerns with going home at time of discharge. CM to follow for any discharge planning/needs. Pt voices no further concerns/needs at this time. Advised pt to ask for CM if any further questions/concerns/needs arise. Voices understanding. PLAN: Home w/family support and discharge plans in place. Marshall NELSON RN, CM
[2022-02-03] MEDS: Insulin Lispro 100 UNIT/ML INSULN.PEN SC ×2 (16:52→23:23)
[2022-02-03] MEDS: Calcium Acetate 667 MG Capsule 2001 MG PO (17:27)
[2022-02-03] MEDS: Vancomycin 125 MG/5 ML Susp PO.SYRINGE PO (21:05)
[2022-02-03] MEDS: LORazepam 1 MG Tablet PO (23:45)
[2022-02-03 23:51] LABS: Bedside Glucose 250 mg/dL (74-106)
[2022-02-04] VITALS (10 sets, daily range): BP systolic 113–119; BP diastolic 36–51; PULSE 69–78; RESP 16; TEMP 36.6–37.2; O2SAT 96–98
[2022-02-04] MEDS: Vancomycin 125 MG/5 ML Susp PO.SYRINGE PO ×3 (00:10→12:12)
[2022-02-04 06:30] LABS: Bedside Glucose 178 mg/dL (74-106)
[2022-02-04] MEDS: Insulin Lispro 100 UNIT/ML INSULN.PEN SC ×2 (06:44→12:11)
[2022-02-04 07:15] LABS: Bedside Glucose 196 mg/dL (74-106)
[2022-02-04] MEDS: Calcium Acetate 667 MG Capsule 2001 MG PO (08:37)
--- NOTE | 2022-02-04 08:53 | DIALYSIS ---
CCPD completed and disconnected aseptically. catheter secured to abdomen. administering treatment. set up correct and per order. 1.5% dextrose bags used. UF 49 ml. Effluent drainage clear pale yellow, no mucous threads. Labs collected per order and sent to lab. will continue to set up and start PD treatments per order. System Controller available for assistance.
[2022-02-04 08:58] LABS: Appearance/Body Fluid CLEAR; Auto B Fluid Analyzer BKGD Ct COUNTS W/IN LIMITS (W/IN LIMITS); Color/Body Fluid COLORLESS; Source- Body Fluid PERITONEAL FLUID; White Blood Count/Body Fluid 0.004 10^3/uL
[2022-02-04] MEDS: Hydroxychloroquine 200 MG Tablet PO (08:59)
[2022-02-04] MEDS: Calcitriol 0.25 MCG Capsule PO (08:59)
[2022-02-04] MEDS: Cholestyramine/Sucrose 4 GM/PACKET PO (08:59)
[2022-02-04] MEDS: Carvedilol 25 MG Tablet PO (08:59)
[2022-02-04] MEDS: Heparin Injection (Vial) 5,000 UNIT/ML VIAL 5000 UNIT SC (08:59)
[2022-02-04] MEDS: Folic Acid/Vitamin B Comp W-C 1 Capsule 1 CAP PO (08:59)
[2022-02-04] MEDS: Insulin Glargine-YFGN 100 UNIT/ML Pen 15 UNIT SC (08:59)
[2022-02-04 09:00] LABS: Red Cell Count/Body Fluid 1 /mm3
[2022-02-04 10:50] LABS: Body Fluid QC Type(s) BF2Q
--- NOTE | 2022-02-04 11:39 | DCINST_ITS ---
Discharge Instructions Diet Discharge Diet: 1800 Calorie Control Diet Activity Discharge Activity: Return to Normal Activity Weight Bearing Status: Full weight bearing Follow Up Care Test Results: Test results from this visit will be discussed in further detail at your follow- up appointment, if applicable. Discharge Plan Admission Admit Date/Time: 02/02/22 17:00 Primary Reason for Your Visit: DKA Attending Provider: Ralph Gillespie Primary Care Provider: Hamzah Wallis Consulting Providers: Arabella Li ; Duy Phan ; Ivanna Aguilar Discharge Orders/Prescriptions Prescriptions: New vancomycin 125 mg capsule 125 mg PO Q6H 10 Days Qty: 40 0RF Continued (DME) blood sugar diagnostic Strip See Rx Instructions .ROUTE .MEDSUPPLY Qty: 10 Rx Instructions: check blood glucose twice daily for type 2 DM coenzyme Q10 50 mg tablet 50 mg PO DAILY doxazosin [Cardura] 4 mg tablet 4 mg PO DAILY Cholestyramine Light 4 gram powder 1 g PO BID Qty: 239.4 5RF Rx Instructions: administer w/meal; avoid other meds within 1hr before or 4-6hr after dose tramadol 50 mg tablet 50 mg PO DAILY hydroxychloroquine [Plaquenil] 200 mg tablet 200 mg PO BID Jeannette-C with Bioflavonoids 1 EACH tablet 1 each PO DAILY calcitriol [Rocaltrol] 0.25 mcg capsule 0.25 mcg PO DAILY Renal Caps 1 mg capsule 1 cap PO DAILY Label Comments: TAKE 1 CAPSULE BY MOUTHuDAILYc hydralazine 100 mg tablet 100 mg PO TID omeprazole 20 mg capsule,delayed release(DR/EC) 20 mg PO DAILY (DME) pen needle, diabetic [BD Ultra-Fine Orig Pen Needle] 29 gauge x 1/2 needle See Rx Instructions MISCELLANEOUS Rx Instructions: As directed (DME) disability placard See Rx Instructions .Route .MEDSUPPLY Qty: 1 0RF Rx Instructions: As directed, Length of time: 5 years (DME) OneTouch Ultra Test Strip See Rx Instructions .ROUTE .MEDSUPPLY Qty: 100 3RF Rx Instructions: use to check blood glucose twice daily as directed valsartan 160 mg tablet 160 mg PO DAILY Qty: 90 3RF isosorbide mononitrate 60 mg tablet extended release 24 hr 60 mg PO LUNCH Qty: 90 1RF carvedilol 25 mg tablet 25 mg PO BID Qty: 180 3RF Rx Instructions: TAKE 1 TABLET BY MOUTH TWICE A DAY Changed insulin glargine [Lantus Solostar U-100 Insulin] 100 unit/mL (3 mL) insulin pen 15 unit subcut BIDCM Qty: 1 0RF Discontinued amlodipine 10 mg tablet 10 mg PO DAILY Referrals / Follow Up: Ivanna Aguilar DO [Med Staff - Consulting] - See Referral Note (as directed) Hamzah Wallis MD [Primary Care Provider] - Within 1 Week (to recheck your blood pressure medicines) Disposition Disposition (needs filled in before D/C Order can be placed): Home, Self Care
--- NOTE | 2022-02-04 11:56 | PCM.DC.SUM ---
Providers Date of Admission: 02/02/22 Date of Discharge: 02/04/22 Primary Care Physician: Dr. Hamzah Wallis MD Consultations 02/02/22 18:51 Consult: Metallurgical Or Materials Technician / Pulmonary Medicine Routine Consulting Provider: Duy Phan Reason for Consult: DKA, Cdiff colitis, ? pancreatitis EMERGENT Consult: No Notified: Yes Date Notified: 02/02/22 Time Notified: 17:04 Method of Notification: Text Consult: Nephrology Routine Consulting Provider: Ivanna Aguilar Reason for Consult: ESRD on PD daily EMERGENT Consult: No Notified: Yes Date Notified: 02/03/22 Time Notified: 10:32 Method of Notification: Verbal Reason For Visit: DKA, CDIFF COLITIS, PANCREATITIS Diagnosis Discharge Diagnosis (1) C. difficile diarrhea: Status: Acute Code(s): A04.72 - Enterocolitis due to Clostridium difficile, not specified as recurrent (2) HLD (hyperlipidemia): Status: Chronic Code(s): E78.5 - Hyperlipidemia, unspecified Qualifiers: Qualified Code(s): E78.0 - Pure hypercholesterolemia (3) Type 2 diabetes mellitus: Status: Chronic Code(s): E11.9 - Type 2 diabetes mellitus without complications Qualifiers: Diabetes mellitus complication status: with other specified complication Diabetes mellitus penitentiary insulin use: with assistant terminal manager use Qualified Code(s): E11.69 - Type 2 diabetes mellitus with other specified complication; Z79.4 - terminal system operator (current) use of insulin (4) Anemia in chronic kidney disease (CKD): Status: Chronic Code(s): N18.9 - Chronic kidney disease, unspecified; D63.1 - Anemia in chronic kidney disease Qualifiers: Chronic kidney disease stage: stage 4 (severe) Qualified Code(s): N18.4 - Chronic kidney disease, stage 4 (severe); D63.1 - Anemia in chronic kidney disease (5) Hypotension: Status: Acute Code(s): I95.9 - Hypotension, unspecified (6) ESRD (end stage renal disease) on dialysis: Status: Acute Code(s): N18.6 - End stage renal disease; Z99.2 - Dependence on renal dialysis (7) DKA (diabetic ketoacidosis): Status: Acute Code(s): E11.10 - Type 2 diabetes mellitus with ketoacidosis without coma (8) Acute pancreatitis: Status: Acute Code(s): K85.90 - Acute pancreatitis without necrosis or infection, unspecified (9) Hypokalemia: Status: Acute Code(s): E87.6 - Hypokalemia (10) Hyperphosphatemia: Status: Acute Code(s): E83.39 - Other disorders of phosphorus metabolism Plan 1. DKA due to uncontrolled type 2 diabetes-patient will continue on insulin drip at this time, labs will be monitored, she is being seen by critical care #2 C. difficile colitis-patient is on oral vancomycin #3 end-stage renal disease-patient is on peritoneal dialysis #4 hypertension-patient remains on her present medications #5 hyperphosphatemia-this should correct with peritoneal dialysis #6 chronic diastolic congestive heart failure-patient will remain on her present medications #7 acute pancreatitis-etiology unclear #8 hypokalemia Medications at Discharge Home Medications ascorbate calcium-bioflavonoid 500 mg-200 mg tablet (Jeannette-C with Bioflavonoids) 1 each PO DAILY SUPPLEMENT 05/03/20 disability placard #1 ea 05/27/20 hydroxychloroquine 200 mg tablet (Plaquenil) 200 mg PO BID arthritis 07/06/20 calcitriol 0.25 mcg capsule (Rocaltrol) 0.25 mcg PO DAILY SUPPLEMENT 07/28/20 blood sugar diagnostic #10 ea 09/30/20 blood sugar diagnostic (OneTouch Ultra Test strips) #100 ea 10/17/20 valsartan 160 mg tablet 160 mg PO DAILY heart #90 tabs 03/28/21 isosorbide mononitrate 60 mg tablet,extended release 24 hr 60 mg PO LUNCH heart #90 tabs 03/31/21 coenzyme Q10 50 mg tablet 50 mg PO DAILY SUPPLEMENT 05/18/21 doxazosin 4 mg tablet (Cardura) 4 mg PO DAILY HEART 11/30/21 tramadol 50 mg tablet 50 mg PO DAILY MUSCLE RELAXANT 11/30/21 cholestyramine-aspartame 4 gram oral powder (Cholestyramine Light) 1 g PO BID diarrhea #239.4 grams 12/06/21 carvedilol 25 mg tablet 25 mg PO BID HEART #180 tabs 01/15/22 hydralazine 100 mg tablet 100 mg PO TID ANXIETY 02/02/22 omeprazole 20 mg capsule,delayed release 20 mg PO DAILY GERD 02/02/22 pen needle, diabetic 29 gauge x 1/2 (BD Ultra-Fine Original Pen Needle) 02/02/22 vitamin B complex and vitamin C no.20-folic acid 1 mg capsule (Renal Caps) 1 cap PO DAILY SUPPLEMENT 02/02/22 insulin glargine 100 unit/mL (3 mL) subcutaneous pen (Lantus Solostar U-100 Insulin) 15 unit (0.15 mL) subcut BIDCM DM #1 mL 02/04/22 vancomycin 125 mg capsule 125 mg PO Q6H 10 days #40 caps 02/04/22 Hospital Course Operations None Procedures None Summary of Care Provided Minutes Spent on Discharge: 32 Hospital Course: This 76-year-old white female presented to the emergency room at [facility] with nausea vomiting and diarrhea, this has been going on for approximately 2 weeks, patient however does have a history of chronic diarrhea. Patient had an outpatient stool study performed which came back positive for C. difficile organism but no toxin. Patient was instructed to go to the emergency room to be evaluated. Patient has chronic peritoneal dialysis which she does at home. Patient had lab work done in the ER, white blood cell count was 15.2, blood sugar was 601, lipase was elevated at 1246, creatinine was 16.4, BUN was 75, her anion gap was elevated at 20. Patient was felt to be in DKA, she was felt also to have pancreatitis, she was admitted to ICU and started on insulin drip, she was placed on oral vancomycin for possible C. difficile infection, patient's diarrhea slowed during her hospitalization. Patient was moved out to PCU and appeared stable. Patient's abdominal and pelvic CT showed a normal pancreas. She was seen in consultation by nephrology. On 02/04/2022, patient was seen and examined: On examination she appeared in good health and spirits, she does not appear to be in any distress. Vital signs as documented. Skin warm and dry and without overt rashes. Neck without JVD, thyroid appears normal, trachea is midline, neck is supple. Lungs clear, normal air movement was noted. Heart exam notable for regular rhythm, normal sounds and absence of murmurs, rubs or gallops. Abdomen unremarkable and without evidence of organomegaly, masses, or abdominal aortic enlargement, bowel sounds are present in all 4 quadrants, no abdominal tenderness was noted. Extremities nonedematous, no cyanosis was noted, no clubbing was noted. Neuro: Cranial nerves II through XII are grossly intact, no focal motor deficits were noted, sensation to light touch and pinprick is intact, motor exam 5/5 throughout. Psych: Patient is alert and oriented x3, she does not appear anxious or depressed, she does not appear agitated. Patient appeared stable for discharge home on 02/04/2022 Weight / BMI Weight Weight: 73.5 kg Body Mass Index (BMI) 25.8 ABG / Lab / Microbiology Data Result Diagrams: 02/03/22 02:45 02/03/22 11:07 Laboratory: Laboratory Results - last 24 hr 02/03/22 10:00: POC Glucose 76 02/03/22 11:05: POC Glucose 98 02/03/22 12:39: POC Glucose 102 02/03/22 16:48: POC Glucose 178 H 02/03/22 22:54: POC Glucose 250 H 02/04/22 06:21: POC Glucose 196 H 02/04/22 08:32: Fluid Source PERITONEAL FLUID, Fluid Color COLORLESS, Fluid Appearance CLEAR, Fluid WBC 0.004, Fluid RBC 1, Fluid Tot Cell Count Not Reportable, Fluid Neutrophils 57, Fluid Lymphocytes 14, Fluid Monocytes 14, Fluid Other Cells 14, Fl Pathologist Comment May follow, Fluid Comment 2 SEE COMMENT Microbiology: Microbiology 02/04/22 08:32 Fluid - Peritoneal Gram Stain - Final D/C Instructions Discharge Diet: 1800 Calorie Control Diet Weight Bearing Status: Full weight bearing Meaningful Use Info Meaningful Use Diagnoses (Choose all that apply): None applicable Discharge Plan Admission Admit Date/Time: 02/02/22 17:00 Primary Reason for Your Visit: DKA Attending Provider: Ralph Gillespie Primary Care Provider: Hamzah Wallis Consulting Providers: Arabella Li ; Duy Phan ; Ivanna Aguilar Discharge Orders/Prescriptions Prescriptions: New vancomycin 125 mg capsule 125 mg PO Q6H 10 Days Qty: 40 0RF Continued (DME) blood sugar diagnostic Strip See Rx Instructions .ROUTE .MEDSUPPLY Qty: 10 Rx Instructions: check blood glucose twice daily for type 2 DM coenzyme Q10 50 mg tablet 50 mg PO DAILY doxazosin [Cardura] 4 mg tablet 4 mg PO DAILY Cholestyramine Light 4 gram powder 1 g PO BID Qty: 239.4 5RF Rx Instructions: administer w/meal; avoid other meds within 1hr before or 4-6hr after dose tramadol 50 mg tablet 50 mg PO DAILY hydroxychloroquine [Plaquenil] 200 mg tablet 200 mg PO BID Jeannette-C with Bioflavonoids 1 EACH tablet 1 each PO DAILY calcitriol [Rocaltrol] 0.25 mcg capsule 0.25 mcg PO DAILY Renal Caps 1 mg capsule 1 cap PO DAILY Label Comments: TAKE 1 CAPSULE BY MOUTHuDAILYc hydralazine 100 mg tablet 100 mg PO TID omeprazole 20 mg capsule,delayed release(DR/EC) 20 mg PO DAILY (DME) pen needle, diabetic [BD Ultra-Fine Orig Pen Needle] 29 gauge x 1/2 needle See Rx Instructions MISCELLANEOUS Rx Instructions: As directed (DME) disability placard See Rx Instructions .Route .MEDSUPPLY Qty: 1 0RF Rx Instructions: As directed, Length of time: 5 years (DME) OneTouch Ultra Test Strip See Rx Instructions .ROUTE .MEDSUPPLY Qty: 100 3RF Rx Instructions: use to check blood glucose twice daily as directed valsartan 160 mg tablet 160 mg PO DAILY Qty: 90 3RF isosorbide mononitrate 60 mg tablet extended release 24 hr 60 mg PO LUNCH Qty: 90 1RF carvedilol 25 mg tablet 25 mg PO BID Qty: 180 3RF Rx Instructions: TAKE 1 TABLET BY MOUTH TWICE A DAY Changed insulin glargine [Lantus Solostar U-100 Insulin] 100 unit/mL (3 mL) insulin pen 15 unit subcut BIDCM Qty: 1 0RF Discontinued amlodipine 10 mg tablet 10 mg PO DAILY Referrals / Follow Up: Ivanna Aguilar DO [Med Staff - Consulting] - See Referral Note (as directed) Hamzah Wallis MD [Primary Care Provider] - Within 1 Week (to recheck your blood pressure medicines) Disposition Disposition (needs filled in before D/C Order can be placed): Home, Self Care Charges/Coding Visit Charges Inpatient E&M: 45276 Disch Hosp
[2022-02-04 12:15] LABS: Lymphocytes 16 %; Monocytes 0 %; Neutrophil (Segs) 84 %
[2022-02-04 12:40] LABS: Bedside Glucose 274 mg/dL (74-106)
[2022-02-05 13:55] LABS: Pathologist Comment/Body Fluid Reviewed
[2022-02-05 14:18] LABS: Pathologist Review Reviewed
== END 2022-02-04 14:07 | disposition home or self-care (01) | DRG 637 ==
LOC: ED 14:34 → ICU 17:22 → PCU 02-03 17:54
PROVIDERS: Hospitalist; Internal Medicine Critical Care Medicine; Internal Medicine Nephrology; Admitting Provider Family Medicine; Emergency Provider Student in an Organized Health Care Education/Training Program; PCP Internal Medicine; Visit Provider Internal Medicine
DX: E11.10 Type 2 diabetes mellitus with ketoacidosis without coma (principal); N18.6 End stage renal disease; K85.90 Acute pancreatitis without necrosis or infection, unspecified; A04.71 Enterocolitis due to Clostridium difficile, recurrent; I13.2 Hypertensive heart and chronic kidney disease with heart failure and with stage 5 chronic kidney disease, or end stage renal disease; I50.32 Chronic diastolic (congestive) heart failure; D63.1 Anemia in chronic kidney disease; E83.39 Other disorders of phosphorus metabolism; I95.9 Hypotension, unspecified; E11.22 Type 2 diabetes mellitus with diabetic chronic kidney disease; Z79.4 Long term (current) use of insulin; E11.40 Type 2 diabetes mellitus with diabetic neuropathy, unspecified; Z99.2 Dependence on renal dialysis; E11.65 Type 2 diabetes mellitus with hyperglycemia; I70.0 Atherosclerosis of aorta; K21.9 Gastro-esophageal reflux disease without esophagitis; G47.33 Obstructive sleep apnea (adult) (pediatric); E87.6 Hypokalemia; E78.5 Hyperlipidemia, unspecified; Z79.82 Long term (current) use of aspirin; Z66 Do not resuscitate; Z51.5 Encounter for palliative care; Z82.3 Family history of stroke; Z86.73 Personal history of transient ischemic attack (TIA), and cerebral infarction without residual deficits
CPT/HCPCS: 74176; 80048; 80053; 80061; 82009; 82962; 83036; 83605; 83690; 83735; 84100; 85025; 87070; 87075; 87205; 87493; 87506; 89050; 90947; 97162; 97165; 97802; 99251; 99284; J7030; J7120; A4216; G0257; G0463; J2405; J7799

== ENCOUNTER 2022-02-13 18:34 | Emergency (ER) | payer MEDICARE, SELFPAY ==
[2022-02-13 18:36] VITALS: BP 126/49; PULSE 94; RESP 16; TEMP 36.6; O2SAT 100; BMI 26.6
--- NOTE | 2022-02-13 20:34 | EKG12_ITS ---
Test Reason : DYSRHYTHMIA Blood Pressure : / mmHG Vent. Rate : 086 BPM Atrial Rate : 086 BPM P-R Int : 124 ms QRS Dur : 120 ms QT Int : 402 ms P-R-T Axes : 047 -11 118 degrees QTc Int : 481 ms Normal sinus rhythm Left ventricular hypertrophy with QRS widening and repolarization abnormality Abnormal ECG Confirmed by CINDY BALTAZAR, BRYAN ([id number]), slot editor JAN URBAN ([id number]) on 02/14/2022 8:57:16 AM Referred By: JUSTINA Confirmed By:BRYAN WHITE MD
--- NOTE | 2022-02-13 20:38 | EX.ED.DYSGE1 ---
HPI History of Present Illness Chief Complaint: Hyperglycemia [facility] Medical History (HFpEF) heart failure with preserved ejection fraction Acute on chronic diastolic (congestive) heart failure Ambulates with cane Anemia Anemia of chronic disease Bilateral edema of lower extremity Blackout C. difficile diarrhea Cardiology follow-up encounter Cataracts, bilateral Chronic diarrhea Chronic diastolic (congestive) heart failure Chronic osteoarthritis Chronic renal failure, stage 4 (severe) Chronic renal failure, stage 5 CPAP (continuous positive airway pressure) dependence Diarrhea Dietary restriction Difficulty swallowing Diverticular disease Easy bruising ESRD (end stage renal disease) Essential (primary) hypertension Eye pressure Flatulence, eructation and gas pain Gastritis determined by endoscopy GERD (gastroesophageal reflux disease) GI bleed Health care maintenance High cholesterol History of CHF (congestive heart failure) History of diverticulosis History of echocardiogram History of edema History of pain when walking History of renal disease History of stress test HLD (hyperlipidemia) HTN (hypertension), malignant Hx of mini strokes Hyperkalemia Hyperparathyroidism Hypersomnolence Hypotension Intraocular pressure increase Left carotid bruit Leg cramps Malaise and fatigue Morbid obesity Neuropathy Non-smoker KHANG (obstructive sleep apnea) Problem with dialysis access Problem with dialysis access Pseudoaneurysm of arteriovenous dialysis fistula Psoriasis Renal artery atherosclerosis Rheumatoid arthritis Secondary pulmonary arterial hypertension Shortness of breath on exertion Syncope Systolic hypertension with cerebrovascular disease TIA (transient ischemic attack) Type 2 diabetes mellitus treated with insulin Uncontrolled hypertension Home Medications ascorbate calcium-bioflavonoid 500 mg-200 mg tablet (Jeannette-C with Bioflavonoids) 1 each PO DAILY SUPPLEMENT 05/03/20 [History Last Taken 02/01/22] disability placard #1 ea 05/27/20 [Rx Last Taken Unknown] hydroxychloroquine 200 mg tablet (Plaquenil) 200 mg PO BID arthritis 07/06/20 [History Last Taken 01/31/22] calcitriol 0.25 mcg capsule (Rocaltrol) 0.25 mcg PO DAILY SUPPLEMENT 07/28/20 [History Last Taken 02/01/22] blood sugar diagnostic #10 ea 09/30/20 [History Last Taken Unknown] blood sugar diagnostic ([employer] Ultra Test strips) #100 ea 10/17/20 [Rx Last Taken Unknown] valsartan 160 mg tablet 160 mg PO DAILY heart #90 tabs 03/28/21 [Rx Last Taken 02/02/22] isosorbide mononitrate 60 mg tablet,extended release 24 hr 60 mg PO LUNCH heart #90 tabs 03/31/21 [Rx Last Taken 02/01/22] coenzyme Q10 50 mg tablet 50 mg PO DAILY SUPPLEMENT 05/18/21 [History Last Taken 01/31/22] doxazosin 4 mg tablet (Cardura) 4 mg PO DAILY HEART 11/30/21 [History Last Taken 02/01/22] tramadol 50 mg tablet 50 mg PO DAILY MUSCLE RELAXANT 11/30/21 [History Last Taken 02/01/22] cholestyramine-aspartame 4 gram oral powder (Cholestyramine Light) 1 g PO BID diarrhea #239.4 grams 12/06/21 [Rx Last Taken Unknown] hydralazine 100 mg tablet 100 mg PO TID ANXIETY 02/02/22 [History Last Taken 02/02/22] omeprazole 20 mg capsule,delayed release 20 mg PO DAILY GERD 02/02/22 [History Last Taken 02/02/22] pen needle, diabetic 29 gauge x 1/2 (BD Ultra-Fine Original Pen Needle) 02/02/22 [History Last Taken Unknown] vitamin B complex and vitamin C no.20-folic acid 1 mg capsule (Renal Caps) 1 cap PO DAILY SUPPLEMENT 02/02/22 [History Last Taken 02/01/22] insulin glargine 100 unit/mL (3 mL) subcutaneous pen (Lantus Solostar U-100 Insulin) 15 unit (0.15 mL) subcut BIDCM DM #1 mL 02/04/22 [Rx Last Taken Unknown] vancomycin 125 mg capsule 125 mg PO Q6H 10 days #40 caps 02/04/22 [Rx Last Taken Unknown] carvedilol 25 mg tablet 12.5 mg PO BID HEART 02/13/22 [History Last Taken Unknown] Allergy/AdvReac Type Severity Reaction Status Date / Time calcium Allergy Unknown constipatio Verified 02/13/22 18:35 n amiloride Allergy NEEDS Verified 02/13/22 18:35 FOLLOW-UP azithromycin Allergy NEEDS Verified 02/13/22 18:35 [From Zithromax Z-Rickey] FOLLOW-UP bumetanide Allergy Unknown Verified 02/13/22 18:35 chlorthalidone Allergy Unknown Verified 02/13/22 18:35 clonidine HCl [From Catapres] Allergy Rash Verified 02/13/22 18:35 diltiazem Allergy Unknown Verified 02/13/22 18:35 gemfibrozil Allergy Unknown Verified 02/13/22 18:35 lisinopril Allergy NEEDS Verified 02/13/22 18:35 FOLLOW-UP losartan [Losartan] Allergy Unknown Verified 02/13/22 18:35 minoxidil Allergy Unknown Verified 02/13/22 18:35 nifedipine Allergy Unknown Verified 02/13/22 18:35 simvastatin [From Zocor] Allergy Unknown Verified 02/13/22 18:35 triamterene [From Dyazide] Allergy Unknown Verified 02/13/22 18:35 valdecoxib [From Bextra] Allergy Unknown Verified 02/13/22 18:35 verapamil [Verapamil] Allergy Unknown Verified 02/13/22 18:35 atorvastatin AdvReac Unknown Swelling Verified 02/13/22 18:35 esomeprazole [From Nexium] AdvReac Unknown Swelling Verified 02/13/22 18:35 atorvastatin calcium AdvReac Leg Verified 02/13/22 18:35 [From Lipitor] cramps/aching celecoxib [From Celebrex] AdvReac Leg aching Verified 02/13/22 18:35 hydrochlorothiazide AdvReac Legs aching Verified 02/13/22 18:35 indapamide AdvReac Other Verified 02/13/22 18:35 insulin detemir AdvReac Unknown Verified 02/13/22 18:35 [From Levemir] lansoprazole [From Prevacid] AdvReac Legs aching Verified 02/13/22 18:35 metformin HCl AdvReac Diarrhea Verified 02/13/22 18:35 [From Glucophage] pravastatin AdvReac Legs aching Verified 02/13/22 18:35 rosuvastatin calcium AdvReac Legs aching Verified 02/13/22 18:35 [From Crestor] Family History Mother Diabetes Heart disease CVA (cerebral vascular accident) Myocardial infarction had AR in 70s Father Cancer lung, passed at 70 Brother Kidney disease of renal failure at 65. Sister Diabetes Hypertension Mother Diabetes Heart disease CVA (cerebral vascular accident) Myocardial infarction age 70s Father Cancer lung CA Sister Hypertension Diabetes Surgical History gallbladder removed History of appendectomy History of arteriovenostomy for renal dialysis (~05/2020) History of arteriovenous graft History of colonoscopy S/P breast lumpectomy surgery on finger due to infection Social History household members: spouse housing: house pets and animals: Yes pets and animals: dog(s) Smoking Status: Never smoker alcohol intake: never substance use type: does not use caffeine: Yes Type: tea Number of servings: 4 what type of physical activity do you participate in: none seatbelt use: always do you feel safe at home: Yes EXAM Physical Exam Const Vital Signs: 02/13/22 18:36 02/13/22 21:01 02/13/22 23:38 Temperature 97.9 F Temperature Source Temporal Pulse Rate 94 78 83 Respiratory Rate 16 16 18 Blood Pressure 126/49 H 136/78 H 156/60 H Blood Pressure Mean 74 97 Pulse Ox 100 98 97 Oxygen Delivery Method Room Air Room Air MDM MDM MDM Narrative Medical decision making narrative: Patient has remained hemodynamically stable in the department. Hemoglobin 9.4 which is chronic for her. Creatinine 16.60 which is also chronic for her as she is a peritoneal dialysis patient. Her initial blood sugar 371. This is come down with some IV fluids. My interpretation of the chest x-ray is no acute process. Patient is feeling well. She is hemodynamically stable. We talked about observational stay but both agree that home care would be appropriate. Patient to return if worsening or concerns Lab Data Attestation: I reviewed the patient's lab results. Labs: Laboratory Results - last 24 hr 02/13/22 02/13/22 02/13/22 20:50 20:50 20:55 WBC 10.5 RBC 2.94 L Hgb 9.4 L Hct 29.0 L MCV 98.6 MCH 32.0 MCHC 32.4 RDW Std Deviation 52.2 H RDW Coeff of Pepe 15.3 H Plt Count 218 MPV 10.8 Immature Gran % (Auto) 0.600 Neut % (Auto) 70.8 H Lymph % (Auto) 13.7 L [place] % (Auto) 10.3 H Eos % (Auto) 4.2 Baso % (Auto) 0.4 Absolute Neuts (auto) 7.4 Absolute Lymphs (auto) 1.43 Nucleated RBC % 0.2 Sodium 137 Potassium 4.2 Chloride 98 Carbon Dioxide 22.0 Anion Gap 17 H BUN 56 H Creatinine 16.60 H* Estim Creat Clear Calc 2.63 Est GFR (MDRD) Af Amer 3 L Est GFR (MDRD) Non-Af 2 L BUN/Creatinine Ratio 3.4 L Glucose 371 H Calcium 9.9 Total Bilirubin 0.40 AST 19 ALT 23 Alkaline Phosphatase 96 Total Protein 6.6 Albumin 3.1 L Globulin 3.5 Albumin/Globulin Ratio 0.9 POC Glucose 317 H 02/13/22 02/13/22 22:22 23:11 WBC RBC Hgb Hct MCV MCH MCHC RDW Std Deviation RDW Coeff of Pepe Plt Count MPV Immature Gran % (Auto) Neut % (Auto) Lymph % (Auto) [place] % (Auto) Eos % (Auto) Baso % (Auto) Absolute Neuts (auto) Absolute Lymphs (auto) Nucleated RBC % Sodium Potassium Chloride Carbon Dioxide Anion Gap BUN Creatinine Estim Creat Clear Calc Est GFR (MDRD) Af Amer Est GFR (MDRD) Non-Af BUN/Creatinine Ratio Glucose Calcium Total Bilirubin AST ALT Alkaline Phosphatase Total Protein Albumin Globulin Albumin/Globulin Ratio POC Glucose 261 H 242 H Radiography Diagnostic Testing: Clinical Impression(s) from Imaging Studies Chest X-Ray 02/13/22 21:10 IMPRESSION: No acute radiographic abnormalities. Electronically Signed: Indra Jason MD at 21:44 EST Reading Location ID and State: [facility] / [place] Tel , Service support , EKG Initial EKG: Attestation: I personally reviewed and interpreted this EKG as follows: Comments: Normal sinus rhythm ventricular rate of 86 bpm Discharge Plan Triage Chief Complaint: Hyperglycemia ED Provider: Richi Munoz Dx/Rx/DC Orders Clinical Impression: Type 2 diabetes mellitus, ESRD (end stage renal disease) Instructions: ED Diabetic Hyperglycemia Prescriptions: No Action (DME) blood sugar diagnostic Strip See Rx Instructions .ROUTE .MEDSUPPLY Qty: 10 Rx Instructions: check blood glucose twice daily for type 2 DM coenzyme Q10 50 mg tablet 50 mg PO DAILY doxazosin [Cardura] 4 mg tablet 4 mg PO DAILY Cholestyramine Light 4 gram powder 1 g PO BID Qty: 239.4 5RF Rx Instructions: administer w/meal; avoid other meds within 1hr before or 4-6hr after dose carvedilol 25 mg tablet 12.5 mg PO BID Rx Instructions: TAKE 1 TABLET BY MOUTH TWICE A DAY tramadol 50 mg tablet 50 mg PO DAILY hydroxychloroquine [Plaquenil] 200 mg tablet 200 mg PO BID Jeannette-C with Bioflavonoids 1 EACH tablet 1 each PO DAILY calcitriol [Rocaltrol] 0.25 mcg capsule 0.25 mcg PO DAILY Renal Caps 1 mg capsule 1 cap PO DAILY Label Comments: TAKE 1 CAPSULE BY MOUTHuDAILYc hydralazine 100 mg tablet 100 mg PO TID omeprazole 20 mg capsule,delayed release(DR/EC) 20 mg PO DAILY (DME) pen needle, diabetic [BD Ultra-Fine Orig Pen Needle] 29 gauge x 1/2 needle See Rx Instructions MISCELLANEOUS Rx Instructions: As directed vancomycin 125 mg capsule 125 mg PO Q6H 10 Days Qty: 40 0RF insulin glargine [Lantus Solostar U-100 Insulin] 100 unit/mL (3 mL) insulin pen 15 unit subcut BIDCM Qty: 1 0RF (DME) disability placard See Rx Instructions .Route .MEDSUPPLY Qty: 1 0RF Rx Instructions: As directed, Length of time: 5 years (DME) OneTouch Ultra Test Strip See Rx Instructions .ROUTE .MEDSUPPLY Qty: 100 3RF Rx Instructions: use to check blood glucose twice daily as directed valsartan 160 mg tablet 160 mg PO DAILY Qty: 90 3RF isosorbide mononitrate 60 mg tablet extended release 24 hr 60 mg PO LUNCH Qty: 90 1RF Primary Care Provider: Hamzah Wallis Referrals: Hamzah Wallis MD [Primary Care Provider] - As Needed Disposition Disposition: Home, Self Care Discharge Date/Time: 02/13/22 23:41
--- NOTE | 2022-02-13 20:45 | ED.RN ---
pt sugar 318 dr. yee aware. states hold off on insulin for the time being until we see what her sugar is going to do.
[2022-02-13 21:01] VITALS: BP 136/78; PULSE 78; RESP 16; O2SAT 98
[2022-02-13] MEDS: 0.9% Normal Saline 1,000 ML 1000 ML IV (21:01)
[2022-02-13 21:07] LABS: Absolute Lymphocyte Count 1.43 X10^3/uL (0.83-4.51); Absolute Neutrophil Count 7.4 X10^3/uL (2.0-7.7); Basophil# 0.04 X10^3/uL; Basophil% 0.4 % (0-1); Eosinophil# 0.44 X10^3/uL; Eosinophils% 4.2 % (0-5); Hemoglobin 9.4 g/dL (12.0-15.0); Lymphocyte # 1.43 X10^3/ul (0.83-4.51); Lymphocyte % 13.7 % (19-41); Mean Corp Hgb Conc 32.4 g/dL (32-36); Mean Corpuscular Volume 98.6 fL (81-99); Mean Platelet Vol. 10.8 fl (6.2-12.0); Monocyte# 1.08 X10^3/uL; Monocyte% 10.3 % (0-10); NRBC Flagged by Analyzer 0.2 % (0-5); Neutrophil # 7.42 X10^3/uL (2.7-7.7); Neutrophil % 70.8 % (47-70); Platelet Count 218 K/mm3 (150-450); RBC Distribution Width CV 15.3 % (11.6-14.6); RBC Distribution Width SD 52.2 fl (35.1-43.9); Red Blood Count 2.94 M/mm3 (4.2-5.4); White Blood Count 10.5 K/mm3 (4.4-11.0)
--- NOTE | 2022-02-13 21:10 | RAD_ITS ---
INDICATION: dyspnea EXAMINATION/TECHNIQUE: X-RAY - XR Chest 1 View COMPARISON: 03/09/2021. FINDINGS: The lungs are clear. Tortuous and calcified thoracic aorta. The heart is not enlarged. No pleural effusion or pneumothorax. Degenerative changes of the thoracic spine and shoulders. RAD/Chest 1 View (Portable) IMPRESSION: No acute radiographic abnormalities. Electronically Signed: Indra Jason MD at 21:44 EST ,
[2022-02-13 21:16] LABS: Bedside Glucose 317 mg/dL (74-106)
[2022-02-13 21:42] LABS: ALB/GLOB Ratio 0.9 RATIO (0.9-2.4); AST(SGOT) 19 U/L (15-37); Alanine Aminotransfer ALT/SGPT 23 U/L (13-56); Albumin, Serum 3.1 g/dL (3.2-5.0); Alkaline Phosphatase 96 U/L (45-117); Anion Gap 17 (5-15); BUN 56 mg/dL (7-18); BUN/Creat Ratio 3.4 RATIO (10-20); Calcium,Total 9.9 mg/dL (8.5-10.1); Chloride 98 mmol/L (98-107); EST Glomerular Filtration Rate 2 mL/min (>60); Est Glom Filt Rate - Afr Amer 3 mL/min (>60); Estimated Creatinine Clearance 2.63 ml/min; Globulin 3.5 g/dL (2.2-4.2); Glucose 371 mg/dL (74-106); Potassium 4.2 mmol/L (3.5-5.1); Protein, Total 6.6 g/dL (6.4-8.2); Sodium Level 137 mmol/L (136-145)
[2022-02-13 22:40] LABS: Bedside Glucose 261 mg/dL (74-106)
[2022-02-13 23:30] LABS: Bedside Glucose 242 mg/dL (74-106)
[2022-02-13 23:38] VITALS: BP 156/60; PULSE 83; RESP 18; O2SAT 97
== END 2022-02-13 23:41 | disposition home or self-care (01) ==
PROVIDERS: Emergency Provider Emergency Medicine; PCP Internal Medicine; Visit Provider Emergency Medicine
DX: E11.65 Type 2 diabetes mellitus with hyperglycemia (principal); I13.2 Hypertensive heart and chronic kidney disease with heart failure and with stage 5 chronic kidney disease, or end stage renal disease; Z99.2 Dependence on renal dialysis; I50.32 Chronic diastolic (congestive) heart failure; E11.40 Type 2 diabetes mellitus with diabetic neuropathy, unspecified; E11.22 Type 2 diabetes mellitus with diabetic chronic kidney disease; N18.6 End stage renal disease; E78.5 Hyperlipidemia, unspecified
CPT/HCPCS: 36415; 71045; 80053; 82962; 83690; 84100; 84550; 85025; 93005; 96360; 99284; J7030

== ENCOUNTER → 2022-02-13 | Outpatient (CLI) | payer MEDICARE, SELFPAY ==
[2022-02-13 16:49] LABS: Absolute Lymphocyte Count 1.29 X10^3/uL (0.83-4.51); Absolute Neutrophil Count 7.4 X10^3/uL (2.0-7.7); Basophil# 0.04 X10^3/uL; Basophil% 0.4 % (0-1); Eosinophil# 0.41 X10^3/uL; Hematocrit 30.2 % (37-47); Hemoglobin 9.7 g/dL (12.0-15.0); Lymphocyte # 1.29 X10^3/ul (0.83-4.51); Lymphocyte % 12.7 % (19-41); Mean Corp Hgb Conc 32.1 g/dL (32-36); Mean Corpuscular Volume 99.7 fL (81-99); Monocyte# 0.95 X10^3/uL; Monocyte% 9.4 % (0-10); NRBC Flagged by Analyzer 0.4 % (0-5); Neutrophil # 7.43 X10^3/uL (2.7-7.7); Neutrophil % 73.1 % (47-70); Platelet Count 229 K/mm3 (150-450); RBC Distribution Width CV 15.3 % (11.6-14.6); RBC Distribution Width SD 52.2 fl (35.1-43.9); Red Blood Count 3.03 M/mm3 (4.2-5.4); White Blood Count 10.2 K/mm3 (4.4-11.0)
[2022-02-13 17:57] LABS: ALB/GLOB Ratio 1.1 RATIO (0.9-2.4); AST(SGOT) 12 U/L (15-37); Alanine Aminotransfer ALT/SGPT 20 U/L (13-56); Albumin, Serum 3.2 g/dL (3.2-5.0); Alkaline Phosphatase 100 U/L (45-117); Anion Gap 17 (5-15); BUN 53 mg/dL (7-18); BUN/Creat Ratio 3.3 RATIO (10-20); Calcium,Total 9.7 mg/dL (8.5-10.1); Chloride 97 mmol/L (98-107); EST Glomerular Filtration Rate 2 mL/min (>60); Est Glom Filt Rate - Afr Amer 3 mL/min (>60); Globulin 2.9 g/dL (2.2-4.2); Glucose 535 mg/dL (74-106); Lipase 277 U/L (73-393); Phosphorus 8.4 mg/dL (2.5-4.9); Potassium 4.2 mmol/L (3.5-5.1); Protein, Total 6.1 g/dL (6.4-8.2); Sodium Level 138 mmol/L (136-145); Uric Acid 9.7 mg/dL (2.6-6.0)
== END | disposition home or self-care (01) ==
LOC: BIMLAB 15:18
PROVIDERS: Internal Medicine Rheumatology; PCP Internal Medicine; Referring Provider Physician Assistant; Visit Provider Physician Assistant
DX: L40.59 Other psoriatic arthropathy (principal); Z79.899 Other long term (current) drug therapy; M79.7 Fibromyalgia; M17.0 Bilateral primary osteoarthritis of knee; L40.8 Other psoriasis
CPT/HCPCS: 36415; 80053; 83690; 84100; 84550; 85025

== ENCOUNTER → 2022-03-07 | Outpatient (CLI) | payer MEDICARE, SELFPAY | END | disposition home or self-care (01) | PROVIDERS: PCP Internal Medicine; Referring Provider Physician Assistant; Visit Provider Physician Assistant | DX: K58.9 Irritable bowel syndrome, unspecified (principal); A04.72 Enterocolitis due to Clostridium difficile, not specified as recurrent | CPT/HCPCS: 87493 ==

== ENCOUNTER 2022-03-08 14:43 | Inpatient (IN) | payer MEDICARE, SELFPAY ==
[2022-03-08] VITALS (8 sets, daily range): BP systolic 120–130; BP diastolic 51–86; PULSE 67–96; RESP 14–72; TEMP 35.5–37; O2SAT 97–100; BMI 26.2; BMI 25.6
--- NOTE | 2022-03-08 15:25 | EDS_ITS ---
HPI History of Present Illness Chief Complaint: Abd Pain Informant: patient and family Narrative Narrative: Patient presents with nausea vomiting diarrhea and now generalized weakness. She has been having the above symptoms for about 5 days. She states this is s imilar to about a month ago. However, month ago she had dark stools and now they are not dark. She has not seen black. She mostly has dry heaves and vomits some phlegm but today cannot keep liquids down. She has some abdominal cramping but not really much pain at all. She was not able to tell me that she actually had C. difficile colitis a month ago. She does note that they did blood work or stool studies yesterday and they told her to come in today because they were positive. When I mention C. difficile colitis her and her family member agreed that they think that is what they were told. I did review her prior discharge chart from admission in the beginning of February. She did have pancreatitis and C. difficile colitis and was discharged on 10 days of oral vancomycin. Nothing really makes her symptoms better or worse but they are progressively worsening. The reason for coming in today is referral and generalized weakness. Past medical history includes end-stage renal disease. She is on peritoneal dialysis at home. However, there is a fistula on her right arm on exam that seems functional. I reviewed her past medical history, surgeries, medications and family history on the chart. [facility] Medical History (HFpEF) heart failure with preserved ejection fraction Acute on chronic diastolic (congestive) heart failure Ambulates with cane Anemia Anemia of chronic disease Bilateral edema of lower extremity Blackout C. difficile diarrhea Cardiology follow-up encounter Cataracts, bilateral Chronic diarrhea Chronic diastolic (congestive) heart failure Chronic osteoarthritis Chronic renal failure, stage 4 (severe) Chronic renal failure, stage 5 CPAP (continuous positive airway pressure) dependence Diarrhea Dietary restriction Difficulty swallowing Diverticular disease Easy bruising ESRD (end stage renal disease) Essential (primary) hypertension Eye pressure Flatulence, eructation and gas pain Gastritis determined by endoscopy GERD (gastroesophageal reflux disease) GI bleed Health care maintenance High cholesterol History of CHF (congestive heart failure) History of diverticulosis History of echocardiogram History of edema History of pain when walking History of renal disease History of stress test HLD (hyperlipidemia) HTN (hypertension), malignant Hx of mini strokes Hyperkalemia Hyperparathyroidism Hypersomnolence Hypotension Intraocular pressure increase Left carotid bruit Leg cramps Malaise and fatigue Morbid obesity Neuropathy Non-smoker KHANG (obstructive sleep apnea) Problem with dialysis access Problem with dialysis access Pseudoaneurysm of arteriovenous dialysis fistula Psoriasis Renal artery atherosclerosis Rheumatoid arthritis Secondary pulmonary arterial hypertension Shortness of breath on exertion Syncope Systolic hypertension with cerebrovascular disease TIA (transient ischemic attack) Type 2 diabetes mellitus treated with insulin Uncontrolled hypertension Home Medications ascorbate calcium-bioflavonoid 500 mg-200 mg tablet (Jeannette-C with Bioflavonoids) 1 each PO DAILY SUPPLEMENT 05/03/20 [History Last Taken 03/03/22] disability placard #1 ea 05/27/20 [Rx Last Taken Unknown] hydroxychloroquine 200 mg tablet (Plaquenil) 200 mg PO BID arthritis 07/06/20 [History Last Taken 03/03/22] calcitriol 0.25 mcg capsule (Rocaltrol) 0.25 mcg PO DAILY SUPPLEMENT 07/28/20 [History Last Taken 03/05/22] blood sugar diagnostic #10 ea 09/30/20 [History Last Taken Unknown] blood sugar diagnostic (LessThan3uch Ultra Test strips) #100 ea 10/17/20 [Rx Last Taken Unknown] valsartan 160 mg tablet 160 mg PO DAILY heart #90 tabs 03/28/21 [Rx Last Taken 03/05/22] isosorbide mononitrate 60 mg tablet,extended release 24 hr 60 mg PO LUNCH heart #90 tabs 03/31/21 [Rx Last Taken 03/03/22] coenzyme Q10 50 mg tablet 50 mg PO DAILY SUPPLEMENT 05/18/21 [History Last Taken 03/06/22] tramadol 50 mg tablet 50 mg PO DAILY MUSCLE RELAXANT 11/30/21 [History Last Taken 03/06/22] hydralazine 100 mg tablet 100 mg PO TID HTN 02/02/22 [History Last Taken 03/07/22] omeprazole 20 mg capsule,delayed release 20 mg PO DAILY GERD 02/02/22 [History Last Taken 03/07/22] pen needle, diabetic 29 gauge x 1/2 (BD Ultra-Fine Original Pen Needle) 02/02/22 [History Last Taken Unknown] vitamin B complex and vitamin C no.20-folic acid 1 mg capsule (Renal Caps) 1 cap PO DAILY SUPPLEMENT 02/02/22 [History Last Taken 03/07/22] vancomycin 125 mg capsule 125 mg PO Q6H 10 days #40 caps 02/04/22 [Rx Last Taken 03/03/22] carvedilol 25 mg tablet 12.5 mg PO BID HEART 02/13/22 [History Last Taken 03/06/22] doxazosin 4 mg tablet (Cardura) 2 mg PO DAILY HEART 02/15/22 [History Last Taken 03/06/22] insulin glargine 100 unit/mL (3 mL) subcutaneous pen (Lantus Solostar U-100 Insulin) 22 unit subcut BIDCM DM 02/28/22 [History Last Taken 03/06/22] Allergy/AdvReac Type Severity Reaction Status Date / Time calcium Allergy Unknown constipatio Verified 03/08/22 14:56 n amiloride Allergy NEEDS Verified 03/08/22 14:56 FOLLOW-UP azithromycin Allergy NEEDS Verified 03/08/22 14:56 [From Zithromax Z-Rickey] FOLLOW-UP bumetanide Allergy Unknown Verified 03/08/22 14:56 chlorthalidone Allergy Unknown Verified 03/08/22 14:56 clonidine HCl [From Catapres] Allergy Rash Verified 03/08/22 14:56 diltiazem Allergy Unknown Verified 03/08/22 14:56 gemfibrozil Allergy Unknown Verified 03/08/22 14:56 lisinopril Allergy NEEDS Verified 03/08/22 14:56 FOLLOW-UP losartan [Losartan] Allergy Unknown Verified 03/08/22 14:56 minoxidil Allergy Unknown Verified 03/08/22 14:56 nifedipine Allergy Unknown Verified 03/08/22 14:56 simvastatin [From Zocor] Allergy Unknown Verified 03/08/22 14:56 triamterene [From Dyazide] Allergy Unknown Verified 03/08/22 14:56 valdecoxib [From Bextra] Allergy Unknown Verified 03/08/22 14:56 verapamil [Verapamil] Allergy Unknown Verified 03/08/22 14:56 atorvastatin AdvReac Unknown Swelling Verified 03/08/22 14:56 esomeprazole [From Nexium] AdvReac Unknown Swelling Verified 03/08/22 14:56 atorvastatin calcium AdvReac Leg Verified 03/08/22 14:56 [From Lipitor] cramps/aching celecoxib [From Celebrex] AdvReac Leg aching Verified 03/08/22 14:56 hydrochlorothiazide AdvReac Legs aching Verified 03/08/22 14:56 indapamide AdvReac Other Verified 03/08/22 14:56 insulin detemir AdvReac Unknown Verified 03/08/22 14:56 [From Levemir] lansoprazole [From Prevacid] AdvReac Legs aching Verified 03/08/22 14:56 metformin HCl AdvReac Diarrhea Verified 03/08/22 14:56 [From Glucophage] pravastatin AdvReac Legs aching Verified 03/08/22 14:56 rosuvastatin calcium AdvReac Legs aching Verified 03/08/22 14:56 [From Crestor] Family History Mother Diabetes Heart disease CVA (cerebral vascular accident) Myocardial infarction had [facility] in 70s Father Cancer lung, passed at 70 Brother Kidney disease of renal failure at 65. Sister Diabetes Hypertension Mother Diabetes Heart disease CVA (cerebral vascular accident) Myocardial infarction age 70s Father Cancer lung CA Sister Hypertension Diabetes Surgical History gallbladder removed History of appendectomy History of arteriovenostomy for renal dialysis (~05/2020) History of arteriovenous graft History of colonoscopy S/P breast lumpectomy surgery on finger due to infection Social History household members: spouse housing: house pets and animals: Yes pets and animals: dog(s) Smoking Status: Never smoker alcohol intake: never substance use type: does not use caffeine: Yes Type: tea Number of servings: 4 what type of physical activity do you participate in: none seatbelt use: always do you feel safe at home: Yes EXAM Physical Exam Narrative Exam Narrative: Patient awake alert and appropriate. She does look a little bit tired but not acutely ill or toxic. Mucous membranes do appear to be slightly dry. No sign of facial or head trauma. No notable JVD. Her lungs do sound clear. Her heart is regular. She has a rate of about 70 on the monitor. There is occasional ectopy. Abdomen is soft and nontender. She does have a Tenckhoff catheter in place. Per her , this has been infusing and draining normally without any difficulties or cloudiness. No CVA tenderness. Extremities show no rashes or trauma. She does have a palpable dialysis fistula in her right upper extremity with a good thrill. Const Vital Signs: 03/08/22 14:45 03/08/22 14:54 Temperature 96 F L Temperature Source Temporal Pulse Rate 67 Respiratory Rate 14 Blood Pressure 120/56 L Blood Pressure Mean 77 Pulse Ox 98 99 Oxygen Delivery Method Room Air Room Air MDM MDM MDM Narrative Medical decision making narrative: CT scan by my independent interpretation does show some mild bili and large bowel loops but no significant distention. No sign of obstruction. There is fluid in the abdomen but she has a Tenckhoff catheter and has fluid infusions regularly. No sign of free air. Official reading from radiology shows some gas-filled loops but no obstruction. No acute process. Patient's white count was normal. Hemoglobin was 12.1. Platelets normal. Electrolytes show minimally low potassium but she is on dialysis and this is not going to be replaced orally here. Creatinine is elevated consistent with her peritoneal and chronic dialysis. Liver function test are not showing any marked abnormalities. Glucose was a bit high at 209. With her overall generalized weakness age, debility, complex medical history she will be brought into the hospital for further treatment. She does have outpatient positive C. difficile screens. Hospitalist was contacted. Lab Data Attestation: I reviewed the patient's lab results. Labs: Laboratory Results - last 24 hr 03/08/22 03/08/22 15:08 15:08 WBC 9.9 RBC 3.64 L Hgb 12.1 Hct 35.8 L MCV 98.4 MCH 33.2 H MCHC 33.8 RDW Std Deviation 59.9 H RDW Coeff of Pepe 16.7 H Plt Count 182 MPV 12.1 H Immature Gran % (Auto) 0.300 Neut % (Auto) 68.6 Lymph % (Auto) 16.1 L Berrien % (Auto) 12.9 H Eos % (Auto) 1.7 Baso % (Auto) 0.4 Absolute Neuts (auto) 6.8 Absolute Lymphs (auto) 1.59 Nucleated RBC % 0 Sodium 139 Potassium 3.4 L Chloride 99 Carbon Dioxide 19.0 L Anion Gap 21 H BUN 53 H Creatinine 15.80 H* Estim Creat Clear Calc 2.66 Est GFR (MDRD) Af Amer 3 L Est GFR (MDRD) Non-Af 2 L BUN/Creatinine Ratio 3.4 L Glucose 209 H Calcium 10.4 H Total Bilirubin 0.60 AST 27 ALT 24 Alkaline Phosphatase 120 H Total Protein 6.9 Albumin 3.1 L Globulin 3.8 Albumin/Globulin Ratio 0.8 L Radiography Diagnostic Testing: Clinical Impression(s) from Imaging Studies Abdomen/Pelvis CT 03/08/22 17:27 IMPRESSION: 1. Borderline dilated gas-filled loops of small bowel in the upper abdomen which may represent enteritis. There is no obstruction. 2. Peritoneal dialysis catheter coiled in the pelvis. There is free fluid in the pelvis and upper abdomen possibly due to the patient''s dialysis. Electronically Signed: Spencer Morales MD at 19:56 EST , EKG Initial EKG: Comments: EKG done for generalized weakness. My independent interpretation of the EKG shows normal sinus rhythm with a rate of 94. No v entricular ectopy. She does have LVH with repull changes. No indication of ST elevation or depression. SD interval, QRS duration and QTC are overall normal. The EKG is similar to prior of 13 February 2022. Discharge Plan Dx/Rx/DC Orders Clinical Impression: C. difficile colitis, Generalized weakness, Chronic kidney disease Disposition Disposition: Acute Care [facility]
--- NOTE | 2022-03-08 15:25 | EKG12_ITS ---
Test Reason : GENERAL Blood Pressure : / mmHG Vent. Rate : 094 BPM Atrial Rate : 094 BPM P-R Int : 128 ms QRS Dur : 098 ms QT Int : 374 ms P-R-T Axes : 046 000 133 degrees QTc Int : 467 ms Normal sinus rhythm Left ventricular hypertrophy with repolarization abnormality ( R in aVL , Hundred product ) Abnormal ECG Confirmed by ZOFIA BALTAZAR, AZUL ([id number]), editor producer JAN URBAN ([id number]) on 03/12/2022 10:34:40 AM Referred By: Confirmed By:EDMOND ARMIJO MD
[2022-03-08] MEDS: Ondansetron 4 MG/2 ML Vial IV (16:05)
[2022-03-08 16:06] LABS: Absolute Lymphocyte Count 1.59 X10^3/uL (0.83-4.51); Absolute Neutrophil Count 6.8 X10^3/uL (2.0-7.7); Basophil# 0.04 X10^3/uL; Basophil% 0.4 % (0-1); Eosinophil# 0.17 X10^3/uL; Eosinophils% 1.7 % (0-5); Hematocrit 35.8 % (37-47); Hemoglobin 12.1 g/dL (12.0-15.0); Lymphocyte # 1.59 X10^3/ul (0.83-4.51); Lymphocyte % 16.1 % (19-41); Mean Corp Hgb Conc 33.8 g/dL (32-36); Mean Corpuscular Hgb 33.2 pg (27.0-32.0); Mean Corpuscular Volume 98.4 fL (81-99); Mean Platelet Vol. 12.1 fl (6.2-12.0); Monocyte# 1.28 X10^3/uL; Monocyte% 12.9 % (0-10); NRBC Flagged by Analyzer 0 % (0-5); Neutrophil # 6.78 X10^3/uL (2.7-7.7); Neutrophil % 68.6 % (47-70); Platelet Count 182 K/mm3 (150-450); RBC Distribution Width CV 16.7 % (11.6-14.6); RBC Distribution Width SD 59.9 fl (35.1-43.9); Red Blood Count 3.64 M/mm3 (4.2-5.4); White Blood Count 9.9 K/mm3 (4.4-11.0)
[2022-03-08 16:35] LABS: ALB/GLOB Ratio 0.8 RATIO (0.9-2.4); AST(SGOT) 27 U/L (15-37); Alanine Aminotransfer ALT/SGPT 24 U/L (13-56); Albumin, Serum 3.1 g/dL (3.2-5.0); Alkaline Phosphatase 120 U/L (45-117); Anion Gap 21 (5-15); BUN 53 mg/dL (7-18); BUN/Creat Ratio 3.4 RATIO (10-20); Calcium,Total 10.4 mg/dL (8.5-10.1); Chloride 99 mmol/L (98-107); EST Glomerular Filtration Rate 2 mL/min (>60); Est Glom Filt Rate - Afr Amer 3 mL/min (>60); Estimated Creatinine Clearance 2.66 ml/min; Globulin 3.8 g/dL (2.2-4.2); Glucose 209 mg/dL (74-106); Potassium 3.4 mmol/L (3.5-5.1); Protein, Total 6.9 g/dL (6.4-8.2); Sodium Level 139 mmol/L (136-145)
[2022-03-08 17:02] LABS: Lactic Acid 4.5 mmol/L (0.4-1.9)
--- NOTE | 2022-03-08 17:27 | CT_ITS ---
EXAM: CT ABDOMEN AND PELVIS WITH INTRAVENOUS CONTRAST CLINICAL INDICATION: pain TECHNIQUE: Helically acquired images were obtained of the abdomen and pelvis with intravenous contrast. This CT exam was performed using one or more of the following dose reduction techniques: automated exposure control, adjustment of the mA and/or kV according to patient size, and/or use of iterative reconstruction technique. This report was created using [employer] report generation technology. CONTRAST: IV 100mL [id number] COMPARISON: 02/02/2022 FINDINGS: LOWER THORAX: Unremarkable. Lung bases are clear. No cardiomegaly. No significant pericardial effusion. ABDOMEN: LIVER: Unremarkable. Homogeneous. No focal mass. GALLBLADDER AND BILE DUCTS: There are surgical clips from a cholecystectomy. No intra- or extrahepatic biliary ductal dilation. PANCREAS: Unremarkable. No focal cystic or solid mass. SPLEEN: Unremarkable. Normal size without focal cystic or solid mass. ADRENALS: Unremarkable. No nodules. KIDNEYS AND URETERS: There is a simple cyst on the left kidney. No follow-up imaging is necessary. Normal renal size and position. No hydronephrosis. STOMACH AND BOWEL: There is mild thickening of the wall of the stomach which is likely due to incomplete distention. There are borderline dilated gas-filled loops of small bowel in the upper abdomen which may represent mild enteritis. There is no obstruction identified. PELVIS: APPENDIX: No evidence of acute appendicitis. BLADDER: Unremarkable. REPRODUCTIVE: Unremarkable as visualized. No mass. ABDOMEN and PELVIS: INTRAPERITONEAL SPACE: There is free fluid anterior liver margin as well as within the pelvis. There is a peritoneal dialysis catheter coiled in the pelvis and the fluid may be due to patient''s dialysis. No free air. BONES/JOINTS: Unremarkable. No suspicious lytic or blastic abnormality. SOFT TISSUES: Unremarkable. No discrete abdominal or pelvic wall hernia. VASCULATURE: Unremarkable. Abdominal aorta is non-dilated. LYMPH NODES: Unremarkable. No enlarged lymph nodes. CT/Abdomen/Pelvis W IV Cont ONLY IMPRESSION: 1. Borderline dilated gas-filled loops of small bowel in the upper abdomen which may represent enteritis. There is no obstruction. 2. Peritoneal dialysis catheter coiled in the pelvis. There is free fluid in the pelvis and upper abdomen possibly due to the patient''s dialysis. Electronically Signed: Spencer Morales MD at 19:56 EST ,
[2022-03-08 18:01] LABS: Lipase 257 U/L (73-393)
--- NOTE | 2022-03-08 18:52 | PCM.HP.STD ---
HPI - General General Date of Admission: 03/08/22 Date of Service: 03/08/22 Chief Complaint: Nausea/vomiting/diarrhea HPI Narrative KAYLI PELAEZ, is a 76 F who presented to the emergency department was coming hospital with nausea/vomiting/diarrhea that has been getting worse over the last 5 days. She reports she was admitted early in February and was found to have C. difficile infection and was placed on vancomycin orally. She stated that she completed her oral vancomycin course at discharge but had some ongoing diarrhea but it improved significantly. She states over the last 5 days she has developed worsening diarrhea with intermittent nausea and vomiting. She denies any abdominal pain. She is on peritoneal dialysis chronically and I did discuss the fluid with her he states the fluid has been clear and that her abdomen has been soft and and not having any issues with her peritoneal dialysis. She states that she really has not had anything to eat or drink today. She had been keeping down fluids prior to today. She denies any fever or chills, hematemesis or hematochezia/melena. She states the emesis is predominantly mucus and consistency. States the diarrhea has really worsened through today and she has had at least 10 episodes of watery diarrhea. She denies any gross blood in her stool. Vital signs emergency department demonstrated temperature of 98.4, blood pressure 130/51, heart rate is 96, respiratory rate 14 and oxygen saturation is 100% on room air. She has not been febrile at all in the emergency department. Her CBC is overall unremarkable. She has no white count and her differential is slightly elevated with a monocytosis. Her chemistry panel shows mild hypokalemia with potassium of 3.4, her bicarb is slightly low at 19 and she has an elevated anion gap at 21. BUN and creatinine are elevated at 53 and 15.8 respectively however as noted she is on peritoneal dialysis and this is close to her baseline. Her glucose was 208 and her calcium was 10.4's. It appears that she is dehydrated. A lactic acid was obtained and found to be 4.5 however on physical exam the patient does not not look all that ill. Liver enzymes were normal. She does not have a gallbladder any longer. Her lipase was 257. With her lactate being elevated I did ask for a CT of the abdomen pelvis with IV contrast which was pending at the time of admission. [facility] Medical History (HFpEF) heart failure with preserved ejection fraction Acute on chronic diastolic (congestive) heart failure Ambulates with cane Anemia Anemia of chronic disease Bilateral edema of lower extremity Blackout C. difficile diarrhea Cardiology follow-up encounter Cataracts, bilateral Chronic diarrhea Chronic diastolic (congestive) heart failure Chronic osteoarthritis Chronic renal failure, stage 4 (severe) Chronic renal failure, stage 5 CPAP (continuous positive airway pressure) dependence Diarrhea Dietary restriction Difficulty swallowing Diverticular disease Easy bruising ESRD (end stage renal disease) Essential (primary) hypertension Eye pressure Flatulence, eructation and gas pain Gastritis determined by endoscopy GERD (gastroesophageal reflux disease) GI bleed Health care maintenance High cholesterol History of CHF (congestive heart failure) History of diverticulosis History of echocardiogram History of edema History of pain when walking History of renal disease History of stress test HLD (hyperlipidemia) HTN (hypertension), malignant Hx of mini strokes Hyperkalemia Hyperparathyroidism Hypersomnolence Hypotension Intraocular pressure increase Left carotid bruit Leg cramps Malaise and fatigue Morbid obesity Neuropathy Non-smoker KHANG (obstructive sleep apnea) Problem with dialysis access Problem with dialysis access Pseudoaneurysm of arteriovenous dialysis fistula Psoriasis Renal artery atherosclerosis Rheumatoid arthritis Secondary pulmonary arterial hypertension Shortness of breath on exertion Syncope Systolic hypertension with cerebrovascular disease TIA (transient ischemic attack) Type 2 diabetes mellitus treated with insulin Uncontrolled hypertension Home Medications ascorbate calcium-bioflavonoid 500 mg-200 mg tablet (Jeannette-C with Bioflavonoids) 1 each PO DAILY SUPPLEMENT 05/03/20 [History Last Taken 02/01/22] disability placard #1 ea 05/27/20 [Rx Last Taken Unknown] hydroxychloroquine 200 mg tablet (Plaquenil) 200 mg PO BID arthritis 07/06/20 [History Last Taken 01/31/22] calcitriol 0.25 mcg capsule (Rocaltrol) 0.25 mcg PO DAILY SUPPLEMENT 07/28/20 [History Last Taken 02/01/22] blood sugar diagnostic #10 ea 09/30/20 [History Last Taken Unknown] blood sugar diagnostic ([employer] Ultra Test strips) #100 ea 10/17/20 [Rx Last Taken Unknown] valsartan 160 mg tablet 160 mg PO DAILY heart #90 tabs 03/28/21 [Rx Last Taken 02/02/22] isosorbide mononitrate 60 mg tablet,extended release 24 hr 60 mg PO LUNCH heart #90 tabs 03/31/21 [Rx Last Taken 02/01/22] coenzyme Q10 50 mg tablet 50 mg PO DAILY SUPPLEMENT 05/18/21 [History Last Taken 01/31/22] tramadol 50 mg tablet 50 mg PO DAILY MUSCLE RELAXANT 11/30/21 [History Last Taken 02/01/22] cholestyramine-aspartame 4 gram oral powder (Cholestyramine Light) 1 g PO BID diarrhea #239.4 grams 12/06/21 [Rx Last Taken Unknown] hydralazine 100 mg tablet 100 mg PO TID ANXIETY 02/02/22 [History Last Taken 02/02/22] omeprazole 20 mg capsule,delayed release 20 mg PO DAILY GERD 02/02/22 [History Last Taken 02/02/22] pen needle, diabetic 29 gauge x 1/2 (BD Ultra-Fine Original Pen Needle) 02/02/22 [History Last Taken Unknown] vitamin B complex and vitamin C no.20-folic acid 1 mg capsule (Renal Caps) 1 cap PO DAILY SUPPLEMENT 02/02/22 [History Last Taken 02/01/22] vancomycin 125 mg capsule 125 mg PO Q6H 10 days #40 caps 02/04/22 [Rx Last Taken Unknown] carvedilol 25 mg tablet 12.5 mg PO BID HEART 02/13/22 [History Last Taken Unknown] doxazosin 4 mg tablet (Cardura) 2 mg PO DAILY HEART 02/15/22 [History Last Taken Unknown] fluconazole 150 mg tablet (Diflucan) 150 mg PO Q3D 2 doses #2 tabs 02/21/22 [Rx Last Taken Unknown] insulin glargine 100 unit/mL (3 mL) subcutaneous pen (Lantus Solostar U-100 Insulin) 22 unit subcut BIDCM DM 02/28/22 [History Last Taken Unknown] Allergy/AdvReac Type Severity Reaction Status Date / Time calcium Allergy Unknown constipatio Verified 03/08/22 14:56 n amiloride Allergy NEEDS Verified 03/08/22 14:56 FOLLOW-UP azithromycin Allergy NEEDS Verified 03/08/22 14:56 [From Zithromax Z-Rickey] FOLLOW-UP bumetanide Allergy Unknown Verified 03/08/22 14:56 chlorthalidone Allergy Unknown Verified 03/08/22 14:56 clonidine HCl [From Catapres] Allergy Rash Verified 03/08/22 14:56 diltiazem Allergy Unknown Verified 03/08/22 14:56 gemfibrozil Allergy Unknown Verified 03/08/22 14:56 lisinopril Allergy NEEDS Verified 03/08/22 14:56 FOLLOW-UP losartan [Losartan] Allergy Unknown Verified 03/08/22 14:56 minoxidil Allergy Unknown Verified 03/08/22 14:56 nifedipine Allergy Unknown Verified 03/08/22 14:56 simvastatin [From Zocor] Allergy Unknown Verified 03/08/22 14:56 triamterene [From Dyazide] Allergy Unknown Verified 03/08/22 14:56 valdecoxib [From Bextra] Allergy Unknown Verified 03/08/22 14:56 verapamil [Verapamil] Allergy Unknown Verified 03/08/22 14:56 atorvastatin AdvReac Unknown Swelling Verified 03/08/22 14:56 esomeprazole [From Nexium] AdvReac Unknown Swelling Verified 03/08/22 14:56 atorvastatin calcium AdvReac Leg Verified 03/08/22 14:56 [From Lipitor] cramps/aching celecoxib [From Celebrex] AdvReac Leg aching Verified 03/08/22 14:56 hydrochlorothiazide AdvReac Legs aching Verified 03/08/22 14:56 indapamide AdvReac Other Verified 03/08/22 14:56 insulin detemir AdvReac Unknown Verified 03/08/22 14:56 [From Levemir] lansoprazole [From Prevacid] AdvReac Legs aching Verified 03/08/22 14:56 metformin HCl AdvReac Diarrhea Verified 03/08/22 14:56 [From Glucophage] pravastatin AdvReac Legs aching Verified 03/08/22 14:56 rosuvastatin calcium AdvReac Legs aching Verified 03/08/22 14:56 [From Crestor] Family History Mother Diabetes Heart disease CVA (cerebral vascular accident) Myocardial infarction had [place] in 70s Father Cancer lung, passed at 70 Brother Kidney disease of renal failure at 65. Sister Diabetes Hypertension Mother Diabetes Heart disease CVA (cerebral vascular accident) Myocardial infarction age 70s Father Cancer lung CA Sister Hypertension Diabetes Surgical History gallbladder removed History of appendectomy History of arteriovenostomy for renal dialysis (~05/2020) History of arteriovenous graft History of colonoscopy S/P breast lumpectomy surgery on finger due to infection Social History household members: spouse housing: house pets and animals: Yes pets and animals: dog(s) Smoking Status: Never smoker alcohol intake: never substance use type: does not use caffeine: Yes Type: tea Number of servings: 4 what type of physical activity do you participate in: none seatbelt use: always do you feel safe at home: Yes ROS Constitutional Constitutional: Reports anorexia, fatigue and weakness; Denies change in weight, chills, fever(s), malaise, night sweats or other Eyes Eyes: Denies blurry vision, change in eye color, change in vision, discharge from eye(s), double vision, erythema, eye pain, loss of vision or other ENT HEENT: Denies abnormal hearing, dysphagia, ear pain, epistaxis, headache(s), hearing loss, nasal congestion, nasal discharge, post nasal drip, sinus pressure, sore throat or other Cardiovascular Cardiovascular: Denies chest pain, claudication, dyspnea on exertion, edema, lightheadedness, orthopnea, palpitations, paroxysmal nocturnal dyspnea, rapid heart rate, syncope or other Respiratory/Chest Respiratory/Chest: Denies cough, dyspnea, excessive phlegm production, hemoptysis, productive cough, shortness of breath at rest, shortness of breath with exertion, wheezing or other Gastrointestinal Gastrointestinal: Reports diarrhea, nausea and vomiting; Denies abdominal pain, coffee ground emesis, constipation, dyspepsia, hematemesis, hematochezia, loose stools, melena or other Genitourinary Genitourinary: Denies burning urination, difficulty urinating, dysuria, hematuria, nocturia, urinary frequency, urinary hesitancy, urinary incontinence, urinary urgency or other Musculoskeletal Musculoskeletal: Denies arthralgias, back pain, joint pain, joint stiffness, joint swelling, myalgias, neck pain or other Neurologic Neurologic: Denies abnormal gait, abnormal speech, confusion, disequilibrium, dizziness, focal weakness, headache(s), numbness, paresthesias, seizure-like activity, seizures, syncope, tingling, tremor(s) or other Psychiatric Psychiatric: Denies anxiety, depression, homicidal ideation, suicidal ideation or other Endocrine Endocrinology: Denies change in body appearance, cold intolerance, excessive sweating, heat intolerance, polydipsia, polyuria or other Hematologic/Lymphatic Hematologic/Lymphatic: Denies anemia, easy bleeding, easy bruising, lymphadenopathy or other Allergic/Immunologic Allergic/Immunologic: Denies rhinitis, hives, eczemia, asthma or other Vital Signs Vital Signs Vital Signs: 03/08/22 14:45 03/08/22 14:54 03/08/22 16:50 Temperature 96 F L Temperature Source Temporal Pulse Rate 67 Respiratory Rate 14 Blood Pressure 120/56 L Blood Pressure Mean 77 Pulse Ox 98 99 98 Oxygen Delivery Method Room Air Room Air Room Air 03/08/22 17:05 Temperature 98.4 F Temperature Source Temporal Pulse Rate 96 Respiratory Rate 72 H Blood Pressure 130/51 H Blood Pressure Mean 77 Pulse Ox 100 Oxygen Delivery Method Room Air Weight Weight: 69.4 kg Body Mass Index (BMI) 26.2 Physical Exam Const alert, oriented x3, no apparent distress and well nourished Constitutional Narrative: Elderly white female lying in bed, no signs of acute distress, at the bedside, patient is very pleasant and nontoxic-appearing but does look as if she is not feeling well General Appearance: cooperative HEENT normocephalic, head/scalp atraumatic and hearing grossly normal bilaterally; Negative for moist oral mucous membranes HEENT Narrative: Mucous membranes are significantly dry, dentures in place, Mallampati 2, no thrush Eyes PERRL, EOMs intact bilaterally and conjunctivae normal Eyes Narrative: No scleral icterus Neck no lymphadenopathy, supple, no JVD and no carotid bruits Neck Narrative: Trach midline, no thyroid enlargement Resp normal respiratory effort, no retractions, no use of accessory muscles and clear to auscultation bilaterally Auscultation: Negative for crackles, rhonchi or wheezes Cardio regular rate, regular rhythm, S1 normal heart sound, S2 normal heart sound, no murmurs, no rub, no gallops and no clicks GI GI Narrative: Bowel sounds are somewhat hyperactive, no tenderness with palpation, no distention, abdomen is soft, PD catheter in place with no drainage surrounding insertion site Extremity no clubbing, cyanosis or edema Extremity Narrative: Pedal and radial pulses are 2+ Skin no rashes or lesions noted, no wounds, skin turgor normal, no jaundice, no petechiae and no mottling Neuro oriented x3, CN's II-XII intact bilaterally, moves all extremities and no focal motor deficits Sensorium / Orientation: awake, alert, oriented to person, oriented to place and oriented to time Speech: speech normal Psych affect normal Psych Narrative: Eye contact is good, no signs of depression Results Lab / Micro Data Attestation: I reviewed the patient's lab results. Result Diagrams: 03/08/22 15:08 03/08/22 15:08 Labs: Laboratory Results - last 24 hr 03/08/22 15:08: WBC 9.9, RBC 3.64 L, Hgb 12.1, Hct 35.8 L, MCV 98.4, MCH 33.2 H, MCHC 33.8, RDW Std Deviation 59.9 H, RDW Coeff of Pepe 16.7 H, Plt Count 182, MPV 12.1 H, Immature Gran % (Auto) 0.300, Neut % (Auto) 68.6, Lymph % (Auto) 16.1 L, [place] % (Auto) 12.9 H, Eos % (Auto) 1.7, Baso % (Auto) 0.4, Absolute Neuts (auto) 6.8, Absolute Lymphs (auto) 1.59, Nucleated RBC % 0 03/08/22 15:08: Sodium 139, Potassium 3.4 L, Chloride 99, Carbon Dioxide 19.0 L, Anion Gap 21 H, BUN 53 H, Creatinine 15.80 H*, Estim Creat Clear Calc 2.66, Est GFR (MDRD) Af Amer 3 L, Est GFR (MDRD) Non-Af 2 L, BUN/Creatinine Ratio 3.4 L, Glucose 209 H, Calcium 10.4 H, Total Bilirubin 0.60, AST 27, ALT 24, Alkaline Phosphatase 120 H, Total Protein 6.9, Albumin 3.1 L, Globulin 3.8, Albumin/Globulin Ratio 0.8 L 03/08/22 15:08: Lipase 257 03/08/22 16:12: Lactic Acid 4.5 H* Assessment & Plan Assessment/Plan (1) Malaise and fatigue: (2) Diarrhea: (3) Nausea and vomiting: (4) Hypokalemia: (5) Lactic acidosis: (6) High anion gap metabolic acidosis: (7) Dehydration: PLAN: Plan Nausea/vomiting/diarrhea -We will gently hydrate with history of renal failure his patient clinically looks dry at this time -Start clear liquid diet -Antiemetics -Check enteric panel and C. difficile -Patient did have recent C. difficile infection and was placed on 10 days of oral vancomycin early in February Hypokalemia -40 mill equivalents p.o. potassium -Repeat lab in a.m. -Check a.m. magnesium level Lactic acidosis -I think this is likely reactive related to her decreased clearance with her impaired renal function and overall dehydrated status -CT of the abdomen pelvis is pending and once reviewed will make any adjustments needed however I really do think this is related to her decreased clearance Elevated anion gap -Likely related to combination of lactic acidosis and starvation ketosis as patient has not eaten today. -Gentle hydration with 1 L of IV fluids--> will utilize D5 normal saline to address the starvation component -Repeat BMP in a.m. Malaise/fatigue/general debility -PT/OT consultation -clinical research manager consultation for discharge assistance End-stage renal disease on PD -Consult network field engineer -PD HTN/HPL/chronic diastolic CHF -Continue aspirin -Continue home Coreg/valsartan/hydrochlorothiazide/doxazosin/amlodipine -Patient was statin allergy at baseline History of anemia -Hemoglobin currently normal and stable GERD -Multiple allergies -Could consider Mylanta if this becomes problematic History of TIA -Continue aspirin -No current acute issues Psoriasis -Continue hydroxychloroquine KHANG -Nocturnal CPAP DVT prophylaxis -Subcu heparin -SCDs CODE STATUS -Full code Charges/Coding Visit Charges Inpatient E&M: 59225 Init Hosp L3
[2022-03-08 20:15] LABS: Reflex Lactate? Y
[2022-03-08 22:09] LABS: Lactic Acid 2.7 mmol/L (0.4-1.9)
[2022-03-08] MEDS: Carvedilol 25 MG Tablet 12.5 MG PO (22:28)
[2022-03-08] MEDS: Hydroxychloroquine 200 MG Tablet PO (22:28)
[2022-03-08] MEDS: hydrALAZINE 50 MG Tablet 100 MG PO (22:28)
[2022-03-08] MEDS: Dextrose 5%/0.9% NaCl 1,000 ML 75 ML IV (22:32)
[2022-03-08] MEDS: Potassium Chloride 10mEq/100mL 10 MEQ/100 ML IV.SOLN. 50 MEQ IV BOLUS (22:34)
[2022-03-08] MEDS: 0.9% Saline Lock 10 ML Syringe IV (22:39)
[2022-03-08] MEDS: Heparin Injection (Vial) 5,000 UNIT/ML VIAL 5000 UNIT SC (22:39)
[2022-03-08] MEDS: Acetaminophen 325 MG Tablet 650 MG PO (23:22)
[2022-03-08 23:35] LABS: Bedside Glucose 158 mg/dL (74-106)
--- NOTE | 2022-03-08 23:36 | CPS ---
cpap not set up-pt does not wear at home
[2022-03-09] VITALS (16 sets, daily range): BP systolic 65–110; BP diastolic 23–69; PULSE 69–87; RESP 16–18; TEMP 36.4–37; O2SAT 94–100
[2022-03-09] MEDS: 0.9% Saline Lock 10 ML Syringe IV ×2 (00:01→08:47)
[2022-03-09] MEDS: Ondansetron 4 MG/2 ML Vial IV ×2 (00:06→08:47)
[2022-03-09 00:20] LABS: Bedside Glucose 171 mg/dL (74-106)
[2022-03-09] MEDS: Potassium Chloride 10mEq/100mL 10 MEQ/100 ML IV.SOLN. 40 MEQ IV BOLUS (01:00)
[2022-03-09 05:29] LABS: Absolute Lymphocyte Count 1.54 X10^3/uL (0.83-4.51); Absolute Neutrophil Count 5.9 X10^3/uL (2.0-7.7); Basophil# 0.04 X10^3/uL; Basophil% 0.5 % (0-1); Eosinophil# 0.25 X10^3/uL; Eosinophils% 2.8 % (0-5); Hematocrit 30.7 % (37-47); Hemoglobin 10.4 g/dL (12.0-15.0); Lymphocyte # 1.54 X10^3/ul (0.83-4.51); Lymphocyte % 17.4 % (19-41); Mean Corp Hgb Conc 33.9 g/dL (32-36); Mean Corpuscular Hgb 33.2 pg (27.0-32.0); Mean Corpuscular Volume 98.1 fL (81-99); Mean Platelet Vol. 11.4 fl (6.2-12.0); Monocyte# 1.06 X10^3/uL; NRBC Flagged by Analyzer 0 % (0-5); Neutrophil # 5.93 X10^3/uL (2.7-7.7); Platelet Count 159 K/mm3 (150-450); RBC Distribution Width CV 16.5 % (11.6-14.6); RBC Distribution Width SD 58.3 fl (35.1-43.9); Red Blood Count 3.13 M/mm3 (4.2-5.4); White Blood Count 8.9 K/mm3 (4.4-11.0)
[2022-03-09 06:29] LABS: BUN 51 mg/dL (7-18); Glucose 240 mg/dL (74-106)
[2022-03-09 06:30] LABS: ALB/GLOB Ratio 0.8 RATIO (0.9-2.4); AST(SGOT) 29 U/L (15-37); Alanine Aminotransfer ALT/SGPT 22 U/L (13-56); Albumin, Serum 2.6 g/dL (3.2-5.0); Alkaline Phosphatase 97 U/L (45-117); Anion Gap 21 (5-15); BUN/Creat Ratio 3.4 RATIO (10-20); Calcium,Total 9.3 mg/dL (8.5-10.1); Chloride 101 mmol/L (98-107); EST Glomerular Filtration Rate 3 mL/min (>60); Est Glom Filt Rate - Afr Amer 3 mL/min (>60); Globulin 3.4 g/dL (2.2-4.2); Magnesium 2.2 mg/dL (1.6-2.6); Phosphorus 9.3 mg/dL (2.5-4.9); Potassium 3.3 mmol/L (3.5-5.1); Sodium Level 138 mmol/L (136-145)
[2022-03-09] MEDS: Insulin Lispro 100 UNIT/ML INSULN.PEN SC ×3 (06:40→15:59)
[2022-03-09] MEDS: Heparin Injection (Vial) 5,000 UNIT/ML VIAL 5000 UNIT SC ×3 (06:41→22:03)
[2022-03-09 07:06] LABS: Bedside Glucose 260 mg/dL (74-106)
[2022-03-09] MEDS: Pantoprazole Sodium 20 MG Tablet PO (07:46)
[2022-03-09] MEDS: Doxazosin 1 MG Tablet 2 MG PO (07:47)
[2022-03-09] MEDS: Carvedilol 25 MG Tablet 12.5 MG PO (07:47)
[2022-03-09] MEDS: Folic Acid/Vitamin B Comp W-C 1 Capsule 1 CAP PO (07:47)
[2022-03-09] MEDS: Insulin Glargine-YFGN 100 UNIT/ML Pen 11 UNIT SC ×2 (07:47→17:11)
[2022-03-09] MEDS: Hydroxychloroquine 200 MG Tablet PO ×2 (07:47→17:11)
[2022-03-09] MEDS: Calcitriol 0.25 MCG Capsule PO (07:48)
--- NOTE | 2022-03-09 08:15 | PN.HOSP_ITS ---
Subjective Subjective Feels better. Anxious to go home. Objective Data Objective Data Vital Signs: Vital Signs Temp Pulse Resp BP Pulse Ox O2 Del Method 37.0 C 83 18 110/69 95 Room Air 03/09/22 07:52 03/09/22 07:52 03/09/22 07:52 03/09/22 07:52 03/09/22 07:52 03/09/22 07:52 Oxygen Delivery Method Room Air Weight: 70 kg Body Mass Index (BMI) 25.6 Intake & Output: Intake and Output for Last 24 Hours 03/07/22 03/08/22 03/09/22 23:59 23:59 23:59 Intake Total 616.67 / 616.67 198.67 / 198.67 Output Total 0 / 0 Balance 616.67 / 616.67 198.67 / 198.67 Lab / Micro Data Result Diagrams: 03/09/22 05:00 03/09/22 05:00 Labs: Laboratory Results - last 24 hr 03/08/22 15:08: WBC 9.9, RBC 3.64 L, Hgb 12.1, Hct 35.8 L, MCV 98.4, MCH 33.2 H, MCHC 33.8, RDW Std Deviation 59.9 H, RDW Coeff of Pepe 16.7 H, Plt Count 182, MPV 12.1 H, Immature Gran % (Auto) 0.300, Neut % (Auto) 68.6, Lymph % (Auto) 16.1 L, [place] % (Auto) 12.9 H, Eos % (Auto) 1.7, Baso % (Auto) 0.4, Absolute Neuts (auto) 6.8, Absolute Lymphs (auto) 1.59, Nucleated RBC % 0 03/08/22 15:08: Sodium 139, Potassium 3.4 L, Chloride 99, Carbon Dioxide 19.0 L, Anion Gap 21 H, BUN 53 H, Creatinine 15.80 H*, Estim Creat Clear Calc 2.66, Est GFR (MDRD) Af Amer 3 L, Est GFR (MDRD) Non-Af 2 L, BUN/Creatinine Ratio 3.4 L, Glucose 209 H, Calcium 10.4 H, Total Bilirubin 0.60, AST 27, ALT 24, Alkaline Phosphatase 120 H, Total Protein 6.9, Albumin 3.1 L, Globulin 3.8, Albumin/Globulin Ratio 0.8 L 03/08/22 15:08: Lipase 257 03/08/22 16:12: Lactic Acid 4.5 H* 03/08/22 21:13: Lactic Acid 2.7 H* 03/08/22 23:13: POC Glucose 158 H 03/08/22 23:58: POC Glucose 171 H 03/09/22 05:00: WBC 8.9, RBC 3.13 L, Hgb 10.4 L, Hct 30.7 L, MCV 98.1, MCH 33.2 H, MCHC 33.9, RDW Std Deviation 58.3 H, RDW Coeff of [place]pe 16.5 H, Plt Count 159, MPV 11.4, Immature Gran % (Auto) 0.300, Neut % (Auto) 67.0, Lymph % (Auto) 17.4 L, [place] % (Auto) 12.0 H, Eos % (Auto) 2.8, Baso % (Auto) 0.5, Absolute Neuts (auto) 5.9, Absolute Lymphs (auto) 1.54, Nucleated RBC % 0 03/09/22 05:00: Sodium 138, Potassium 3.3 L, Chloride 101, Carbon Dioxide 16.0 L , Anion Gap 21 H, BUN 51 H, Creatinine 15.00 H*, Estim Creat Clear Calc 2.80, Est GFR (MDRD) Af Amer 3 L, Est GFR (MDRD) Non-Af 3 L, BUN/Creatinine Ratio 3.4 L, Glucose 240 H, Calcium 9.3, Phosphorus 9.3 H*, Magnesium 2.2, Total Bilirubin 0.50, AST 29, ALT 22, Alkaline Phosphatase 97, Total Protein 6.0 L, Albumin 2.6 L, Globulin 3.4, Albumin/Globulin Ratio 0.8 L 03/09/22 06:39: POC Glucose 260 H Micro: Microbiology 03/08/22 23:45 Stool C. difficile GDH Antigen & Toxins - Final 03/08/22 23:45 Stool Enteric Bacteriology - Final Radiography Diagnostic Testing: Radiology Impression Abdomen/Pelvis CT 03/08/22 17:27 IMPRESSION: 1. Borderline dilated gas-filled loops of small bowel in the upper abdomen which may represent enteritis. There is no obstruction. 2. Peritoneal dialysis catheter coiled in the pelvis. There is free fluid in the pelvis and upper abdomen possibly due to the patient''s dialysis. Electronically Signed: Spencer Morales MD at 19:56 EST , Physical Exam Const alert and no apparent distress HEENT head/scalp atraumatic Resp normal respiratory effort, no retractions, no use of accessory muscles and clear to auscultation bilaterally Cardio regular rate, regular rhythm, S1 normal heart sound and S2 normal heart sound GI normal to inspection, nondistended, normoactive bowel sounds, soft to palpation and non-tender Extremity normal to inspection Assessment & Plan Assessment/Plan (1) C. difficile colitis: PLAN: Recurrent Given recurrence despite being on PO vanc last month, Enteric pathogens negative. Infectious disease consulted: Recommend Dificid 200 mg twice daily for 10 days. (2) Nausea and vomiting: QUALIFIERS: Vomiting type: unspecified Qualified Code(s): R11.2 - Nausea with vomiting, unspecified PLAN: Nausea/vomiting/diarrhea -We will gently hydrate with history of renal failure his patient clinically looks dry at this time -Start clear liquid diet -Antiemetics (3) Malaise and fatigue: PLAN: Malaise/fatigue/general debility -PT/OT consultation -food and beverage manager consultation for discharge assistance (4) Hypokalemia: PLAN: Ongoing despite replacement Could be due to GI losses Continue to replace and monitor Magnesium WNL at 2.2 (5) Lactic acidosis: PLAN: Lactic acidosis -I think this is likely reactive related to her decreased clearance with her impaired renal function and overall dehydrated status -CT of the abdomen pelvis is pending and once reviewed will make any adjustments needed however I really do think this is related to her decreased clearance (6) High anion gap metabolic acidosis: PLAN: AG has been chronically elevated, but this is more pronounced -Likely related to combination of lactic acidosis and starvation ketosis as patient has not eaten today. -Gentle hydration with 1 L of IV fluids--> will utilize D5 normal saline to address the starvation component -Repeat BMP in a.m. Add bicarb tablets PLAN: Plan Chronic conditions: End-stage renal disease on PD -Consult artifacts conservator -PD HTN/HPL/chronic diastolic CHF -Continue aspirin -Continue home Coreg/valsartan/hydrochlorothiazide/doxazosin/amlodipine -Patient was statin allergy at baseline History of anemia -Hemoglobin currently normal and stable GERD -Multiple allergies -Could consider Mylanta if this becomes problematic History of TIA -Continue aspirin -No current acute issues Psoriasis -Continue hydroxychloroquine KHANG -Nocturnal CPAP DVT prophylaxis -Subcu heparin -SCDs CODE STATUS -Full code Charges/Coding Visit Charges Inpatient E&M: 32072 Subs Hosp L2
[2022-03-09] MEDS: Potassium Chloride Oral Tablet 20 MEQ 40 MEQ PO (10:19)
[2022-03-09] MEDS: Acetaminophen 325 MG Tablet 650 MG PO (10:19)
[2022-03-09] MEDS: traMADol 50 MG Tablet PO (10:20)
[2022-03-09] MEDS: Sodium Bicarbonate 650 MG Tablet PO ×4 (10:20→22:03)
[2022-03-09 11:30] LABS: Bedside Glucose 211 mg/dL (74-106)
--- NOTE | 2022-03-09 12:19 | PCM.CONS.R ---
Assessment & Plan Assessment/Plan (1) ESRD (end stage renal disease): PLAN: Continue with CCPD use all 1.5% solution since patient appears dehydrated with near syncope and low blood pressure readings. (2) C. difficile colitis: PLAN: Vancomycin p.o. 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 Complains of itching HPI Consult Data Date of Consult: 03/09/22 HPI Narrative Reason for Consultation: ESRD on CCPD HPI Narrative: KAYLI PELAEZ, is a 76 F well-known to me with ESRD due to diabetes and hypertension presented to emergency room yesterday for 5 days of nausea, vomiting, frequent diarrhea. She has anorexia with poor appetite. Blood pressure has been low normal with near syncopal episodes. Her had set her up for her PD treatment last night with 1.5 and 2.5% solution. She has intermittent abdominal discomfort. She was hospitalized in February for DKA, acute pancreatitis and C. difficile diarrhea. Stool culture for C. difficile toxin was positive again from March 07 and March 08. She was started back on oral vancomycin. She denies any fever chills or cough. Denied cloudy effluent with PD exchanges. [facility] Medical History (HFpEF) heart failure with preserved ejection fraction Acute on chronic diastolic (congestive) heart failure Ambulates with cane Anemia Anemia of chronic disease Bilateral edema of lower extremity Blackout C. difficile diarrhea Cardiology follow-up encounter Cataracts, bilateral Chronic diarrhea Chronic diastolic (congestive) heart failure Chronic osteoarthritis Chronic renal failure, stage 4 (severe) Chronic renal failure, stage 5 CPAP (continuous positive airway pressure) dependence Diarrhea Dietary restriction Difficulty swallowing Diverticular disease Easy bruising ESRD (end stage renal disease) Essential (primary) hypertension Eye pressure Flatulence, eructation and gas pain Gastritis determined by endoscopy GERD (gastroesophageal reflux disease) GI bleed Health care maintenance High cholesterol History of CHF (congestive heart failure) History of diverticulosis History of echocardiogram History of edema History of pain when walking History of renal disease History of stress test HLD (hyperlipidemia) HTN (hypertension), malignant Hx of mini strokes Hyperkalemia Hyperparathyroidism Hypersomnolence Hypotension Intraocular pressure increase Left carotid bruit Leg cramps Malaise and fatigue Morbid obesity Neuropathy Non-smoker KHANG (obstructive sleep apnea) Problem with dialysis access Problem with dialysis access Pseudoaneurysm of arteriovenous dialysis fistula Psoriasis Renal artery atherosclerosis Rheumatoid arthritis Secondary pulmonary arterial hypertension Shortness of breath on exertion Syncope Systolic hypertension with cerebrovascular disease TIA (transient ischemic attack) Type 2 diabetes mellitus treated with insulin Uncontrolled hypertension Home Medications ascorbate calcium-bioflavonoid 500 mg-200 mg tablet (Jeannette-C with Bioflavonoids) 1 each PO DAILY SUPPLEMENT 05/03/20 [History Last Taken 03/03/22] disability placard #1 ea 05/27/20 [Rx Last Taken Unknown] hydroxychloroquine 200 mg tablet (Plaquenil) 200 mg PO BID arthritis 07/06/20 [History Last Taken 03/03/22] calcitriol 0.25 mcg capsule (Rocaltrol) 0.25 mcg PO DAILY SUPPLEMENT 07/28/20 [History Last Taken 03/05/22] blood sugar diagnostic #10 ea 09/30/20 [History Last Taken Unknown] blood sugar diagnostic (CloselyTouch Ultra Test strips) #100 ea 10/17/20 [Rx Last Taken Unknown] valsartan 160 mg tablet 160 mg PO DAILY heart #90 tabs 03/28/21 [Rx Last Taken 03/05/22] isosorbide mononitrate 60 mg tablet,extended release 24 hr 60 mg PO LUNCH heart #90 tabs 03/31/21 [Rx Last Taken 03/03/22] coenzyme Q10 50 mg tablet 50 mg PO DAILY SUPPLEMENT 05/18/21 [History Last Taken 03/06/22] tramadol 50 mg tablet 50 mg PO DAILY MUSCLE RELAXANT 11/30/21 [History Last Taken 03/06/22] hydralazine 100 mg tablet 100 mg PO TID HTN 02/02/22 [History Last Taken 03/07/22] omeprazole 20 mg capsule,delayed release 20 mg PO DAILY GERD 02/02/22 [History Last Taken 03/07/22] pen needle, diabetic 29 gauge x 1/2 (BD Ultra-Fine Original Pen Needle) 02/02/22 [History Last Taken Unknown] vitamin B complex and vitamin C no.20-folic acid 1 mg capsule (Renal Caps) 1 cap PO DAILY SUPPLEMENT 02/02/22 [History Last Taken 03/07/22] vancomycin 125 mg capsule 125 mg PO Q6H 10 days #40 caps 02/04/22 [Rx Last Taken 03/03/22] carvedilol 25 mg tablet 12.5 mg PO BID HEART 02/13/22 [History Last Taken 03/06/22] doxazosin 4 mg tablet (Cardura) 2 mg PO DAILY HEART 02/15/22 [History Last Taken 03/06/22] insulin glargine 100 unit/mL (3 mL) subcutaneous pen (Lantus Solostar U-100 Insulin) 22 unit subcut BIDCM DM 02/28/22 [History Last Taken 03/06/22] Allergy/AdvReac Type Severity Reaction Status Date / Time calcium Allergy Unknown constipatio Verified 03/08/22 14:56 n amiloride Allergy NEEDS Verified 03/08/22 14:56 FOLLOW-UP azithromycin Allergy NEEDS Verified 03/08/22 14:56 [From Zithromax Z-Rickey] FOLLOW-UP bumetanide Allergy Unknown Verified 03/08/22 14:56 chlorthalidone Allergy Unknown Verified 03/08/22 14:56 clonidine HCl [From Catapres] Allergy Rash Verified 03/08/22 14:56 diltiazem Allergy Unknown Verified 03/08/22 14:56 gemfibrozil Allergy Unknown Verified 03/08/22 14:56 lisinopril Allergy NEEDS Verified 03/08/22 14:56 FOLLOW-UP losartan [Losartan] Allergy Unknown Verified 03/08/22 14:56 minoxidil Allergy Unknown Verified 03/08/22 14:56 nifedipine Allergy Unknown Verified 03/08/22 14:56 simvastatin [From Zocor] Allergy Unknown Verified 03/08/22 14:56 triamterene [From Dyazide] Allergy Unknown Verified 03/08/22 14:56 valdecoxib [From Bextra] Allergy Unknown Verified 03/08/22 14:56 verapamil [Verapamil] Allergy Unknown Verified 03/08/22 14:56 atorvastatin AdvReac Unknown Swelling Verified 03/08/22 14:56 esomeprazole [From Nexium] AdvReac Unknown Swelling Verified 03/08/22 14:56 atorvastatin calcium AdvReac Leg Verified 03/08/22 14:56 [From Lipitor] cramps/aching celecoxib [From Celebrex] AdvReac Leg aching Verified 03/08/22 14:56 hydrochlorothiazide AdvReac Legs aching Verified 03/08/22 14:56 indapamide AdvReac Other Verified 03/08/22 14:56 insulin detemir AdvReac Unknown Verified 03/08/22 14:56 [From Levemir] lansoprazole [From Prevacid] AdvReac Legs aching Verified 03/08/22 14:56 metformin HCl AdvReac Diarrhea Verified 03/08/22 14:56 [From Glucophage] pravastatin AdvReac Legs aching Verified 03/08/22 14:56 rosuvastatin calcium AdvReac Legs aching Verified 03/08/22 14:56 [From Crestor] Family History Mother Diabetes Heart disease CVA (cerebral vascular accident) Myocardial infarction had [place] in 70s Father Cancer lung, passed at 70 Brother Kidney disease of renal failure at 65. Sister Diabetes Hypertension Mother Diabetes Heart disease CVA (cerebral vascular accident) Myocardial infarction age 70s Father Cancer lung CA Sister Hypertension Diabetes Surgical History gallbladder removed History of appendectomy History of arteriovenostomy for renal dialysis (~05/2020) History of arteriovenous graft History of colonoscopy S/P breast lumpectomy surgery on finger due to infection Social History household members: spouse housing: house pets and animals: Yes pets and animals: dog(s) Smoking Status: Never smoker alcohol intake: never substance use type: does not use caffeine: Yes Type: tea Number of servings: 4 what type of physical activity do you participate in: none seatbelt use: always do you feel safe at home: Yes ROS Constitutional Constitutional: Reports weakness and weight loss; Denies chills, fever(s) or malaise Eyes Eyes: Denies loss of vision ENT HEENT: Reports dry mouth; Denies loss taste/smell Cardiovascular Cardiovascular: Denies chest pain, dyspnea on exertion or edema Respiratory/Chest Respiratory/Chest: Denies dry cough, dyspnea on exertion or hemoptysis Gastrointestinal Gastrointestinal: Reports abdominal pain, anorexia, diarrhea and vomiting; Denies hematemesis or melena Genitourinary Genitourinary: Reports oliguria Musculoskeletal Musculoskeletal: Denies joint swelling Integumentary Integumentary: Reports pruritus Neurologic Neurologic: Reports weakness and other Details: Near syncope, lightheadedness Psychiatric Psychiatric: Denies anxiety or confusion Endocrine Endocrinology: Denies cold intolerance Hematologic/Lymphatic Hematologic/Lymphatic: Reports anemia Physical Exam Const alert and oriented x3 Constitutional Narrative: Generalized weakness Resp clear to auscultation bilaterally Cardio regular rate GI non-tender and non-distended Auscultation: normoactive bowel sounds Palpation: soft Extremity no clubbing, cyanosis or edema Neuro CN's II-XII intact bilaterally Sensorium / Orientation: awake Psych cooperative Medical Records Data Medical Nutrition Assessment Dietitian: Malnutrition Criteria Met Start: 03/09/22 11:05 Freq: Status: Active Protocol: Document 03/09/22 11:06 (Rec: 03/09/22 11:06 [id number]) Nutrition Malnutrition Evidence of Malnutrition Exists Yes Malnutrition (severe): Acute Illness/Injury Evidenced By Suboptimal Energy Intake ( Severe),Weight Loss (Severe) Clinical Problem Acute Disease or Injury Related Malnutrition Etiology severe, acute malnutrition related to inadequate energy intake, GI dysfunction Signs/Symptoms as evidenced by unintenitonal wt loss of 3.7#/2.4% 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 Will add ensure clear 120mL 4x/day w/ medpass while on clear liquid diet given evidence of acute malnutrition. Lab / Micro Data Result Diagrams: 03/09/22 05:00 03/09/22 05:00 Labs: Laboratory Results - last 24 hr 03/08/22 15:08: WBC 9.9, RBC 3.64 L, Hgb 12.1, Hct 35.8 L, MCV 98.4, MCH 33.2 H, MCHC 33.8, RDW Std Deviation 59.9 H, RDW Coeff of Pepe 16.7 H, Plt Count 182, MPV 12.1 H, Immature Gran % (Auto) 0.300, Neut % (Auto) 68.6, Lymph % (Auto) 16.1 L, [place] % (Auto) 12.9 H, Eos % (Auto) 1.7, Baso % (Auto) 0.4, Absolute Neuts (auto) 6.8, Absolute Lymphs (auto) 1.59, Nucleated RBC % 0 03/08/22 15:08: Sodium 139, Potassium 3.4 L, Chloride 99, Carbon Dioxide 19.0 L, Anion Gap 21 H, BUN 53 H, Creatinine 15.80 H*, Estim Creat Clear Calc 2.66, Est GFR (MDRD) Af Amer 3 L, Est GFR (MDRD) Non-Af 2 L, BUN/Creatinine Ratio 3.4 L, Glucose 209 H, Calcium 10.4 H, Total Bilirubin 0.60, AST 27, ALT 24, Alkaline Phosphatase 120 H, Total Protein 6.9, Albumin 3.1 L, Globulin 3.8, Albumin/Globulin Ratio 0.8 L 03/08/22 15:08: Lipase 257 03/08/22 16:12: Lactic Acid 4.5 H* 03/08/22 21:13: Lactic Acid 2.7 H* 03/08/22 23:13: POC Glucose 158 H 03/08/22 23:58: POC Glucose 171 H 03/09/22 05:00: WBC 8.9, RBC 3.13 L, Hgb 10.4 L, Hct 30.7 L, MCV 98.1, MCH 33.2 H, MCHC 33.9, RDW Std Deviation 58.3 H, RDW Coeff of [place] 16.5 H, Plt Count 159, MPV 11.4, Immature Gran % (Auto) 0.300, Neut % (Auto) 67.0, Lymph % (Auto) 17.4 L, [place] % (Auto) 12.0 H, Eos % (Auto) 2.8, Baso % (Auto) 0.5, Absolute Neuts (auto) 5.9, Absolute Lymphs (auto) 1.54, Nucleated RBC % 0 03/09/22 05:00: Sodium 138, Potassium 3.3 L, Chloride 101, Carbon Dioxide 16.0 L, Anion Gap 21 H, BUN 51 H, Creatinine 15.00 H*, Estim Creat Clear Calc 2.80, Est GFR (MDRD) Af Amer 3 L, Est GFR (MDRD) Non-Af 3 L, BUN/Creatinine Ratio 3.4 L, Glucose 240 H, Calcium 9.3, Phosphorus 9.3 H*, Magnesium 2.2, Total Bilirubin 0.50, AST 29, ALT 22, Alkaline Phosphatase 97, Total Protein 6.0 L, Albumin 2.6 L, Globulin 3.4, Albumin/Globulin Ratio 0.8 L 03/09/22 06:39: POC Glucose 260 H 03/09/22 11:00: POC Glucose 211 H Micro: Microbiology 03/08/22 23:45 Stool C. difficile GDH Antigen & Toxins - Final 03/08/22 23:45 Stool Enteric Bacteriology - Final Radiology Impression Abdomen/Pelvis CT 03/08/22 17:27 IMPRESSION: 1. Borderline dilated gas-filled loops of small bowel in the upper abdomen which may represent enteritis. There is no obstruction. 2. Peritoneal dialysis catheter coiled in the pelvis. There is free fluid in the pelvis and upper abdomen possibly due to the patient''s dialysis. Electronically Signed: Spencer Morales MD at 19:56 EST ,
[2022-03-09] MEDS: Isosorbide Mononitrate 60 MG Tablet PO (12:56)
--- NOTE | 2022-03-09 13:52 | PCM.CONS.GEN ---
Assessment & Plan Assessment/Plan (1) C. difficile colitis: PLAN: We will treat with Dificid 200 mg p.o. twice a day for 10 days for her recurrent C. difficile infection. HPI Consult Data Date of Consult: 03/09/22 HPI Narrative Reason for Consultation: Recurrent C. difficile infection HPI Narrative: KAYLI PELAEZ, is a 76 F who presents nausea vomiting and recurrent diarrhea. Patient has multiple comorbidities including diabetes mellitus complicated by end-stage renal disease on CAPD. Patient denies any fevers or chills. Patient did have episode of C. difficile infection in late January and treated with oral vancomycin for 10 days with some clinical improvement. Patient states her recurrent diarrhea over the past 7 to 10 days along with nausea and vomiting. No abdominal pain. No fevers. Was restarted on oral vancomycin upon admission. Denies any history of C. difficile prior to January 2022. Does not recall any oral antibiotic therapy to treat her C. difficile initially. [facility] Medical History (HFpEF) heart failure with preserved ejection fraction Acute on chronic diastolic (congestive) heart failure Ambulates with cane Anemia Anemia of chronic disease Bilateral edema of lower extremity Blackout C. difficile diarrhea Cardiology follow-up encounter Cataracts, bilateral Chronic diarrhea Chronic diastolic (congestive) heart failure Chronic osteoarthritis Chronic renal failure, stage 4 (severe) Chronic renal failure, stage 5 CPAP (continuous positive airway pressure) dependence Diarrhea Dietary restriction Difficulty swallowing Diverticular disease Easy bruising ESRD (end stage renal disease) Essential (primary) hypertension Eye pressure Flatulence, eructation and gas pain Gastritis determined by endoscopy GERD (gastroesophageal reflux disease) GI bleed Health care maintenance High cholesterol History of CHF (congestive heart failure) History of diverticulosis History of echocardiogram History of edema History of pain when walking History of renal disease History of stress test HLD (hyperlipidemia) HTN (hypertension), malignant Hx of mini strokes Hyperkalemia Hyperparathyroidism Hypersomnolence Hypotension Intraocular pressure increase Left carotid bruit Leg cramps Malaise and fatigue Morbid obesity Neuropathy Non-smoker KHANG (obstructive sleep apnea) Problem with dialysis access Problem with dialysis access Pseudoaneurysm of arteriovenous dialysis fistula Psoriasis Renal artery atherosclerosis Rheumatoid arthritis Secondary pulmonary arterial hypertension Shortness of breath on exertion Syncope Systolic hypertension with cerebrovascular disease TIA (transient ischemic attack) Type 2 diabetes mellitus treated with insulin Uncontrolled hypertension Home Medications ascorbate calcium-bioflavonoid 500 mg-200 mg tablet (Jeannette-C with Bioflavonoids) 1 each PO DAILY SUPPLEMENT 05/03/20 [History Last Taken 03/03/22] disability placard #1 ea 05/27/20 [Rx Last Taken Unknown] hydroxychloroquine 200 mg tablet (Plaquenil) 200 mg PO BID arthritis 07/06/20 [History Last Taken 03/03/22] calcitriol 0.25 mcg capsule (Rocaltrol) 0.25 mcg PO DAILY SUPPLEMENT 07/28/20 [History Last Taken 03/05/22] blood sugar diagnostic #10 ea 09/30/20 [History Last Taken Unknown] blood sugar diagnostic (Recommendi Ultra Test strips) #100 ea 10/17/20 [Rx Last Taken Unknown] valsartan 160 mg tablet 160 mg PO DAILY heart #90 tabs 03/28/21 [Rx Last Taken 03/05/22] isosorbide mononitrate 60 mg tablet,extended release 24 hr 60 mg PO LUNCH heart #90 tabs 03/31/21 [Rx Last Taken 03/03/22] coenzyme Q10 50 mg tablet 50 mg PO DAILY SUPPLEMENT 05/18/21 [History Last Taken 03/06/22] tramadol 50 mg tablet 50 mg PO DAILY MUSCLE RELAXANT 11/30/21 [History Last Taken 03/06/22] hydralazine 100 mg tablet 100 mg PO TID HTN 02/02/22 [History Last Taken 03/07/22] omeprazole 20 mg capsule,delayed release 20 mg PO DAILY GERD 02/02/22 [History Last Taken 03/07/22] pen needle, diabetic 29 gauge x 1/2 (BD Ultra-Fine Original Pen Needle) 02/02/22 [History Last Taken Unknown] vitamin B complex and vitamin C no.20-folic acid 1 mg capsule (Renal Caps) 1 cap PO DAILY SUPPLEMENT 02/02/22 [History Last Taken 03/07/22] vancomycin 125 mg capsule 125 mg PO Q6H 10 days #40 caps 02/04/22 [Rx Last Taken 03/03/22] carvedilol 25 mg tablet 12.5 mg PO BID HEART 02/13/22 [History Last Taken 03/06/22] doxazosin 4 mg tablet (Cardura) 2 mg PO DAILY HEART 02/15/22 [History Last Taken 03/06/22] insulin glargine 100 unit/mL (3 mL) subcutaneous pen (Lantus Solostar U-100 Insulin) 22 unit subcut BIDCM DM 02/28/22 [History Last Taken 03/06/22] Allergy/AdvReac Type Severity Reaction Status Date / Time calcium Allergy Unknown constipatio Verified 03/08/22 14:56 n amiloride Allergy NEEDS Verified 03/08/22 14:56 FOLLOW-UP azithromycin Allergy NEEDS Verified 03/08/22 14:56 [From Zithromax Z-Rickey] FOLLOW-UP bumetanide Allergy Unknown Verified 03/08/22 14:56 chlorthalidone Allergy Unknown Verified 03/08/22 14:56 clonidine HCl [From Catapres] Allergy Rash Verified 03/08/22 14:56 diltiazem Allergy Unknown Verified 03/08/22 14:56 gemfibrozil Allergy Unknown Verified 03/08/22 14:56 lisinopril Allergy NEEDS Verified 03/08/22 14:56 FOLLOW-UP losartan [Losartan] Allergy Unknown Verified 03/08/22 14:56 minoxidil Allergy Unknown Verified 03/08/22 14:56 nifedipine Allergy Unknown Verified 03/08/22 14:56 simvastatin [From Zocor] Allergy Unknown Verified 03/08/22 14:56 triamterene [From Dyazide] Allergy Unknown Verified 03/08/22 14:56 valdecoxib [From Bextra] Allergy Unknown Verified 03/08/22 14:56 verapamil [Verapamil] Allergy Unknown Verified 03/08/22 14:56 atorvastatin AdvReac Unknown Swelling Verified 03/08/22 14:56 esomeprazole [From Nexium] AdvReac Unknown Swelling Verified 03/08/22 14:56 atorvastatin calcium AdvReac Leg Verified 03/08/22 14:56 [From Lipitor] cramps/aching celecoxib [From Celebrex] AdvReac Leg aching Verified 03/08/22 14:56 hydrochlorothiazide AdvReac Legs aching Verified 03/08/22 14:56 indapamide AdvReac Other Verified 03/08/22 14:56 insulin detemir AdvReac Unknown Verified 03/08/22 14:56 [From Levemir] lansoprazole [From Prevacid] AdvReac Legs aching Verified 03/08/22 14:56 metformin HCl AdvReac Diarrhea Verified 03/08/22 14:56 [From Glucophage] pravastatin AdvReac Legs aching Verified 03/08/22 14:56 rosuvastatin calcium AdvReac Legs aching Verified 03/08/22 14:56 [From Crestor] Family History Mother Diabetes Heart disease CVA (cerebral vascular accident) Myocardial infarction had [place] in 70s Father Cancer lung, passed at 70 Brother Kidney disease of renal failure at 65. Sister Diabetes Hypertension Mother Diabetes Heart disease CVA (cerebral vascular accident) Myocardial infarction age 70s Father Cancer lung CA Sister Hypertension Diabetes Surgical History gallbladder removed History of appendectomy History of arteriovenostomy for renal dialysis (~05/2020) History of arteriovenous graft History of colonoscopy S/P breast lumpectomy surgery on finger due to infection Social History household members: spouse housing: house pets and animals: Yes pets and animals: dog(s) Smoking Status: Never smoker alcohol intake: never substance use type: does not use caffeine: Yes Type: tea Number of servings: 4 what type of physical activity do you participate in: none seatbelt use: always do you feel safe at home: Yes ROS ROS Narrative As stated in history of present illness otherwise negative Physical Exam Narrative Alert and responsive chronically ill-appearing female lungs are clear heart exam S1-S2 abdomen soft nontender with a PD catheter in place Medical Records Data Medical Nutrition Assessment Dietitian: Malnutrition Criteria Met Start: 03/09/22 11:05 Freq: Status: Active Protocol: Document 03/09/22 11:06 (Rec: 03/09/22 11:06 [id number]) Nutrition Malnutrition Evidence of Malnutrition Exists Yes Malnutrition (severe): Acute Illness/Injury Evidenced By Suboptimal Energy Intake ( Severe),Weight Loss (Severe) Clinical Problem Acute Disease or Injury Related Malnutrition Etiology severe, acute malnutrition related to inadequate energy intake, GI dysfunction Signs/Symptoms as evidenced by unintenitonal wt loss of 3.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 Will add ensure clear 120mL 4x/day w/ medpass while on clear liquid diet given evidence of acute malnutrition. Lab / Micro Data Result Diagrams: 03/09/22 05:00 03/09/22 05:00 Labs: Laboratory Results - last 24 hr 03/08/22 15:08: WBC 9.9, RBC 3.64 L, Hgb 12.1, Hct 35.8 L, MCV 98.4, MCH 33.2 H, MCHC 33.8, RDW Std Deviation 59.9 H, RDW Coeff of Pepe 16.7 H, Plt Count 182, MPV 12.1 H, Immature Gran % (Auto) 0.300, Neut % (Auto) 68.6, Lymph % (Auto) 16.1 L, [place] % (Auto) 12.9 H, Eos % (Auto) 1.7, Baso % (Auto) 0.4, Absolute Neuts (auto) 6.8, Absolute Lymphs (auto) 1.59, Nucleated RBC % 0 03/08/22 15:08: Sodium 139, Potassium 3.4 L, Chloride 99, Carbon Dioxide 19.0 L, Anion Gap 21 H, BUN 53 H, Creatinine 15.80 H*, Estim Creat Clear Calc 2.66, Est GFR (MDRD) Af Amer 3 L, Est GFR (MDRD) Non-Af 2 L, BUN/Creatinine Ratio 3.4 L, Glucose 209 H, Calcium 10.4 H, Total Bilirubin 0.60, AST 27, ALT 24, Alkaline Phosphatase 120 H, Total Protein 6.9, Albumin 3.1 L, Globulin 3.8, Albumin/Globulin Ratio 0.8 L 03/08/22 15:08: Lipase 257 03/08/22 16:12: Lactic Acid 4.5 H* 03/08/22 21:13: Lactic Acid 2.7 H* 03/08/22 23:13: POC Glucose 158 H 03/08/22 23:58: POC Glucose 171 H 03/09/22 05:00: WBC 8.9, RBC 3.13 L, Hgb 10.4 L, Hct 30.7 L, MCV 98.1, MCH 33.2 H, MCHC 33.9, RDW Std Deviation 58.3 H, RDW Coeff of [place] 16.5 H, Plt Count 159, MPV 11.4, Immature Gran % (Auto) 0.300, Neut % (Auto) 67.0, Lymph % (Auto) 17.4 L, [place] % (Auto) 12.0 H, Eos % (Auto) 2.8, Baso % (Auto) 0.5, Absolute Neuts (auto) 5.9, Absolute Lymphs (auto) 1.54, Nucleated RBC % 0 03/09/22 05:00: Sodium 138, Potassium 3.3 L, Chloride 101, Carbon Dioxide 16.0 L, Anion Gap 21 H, BUN 51 H, Creatinine 15.00 H*, Estim Creat Clear Calc 2.80, Est GFR (MDRD) Af Amer 3 L, Est GFR (MDRD) Non-Af 3 L, BUN/Creatinine Ratio 3.4 L, Glucose 240 H, Calcium 9.3, Phosphorus 9.3 H*, Magnesium 2.2, Total Bilirubin 0.50, AST 29, ALT 22, Alkaline Phosphatase 97, Total Protein 6.0 L, Albumin 2.6 L, Globulin 3.4, Albumin/Globulin Ratio 0.8 L 03/09/22 06:39: POC Glucose 260 H 03/09/22 11:00: POC Glucose 211 H Micro: Microbiology 03/08/22 23:45 Stool C. difficile GDH Antigen & Toxins - Final 03/08/22 23:45 Stool Enteric Bacteriology - Final Radiology Impression Abdomen/Pelvis CT 03/08/22 17:27 IMPRESSION: 1. Borderline dilated gas-filled loops of small bowel in the upper abdomen which may represent enteritis. There is no obstruction. 2. Peritoneal dialysis catheter coiled in the pelvis. There is free fluid in the pelvis and upper abdomen possibly due to the patient''s dialysis. Electronically Signed: Spencer Morales MD at 19:56 EST ,
--- NOTE | 2022-03-09 15:46 | CASEMGMT ---
CHANO CORTEZ DC Planning assessment: CHANO CORTEZ to pt's bedside for face to face assessment for initial transition/care coordination planning. Pt alert, in Trendelenburg position, and states she is not feeling well. Permission provided for this RN DANA to contact her . Call placed to pt's Marcos. CHANO CORTEZ introduced self and role at [facility]. Pt's spouse voiced understanding and agreement to participate in assessment. Care providers, pharmacy, and demographics verified. Assessment findings from previous admission reviewed with spouse for changes. PCP: Dr Wallis Specialists: Dr Aguilar-nephrology. Pt does home peritoneal dialysis. Dr Hui-cardiology. 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 Preferred Pharmacy: [facility] Retail Insurance: [employer] Prescription Benefit: yes Living Will/HPOA: Has done LW and HCPOA, who is her LNOK: , Marcos. Dtr, Silvia Living Arrangements: Lives w/ and dtr in one-story home w/2 steps to enter. Statse pt is independent w/ADL's. Family assists with household tasks. Transportation: Family provides as needed DME: cane, walker, CPAP (does not use), glucometer and corresponding supplies. SNF: none previously HHC: Previously but unable to recall provider name. Discussed PT eval with pt's spouse and pt's noted weakness. Pt's spouse's goal is for pt to return home at discharge. Reviewed expected need for therapy at discharge with determination if HH or SNF LOC is appropriate when pt has improved clinically. Will continue to monitor pt's clinical progress and her progress with PT for final determination of discharge LOC needs. Shyam Velazquez RN CM
[2022-03-09] MEDS: Vancomycin HCl 250 MG Capsule 500 MG PO ×3 (15:50→23:33)
[2022-03-09] MEDS: Ensure Clear 120 ML Liquid PO ×2 (15:50→22:03)
[2022-03-09 16:35] LABS: Bedside Glucose 174 mg/dL (74-106)
--- NOTE | 2022-03-09 17:56 | DIALYSIS ---
CCPD initiated without difficulties. Pt stable and alert Initial drain completed Effluent clear yellow no fibrin noted. initial fill in progress without complications. Dressing to be changed in morning per pt. Pt tolerating tx. Report to CHANO Lopez
[2022-03-09 22:30] LABS: Bedside Glucose 191 mg/dL (74-106)
[2022-03-10] VITALS (7 sets, daily range): BP systolic 72–116; BP diastolic 32–46; PULSE 76–95; RESP 14–18; TEMP 36.6–36.9; O2SAT 96–99
[2022-03-10] MEDS: Acetaminophen 325 MG Tablet 650 MG PO (03:06)
[2022-03-10] MEDS: Vancomycin HCl 250 MG Capsule 500 MG PO ×3 (06:26→17:15)
[2022-03-10] MEDS: Heparin Injection (Vial) 5,000 UNIT/ML VIAL 5000 UNIT SC ×3 (06:29→22:41)
[2022-03-10 06:42] LABS: Absolute Lymphocyte Count 1.56 X10^3/uL (0.83-4.51); Absolute Neutrophil Count 5.3 X10^3/uL (2.0-7.7); Basophil# 0.02 X10^3/uL; Basophil% 0.2 % (0-1); Eosinophil# 0.47 X10^3/uL; Eosinophils% 5.6 % (0-5); Hematocrit 26.2 % (37-47); Hemoglobin 8.7 g/dL (12.0-15.0); Lymphocyte # 1.56 X10^3/ul (0.83-4.51); Lymphocyte % 18.6 % (19-41); Mean Corp Hgb Conc 33.2 g/dL (32-36); Mean Corpuscular Volume 99.2 fL (81-99); Mean Platelet Vol. 11.3 fl (6.2-12.0); Monocyte# 0.99 X10^3/uL; Monocyte% 11.8 % (0-10); NRBC Flagged by Analyzer 0 % (0-5); Neutrophil % 63.4 % (47-70); Platelet Count 147 K/mm3 (150-450); RBC Distribution Width CV 16.5 % (11.6-14.6); RBC Distribution Width SD 58.2 fl (35.1-43.9); Red Blood Count 2.64 M/mm3 (4.2-5.4); White Blood Count 8.4 K/mm3 (4.4-11.0)
--- NOTE | 2022-03-10 06:49 | NURSING ---
dialysis nurse in to see pt and stop peritoneal dialysis. made her aware there is bactroban ordered for pt every drsg changes in pts med drawer.
[2022-03-10 06:55] LABS: Bedside Glucose 98 mg/dL (74-106)
[2022-03-10 07:06] LABS: Anion Gap 16 (5-15); BUN 45 mg/dL (7-18); BUN/Creat Ratio 3.5 RATIO (10-20); Calcium,Total 8.9 mg/dL (8.5-10.1); Chloride 102 mmol/L (98-107); EST Glomerular Filtration Rate 3 mL/min (>60); Est Glom Filt Rate - Afr Amer 4 mL/min (>60); Estimated Creatinine Clearance 3.23 ml/min; Glucose 96 mg/dL (74-106); Potassium 3.1 mmol/L (3.5-5.1); Sodium Level 138 mmol/L (136-145)
[2022-03-10] MEDS: Mupirocin Ointment 22gm Tube 1 APPLIC TOPICAL (07:18)
--- NOTE | 2022-03-10 08:16 | PN.HOSP_ITS ---
Subjective Subjective Feeling dizzy sitting in chair. Was able to get up today w/o difficulty. Objective Data Objective Data Vital Signs: Vital Signs Temp Pulse Resp BP Pulse Ox O2 Del Method 36.6 C 78 16 93/46 L 96 Room Air 03/10/22 02:39 03/10/22 02:39 03/10/22 02:39 03/10/22 02:39 03/10/22 02:39 03/10/22 02:39 Oxygen Delivery Method Room Air Weight: 69.4 kg Body Mass Index (BMI) 25.6 Intake & Output: Intake and Output for Last 24 Hours 03/08/22 03/09/22 03/10/22 23:59 23:59 23:59 Intake Total 616.67 / 616.67 1648.67 / 1648.67 Output Total 0 / 0 Balance 616.67 / 616.67 1648.67 / 1648.67 Medical Nutrition Assessment Dietitian: Malnutrition Criteria Met Start: 03/09/22 11:05 Freq: Status: Active Protocol: Document 03/09/22 11:06 (Rec: 03/09/22 11:06 [id number]) Nutrition Malnutrition Evidence of Malnutrition Exists Yes Malnutrition (severe): Acute Illness/Injury Evidenced By Suboptimal Energy Intake ( Severe),Weight Loss (Severe) Clinical Problem Acute Disease or Injury Related Malnutrition Etiology severe, acute malnutrition related to inadequate energy intake, GI dysfunction Signs/Symptoms as evidenced by unintenitonal wt loss of 3.7#/2.4% 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 Will add ensure clear 120mL 4x/day w/ medpass while on clear liquid diet given evidence of acute malnutrition. Lab / Micro Data Result Diagrams: 03/10/22 06:10 03/10/22 06:10 Labs: Laboratory Results - last 24 hr 03/09/22 11:00: POC Glucose 211 H 03/09/22 15:58: POC Glucose 174 H 03/09/22 22:08: POC Glucose 191 H 03/10/22 06:10: WBC 8.4, RBC 2.64 L, Hgb 8.7 L, Hct 26.2 L, MCV 99.2 H, MCH 33.0 H, MCHC 33.2, RDW Std Deviation 58.2 H, RDW Coeff of Pepe 16.5 H, Plt Count 147 L , MPV 11.3, Immature Gran % (Auto) 0.400, Neut % (Auto) 63.4, Lymph % (Auto) 18.6 L, Dale % (Auto) 11.8 H, Eos % (Auto) 5.6 H, Baso % (Auto) 0.2, Absolute Neuts (auto) 5.3, Absolute Lymphs (auto) 1.56, Nucleated RBC % 0 03/10/22 06:10: Sodium 138, Potassium 3.1 L, Chloride 102, Carbon Dioxide 20.0 L , Anion Gap 16 H, BUN 45 H, Creatinine 13.00 H*, Estim Creat Clear Calc 3.23, Est GFR (MDRD) Af Amer 4 L, Est GFR (MDRD) Non-Af 3 L, BUN/Creatinine Ratio 3.5 L, Glucose 96, Calcium 8.9 03/10/22 06:31: POC Glucose 98 Micro: Microbiology 03/08/22 23:45 Stool C. 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 Infectious disease consulted: Recommend Dificid 200 mg twice daily for 10 days. Currently on PO vanc 500 Q6h (2) Nausea and vomiting: QUALIFIERS: Vomiting type: unspecified Qualified Code(s): R11.2 - Nausea with vomiting, unspecified PLAN: Nausea/vomiting/diarrhea -We will gently hydrate with history of renal failure his patient clinically looks dry at this time -advance diet -Antiemetics (3) Malaise and fatigue: PLAN: Malaise/fatigue/general debility -PT/OT consultation -stakeholder manager consultation for discharge assistance (4) Hypokalemia: PLAN: Ongoing despite replacement Could be due to GI losses Continue to replace and monitor Magnesium WNL at 2.2 (5) Lactic acidosis: PLAN: Lactic acidosis -I think this is likely reactive related to her decreased clearance with her impaired renal function and overall dehydrated status -CT of the abdomen pelvis is pending and once reviewed will make any adjustments needed however I really do think this is related to her decreased clearance (6) High anion gap metabolic acidosis: PLAN: AG has been chronically elevated, but this is more pronounced -Likely related to combination of lactic acidosis and starvation ketosis as patient has not eaten today. -Gentle hydration with 1 L of IV fluids--> will utilize D5 normal saline to address the starvation component -Repeat BMP in a.m. Add bicarb tablets (7) Hypotension: PLAN: ongoing, but improved. DC cardura, isosorbide, valsartan carvedilol decreased to 3.125 BID consider midodrine if persists Will administer 500cc NS. PLAN: Plan Chronic conditions: End-stage renal disease on PD -Consult barbering teacher -PD HTN/HPL/chronic diastolic CHF -Continue aspirin -Continue home Coreg/valsartan/hydrochlorothiazide/doxazosin/amlodipine -Patient was statin allergy at baseline History of anemia -Hemoglobin currently normal and stable GERD -Multiple allergies -Could consider Mylanta if this becomes problematic History of TIA -Continue aspirin -No current acute issues Psoriasis -Continue hydroxychloroquine KHANG -Nocturnal CPAP DVT prophylaxis -Subcu heparin -SCDs CODE STATUS -Full code Charges/Coding Visit Charges Inpatient E&M: 65482 Subs Hosp L2
[2022-03-10] MEDS: Hydroxychloroquine 200 MG Tablet PO ×2 (09:00→17:15)
[2022-03-10] MEDS: Folic Acid/Vitamin B Comp W-C 1 Capsule 1 CAP PO (09:01)
[2022-03-10] MEDS: Sodium Bicarbonate 650 MG Tablet PO ×4 (09:01→22:41)
[2022-03-10] MEDS: Pantoprazole Sodium 20 MG Tablet PO (09:01)
[2022-03-10] MEDS: traMADol 50 MG Tablet PO (09:01)
[2022-03-10] MEDS: Calcitriol 0.25 MCG Capsule PO (09:01)
[2022-03-10] MEDS: Insulin Glargine-YFGN 100 UNIT/ML Pen 11 UNIT SC ×2 (09:03→17:17)
[2022-03-10] MEDS: Isosorbide Mononitrate 60 MG Tablet PO (11:33)
[2022-03-10] MEDS: Doxazosin 1 MG Tablet 2 MG PO (11:34)
[2022-03-10] MEDS: Carvedilol 3.125 MG TABLET PO (11:34)
[2022-03-10 12:15] LABS: Bedside Glucose 109 mg/dL (74-106)
[2022-03-10 13:26] LABS: Bedside Glucose 120 mg/dL (74-106)
[2022-03-10] MEDS: Ensure Clear 120 ML Liquid PO ×3 (14:37→22:41)
[2022-03-10] MEDS: 0.9% Saline Lock 10 ML Syringe IV (16:00)
[2022-03-10] MEDS: Insulin Lispro 100 UNIT/ML INSULN.PEN SC (16:29)
[2022-03-10 16:50] LABS: Bedside Glucose 230 mg/dL (74-106)
[2022-03-10 23:30] LABS: Bedside Glucose 170 mg/dL (74-106)
[2022-03-11] MEDS: Vancomycin HCl 250 MG Capsule 500 MG PO ×4 (00:11→17:23)
[2022-03-11] MEDS: MELATONIN 3 MG TABLET PO (00:11)
[2022-03-11 06:06] LABS: Absolute Lymphocyte Count 1.45 X10^3/uL (0.83-4.51); Absolute Neutrophil Count 4.6 X10^3/uL (2.0-7.7); Basophil# 0.02 X10^3/uL; Basophil% 0.3 % (0-1); Eosinophil# 0.36 X10^3/uL; Hematocrit 26.2 % (37-47); Hemoglobin 8.7 g/dL (12.0-15.0); Lymphocyte # 1.45 X10^3/ul (0.83-4.51); Lymphocyte % 19.9 % (19-41); Mean Corp Hgb Conc 33.2 g/dL (32-36); Mean Corpuscular Hgb 32.6 pg (27.0-32.0); Mean Corpuscular Volume 98.1 fL (81-99); Mean Platelet Vol. 11.3 fl (6.2-12.0); Monocyte# 0.86 X10^3/uL; Monocyte% 11.8 % (0-10); NRBC Flagged by Analyzer 0.4 % (0-5); Neutrophil # 4.55 X10^3/uL (2.7-7.7); Neutrophil % 62.6 % (47-70); Platelet Count 158 K/mm3 (150-450); RBC Distribution Width CV 16.3 % (11.6-14.6); RBC Distribution Width SD 58.2 fl (35.1-43.9); Red Blood Count 2.67 M/mm3 (4.2-5.4); White Blood Count 7.3 K/mm3 (4.4-11.0)
[2022-03-11 06:30] VITALS: BP 113/52; PULSE 88; RESP 16; TEMP 36.4; O2SAT 98
[2022-03-11 06:43] LABS: Anion Gap 16 (5-15); BUN 45 mg/dL (7-18); BUN/Creat Ratio 3.7 RATIO (10-20); Calcium,Total 8.1 mg/dL (8.5-10.1); Chloride 102 mmol/L (98-107); EST Glomerular Filtration Rate 3 mL/min (>60); Est Glom Filt Rate - Afr Amer 4 mL/min (>60); Estimated Creatinine Clearance 3.47 ml/min; Glucose 139 mg/dL (74-106); Potassium 2.9 mmol/L (3.5-5.1); Sodium Level 138 mmol/L (136-145)
[2022-03-11] MEDS: Heparin Injection (Vial) 5,000 UNIT/ML VIAL 5000 UNIT SC ×3 (06:44→21:54)
[2022-03-11] MEDS: Ondansetron 4 MG/2 ML Vial IV (06:45)
[2022-03-11 07:15] LABS: Bedside Glucose 100 mg/dL (74-106)
[2022-03-11 08:05] VITALS: BP 117/36; PULSE 87; RESP 17; TEMP 36.9; O2SAT 99
[2022-03-11] MEDS: Pantoprazole Sodium 20 MG Tablet PO (08:11)
[2022-03-11] MEDS: Folic Acid/Vitamin B Comp W-C 1 Capsule 1 CAP PO (08:11)
[2022-03-11] MEDS: Hydroxychloroquine 200 MG Tablet PO ×2 (08:11→17:26)
[2022-03-11] MEDS: Carvedilol 3.125 MG TABLET PO (08:11)
[2022-03-11] MEDS: Sodium Bicarbonate 650 MG Tablet PO ×4 (08:11→21:54)
[2022-03-11] MEDS: Calcitriol 0.25 MCG Capsule PO (08:11)
[2022-03-11] MEDS: traMADol 50 MG Tablet PO (08:11)
[2022-03-11] MEDS: Insulin Glargine-YFGN 100 UNIT/ML Pen 11 UNIT SC ×2 (08:12→18:22)
--- NOTE | 2022-03-11 08:34 | PN.HOSP_ITS ---
Subjective Subjective Still with diarrhea. Feels dizzy when she stands up. Objective Data Objective Data Vital Signs: Vital Signs Temp Pulse Resp BP Pulse Ox O2 Del Method 36.9 C 87 17 117/36 L 99 Room Air 03/11/22 08:05 03/11/22 08:05 03/11/22 08:05 03/11/22 08:05 03/11/22 08:05 03/11/22 08:05 Oxygen Delivery Method Room Air Weight: 69.4 kg Body Mass Index (BMI) 25.6 Intake & Output: Intake and Output for Last 24 Hours 03/09/22 03/10/22 03/11/22 23:59 23:59 23:59 Intake Total 1648.67 / 1648.67 860 / 860 Output Total 0 / 0 0 / 0 Balance 1648.67 / 1648.67 860 / 860 0 / 0 Medical Nutrition Assessment Dietitian: Malnutrition Criteria Met Start: 03/09/22 11:05 Freq: Status: Active Protocol: Document 03/09/22 11:06 (Rec: 03/09/22 11:06 [id number]) Nutrition Malnutrition Evidence of Malnutrition Exists Yes Malnutrition (severe): Acute Illness/Injury Evidenced By Suboptimal Energy Intake ( Severe),Weight Loss (Severe) Clinical Problem Acute Disease or Injury Related Malnutrition Etiology severe, acute malnutrition related to inadequate energy intake, GI dysfunction Signs/Symptoms as evidenced by unintenitonal wt loss of 3.7#/2.4% 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 Will add ensure clear 120mL 4x/day w/ medpass while on clear liquid diet given evidence of acute malnutrition. Lab / Micro Data Result Diagrams: 03/11/22 05:25 03/11/22 05:25 Labs: Laboratory Results - last 24 hr 03/10/22 11:31: POC Glucose 109 H 03/10/22 12:58: POC Glucose 120 H 03/10/22 16:28: POC Glucose 230 H 03/10/22 22:55: POC Glucose 170 H 03/11/22 05:25: WBC 7.3, RBC 2.67 L, Hgb 8.7 L, Hct 26.2 L, MCV 98.1, MCH 32.6 H , MCHC 33.2, RDW Std Deviation 58.2 H, RDW Coeff of Pepe 16.3 H, Plt Count 158, MPV 11.3, Immature Gran % (Auto) 0.400, Neut % (Auto) 62.6, Lymph % (Auto) 19.9, Ector % (Auto) 11.8 H, Eos % (Auto) 5.0, Baso % (Auto) 0.3, Absolute Neuts (auto) 4.6, Absolute Lymphs (auto) 1.45, Nucleated RBC % 0.4 03/11/22 05:25: Sodium 138, Potassium 2.9 L, Chloride 102, Carbon Dioxide 20.0 L , Anion Gap 16 H, BUN 45 H, Creatinine 12.10 H*, Estim Creat Clear Calc 3.47, Est GFR (MDRD) Af Amer 4 L, Est GFR (MDRD) Non-Af 3 L, BUN/Creatinine Ratio 3.7 L, Glucose 139 H, Calcium 8.1 L 03/11/22 06:44: POC Glucose 100 Micro: Microbiology 03/08/22 23:45 Stool C. difficile GDH Antigen & Toxins - Final 03/08/22 23:45 Stool Enteric Bacteriology - Final Physical Exam Const alert and no apparent distress Resp normal respiratory effort, no retractions and no use of accessory muscles Cardio regular rate, regular rhythm, S1 normal heart sound and S2 normal heart sound GI normal to inspection, nondistended, normoactive bowel sounds and soft to p alpation Assessment & Plan Assessment/Plan (1) C. difficile colitis: PLAN: Recurrent Given recurrence despite being on PO vanc last month, Enteric pathogens negative. Infectious disease consulted: Recommend Dificid 200 mg twice daily for 10 days. Currently on PO vanc 500 Q6h Continue with current regimen. I did discuss with gastroenterology about, if needed, if fecal transplant would be feasible. For me that does not currently being performed with the pandemic. (2) Nausea and vomiting: QUALIFIERS: Vomiting type: unspecified Qualified Code(s): R11.2 - Nausea with vomiting, unspecified PLAN: Nausea/vomiting/diarrhea -We will gently hydrate with history of renal failure his patient clinically looks dry at this time -advance diet -Antiemetics (3) Malaise and fatigue: PLAN: Malaise/fatigue/general debility -PT/OT consultation -transit manager consultation for discharge assistance (4) Hypokalemia: PLAN: Ongoing despite replacement Could be due to GI losses Continue to replace and monitor Magnesium WNL at 2.2 (5) Lactic acidosis: PLAN: Lactic acidosis -I think this is likely reactive related to her decreased clearance with her impaired renal function and overall dehydrated status -CT of the abdomen pelvis is pending and once reviewed will make any adjustments needed however I really do think this is related to her decreased clearance (6) High anion gap metabolic acidosis: PLAN: AG has been chronically elevated, but this is more pronounced -Likely related to combination of lactic acidosis and starvation ketosis as patient has not eaten today. -Gentle hydration with 1 L of IV fluids--> will utilize D5 normal saline to address the starvation component -Repeat BMP in a.m. Add bicarb tablets (7) Hypotension: PLAN: ongoing, but improved. DC cardura, isosorbide, valsartan carvedilol decreased to 3.125 BID Appears improved today. (8) Anemia of chronic disease: PLAN: Patient's hemoglobin went from 12 to now 8.7. Patient's baseline hemoglobin peers to be around 8-9. Feel the changes likely due to volume contraction and was hemoconcentrated. No additional work-up is necessary at this time. PLAN: Plan Chronic conditions: End-stage renal disease on PD -Consult personal banking representative -PD HTN/HPL/chronic diastolic CHF -Continue aspirin -Continue home Coreg/valsartan/hydrochlorothiazide/doxazosin/amlodipine -Patient was statin allergy at baseline History of anemia -Hemoglobin currently normal and stable GERD -Multiple allergies -Could consider Mylanta if this becomes problematic History of TIA -Continue aspirin -No current acute issues Psoriasis -Continue hydroxychloroquine KHANG -Nocturnal CPAP DVT prophylaxis -Subcu heparin -SCDs CODE STATUS -Full code Charges/Coding Visit Charges Inpatient E&M: 26955 Subs Hosp L2
--- NOTE | 2022-03-11 09:03 | DIALYSIS ---
09:00 Pt. taken off of PD treatment. Stable, A&O x3, no complaints. Net UF 882 ml. Effluent clear, yellow, no fibrin. Dressing CDI - per patient, dressing change in evening when PD will be restarted.
[2022-03-11] MEDS: Potassium Chloride Oral Tablet 20 MEQ 40 MEQ PO ×2 (11:43→17:25)
[2022-03-11] MEDS: Insulin Lispro 100 UNIT/ML INSULN.PEN SC (11:44)
[2022-03-11 12:31] LABS: Bedside Glucose 156 mg/dL (74-106)
[2022-03-11 16:30] VITALS: BP 110/34; PULSE 83; RESP 16; TEMP 36.9; O2SAT 99
[2022-03-11 17:51] LABS: Bedside Glucose 58 mg/dL (74-106)
--- NOTE | 2022-03-11 18:03 | NURSING ---
BLOOD SUGAR 58. ASYMPTOMATIC. WAITING ON SUPPER TRAY. GUNJAN CRACKERS W/PEANUT BUTTER AND MILK GIVEN. DR MILTON AWARE, ORDERS TO STILL GIVE THE 11 U OF LONG ACTING INSULIN
--- NOTE | 2022-03-11 18:33 | NURSING ---
blood sugar rechecked, 87. supper tray is here now.
[2022-03-11 18:45] LABS: Bedside Glucose 87 mg/dL (74-106)
--- NOTE | 2022-03-11 20:37 | DIALYSIS ---
CCPD initiated using 2 bags of 1.5% delflex solutions. LUQ PD dressing changed. site benign. ointment applied. pt rebekah well.
[2022-03-11] MEDS: Mupirocin Ointment 22gm Tube 1 APPLIC TOPICAL (21:53)
[2022-03-11] MEDS: Ensure Clear 120 ML Liquid PO (21:54)
[2022-03-11 21:59] VITALS: BP 116/39; PULSE 88; RESP 16; TEMP 37.1; O2SAT 97
[2022-03-11] MEDS: Epoetin Alfa epbx 10,000 UNITS/ML 10000 UNIT SC (22:32)
[2022-03-11 23:20] LABS: Bedside Glucose 155 mg/dL (74-106)
[2022-03-12] VITALS (10 sets, daily range): BP systolic 93–143; BP diastolic 25–51; PULSE 85–160; RESP 16–18; TEMP 36.2–37.2; O2SAT 96–100
[2022-03-12] MEDS: Vancomycin HCl 250 MG Capsule 500 MG PO ×4 (00:36→18:32)
--- NOTE | 2022-03-12 04:47 | EKG12_ITS ---
Test Reason : CP Blood Pressure : / mmHG Vent. Rate : 103 BPM Atrial Rate : 103 BPM P-R Int : 130 ms QRS Dur : 110 ms QT Int : 384 ms P-R-T Axes : 049 018 130 degrees QTc Int : [address] & T wave abnormality, consider lateral ischemia Abnormal ECG When compared with ECG of 08-MAR-2022 15:57, MANUAL COMPARISON REQUIRED, DATA IS UNCONFIRMED Confirmed by CINDY BALTAZAR, BRYAN ([id number]), editorial director JAN URBAN ([id number]) on 03/13/2022 8:42:47 AM Referred By: JANICE Confirmed By:BRYAN WHITE MD
[2022-03-12 05:16] LABS: Absolute Lymphocyte Count 1.57 X10^3/uL (0.83-4.51); Absolute Neutrophil Count 5.3 X10^3/uL (2.0-7.7); Basophil# 0.02 X10^3/uL; Basophil% 0.2 % (0-1); Eosinophil# 0.43 X10^3/uL; Eosinophils% 5.1 % (0-5); Hematocrit 27.3 % (37-47); Hemoglobin 9.1 g/dL (12.0-15.0); Lymphocyte # 1.57 X10^3/ul (0.83-4.51); Lymphocyte % 18.6 % (19-41); Mean Corp Hgb Conc 33.3 g/dL (32-36); Mean Corpuscular Hgb 32.5 pg (27.0-32.0); Mean Corpuscular Volume 97.5 fL (81-99); Mean Platelet Vol. 11.5 fl (6.2-12.0); Monocyte# 1.04 X10^3/uL; Monocyte% 12.4 % (0-10); NRBC Flagged by Analyzer 0.2 % (0-5); Neutrophil # 5.32 X10^3/uL (2.7-7.7); Neutrophil % 63.2 % (47-70); Platelet Count 174 K/mm3 (150-450); RBC Distribution Width SD 55.9 fl (35.1-43.9); White Blood Count 8.4 K/mm3 (4.4-11.0)
--- NOTE | 2022-03-12 05:18 | RAD_ITS ---
STUDY: X-RAY CHEST REASON FOR EXAM: Female, 76 years old patient with shortness of breath. TECHNIQUE: Single AP portable view of the chest. COMPARISON: Chest radiograph dated February 13, 2022. FINDINGS: Cardiac monitoring leads are present. The lungs are clear and under expanded. There is no demonstrated pleural abnormality. Normal size heart. Normal mediastinum and everardo. Normal visualized pulmonary arteries. Normal visualized aortic arch and descending thoracic aorta. There are diffuse degenerative changes of the visualized thoracic spine. There are degenerative changes at the right shoulder. There is no demonstrated abnormality of the visualized soft tissue structures of the upper abdomen. RAD/Chest 1 View (Portable) IMPRESSION: No radiographic evidence of acute cardiopulmonary disease. Electronically Signed: Ailyn Harmon MD at 6:52 EST ,
[2022-03-12] MEDS: Heparin Injection (Vial) 5,000 UNIT/ML VIAL 5000 UNIT SC ×3 (05:59→21:10)
[2022-03-12 06:50] LABS: Anion Gap 15 (5-15); BUN 47 mg/dL (7-18); BUN/Creat Ratio 3.9 RATIO (10-20); Calcium,Total 8.3 mg/dL (8.5-10.1); Chloride 103 mmol/L (98-107); EST Glomerular Filtration Rate 3 mL/min (>60); Est Glom Filt Rate - Afr Amer 4 mL/min (>60); Glucose 91 mg/dL (74-106); Phosphorus 8.2 mg/dL (2.5-4.9); Potassium 3.5 mmol/L (3.5-5.1); Sodium Level 139 mmol/L (136-145)
[2022-03-12 07:25] LABS: Bedside Glucose 89 mg/dL (74-106)
--- NOTE | 2022-03-12 07:55 | NURSING ---
Dialysis nurse reports a blood pressure of 76/51. Pt had 900 cc removed and t is asymptomatic and resting in bed. Dr. Jeff pagan.
[2022-03-12] MEDS: Calcium Acetate 667 MG Capsule 1334 MG PO ×3 (08:12→16:38)
[2022-03-12] MEDS: Potassium Chloride Oral Tablet 20 MEQ 40 MEQ PO ×2 (08:12→16:39)
[2022-03-12 08:13] LABS: Troponin-I HS 501 pg/mL (3.0-54.0)
[2022-03-12] MEDS: Insulin Glargine-YFGN 100 UNIT/ML Pen 11 UNIT SC ×2 (08:13→16:49)
[2022-03-12] MEDS: Hydroxychloroquine 200 MG Tablet PO ×2 (08:19→16:38)
--- NOTE | 2022-03-12 09:16 | PCM.PN.HOSP ---
Subjective Subjective Follow-up for recurrent C. difficile infection and chest pain today while on peritoneal dialysis in the morning. Objective Data Objective Data Vital Signs: Vital Signs Temp Pulse Resp BP Pulse Ox O2 Del Method 98.3 F 97 16 93/40 L 97 Room Air 03/12/22 08:26 03/12/22 08:26 03/12/22 08:26 03/12/22 08:26 03/12/22 08:26 03/12/22 08:47 Oxygen Delivery Method Room Air Weight: 154 lb 5.177 oz Body Mass Index (BMI) 25.6 Intake & Output: Intake and Output for Last 24 Hours 03/10/22 03/11/22 03/12/22 23:59 23:59 23:59 Intake Total 860 / 860 Output Total 0 / 0 Balance 860 / 860 0 / 0 Medical Nutrition Assessment Dietitian: Malnutrition Criteria Met Start: 03/09/22 11:05 Freq: Status: Active Protocol: Document 03/09/22 11:06 (Rec: 03/09/22 11:06 [id number]) Nutrition Malnutrition Evidence of Malnutrition Exists Yes Malnutrition (severe): Acute Illness/Injury Evidenced By Suboptimal Energy Intake ( Severe),Weight Loss (Severe) Clinical Problem Acute Disease or Injury Related Malnutrition Etiology severe, acute malnutrition related to inadequate energy intake, GI dysfunction Signs/Symptoms as evidenced by unintenitonal wt loss of 3.7#/2.4% 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 Will add ensure clear 120mL 4x/day w/ medpass while on clear liquid diet given evidence of acute malnutrition. Lab / Micro Data Result Diagrams: 03/12/22 04:01 03/12/22 04:01 Labs: Laboratory Results - last 24 hr 03/11/22 11:41: POC Glucose 156 H 03/11/22 17:20: POC Glucose 58 L 03/11/22 18:19: POC Glucose 87 03/11/22 21:51: POC Glucose 155 H 03/12/22 04:01: WBC 8.4, RBC 2.80 L, Hgb 9.1 L, Hct 27.3 L, MCV 97.5, MCH 32.5 H, MCHC 33.3, RDW Std Deviation 55.9 H, RDW Coeff of Pepe 16.0 H, Plt Count 174, MPV 11.5, Immature Gran % (Auto) 0.500, Neut % (Auto) 63.2, Lymph % (Auto) 18.6 L, Creek % (Auto) 12.4 H, Eos % (Auto) 5.1 H, Baso % (Auto) 0.2, Absolute Neuts (auto) 5.3, Absolute Lymphs (auto) 1.57, Nucleated RBC % 0.2 03/12/22 04:01: Sodium 139, Potassium 3.5, Chloride 103, Carbon Dioxide 21.0, Anion Gap 15, BUN 47 H, Creatinine 12.00 H*, Estim Creat Clear Calc 3.50, Est GFR (MDRD) Af Amer 4 L, Est GFR (MDRD) Non-Af 3 L, BUN/Creatinine Ratio 3.9 L, Glucose 91, Calcium 8.3 L, Phosphorus 8.2 H 03/12/22 06:01: POC Glucose 89 03/12/22 07:47: Troponin I High Sens 501 H* Micro: Microbiology 03/08/22 23:45 Stool C. difficile GDH Antigen & Toxins - Final 03/08/22 23:45 Stool Enteric Bacteriology - Final Radiography Diagnostic Testing: Radiology Impression Chest X-Ray 03/12/22 05:18 IMPRESSION: No radiographic evidence of acute cardiopulmonary disease. Electronically Signed: Ailyn Harmon MD at 6:52 EST Reading Location ID and State: [address] [place] [address] , Service support , Physical Exam Narrative Patient complain of midsternal chest tightness that lasted about 15 minutes at the end of the peritoneal dialysis. She felt the pain went to her chin. She denies any associated shortness of breath, dizziness or lightheadedness. Her pressure is low 93/40. Was low on 03/09 but sometimes it is in 110s. Patient has been getting IV fluid boluses for hypotension. Physical exam General: Alert, Oriented x3, Cooperative HEENT: Atraumatic, PERRLA, EOMI, Normocephalic Oral: Oral mucosa moist. No Gingival or Mucosal Lesions/ Ulcerations Neck: Supple, No JVD, Negative Carotid Bruits Lungs: Air entry diminished in bilateral lung bases. No crepitation/rhonchi Cardiovascular: Regular rate, Regular Rhythm, Normal S1, Normal S2, No murmurs Abdomen: Bowel Sounds Present, Soft, Non Tender, Non-Distended. : PD catheter. No renal angle tenderness. No suprapubic tenderness. Extremities: No edema, Capillary Refill Less than 3 Seconds Skin: No rashes, No breakdown Musculoskeletal: ROM restricted, muscle strength 4+/5 at major joints of LEs. No Tenderness to Palpation of Joints or Extremities Neurological: Cranial nerves II-XII grossly intact, DTR 2+/4 and Symmetrical Psych/Mental Status: Flat affect. Assessment & Plan Assessment/Plan (1) C. difficile colitis: PLAN: Recurrent This was associated with nausea vomiting and diarrhea. Given recurrence despite being on PO vanc last month, Enteric pathogens negative. Infectious disease consulted: Recommend Dificid 200 mg twice daily for 10 days. Currently on PO vanc 500 Q6h Continue with current regimen. I did discuss with gastroenterology about, if needed, if fecal transplant would be feasible. For me that does not currently being performed with the pandemic. Nausea/vomiting/diarrhea 03/12: Was seen by ID, recommended Dificid 200 mg twice daily for 10 days (2) Hypokalemia: PLAN: Ongoing despite replacement Could be due to GI losses Continue to replace and monitor Magnesium WNL at 2.2 03/12: K3.5. (3) Hypotension: PLAN: ongoing, but improved. DC cardura, isosorbide, valsartan carvedilol decreased to 3.125 BID 03/12: BP is on lower side. Started on midodrine 5 mg 3 times daily with holding parameters if SBP more than 120 mmHg. (4) Anemia of chronic disease: PLAN: Patient's hemoglobin went from 12 to now 8.7. Patient's baseline hemoglobin peers to be around 8-9. Feel the changes likely due to volume contraction and was hemoconcentrated. No additional work-up is necessary at this time. (5) Chest pain, atypical: PLAN: Started on 03/12. It was chest tightness lasted about 15 minutes. Patient denies any history of coronary artery disease or cardiac stents. Had one-time chest pain, many years ago and does not remember details. Multiple EKGs reviewed. EKG sinus tachycardia [address]-T changes. First EKG on 03/08, NSR with LVH with repolarization abnormality. Previous other 2 EKGs on 02/13/2022 and 1 in April, were normal sinus rhythm LVH. First troponin elevated. We will cycle more enzymes. I think elevated troponin may be related with fluid shifts as chest pain started during during the end of dialysis. PLAN: Plan Chronic conditions: End-stage renal disease on PD -Consult meteorology professor -PD HTN/HPL/chronic diastolic CHF -Continue aspirin -Continue home Coreg/valsartan/hydrochlorothiazide/doxazosin/amlodipine -Patient was statin allergy at baseline History of anemia -Hemoglobin currently normal and stable GERD -Multiple allergies -Could consider Mylanta if this becomes problematic History of TIA -Continue aspirin -No current acute issues Psoriasis -Continue hydroxychloroquine KHANG -Nocturnal CPAP DVT prophylaxis -Subcu heparin -SCDs CODE STATUS -Full code Total time of the visit including total time spent in counseling or coordination of care, (more than 50% of the total time, spent in obtaining medical information from nurses and other ancillary care providers,explaining to the patient about labs, imaging, diagnosis and management of active complex medical conditions), review of ID and nephrology consult, medical record review, review of labs and imaging is 45 minutes. Charges/Coding Visit Charges Inpatient E&M: 07966 Subs Hosp L3
[2022-03-12 10:12] LABS: Troponin-I HS 516 pg/mL (3.0-54.0)
[2022-03-12] MEDS: Ensure Clear 120 ML Liquid PO (10:41)
[2022-03-12] MEDS: Pantoprazole Sodium 20 MG Tablet PO (10:41)
[2022-03-12] MEDS: Calcitriol 0.25 MCG Capsule PO (10:41)
[2022-03-12] MEDS: Sodium Bicarbonate 650 MG Tablet PO ×4 (10:42→21:12)
[2022-03-12] MEDS: Midodrine HCl 5 MG Tablet PO ×3 (10:42→21:12)
[2022-03-12] MEDS: Folic Acid/Vitamin B Comp W-C 1 Capsule 1 CAP PO (10:42)
[2022-03-12] MEDS: traMADol 50 MG Tablet PO (11:21)
[2022-03-12] MEDS: Insulin Lispro 100 UNIT/ML INSULN.PEN SC (11:22)
[2022-03-12 11:50] LABS: Bedside Glucose 200 mg/dL (74-106)
--- NOTE | 2022-03-12 12:27 | PCM.PN.REN ---
Subjective Subjective still with diarrhea from cdiff. hypotensive, lightheaded. Received iv fluid bolus. Remains on 1.5% solution for dialysis. Objective Data Objective Data Vital Signs: Vital Signs Temp Pulse Resp BP Pulse Ox O2 Del Method 98.9 F 97 18 122/32 H 97 Room Air 03/12/22 11:00 03/12/22 11:00 03/12/22 11:00 03/12/22 11:00 03/12/22 11:00 03/12/22 11:00 Oxygen Delivery Method Room Air Weight: 70 kg Body Mass Index (BMI) 25.6 Intake & Output: Intake and Output for Last 24 Hours 03/10/22 03/11/22 03/12/22 23:59 23:59 23:59 Intake Total 860 / 860 Output Total 0 / 0 Balance 860 / 860 0 / 0 Medical Nutrition Assessment Dietitian: Malnutrition Criteria Met Start: 03/09/22 11:05 Freq: Status: Active Protocol: Document 03/12/22 12:02 (Rec: 03/12/22 12:03 [id number]) Nutrition Malnutrition Evidence of Malnutrition Exists Yes Malnutrition (severe): Acute Illness/Injury Evidenced By Suboptimal Energy Intake ( Severe),Weight Loss (Severe) Clinical Problem Acute Disease or Injury Related Malnutrition Etiology severe, acute malnutrition related to inadequate energy intake, GI dysfunction Signs/Symptoms as evidenced by unintenitonal wt loss of 3.7#/2.4% 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 Lab / Micro Data Result Diagrams: 03/12/22 04:01 03/12/22 04:01 Labs: Laboratory Results - last 24 hr 03/11/22 11:41: POC Glucose 156 H 03/11/22 17:20: POC Glucose 58 L 03/11/22 18:19: POC Glucose 87 03/11/22 21:51: POC Glucose 155 H 03/12/22 04:01: WBC 8.4, RBC 2.80 L, Hgb 9.1 L, Hct 27.3 L, MCV 97.5, MCH 32.5 H, MCHC 33.3, RDW Std Deviation 55.9 H, RDW Coeff of Pepe 16.0 H, Plt Count 174, MPV 11.5, Immature Gran % (Auto) 0.500, Neut % (Auto) 63.2, Lymph % (Auto) 18.6 L, [place] % (Auto) 12.4 H, Eos % (Auto) 5.1 H, Baso % (Auto) 0.2, Absolute Neuts (auto) 5.3, Absolute Lymphs (auto) 1.57, Nucleated RBC % 0.2 03/12/22 04:01: Sodium 139, Potassium 3.5, Chloride 103, Carbon Dioxide 21.0, Anion Gap 15, BUN 47 H, Creatinine 12.00 H*, Estim Creat Clear Calc 3.50, Est GFR (MDRD) Af Amer 4 L, Est GFR (MDRD) Non-Af 3 L, BUN/Creatinine Ratio 3.9 L, Glucose 91, Calcium 8.3 L, Phosphorus 8.2 H 03/12/22 06:01: POC Glucose 89 03/12/22 07:47: Troponin I High Sens 501 H* 03/12/22 09:25: Troponin I High Sens 516 H* 03/12/22 11:20: POC Glucose 200 H Micro: Microbiology 03/08/22 23:45 Stool C. difficile GDH Antigen & Toxins - Final 03/08/22 23:45 Stool Enteric Bacteriology - Final Radiography Diagnostic Testing: Radiology Impression Chest X-Ray 03/12/22 05:18 IMPRESSION: No radiographic evidence of acute cardiopulmonary disease. Electronically Signed: Ailyn Harmon MD at 6:52 EST Reading Location ID and State: [address] [place] [address] , Service support , Physical Exam Const alert and oriented x3 Resp clear to auscultation bilaterally GI non-tender and non-distended Auscultation: normoactive bowel sounds Extremity no clubbing, cyanosis or edema Assessment & Plan Assessment/Plan (1) ESRD (end stage renal disease): PLAN: Continue with CCPD use all 1.5% solution since patient appears dehydrated with near syncope and low blood pressure readings. (2) C. difficile colitis: PLAN: Vancomycin p.o. 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 Complains of itching (7) Anemia of chronic disease: PLAN: epo 10K x1
[2022-03-12] MEDS: Ensure Plus High Protein 120 ML LIQUID PO ×3 (13:40→21:10)
[2022-03-12 13:48] LABS: Troponin-I HS 542 pg/mL (3.0-54.0)
--- NOTE | 2022-03-12 14:20 | NURSING ---
Makayla MADDEN the primary nurse notified that the tropin level is 542.
--- NOTE | 2022-03-12 15:44 | CASEMGMT ---
Social work SW met with pt and pt to discuss discharge planning. Pt reports wanting to go home. SW shared reports from yesterday appeared to suggest pt would benefit greatly from rehab at SNF but that SW would confer with therapy team this day to determine if progress had been made. SW in to check with PT, Estela. Estela shared pt did well this day and was contact guard for most exercises. Estela agreeable to could go home with [facility]. SW informed RNCM, Adia of plan. MARIELY Serna
--- NOTE | 2022-03-12 16:06 | CASEMGMT ---
CHANO CORTEZ in to pt room to discuss dc planning, pt present. Patient was provided a list of HHC providers including quality and resource use data and consistent with the patient?s preferred geographic region, medical needs, and insurance network were provided from [facility]. Pt states she has had HHC in the past but is unable to recall the name. Pt states it is written down at home. Pt would like to go with this company again. Pt to obtain name once he goes home tonight. CHANO CORTEZ to call him in the morning to find out name and referral to be made. Pt and will view list and have a 2nd and 3rd option as well. Pt and deny further needs at this time.
[2022-03-12] MEDS: Aspirin E.C. 81 MG Tablet PO (16:38)
[2022-03-12] MEDS: Ondansetron 4 MG/2 ML Vial IV (16:39)
[2022-03-12] MEDS: Carvedilol 3.125 MG TABLET PO (16:47)
[2022-03-12 17:15] LABS: Bedside Glucose 147 mg/dL (74-106)
[2022-03-12] MEDS: Mupirocin Ointment 22gm Tube 1 APPLIC TOPICAL (19:00)
[2022-03-12] MEDS: 0.9% Saline Lock 10 ML Syringe IV (21:13)
[2022-03-12 21:36] LABS: Bedside Glucose 163 mg/dL (74-106)
[2022-03-13] VITALS (12 sets, daily range): BP systolic 108–144; BP diastolic 35–76; PULSE 75–88; RESP 16–18; TEMP 36.1–37.3; O2SAT 93–100
[2022-03-13] MEDS: Vancomycin HCl 250 MG Capsule 500 MG PO ×4 (00:35→18:21)
[2022-03-13] MEDS: Heparin Injection (Vial) 5,000 UNIT/ML VIAL 5000 UNIT SC ×3 (06:34→22:07)
[2022-03-13] MEDS: Midodrine HCl 5 MG Tablet PO ×2 (06:35→16:00)
[2022-03-13 07:16] LABS: Bedside Glucose 125 mg/dL (74-106)
--- NOTE | 2022-03-13 07:54 | DIALYSIS ---
CCPD complete. Net fluid removed = 164 ml. Effluent fluid clear, yellow. No fibrin observed. LLQ PD catheter dressing dry and intact. Dressing changed last night and should be changed tonight. Patient denies pain or tenderness Report given to primary RN, Connie Martines
[2022-03-13] MEDS: Potassium Chloride Oral Tablet 20 MEQ 40 MEQ PO ×2 (07:59→16:18)
[2022-03-13] MEDS: Hydroxychloroquine 200 MG Tablet PO ×2 (07:59→16:17)
[2022-03-13] MEDS: Aspirin E.C. 81 MG Tablet PO (07:59)
[2022-03-13] MEDS: Carvedilol 3.125 MG TABLET PO ×2 (07:59→16:13)
[2022-03-13] MEDS: Calcium Acetate 667 MG Capsule 1334 MG PO ×3 (07:59→16:15)
[2022-03-13] MEDS: Insulin Glargine-YFGN 100 UNIT/ML Pen 11 UNIT SC ×2 (08:00→16:10)
--- NOTE | 2022-03-13 08:26 | CASEMGMT ---
Addendum entered by Adia Patterson 03/13/22 11:48: Received acceptance from [facility]. Pt updated. Addendum entered by Adia Patterson 03/13/22 09:07: Referral sent to [facility] via [facility] at this time. Original Note: TC to pt , he states the previous [facility] agency was [facility]. He states that would be the first choice and [facility] would be second choice and [facility] third choice.
--- NOTE | 2022-03-13 08:27 | CASEMGMT ---
Social Work SW verified AD with pt. Pt named , Marcos as HCPOA. SW notified pt this document is not on file and if pt would like [facility] to have a copy one can be brought in and provided to SW or dropped off at Medical records department. Pt voiced understanding. MARIELY Serna
[2022-03-13] MEDS: Sodium Bicarbonate 650 MG Tablet PO ×4 (10:28→22:10)
[2022-03-13] MEDS: Folic Acid/Vitamin B Comp W-C 1 Capsule 1 CAP PO (10:28)
[2022-03-13] MEDS: Calcitriol 0.25 MCG Capsule PO (10:28)
[2022-03-13] MEDS: traMADol 50 MG Tablet PO (10:28)
[2022-03-13] MEDS: Pantoprazole Sodium 20 MG Tablet PO (10:33)
[2022-03-13] MEDS: Ensure Plus High Protein 120 ML LIQUID PO ×4 (10:33→22:07)
[2022-03-13] MEDS: Insulin Lispro 100 UNIT/ML INSULN.PEN SC ×2 (11:50→16:01)
[2022-03-13 12:15] LABS: Bedside Glucose 233 mg/dL (74-106)
--- NOTE | 2022-03-13 15:24 | PCM.PN.HOSP ---
Subjective Subjective Follow-up for diarrhea. Patient is still having 2-3 loose watery bowel movement. Feels weak. Patient also looks somewhat depressed. Objective Data Objective Data Vital Signs: Vital Signs Temp Pulse Resp BP Pulse Ox O2 Del Method 99.1 F 80 18 137/49 H 100 Room Air 03/13/22 14:47 03/13/22 14:47 03/13/22 14:47 03/13/22 14:47 03/13/22 14:47 03/13/22 14:47 Oxygen Delivery Method Room Air Weight: 156 lb 12.8 oz Body Mass Index (BMI) 25.6 Intake & Output: Intake and Output for Last 24 Hours 03/11/22 03/12/22 03/13/22 23:59 23:59 23:59 Intake Total 1500 / 1500 500 / 500 Output Total 0 / 0 0 / 0 164 / 164 Balance 0 / 0 1500 / 1500 336 / 336 Medical Nutrition Assessment Dietitian: Malnutrition Criteria Met Start: 03/09/22 11:05 Freq: Status: Active Protocol: Document 03/12/22 12:02 (Rec: 03/12/22 12:03 [id number]) Nutrition Malnutrition Evidence of Malnutrition Exists Yes Malnutrition (severe): Acute Illness/Injury Evidenced By Suboptimal Energy Intake ( Severe),Weight Loss (Severe) Clinical Problem Acute Disease or Injury Related Malnutrition Etiology severe, acute malnutrition related to inadequate energy intake, GI dysfunction Signs/Symptoms as evidenced by unintenitonal wt loss of 3.7#/2.4% 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 Lab / Micro Data Result Diagrams: 03/12/22 04:01 03/12/22 04:01 Labs: Laboratory Results - last 24 hr 03/12/22 16:36: POC Glucose 147 H 03/12/22 20:57: POC Glucose 163 H 03/13/22 06:29: POC Glucose 125 H 03/13/22 11:49: POC Glucose 233 H Micro: Microbiology 03/08/22 23:45 Stool C. difficile GDH Antigen & Toxins - Final 03/08/22 23:45 Stool Enteric Bacteriology - Final Physical Exam Narrative Physical exam General: Alert, Oriented x3, Cooperative HEENT: Atraumatic, PERRLA, EOMI, Normocephalic Oral: Oral mucosa dry. No Gingival or Mucosal Lesions/ Ulcerations Neck: Supple, No JVD, Negative Carotid Bruits Lungs: Air entry diminished in bilateral lung bases. No crepitation/rhonchi Cardiovascular: Regular rate, Regular Rhythm, Normal S1, Normal S2, No murmurs Abdomen: Bowel Sounds Present, Soft, Non Tender, Non-Distended. : PD catheter. No renal angle tenderness. No suprapubic tenderness. Extremities: No edema, Capillary Refill Less than 3 Seconds Skin: No rashes, No breakdown Musculoskeletal: ROM restricted, muscle strength 4+/5 at major joints of LEs. No Tenderness to Palpation of Joints or Extremities Neurological: Cranial nerves II-XII grossly intact, DTR 2+/4 and Symmetrical Psych/Mental Status: Flat affect. Assessment & Plan Assessment/Plan (1) C. difficile colitis: PLAN: Recurrent This was associated with nausea vomiting and diarrhea. Given recurrence despite being on PO vanc last month, Enteric pathogens negative. Infectious disease consulted: Recommend Dificid 200 mg twice daily for 10 days. Currently on PO vanc 500 Q6h Continue with current regimen. I did discuss with gastroenterology about, if needed, if fecal transplant would be feasible. For me that does not currently being performed with the pandemic. Nausea/vomiting/diarrhea 03/12: Was seen by ID, recommended Dificid 200 mg twice daily for 10 days 03/13: On vancomycin. Plan for discharge tomorrow. (2) Hypokalemia: PLAN: Ongoing despite replacement Could be due to GI losses Continue to replace and monitor Magnesium WNL at 2.2 03/12: K3.5. (3) Hypotension: PLAN: ongoing, but improved. DC cardura, isosorbide, valsartan carvedilol decreased to 3.125 BID 03/12: BP is on lower side. Started on midodrine 5 mg 3 times daily with holding parameters if SBP more than 120 mmHg. 03/13: Blood pressure is 137/49. Hold midodrine. (4) Anemia of chronic disease: PLAN: Patient's hemoglobin went from 12 to now 8.7. Patient's baseline hemoglobin peers to be around 8-9. Feel the changes likely due to volume contraction and was hemoconcentrated. No additional work-up is necessary at this time. 03/13: Hemoglobin is 9.1. On baseline. (5) Chest pain, atypical: PLAN: Started on 03/12. It was chest tightness lasted about 15 minutes. Patient denies any history of coronary artery disease or cardiac stents. Had one-time chest pain, many years ago and does not remember details. Multiple EKGs reviewed. EKG sinus tachycardia [address]-T changes. First EKG on 03/08, NSR with LVH with repolarization abnormality. Previous other 2 EKGs on 02/13/2022 and 1 in April, were normal sinus rhythm LVH. First troponin elevated. We will cycle more enzymes. I think elevated troponin may be related with fluid shifts as chest pain started during during the end of dialysis. 03/13: Patient recommend outpatient nuclear stress test after she is out of contact isolation and medically controlled C. 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
[2022-03-13] MEDS: Ondansetron 4 MG/2 ML Vial IV (16:05)
[2022-03-13] MEDS: 0.9% Saline Lock 10 ML Syringe IV (16:05)
[2022-03-13 16:41] LABS: Bedside Glucose 154 mg/dL (74-106)
--- NOTE | 2022-03-13 16:52 | DIALYSIS ---
Addendum entered by Cristobal Noble 03/13/22 17:02: Report given to primary RN, Connie De La Cruz Original Note: Report from primary RN, Connie De La Cruz. Patient does not want CCPD started until later tonight. This RN set up PD cycler using prior orders and explained to patient and three times how to connect to cycler and start PD tx. Both patient and confirmed they understand HD nurse solution manager [phone]
[2022-03-13] MEDS: Mupirocin Ointment 22gm Tube 1 APPLIC TOPICAL (22:08)
[2022-03-13 22:35] LABS: Bedside Glucose 168 mg/dL (74-106)
[2022-03-14] MEDS: Vancomycin HCl 250 MG Capsule 500 MG PO ×2 (00:09→06:47)
[2022-03-14 02:00] VITALS: PULSE 73
[2022-03-14 05:30] VITALS: PULSE 84
[2022-03-14 06:11] LABS: Absolute Neutrophil Count 6.1 X10^3/uL (2.0-7.7); Basophil# 0.03 X10^3/uL; Basophil% 0.3 % (0-1); Eosinophil# 0.63 X10^3/uL; Eosinophils% 6.5 % (0-5); Hematocrit 28.1 % (37-47); Hemoglobin 9.2 g/dL (12.0-15.0); Lymphocyte % 15.6 % (19-41); Mean Corp Hgb Conc 32.7 g/dL (32-36); Mean Corpuscular Hgb 33.6 pg (27.0-32.0); Mean Corpuscular Volume 102.6 fL (81-99); Mean Platelet Vol. 12.1 fl (6.2-12.0); Monocyte# 1.24 X10^3/uL; Monocyte% 12.9 % (0-10); NRBC Flagged by Analyzer 0 % (0-5); Neutrophil # 6.14 X10^3/uL (2.7-7.7); Neutrophil % 63.9 % (47-70); POSITIVE COUNT YES; Platelet Count 178 K/mm3 (150-450); RBC Distribution Width CV 16.1 % (11.6-14.6); RBC Distribution Width SD 60.2 fl (35.1-43.9); Red Blood Count 2.74 M/mm3 (4.2-5.4); White Blood Count 9.6 K/mm3 (4.4-11.0)
[2022-03-14 06:30] VITALS: BP 127/76; PULSE 81; RESP 16; TEMP 36.8; O2SAT 98
[2022-03-14 06:32] LABS: Differential Indicated SCAN CRITERIA MET
[2022-03-14 06:35] LABS: Anisocytosis 1+; Macrocytosis 1+
[2022-03-14] MEDS: Insulin Lispro 100 UNIT/ML INSULN.PEN SC ×2 (06:47→11:31)
[2022-03-14] MEDS: Heparin Injection (Vial) 5,000 UNIT/ML VIAL 5000 UNIT SC (06:48)
[2022-03-14 07:09] LABS: Anion Gap 13 (5-15); BUN 53 mg/dL (7-18); BUN/Creat Ratio 4.6 RATIO (10-20); Calcium,Total 9.2 mg/dL (8.5-10.1); Chloride 105 mmol/L (98-107); EST Glomerular Filtration Rate 3 mL/min (>60); Est Glom Filt Rate - Afr Amer 4 mL/min (>60); Estimated Creatinine Clearance 3.65 ml/min; Glucose 192 mg/dL (74-106); Potassium 5.2 mmol/L (3.5-5.1); Sodium Level 140 mmol/L (136-145)
[2022-03-14 07:15] LABS: Bedside Glucose 162 mg/dL (74-106)
[2022-03-14] MEDS: 0.9% Saline Lock 10 ML Syringe IV (08:51)
[2022-03-14 09:22] VITALS: BP 132/39; PULSE 78; RESP 18; TEMP 2.6; TEMP 36.7
--- NOTE | 2022-03-14 09:23 | PN.RENAL_ITS ---
Subjective Subjective nausea vomiting today, diarrhea persists on oral vanco. Potassium high, BP high. Stop potassium supplement and midodrine. Denied CP, SOB, edema. Objective Data Objective Data Vital Signs: Vital Signs Temp Pulse Resp BP Pulse Ox O2 Del Method 98.2 F 81 16 127/76 H 98 Room Air 03/14/22 06:30 03/14/22 06:30 03/14/22 06:30 03/14/22 06:30 03/14/22 06:30 03/14/22 06:30 Oxygen Delivery Method Room Air Weight: 70.3 kg Body Mass Index (BMI) 25.6 Intake & Output: Intake and Output for Last 24 Hours 03/12/22 03/13/22 03/14/22 23:59 23:59 23:59 Intake Total 1500 / 1500 1050 / 1050 Output Total 0 / 0 164 / 164 0 / 0 Balance 1500 / 1500 886 / 886 0 / 0 Medical Nutrition Assessment Dietitian: Malnutrition Criteria Met Start: 03/09/22 11:05 Freq: Status: Active Protocol: Document 03/12/22 12:02 (Rec: 03/12/22 12:03 [id number]) Nutrition Malnutrition Evidence of Malnutrition Exists Yes Malnutrition (severe): Acute Illness/Injury Evidenced By Suboptimal Energy Intake ( Severe),Weight Loss (Severe) Clinical Problem Acute Disease or Injury Related Malnutrition Etiology severe, acute malnutrition related to inadequate energy intake, GI dysfunction Signs/Symptoms as evidenced by unintenitonal wt loss of 3.7#/2.4% 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 Lab / Micro Data Result Diagrams: 03/14/22 04:11 03/14/22 04:11 Labs: Laboratory Results - last 24 hr 03/13/22 11:49: POC Glucose 233 H 03/13/22 15:59: POC Glucose 154 H 03/13/22 22:10: POC Glucose 168 H 03/14/22 04:11: WBC 9.6, RBC 2.74 L, Hgb 9.2 L, Hct 28.1 L, MCV 102.6 H D, MCH 33.6 H, MCHC 32.7, RDW Std Deviation 60.2 H, RDW Coeff of Pepe 16.1 H, Plt Count 178, MPV 12.1 H, Immature Gran % (Auto) 0.800, Neut % (Auto) 63.9, Lymph % (Auto) 15.6 L, [place] % (Auto) 12.9 H, Eos % (Auto) 6.5 H, Baso % (Auto) 0.3, Absolute Neuts (auto) 6.1, Absolute Lymphs (auto) 1.50, Nucleated RBC % 0, Anisocytosis 1+, Macrocytosis 1+ 03/14/22 04:11: Sodium 140, Potassium 5.2 H, Chloride 105, Carbon Dioxide 22.0, Anion Gap 13, BUN 53 H, Creatinine 11.50 H*, Estim Creat Clear Calc 3.65, Est GFR (MDRD) Af Amer 4 L, Est GFR (MDRD) Non-Af 3 L, BUN/Creatinine Ratio 4.6 L, Glucose 192 H, Calcium 9.2 03/14/22 06:42: POC Glucose 162 H Micro: Microbiology 03/08/22 23:45 Stool C. difficile GDH Antigen & Toxins - Final 03/08/22 23:45 Stool Enteric Bacteriology - Final Physical Exam Const alert and oriented x3 Resp clear to auscultation bilaterally Cardio regular rate GI non-tender and non-distended Palpation: soft Extremity no clubbing, cyanosis or edema Assessment & Plan Assessment/Plan (1) ESRD (end stage renal disease): PLAN: Continue with CCPD use all 1.5% solution since patient appears dehydrated (2) C. difficile colitis: PLAN: still with diarrhea on Vancomycin p.o. DC to home on dificid per ID (3) Dehydration: PLAN: Use all 1.5% solution for PD (4) Hypokalemia: PLAN: now elevated. Stop potassium supplement. 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 Complains of itching (7) Anemia of chronic disease: PLAN: stable
--- NOTE | 2022-03-14 09:25 | DIALYSIS ---
PD complete, ran positive for 277ml fluid. PD catheter dressing changed, site clean and dry. No fibrin noted in clear pale yellow effluent.
--- NOTE | 2022-03-14 09:53 | DCINST_ITS ---
Discharge Instructions Diet Discharge Diet: Light diet - advance as tolerated (Soft diet, low residue for the next 2 weeks) and Low fat / Low cholesterol Dressing / Incision Call your doctor if you observe: Fever of 101 or Higher, Coldness, Increased Pain, Numbness or Tingling, Change in Color, Inability to urinate, Inability to have a bowel movement, Shortness of breath, Dizziness, Fainting spells, Swelling in the ankles, Chest pain, Prolonged hiccupping, Increased palpitations (irregular heartbeat), Calf discomfort and Uncontrolled pain Follow Up Care Test Results: Test results from this visit will be discussed in further detail at your follow- up appointment, if applicable. Discharge Plan Admission Admit Date/Time: 03/08/22 19:09 Primary Reason for Your Visit: Recurrent C. difficile. Attending Provider: Willard Wadsworth Primary Care Provider: Hamzah Wallis Consulting Providers: Ivanna Aguilar ; Ale Aguilar ; Jett Maloney ; Bebeto Lubin Instructions Additional Instructions / Restrictions: Advised to schedule pharmacological nuclear stress test after 2 weeks when pat ient is in normal baseline. Discharge Orders/Prescriptions Prescriptions: New aspirin 81 mg Tablet,Delayed Release (Dr/Ec) 81 mg PO BREAKFAST Qty: 30 0RF mupirocin 2 % Ointment 1 applic topical 2100 Qty: 22 1RF Protocol: *Topical Application Instructions APPLICATION INSTRUCTIONS: apply over exit site Rx Instructions: apply over peritoneal dialysis exit site daily with dressing changes calcium acetate(phosphat bind) 667 mg Capsule 1,334 mg PO TIDCM Qty: 90 0RF Dificid 200 mg tablet 200 mg PO Q12H Qty: 20 0RF Continued (DME) blood sugar diagnostic Strip See Rx Instructions .ROUTE .MEDSUPPLY Qty: 10 Rx Instructions: check blood glucose twice daily for type 2 DM coenzyme Q10 50 mg tablet 50 mg PO DAILY doxazosin [Cardura] 4 mg tablet 2 mg PO DAILY carvedilol 25 mg tablet 12.5 mg PO BID Rx Instructions: TAKE 1 TABLET BY MOUTH TWICE A DAY insulin glargine [Lantus Solostar U-100 Insulin] 100 unit/mL (3 mL) insulin pen 22 unit subcut BIDCM tramadol 50 mg tablet 50 mg PO DAILY hydroxychloroquine [Plaquenil] 200 mg tablet 200 mg PO BID calcitriol [Rocaltrol] 0.25 mcg capsule 0.25 mcg PO DAILY Renal Caps 1 mg capsule 1 cap PO DAILY Label Comments: TAKE 1 CAPSULE BY MOUTHuDAILYc omeprazole 20 mg capsule,delayed release(DR/EC) 20 mg PO DAILY (DME) pen needle, diabetic [BD Ultra-Fine Orig Pen Needle] 29 gauge x 1/2 needle See Rx Instructions MISCELLANEOUS Rx Instructions: As directed valsartan 160 mg tablet 160 mg PO DAILY Qty: 90 3RF Rx Instructions: Hold for SBP less than 130 mmHg (DME) disability placard See Rx Instructions .Route .MEDSUPPLY Qty: 1 0RF Rx Instructions: As directed, Length of time: 5 years (DME) OneTouch Ultra Test Strip See Rx Instructions .ROUTE .MEDSUPPLY Qty: 100 3RF Rx Instructions: use to check blood glucose twice daily as directed isosorbide mononitrate 60 mg tablet extended release 24 hr 60 mg PO LUNCH Qty: 90 1RF Changed hydralazine 100 mg tablet 50 mg PO TID Qty: 30 0RF Rx Instructions: Hold for SBP less than 130 mmHg Held Jeannette-C with Bioflavonoids 1 EACH tablet 1 each PO DAILY Hold Instructions: Hold for 2 weeks. Discontinued vancomycin 125 mg capsule 125 mg PO Q6H 10 Days Qty: 40 0RF Referrals / Follow Up: Ivanna Aguilar DO [Med Staff - Consulting] - Within 1 Month Hamzah Wallis MD [Primary Care Provider] - Within 2 Weeks Jett Maloney MD [Med Staff - Active Staff] - Within 2 Weeks (Incentive) Disposition Disposition (needs filled in before D/C Order can be placed): Home Health Service
--- NOTE | 2022-03-14 10:04 | DS.PCM_ITS ---
Providers Date of Admission: 03/08/22 Date of Discharge: 03/14/22 Primary Care Physician: Dr. Hamzah Wallis MD Consultations 03/08/22 21:51 Consult: Nephrology Routine Consulting Provider: Ivanna Aguilar Reason for Consult: ESRD on PD EMERGENT Consult: No Notified: Yes Date Notified: 03/09/22 Time Notified: 06:22 Method of Notification: Text 03/09/22 08:29 Consult: Infectious Disease Routine Consulting Provider: Jett Maloney Reason for Consult: recurrent Cdiff EMERGENT Consult: No Notified: Yes Date Notified: 03/09/22 Time Notified: 09:09 Method of Notification: Answering Service Reason For Visit: INTRACTABLE/NAUSEA/VOMITING/DIARRHEA Diagnosis Discharge Diagnosis (1) ESRD (end stage renal disease): Status: Chronic Code(s): N18.6 - End stage renal disease (2) C. difficile colitis: Status: Acute Code(s): A04.72 - Enterocolitis due to Clostridium difficile, not specified as recurrent Plan: Recurrent This was associated with nausea vomiting and diarrhea. Given recurrence despite being on PO vanc last month, Enteric pathogens negative. Infectious disease consulted: Recommend Dificid 200 mg twice daily for 10 days. Currently on PO vanc 500 Q6h Continue with current regimen. I did discuss with gastroenterology about, if needed, if fecal transplant would be feasible. For me that does not currently being performed with the pandemic. Nausea/vomiting/diarrhea 03/12: Was seen by ID, recommended Dificid 200 mg twice daily for 10 days 03/13: On vancomycin. Plan for discharge tomorrow. 03/14: Patient does not have nausea or vomiting. Patient does not have abdominal pain. Soft bowel movement. She wants to go home. Patient is discharged on Dificid as per ID recommendation. BP 122/41. Heart rate normal. No tachypnea or hypoxia. ID follow-up in 2 weeks. Advised pharmacological nuclear stress stress and outpatient after 2 weeks but less than 1 month and follow-up with PCP (3) Dehydration: Status: Acute Code(s): E86.0 - Dehydration (4) Hypokalemia: Status: Acute Code(s): E87.6 - Hypokalemia Plan: Ongoing despite replacement Could be due to GI losses Continue to replace and monitor Magnesium WNL at 2.2 03/12: K3.5. 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 Prescription given for miconazole topical local application at the exit site of peritoneal catheter. HTN/HPL/chronic diastolic CHF -Continue aspirin -Continue home Coreg/valsartan/hydrochlorothiazide/doxazosin/amlodipine -Patient was statin allergy at baseline History of anemia -Hemoglobin currently normal and stable GERD -Multiple allergies -Could consider Mylanta if this becomes problematic History of TIA -Continue aspirin -No current acute issues Psoriasis -Continue hydroxychloroquine KHANG -Nocturnal CPAP DVT prophylaxis -Subcu heparin -SCDs CODE STATUS -Full code Discharge medication reconciliation done. Discharge follow-up instructions completed. Discharge process discussed with the patient and all questions were answered to patient's satisfaction. Total time spent, exact 35 minutes on discharge meds reconciliation, exa mination, coordination of care with nurses and ancillary staff, review of imaging and blood test and discussion with the patient on follow-up instructions. Medications at Discharge Home Medications ascorbate calcium-bioflavonoid 500 mg-200 mg tablet (Jeannette-C with Bioflavonoids) 1 each PO DAILY SUPPLEMENT 05/03/20 disability placard #1 ea 05/27/20 hydroxychloroquine 200 mg tablet (Plaquenil) 200 mg PO BID arthritis 07/06/20 calcitriol 0.25 mcg capsule (Rocaltrol) 0.25 mcg PO DAILY SUPPLEMENT 07/28/20 blood sugar diagnostic #10 ea 09/30/20 blood sugar diagnostic ([employer]lyte Softwareuch Ultra Test strips) #100 ea 10/17/20 isosorbide mononitrate 60 mg tablet,extended release 24 hr 60 mg PO LUNCH heart #90 tabs 03/31/21 coenzyme Q10 50 mg tablet 50 mg PO DAILY SUPPLEMENT 05/18/21 tramadol 50 mg tablet 50 mg PO DAILY MUSCLE RELAXANT 11/30/21 omeprazole 20 mg capsule,delayed release 20 mg PO DAILY GERD 02/02/22 pen needle, diabetic 29 gauge x 1/2 (BD Ultra-Fine Original Pen Needle) 02/02/22 vitamin B complex and vitamin C no.20-folic acid 1 mg capsule (Renal Caps) 1 cap PO DAILY SUPPLEMENT 02/02/22 carvedilol 25 mg tablet 12.5 mg PO BID HEART 02/13/22 doxazosin 4 mg tablet (Cardura) 2 mg PO DAILY HEART 02/15/22 insulin glargine 100 unit/mL (3 mL) subcutaneous pen (Lantus Solostar U-100 Insulin) 22 unit subcut BIDCM DM 02/28/22 aspirin 81 mg tablet,delayed release 81 mg PO BREAKFAST #30 tabs 03/14/22 calcium acetate(phosphat bind) 667 mg capsule 1,334 mg PO TIDCM #90 caps 03/14/22 fidaxomicin 200 mg tablet (Dificid) 200 mg PO Q12H #20 tabs 03/14/22 hydralazine 100 mg tablet 50 mg PO TID HTN #30 tabs 03/14/22 mupirocin 2 % topical ointment 1 applic topical 2100 #22 grams 03/14/22 valsartan 160 mg tablet 160 mg PO DAILY heart #90 tabs 03/14/22 Physical Exam Narrative Seen and examined. Does not have abdominal pain. Does not have chest pain or pressure. Physical exam General: Alert, Oriented x3, Cooperative HEENT: Atraumatic, PERRLA, EOMI, Normocephalic Oral: Oral mucosa moist . No Gingival or Mucosal Lesions/ Ulcerations Neck: Supple, No JVD, Negative Carotid Bruits Lungs: Air entry diminished in bilateral lung bases. No crepitation/rhonchi Cardiovascular: Regular rate, Regular Rhythm, Normal S1, Normal S2, No murmurs Abdomen: Bowel Sounds Present, Soft, Non Tender, Non-Distended. : PD catheter. No renal angle tenderness. No suprapubic tenderness. Extremities: No edema, Capillary Refill Less than 3 Seconds Skin: No rashes, No breakdown Musculoskeletal: ROM restricted, muscle strength 4+/5 at major joints of LEs. No Tenderness to Palpation of Joints or Extremities Neurological: Cranial nerves II-XII grossly intact, DTR 2+/4 and Symmetrical Psych/Mental Status: Flat affect. 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 Weight / BMI Weight Weight: 154 lb 15.759 oz Body Mass Index (BMI) 25.6 ABG / Lab / Microbiology Data Result Diagrams: 03/14/22 04:11 03/14/22 04:11 Laboratory: Laboratory Results - last 24 hr 03/13/22 11:49: POC Glucose 233 H 03/13/22 15:59: POC Glucose 154 H 03/13/22 22:10: POC Glucose 168 H 03/14/22 04:11: WBC 9.6, RBC 2.74 L, Hgb 9.2 L, Hct 28.1 L, MCV 102.6 H D, MCH 33.6 H, MCHC 32.7, RDW Std Deviation 60.2 H, RDW Coeff of Pepe 16.1 H, Plt Count 178, MPV 12.1 H, Immature Gran % (Auto) 0.800, Neut % (Auto) 63.9, Lymph % (Auto) 15.6 L, Blaine % (Auto) 12.9 H, Eos % (Auto) 6.5 H, Baso % (Auto) 0.3, Absolute Neuts (auto) 6.1, Absolute Lymphs (auto) 1.50, Nucleated RBC % 0, Anisocytosis 1+, Macrocytosis 1+ 03/14/22 04:11: Sodium 140, Potassium 5.2 H, Chloride 105, Carbon Dioxide 22.0, Anion Gap 13, BUN 53 H, Creatinine 11.50 H*, Estim Creat Clear Calc 3.65, Est GFR (MDRD) Af Amer 4 L, Est GFR (MDRD) Non-Af 3 L, BUN/Creatinine Ratio 4.6 L, Glucose 192 H, Calcium 9.2 03/14/22 06:42: POC Glucose 162 H Microbiology: Microbiology 03/08/22 23:45 Stool C. difficile GDH Antigen & Toxins - Final 03/08/22 23:45 Stool Enteric Bacteriology - Final D/C Instructions Discharge Diet: Light diet - advance as tolerated (Soft diet, low residue for the next 2 weeks) and Low fat / Low cholesterol Call your doctor if you observe: Fever of 101 or Higher, Coldness, Increased Pain, Numbness or Tingling, Change in Color, Inability to urinate, Inability to have a bowel movement, Shortness of breath, Dizziness, Fainting spells, Swelling in the ankles, Chest pain, Prolonged hiccupping, Increased palpitations (irregular heartbeat), Calf discomfort and Uncontrolled pain Meaningful Use Info Meaningful Use Diagnoses (Choose all that apply): None applicable Discharge Plan Admission Admit Date/Time: 03/08/22 19:09 Primary Reason for Your Visit: Recurrent C. difficile. Attending Provider: Willard Wadsworth Primary Care Provider: Hamzah Wallis Consulting Providers: Ivanna Aguilar ; Ale Aguilar ; Jett Maloney ; Bebeto Lubin Instructions Additional Instructions / Restrictions: Advised to schedule pharmacological nuclear stress test after 2 weeks when patient is in normal baseline. Discharge Orders/Prescriptions Prescriptions: New aspirin 81 mg Tablet,Delayed Release (Dr/Ec) 81 mg PO BREAKFAST Qty: 30 0RF mupirocin 2 % Ointment 1 applic topical 2100 Qty: 22 1RF Protocol: *Topical Application Instructions APPLICATION INSTRUCTIONS: apply over exit site Rx Instructions: apply over peritoneal dialysis exit site daily with dressing changes calcium acetate(phosphat bind) 667 mg Capsule 1,334 mg PO TIDCM Qty: 90 0RF Dificid 200 mg tablet 200 mg PO Q12H Qty: 20 0RF Continued (DME) blood sugar diagnostic Strip See Rx Instructions .ROUTE .MEDSUPPLY Qty: 10 Rx Instructions: check blood glucose twice daily for type 2 DM coenzyme Q10 50 mg tablet 50 mg PO DAILY doxazosin [Cardura] 4 mg tablet 2 mg PO DAILY carvedilol 25 mg tablet 12.5 mg PO BID Rx Instructions: TAKE 1 TABLET BY MOUTH TWICE A DAY insulin glargine [Lantus Solostar U-100 Insulin] 100 unit/mL (3 mL) insulin pen 22 unit subcut BIDCM tramadol 50 mg tablet 50 mg PO DAILY hydroxychloroquine [Plaquenil] 200 mg tablet 200 mg PO BID calcitriol [Rocaltrol] 0.25 mcg capsule 0.25 mcg PO DAILY Renal Caps 1 mg capsule 1 cap PO DAILY Label Comments: TAKE 1 CAPSULE BY MOUTHuDAILYc omeprazole 20 mg capsule,delayed release(DR/EC) 20 mg PO DAILY (DME) pen needle, diabetic [BD Ultra-Fine Orig Pen Needle] 29 gauge x 1/2 needle See Rx Instructions MISCELLANEOUS Rx Instructions: As directed valsartan 160 mg tablet 160 mg PO DAILY Qty: 90 3RF Rx Instructions: Hold for SBP less than 130 mmHg (DME) disability placard See Rx Instructions .Route .MEDSUPPLY Qty: 1 0RF Rx Instructions: As directed, Length of time: 5 years (DME) OneTouch Ultra Test Strip See Rx Instructions .ROUTE .MEDSUPPLY Qty: 100 3RF Rx Instructions: use to check blood glucose twice daily as directed isosorbide mononitrate 60 mg tablet extended release 24 hr 60 mg PO LUNCH Qty: 90 1RF Changed hydralazine 100 mg tablet 50 mg PO TID Qty: 30 0RF Rx Instructions: Hold for SBP less than 130 mmHg Held Jeannette-C with Bioflavonoids 1 EACH tablet 1 each PO DAILY Hold Instructions: Hold for 2 weeks. Discontinued vancomycin 125 mg capsule 125 mg PO Q6H 10 Days Qty: 40 0RF Referrals / Follow Up: Ivanna Aguilar DO [Med Staff - Consulting] - Within 1 Month ( WILL FOLLOW UP AT [facility].) Hamzah Wallis MD [Primary Care Provider] - 03/20/22 10:30 am Jett Maloney MD [Med Staff - Active Staff] - 03/28/22 3:00 pm (Incentive. [facility] APPOINTMENT IS AT [facility]. [facility] [id number]) Disposition Disposition (needs filled in before D/C Order can be placed): Home Health Service Charges/Coding Visit Charges Inpatient E&M: 95851 Disch Hosp >30min
[2022-03-14] MEDS: Calcium Acetate 667 MG Capsule 1334 MG PO (10:34)
[2022-03-14] MEDS: Pantoprazole Sodium 20 MG Tablet PO (10:34)
[2022-03-14] MEDS: Aspirin E.C. 81 MG Tablet PO (10:34)
[2022-03-14] MEDS: Folic Acid/Vitamin B Comp W-C 1 Capsule 1 CAP PO (10:35)
[2022-03-14] MEDS: Carvedilol 3.125 MG TABLET PO (10:35)
[2022-03-14] MEDS: Hydroxychloroquine 200 MG Tablet PO (10:35)
[2022-03-14] MEDS: Insulin Glargine-YFGN 100 UNIT/ML Pen 11 UNIT SC (10:35)
[2022-03-14] MEDS: traMADol 50 MG Tablet PO (10:38)
--- NOTE | 2022-03-14 11:25 | CASEMGMT ---
Addendum entered by Adia Patterson 03/14/22 16:04: arrived to sign form on pt behalf. Faxed back to [facility] at this time. Addendum entered by Adia Patterson 03/14/22 15:50: TC to [facility] patient assistance, rep states there is an attestation form to be signed then the pt will be approved. TC to pt at home, states he will be here in 10 minutes to sign for pt. Rep faxed the document needed. Addendum entered by Adia Patterson 03/14/22 14:10: Pt assistance forms faxed to [facility] at this time. Addendum entered by Adia Patterson 03/14/22 13:57: DC Instructions sent via [employer] to [facility] at this time. Addendum entered by Adia Patterson 03/14/22 13:34: [id number] CM in to pt room to discuss cost of dificid. Pt assistance form completed with patient. Pt is aware that this will be submitted today. TC to [facility] assistance program, instructions received with fax number. Original Note: TC to [facility] Retail pharmacy, pt cost is $1554.10.
[2022-03-14 11:41] LABS: Bedside Glucose 202 mg/dL (74-106)
[2022-03-14 12:00] VITALS: BP 122/41; PULSE 88; RESP 18; TEMP 37.1; O2SAT 98
--- NOTE | 2022-03-15 09:04 | CASEMGMT ---
Addendum entered by Adia Patterson 03/15/22 11:55: Received response from hospitalist who checked with ID that dificid is not systemically absorbed so this is ok to proceed with dificid. TC to [facility] pharmacy, spoke with Nikia to make aware. Addendum entered by Adia Patterson 03/15/22 11:05: Received tc from Richi pharmacist at [facility], who states med is structurally related to the zpak which is listed as a pt allergy. Message to prescribing physician to verify if dificid should be proceeded with. Original Note: TC to [facility], pt application was approved. Fax number given for pharmacy for med to be expedited to pt home. Faxed to . Application to be mailed to address on forms. TC to pt home, spoke with , he is aware of the above and that med will be delivered to pt home either by the end of today or tomorrow. Verbalized understanding.
== END 2022-03-14 12:12 | disposition home health service (06) | DRG 371 ==
LOC: ED 19:53 → MS3 20:23
PROVIDERS: Hospitalist; Admitting Provider Internal Medicine; Emergency Provider Emergency Medicine; PCP Internal Medicine; Visit Provider Internal Medicine
DX: A04.71 Enterocolitis due to Clostridium difficile, recurrent (principal); N18.6 End stage renal disease; E43 Unspecified severe protein-calorie malnutrition; I13.2 Hypertensive heart and chronic kidney disease with heart failure and with stage 5 chronic kidney disease, or end stage renal disease; E87.20 Acidosis, unspecified; R18.8 Other ascites; I50.32 Chronic diastolic (congestive) heart failure; D63.8 Anemia in other chronic diseases classified elsewhere; E11.22 Type 2 diabetes mellitus with diabetic chronic kidney disease; E11.40 Type 2 diabetes mellitus with diabetic neuropathy, unspecified; Z79.4 Long term (current) use of insulin; Z99.2 Dependence on renal dialysis; E86.0 Dehydration; G47.33 Obstructive sleep apnea (adult) (pediatric); E87.6 Hypokalemia; K21.9 Gastro-esophageal reflux disease without esophagitis; E78.00 Pure hypercholesterolemia, unspecified; L40.9 Psoriasis, unspecified; Z82.3 Family history of stroke; Z79.82 Long term (current) use of aspirin; R53.81 Other malaise; R55 Syncope and collapse; Z86.73 Personal history of transient ischemic attack (TIA), and cerebral infarction without residual deficits
CPT/HCPCS: 36415; 71045; 74177; 80048; 80053; 82962; 83605; 83690; 83735; 84100; 84484; 85025; 87493; 87506; 90947; 93005; 97110; 97116; 97162; 97166; 97530; 97535; 99252; 99284; J7040; Q9967; A4216; G0257; G0463; J2405; Q5106

== ENCOUNTER 2022-03-31 09:53 | Inpatient (IN) | payer MEDICARE, SELFPAY ==
[2022-03-31] VITALS (11 sets, daily range): BP systolic 73–125; BP diastolic 28–63; PULSE 82–99; RESP 14–18; TEMP 36.2–36.6; O2SAT 96–100; BMI 25.5; BMI 24.5
--- NOTE | 2022-03-31 10:01 | EKG12_ITS ---
Test Reason : GENERAL WEAKNESS Blood Pressure : / mmHG Vent. Rate : 091 BPM Atrial Rate : 091 BPM P-R Int : 128 ms QRS Dur : 102 ms QT Int : 384 ms P-R-T Axes : 055 012 144 degrees QTc Int : 472 ms Normal sinus rhythm ST & T wave abnormality, consider lateral ischemia Prolonged QT Abnormal ECG Confirmed by CINDY BALTAZAR, BRYAN ([id number]), editorial manager JAN URBAN ([id number]) on 04/02/2022 9:35:45 AM Referred By: JUAN ALBERTO Confirmed By:BRYAN WHITE MD
--- NOTE | 2022-03-31 10:04 | EX.ED.DYSGE1 ---
HPI History of Present Illness Chief Complaint: Weakness Informant: patient Narrative Narrative: Patient is a 76-year-old female with complex medical history including end-stage renal disease on peritoneal dialysis, type 2 diabetes mellitus, anemia of chronic disease, chronic diastolic heart failure with preserved ejection fraction and recent admission for C. difficile enterocolitis presenting with generalized weakness and concern for dehydration. Patient was discharged from the hospital 2 weeks ago on 03/14/2022. She states she was doing better for a week but over the past week has gotten more weak and does not think she is keeping up with her fluid balance. She did do her peritoneal dialysis last night. No change in her dialysate. Only intermittently makes urine and states she does not think she has been drinking enough fluids. Has not taken her medicine for the past 2 days. Feels lightheaded like she could pass out. Denies any chest pain or shortness of breath. Denies any abdominal pain. Continues to have diarrhea anywhere between 1 to 3-4 times a day. Denies any black or blood in her stool. She takes daily aspirin and is not on any other oral anticoagulation. Has home health that comes in twice a week and they recommend she come in today due to low blood pressure and generalized weakness. [facility] Medical History (Updated 03/31/22 @ 12:[address] Nanette Marshall, ) (HFpEF) heart failure with preserved ejection fraction Acute on chronic diastolic (congestive) heart failure Ambulates with cane Anemia Anemia of chronic disease Anemia of chronic disease Bilateral edema of lower extremity Blackout C. difficile colitis C. difficile diarrhea Cardiology follow-up encounter Cataracts, bilateral Chronic diarrhea Chronic diastolic (congestive) heart failure Chronic kidney disease Chronic osteoarthritis Chronic renal failure, stage 4 (severe) Chronic renal failure, stage 5 CPAP (continuous positive airway pressure) dependence Diarrhea Dietary restriction Difficulty swallowing Diverticular disease Easy bruising ESRD (end stage renal disease) Essential (primary) hypertension Eye pressure Flatulence, eructation and gas pain Gastritis determined by endoscopy Generalized weakness GERD (gastroesophageal reflux disease) GI bleed Health care maintenance High anion gap metabolic acidosis High cholesterol History of CHF (congestive heart failure) History of diverticulosis History of echocardiogram History of edema History of pain when walking History of renal disease History of stress test HLD (hyperlipidemia) HTN (hypertension), malignant Hx of mini strokes Hyperkalemia Hyperparathyroidism Hyperphosphatemia Hypersomnolence Hypokalemia Hypokalemia Hypotension Intraocular pressure increase Left carotid bruit Leg cramps Malaise and fatigue Morbid obesity Nausea and vomiting Neuropathy Non-smoker KHANG (obstructive sleep apnea) Peritoneal dialysis catheter in place Problem with dialysis access Problem with dialysis access Pseudoaneurysm of arteriovenous dialysis fistula Psoriasis Renal artery atherosclerosis Rheumatoid arthritis Secondary pulmonary arterial hypertension Shortness of breath on exertion Syncope Systolic hypertension with cerebrovascular disease TIA (transient ischemic attack) Type 2 diabetes mellitus Type 2 diabetes mellitus treated with insulin Uncontrolled hypertension Home Medications ascorbate calcium-bioflavonoid 500 mg-200 mg tablet (Jeannette-C with Bioflavonoids) 1 each PO DAILY SUPPLEMENT 05/03/20 [History Last Taken 03/03/22] disability placard #1 ea 05/27/20 [Rx Last Taken Unknown] hydroxychloroquine 200 mg tablet (Plaquenil) 200 mg PO BID arthritis 07/06/20 [History Last Taken 2 Weeks Ago ~03/17/22] calcitriol 0.25 mcg capsule (Rocaltrol) 0.25 mcg PO DAILY SUPPLEMENT 07/28/20 [History Last Taken 1 Week Ago ~03/24/22] blood sugar diagnostic #10 ea 09/30/20 [History Last Taken Unknown] blood sugar diagnostic (ClearMomentumuch Ultra Test strips) #100 ea 10/17/20 [Rx Last Taken Unknown] isosorbide mononitrate 60 mg tablet,extended release 24 hr 60 mg PO LUNCH heart #90 tabs 03/31/21 [Rx Last Taken 1 Week Ago ~03/24/22] coenzyme Q10 50 mg tablet 50 mg PO DAILY SUPPLEMENT 05/18/21 [History Last Taken 03/06/22] tramadol 50 mg tablet 50 mg PO DAILY MUSCLE RELAXANT 11/30/21 [History Last Taken 1 Week Ago ~03/24/22] omeprazole 20 mg capsule,delayed release 20 mg PO DAILY GERD 02/02/22 [History Last Taken 1 Week Ago ~03/24/22] pen needle, diabetic 29 gauge x 1/2 (BD Ultra-Fine Original Pen Needle) 02/02/22 [History Last Taken Unknown] vitamin B complex and vitamin C no.20-folic acid 1 mg capsule (Renal Caps) 1 cap PO DAILY SUPPLEMENT 02/02/22 [History Last Taken 03/29/22] carvedilol 25 mg tablet 25 mg PO BID HEART 02/13/22 [History Last Taken 1 Week Ago ~03/24/22] doxazosin 4 mg tablet (Cardura) 4 mg PO DAILY HEART 02/15/22 [History Last Taken 1 Week Ago ~03/24/22] insulin glargine 100 unit/mL (3 mL) subcutaneous pen (Lantus Solostar U-100 Insulin) 22 unit subcut BIDCM DM 02/28/22 [History Last Taken 2 Weeks Ago ~03/17/22] aspirin 81 mg tablet,delayed release 81 mg PO BREAKFAST #30 tabs 03/14/22 [Rx Last Taken 03/30/22] calcium acetate(phosphat bind) 667 mg capsule 1,334 mg PO TIDCM #90 caps 03/14/22 [Rx Last Taken 2 Weeks Ago ~03/17/22] hydralazine 100 mg tablet 50 mg PO TID HTN #30 tabs 03/14/22 [Rx Last Taken 1 Week Ago ~03/24/22] valsartan 160 mg tablet 160 mg PO DAILY heart #90 tabs 03/14/22 [Rx Last Taken 1 Week Ago ~03/24/22] amlodipine 10 mg tablet 10 mg PO DAILY BP 03/31/22 [History Last Taken 1 Week Ago ~03/24/22] Allergy/AdvReac Type Severity Reaction Status Date / Time calcium Allergy Unknown constipatio Verified 03/31/22 10:01 n amiloride Allergy NEEDS Verified 03/31/22 10:01 FOLLOW-UP azithromycin Allergy NEEDS Verified 03/31/22 10:01 [From Zithromax Z-Rickey] FOLLOW-UP bumetanide Allergy Unknown Verified 03/31/22 10:01 chlorthalidone Allergy Unknown Verified 03/31/22 10:01 clonidine HCl [From Catapres] Allergy Rash Verified 03/31/22 10:01 diltiazem Allergy Unknown Verified 03/31/22 10:01 gemfibrozil Allergy Unknown Verified 03/31/22 10:01 lisinopril Allergy NEEDS Verified 03/31/22 10:01 FOLLOW-UP losartan [Losartan] Allergy Unknown Verified 03/31/22 10:01 minoxidil Allergy Unknown Verified 03/31/22 10:01 nifedipine Allergy Unknown Verified 03/31/22 10:01 simvastatin [From Zocor] Allergy Unknown Verified 03/31/22 10:01 triamterene [From Dyazide] Allergy Unknown Verified 03/31/22 10:01 valdecoxib [From Bextra] Allergy Unknown Verified 03/31/22 10:01 verapamil [Verapamil] Allergy Unknown Verified 03/31/22 10:01 atorvastatin AdvReac Unknown Swelling Verified 03/31/22 10:01 esomeprazole [From Nexium] AdvReac Unknown Swelling Verified 03/31/22 10:01 atorvastatin calcium AdvReac Leg Verified 03/31/22 10:01 [From Lipitor] cramps/aching celecoxib [From Celebrex] AdvReac Leg aching Verified 03/31/22 10:01 hydrochlorothiazide AdvReac Legs aching Verified 03/31/22 10:01 indapamide AdvReac Other Verified 03/31/22 10:01 insulin detemir AdvReac Unknown Verified 03/31/22 10:01 [From Levemir] lansoprazole [From Prevacid] AdvReac Legs aching Verified 03/31/22 10:01 metformin HCl AdvReac Diarrhea Verified 03/31/22 10:01 [From Glucophage] pravastatin AdvReac Legs aching Verified 03/31/22 10:01 rosuvastatin calcium AdvReac Legs aching Verified 03/31/22 10:01 [From Crestor] Family History Mother Diabetes Heart disease CVA (cerebral vascular accident) Myocardial infarction had NM in 70s Father Cancer lung, passed at 70 Brother Kidney disease of renal failure at 65. Sister Diabetes Hypertension Mother Diabetes Heart disease CVA (cerebral vascular accident) Myocardial infarction age 70s Father Cancer lung CA Sister Hypertension Diabetes Surgical History gallbladder removed History of appendectomy History of arteriovenostomy for renal dialysis (~05/2020) History of arteriovenous graft History of colonoscopy S/P breast lumpectomy surgery on finger due to infection Social History household members: spouse housing: house pets and animals: Yes pets and animals: dog(s) Smoking Status: Never smoker alcohol intake: never substance use type: does not use caffeine: Yes Type: tea Number of servings: 4 what type of physical activity do you participate in: none seatbelt use: always do you feel safe at home: Yes ROS ROS ED Constitutional Constitutional ED: Denies chills or fever(s) Eyes Eyes: Denies change in vision ENT ENT ED: Denies rhinorrhea or sore throat Cardiovascular Cardiovascular: Denies chest pain or palpitations Respiratory/Chest Respiratory/Chest: Denies cough or dyspnea Gastrointestinal Gastrointestinal: Reports diarrhea; Denies abdominal pain, melena, nausea or vomiting Genitourinary Genitourinary ED: Reports other Details: Makes minimal urine secondary to end-stage renal disease Musculoskeletal Musculoskeletal: Denies arthralgias or myalgias Integumentary Denies rash Neurologic Neurologic: Reports weakness; Denies headache(s) Hematologic/Lymphatic Hematologic/Lymphatic: Denies easy bleeding or easy bruising EXAM Physical Exam Const Vital Signs: 03/31/22 09:54 03/31/22 10:02 03/31/22 09:55 Temperature 97.9 F 97.9 F Temperature Source Oral Oral Pulse Rate 99 99 Respiratory Rate 18 16 Respiratory Effort Normal Respiratory Pattern Normal Blood Pressure 73/63 L 73/63 L Blood Pressure Mean 66 66 Pulse Ox 100 100 Oxygen Delivery Method Room Air Room Air 03/31/22 10:50 03/31/22 11:18 Temperature 97.7 F L Temperature Source Oral Pulse Rate 88 86 Respiratory Rate 14 14 Respiratory Effort Respiratory Pattern Blood Pressure 121/39 H 116/28 L Blood Pressure Mean 66 57 Pulse Ox 100 100 Oxygen Delivery Method Room Air Room Air Positive well nourished and well developed Constitutional Narrative: Generally weak appearing, no acute distress General Appearance ED: well developed HEENT Reports dry mucous membranes Negative for trauma Mouth ED: Yes dry mucous membranes Mouth: dry mucous membranes Eyes PERRL and EOMs intact bilaterally Neck supple and no JVD Chest Wall inspection of chest normal and palpation of chest normal Resp normal respiratory effort and clear to auscultation bilaterally Cardio regular rate, regular rhythm and no murmurs GI GI Narrative: Peritoneal dialysis catheter in place Auscultation: hypoactive bowel sounds Palpation: soft; Negative for tender or guarding Extremity normal to inspection Extremity Narrative: Fistula in the right upper extremity. Pulse appreciated I do not appreciate a thrill. General Extremety ED: Negative for edema General Extremity: Negative for edema Neuro oriented x3 Neuro Narrative: No focal deficits appreciated Sensorium / Orientation: alert Motor Exam: general weakness Psych mental status grossly normal Skin no rashes or lesions noted and no wounds Skin Narrative: Scattered ecchymosis on upper extremities consistent with recent IV access. MDM MDM MDM Narrative Medical decision making narrative: Prior discharge summary from admission on 03/08-03/14 independently viewed by myself.Patient was admitted for recurrence of C. difficile as well as nausea vomiting diarrhea. Infect disease was consulted and she was put on Dificid 200 mg twice a day for 10 days she currently been on vancomycin 500 mg orally. GI was consulted. Was discharged home with a blood pressure of 122/41. Was treated for acute hypokalemia thought to be secondary to ongoing GI losses. Patient is mentating however she is hypotensive. Suspect she is hypovolemic at this time secondary to GI losses. Will check electrolytes and give aliquots of 250 cc fluid boluses as patient is at high risk for fluid overload secondary to end-stage renal disease. On reevaluation after initial 250 cc bolus patient has improvement of her symptoms as well as improvement of her blood pressure. She seems to be highly fluid responsive. Lab work is consistent with likely hemoconcentration. Her hemoglobin is now 11.6 compared to 9.2 on 03/14/2022. Patient now has a mild leukocytosis 11.4 which could be secondary to C. difficile colitis. Patient has a significant hypokalemia with a potassium of 2.2. Her anion gap is elevated at 20 however patient has a chronic elevation of her anion gap and her creatinine and BUN are elevated but this is consistent with her end-stage renal disease. Patient's lactate is also elevated at 3.8. Blood cultures were obtained however I suspect patient's symptoms are secondary to hypovolemia from C. difficile and not an acute bacteremia/sepsis picture. Magnesium is checked which is normal. Patient does have an elevated phosphorus of 7.6 which is improved compared to her prior admission. Patient is started on potassium supplementation while in the emergency room. She was admitted for further correction of Leila abnormalities as well as hypotension and possibly further evaluation of her C. difficile infection/treatment plan. She does not have any diarrhea while in the emergency room. Symptomatically she is feeling improved on repeat evaluation. Lab Data Labs: Laboratory Results - last 24 hr 03/31/22 03/31/22 03/31/22 10:30 10:30 10:30 WBC 11.4 H RBC 3.51 L Hgb 11.6 L Hct 34.4 L MCV 98.0 MCH 33.0 H MCHC 33.7 RDW Std Deviation 57.1 H RDW Coeff of Pepe 15.9 H Plt Count 157 MPV 12.5 H Immature Gran % (Auto) 0.700 Neut % (Auto) 71.9 H Lymph % (Auto) 12.8 L Hopkins % (Auto) 10.9 H Eos % (Auto) 3.2 Baso % (Auto) 0.5 Absolute Neuts (auto) 8.2 H Absolute Lymphs (auto) 1.46 Nucleated RBC % 0 Sodium 138 Potassium 2.2 L* Chloride 97 L Carbon Dioxide 21.0 Anion Gap 20 H BUN 42 H Creatinine 13.30 H* Estim Creat Clear Calc 3.16 Est GFR (MDRD) Af Amer 4 L Est GFR (MDRD) Non-Af 3 L BUN/Creatinine Ratio 3.2 L Glucose 254 H Lactic Acid 3.8 H* Calcium 9.2 Phosphorus Magnesium 1.7 Total Bilirubin 0.70 AST 44 H ALT 58 H Alkaline Phosphatase 145 H Total Protein 7.0 Albumin 2.8 L Globulin 4.2 Albumin/Globulin Ratio 0.7 L 03/31/22 10:30 WBC RBC Hgb Hct MCV MCH MCHC RDW Std Deviation RDW Coeff of Pepe Plt Count MPV Immature Gran % (Auto) Neut % (Auto) Lymph % (Auto) Hopkins % (Auto) Eos % (Auto) Baso % (Auto) Absolute Neuts (auto) Absolute Lymphs (auto) Nucleated RBC % Sodium Potassium Chloride Carbon Dioxide Anion Gap BUN Creatinine Estim Creat Clear Calc Est GFR (MDRD) Af Amer Est GFR (MDRD) Non-Af BUN/Creatinine Ratio Glucose Lactic Acid Calcium Phosphorus 7.6 H Magnesium Total Bilirubin AST ALT Alkaline Phosphatase Total Protein Albumin Globulin Albumin/Globulin Ratio Rhythm Strip Rhythm Strip: Sinus Rhythm Rate: 91 Ectopy: None EKG Initial EKG: Attestation: I personally reviewed and interpreted this EKG as follows: Interpretation: Sinus Rhythm Comments: Normal sinus rhythm at a rate of 91 bpm Normal axis Prolonged QTC of 472 T wave inversions in 1, aVL and V6 Compared to prior EKG on 03/12/2022 patient has no dynamic changes and QTC is actually shorter Discharge Plan Triage Chief Complaint: Weakness ED Provider: Nanette Marshall Dx/Rx/DC Orders Clinical Impression: Acute hypokalemia, End-stage renal disease on peritoneal dialysis, Hypotension due to hypovolemia, C. difficile diarrhea, Acute dehydration Primary Care Provider: Hamzah Wallis Disposition Disposition: Acute Care Hospital [facility]
[2022-03-31 10:46] LABS: Absolute Lymphocyte Count 1.46 X10^3/uL (0.83-4.51); Absolute Neutrophil Count 8.2 X10^3/uL (2.0-7.7); Basophil# 0.06 X10^3/uL; Basophil% 0.5 % (0-1); Eosinophil# 0.36 X10^3/uL; Eosinophils% 3.2 % (0-5); Hematocrit 34.4 % (37-47); Hemoglobin 11.6 g/dL (12.0-15.0); Lymphocyte # 1.46 X10^3/ul (0.83-4.51); Lymphocyte % 12.8 % (19-41); Mean Corp Hgb Conc 33.7 g/dL (32-36); Mean Platelet Vol. 12.5 fl (6.2-12.0); Monocyte# 1.24 X10^3/uL; Monocyte% 10.9 % (0-10); NRBC Flagged by Analyzer 0 % (0-5); Neutrophil # 8.17 X10^3/uL (2.7-7.7); Neutrophil % 71.9 % (47-70); Platelet Count 157 K/mm3 (150-450); RBC Distribution Width CV 15.9 % (11.6-14.6); RBC Distribution Width SD 57.1 fl (35.1-43.9); Red Blood Count 3.51 M/mm3 (4.2-5.4); White Blood Count 11.4 K/mm3 (4.4-11.0)
[2022-03-31] MEDS: Ondansetron 4 MG/2 ML Vial IV (10:46)
[2022-03-31 11:13] LABS: ALB/GLOB Ratio 0.7 RATIO (0.9-2.4); AST(SGOT) 44 U/L (15-37); Alanine Aminotransfer ALT/SGPT 58 U/L (13-56); Albumin, Serum 2.8 g/dL (3.2-5.0); Alkaline Phosphatase 145 U/L (45-117); Anion Gap 20 (5-15); BUN 42 mg/dL (7-18); BUN/Creat Ratio 3.2 RATIO (10-20); Calcium,Total 9.2 mg/dL (8.5-10.1); Chloride 97 mmol/L (98-107); EST Glomerular Filtration Rate 3 mL/min (>60); Est Glom Filt Rate - Afr Amer 4 mL/min (>60); Estimated Creatinine Clearance 3.16 ml/min; Globulin 4.2 g/dL (2.2-4.2); Glucose 254 mg/dL (74-106); Lactic Acid 3.8 mmol/L (0.4-1.9); Magnesium 1.7 mg/dL (1.6-2.6); Potassium 2.2 mmol/L (3.5-5.1); Sodium Level 138 mmol/L (136-145)
--- NOTE | 2022-03-31 11:25 | PCM.HP.STD ---
HPI - General General Date of Admission: 03/31/22 Date of Service: 03/31/22 Chief Complaint: Generalized weakness HPI Narrative KAYLI PELAEZ, is a 76 F with past medical history signal for end-stage kidney disease on peritoneal dialysis at home, recent hospitalization for C. difficile colitis for which patient was discharged on Dificid presents to the hospital with generalized weakness. Patient states woke up on the morning of her presentation with significant generalized weakness. She did complain of feeling lightheaded. She elected to present to the emergency department where patient was found to be hypotensive with blood pressure in the mid 70s. Patient was also found to have significant electrolyte abnormalities including potassium of 2.2 correction was initiated from the emergency department. Restarted on IV fluids and admitted to monitored bed for further management [facility] Medical History (Updated 03/31/22 @ 12:[address] Marcos Zarate MD) (HFpEF) heart failure with preserved ejection fraction Acute on chronic diastolic (congestive) heart failure Ambulates with cane Anemia Anemia of chronic disease Anemia of chronic disease Bilateral edema of lower extremity Blackout C. difficile colitis C. difficile diarrhea Cardiology follow-up encounter Cataracts, bilateral Chronic diarrhea Chronic diastolic (congestive) heart failure Chronic kidney disease Chronic osteoarthritis Chronic renal failure, stage 4 (severe) Chronic renal failure, stage 5 CPAP (continuous positive airway pressure) dependence Diarrhea Dietary restriction Difficulty swallowing Diverticular disease Easy bruising ESRD (end stage renal disease) Essential (primary) hypertension Eye pressure Flatulence, eructation and gas pain Gastritis determined by endoscopy Generalized weakness GERD (gastroesophageal reflux disease) GI bleed Health care maintenance High anion gap metabolic acidosis High cholesterol History of CHF (congestive heart failure) History of diverticulosis History of echocardiogram History of edema History of pain when walking History of renal disease History of stress test HLD (hyperlipidemia) HTN (hypertension), malignant Hx of mini strokes Hyperkalemia Hyperparathyroidism Hyperphosphatemia Hypersomnolence Hypokalemia Hypokalemia Hypotension Intraocular pressure increase Left carotid bruit Leg cramps Malaise and fatigue Morbid obesity Nausea and vomiting Neuropathy Non-smoker KHANG (obstructive sleep apnea) Peritoneal dialysis catheter in place Problem with dialysis access Problem with dialysis access Pseudoaneurysm of arteriovenous dialysis fistula Psoriasis Renal artery atherosclerosis Rheumatoid arthritis Secondary pulmonary arterial hypertension Shortness of breath on exertion Syncope Systolic hypertension with cerebrovascular disease TIA (transient ischemic attack) Type 2 diabetes mellitus Type 2 diabetes mellitus treated with insulin Uncontrolled hypertension Home Medications ascorbate calcium-bioflavonoid 500 mg-200 mg tablet (Jeannette-C with Bioflavonoids) 1 each PO DAILY SUPPLEMENT 05/03/20 [History Last Taken 03/03/22] disability placard #1 ea 05/27/20 [Rx Last Taken Unknown] hydroxychloroquine 200 mg tablet (Plaquenil) 200 mg PO BID arthritis 07/06/20 [History Last Taken 2 Weeks Ago ~03/17/22] calcitriol 0.25 mcg capsule (Rocaltrol) 0.25 mcg PO DAILY SUPPLEMENT 07/28/20 [History Last Taken 1 Week Ago ~03/24/22] blood sugar diagnostic #10 ea 09/30/20 [History Last Taken Unknown] blood sugar diagnostic ([employer] Ultra Test strips) #100 ea 10/17/20 [Rx Last Taken Unknown] isosorbide mononitrate 60 mg tablet,extended release 24 hr 60 mg PO LUNCH heart #90 tabs 03/31/21 [Rx Last Taken 1 Week Ago ~03/24/22] coenzyme Q10 50 mg tablet 50 mg PO DAILY SUPPLEMENT 05/18/21 [History Last Taken 03/06/22] tramadol 50 mg tablet 50 mg PO DAILY MUSCLE RELAXANT 11/30/21 [History Last Taken 1 Week Ago ~03/24/22] omeprazole 20 mg capsule,delayed release 20 mg PO DAILY GERD 02/02/22 [History Last Taken 1 Week Ago ~03/24/22] pen needle, diabetic 29 gauge x 1/2 (BD Ultra-Fine Original Pen Needle) 02/02/22 [History Last Taken Unknown] vitamin B complex and vitamin C no.20-folic acid 1 mg capsule (Renal Caps) 1 cap PO DAILY SUPPLEMENT 02/02/22 [History Last Taken 03/29/22] carvedilol 25 mg tablet 25 mg PO BID HEART 02/13/22 [History Last Taken 1 Week Ago ~03/24/22] doxazosin 4 mg tablet (Cardura) 4 mg PO DAILY HEART 02/15/22 [History Last Taken 1 Week Ago ~03/24/22] insulin glargine 100 unit/mL (3 mL) subcutaneous pen (Lantus Solostar U-100 Insulin) 22 unit subcut BIDCM DM 02/28/22 [History Last Taken 2 Weeks Ago ~03/17/22] aspirin 81 mg tablet,delayed release 81 mg PO BREAKFAST #30 tabs 03/14/22 [Rx Last Taken 03/30/22] calcium acetate(phosphat bind) 667 mg capsule 1,334 mg PO TIDCM #90 caps 03/14/22 [Rx Last Taken 2 Weeks Ago ~03/17/22] hydralazine 100 mg tablet 50 mg PO TID HTN #30 tabs 03/14/22 [Rx Last Taken 1 Week Ago ~03/24/22] valsartan 160 mg tablet 160 mg PO DAILY heart #90 tabs 03/14/22 [Rx Last Taken 1 Week Ago ~03/24/22] amlodipine 10 mg tablet 10 mg PO DAILY BP 03/31/22 [History Last Taken 1 Week Ago ~03/24/22] Allergy/AdvReac Type Severity Reaction Status Date / Time calcium Allergy Unknown constipatio Verified 03/31/22 10:01 n amiloride Allergy NEEDS Verified 03/31/22 10:01 FOLLOW-UP azithromycin Allergy NEEDS Verified 03/31/22 10:01 [From Zithromax Z-Rickey] FOLLOW-UP bumetanide Allergy Unknown Verified 03/31/22 10:01 chlorthalidone Allergy Unknown Verified 03/31/22 10:01 clonidine HCl [From Catapres] Allergy Rash Verified 03/31/22 10:01 diltiazem Allergy Unknown Verified 03/31/22 10:01 gemfibrozil Allergy Unknown Verified 03/31/22 10:01 lisinopril Allergy NEEDS Verified 03/31/22 10:01 FOLLOW-UP losartan [Losartan] Allergy Unknown Verified 03/31/22 10:01 minoxidil Allergy Unknown Verified 03/31/22 10:01 nifedipine Allergy Unknown Verified 03/31/22 10:01 simvastatin [From Zocor] Allergy Unknown Verified 03/31/22 10:01 triamterene [From Dyazide] Allergy Unknown Verified 03/31/22 10:01 valdecoxib [From Bextra] Allergy Unknown Verified 03/31/22 10:01 verapamil [Verapamil] Allergy Unknown Verified 03/31/22 10:01 atorvastatin AdvReac Unknown Swelling Verified 03/31/22 10:01 esomeprazole [From Nexium] AdvReac Unknown Swelling Verified 03/31/22 10:01 atorvastatin calcium AdvReac Leg Verified 03/31/22 10:01 [From Lipitor] cramps/aching celecoxib [From Celebrex] AdvReac Leg aching Verified 03/31/22 10:01 hydrochlorothiazide AdvReac Legs aching Verified 03/31/22 10:01 indapamide AdvReac Other Verified 03/31/22 10:01 insulin detemir AdvReac Unknown Verified 03/31/22 10:01 [From Levemir] lansoprazole [From Prevacid] AdvReac Legs aching Verified 03/31/22 10:01 metformin HCl AdvReac Diarrhea Verified 03/31/22 10:01 [From Glucophage] pravastatin AdvReac Legs aching Verified 03/31/22 10:01 rosuvastatin calcium AdvReac Legs aching Verified 03/31/22 10:01 [From Crestor] Family History Mother Diabetes Heart disease CVA (cerebral vascular accident) Myocardial infarction had [place] in 70s Father Cancer lung, passed at 70 Brother Kidney disease of renal failure at 65. Sister Diabetes Hypertension Mother Diabetes Heart disease CVA (cerebral vascular accident) Myocardial infarction age 70s Father Cancer lung CA Sister Hypertension Diabetes Surgical History gallbladder removed History of appendectomy History of arteriovenostomy for renal dialysis (~05/2020) History of arteriovenous graft History of colonoscopy S/P breast lumpectomy surgery on finger due to infection Social History household members: spouse housing: house pets and animals: Yes pets and animals: dog(s) Smoking Status: Never smoker alcohol intake: never substance use type: does not use caffeine: Yes Type: tea Number of servings: 4 what type of physical activity do you participate in: none seatbelt use: always do you feel safe at home: Yes ROS ROS Narrative GENERAL: Generalized weakness HEENT: denies headache, sinus congestion, or drainage, dysphagia RESPIRATORY: denies cough, sputum production, shortness of breath, CARDIAC: denies chest pain, palpitations, orthopnea, PND GASTROINTESTINAL: denies abdominal pain, nausea, vomiting, melena, GENITOURINARY: denies dysuria, urgency, frequency, heamaturia EXTREMITY: denies swelling MUSCULOSKELETAL: denies current joint pain or tenderness NEUROLOGIC: denies focal numbness, weakness, tingling HEMATOLOGIC: denies easy bruising and/or hemorrhage INTEGUMENT: denies rashes PSYCHIATRIC: denies suicidal or homicidal ideation Vital Signs Vital Signs Vital Signs: 03/31/22 09:54 03/31/22 10:02 03/31/22 09:55 Temperature 97.9 F 97.9 F Temperature Source Oral Oral Pulse Rate 99 99 Respiratory Rate 18 16 Respiratory Effort Normal Respiratory Pattern Normal Blood Pressure 73/63 L 73/63 L Blood Pressure Mean 66 66 Pulse Ox 100 100 Oxygen Delivery Method Room Air Room Air 03/31/22 10:50 03/31/22 11:18 Temperature 97.7 F L Temperature Source Oral Pulse Rate 88 86 Respiratory Rate 14 14 Respiratory Effort Respiratory Pattern Blood Pressure 121/39 H 116/28 L Blood Pressure Mean 66 57 Pulse Ox 100 100 Oxygen Delivery Method Room Air Room Air Weight Weight: 67.5 kg Body Mass Index (BMI) 25.5 Physical Exam Narrative GENERAL: cooperative HEENT: Atraumatic; normocephalic EYES; Anicteric, Normal Conjunctiva NECK; supple, normal thyroid, RESPIRATORY: Diminished to auscultation CARDIOVASCULAR: Regular S1 S2, GI: soft, normoactive bowel sounds, : No Renal angle tenderness; EXTREMITIES: No edema, no clubbing, MUSCULOSKELETAL: no muscle wasting NEURO: Awake; no lateralizing signs. SKIN: No Rash PSYCH; Flat affect Results Lab / Micro Data Result Diagrams: 03/31/22 10:30 03/31/22 10:30 Labs: Laboratory Results - last 24 hr 03/31/22 10:30: WBC 11.4 H, RBC 3.51 L, Hgb 11.6 L, Hct 34.4 L, MCV 98.0, MCH 33.0 H, MCHC 33.7, RDW Std Deviation 57.1 H, RDW Coeff of Pepe 15.9 H, Plt Count 157, MPV 12.5 H, Immature Gran % (Auto) 0.700, Neut % (Auto) 71.9 H, Lymph % (Auto) 12.8 L, [place] % (Auto) 10.9 H, Eos % (Auto) 3.2, Baso % (Auto) 0.5, Absolute Neuts (auto) 8.2 H, Absolute Lymphs (auto) 1.46, Nucleated RBC % 0 03/31/22 10:30: Sodium 138, Potassium 2.2 L*, Chloride 97 L, Carbon Dioxide 21.0, Anion Gap 20 H, BUN 42 H, Creatinine 13.30 H*, Estim Creat Clear Calc 3.16, Est GFR (MDRD) Af Amer 4 L, Est GFR (MDRD) Non-Af 3 L, BUN/Creatinine Ratio 3.2 L, Glucose 254 H, Calcium 9.2, Magnesium 1.7, Total Bilirubin 0.70, AST 44 H, ALT 58 H, Alkaline Phosphatase 145 H, Total Protein 7.0, Albumin 2.8 L, Globulin 4.2, Albumin/Globulin Ratio 0.7 L 03/31/22 10:30: Lactic Acid 3.8 H* Assessment & Plan Assessment/Plan (1) Hypotension: (2) Hypokalemia: PLAN: Plan Patient is a 76-year-old lady presented with progressive generalized weakness 1. Severe symptomatic hypokalemia ? Patient has been admitted to a monitored bed, potassium corrected per protocol, subsequently ordered BMP every 4 hours to assess response to initial therapy 2. Hypotension ? Patient is on a number of antihypertensives including amlodipine, carvedilol, doxazosin, hydralazine, nitrate, as well as valsartan. Suspected offending medications held patient being resuscitated with IV fluids 3. Essential hypertension ? Patient presented with hypotension patient antihypertensives held as discussed above 4. End-stage renal disease ? 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 Aguilar for dialysis orders 5. Recent admission for C. difficile colitis ? Patient was discharged with Dificid per patient's patient has had intermittent diarrhea at home 6. Anemia - Secondary to chronic disorder monitoring H&H and transfuse if patient becomes symptomatic or hemoglobin falls below 7 7. Previous history of TIA ? Patient is on antiplatelet therapy with aspirin continue 8. GERD ? Patient is on Protonix did continue 9. Chronic congestive heart failure with preserved ejection fraction ? Currently compensated 10. Psoriasis ? Patient is on hydroxychloroquine did continue 11. Obstructive sleep apnea ? Consistent use of CPAP encouraged 12. DVT prophylaxis ? Patient is on [place] heparin Time spent in the patient's overall evaluation,decision-making process, review of diagnostic data, adjustment of management, discussion with other providers, nursing nursing and ancillary staff involved in patient's care documentation, 77 minutes Advance planning; did discuss with the patient and family regarding advanced directives as well as CODE STATUS. Did explain the various scenarios involved ( FULL CODE, DNR CCA, DNR CCA with no intubation, and DNR CC and what each meant) patient elected to remain full code with CPR and intubation if needed. Order was placed. Time spent on discussion 18 minutes. Charges/Coding Visit Charges Inpatient E&M: 83624 Init Hosp L3 Procedures Hospitalists Procedures: 96116 Advncd Care Plan 30 Min
[2022-03-31 11:36] LABS: Phosphorus 7.6 mg/dL (2.5-4.9)
[2022-03-31] MEDS: Potassium Chloride 10mEq/100mL 10 MEQ/100 ML IV.SOLN. 100 MEQ IV BOLUS ×5 (11:36→22:03)
[2022-03-31] MEDS: Potassium Chloride Oral Soln 20 MEQ/15 ML UDC PO (11:36)
--- NOTE | 2022-03-31 12:50 | CON.PCM.RE_ITS ---
Assessment & Plan Assessment/Plan (1) End-stage renal disease on peritoneal dialysis: PLAN: We will arrange CCPD tonight all 1.5% solution 2 L fill volume 5 exchanges over 10 hours (2) Acute hypokalemia: PLAN: Replace as needed (3) Acute dehydration: PLAN: IV fluids as needed (4) C. difficile diarrhea: (5) Hypotension: PLAN: IV fluids as needed hold blood pressure medication (6) Anemia in chronic kidney disease (CKD): QUALIFIERS: Chronic kidney disease stage: stage 4 (severe) Qualified Code(s): N18.4 - Chronic kidney disease, stage 4 (severe); D63.1 - A nemia in chronic kidney disease PLAN: Hemoglobin stable at 11.6 g (7) Essential (primary) hypertension: (8) Diabetes mellitus type 2, controlled, with complications: (9) Hyperphosphatemia: PLAN: Follow low phosphorus diet, phosphate binders (10) Hypoalbuminemia: PLAN: Protein supplement (11) Debility: PLAN: Physical therapy assessment for rehab placement at [facility] HPI Consult Data Date of Consult: 03/31/22 HPI Narrative Reason for Consultation: ESRD on CCPD HPI Narrative: KAYLI PLEAEZ, is a 76 F with ESRD due to diabetes and hypertension on CCPD presents to [place] [facility] for progressive weakness with frequent falls at home. She has been declining in health with persistent C. difficile diarrhea. She was recently discharged from the hospital on Dificid. Diarrhea has improved more like oatmeal according to the patient spouse. However appetite has been poor with decreased oral intake. Potassium was low at 2.2 in the emergency room. She has been receiving physical therapy twice a week at home without much improvement. Blood pressure has been low with systolic BP in the 70s and emergency received IV fluids. Her blood pressure medications have been on hold at home. [facility] Medical History (Updated 03/31/22 @ 13:[address] Ivanna Aguilar DO) (HFpEF) heart failure with preserved ejection fraction Acute on chronic diastolic (congestive) heart failure Ambulates with cane Anemia Anemia of chronic disease Anemia of chronic disease Bilateral edema of lower extremity Blackout C. difficile colitis C. difficile diarrhea Cardiology follow-up encounter Cataracts, bilateral Chronic diarrhea Chronic diastolic (congestive) heart failure Chronic kidney disease Chronic osteoarthritis Chronic renal failure, stage 4 (severe) Chronic renal failure, stage 5 CPAP (continuous positive airway pressure) dependence Diarrhea Dietary restriction Difficulty swallowing Diverticular disease Easy bruising ESRD (end stage renal disease) Essential (primary) hypertension Eye pressure Flatulence, eructation and gas pain Gastritis determined by endoscopy Generalized weakness GERD (gastroesophageal reflux disease) GI bleed Health care maintenance High anion gap metabolic acidosis High cholesterol History of CHF (congestive heart failure) History of diverticulosis History of echocardiogram History of edema History of pain when walking History of renal disease History of stress test HLD (hyperlipidemia) HTN (hypertension), malignant Hx of mini strokes Hyperkalemia Hyperparathyroidism Hyperphosphatemia Hypersomnolence Hypokalemia Hypokalemia Hypotension Intraocular pressure increase Left carotid bruit Leg cramps Malaise and fatigue Morbid obesity Nausea and vomiting Neuropathy Non-smoker KHANG (obstructive sleep apnea) Peritoneal dialysis catheter in place Problem with dialysis access Problem with dialysis access Pseudoaneurysm of arteriovenous dialysis fistula Psoriasis Renal artery atherosclerosis Rheumatoid arthritis Secondary pulmonary arterial hypertension Shortness of breath on exertion Syncope Systolic hypertension with cerebrovascular disease TIA (transient ischemic attack) Type 2 diabetes mellitus Type 2 diabetes mellitus treated with insulin Uncontrolled hypertension Home Medications ascorbate calcium-bioflavonoid 500 mg-200 mg tablet (Jeannette-C with Bioflavonoids) 1 each PO DAILY SUPPLEMENT 05/03/20 [History Last Taken 03/03/22] disability placard #1 ea 05/27/20 [Rx Last Taken Unknown] hydroxychloroquine 200 mg tablet (Plaquenil) 200 mg PO BID arthritis 07/06/20 [History Last Taken 2 Weeks Ago ~03/17/22] calcitriol 0.25 mcg capsule (Rocaltrol) 0.25 mcg PO DAILY SUPPLEMENT 07/28/20 [History Last Taken 1 Week Ago ~03/24/22] blood sugar diagnostic #10 ea 09/30/20 [History Last Taken Unknown] blood sugar diagnostic ([employer] Ultra Test strips) #100 ea 10/17/20 [Rx Last Taken Unknown] isosorbide mononitrate 60 mg tablet,extended release 24 hr 60 mg PO LUNCH heart #90 tabs 03/31/21 [Rx Last Taken 1 Week Ago ~03/24/22] coenzyme Q10 50 mg tablet 50 mg PO DAILY SUPPLEMENT 05/18/21 [History Last Taken 03/06/22] tramadol 50 mg tablet 50 mg PO DAILY MUSCLE RELAXANT 11/30/21 [History Last Taken 1 Week Ago ~03/24/22] omeprazole 20 mg capsule,delayed release 20 mg PO DAILY GERD 02/02/22 [History Last Taken 1 Week Ago ~03/24/22] pen needle, diabetic 29 gauge x 1/2 (BD Ultra-Fine Original Pen Needle) 02/02 [History Last Taken Unknown] vitamin B complex and vitamin C no.20-folic acid 1 mg capsule (Renal Caps) 1 cap PO DAILY SUPPLEMENT 02/02/22 [History Last Taken 03/29/22] carvedilol 25 mg tablet 25 mg PO BID HEART 02/13/22 [History Last Taken 1 Week Ago ~03/24/22] doxazosin 4 mg tablet (Cardura) 4 mg PO DAILY HEART 02/15/22 [History Last Taken 1 Week Ago ~03/24/22] insulin glargine 100 unit/mL (3 mL) subcutaneous pen (Lantus Solostar U-100 Insulin) 22 unit subcut BIDCM DM 02/28/22 [History Last Taken 2 Weeks Ago ~03/17/22] aspirin 81 mg tablet,delayed release 81 mg PO BREAKFAST #30 tabs 03/14/22 [Rx Last Taken 03/30/22] calcium acetate(phosphat bind) 667 mg capsule 1,334 mg PO TIDCM #90 caps 03/14/22 [Rx Last Taken 2 Weeks Ago ~03/17/22] hydralazine 100 mg tablet 50 mg PO TID HTN #30 tabs 03/14/22 [Rx Last Taken 1 Week Ago ~03/24/22] valsartan 160 mg tablet 160 mg PO DAILY heart #90 tabs 03/14/22 [Rx Last Taken 1 Week Ago ~03/24/22] amlodipine 10 mg tablet 10 mg PO DAILY BP 03/31/22 [History Last Taken 1 Week Ago ~03/24/22] Allergy/AdvReac Type Severity Reaction Status Date / Time calcium Allergy Unknown constipatio Verified 03/31/22 10:01 n amiloride Allergy NEEDS Verified 03/31/22 10:01 FOLLOW-UP azithromycin Allergy NEEDS Verified 03/31/22 10:01 [From Zithromax Z-Rickey] FOLLOW-UP bumetanide Allergy Unknown Verified 03/31/22 10:01 chlorthalidone Allergy Unknown Verified 03/31/22 10:01 clonidine HCl [From Catapres] Allergy Rash Verified 03/31/22 10:01 diltiazem Allergy Unknown Verified 03/31/22 10:01 gemfibrozil Allergy Unknown Verified 03/31/22 10:01 lisinopril Allergy NEEDS Verified 03/31/22 10:01 FOLLOW-UP losartan [Losartan] Allergy Unknown Verified 03/31/22 10:01 minoxidil Allergy Unknown Verified 03/31/22 10:01 nifedipine Allergy Unknown Verified 03/31/22 10:01 simvastatin [From Zocor] Allergy Unknown Verified 03/31/22 10:01 triamterene [From Dyazide] Allergy Unknown Verified 03/31/22 10:01 valdecoxib [From Bextra] Allergy Unknown Verified 03/31/22 10:01 verapamil [Verapamil] Allergy Unknown Verified 03/31/22 10:01 atorvastatin AdvReac Unknown Swelling Verified 03/31/22 10:01 esomeprazole [From Nexium] AdvReac Unknown Swelling Verified 03/31/22 10:01 atorvastatin calcium AdvReac Leg Verified 03/31/22 10:01 [From Lipitor] cramps/aching celecoxib [From Celebrex] AdvReac Leg aching Verified 03/31/22 10:01 hydrochlorothiazide AdvReac Legs aching Verified 03/31/22 10:01 indapamide AdvReac Other Verified 03/31/22 10:01 insulin detemir AdvReac Unknown Verified 03/31/22 10:01 [From Levemir] lansoprazole [From Prevacid] AdvReac Legs aching Verified 03/31/22 10:01 metformin HCl AdvReac Diarrhea Verified 03/31/22 10:01 [From Glucophage] pravastatin AdvReac Legs aching Verified 03/31/22 10:01 rosuvastatin calcium AdvReac Legs aching Verified 03/31/22 10:01 [From Crestor] Family History Mother Diabetes Heart disease CVA (cerebral vascular accident) Myocardial infarction had [place] in 70s Father Cancer lung, passed at 70 Brother Kidney disease of renal failure at 65. Sister Diabetes Hypertension Mother Diabetes Heart disease CVA (cerebral vascular accident) Myocardial infarction age 70s Father Cancer lung CA Sister Hypertension Diabetes Surgical History gallbladder removed History of appendectomy History of arteriovenostomy for renal dialysis (~05/2020) History of arteriovenous graft History of colonoscopy S/P breast lumpectomy surgery on finger due to infection Social History household members: spouse housing: house pets and animals: Yes pets and animals: dog(s) Smoking Status: Never smoker alcohol intake: never substance use type: does not use caffeine: Yes Type: tea Number of servings: 4 what type of physical activity do you participate in: none seatbelt use: always do you feel safe at home: Yes ROS Constitutional Constitutional: Reports weakness; Denies chills or fever(s) Eyes Eyes: Denies loss of vision ENT HEENT: Denies nasal congestion Cardiovascular Cardiovascular: Denies leg edema Respiratory/Chest Respiratory/Chest: Denies dry cough or dyspnea on exertion Gastrointestinal Gastrointestinal: Reports anorexia and nausea; Denies abdominal pain or diarrhea Genitourinary Genitourinary: Denies change in urinary stream Neurologic Neurologic: Reports frequent falls, weakness and other Details: Lightheadedness ; Denies syncope Psychiatric Psychiatric: Reports depression; Denies anxiety or confusion Hematologic/Lymphatic Hematologic/Lymphatic: Reports anemia Physical Exam Const alert and oriented x3 General Appearance: frail Orientation / Consciousness: Negative for confused Nutritional Appearance: cachectic and thin Eyes EOMs intact bilaterally Resp clear to auscultation bilaterally Cardio regular rate GI non-tender and non-distended Auscultation: normoactive bowel sounds Palpation: soft Extremity no clubbing, cyanosis or edema Extremity Narrative: AV fistula no thrill or bruit right upper arm Neuro moves all extremities Neuro Narrative: Generalized weakness Psych cooperative Lab / Micro Data Result Diagrams: 03/31/22 10:30 03/31/22 10:30 Labs: Laboratory Results - last 24 hr 03/31/22 10:30: WBC 11.4 H, RBC 3.51 L, Hgb 11.6 L, Hct 34.4 L, MCV 98.0, MCH 33.0 H, MCHC 33.7, RDW Std Deviation 57.1 H, RDW Coeff of Pepe 15.9 H, Plt Count 157, MPV 12.5 H, Immature Gran % (Auto) 0.700, Neut % (Auto) 71.9 H, Lymph % (Auto) 12.8 L, [place] % (Auto) 10.9 H, Eos % (Auto) 3.2, Baso % (Auto) 0.5, Absolute Neuts (auto) 8.2 H, Absolute Lymphs (auto) 1.46, Nucleated RBC % 0 03/31/22 10:30: Sodium 138, Potassium 2.2 L*, Chloride 97 L, Carbon Dioxide 21.0 , Anion Gap 20 H, BUN 42 H, Creatinine 13.30 H*, Estim Creat Clear Calc 3.16, Est GFR (MDRD) Af Amer 4 L, Est GFR (MDRD) Non-Af 3 L, BUN/Creatinine Ratio 3.2 L, Glucose 254 H, Calcium 9.2, Magnesium 1.7, Total Bilirubin 0.70, AST 44 H, ALT 58 H, Alkaline Phosphatase 145 H, Total Protein 7.0, Albumin 2.8 L, Globulin 4.2, Albumin/Globulin Ratio 0.7 L 03/31/22 10:30: Lactic Acid 3.8 H* 03/31/22 10:30: Phosphorus 7.6 H Rhythm Strip Rhythm Strip: Sinus Rhythm Rate: 91 Ectopy: None
[2022-03-31 14:38] LABS: Reflex Lactate? Y
[2022-03-31 15:41] LABS: Anion Gap 16 (5-15); BUN 41 mg/dL (7-18); BUN/Creat Ratio 3.2 RATIO (10-20); Calcium,Total 8.7 mg/dL (8.5-10.1); Chloride 102 mmol/L (98-107); EST Glomerular Filtration Rate 3 mL/min (>60); Est Glom Filt Rate - Afr Amer 4 mL/min (>60); Estimated Creatinine Clearance 3.25 ml/min; Glucose 176 mg/dL (74-106); Lactic Acid 3.1 mmol/L (0.4-1.9); Potassium 2.7 mmol/L (3.5-5.1); Sodium Level 139 mmol/L (136-145)
[2022-03-31] MEDS: Calcium Acetate 667 MG Capsule 1334 MG PO (17:40)
[2022-03-31] MEDS: Hydroxychloroquine 200 MG Tablet PO (17:40)
[2022-03-31] MEDS: Potassium Chloride Oral Tablet 20 MEQ 40 MEQ PO (17:40)
[2022-03-31] MEDS: Insulin Glargine-YFGN 100 UNIT/ML Pen 22 UNIT SC (17:42)
[2022-03-31] MEDS: Insulin Lispro 100 UNIT/ML INSULN.PEN SC ×2 (17:42→21:29)
[2022-03-31] MEDS: 0.9% Saline Lock 10 ML Syringe IV (17:44)
[2022-03-31 18:11] LABS: Bedside Glucose 225 mg/dL (74-106)
--- NOTE | 2022-03-31 18:45 | DIALYSIS ---
CCPD initiated using aseptic technique. Using Delflex 1.5% Initial drainage = 104 ml. Effluent fluid clear. No fibrin observed. LLQ PD catheter dressing changed per protocol. Site benign. Patient denies pain or tenderness Report given to primary RN, Diana Sylvester
[2022-03-31 19:23] LABS: Anion Gap 18 (5-15); BUN 44 mg/dL (7-18); BUN/Creat Ratio 3.3 RATIO (10-20); Calcium,Total 8.2 mg/dL (8.5-10.1); Chloride 99 mmol/L (98-107); EST Glomerular Filtration Rate 3 mL/min (>60); Est Glom Filt Rate - Afr Amer 4 mL/min (>60); Estimated Creatinine Clearance 3.18 ml/min; Glucose 216 mg/dL (74-106); Potassium 2.4 mmol/L (3.5-5.1); Sodium Level 138 mmol/L (136-145)
[2022-03-31] MEDS: traMADol 50 MG Tablet PO (20:20)
[2022-03-31] MEDS: Heparin Injection (Vial) 5,000 UNIT/ML VIAL 5000 UNIT SC (21:26)
[2022-03-31 23:00] LABS: Bedside Glucose 204 mg/dL (74-106)
[2022-03-31] MEDS: Potassium Chloride 10mEq/100mL 10 MEQ/100 ML IV.SOLN. 75 MEQ IV BOLUS (23:38)
--- NOTE | 2022-03-31 23:38 | NURSING ---
IV potassium administered at 75ml/hr d/t pt unable to tolerate burning sensation at 100 ml/hr.
[2022-04-01] VITALS (10 sets, daily range): BP systolic 90–121; BP diastolic 39–66; PULSE 89–101; RESP 16–18; TEMP 36.5–36.9; O2SAT 95–100
[2022-04-01 02:35] LABS: BUN 36 mg/dL (7-18); Estimated Creatinine Clearance 3.53 ml/min; Glucose 114 mg/dL (74-106)
[2022-04-01 02:36] LABS: Anion Gap 14 (5-15); Calcium,Total 8.8 mg/dL (8.5-10.1); Chloride 102 mmol/L (98-107); EST Glomerular Filtration Rate 3 mL/min (>60); Est Glom Filt Rate - Afr Amer 4 mL/min (>60); Potassium 2.8 mmol/L (3.5-5.1); Sodium Level 138 mmol/L (136-145)
[2022-04-01] MEDS: Potassium Chloride Oral Tablet 20 MEQ 40 MEQ PO (03:17)
[2022-04-01 06:36] LABS: Absolute Lymphocyte Count 1.72 X10^3/uL (0.83-4.51); Absolute Neutrophil Count 7.1 X10^3/uL (2.0-7.7); Basophil# 0.05 X10^3/uL; Basophil% 0.5 % (0-1); Eosinophil# 0.57 X10^3/uL; Eosinophils% 5.2 % (0-5); Hematocrit 30.1 % (37-47); Hemoglobin 10.1 g/dL (12.0-15.0); Lymphocyte # 1.72 X10^3/ul (0.83-4.51); Lymphocyte % 15.8 % (19-41); Mean Corp Hgb Conc 33.6 g/dL (32-36); Mean Corpuscular Hgb 32.8 pg (27.0-32.0); Mean Corpuscular Volume 97.7 fL (81-99); Mean Platelet Vol. 11.6 fl (6.2-12.0); Monocyte# 1.37 X10^3/uL; Monocyte% 12.5 % (0-10); NRBC Flagged by Analyzer 0 % (0-5); Neutrophil # 7.12 X10^3/uL (2.7-7.7); Neutrophil % 65.2 % (47-70); Platelet Count 142 K/mm3 (150-450); RBC Distribution Width CV 15.8 % (11.6-14.6); RBC Distribution Width SD 55.9 fl (35.1-43.9); Red Blood Count 3.08 M/mm3 (4.2-5.4); White Blood Count 10.9 K/mm3 (4.4-11.0)
[2022-04-01 07:26] LABS: Anion Gap 16 (5-15); BUN 38 mg/dL (7-18); BUN/Creat Ratio 3.2 RATIO (10-20); Calcium,Total 8.9 mg/dL (8.5-10.1); Chloride 100 mmol/L (98-107); EST Glomerular Filtration Rate 3 mL/min (>60); Est Glom Filt Rate - Afr Amer 4 mL/min (>60); Estimated Creatinine Clearance 3.56 ml/min; Glucose 170 mg/dL (74-106); Magnesium 1.4 mg/dL (1.6-2.6); Phosphorus 5.8 mg/dL (2.5-4.9); Potassium 3.1 mmol/L (3.5-5.1); Sodium Level 135 mmol/L (136-145)
[2022-04-01] MEDS: Insulin Lispro 100 UNIT/ML INSULN.PEN SC ×2 (07:36→21:19)
[2022-04-01 07:51] LABS: Bedside Glucose 179 mg/dL (74-106)
[2022-04-01] MEDS: Calcium Acetate 667 MG Capsule 1334 MG PO ×3 (08:33→17:09)
[2022-04-01] MEDS: Pantoprazole Sodium 20 MG Tablet PO (08:33)
[2022-04-01] MEDS: Aspirin E.C. 81 MG Tablet PO (08:33)
[2022-04-01] MEDS: Hydroxychloroquine 200 MG Tablet PO ×2 (08:33→17:09)
[2022-04-01] MEDS: Folic Acid/Vitamin B Comp W-C 1 Capsule 1 CAP PO (08:33)
[2022-04-01] MEDS: Insulin Glargine-YFGN 100 UNIT/ML Pen 22 UNIT SC ×2 (08:34→17:09)
[2022-04-01] MEDS: Calcitriol 0.25 MCG Capsule PO (09:29)
[2022-04-01] MEDS: traMADol 50 MG Tablet PO (09:29)
[2022-04-01] MEDS: Heparin Injection (Vial) 5,000 UNIT/ML VIAL 5000 UNIT SC ×2 (09:30→21:12)
[2022-04-01] MEDS: Potassium Chloride 10mEq/100mL 10 MEQ/100 ML IV.SOLN. 100 MEQ IV BOLUS ×4 (09:30→12:58)
[2022-04-01] MEDS: Magnesium Sulfate 4gm/100mL 4 GM/100 ML IV.SOLN. IV (09:30)
[2022-04-01] MEDS: 0.9% Saline Lock 10 ML Syringe IV (09:40)
[2022-04-01] MEDS: Ondansetron 4 MG/2 ML Vial IV (09:40)
--- NOTE | 2022-04-01 11:09 | PN.HOSP_ITS ---
Subjective Subjective Patient was admitted with progressive generalized weakness found to be hypokalemic and hypotensive. Potassium being replaced blood pressure stable off her numerous antihypertensives Objective Data Objective Data Vital Signs: Vital Signs Temp Pulse Resp BP Pulse Ox O2 Del Method FiO2 97.8 F 98 17 118/55 L 100 Room Air 100 04/01/22 08:29 04/01/22 08:29 04/01/22 08:29 04/01/22 08:29 04/01/22 08:29 04/01/22 08:29 03/31/22 18:30 Oxygen Delivery Method Room Air Weight: 69.1 kg Body Mass Index (BMI) 24.5 Intake & Output: Intake and Output for Last 24 Hours 03/30/22 03/31/22 04/01/22 23:59 23:59 23:59 Intake Total 1190 / 1430 560 / 560 Output Total 0 / 0 Balance 1190 / 1430 560 / 560 Lab / Micro Data Result Diagrams: 04/01/22 06:05 04/01/22 06:05 Labs: Laboratory Results - last 24 hr 03/31/22 10:30: Sodium 138, Potassium 2.2 L*, Chloride 97 L, Carbon Dioxide 21.0, Anion Gap 20 H, BUN 42 H, Creatinine 13.30 H*, Estim Creat Clear Calc 3.16, Est GFR (MDRD) Af Amer 4 L, Est GFR (MDRD) Non-Af 3 L, BUN/Creatinine Ratio 3.2 L, Glucose 254 H, Calcium 9.2, Magnesium 1.7, Total Bilirubin 0.70, AST 44 H, ALT 58 H, Alkaline Phosphatase 145 H, Total Protein 7.0, Albumin 2.8 L , Globulin 4.2, Albumin/Globulin Ratio 0.7 L 03/31/22 10:30: Lactic Acid 3.8 H* 03/31/22 10:30: Phosphorus 7.6 H 03/31/22 14:45: Sodium 139, Potassium 2.7 L*, Chloride 102, Carbon Dioxide 21.0, Anion Gap 16 H, BUN 41 H, Creatinine 12.90 H*, Estim Creat Clear Calc 3.25, Est GFR (MDRD) Af Amer 4 L, Est GFR (MDRD) Non-Af 3 L, BUN/Creatinine Ratio 3.2 L, Glucose 176 H, Calcium 8.7 03/31/22 14:45: Lactic Acid 3.1 H* 03/31/22 17:36: POC Glucose 225 H 03/31/22 18:43: Sodium 138, Potassium 2.4 L*, Chloride 99, Carbon Dioxide 21.0, Anion Gap 18 H, BUN 44 H, Creatinine 13.20 H*, Estim Creat Clear Calc 3.18, Est GFR (MDRD) Af Amer 4 L, Est GFR (MDRD) Non-Af 3 L, BUN/Creatinine Ratio 3.3 L, Glucose 216 H, Calcium 8.2 L 03/31/22 21:28: POC Glucose 204 H 04/01/22 02:05: Sodium 138, Potassium 2.8 L, Chloride 102, Carbon Dioxide 22.0, Anion Gap 14, BUN 36 H, Creatinine 11.90 H*, Estim Creat Clear Calc 3.53, Est GFR (MDRD) Af Amer 4 L, Est GFR (MDRD) Non-Af 3 L, BUN/Creatinine Ratio 3.0 L, Glucose 114 H, Calcium 8.8 04/01/22 06:05: WBC 10.9, RBC 3.08 L, Hgb 10.1 L, Hct 30.1 L, MCV 97.7, MCH 32.8 H, MCHC 33.6, RDW Std Deviation 55.9 H, RDW Coeff of [place]pe 15.8 H, Plt Count 142 L , MPV 11.6, Immature Gran % (Auto) 0.800, Neut % (Auto) 65.2, Lymph % (Auto) 15.8 L, [place] % (Auto) 12.5 H, Eos % (Auto) 5.2 H, Baso % (Auto) 0.5, Absolute Neuts (auto) 7.1, Absolute Lymphs (auto) 1.72, Nucleated RBC % 0 04/01/22 06:05: Sodium 135 L, Potassium 3.1 L, Chloride 100, Carbon Dioxide 19.0 L, Anion Gap 16 H, BUN 38 H, Creatinine 11.80 H*, Estim Creat Clear Calc 3.56, Est GFR (MDRD) Af Amer 4 L, Est GFR (MDRD) Non-Af 3 L, BUN/Creatinine Ratio 3.2 L, Glucose 170 H, Calcium 8.9, Phosphorus 5.8 H, Magnesium 1.4 L 04/01/22 07:29: POC Glucose 179 H Rhythm Strip Rhythm Strip: Sinus Rhythm Rate: 91 Ectopy: None Physical Exam Narrative GENERAL: cooperative HEENT: Atraumatic; normocephalic EYES; Anicteric, Normal Conjunctiva NECK; supple, normal thyroid, RESPIRATORY: Diminished to auscultation CARDIOVASCULAR: Regular S1 S2, GI: soft, normoactive bowel sounds, : No Renal angle tenderness; EXTREMITIES: No edema, no clubbing, MUSCULOSKELETAL: no muscle wasting NEURO: Awake; no lateralizing signs. SKIN: No Rash PSYCH; Flat affect Assessment & Plan Assessment/Plan (1) Hypotension: (2) Hypokalemia: PLAN: Plan Patient is a 76-year-old lady presented with progressive generalized weakness 1. Severe symptomatic hypokalemia ? Patient has been admitted to a monitored bed, potassium corrected per protocol, subsequently ordered BMP every 4 hours to assess response to initial therapy 04/01/2022. Potassium up to 3.1 following aggressive placement.. Additional potassium given repeat labs ordered 2. Hypotension ? Patient is on a number of antihypertensives including amlodipine, carvedilol, doxazosin, hydralazine, nitrate, as well as valsartan. Suspected offending medications held patient being resuscitated with IV fluids ?04/01/2022; patient blood pressure stable off her current antihypertensives. 3. Essential hypertension ? Patient presented with hypotension patient antihypertensives held as discussed above ? 04/01/2022. Patient of her antihypertensives blood pressure remains relatively stable. Patient will need significant review of her antihypertensives on disch arge. This has been discussed with patient 4. End-stage renal disease ? Patient is on peritoneal dialysis consult has been placed to patient's information security associate Dr. Aguilar for dialysis orders 5. Recent admission for C. difficile colitis ? Patient was discharged with Dificid per patient's patient has had intermittent diarrhea at home 6. Anemia - Secondary to chronic disorder monitoring H&H and transfuse if patient becomes symptomatic or hemoglobin falls below 7 7. Previous history of TIA ? Patient is on antiplatelet therapy with aspirin continue 8. GERD ? Patient is on Protonix did continue 9. Chronic congestive heart failure with preserved ejection fraction ? Currently compensated 10. Psoriasis ? Patient is on hydroxychloroquine did continue 11. Obstructive sleep apnea ? Consistent use of CPAP encouraged 12. DVT prophylaxis ? Patient is on SC heparin Time spent in the patient's overall evaluation,decision-making process, review of diagnostic data, adjustment of management, discussion with other providers, nursing nursing and ancillary staff involved in patient's care documentation, 52 minutes Charges/Coding Visit Charges Inpatient E&M: 53214 Subs Hosp L3
[2022-04-01] MEDS: Ensure Plus High Protein 120 ML LIQUID PO ×2 (11:46→17:12)
[2022-04-01 12:10] LABS: Bedside Glucose 141 mg/dL (74-106)
[2022-04-01 13:49] LABS: Anion Gap 14 (5-15); BUN 39 mg/dL (7-18); BUN/Creat Ratio 3.2 RATIO (10-20); Calcium,Total 9.2 mg/dL (8.5-10.1); Chloride 104 mmol/L (98-107); EST Glomerular Filtration Rate 3 mL/min (>60); Est Glom Filt Rate - Afr Amer 4 mL/min (>60); Glucose 193 mg/dL (74-106); Potassium 4.2 mmol/L (3.5-5.1); Sodium Level 138 mmol/L (136-145)
[2022-04-01 18:30] LABS: Bedside Glucose 102 mg/dL (74-106)
--- NOTE | 2022-04-01 19:36 | NURSING ---
Pt reports feeling weaker to rt arm. Facial droop noted that was not there yesterday when this nurse cared for pt. Pt reports weakness started about 15 minutes ago after dialysis started. Stroke Alert called d/t symptoms.
--- NOTE | 2022-04-01 20:00 | CT_ITS ---
We are attempting to reach an attending provider to discuss findings. An addendum with communication details will be sent when the communication is complete. STUDY: CTA HEAD AND NECK WITH CONTRAST REASON FOR EXAM: Female, 76 years old. Neuro symptoms. RADIATION DOSAGE (If Supplied By Facility): CTDIvol = ( 19.48 ) mGy, DLP = ( 631.65 ) mGycm TECHNIQUE: CT angiography was performed with a multi-detector CT scanner. Data acquisition was obtained from the skull base through the vertex following intravenous administration of IV 100mL Isovue-370. MIP images were reconstructed from the axial data set. Post-processing of the angiographic images was performed, with multiplanar reformation and 3D reconstruction. Individualized dose optimization techniques were used for this CT. COMPARISON: No relevant priors. FINDINGS: Normal bilateral petrous carotid arteries. There is calcified plaque formation of the right cavernous carotid artery, without a cross-sectional luminal stenosis. There is calcified plaque formation of the left cavernous carotid artery, without a cross-sectional luminal stenosis. Normal right A1 segments of the anterior cerebral artery. Normal left A1 segments of the anterior cerebral artery. Normal intact anterior communicating artery (ACOM). Normal bilateral A2 segments of the anterior cerebral arteries. Normal right M1 and M2 segments of the middle cerebral arteries, with a normal M1 bifurcation. Normal left M1 and M2 segments of the middle cerebral arteries, with a normal M1 bifurcation. There is non-visualization of the right posterior communicating artery (PCOM). There is non-visualization of the left posterior communicating artery (PCOM). Normal bilateral vertebral arteries. Normal basilar artery with a normal basilar bifurcation. The visualized bilateral superior cerebellar (SCA) arteries are normal. 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 The vessel is difficult to visualize beyond the P1 segment although there is no evidence of abrupt occlusion. 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 Normal P1 segment of the left posterior cerebral artery. There is a significant stenosis at the junction of the P1 and P2 segments best seen on image 109 of series 602. The distal vessel is normal. There is no demonstrated aneurysm of the [place]. There is no demonstrated abnormality of the visualized brain. AORTIC ARCH: Atherosclerotic changes of the aortic arch without dissection or aneurysm. Normal origins of the brachiocephalic, left common carotid, and left subclavian arteries. RIGHT CAROTID ARTERIES: Normal right common carotid artery (CCA). Atherosclerotic changes in the carotid bulb without significant stenosis. Normal origin of the right internal carotid (ICA) artery without a hemodynamically significant stenosis. Normal visualized cervical portion of the right internal carotid artery. Normal origin of the right external carotid artery (ECA). LEFT CAROTID ARTERIES: Normal left common carotid artery (CCA). More atherosclerotic changes of the carotid bifurcation without stenosis. Normal origin of the left internal carotid (ICA) artery without a hemodynamically significant stenosis. Normal visualized cervical portion of the left internal carotid artery. Normal origin of the left external carotid artery (ECA). VERTEBRAL ARTERIES: Normal bilateral vertebral arteries. CT/STROKE CTA Head AND Neck W/Con IMPRESSION: 1. Atherosclerotic changes bilateral carotid bifurcations without significant stenosis. 2. Atretic right posterior cerebral artery. The distal vessel is poorly visualized. 3. Focal stenosis at the junction of the P1 and P2 segments of the left posterior cerebral artery. The distal vessel is unremarkable. 4. Otherwise normal [place]. 5. Electronically Signed: Herbert Dumas DO at 20:41 EST ,
--- NOTE | 2022-04-01 20:05 | CT_ITS ---
We are attempting to reach an attending provider to discuss findings. An addendum with communication details will be sent when the communication is complete. INDICATION: stroke EXAMINATION: CT BRAIN - CT Head or Brain W/O Contrast Injection TECHNIQUE: Multiple axial images were obtained of the head without intravenous contrast. A radiation dose optimization technique was used for this scan. IV Contrast dosage and agent: None. COMPARISON: 03/09/2020 FINDINGS: BRAIN PARENCHYMA: No intra- or extra-axial hemorrhage. No acute territorial infarction. Stable chronic lacunar infarction left basal ganglia. No intracranial mass or mass effect. Stable volume loss with low attenuation of the periventricular white matter typical of chronic small vessel disease. Posterior fossa structures are unremarkable. CSF SPACES: Appropriate for age. No hydrocephalus. Basal cisterns are patent. CALVARIUM, SKULL BASE, PARANASAL SINUSES AND MASTOID AIR CELLS: Clear. No discrete lytic or blastic abnormalities. ORBITS: Both globes, extraocular muscles, optic nerves and retrobulbar fat appear unremarkable. CT/STROKE Brain/Head without Cont IMPRESSION: No acute intracranial findings or significant interval change compared to prior examination. Electronically Signed: James Bullard MD at 20:22 EST ,
--- NOTE | 2022-04-01 20:19 | PCM.HOSP.N ---
Hospitalist Note Stroke alert called: 1939 Patient being evaluated by nursing staff with onset of right upper extremity weakness as well as right mild facial droop with some correction with smiling which patient reports initial onset at approximately 1900 with initiation of her peritoneal dialysis. Blood sugar appropriate. Vital signs appropriate. Recent labs with correction of electrolyte disturbances with normalization. Patient has remained off of BP regimen secondary to hypotension. Patient transition to CT scan and underwent CT head as well as CTA head neck with [facility] stroke alert called. Evaluation per them with improvement with now NIH stroke scale 2 with recommendation against tPA but as long as CT head and CTA head neck with no acute findings requiring transfer to initiate stroke work-up. Right upper extremity weakness, right facial concerning for CVA: Will obtain MRI Brain, echo with bubble study as last noted in 2020 did not demonstrate a bubble study being performed, PT/OT/Speech/Nutrition evaluation per protocol. Will allow permissive HTN, maintain on asa, defer statin given noted allergy associated AM FLP, fall precautions. TSH, FLP, hemoglobin A1c, magnesium repeat level to assure normalized will be obtained. Once further imaging and work-up obtained would consider repeat neurology evaluation.
--- NOTE | 2022-04-01 20:23 | ECHOD_ITS ---
Reason For Study: TIA/CVA Procedure This was a 2D Doppler, Color Flow transthoracic echocardiogram. Exam performed portable in patient room. Left Ventricle Normal LV size. Mild concentric left ventricular hypertrophy. Left ventricular systolic function is normal. The estimated ejection fraction is 55 %. No regional wall motion abnormalities noted. Right Ventricle Normal RV size. Normal systolic function. Atria Normal left atrium. Normal right atrium. Mitral Valve Normal mitral valve. Tricuspid Valve Normal tricuspid valve. Aortic Valve Trisinus/trileaflet aortic valve. Mild focal aortic valve calcification. Pulmonic Valve Normal pulmonic valve. Great Vessels Normal aortic root. The pulmonary artery is normal size. Normal inferior vena cava. Pericardium/Pleural No pericardial effusion. MMode/2D Measurements & Calculations LVIDd: 3.7 cm IVSd: 1.3 cm LA dimension: 3.7 cm LVIDs: 2.8 cm LVPWd: 1.3 cm RVDd: 3.1 cm FS: 23.4 % LAV(MOD-bp): 38.7 ml LA A4 area: 18.2 cm2 RA A4 area: 12.3 cm2 LAV(MOD-bp) Indexed: 22.0 ml/m2 LAV(MOD-sp2): 28.4 ml LAV(MOD-sp4): 49.1 ml Time Measurements MV dec time: 0.29 sec Doppler Measurements & Calculations MV E max oj: 59.9 cm/sec Lat Peak E' Oj: 9.5 cm/sec Med Peak E' Oj: 6.5 cm/sec MV A max oj: 104.9 cm/sec E/E' lat: 6.3 E/E' med: 9.2 MV E/A: 0.57 MV V2 max: 120.4 cm/sec MV P1/2t max oj: 63.3 cm/sec Ao V2 max: 112.3 cm/sec MV max P.8 mmHg MV P1/2t: 96.8 msec Ao max P.1 mmHg MV V2 mean: 55.6 cm/sec MV dec slope: 191.5 cm/sec2 Ao V2 mean: 77.5 cm/sec MV mean P.5 mmHg MVA(P1/2t): 2.3 cm2 Ao mean P.8 mmHg MV V2 VTI: 28.1 cm Ao V2 VTI: 22.3 cm AV (velocity ratio): 0.81 LV V1 max: 81.1 cm/sec PA V2 max: 113.6 cm/sec LV V1 max P.6 mmHg LV V1 mean P.5 mmHg LV V1 mean: 58.0 cm/sec LV V1 VTI: 18.0 cm ECHO/Echo Complete Interpretation Summary Normal LV size. Mild concentric left ventricular hypertrophy. Left ventricular systolic function is normal. The estimated ejection fraction is 55 %. Mild focal aortic valve calcification. Ordering Physician: Arabella Li Referring Physician: Hamzah Wallis Performed By: Rock Moura RCS
[2022-04-01 20:43] LABS: Magnesium 3.1 mg/dL (1.6-2.6)
[2022-04-01 21:11] LABS: Bedside Glucose 213 mg/dL (74-106)
[2022-04-02] VITALS (8 sets, daily range): BP systolic 93–123; BP diastolic 35–51; PULSE 84–96; RESP 15–20; TEMP 36.3–37.2; O2SAT 96–100
[2022-04-02 00:10] LABS: Bedside Glucose 200 mg/dL (74-106)
[2022-04-02] MEDS: 0.9% Normal Saline 1,000 ML 100 ML IV (00:42)
[2022-04-02 06:22] LABS: Absolute Lymphocyte Count 1.98 X10^3/uL (0.83-4.51); Absolute Neutrophil Count 8.5 X10^3/uL (2.0-7.7); Basophil# 0.05 X10^3/uL; Basophil% 0.4 % (0-1); Eosinophil# 0.58 X10^3/uL; Eosinophils% 4.5 % (0-5); Hematocrit 25.5 % (37-47); Hemoglobin 8.4 g/dL (12.0-15.0); Lymphocyte # 1.98 X10^3/ul (0.83-4.51); Lymphocyte % 15.4 % (19-41); Mean Corp Hgb Conc 32.9 g/dL (32-36); Mean Corpuscular Hgb 33.5 pg (27.0-32.0); Mean Corpuscular Volume 101.6 fL (81-99); Mean Platelet Vol. 11.3 fl (6.2-12.0); Monocyte# 1.64 X10^3/uL; Monocyte% 12.7 % (0-10); NRBC Flagged by Analyzer 0 % (0-5); Neutrophil # 8.52 X10^3/uL (2.7-7.7); Neutrophil % 66.1 % (47-70); POSITIVE DIFFERENTIAL YES; Platelet Count 137 K/mm3 (150-450); RBC Distribution Width SD 59.7 fl (35.1-43.9); Red Blood Count 2.51 M/mm3 (4.2-5.4); White Blood Count 12.9 K/mm3 (4.4-11.0)
[2022-04-02 06:52] LABS: Differential Indicated SCAN CRITERIA MET
[2022-04-02 07:03] LABS: Anisocytosis 1+; Macrocytosis 1+; Platelet Estimate SLT DEC (ADEQ)
--- NOTE | 2022-04-02 07:14 | PN.HOSP_ITS ---
Subjective Subjective Overnight had stroke call, given low NIH and improvement in symptoms was not a tPA candidate at that time however continue to fluctuate. MRI this a.m. showed multiple small acute infarcts. Reports that initially her right arm had gotten significantly worse and was flaccid but began to improve throughout the morning however. Objective Data Objective Data Vital Signs: Vital Signs Temp Pulse Resp BP Pulse Ox O2 Del Method FiO2 97.9 F 89 16 111/51 L 98 Room Air 100 04/02/22 04:03 04/02/22 04:03 04/02/22 04:03 04/02/22 04:03 04/02/22 04:03 04/02/22 04:45 03/31/22 18:30 Oxygen Delivery Method Room Air Weight: 71.1 kg Body Mass Index (BMI) 24.5 Intake & Output: Intake and Output for Last 24 Hours 03/31/22 04/01/22 04/02/22 23:59 23:59 23:59 Intake Total 1190 / 1430 1840 / 2040 200 / 200 Output Total 862 / 862 0 / 0 Balance 1190 / 1430 978 / 1178 200 / 200 Lab / Micro Data Result Diagrams: 04/02/22 05:47 04/02/22 05:47 Labs: Laboratory Results - last 24 hr 04/01/22 06:05: Sodium 135 L, Potassium 3.1 L, Chloride 100, Carbon Dioxide 19.0 L, Anion Gap 16 H, BUN 38 H, Creatinine 11.80 H*, Estim Creat Clear Calc 3.56, Est GFR (MDRD) Af Amer 4 L, Est GFR (MDRD) Non-Af 3 L, BUN/Creatinine Ratio 3.2 L, Glucose 170 H, Calcium 8.9, Phosphorus 5.8 H, Magnesium 1.4 L 04/01/22 07:29: POC Glucose 179 H 04/01/22 11:43: POC Glucose 141 H 04/01/22 13:20: Sodium 138, Potassium 4.2, Chloride 104, Carbon Dioxide 20.0 L, Anion Gap 14, BUN 39 H, Creatinine 12.00 H*, Estim Creat Clear Calc 3.50, Est GFR (MDRD) Af Amer 4 L, Est GFR (MDRD) Non-Af 3 L, BUN/Creatinine Ratio 3.2 L, Glucose 193 H, Calcium 9.2 04/01/22 13:20: Magnesium 3.1 H 04/01/22 17:05: POC Glucose 102 04/01/22 19:37: POC Glucose 213 H 04/01/22 21:17: POC Glucose 200 H 04/02/22 05:47: WBC 12.9 H, RBC 2.51 L, Hgb 8.4 L, Hct 25.5 L, MCV 101.6 H, MCH 33.5 H, MCHC 32.9, RDW Std Deviation 59.7 H, RDW Coeff of [place]pe 16.0 H, Plt Count 137 L, MPV 11.3, Immature Gran % (Auto) 0.900, Neut % (Auto) 66.1, Lymph % (Auto) 15.4 L, [place] % (Auto) 12.7 H, Eos % (Auto) 4.5, Baso % (Auto) 0.4, Absolute Neuts (auto) 8.5 H, Absolute Lymphs (auto) 1.98, Nucleated RBC % 0, Diff Path Review July, Platelet Estimate SLT DEC, Anisocytosis 1+, Macr ocytosis 1+ Radiography Diagnostic Testing: Radiology Impression Head/Neck CTA 04/01/22 20:00 IMPRESSION: 1. Atherosclerotic changes bilateral carotid bifurcations without significant stenosis. 2. Atretic right posterior cerebral artery. The distal vessel is poorly visualized. 3. Focal stenosis at the junction of the P1 and P2 segments of the left posterior cerebral artery. The distal vessel is unremarkable. 4. Otherwise normal [place]. 5. Electronically Signed: Herbert Dumas DO at 20:41 EST Reading Location ID and State: [address] [place] [address] Tel [phone], Service support , ADDENDUM: 04/01/222047 IMPRESSION: 1. Atherosclerotic changes bilateral carotid bifurcations without significant stenosis. 2. Atretic right posterior cerebral artery. The distal vessel is poorly visualized. 3. Focal stenosis at the junction of the P1 and P2 segments of the left posterior cerebral artery. The distal vessel is unremarkable. 4. Otherwise normal [place]. 5. N.B. : The above Results were Read Back by Herbert Dumas DO to Arabella Li MD, and understanding confirmed on 04/01/2022 20:41:48 (ET). Electronically Signed: Herbert Dumas at 20:41 EST Reading Location ID and State: [facility] / [place] Tel [phone], Service support , Brain CT 04/01/22 20:05 IMPRESSION: No acute intracranial findings or significant interval change compared to prior examination. Electronically Signed: James Bullard MD at 20:22 EST , ADDENDUM: 04/01/222039 IMPRESSION: No acute intracranial findings or significant interval change compared to prior examination. N.B. : The above Results were Read Back by James Bullard MD to Dr. Arabella Li MD, and understanding confirmed on 04/01/2022 20:33:57 (ET). Electronically Signed: James Bullard MD at 20:22 EST , Rhythm Strip Rhythm Strip: Sinus Rhythm Rate: 91 Ectopy: None Physical Exam Const alert and no apparent distress Constitutional Narrative: Oriented HEENT normocephalic and head/scalp atraumatic Eyes Eyes Narrative: EOM grossly intact, anicteric Neck supple Resp normal respiratory effort and clear to auscultation bilaterally Cardio regular rate and regular rhythm GI soft to palpation, non-tender and non-distended Extremity Extremity Narrative: No edema appreciated Neuro Neuro Narrative: Right-sided lower facial droop appreciated, some left-sided tongue deviation, cranial nerves II through XII otherwise intact. Right upper extremity uncoordinated and 2 out of 5 strength compared to 4 out of 5 in left upper extremity, right lower extremity 4 out of 5 strength and left lower extremity 3 out of 5 strength. Reflexes not overtly different and no clonus, had difficulty with [id number] test with right arm in part due to the weakness, left side with minimal difficulty. Alert and oriented Psych Psych Narrative: Cooperative Assessment & Plan Assessment/Plan (1) Hypotension: (2) Hypokalemia: PLAN: Plan KAYLI PELAEZ, is a 76 F with past medical history signal for end-stage kidney disease on peritoneal dialysis at home, recent hospitalization for C. difficile colitis for which patient was discharged on Dificid presents to the hospital with generalized weakness 03/31/22/ #Bilateral lacunar ischemic CVAs, likely embolic Overnight had stroke called due to right facial droop and right upper extremity weakness Neurology noted low NIH and did not feel deficits were severe enough for tPA and routine stroke work-up recommended NIH has been 7 with worsening right hand weakness however she is out of the window for tPA as sx started at 1900 yesterday Correct hypoglycemia MRI MRI brain without contrast demonstrated small acute infarct in the anterior inferior aspect of the left thalamic lobe with numerous additional deep white matter and cortical infarcts scattered throughout the superior aspects of the bilateral parietal lobes. A few acute infarcts also seen in the anterior superior aspects of the bilateral frontal lobes. Echo pending with bubble study Aspirin, multiple intolerances to statins and gemfibrozil Now NPO d/t worsening swallowing PT/OT/speech Awaiting bubble study and then will renotify neurology #Type 2 diabetes mellitus Was hypoglycemic this morning and her insulin has been held A1c on admission 7.0 Continue sliding scale insulin and Accu-Cheks, glucose has been within range since admission, will restart long-acting insulin as able/tolerated but continue to hold especially she is n.p.o. at this time #Severe symptomatic hypokalemia Hypokalemia improved with aggressive replacement, continue replacement #Hypertension Holding antihypertensives and IV fluids #End-stage renal disease on peritoneal dialysis Nephrology on consult #History of previous TIA See 1, on aspirin #Psoriasis Hydroxychloroquine #DVT prophylaxis: Subcu heparin Time spent in the patient's overall evaluation,decision-making process, review of diagnostic data, adjustment of management, discussion with other providers, nursing nursing and ancillary staff involved in patient's care documentation, 30 minutes Charges/Coding Visit Charges Inpatient E&M: 50380 Subs Hosp L2
[2022-04-02 07:20] LABS: Anion Gap 15 (5-15); BUN 42 mg/dL (7-18); BUN/Creat Ratio 3.7 RATIO (10-20); Calcium,Total 8.5 mg/dL (8.5-10.1); Chloride 106 mmol/L (98-107); Cholesterol 156 mg/dL (200); EST Glomerular Filtration Rate 3 mL/min (>60); Est Glom Filt Rate - Afr Amer 4 mL/min (>60); Estimated Creatinine Clearance 3.65 ml/min; Glucose 67 mg/dL (74-106); High Density Lipoprotein 26 mg/dL; Potassium 4.5 mmol/L (3.5-5.1); Sodium Level 137 mmol/L (136-145); Triglycerides 368 mg/dL; Very Low Density Lipoprotein 74 mg/dL (5-40)
[2022-04-02] MEDS: Dextrose 50%-Water 25 GM/50 ML DISP.SYRIN IV (07:29)
[2022-04-02] MEDS: 0.9% Saline Lock 10 ML Syringe IV ×2 (07:29→11:37)
[2022-04-02 08:01] LABS: Bedside Glucose 74 mg/dL (74-106)
[2022-04-02 08:35] LABS: Bedside Glucose 185 mg/dL (74-106)
--- NOTE | 2022-04-02 09:30 | MRI_ITS ---
We are attempting to reach an attending provider to discuss findings. An addendum with communication details will be sent when the communication is complete. STUDY: MRI BRAIN WITHOUT CONTRAST REASON FOR EXAM: Female, 76 years old. CVA, increased weakness TECHNIQUE: Standardized multiplanar fat and water weighted pulse sequences were obtained. COMPARISON: Head CT dated April 01, 2022 FINDINGS: A small acute infarct is present in the anterior inferior aspect of the left thalamic lobe with numerous additional deep white matter and cortical infarcts scattered throughout the superior aspects of the bilateral parietal lobes. A few acute infarcts are also seen in the anterior superior aspects of the bilateral frontal lobes. 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 There is mild cerebral atrophy with widening of the extra-axial spaces and ventricular dilatation. There are multiple white matter hyperintensities, distributed throughout the deep white matter tracts of the cerebral hemispheres, consistent with mild to moderate chronic white matter ischemic changes. Normal T2* images of the brain without demonstrated susceptibility artifact. There is no demonstrated hemosiderin stain. Normal bilateral basal ganglia. Prominent perivascular space at the caudate thalamic junction on the left. There is no extra-axial fluid accumulation. Normal flow voids within the major intracranial circulation suggesting patency by spin echo criteria. Normal sella turcica, pituitary gland, infundibular stalk, optic chiasm and hypothalamus. Normal tectal plate and pineal gland. Normal midbrain, sushil and medulla. Normal cerebellum. Normal basal cisterns. Normal bilateral temporal bones. Normal bilateral internal auditory canals. No demonstrated orbital abnormality, within the constraints of a routine brain study. Normal visualized paranasal sinuses. Normal calvarium and skull base. Normal visualized soft tissue structures. Normal visualized upper cervical spine. MRI/Brain without Contrast IMPRESSION: 1. A small acute infarct is present in the anterior inferior aspect of the left thalamic lobe with numerous additional deep white matter and cortical infarcts scattered throughout the superior aspects of the bilateral parietal lobes. A few acute infarcts are also seen in the anterior superior aspects of the bilateral frontal lobes. 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 Electronically Signed: Justin Edmondson MD at 10:20 EST ,
[2022-04-02] MEDS: Heparin Injection (Vial) 5,000 UNIT/ML VIAL 5000 UNIT SC ×2 (11:38→21:53)
[2022-04-02 12:01] LABS: Bedside Glucose 101 mg/dL (74-106)
[2022-04-02] MEDS: Epoetin Alfa epbx 10,000 UNITS/ML 6000 UNIT SC (12:46)
[2022-04-02] MEDS: 0.9% Normal Saline 1,000 ML 50 ML IV (12:47)
[2022-04-02 14:04] LABS: Pathologist Review Reviewed
--- NOTE | 2022-04-02 14:05 | PN.RENAL_ITS ---
Subjective Subjective right facial droop, rt upper extrem weakness persists with abnormal MRI showing acute infarcts. Denied trouble with swallowing. No SOB. Dialysis held last night. BP stable. Objective Data Objective Data Vital Signs: Vital Signs Temp Pulse Resp BP Pulse Ox O2 Del Method FiO2 98.2 F 85 20 H 116/35 L 100 Room Air 100 04/02/22 12:00 04/02/22 12:00 04/02/22 12:00 04/02/22 12:00 04/02/22 12:00 04/02/22 12:00 03/31/22 18:30 Oxygen Delivery Method Room Air Weight: 71.1 kg Body Mass Index (BMI) 24.5 Intake & Output: Intake and Output for Last 24 Hours 03/31/22 04/01/22 04/02/22 23:59 23:59 23:59 Intake Total 1190 / 1430 1840 / 2040 1138.34 / 1138.34 Output Total 862 / 862 0 / 0 Balance 1190 / 1430 978 / 1178 1138.34 / 1138.34 Lab / Micro Data Result Diagrams: 04/02/22 05:47 04/02/22 05:47 Labs: Laboratory Results - last 24 hr 04/01/22 13:20: Magnesium 3.1 H 04/01/22 17:05: POC Glucose 102 04/01/22 19:37: POC Glucose 213 H 04/01/22 21:17: POC Glucose 200 H 04/02/22 05:47: WBC 12.9 H, RBC 2.51 L, Hgb 8.4 L, Hct 25.5 L, MCV 101.6 H, MCH 33.5 H, MCHC 32.9, RDW Std Deviation 59.7 H, RDW Coeff of Pepe 16.0 H, Plt Count 137 L, MPV 11.3, Immature Gran % (Auto) 0.900, Neut % (Auto) 66.1, Lymph % (Auto) 15.4 L, Nuckolls % (Auto) 12.7 H, Eos % (Auto) 4.5, Baso % (Auto) 0.4, Absolute Neuts (auto) 8.5 H, Absolute Lymphs (auto) 1.98, Nucleated RBC % 0, Diff Path Review Reviewed, Platelet Estimate SLT DEC, Anisocytosis 1+, Macrocytosis 1+ 04/02/22 05:47: Sodium 137, Potassium 4.5, Chloride 106, Carbon Dioxide 16.0 L, Anion Gap 15, BUN 42 H, Creatinine 11.50 H*, Estim Creat Clear Calc 3.65, Est GFR (MDRD) Af Amer 4 L, Est GFR (MDRD) Non-Af 3 L, BUN/Creatinine Ratio 3.7 L, Glucose 67 L, Calcium 8.5, Triglycerides 368 H, Cholesterol 156, LDL Cholesterol 56, VLDL Cholesterol 74 H, HDL Cholesterol 26 L, TSH 4.30 H 04/02/22 05:47: Hemoglobin A1c 7.0 H 04/02/22 06:45: POC Glucose 74 04/02/22 08:00: POC Glucose 185 H 04/02/22 11:41: POC Glucose 101 Radiography Diagnostic Testing: Radiology Impression Head/Neck CTA 04/01/22 20:00 IMPRESSION: 1. Atherosclerotic changes bilateral carotid bifurcations without significant stenosis. 2. Atretic right posterior cerebral artery. The distal vessel is poorly visualized. 3. Focal stenosis at the junction of the P1 and P2 segments of the left posterior cerebral artery. The distal vessel is unremarkable. 4. Otherwise normal the [place]. 5. Electronically Signed: Herbert Dumas DO at 20:41 EST Reading Location ID and State: [facility] / [place] Tel [phone], Service support , ADDENDUM: 04/01/222047 IMPRESSION: 1. Atherosclerotic changes bilateral carotid bifurcations without significant stenosis. 2. Atretic right posterior cerebral artery. The distal vessel is poorly visualized. 3. Focal stenosis at the junction of the P1 and P2 segments of the left posterior cerebral artery. The distal vessel is unremarkable. 4. Otherwise normal the [place] of [place]. 5. N.B. : The above Results were Read Back by Herbert Dumas DO to Arabella Li MD, and understanding confirmed on 04/01/2022 20:41:48 (ET). Electronically Signed: Herbert Dumas DO at 20:41 EST Reading Location ID and State: [facility] / [place] Tel [phone], Service support , Brain CT 04/01/22 20:05 IMPRESSION: No acute intracranial findings or significant interval change compared to prior examination. Electronically Signed: James Bullard MD at 20:22 EST , ADDENDUM: 04/01/22 2040 IMPRESSION: No acute intracranial findings or significant interval change compared to prior examination. N.B. : The above Results were Read Back by James Bullard MD to Dr. Arabella Li MD, and understanding confirmed on 04/01/2022 20:33:57 (ET). Electronically Signed: James Bullard MD at 20:22 EST , Brain MRI 04/02/22 09:30 IMPRESSION: 1. A small acute infarct is present in the anterior inferior aspect of the left thalamic lobe with numerous additional deep white matter and cortical infarcts scattered throughout the superior aspects of the bilateral parietal lobes. A few acute infarcts are also seen in the anterior superior aspects of the bilateral frontal lobes. 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 Electronically Signed: Justin Edmondson MD at 10:20 EST , ADDENDUM: 04/02/22 1034 IMPRESSION: 1. A small acute infarct is present in the anterior inferior aspect of the left thalamic lobe with numerous additional deep white matter and cortical infarcts scattered throughout the superior aspects of the bilateral parietal lobes. A few acute infarcts are also seen in the anterior superior aspects of the bilateral frontal lobes. 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 N.B. : The above Results were Read Back by Justin Edmondson MD to Alejandra Aceves RN, and understanding confirmed on 04/02/2022 10:27:10 (ET). Electronically Signed: Justin Edmondson MD at 10:20 EST Reading Location ID and State: [address] [place] [address] , Service support , Rhythm Strip Rhythm Strip: Sinus Rhythm Rate: 91 Ectopy: None Physical Exam Const alert, oriented x3 and no apparent distress Resp clear to auscultation bilaterally Cardio regular rate GI non-tender and non-distended Auscultation: normoactive bowel sounds Palpation: soft Neuro Neuro Narrative: right facial droop, right upper extrem weakess Psych cooperative Assessment & Plan Assessment/Plan (1) End-stage renal disease on peritoneal dialysis: PLAN: We will arrange CCPD tonight all 1.5% solution 2 L fill volume 5 exchanges over 10 hours (2) Acute hypokalemia: PLAN: resolved (3) Acute dehydration: PLAN: IV fluids as needed (4) C. difficile diarrhea: (5) Hypotension: PLAN: IV fluids as needed hold blood pressure medication (6) Anemia in chronic kidney disease (CKD): QUALIFIERS: Chronic kidney disease stage: stage 4 (severe) Qualified Code(s): N18.4 - Chronic kidney disease, stage 4 (severe); D63.1 - Anemia in chronic kidney disease PLAN: Hemoglobin 8.4g, LETI x1 (7) Essential (primary) hypertension: PLAN: BP low normal (8) Diabetes mellitus type 2, controlled, with complications: (9) Hyperphosphatemia: PLAN: phos improved, on binders (10) Hypoalbuminemia: PLAN: Protein supplement (11) Debility: PLAN: Physical therapy assessment, speech therapy
--- NOTE | 2022-04-02 15:42 | CASEMGMT ---
CHANO CORTEZ chart review: Patient was admitted 03/08-03/14/22 for intractable N/V/D and C-diff. See CHANO CORTEZ assessment from 03/09/22. Patient was discharged to home with [facility] and Dificid 200 mg. Patient returned 03/31/22 for increased weakness and was admitted for hypokalemia. Patient was a stroke alert on 04/01/22 and MRI confirmed acute stroke. Patient was seen by therapy and recommending SNF at discharge. CHANO CORTEZ in to discuss needs with patient. Patient states she followed up with her PCP since last admission. Patient confirms that she was receiving services from [facility]. Patient states she was taking her Dificid as prescribed but not all her home meds as she felt ill. CHANO CORTEZ discussed SNF recommendation by therapy for additional rehab. Patient and was given a list of SNF providers including quality and resource use data and consistent with the patient?s preferred geographical region, medical needs, and insurance network were provided from the [employer] Guide. CHANO CORTEZ requested and patient to review and give preferences. Patient completes PD at home and will need at SNF at discharge. SW updated regarding possible SNF placement. CM will continue to follow this patient and plan for a safe discharge.
--- NOTE | 2022-04-02 15:52 | TELEMED_ITS ---
[facility] Tele[facility] has confirmed receipt of a request for visit. This document confirms receipt of the order initiating the consult. To find the results of the consultation, please view the patient's reports for the scanned Telemed Consult.
[2022-04-02] MEDS: Hydroxychloroquine 200 MG Tablet PO (17:26)
[2022-04-02] MEDS: Calcium Acetate 667 MG Capsule 1334 MG PO (17:26)
[2022-04-02] MEDS: Aspirin 81 MG TAB.CHEW PO (17:51)
[2022-04-02 17:55] LABS: Bedside Glucose 108 mg/dL (74-106)
--- NOTE | 2022-04-02 18:34 | CASEMGMT ---
SW met with patient to complete the PHQ 9. Patient engaged in conversation easily. SW discussed that patient had a high score on the PHQ-9 of 17 and patient said that she is not normally like that but since she has had CDIFF she has not felt good and that contributes to her depression. Patient said that she thinks when she feels better she will be fine. Patient voiced that if she felt suicidal she would speak to the RN's and advise them of her feelings. SW provided patient with list of counseling agencies including Dr. Ndiaye and Crisis phone number. JOSE DAVID updated CHANO Gutiérrez. JOSE DAVID updated JOSE DAVID Raymond Plan: Resources provided Sarah GONZALES
[2022-04-02] MEDS: Clopidogrel Bisulfate 75 MG Tablet PO (18:52)
--- NOTE | 2022-04-02 22:06 | DIALYSIS ---
CCPD treatment initiated using aseptic technique at 2125, all 1.5% dextrose bags, 2L fills (5), 10 hour treatment time, LUQ dressing changed, site benign, initial effluent pre-drained 888mL, clear and yellow, fill 1 of 5 in progress
[2022-04-02 22:35] LABS: Bedside Glucose 109 mg/dL (74-106)
[2022-04-03] VITALS: BP 117/58; PULSE 92; RESP 18; TEMP 36.8; O2SAT 98
--- NOTE | 2022-04-03 01:52 | PCM.HOSP.N ---
Hospitalist Note Patient guiac positive. Hgb have trended down. Will change to IV PPI, clears only, d/c heparin but given recent acute CVA will continue asa, plavix per Neurology recommendations but will review this presentation with Dr. Johnson for consideration GI consultation.
[2022-04-03 04:00] VITALS: BP 135/48; PULSE 93; RESP 16; TEMP 36.8; O2SAT 99
[2022-04-03 06:21] LABS: Absolute Lymphocyte Count 1.06 X10^3/uL (0.83-4.51); Absolute Neutrophil Count 9.3 X10^3/uL (2.0-7.7); Basophil# 0.06 X10^3/uL; Basophil% 0.5 % (0-1); Eosinophil# 0.55 X10^3/uL; Eosinophils% 4.4 % (0-5); Hematocrit 23.7 % (37-47); Hemoglobin 7.8 g/dL (12.0-15.0); Lymphocyte # 1.06 X10^3/ul (0.83-4.51); Lymphocyte % 8.5 % (19-41); Mean Corp Hgb Conc 32.9 g/dL (32-36); Mean Corpuscular Hgb 32.8 pg (27.0-32.0); Mean Corpuscular Volume 99.6 fL (81-99); Mean Platelet Vol. 11.2 fl (6.2-12.0); Monocyte# 1.39 X10^3/uL; Monocyte% 11.1 % (0-10); NRBC Flagged by Analyzer 0 % (0-5); Neutrophil # 9.28 X10^3/uL (2.7-7.7); Neutrophil % 74.2 % (47-70); Platelet Count 117 K/mm3 (150-450); RBC Distribution Width CV 15.9 % (11.6-14.6); RBC Distribution Width SD 57.3 fl (35.1-43.9); Red Blood Count 2.38 M/mm3 (4.2-5.4); White Blood Count 12.5 K/mm3 (4.4-11.0)
[2022-04-03 06:58] LABS: Anion Gap 14 (5-15); BUN 42 mg/dL (7-18); BUN/Creat Ratio 3.9 RATIO (10-20); Calcium,Total 8.5 mg/dL (8.5-10.1); Chloride 104 mmol/L (98-107); EST Glomerular Filtration Rate 4 mL/min (>60); Est Glom Filt Rate - Afr Amer 5 mL/min (>60); Estimated Creatinine Clearance 3.89 ml/min; Glucose 125 mg/dL (74-106); Potassium 3.7 mmol/L (3.5-5.1); Sodium Level 137 mmol/L (136-145)
[2022-04-03 07:05] LABS: Bedside Glucose 130 mg/dL (74-106)
--- NOTE | 2022-04-03 07:28 | NURSING ---
Report called to label fuser tender Juanito MADDEN for report prior to procedure
--- NOTE | 2022-04-03 07:34 | PN.HOSP_ITS ---
Subjective Subjective f/u stroke Objective Data Objective Data Vital Signs: Vital Signs Temp Pulse Resp BP Pulse Ox O2 Del Method FiO2 98.2 F 93 16 135/48 H 99 Room Air 100 04/03/22 04:00 04/03/22 04:00 04/03/22 04:00 04/03/22 04:00 04/03/22 04:00 04/03/22 04:43 03/31/22 18:30 Oxygen Delivery Method Room Air Weight: 72.62 kg Body Mass Index (BMI) 24.5 Intake & Output: Intake and Output for Last 24 Hours 04/01/22 04/02/22 04/03/22 23:59 23:59 23:59 Intake Total 1840 / 2040 1138.34 / 1138.34 110 / 110 Output Total 862 / 862 0 / 0 0 / 0 Balance 978 / 1178 1138.34 / 1138.34 110 / 110 Lab / Micro Data Result Diagrams: 04/03/22 05:55 04/03/22 05:55 Labs: Laboratory Results - last 24 hr 04/02/22 05:47: Diff Path Review Reviewed 04/02/22 06:45: POC Glucose 74 04/02/22 08:00: POC Glucose 185 H 04/02/22 11:41: POC Glucose 101 04/02/22 17:23: POC Glucose 108 H 04/02/22 21:51: POC Glucose 109 H 04/03/22 05:55: WBC 12.5 H, RBC 2.38 L, Hgb 7.8 L, Hct 23.7 L, MCV 99.6 H, MCH 32.8 H, MCHC 32.9, RDW Std Deviation 57.3 H, RDW Coeff of Pepe 15.9 H, Plt Count 117 L, MPV 11.2, Immature Gran % (Auto) 1.300 H, Neut % (Auto) 74.2 H, Lymph % (Auto) 8.5 L, [place] % (Auto) 11.1 H, Eos % (Auto) 4.4, Baso % (Auto) 0.5, Absolu te Neuts (auto) 9.3 H, Absolute Lymphs (auto) 1.06, Nucleated RBC % 0 04/03/22 05:55: Sodium 137, Potassium 3.7, Chloride 104, Carbon Dioxide 19.0 L, Anion Gap 14, BUN 42 H, Creatinine 10.80 H*, Estim Creat Clear Calc 3.89, Est GFR (MDRD) Af Amer 5 L, Est GFR (MDRD) Non-Af 4 L, BUN/Creatinine Ratio 3.9 L, Glucose 125 H, Calcium 8.5 04/03/22 06:26: POC Glucose 130 H Micro: Microbiology 04/02/22 17:40 Stool Stool Occult Blood (NATALIE) - Final Occult Blood Positive Radiography Diagnostic Testing: Radiology Impression Echocardiogram 04/01/22 20:23 Interpretation Summary Normal LV size. Mild concentric left ventricular hypertrophy. Left ventricular systolic function is normal. The estimated ejection fraction is 55 %. Mild focal aortic valve calcification. Ordering Physician: Arablela Li Referring Physician: Hamzah Wallis Performed By: Rock Moura RCS Brain MRI 04/02/22 09:30 IMPRESSION: 1. A small acute infarct is present in the anterior inferior aspect of the left thalamic lobe with numerous additional deep white matter and cortical infarcts scattered throughout the superior aspects of the bilateral parietal lobes. A few acute infarcts are also seen in the anterior superior aspects of the bilateral frontal lobes. 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 Electronically Signed: Justin Edmondson MD at 10:20 EST Reading Location ID and State: [facility] / [place] , Service support , ADDENDUM: 04/02/22 1039 IMPRESSION: 1. A small acute infarct is present in the anterior inferior aspect of the left thalamic lobe with numerous additional deep white matter and cortical infarcts scattered throughout the superior aspects of the bilateral parietal lobes. A few acute infarcts are also seen in the anterior superior aspects of the bilateral frontal lobes. 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 N.B. : The above Results were Read Back by Justin Edmondson MD to Alejandra Aceves RN, and understanding confirmed on 04/02/2022 10:27:10 (ET). Electronically Signed: Justin Edmondson MD at 10:20 EST Reading Location ID and State: [facility] / [place] , Service support , Rhythm Strip Rhythm Strip: Sinus Rhythm Rate: 91 Ectopy: None Physical Exam Const alert, oriented x3 and no apparent distress Resp clear to auscultation bilaterally Cardio regular rate GI non-tender and non-distended Auscultation: normoactive bowel sounds Palpation: soft Neuro Neuro Narrative: right facial droop, right upper extrem weakess Psych cooperative Assessment & Plan Assessment/Plan (1) Hypotension: (2) Hypokalemia: PLAN: Plan KAYLI PELAEZ, is a 76 F with past medical history signal for end-stage kidney disease on peritoneal dialysis at home, recent hospitalization for C. difficile colitis for which patient was discharged on Dificid presents to the hospital with generalized weakness 03/31/22/ #Bilateral lacunar ischemic CVAs, likely embolic Overnight had stroke called due to right facial droop and right upper extremity weakness Neurology noted low NIH and did not feel deficits were severe enough for tPA and routine stroke work-up recommended NIH has been 7 with worsening right hand weakness however she is out of the window for tPA as sx started at 1900 yesterday Correct hypoglycemia MRI MRI brain without contrast demonstrated small acute infarct in the anterior inferior aspect of the left thalamic lobe with numerous additional deep white matter and cortical infarcts scattered throughout the superior aspects of the bilateral parietal lobes. A few acute infarcts also seen in the anterior superior aspects of the bilateral frontal lobes. Echo pending with bubble study Aspirin, multiple intolerances to statins and gemfibrozil Now NPO d/t worsening swallowing PT/OT/speech Awaiting bubble study and then will renotify neurology 04/03: Echo overall unremarkable, did not comment on bubble study but previous echoes reported in history that there had been a negative bubble study in the past. Seen yesterday by neurology who recommended long-term monitor to monitor for A. fib additionally recommended DAPT for 3 weeks but up to 90 days may be reasonable. Evaluated by speech therapy and given diet recommendations. #Acute on chronic anemia Baseline appears to be 9-10, on 03/31 it was 11.6 but this was possibly in part to volume depletion however in 2 days it dropped to 8.4 and dropped further to 7.8 Was told yesterday by nursing staff that she was observed to have blood in stool, FOBT obtained and is positive Will consult GI for possible scope as it is imperative she stay on antiplatelets given recent stroke and if A. fib is found she will need full anticoagulation Started on IV PPI every 12 Was given dose of LETI yesterday per nephro #Type 2 diabetes mellitus Was hypoglycemic this morning and her insulin has been held A1c on admission 7.0 Continue sliding scale insulin and Accu-Cheks, glucose has been within range since admission, will restart long-acting insulin as able/tolerated but continue to hold especially she is n.p.o. at this time 04/03: Seen by speech and given updated diet recommendations, will adjust insulin as she progresses #Severe symptomatic hypokalemia Hypokalemia improved with aggressive replacement, continue replacement #Hypertension Holding antihypertensives and IV fluids #End-stage renal disease on peritoneal dialysis Nephrology on consult #History of previous TIA See 1, on aspirin, plavix #Psoriasis Hydroxychloroquine #DVT prophylaxis: SCDs, subcu heparin held due to possible GI bleed Time spent in the patient's overall evaluation,decision-making process, review of diagnostic data, adjustment of management, discussion with other providers, nursing nursing and ancillary staff involved in patient's care documentation, 30 minutes
[2022-04-03 08:00] VITALS: BP 112/46; PULSE 90; RESP 18; TEMP 36.4; O2SAT 100
--- NOTE | 2022-04-03 08:09 | DIALYSIS ---
CCPD completed Pt disconnected using aseptic technique. Effluent clear yellow. Site benign dressing dry and intact. UF 411mL removed. pt stable. Report to floor RN
[2022-04-03] MEDS: Aspirin 81 MG TAB.CHEW PO (08:42)
[2022-04-03] MEDS: Clopidogrel Bisulfate 75 MG Tablet PO (08:42)
[2022-04-03] MEDS: Folic Acid/Vitamin B Comp W-C 1 Capsule 1 CAP PO (08:43)
[2022-04-03] MEDS: Ensure Plus High Protein 120 ML LIQUID PO (08:43)
[2022-04-03] MEDS: Calcitriol 0.25 MCG Capsule PO (08:43)
[2022-04-03] MEDS: Calcium Acetate 667 MG Capsule 1334 MG PO (08:43)
[2022-04-03] MEDS: Hydroxychloroquine 200 MG Tablet PO (08:44)
[2022-04-03 11:30] LABS: Bedside Glucose 163 mg/dL (74-106)
--- NOTE | 2022-04-03 11:43 | CASEMGMT ---
SW checked in with patient and her Marcos. They had not looked at the list. Patient's asked about [facility] Rehab or TCU. SW can check. Next choice would be [facility]. [facility] TCU and Rehab do not take any dialysis. SW looked at the list that was printed for patient and [facility] is not on the list, therefore they do not take patient's insurance. SW called the other facilities on the list to see who takes patients on peritoneal dialysis. [facility] said no. [facility] do, but they would need a day or so as the staff would need to be trained. SW left messages for [facility], [facility], [facility], [facility], and [facility]. SW went to patient's room and let patient and Marcos know this information. Patient's would like to know what the other facilities say. Plan: SNF pending facilitiy choices, accepting facility, and insurance approval. Linda Montgomery HEAD LOADER LITZY
--- NOTE | 2022-04-03 11:46 | CT_ITS ---
We are attempting to reach an attending provider to discuss findings. An addendum with communication details will be sent when the communication is complete. STUDY: CT BRAIN WITHOUT CONTRAST REASON FOR EXAM: Female, 76 years old. Mental status change post stroke 24 hrs ago,?bleed RADIATION DOSAGE (If Supplied By Facility): CTDIvol = ( 44.99 ) mGy, DLP = ( 745.49 ) mGycm TECHNIQUE: Transaxial CT imaging of the brain was performed without administration of intravenous contrast material. Individualized dose optimization techniques were used for this CT. COMPARISON: Comparison is made with prior examination dated 09/29/2022. FINDINGS: Normal soft tissue structures. Normal calvarium. There is mild cerebral atrophy with widening of the extra-axial spaces and ventricular dilatation. There is evidence of petechial hemorrhage in the left frontoparietal gyri. Stable small lacunar infarct in the left basal ganglion. Normal brainstem. Normal cerebellum. There is no intracranial hemorrhage. There are no findings of an acute ischemic infarction. Atherosclerotic calcification of the cavernous portions of the internal carotid arteries bilaterally. There is thickening of the cerebellar tentorium. Subdural hematoma in the cerebellar tentorium should be ruled out. Normal visualized paranasal sinuses. CT/Brain/Head without Contrast IMPRESSION: Petechial hemorrhage in the left frontoparietal gyri. Findings suggestive of a small subdural hematoma of the cerebellar tentorium. Electronically Signed: Warren Coombs MD at 12:24 EST ,
[2022-04-03 12:00] VITALS: BP 108/54; PULSE 95; RESP 20; TEMP 36.8; O2SAT 100
[2022-04-03 12:15] VITALS: BP 118/46; PULSE 90; RESP 16; TEMP 36.3; O2SAT 98
--- NOTE | 2022-04-03 12:17 | PN.RENAL_ITS ---
Subjective Subjective stable, no changes. Objective Data Objective Data Vital Signs: Vital Signs Temp Pulse Resp BP Pulse Ox O2 Del Method FiO2 97.6 F L 90 18 112/46 L 100 Room Air 100 04/03/22 08:00 04/03/22 08:00 04/03/22 08:00 04/03/22 08:00 04/03/22 08:00 04/03/22 09:20 03/31/22 18:30 Oxygen Delivery Method Room Air Weight: 72.62 kg Body Mass Index (BMI) 24.5 Intake & Output: Intake and Output for Last 24 Hours 04/01/22 04/02/22 04/03/22 23:59 23:59 23:59 Intake Total 1840 / 2040 1138.34 / 1138.34 1220 / 1220 Output Total 862 / 862 0 / 0 411 / 411 Balance 978 / 1178 1138.34 / 1138.34 809 / 809 Lab / Micro Data Result Diagrams: 04/03/22 05:55 04/03/22 05:55 Labs: Laboratory Results - last 24 hr 04/02/22 05:47: Diff Path Review Reviewed 04/02/22 17:23: POC Glucose 108 H 04/02/22 21:51: POC Glucose 109 H 04/03/22 05:55: WBC 12.5 H, RBC 2.38 L, Hgb 7.8 L, Hct 23.7 L, MCV 99.6 H, MCH 32.8 H, MCHC 32.9, RDW Std Deviation 57.3 H, RDW Coeff of Pepe 15.9 H, Plt Count 117 L, MPV 11.2, Immature Gran % (Auto) 1.300 H, Neut % (Auto) 74.2 H, Lymph % (Auto) 8.5 L, Powell % (Auto) 11.1 H, Eos % (Auto) 4.4, Baso % (Auto) 0.5, Absolute Neuts (auto) 9.3 H, Absolute Lymphs (auto) 1.06, Nucleated RBC % 0 04/03/22 05:55: Sodium 137, Potassium 3.7, Chloride 104, Carbon Dioxide 19.0 L, Anion Gap 14, BUN 42 H, Creatinine 10.80 H*, Estim Creat Clear Calc 3.89, Est GFR (MDRD) Af Amer 5 L, Est GFR (MDRD) Non-Af 4 L, BUN/Creatinine Ratio 3.9 L, Glucose 125 H, Calcium 8.5 04/03/22 06:26: POC Glucose 130 H 04/03/22 11:09: POC Glucose 163 H Micro: Microbiology 04/02/22 17:40 Stool Stool Occult Blood (NATALIE) - Final Occult Blood Positive Radiography Diagnostic Testing: Radiology Impression Echocardiogram 04/01/22 20:23 Interpretation Summary Normal LV size. Mild concentric left ventricular hypertrophy. Left ventricular systolic function is normal. The estimated ejection fraction is 55 %. Mild focal aortic valve calcification. Ordering Physician: Arabella Li Referring Physician: Hamzah Wallis Performed By: Rock Moura RCS Rhythm Strip Rhythm Strip: Sinus Rhythm Rate: 91 Ectopy: None Physical Exam Const alert and oriented x3 Resp clear to auscultation bilaterally Extremity no clubbing, cyanosis or edema Neuro Neuro Narrative: facial droop less pronounced, right sided weakness Sensorium / Orientation: awake and alert Psych cooperative Assessment & Plan Assessment/Plan (1) End-stage renal disease on peritoneal dialysis: PLAN: We will arrange CCPD tonight all 1.5% solution 2 L fill volume 5 exchanges over 10 hours (2) Acute hypokalemia: PLAN: resolved (3) Acute dehydration: PLAN: IV fluids as needed (4) C. difficile diarrhea: (5) Hypotension: PLAN: IV fluids as needed hold blood pressure medication (6) Anemia in chronic kidney disease (CKD): QUALIFIERS: Chronic kidney disease stage: stage 4 (severe) Qualified Code(s): N18.4 - Chronic kidney disease, stage 4 (severe); D63.1 - Ane indy in chronic kidney disease PLAN: Hemoglobin 7.8g, LETI (7) Essential (primary) hypertension: PLAN: BP low normal (8) Diabetes mellitus type 2, controlled, with complications: (9) Hyperphosphatemia: PLAN: phos improved, on binders (10) Hypoalbuminemia: PLAN: Protein supplement (11) Debility: PLAN: Physical therapy assessment, speech therapy (12) Stroke: PLAN: telemedicine with neurology
--- NOTE | 2022-04-03 12:32 | CASEMGMT ---
Tertiary facilities in-network with patient's insurance: [facility], [facility], , [facility], [facility].
--- NOTE | 2022-04-03 15:31 | CASEMGMT ---
Patient is being transferred to [facility]. Linda Montgomery MSW LITZY
[2022-04-03 15:49] VITALS: BP 112/51; PULSE 93; RESP 20; TEMP 36.3; O2SAT 98
--- NOTE | 2022-04-03 15:50 | DCINST_ITS ---
Discharge Instructions Diet Discharge Diet: - (Renal diet) Follow Up Care Test Results: Test results from this visit will be discussed in further detail at your follow- up appointment, if applicable. Discharge Plan Admission Admit Date/Time: 03/31/22 11:26 Primary Reason for Your Visit: Generalized weakness Attending Provider: Nia Johnson Primary Care Provider: Hamzah Wallis Consulting Providers: Ivanna Aguilar ; Marcos Zarate Instructions Patient Instructions: Peritoneal Dialysis (PD) Discharge Orders/Prescriptions Prescriptions: No Action (DME) blood sugar diagnostic Strip See Rx Instructions .ROUTE .MEDSUPPLY Qty: 10 Rx Instructions: check blood glucose twice daily for type 2 DM coenzyme Q10 50 mg tablet 50 mg PO DAILY doxazosin [Cardura] 4 mg tablet 4 mg PO DAILY carvedilol 25 mg tablet 25 mg PO BID Rx Instructions: TAKE 1 TABLET BY MOUTH TWICE A DAY insulin glargine [Lantus Solostar U-100 Insulin] 100 unit/mL (3 mL) insulin pen 22 unit subcut BIDCM tramadol 50 mg tablet 50 mg PO DAILY hydroxychloroquine [Plaquenil] 200 mg tablet 200 mg PO BID Jeannette-C with Bioflavonoids 1 EACH tablet 1 each PO DAILY Hold Instructions: Hold for 2 weeks. calcitriol [Rocaltrol] 0.25 mcg capsule 0.25 mcg PO DAILY Renal Caps 1 mg capsule 1 cap PO DAILY Label Comments: TAKE 1 CAPSULE BY MOUTHuDAILYc omeprazole 20 mg capsule,delayed release(DR/EC) 20 mg PO DAILY (DME) pen needle, diabetic [BD Ultra-Fine Orig Pen Needle] 29 gauge x 1/2 needle See Rx Instructions MISCELLANEOUS Rx Instructions: As directed aspirin 81 mg Tablet,Delayed Release (Dr/Ec) 81 mg PO BREAKFAST Qty: 30 0RF calcium acetate(phosphat bind) 667 mg Capsule 1,334 mg PO TIDCM Qty: 90 0RF hydralazine 100 mg tablet 50 mg PO TID Qty: 30 0RF Rx Instructions: Hold for SBP less than 130 mmHg valsartan 160 mg tablet 160 mg PO DAILY Qty: 90 3RF Rx Instructions: Hold for SBP less than 130 mmHg amlodipine 10 mg tablet 10 mg PO DAILY Label Comments: TAKE 1 TABLET BY MOUTH EVERY DAY AT LUNCH (DME) nishant placard See Rx Instructions .Route .MEDSUPPLY Qty: 1 0RF Rx Instructions: As directed, Length of time: 5 years (DME) OneTouch Ultra Test Strip See Rx Instructions .ROUTE .MEDSUPPLY Qty: 100 3RF Rx Instructions: use to check blood glucose twice daily as directed isosorbide mononitrate 60 mg tablet extended release 24 hr 60 mg PO LUNCH Qty: 90 1RF Referrals / Follow Up: Hamzah Wallis MD [Primary Care Provider] - Disposition Disposition (needs filled in before D/C Order can be placed): [facility]
--- NOTE | 2022-04-03 15:53 | DS.PCM_ITS ---
Providers Date of Admission: 03/31/22 Date of Discharge: 04/03/22 Primary Care Physician: Dr. Hamzah Wallis MD Consultations 03/31/22 13:42 Consult: Nephrology Routine Consulting Provider: Ivanna Aguilar Reason for Consult: CKD EMERGENT Consult: No Notified: Yes Date Notified: 03/31/22 Time Notified: 12:00 Method of Notification: Verbal 04/03/22 07:39 Consult: Gastroenterology Routine Consulting Provider: [facility] Reason for Consult: hgb drop, +FOBT, need for DAPT or poss asa+full dose AC EMERGENT Consult: No Notified: Yes Date Notified: 04/03/22 Time Notified: 07:39 Method of Notification: Text Reason For Visit: HYPOKALEMIA Diagnosis Discharge Diagnosis (1) Ischemic cerebrovascular accident (CVA): Status: Acute Code(s): I63.9 - Cerebral infarction, unspecified (2) End-stage renal disease on peritoneal dialysis: Status: Acute Code(s): N18.6 - End stage renal disease; Z99.2 - Dependence on renal dialysis (3) Acute hypokalemia: Status: Acute Code(s): E87.6 - Hypokalemia (4) Acute dehydration: Status: Acute Code(s): E86.0 - Dehydration (5) C. difficile diarrhea: Status: Acute Code(s): A04.72 - Enterocolitis due to Clostridium difficile, not specified as recurrent (6) Hypotension: Status: Acute Code(s): I95.9 - Hypotension, unspecified (7) Anemia in chronic kidney disease (CKD): Status: Chronic Code(s): N18.9 - Chronic kidney disease, unspecified; D63.1 - Anemia in chronic kidney disease Qualifiers: Chronic kidney disease stage: stage 4 (severe) Qualified Code(s): N18.4 - Chronic kidney disease, stage 4 (severe); D63.1 - Anemia in chronic kidney disease (8) Essential (primary) hypertension: Status: Chronic Code(s): I10 - Essential (primary) hypertension (9) Diabetes mellitus type 2, controlled, with complications: Status: Acute Code(s): E11.8 - Type 2 diabetes mellitus with unspecified complications (10) Hyperphosphatemia: Status: Acute Code(s): E83.39 - Other disorders of phosphorus metabolism (11) Hypoalbuminemia: Status: Acute Code(s): E88.09 - Other disorders of plasma-protein metabolism, not elsewhere classified (12) Debility: Status: Acute Code(s): R53.81 - Other malaise Plan #Bilateral lacunar ischemic CVAs, likely embolic #Acute on chronic anemia #Type 2 diabetes mellitus #Severe symptomatic hypokalemia #Hypertension #End-stage renal disease on peritoneal dialysis #History of previous TIA #Psoriasis Medications at Discharge Home Medications ascorbate calcium-bioflavonoid 500 mg-200 mg tablet (Jeannette-C with Bioflavonoids) 1 each PO DAILY SUPPLEMENT 05/03/20 disability placard #1 ea 05/27/20 hydroxychloroquine 200 mg tablet (Plaquenil) 200 mg PO BID arthritis 07/06/20 calcitriol 0.25 mcg capsule (Rocaltrol) 0.25 mcg PO DAILY SUPPLEMENT 07/28/20 blood sugar diagnostic #10 ea 09/30/20 blood sugar diagnostic (Hot Mix Mobileuch Ultra Test strips) #100 ea 10/17/20 isosorbide mononitrate 60 mg tablet,extended release 24 hr 60 mg PO LUNCH heart #90 tabs 03/31/21 coenzyme Q10 50 mg tablet 50 mg PO DAILY SUPPLEMENT 05/18/21 tramadol 50 mg tablet 50 mg PO DAILY MUSCLE RELAXANT 11/30/21 omeprazole 20 mg capsule,delayed release 20 mg PO DAILY GERD 02/02/22 pen needle, diabetic 29 gauge x 1/2 (BD Ultra-Fine Original Pen Needle) 02/02/22 vitamin B complex and vitamin C no.20-folic acid 1 mg capsule (Renal Caps) 1 cap PO DAILY SUPPLEMENT 02/02/22 carvedilol 25 mg tablet 25 mg PO BID HEART 02/13/22 doxazosin 4 mg tablet (Cardura) 4 mg PO DAILY HEART 02/15/22 insulin glargine 100 unit/mL (3 mL) subcutaneous pen (Lantus Solostar U-100 Insulin) 22 unit subcut BIDCM DM 02/28/22 aspirin 81 mg tablet,delayed release 81 mg PO BREAKFAST #30 tabs 03/14/22 calcium acetate(phosphat bind) 667 mg capsule 1,334 mg PO TIDCM #90 caps 03/14/22 hydralazine 100 mg tablet 50 mg PO TID HTN #30 tabs 03/14/22 valsartan 160 mg tablet 160 mg PO DAILY heart #90 tabs 03/14/22 amlodipine 10 mg tablet 10 mg PO DAILY BP 03/31/22 Hospital Course Procedures - (EEG, MRI head, CT head) Summary of Care Provided Minutes Spent on Discharge: 45 Hospital Course: KAYLI PELAEZ, is a 76 F with past medical history signal for end-stage kidney disease on peritoneal dialysis at home, recent hospitalization for C. difficile colitis for which patient was discharged on Dificid presents to the hospital with generalized weakness 03/31/22. She also has been hypotensive and has been feeling lightheaded. She was started on potassium for her hypokalemia and IV fluids and admitted. She began to improve after blood pressure medications were adjusted and she was given fluids until 04/01 when she had new right facial droop and upper extremity weakness. Neurology noted low NIH and did not feel deficits were severe enough for tPA and routine stroke work-up recommended. NIH was 7 in the morning with worsening right hand weakness but she is out of window for tPA and as symptoms started at 1900 the day prior she is out of the window for intervention. MRI demonstrated small acute infarct in the anterior inferior aspect of the left thalamic lobe with numerous additional deep white matter and cortical infarcts scattered throughout the superior aspects of the bilateral parietal lobes as well as a few acute infarcts seen in the anterior superior aspects of the bilateral frontal lobes. Documentation on previous echoes had noted that there had previously been a bubble study that was negative and it was not commented on specifically in our echocardiogram. Neurology was new renotified and recommended aspirin and Plavix for 3 weeks but up to 90 days may be reasonable as well as long-term monitor for A. fib and they did not recommend empirically anticoagulating. She had multiple intolerances to statins and gemfibrozil so these were not started. Following day she had slight decreased level of consciousness as well as some jerking in her extremity and EEG was ordered and CT head obtained which showed petechial hemorrhage in the left frontoparietal gyri as well as findings suggestive of small subdural hematoma of the cerebellar tentorium. Stat renotified neurology who recommended holding aspirin and Plavix and repeating CT in the a.m. and if stable resuming baby aspirin also recommended Keppra 500 and then to 50 twice daily given her peritoneal dialysis. Discussed the patient will need transfer and she did not f eel so given her stability but recommended reaching out to [facility] to discuss. Called [facility] and spoke with stroke attending who recommended transfer. Spoke with patient and family and transfer dated. Unfortunately additionally after being started on the aspirin and Plavix she had downtrending hemoglobin and some blood was observed in stool, no further bloody bowel movements but positive FOBT. GI was consulted, IV PPI twice daily, and her heparin had been discontinued (this was prior to decreased level of consciousness, arm twitching, and bleed found on CT.) Stroke call physician informed of this during phone call as well. 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 On day of discharge she did have increased sleepiness and had the persistent deficits in right upper extremity and right side of face but had no other co mplaints. Transferred to [facility] [place]. Physical Exam Const alert and no apparent distress Constitutional Narrative: Oriented HEENT head/scalp atraumatic Eyes Eyes Narrative: EOM grossly intact, anicteric Neck supple Resp normal respiratory effort and clear to auscultation bilaterally Cardio regular rate and regular rhythm GI soft to palpation, non-tender and non-distended Extremity Extremity Narrative: No edema appreciated Neuro Neuro Narrative: Right-sided lower facial droop appreciated, Right upper extremity uncoordinated and 2 out of 5 strength compared to 4 out of 5 in left upper extremity, right lower extremity 4 out of 5 strength and left lower extremity 3 out of 5 strength. Psych Psych Narrative: Cooperative Weight / BMI Weight Weight: 72.62 kg Body Mass Index (BMI) 24.5 ABG / Lab / Microbiology Data Result Diagrams: 04/03/22 05:55 04/03/22 05:55 Laboratory: Laboratory Results - last 24 hr 04/02/22 17:23: POC Glucose 108 H 04/02/22 21:51: POC Glucose 109 H 04/03/22 05:55: WBC 12.5 H, RBC 2.38 L, Hgb 7.8 L, Hct 23.7 L, MCV 99.6 H, MCH 32.8 H, MCHC 32.9, RDW Std Deviation 57.3 H, RDW Coeff of Pepe 15.9 H, Plt Count 117 L, MPV 11.2, Immature Gran % (Auto) 1.300 H, Neut % (Auto) 74.2 H, Lymph % (Auto) 8.5 L, Ogle % (Auto) 11.1 H, Eos % (Auto) 4.4, Baso % (Auto) 0.5, Absolute Neuts (auto) 9.3 H, Absolute Lymphs (auto) 1.06, Nucleated RBC % 0 04/03/22 05:55: Sodium 137, Potassium 3.7, Chloride 104, Carbon Dioxide 19.0 L, Anion Gap 14, BUN 42 H, Creatinine 10.80 H*, Estim Creat Clear Calc 3.89, Est GFR (MDRD) Af Amer 5 L, Est GFR (MDRD) Non-Af 4 L, BUN/Creatinine Ratio 3.9 L, Glucose 125 H, Calcium 8.5 04/03/22 06:26: POC Glucose 130 H 04/03/22 11:09: POC Glucose 163 H Microbiology: Microbiology 04/02/22 17:40 Stool Stool Occult Blood (NATALIE) - Final Occult Blood Positive Radiography Diagnostic Testing: Radiology Impression Brain CT 04/03/22 11:46 IMPRESSION: Petechial hemorrhage in the left frontoparietal gyri. Findings suggestive of a small subdural hematoma of the cerebellar tentorium. Electronically Signed: Warren Coombs MD at 12:24 EST , ADDENDUM: 04/03/22 1235 IMPRESSION: Petechial hemorrhage in the left frontoparietal gyri. Findings suggestive of a small subdural hematoma of the cerebellar tentorium. N.B. : The above Results were Read Back by Warren Coombs MD to Micaela Alfaro OT, and understanding confirmed on 04/03/2022 12:28:42 (ET). Electronically Signed: Warren Coombs MD at 12:24 EST , D/C Instructions Discharge Diet: - (Renal diet) Meaningful Use Info Meaningful Use Diagnoses (Choose all that apply): Hemorrhagic CVA and Ischemic CVA Ischemic Stroke Antithrombotic order at d/c?: No Reason antithrombotic not ordered: Medical Contraindication Dx of Atrial fib/flutter?: No Anticoagulant at discharge?: No Reason anticoagulant not ordered: Medical Contraindication Statins at discharge?: No Reason Statin not ordered: Drug Intolerance Primary Dx Acute Ischemic CVA?: Yes IV tPA ordered during stay?: No Reason IV t-PA not ordered: Medical Contraindication Discharge Plan Admission Admit Date/Time: 03/31/22 11:26 Primary Reason for Your Visit: Generalized weakness Attending Provider: Nia Johnson Primary Care Provider: Hamzah Wallis Consulting Providers: Ivanna Aguilar ; Marcos Zarate Instructions Patient Instructions: Peritoneal Dialysis (PD) Discharge Orders/Prescriptions Prescriptions: No Action (DME) blood sugar diagnostic Strip See Rx Instructions .ROUTE .MEDSUPPLY Qty: 10 Rx Instructions: check blood glucose twice daily for type 2 DM coenzyme Q10 50 mg tablet 50 mg PO DAILY doxazosin [Cardura] 4 mg tablet 4 mg PO DAILY carvedilol 25 mg tablet 25 mg PO BID Rx Instructions: TAKE 1 TABLET BY MOUTH TWICE A DAY insulin glargine [Lantus Solostar U-100 Insulin] 100 unit/mL (3 mL) insulin pen 22 unit subcut BIDCM tramadol 50 mg tablet 50 mg PO DAILY hydroxychloroquine [Plaquenil] 200 mg tablet 200 mg PO BID Jeannette-C with Bioflavonoids 1 EACH tablet 1 each PO DAILY Hold Instructions: Hold for 2 weeks. calcitriol [Rocaltrol] 0.25 mcg capsule 0.25 mcg PO DAILY Renal Caps 1 mg capsule 1 cap PO DAILY Label Comments: TAKE 1 CAPSULE BY MOUTHuDAILYc omeprazole 20 mg capsule,delayed release(DR/EC) 20 mg PO DAILY (DME) pen needle, diabetic [BD Ultra-Fine Orig Pen Needle] 29 gauge x 1/2 needle See Rx Instructions MISCELLANEOUS Rx Instructions: As directed aspirin 81 mg Tablet,Delayed Release (Dr/Ec) 81 mg PO BREAKFAST Qty: 30 0RF calcium acetate(phosphat bind) 667 mg Capsule 1,334 mg PO TIDCM Qty: 90 0RF hydralazine 100 mg tablet 50 mg PO TID Qty: 30 0RF Rx Instructions: Hold for SBP less than 130 mmHg valsartan 160 mg tablet 160 mg PO DAILY Qty: 90 3RF Rx Instructions: Hold for SBP less than 130 mmHg amlodipine 10 mg tablet 10 mg PO DAILY Label Comments: TAKE 1 TABLET BY MOUTH EVERY DAY AT LUNCH (DME) disability placard See Rx Instructions .Route .MEDSUPPLY Qty: 1 0RF Rx Instructions: As directed, Length of time: 5 years (DME) OneTouch Ultra Test Strip See Rx Instructions .ROUTE .MEDSUPPLY Qty: 100 3RF Rx Instructions: use to check blood glucose twice daily as directed isosorbide mononitrate 60 mg tablet extended release 24 hr 60 mg PO LUNCH Qty: 90 1RF Referrals / Follow Up: Hamzah Wallis MD [Primary Care Provider] - Disposition Disposition (needs filled in before D/C Order can be placed): Acute Care Hospital Charges/Coding Visit Charges Inpatient E&M: 33355 Disch Hosp >30min
--- NOTE | 2022-04-03 16:13 | NURSING ---
Two attempts in calling main ER for report at [facility] with no answer after call rings
[2022-04-03 17:01] LABS: Bedside Glucose 112 mg/dL (74-106)
== END 2022-04-03 17:10 | disposition short-term general hospital (02) | DRG 64 ==
LOC: ED 11:27 → PCU 12:23
PROVIDERS: Family Medicine; Admitting Provider Internal Medicine; Emergency Provider Emergency Medicine; PCP Internal Medicine; Visit Provider Internal Medicine
DX: I63.49 Cerebral infarction due to embolism of other cerebral artery (principal); N18.6 End stage renal disease; A04.72 Enterocolitis due to Clostridium difficile, not specified as recurrent; I13.2 Hypertensive heart and chronic kidney disease with heart failure and with stage 5 chronic kidney disease, or end stage renal disease; I50.32 Chronic diastolic (congestive) heart failure; E11.649 Type 2 diabetes mellitus with hypoglycemia without coma; D63.1 Anemia in chronic kidney disease; E83.39 Other disorders of phosphorus metabolism; E88.09 Other disorders of plasma-protein metabolism, not elsewhere classified; E86.0 Dehydration; I48.91 Unspecified atrial fibrillation; E11.22 Type 2 diabetes mellitus with diabetic chronic kidney disease; E11.40 Type 2 diabetes mellitus with diabetic neuropathy, unspecified; Z79.4 Long term (current) use of insulin; Z99.2 Dependence on renal dialysis; E87.6 Hypokalemia; G47.33 Obstructive sleep apnea (adult) (pediatric); E86.1 Hypovolemia; L40.9 Psoriasis, unspecified; K21.9 Gastro-esophageal reflux disease without esophagitis; E78.5 Hyperlipidemia, unspecified; I65.23 Occlusion and stenosis of bilateral carotid arteries; R53.81 Other malaise; Z79.82 Long term (current) use of aspirin; Z66 Do not resuscitate; Z82.3 Family history of stroke; Z79.02 Long term (current) use of antithrombotics/antiplatelets
CPT/HCPCS: 36415; 70450; 70496; 70498; 70551; 80048; 80053; 80061; 82274; 82962; 83036; 83605; 83735; 84100; 84443; 85025; 87040; 90947; 92523; 92610; 93005; 93306; 94668; 95819; 97162; 97166; 97802; 99252; 99285; J7030; Q9967; A4216; G0257; G0463; J2405; Q5106